=== PATIENT | female | born 1945 | race Caucasian/White ===

== ENCOUNTER 2023-08-09 11:08 | Outpatient (OUT) | payer MEDICARE, SELFPAY ==
[2023-08-09 14:30] LABS: Albumin Level 3.4 g/dL (3.4-5.0); Anion Gap 12.5; Calcium 8.8 mg/dL (8.5-10.1); Carbon Dioxide 27.6 mmol/L (21.0-32.0); Chloride 106 mmol/L (98-107); Estimated GFR (African America 29 (>=60); Estimated GFR (Non-African Ame 24 (>=60); Glucose 137 mg/dL (74-106); Phosphorus 4.3 mg/dL (2.6-4.7); Potassium 5.1 mmol/L (3.5-5.1); Sodium 141 mmol/L (136-145)
== END 2023-08-09 11:09 | disposition home or self-care (01) ==
LOC: LAB 11:08
PROVIDERS: PCP Internal Medicine
DX: I12.9 Hypertensive chronic kidney disease with stage 1 through stage 4 chronic kidney disease, or unspecified chronic kidney disease (principal); N18.4 Chronic kidney disease, stage 4 (severe)
CPT/HCPCS: 36415; 80069

== ENCOUNTER 2023-09-19 11:20 | Outpatient (OUT) | payer MEDICARE, SELFPAY ==
--- NOTE | 2023-09-19 11:26 | MM_ITS ---
Patient: ANAY NIEVES Exam Date: 09/19/2023 : 1945 Gender:F Ordering : DR MADDISON MENDEZ Admission #: [id number] Family : NON-STAFF PHYSICIAN Order #: [id number] CLICK HERE TO VIEW EXAM RADIOLOGY REPORT PROCEDURE: MM TOMOSYNTHESIS SCREENING BI COMPARISON: MG MAMM SCREEN 3D PEDRO CAD, 09/10/2021. MG MAMM SCREEN PEDRO W CAD, 08/31/2020. MG MAMM PEDRO SCRN W CAD DIG, 10/23/2013. MG MAMM SCREEN 3D PEDRO CAD, 09/13/2022. INDICATIONS: Screening Calculator Name NCI Breast Cancer Risk Assessment Tool 5 Year Breast Cancer Risk 3.00% Lifetime Breast Cancer Risk 4.60% Personal Breast Cancer No Personal Ovarian Cancer No Treatments HYSTERECTECTOMY AND PEDRO OOPHERECTOMY, RADIATION TREATMENTS Family Cancers None LOCATION: [facility] BREAST COMPOSITION: Scattered areas fibroglandular density. FINDINGS: DIAGNOSTIC CATEGORY 2--BENIGN FINDING: RIGHT BREAST: No significant suspicious finding. Stable biopsy marker clips and benign calcifications. No significant change has occurred. LEFT BREAST: No significant suspicious finding. Stable benign-appearing calcifications. No significant change has occurred. RECOMMENDATIONS: ROUTINE MAMMOGRAM AND CLINICAL EVALUATION IN 12 MONTHS. PLEASE NOTE: A NORMAL MAMMOGRAM DOES NOT EXCLUDE THE POSSIBILITY OF BREAST CANCER. A CLINICALLY SUSPICIOUS PALPABLE LUMP SHOULD BE BIOPSIED. Dictated by: Austin Benton M.D. on 09/20/2023 at 13:45 Approved by: Austin Benton M.D. on 09/20/2023 at 13:47
== END 2023-09-19 11:21 | disposition home or self-care (01) ==
LOC: MAMMO 11:21
PROVIDERS: Visit Provider Obstetrics & Gynecology
DX: Z12.31 Encounter for screening mammogram for malignant neoplasm of breast (principal)
CPT/HCPCS: 77063; 77067

== ENCOUNTER 2023-10-10 13:19 | Outpatient (OUT) | payer MEDICARE, SELFPAY ==
[2023-10-10 13:52] LABS: Creatinine Urine Random 84.04 mg/dL (20.00-300.00); Microalbum Creatinine Ratio Ur 80.9 mg/g (0.0-29.9); Microalbumin Urine Random 6.8 mg/dL (<=30.0)
[2023-10-10 14:02] LABS: Albumin Level 3.6 g/dL (3.4-5.0); Anion Gap 15.8; BUN Creatinine Ratio 46.1; Calcium 9.1 mg/dL (8.5-10.1); Carbon Dioxide 27.3 mmol/L (21.0-32.0); Chloride 103 mmol/L (98-107); Estimated GFR (African America 21 (>=60); Estimated GFR (Non-African Ame 17 (>=60); Glucose 124 mg/dL (74-106); Phosphorus 4.4 mg/dL (2.6-4.7); Potassium 4.1 mmol/L (3.5-5.1); Sodium 142 mmol/L (136-145)
[2023-10-10 14:17] LABS: Basophils Absolute Auto 0.1 10^3/uL (0.0-0.1); Eosinophils Absolute Auto 0.3 10^3/uL (0.0-0.7); Eosinophils Percent Auto 3.3 % (0.9-7.0); Hematocrit 37.2 % (36.0-48.0); Hemoglobin 12.3 g/dL (12.0-16.0); Immature Granulocytes Abs Auto 0.02 10^3/uL (0.00-0.03); Immature Granulocytes Pct Auto 0.2 % (0.0-0.5); Lymphocytes Absolute Auto 2.5 10^3/uL (1.2-3.8); Lymphocytes Percent Auto 23.7 % (20.5-60.0); Mean Corpuscular HGB Conc 33.1 g/dL (29.9-35.2); Mean Corpuscular Volume 93.7 fL (81.0-99.0); Mean Platelet Volume 10.4 fL (9.5-13.5); Monocytes Absolute Auto 0.9 10^3/uL (0.3-0.8); Monocytes Percent Auto 8.7 % (1.7-12.0); Neutrophils Absolute Auto 6.5 10^3/uL (1.4-6.5); Neutrophils Percent Auto 63.1 % (43.0-75.0); Platelet Count 254 10^3/uL (150-450); Red Blood Count 3.97 10^6/uL (4.20-5.40); Red Cell Distribution Width 13.3 % (11.0-15.0); White Blood Count 10.4 10^3/uL (4.0-11.0)
[2023-10-11 15:09] LABS: PTH, Intact 17 pg/mL (15-65)
== END 2023-10-10 13:20 | disposition home or self-care (01) ==
LOC: LAB 13:20
DX: I12.9 Hypertensive chronic kidney disease with stage 1 through stage 4 chronic kidney disease, or unspecified chronic kidney disease (principal); N18.4 Chronic kidney disease, stage 4 (severe); R80.9 Proteinuria, unspecified; E87.5 Hyperkalemia; E11.22 Type 2 diabetes mellitus with diabetic chronic kidney disease
CPT/HCPCS: 36415; 80069; 82043; 82306; 82570; 83970; 85025

== ENCOUNTER 2023-11-06 14:45 | Outpatient (OUT) | payer MEDICARE, SELFPAY ==
[2023-11-06 15:52] LABS: Albumin Level 3.5 g/dL (3.4-5.0); Anion Gap 11.9; BUN Creatinine Ratio 48.3; Calcium 9.1 mg/dL (8.5-10.1); Carbon Dioxide 29.8 mmol/L (21.0-32.0); Chloride 104 mmol/L (98-107); Estimated GFR (African America 23 (>=60); Estimated GFR (Non-African Ame 19 (>=60); Glucose 237 mg/dL (74-106); Phosphorus 4.7 mg/dL (2.6-4.7); Potassium 4.7 mmol/L (3.5-5.1); Sodium 141 mmol/L (136-145)
== END 2023-11-06 14:46 | disposition home or self-care (01) ==
LOC: LAB 14:49
DX: I12.9 Hypertensive chronic kidney disease with stage 1 through stage 4 chronic kidney disease, or unspecified chronic kidney disease (principal); N18.4 Chronic kidney disease, stage 4 (severe)
CPT/HCPCS: 36415; 80069

== ENCOUNTER 2023-11-15 13:45 | Outpatient (OUT) | payer MEDICARE, SELFPAY ==
[2023-11-15 14:13] LABS: Albumin Level 3.2 g/dL (3.4-5.0); Anion Gap 13.5; BUN Creatinine Ratio 55.6; Calcium 9.3 mg/dL (8.5-10.1); Carbon Dioxide 27.1 mmol/L (21.0-32.0); Chloride 102 mmol/L (98-107); Estimated GFR (African America 26 (>=60); Estimated GFR (Non-African Ame 21 (>=60); Glucose 242 mg/dL (74-106); Phosphorus 3.5 mg/dL (2.6-4.7); Potassium 4.6 mmol/L (3.5-5.1); Sodium 138 mmol/L (136-145)
== END 2023-11-15 13:46 | disposition home or self-care (01) ==
LOC: LAB 13:45
DX: I12.9 Hypertensive chronic kidney disease with stage 1 through stage 4 chronic kidney disease, or unspecified chronic kidney disease (principal); N18.4 Chronic kidney disease, stage 4 (severe)
CPT/HCPCS: 36415; 80069

== ENCOUNTER 2023-11-21 12:47 | Outpatient (OUT) | payer MEDICARE, SELFPAY ==
[2023-11-21 13:36] LABS: Albumin Level 3.1 g/dL (3.4-5.0); BUN Creatinine Ratio 45.9; Calcium 9.4 mg/dL (8.5-10.1); Carbon Dioxide 25.5 mmol/L (21.0-32.0); Chloride 104 mmol/L (98-107); Estimated GFR (African America 26 (>=60); Estimated GFR (Non-African Ame 22 (>=60); Glucose 404 mg/dL (74-106); Phosphorus 3.9 mg/dL (2.6-4.7); Sodium 135 mmol/L (136-145)
[2023-11-21 14:10] LABS: Potassium 6.5 mmol/L (3.5-5.1)
== END 2023-11-21 12:48 | disposition home or self-care (01) ==
LOC: LAB 12:47
DX: I12.9 Hypertensive chronic kidney disease with stage 1 through stage 4 chronic kidney disease, or unspecified chronic kidney disease (principal); N18.4 Chronic kidney disease, stage 4 (severe)
CPT/HCPCS: 36415; 80069

== ENCOUNTER 2023-11-21 16:15 | Observation (INO) | payer MEDICARE, SELFPAY ==
[2023-11-21] VITALS (12 sets, daily range): BP systolic 139–205; BP diastolic 68–108; PULSE 65–88; RESP 18–26; TEMP 36.3–36.6; O2SAT 95–99; BMI 33.7; BMI 34.2
--- NOTE | 2023-11-21 16:41 | PC.NURSE ---
Patient reports getting lab work done today and was told by her horticultural farm manager office to come to ER due to elevated potassium level. Patient denies any discomfort.
--- NOTE | 2023-11-21 16:42 | ECG_ITS ---
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
--- NOTE | 2023-11-21 16:45 | ED.GENADUL1 ---
HPI - General Adult General Chief complaint: Recheck/Abnormal Lab/Rx Stated complaint: SENT OVER BY DR Time Seen by Provider: 11/21/23 16:20 Source: patient Mode of arrival: walk-in Limitations: no limitations History of Present Illness HPI narrative: Patient sees a drug abuse worker in [place] for stage 4 kidney disease. She has been getting blood testing regularly for the last several weeks because her kidney function has been slowly worsening. She had blood drawn today at [facility] and the patient's BUN and K were markedly elevated so the OUTER DIAMETER GRINDER from the Internal Controls Consultant's office told the patient to go to the nearest ED. The patient has no complaints - no pain , nausea, vomiting. She denied any fluid loss recently or decreased PO intake. She had been taking diuretics previously and stopped them - at the direction of the drug abuse worker - about a week ago. She does not get dialysis. Related Data Home Medications Medication Instructions Recorded Confirmed aspirin 81 mg tablet,delayed 81 mg PO DAILY 11/21/23 11/21/23 release biotin 10,000 mcg capsule 10,000 mcg PO DAILY 11/21/23 11/21/23 carvedilol 25 mg tablet 25 mg PO BID 11/21/23 11/21/23 finerenone 10 mg tablet (Kerendia) 10 mg PO DAILY 11/21/23 11/21/23 insulin glargine 100 unit/mL (3 33 unit subcut DAILY 11/21/23 11/21/23 mL) subcutaneous pen (Lantus Solostar U-100 Insulin) magnesium oxide 500 mg capsule 500 mg PO DAILY 11/21/23 11/21/23 montelukast 10 mg tablet 10 mg PO DAILY 11/21/23 11/21/23 rosuvastatin 10 mg tablet 10 mg PO DAILY 11/21/23 11/21/23 sacubitril 97 mg-valsartan 103 mg 1 tab PO BID 11/21/23 11/21/23 tablet (Entresto) sodium zirconium cyclosilicate 10 10 g PO DAILY 11/21/23 11/21/23 gram oral powder packet (Lokelma) torsemide 20 mg tablet mg 11/21/23 Allergies Allergy/AdvReac Type Severity Reaction Status Date / Time Penicillins Allergy Severe Verified 11/21/23 16:31 PFSH [facility] Social History Smoking status: Never smoker Exam Narrative Exam Narrative: Nurses notes and vital signs reviewed and patient is not hypoxic. afebrile General: Well-appearing and in no apparent distress. Skin: Warm, dry, no pallor noted. No rash. Eye: Pupils are equal, round and EOMI. No scleral icterus. Ears, Nose, Mouth, and Throat: TM are clear, no posterior oropharynx erythema or nasal mucosal hypertrophy, uvula is mid-line Oral mucosa is moist Cardiovascular: Regular Rate and Rhythm without murmur, gallop or rub. Respiratory: No accessory muscle use or respiratory distress. Lungs are clear to auscultation, no wheezing, rales or rhonchi Musculoskeletal: normal ROM, no calf or popliteal tenderness, no lower extremity edema/swelling GI: Abdomen is soft, non-distended. Normal bowel sounds. No tenderness to palpation. No rebound, guarding, or rigidity noted. Neurological: A&O x4. No cranial nerve dysfunction observed. No truncal ataxia. Moves all extremities. Sensation intact. Psychiatric: Cooperative and interactive. Normal mood and affect. Constitutional Vital Signs, click to edit/add: Last Vital Signs Temp 97.8 F 11/21/23 16:25 Pulse 74 11/21/23 17:30 Resp 20 11/21/23 17:30 BP 140/72 11/21/23 17:30 Pulse Ox 98 11/21/23 17:30 O2 Del Method Room Air 11/21/23 16:25 Course Vital Signs Vital signs: Vital Signs Temperature 97.8 F 11/21/23 16:25 Pulse Rate 80 11/21/23 16:25 Respiratory Rate 20 11/21/23 16:25 Blood Pressure 164/108 H 11/21/23 16:25 Pulse Oximetry 97 11/21/23 16:25 Oxygen Delivery Method Room Air 11/21/23 16:25 Temperature 97.8 F 11/21/23 16:25 Pulse Rate 74 11/21/23 17:30 Respiratory Rate 20 11/21/23 17:30 Blood Pressure 140/72 11/21/23 17:30 Pulse Oximetry 98 11/21/23 17:30 Oxygen Delivery Method Room Air 11/21/23 16:25 Medical Decision Making MDM Narrative Medical decision making narrative: Patient was placed on monitoring and evaluation advisor and EKG obtained. Blood drawn and sent for evaluation, including repeat of the patient's BMP. She was ordered to receive a liter of NS IVF. ON redraw, the K elevated at 5.6. Her BUn is elevated at 100 and Cr elevated at 2.23. On review of the patient's medical records, the patient had elevated BUN to 124 in September and on November 15. Creatinine and has been about the same. Call placed to the sustainability consultant telehospitalist. Dr Latrice Kemp and I discussed the case and the patient will be admitted to [facility] for treatment of hyperkalemia. Patient ordered to receive calcium, bicarb, dextrose, insulin in the ED. EKG without any worrisome changes. Patient informed of need for admission and is agreeable to over night OBS stay. Lab Data Lab results reviewed: Yes I reviewed the patient's lab results Labs: Lab Results 11/21/23 Range/Units 17:05 WBC 9.8 (4.0-11.0) 10^3/uL RBC 3.98 L (4.20-5.40) 10^6/uL Hgb 11.8 L (12.0-16.0) g/dL Hct 36.3 (36.0-48.0) % MCV 91.2 (81.0-99.0) fL MCH 29.6 (26.7-34.0) pg MCHC 32.5 (29.9-35.2) g/dL RDW 13.4 (11.0-15.0) % Plt Count 233 (150-450) 10^3/uL MPV 10.4 (9.5-13.5) fL Neut % (Auto) 66.3 (43.0-75.0) % Lymph % (Auto) 21.7 (20.5-60.0) % Knox % (Auto) 8.3 (1.7-12.0) % Eos % (Auto) 2.7 (0.9-7.0) % Baso % (Auto) 0.8 (0.2-2.0) % Neut # (Auto) 6.5 (1.4-6.5) 10^3/uL Lymph # (Auto) 2.1 (1.2-3.8) 10^3/uL [place] # (Auto) 0.8 (0.3-0.8) 10^3/uL Eos # (Auto) 0.3 (0.0-0.7) 10^3/uL Baso # (Auto) 0.1 (0.0-0.1) 10^3/uL Abs Immat Gran (auto) 0.02 (0.00-0.03) 10^3/uL Imm/Tot Granulo (auto) 0.2 (0.0-0.5) % Sodium 138 (136-145) mmol/L Potassium 5.6 H (3.5-5.1) mmol/L Chloride 105 (98-107) mmol/L Carbon Dioxide 22.8 (21.0-32.0) mmol/L Anion Gap 15.8 BUN 100.0 H* (7.0-18.0) mg/dL Creatinine 2.23 H (0.55-1.02) mg/dL Est GFR ( Amer) 26 L (>=60) Est GFR (Non-Af Amer) 21 L (>=60) BUN/Creatinine Ratio 44.8 Glucose 243 H (74-106) mg/dL Calcium 9.7 (8.5-10.1) mg/dL Magnesium 2.3 (1.8-2.4) mg/dL Total Bilirubin 0.4 (0.2-1.0) mg/dL AST 18 (15-37) U/L ALT 24 (14-59) U/L Alkaline Phosphatase 105 (46-116) U/L Total Protein 7.3 (6.4-8.2) g/dL Albumin 3.2 L (3.4-5.0) g/dL Globulin 4.1 g/dL Albumin/Globulin Ratio 0.8 ECG Data Attestation: I personally reviewed and interpreted this ECG as follows: Interpretation: EKG interpretation: Emergency Department physician interpretation. Normal sinus rhythm at 75bpm. RBBB. EKG today is unchanged from one obtained 03/25/23.. Discharge Plan Discharge Chief Complaint: Recheck/Abnormal Lab/Rx Clinical Impression: End stage kidney disease, Acute hyperkalemia Patient Disposition: Admitted as Observation Time of Disposition Decision: 18:19 Prescriptions / Home Meds: No Action carvedilol 25 mg tablet 25 mg PO BID montelukast 10 mg tablet 10 mg PO DAILY rosuvastatin 10 mg tablet 10 mg PO DAILY Lokelma 10 gram powder in packet 10 g PO DAILY torsemide 20 mg tablet magnesium oxide 500 mg capsule 500 mg PO DAILY Kerendia 10 mg tablet 10 mg PO DAILY Entresto 97-103 mg tablet 1 tab PO BID aspirin 81 mg tablet,delayed release (DR/EC) 81 mg PO DAILY biotin 10,000 mcg capsule 10,000 mcg PO DAILY insulin glargine [Lantus Solostar U-100 Insulin] 100 unit/mL (3 mL) insulin pen 33 unit subcut DAILY Additional Instructions: dr zepeda, [facility] telemetry Referrals: Physician,Non-Staff, MD [Primary Care Provider] - 1 week
[2023-11-21] MEDS: 0.9 % SODIUM CHLORIDE 1,000 ML 999 ML IV (17:12)
[2023-11-21 17:25] LABS: Basophils Absolute Auto 0.1 10^3/uL (0.0-0.1); Basophils Percent Auto 0.8 % (0.2-2.0); Eosinophils Absolute Auto 0.3 10^3/uL (0.0-0.7); Eosinophils Percent Auto 2.7 % (0.9-7.0); Hematocrit 36.3 % (36.0-48.0); Hemoglobin 11.8 g/dL (12.0-16.0); Immature Granulocytes Abs Auto 0.02 10^3/uL (0.00-0.03); Immature Granulocytes Pct Auto 0.2 % (0.0-0.5); Lymphocytes Absolute Auto 2.1 10^3/uL (1.2-3.8); Lymphocytes Percent Auto 21.7 % (20.5-60.0); Mean Corpuscular HGB Conc 32.5 g/dL (29.9-35.2); Mean Corpuscular Hemoglobin 29.6 pg (26.7-34.0); Mean Corpuscular Volume 91.2 fL (81.0-99.0); Mean Platelet Volume 10.4 fL (9.5-13.5); Monocytes Absolute Auto 0.8 10^3/uL (0.3-0.8); Monocytes Percent Auto 8.3 % (1.7-12.0); Neutrophils Absolute Auto 6.5 10^3/uL (1.4-6.5); Neutrophils Percent Auto 66.3 % (43.0-75.0); Platelet Count 233 10^3/uL (150-450); Red Blood Count 3.98 10^6/uL (4.20-5.40); Red Cell Distribution Width 13.4 % (11.0-15.0); White Blood Count 9.8 10^3/uL (4.0-11.0)
[2023-11-21 17:35] LABS: Alanine Aminotransferase 24 U/L (14-59); Albumin Globulin Ratio 0.8; Albumin Level 3.2 g/dL (3.4-5.0); Alkaline Phosphatase 105 U/L (46-116); Anion Gap 15.8; Aspartate Amino Transferase 18 U/L (15-37); BUN Creatinine Ratio 44.8; Bilirubin Total 0.4 mg/dL (0.2-1.0); Calcium 9.7 mg/dL (8.5-10.1); Carbon Dioxide 22.8 mmol/L (21.0-32.0); Chloride 105 mmol/L (98-107); Estimated GFR (African America 26 (>=60); Estimated GFR (Non-African Ame 21 (>=60); Globulin 4.1 g/dL; Glucose 243 mg/dL (74-106); Magnesium 2.3 mg/dL (1.8-2.4); Potassium 5.6 mmol/L (3.5-5.1); Sodium 138 mmol/L (136-145); Total Protein 7.3 g/dL (6.4-8.2)
[2023-11-21] MEDS: DEXTROSE 50 %-WATER 25 GM/50 ML SYRINGE IV (18:15)
[2023-11-21] MEDS: SODIUM BICARBONATE 50 MEQ/50 ML 8.4% - SYRINGE IV (18:17)
[2023-11-21] MEDS: CALCIUM GLUCONATE 1,000 MG/10 ML VIAL 1000 MG IVP (18:19)
[2023-11-21] MEDS: INSULIN REGULAR 300 UNITS/3 ML 10 UNIT IV (18:20)
--- NOTE | 2023-11-21 21:42 | P.PN_ITS ---
Progress Note: Subjective Subjective Interval history: The patient is an 78-year-old female who with a history of hypertension and chronic kidney disease stage IV, who sees a concrete technician in [facility]. She has been consistently having elevated creatinine. On November 15, creatinine was elevated and diuretics were discontinued. She went to get outpatient lab work done today and was noted to have a potassium of 6.5 and that is what sent her to the emergency room. When they repeated the level, it was 5.6 in the ED. She was given calcium, bicarbonate, dextrose and Kayexalate. She is being admitted for further monitoring and hydration. Exam Narrative Exam Narrative: General : Alert and oriented x3 HEENT : Extraocular movements intact, pupils equal round and reactive to light and accommodation Neck: Supple, no JVD Chest: Clear to auscultation bilaterally, no wheezes Heart: Regular rate and rhythm, S1 and S2 heard Abdomen: Soft nontender nondistended. Extremities: No clubbing cyanosis or edema Neurologically: Moving all 4 extremities Skin: No rashes Constitutional Vital Signs, click to edit/add: Last Vital Signs Temp 97.3 F L 11/21/23 20:39 Pulse 65 11/21/23 20:39 Resp 20 11/21/23 20:39 BP 205/83 H 11/21/23 20:39 Pulse Ox 95 11/21/23 20:39 O2 Del Method Room Air 11/21/23 20:39 Progress Note: Objective Labs Labs: Short CBC 11/21/23 Range/Units 17:05 WBC 9.8 (4.0-11.0) 10^3/uL Hgb 11.8 L (12.0-16.0) g/dL Hct 36.3 (36.0-48.0) % Plt Count 233 (150-450) 10^3/uL BMP 11/21/23 17:05 Sodium 138 Potassium 5.6 H Chloride 105 Carbon Dioxide 22.8 BUN 100.0 H* Creatinine 2.23 H Glucose 243 H Calcium 9.7 Liver Function 11/21/23 Range/Units 17:05 Total Bilirubin 0.4 (0.2-1.0) mg/dL AST 18 (15-37) U/L ALT 24 (14-59) U/L Alkaline Phosphatase 105 (46-116) U/L Albumin 3.2 L (3.4-5.0) g/dL Progress Note: A&P Assessment and Plan (1) Acute hyperkalemia: (2) End stage kidney disease: Plan The patient is an 78-year-old female with above medical problems, presenting with hyperkalemia. Hyperkalemia -Provide supportive care -IV fluids -Hold Entresto and torsemide -Follow-up a.m. labs CKD stage IV -Appears to be stable, outpatient follow-up with concrete technician Accelerated hypertension -Hydralazine IV as needed Diabetes -Continue scheduled insulin and add sliding scale coverage DVT Prophylaxis - SCDs Medication review -Medication reconciliation form completed Goals of care -Full code Communications -Discussed with the emergency room physician -Discussed with the bedside nurse -Patient updated of plan of care, all questions answered to their satisfaction Disposition -Home when medically stable Telemedicine clause -As the provider of this telehealth evaluation, requested by the patient's e valuating physician, I attest that I introduced myself to the patient, provided my credentials and determined that telemedicine via a real-time, two-way interactive audio and video platform is an appropriate and effective means of providing this service. -I reviewed the patient's chart and had a discussion with the member of the patient's treatment team. -The patient and I mutually agreed with continuation of this evaluation via telemedicine. The patient consented for the telemedicine evaluation. -This virtual encounter was taken place from [place], [place]. The encounter was approximately 35 minutes. The nurse was present during the entire time of the encounter and was able to remove the stethoscope and appropriate directions. The patient was evaluated at [facility] Telemedicine Attestation Telemedicine Attestation I conducted this encounter from [] via secure live, [id number] video confer ence with the patient, located at [facility] with []. Prior to the interview, the risks and benefits of telemedicine were discussed with the patient and verbal consent was obtained.
[2023-11-21] MEDS: SODIUM CHLORIDE 0.45 % 1,000 ML 75 ML IV (22:25)
[2023-11-21] MEDS: HYDRALAZINE HCL 20 MG/ML VIAL 10 MG IVP (22:26)
[2023-11-21] MEDS: INSULIN ASPART 300 UNIT/3 ML PEN SUBQ (22:40)
[2023-11-22] VITALS (8 sets, daily range): BP systolic 165; BP diastolic 71; PULSE 75–105; RESP 20; TEMP 36.7; O2SAT 85–93
[2023-11-22 05:30] LABS: Basophils Absolute Auto 0.1 10^3/uL (0.0-0.1); Basophils Percent Auto 0.8 % (0.2-2.0); Eosinophils Absolute Auto 0.3 10^3/uL (0.0-0.7); Hematocrit 33.2 % (36.0-48.0); Hemoglobin 10.7 g/dL (12.0-16.0); Immature Granulocytes Abs Auto 0.02 10^3/uL (0.00-0.03); Immature Granulocytes Pct Auto 0.2 % (0.0-0.5); Lymphocytes Absolute Auto 2.3 10^3/uL (1.2-3.8); Lymphocytes Percent Auto 25.9 % (20.5-60.0); Mean Corpuscular HGB Conc 32.2 g/dL (29.9-35.2); Mean Corpuscular Hemoglobin 29.6 pg (26.7-34.0); Mean Platelet Volume 10.5 fL (9.5-13.5); Monocytes Absolute Auto 1.2 10^3/uL (0.3-0.8); Monocytes Percent Auto 12.9 % (1.7-12.0); Neutrophils Absolute Auto 5.1 10^3/uL (1.4-6.5); Neutrophils Percent Auto 57.2 % (43.0-75.0); Platelet Count 191 10^3/uL (150-450); Red Blood Count 3.61 10^6/uL (4.20-5.40); Red Cell Distribution Width 13.3 % (11.0-15.0); White Blood Count 8.9 10^3/uL (4.0-11.0)
[2023-11-22 05:38] LABS: BUN Creatinine Ratio 46.9; Calcium 9.2 mg/dL (8.5-10.1); Carbon Dioxide 23.6 mmol/L (21.0-32.0); Chloride 104 mmol/L (98-107); Estimated GFR (African America 30 (>=60); Estimated GFR (Non-African Ame 25 (>=60); Glucose 308 mg/dL (74-106); Potassium 5.6 mmol/L (3.5-5.1); Sodium 134 mmol/L (136-145)
[2023-11-22] MEDS: INSULIN ASPART 300 UNIT/3 ML PEN SUBQ ×2 (08:30→12:30)
[2023-11-22] MEDS: INSULIN DETEMIR 300 UNIT/3 ML INSULN.PEN 34 UNIT SUBQ (08:31)
[2023-11-22] MEDS: CARVEDILOL 25 MG TABLET PO (08:32)
[2023-11-22] MEDS: ASPIRIN 81 MG TABLET.DR PO (08:32)
[2023-11-22] MEDS: MAGNESIUM OXIDE 400 MG TABLET PO (08:32)
[2023-11-22] MEDS: SODIUM ZIRCONIUM CYCLOSILICATE 10 GM POWD.PACK PO (08:32)
[2023-11-22] MEDS: ATORVASTATIN CALCIUM 40 MG TABLET PO (08:32)
[2023-11-22] MEDS: MONTELUKAST SODIUM 10 MG TABLET PO (08:32)
--- NOTE | 2023-11-22 09:35 | P.HP_ITS ---
<Statement entered by Shaikh Marlee MD - 11/22/23 14:25> This documentation has been reviewed and approved. Seen and examined. Discussed with Irina. Patient sent for abnormal potassium by [facility] office. Admitted overnight for mild deydration, monitoring for hypkalemia Exam NAD, sitting on a recliner CTA b/l, normal RR Normal HR, no murmurs Assessment/plan Hyperkalemia CKD 4-5 HTN Improved. Hold entresto until seen by Cardiology. On [facility] for hyperkalemia. F/u with PCP, nephrology as outpatient. Stable for discharge H&P: HPI History of Present Illness Chief complaint: SENT OVER BY DR MENDEZ Narrative: 11/22/23 0825 This is an 78-year-old female patient with a past medical history as outlined below including CKD stage IV following with a tactical deception plans officer in [facility] hypertension, and DM2; who presented to the ED yesterday evening at the instruction of her nephrology office. Nephrology has been following the patient's labs closely for the last several weeks due to worsening renal function. They have been reducing her torsemide dosing and just discontinued her torsemide altogether on the . Follow up labs were obtained on the and she was contacted by her tactical deception plans officer to present to the ED d/t hyperkalemia (6.5). Work up in the ED revealed mild hyperkalemia of 5.6, stable renal function at her baseline CKD4, and was otherwise unremarkable. She was treated with Calcium gluconate, insulin w/ dextrose and sodium bicarb. The pt denies any symptoms with her hyperkalemia. D/t the drop in K+ labs prior to any treatment it is possible the initial sample was hemolyzed. She was admitted to observation to the hospitalist service last night. At the time of my exam the patient is sitting up in a bedside chair. She is awake and alert and in her usual state of health. She denies any adverse symptoms at all. She confirms that her tactical deception plans officer has been reducing her torsemide dosing over the last year and recently discontinued it altogether within the last 5 or so days. Her potassium level remains mildly elevated and is unchanged since labs were obtained in the ED. Her renal function is stable at her baseline CKD4. An EKG obtained in the ED was reviewed and there are no acute concerning changes. She has been taking her Lokelma as prescribed. As the pt is stable and her potassium level, although slightly elevated is not clinically concerning, we will discharge the pt home today. She has been instructed to take her Lokelma twice daily x 48 hrs, then resume home daily dosing. She should follow up with her PCP in 3-5 days and obtain a repeat BMP within 1 week or as soon as her tactical deception plans officer would like follow up labs. We have held her Entresto for now pending re-evaluation by her PCP if this is still indicated w/ her worsening renal function. Review of Systems ROS Status of ROS 10 or more systems reviewed and unremark able except as noted in history and below [facility] Medical History (Updated 11/22/23 @ 11:16 by Irina Wynne NP) Hyperlipidemia ?E78.5 - Hyperlipidemia, unspecified (ICD-10) CKD (chronic kidney disease) stage 4, GFR 15-29 ml/min ?N18.4 - Chronic kidney disease, stage 4 (severe) (ICD-10) End stage kidney disease ?N18.6 - End stage renal disease (ICD-10) Hypertension ?I10 - Essential (primary) hypertension (ICD-10) Hernia of abdominal wall ?K43.9 - Ventral hernia without obstruction or gangrene (ICD-10) Diabetes ?E11.9 - Type 2 diabetes mellitus without complications (ICD-10) Surgical History (Updated 11/21/23 @ 20:55 by Liv Nevarez RN) History of appendectomy ?Z90.49 - Acquired absence of other specified parts of digestive tract (ICD- 10) History of hysterectomy ?Z90.710 - Acquired absence of both cervix and uterus (ICD-10) Family History (Updated 11/21/23 @ 20:57 by Liv Nevarez RN) Mother Family history of CHF (congestive heart failure) Family history of hypertension Family history of myocardial infarction Father Family history of CHF (congestive heart failure) Family history of diabetes mellitus Family history of myocardial infarction Social History (Updated 11/21/23 @ 20:59 by Liv Nevaerz RN) Within the past year, how often did you have a drink containing alcohol: never Within the past year, how often did you have six or more drinks on one occasion: never Score interpretation: A score less than 3 is consistent with normal alcohol consumption. 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 Known occupational exposures/hazards: No Highest level of school completed/degree received: high school graduate Are you now , , , , never or living with a partner: In a typical week, how many times do you talk on the telephone with family, friends, or neighbors: once per week How often do you get together with friends or relatives: once per week How often do you attend mosque or congregation services: 4 or more times per year Do you belong to any clubs or organizations such as mosque groups unions, [employer] or athletic groups, or school groups: no Total score: 2 Score interpretation: A score of greater than or equal to 2 indicates the lowest level of social isolation. Little interest or pleasure in doing things: not at all Feeling down, depressed, or hopeless: not at all Feel stressed/tense/nervous/anxious/difficulty sleeping: not at all Gender Identity: female Meds Home Medications and Allergies Home Medications Medication Instructions Recorded Confirmed Type aspirin 81 mg tablet,delayed 81 mg PO DAILY 11/21/23 11/21/23 History release biotin 10,000 mcg capsule 10,000 mcg PO DAILY 11/21/23 11/21/23 History carvedilol 25 mg tablet 25 mg PO BID 11/21/23 11/21/23 History finerenone 10 mg tablet (Kerendia) 10 mg PO DAILY 11/21/23 11/21/23 History insulin glargine 100 unit/mL (3 34 unit subcut DAILY 11/21/23 11/21/23 History mL) subcutaneous pen (Lantus Solostar U-100 Insulin) insulin lispro-aabc 100 unit/mL 15 unit subcut TID 11/21/23 11/21/23 History subcutaneous pen (Lyumjev KwikPen U-100 Insulin) magnesium oxide 500 mg capsule 500 mg PO DAILY 11/21/23 11/21/23 History montelukast 10 mg tablet 10 mg PO DAILY 11/21/23 11/21/23 History rosuvastatin 10 mg tablet 10 mg PO DAILY 11/21/23 11/21/23 History sacubitril 97 mg-valsartan 103 mg 1 tab PO BID 11/21/23 11/21/23 History tablet (Entresto) sodium zirconium cyclosilicate 10 10 g PO DAILY 11/21/23 11/21/23 History gram oral powder packet (Lokelma) torsemide 20 mg tablet 20 mg PO DAILY 11/21/23 11/21/23 History Allergies Allergy/AdvReac Type Severity Reaction Status Date / Time Penicillins Allergy Severe Verified 11/21/23 16:31 Exam Constitutional Vital Signs, click to edit/add: Last Vital Signs Temp 98.0 F 11/22/23 05:59 Pulse 79 11/22/23 08:00 Resp 20 11/22/23 05:59 BP 165/71 H 11/22/23 05:59 Pulse Ox 93 L 11/22/23 05:59 O2 Del Method Room Air 11/22/23 05:59 Common normals: no apparent distress, oriented x3, alert and well nourished General appearance: cooperative Orientation/consciousness: Yes awake HENMT Common normals: normocephalic, head/scalp atraumatic, hearing grossly normal bilaterally, external nose normal and moist oral mucous membranes Eye Common normals: PERRL, EOMs intact bilaterally, conjunctivae normal and no scleral icterus Alignment: alignment normal Eyelid: eyelids normal Neck & C-Spine Common normals: full ROM, supple and no JVD Chest Common normals: inspection of chest normal Chest: symmetrical chest wall rise Respiratory Common normals: normal respiratory effort, no retractions, no use of accessory muscles and clear to auscultation bilaterally Effort & inspection: able to speak in complete sentences Cardio Common normals: no JVD, regular rate, regular rhythm, S1 normal heart sound, S2 normal heart sound, no gallops, no clicks, no murmurs, no rub and peripheral pulses 2+ throughout GI Common normals: Normal to inspection, nondistended, normoactive bowel sounds present, soft to palpation, non-tender, no hepatosplenomegaly, no masses and no bruits Bladder/kidney exam: bladder normal to palpation Back & Pelvis Common normals: thoracic and lumbar spine normal to inspection Extremity Common normals: normal capillary refill General: normal exam except as noted and edema (Tr-1+ Bilat insteps/ankles); no clubbing and no cyanosis Neuro [place] Coma Scale: GCS not evaluated Common normals: CN's II-XII intact bilaterally, moves all extremities, no focal motor deficits and no sensory deficits noted Speech: speech normal Motor exam: strength 5/5 throughout Psych Common normals: mental status grossly normal, thought process normal, affect normal and activity/motor behavior normal Results Labs Labs: Short CBC 11/21/23 11/22/23 Range/Units 17:05 04:45 WBC 9.8 8.9 (4.0-11.0) 10^3/uL Hgb 11.8 L 10.7 L (12.0-16.0) g/dL Hct 36.3 33.2 L (36.0-48.0) % Plt Count 233 191 (150-450) 10^3/uL BMP 11/21/23 11/22/23 17:05 04:45 Sodium 138 134 L Potassium 5.6 H 5.6 H Chloride 105 104 Carbon Dioxide 22.8 23.6 BUN 100.0 H* 91.0 H* Creatinine 2.23 H 1.94 H Glucose 243 H 308 H Calcium 9.7 9.2 Liver Function 11/21/23 Range/Units 17:05 Total Bilirubin 0.4 (0.2-1.0) mg/dL AST 18 (15-37) U/L ALT 24 (14-59) U/L Alkaline Phosphatase 105 (46-116) U/L Albumin 3.2 L (3.4-5.0) g/dL Pulse Oximetry Attestation: I have reviewed the pertinent pulse oximetry results. Assessment and Plan Assessment and Plan (1) Acute hyperkalemia: Assessment and Plan: ACUTE * Adm observation * K+ 6.5 on outpatient labs, but down to 5.6 on arrival to the ED prior to treatment * Calcium gluconate, insulin/dextrose, bicarb given in ED * Gentle IVFs given overnight * Likely d/t recent discontinuation of home Torsemide and/or hemolyzed outpatient sample * No EKG changes or other symptoms reported * K+ stable at 5.6 today, remains mildly elevated * D/C home * Take Lokelma BID x 2 days, then resume usual once daily dosing * Hold Entresto on d/c pending re-evaluation by PCP/Nephrology * Recommend repeat BMP within 1 week (2) CKD (chronic kidney disease) stage 4, GFR 15-29 ml/min: Assessment and Plan: CHRONIC * Baseline renal function over the last 3 months: * BUN - 82-124 * Cr - 2.0-2.7 * GFR - 17-24 * Renal function remains stable, slightly improved from baseline after gentle IVFs * Continue home Kerendia * Defer to nephrology for outpatient follow up (3) Hypertension: Assessment and Plan: CHRONIC * Continue home Coreg * Hold home Entresto for now d/t worsening renal fx and no known CHF history (4) Diabetes: Assessment and Plan: CHRONIC * Continue home Glargine and Lyumjev kwikPen for basal and carb coverage * Med dose SSI glucose correction * Continue home Kerendia (5) Hyperlipidemia: Assessment and Plan: CHRONIC * Continue home statin
--- NOTE | 2023-11-22 10:24 | CM.NOTE ---
Rounds made with taylor Dillon for discharge to home today. Discussed with pt about stopping Entresto until f/u with family doctor.
[2023-11-22 12:34] LABS: Potassium 5.6 mmol/L (3.5-5.1)
== END 2023-11-22 14:03 | disposition home or self-care (01) ==
LOC: ER 18:20 → MS 20:27
PROVIDERS: Internal Medicine; Nurse Practitioner; Admitting Provider Internal Medicine; Emergency Provider Emergency Medicine; Visit Provider Internal Medicine
DX: E87.5 Hyperkalemia (principal); I12.0 Hypertensive chronic kidney disease with stage 5 chronic kidney disease or end stage renal disease; N18.5 Chronic kidney disease, stage 5; E11.22 Type 2 diabetes mellitus with diabetic chronic kidney disease; E86.0 Dehydration; E78.5 Hyperlipidemia, unspecified; Z79.899 Other long term (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; Z79.82 Long term (current) use of aspirin; Z79.4 Long term (current) use of insulin; Z90.49 Acquired absence of other specified parts of digestive tract; Z90.710 Acquired absence of both cervix and uterus
CPT/HCPCS: 36415; 80048; 80053; 80069; 83735; 84132; 85025; 93005; 96361; 96374; 96375; 99285; G0378; Q3014

== ENCOUNTER 2023-12-01 13:35 | Outpatient (OUT) | payer MEDICARE, SELFPAY ==
--- OUTSIDE RECORDS SUMMARY | 2023-12-01 13:40 | XMS_ITS | CCD ---
Author Name Unknown Address [address] [place] [address] [facility] Team Providers Care Solid Waste Facility Supervisor Name Role Phone Crys GERIATRIC SOCIAL WORKER.Tiera CAM Unavailable [phone] TIERA SPANGLER Referring Unavailable CRYS, TIERA Sultana Referring Unavailable VALONE, DR PARSONS Primary Care Unavailable NOLAN, JOHAN Attending Unavailable NOLAN, JOHAN Consulting Unavailable JOHAN FRANCISCO Admitting Unavailable JUAN GARRETT Consulting Unavailable AKBAR ., DR SHAHRZAD Laurent Admitting Unavailable VALONE, DR PARSONS Primary Care Unavailable AKBAR ., DR SHAHRZAD Laurent Attending Unavailable AKBAR ., DR SHAHRZAD Laurent Consulting Unavailable PAY ., DR PATEL Consulting Unavailable AHDOOT, JUNA Consulting Unavailable EL, ELLEN Consulting Unavailable VALONE, DR PARSONS Consulting Unavailable VALONE, DR PARSONS Admitting Unavailable VALONE, DR PARSONS Primary Care Unavailable VALONE, DR PARSONS Attending Unavailable VALONE, DR PARSONS Primary Care Unavailable ZIEBER, DR MAHOGANY Crabtree Consulting Unavailable VANESSA, DR WASHBURN Admitting Unavailable VANESSA, DR WASHBURN Attending Unavailable VANESSA, DR WASHBURN Consulting Unavailable VALONE, DR PARSONS Primary Care Unavailable MISC, DR BERMUDEZ Admitting Unavailable MISC, DR BERMUDEZ Attending Unavailable MISC, DR BERMUDEZ Consulting Unavailable VALONE, DR PARSONS Consulting Unavailable VALONE, DR PARSONS Primary Care Unavailable VALONE, DR PARSONS Admitting Unavailable VALONE, DR PARSONS Attending Unavailable PAY ., DR PATEL Consulting Unavailable VALONE, DR PARSONS Primary Care Unavailable JOHAN FRANCISCO Admitting Unavailable JOHAN FRANCISCO Attending Unavailable Crys GERIATRIC SOCIAL WORKER.Tiera CAM Unavailable [phone] Crys GERIATRIC SOCIAL WORKER.Tiera CAM Unavailable [phone] CRYS, TIERA Sultana Attending Unavailable CRYS, TIERA Sultana Referring Unavailable CRYS, TIERA Sultana Attending Unavailable BOSTON ABDI Attending Unavailable MADDISON MENDEZ Attending Unavailable FLORENCE SKINNER Attending Unavailable ISSA NORTON Referring Unavailable Allergies Allergy Classification Reported Allergen(s) Allergy Type Date of Onset Reaction(s) Facility (14 sources) Acetaminophen / Codeine; Translations: [ACETAMINOPHEN-CO DEINE] Drug Allergy 0 Other: See Comments [facility] (14 sources) benzonatate; Translations: [BENZONATATE] Drug Allergy 0 Vomiting [facility] (14 sources) Cephalexin; Translations: [CEPHALEXIN] Drug Allergy 0 Rash [facility] (14 sources) Ciprofloxacin; Translations: [CIPROFLOXACIN] Drug Allergy 9 Other: See Comments [facility] (14 sources) Clindamycin; Translations: [CLINDAMYCIN] Drug Allergy 9 Other: See Comments [facility] (5 sources) Penicillins; Translations: [PENICILLINS] Drug Allergy 4 Other: See Comments [facility] (9 sources) Penicillins Drug Allergy 4 Other: See Comments [facility] (1 source) benzonatate Drug Allergy 0 [facility] (1 source) Cephalexin Drug Allergy 0 [facility] (1 source) Ciprofloxacin Drug Allergy [facility] (1 source) Clindamycin Drug Allergy [facility] (1 source) Penicillins Drug allergy (disorder) 4 [facility] (1 source) Tylenol-Codeine #3 Drug allergy (disorder) 0 [facility] Medications Completed/Discontinued Medications Medication Drug Class(es) Dates Sig (Normalized) Sig (Original) amLODIPine 5 mg oral tablet (1 source) Dihydropyridine Calcium Channel Rachael Start: 08-10-2021 End: 05-03-2022 amLODIPine (NORVASC) 5 mg tablet Pt akes three times a week 1 tablet 0 08/10/2021 05/03/2022 Discontinued Comment on above: Pt akes three times a week aspirin 81 mg chewable tablet (12 sources) Platelet Aggregation Inhibitor, Nonsteroidal Anti-inflammatory Drug take 1 tablet by mouth once daily aspirin 81 mg chewable tablet Take 81 mg by mouth once daily. 0 Active Comment on above: Take 81 mg by mouth once daily. biotin 10 mg oral capsule (12 sources) Biotin 10,000 mc g cap Take by mouth once daily. 0 Active Comment on above: Take by mouth once d aily. CALCIUM-VITAMIN D3 ORAL (12 sources) CALCIUM-VITAMIN D3 ORAL Take by mouth. 0 Active Comment on above: Take by mouth. carvedilol 25 mg oral tablet (12 sources) alpha-Adrenergic Rachael, beta-Adrenergic Rachael take 1 tablet by mouth twice daily at mealtime carvedilol (COREG) 25 mg tablet Take 25 mg by mouth twice daily with meals. 0 Active Comment on above: Take 25 mg by mouth twice daily with meals. cholecalciferol 0.05 mg oral capsule (12 sources) Vitamin D Start: 11-13-2019 take 1 capsule by mouth once daily Cholecalciferol, Vitamin D3, 50 mcg (2,000 unit) cap Take 1 capsule by mouth once daily. 0 11/13/2019 Active Comment on above: Take 1 capsule by [facility] once daily. insulin glargine,hum.rec.anl og (LANTUS SOLOSTAR U-100 INSULIN SUBCUTANEOUS) (12 sources) inject 34 [IU] by subcutaneous injection once daily insulin glargine,hum.rec.a nlog (LANTUS SOLOSTAR U-100 INSULIN SUBCUTANEOUS) Inject subcutaneously. 34 units daily 0 Active Comment on above: Inject subcutaneousl y. 34 units daily sensor 3 ml insulin lispro-aabc 100 unt/ml pen injector (9 sources) Insulin Analog insulin lispro-aabc (LYUMJEV KWIKPEN) 100 unit/mL insulin pen Inject subcutaneously three times daily before meals. 0 Active End: 05-03-2022 insulin lispro (HUMALOG KWIK PEN INSULIN) 100 unit/mL inpn Inject subcutaneously three times daily before meals. 0 05/03/2022 Discontinued Comment on above: Inject subcutaneousl y three times daily before meals. KERENDIA 10 mg tablet (12 sources) Start: 01-24-20 take 1 tablet by mouth once daily KERENDIA 10 mg tablet Take 10 mg by mouth once daily. 0 01/24/2022 Active Comment on above: Take 10 mg by mouth once daily. magnesium oxide 500 mg oral tablet (9 sources) take 1 tablet by mouth once daily Magnesium Oxide 500 mg tab Take 500 mg by mouth once daily. 0 Active Comment on above: Take 500 mg by mouth once daily. montelukast 10 mg oral tablet (12 sources) Leukotriene Receptor Antagonist Start: 01-30-20 22 take 1 tablet by mouth once daily montelukast (SINGULAIR) 10 mg tablet Take 10 mg by mouth once daily. 0 01/29/2022 Active Comment on above: Take 10 mg by mouth once daily. multivit,thx,calcium, iron,mins (MULTIVITAMIN AND MINERAL ORAL) (12 sources) multivit,thx,earl cium ,iron,mins (MULTIVITAMIN AND MINERAL ORAL) Take by mouth once daily. 0 Active Comment on above: Take by mouth once d aily. rosuvastatin calcium 10 mg oral tablet (4 sources) HMG-CoA Reductase Inhibitor End: 01-10-20 23 take 1 tablet by mouth once daily rosuvastatin (CRESTOR) 10 mg tablet Take 10 mg by mouth once daily. 0 01/10/2023 Discontinued Comment on above: Take 10 mg by mouth once daily. sacubitril 97 mg / valsartan 103 mg oral tablet (13 sources) Angiotensin 2 Receptor Rachael Start: 05-03-20 22 take 1 tablet by mouth twice daily sacubitril-valsartan (ENTRESTO) 97-103 mg tablet Take 1 tablet by mouth twice daily. 0 05/03/2022 Active End: 05-03-2022 take 1 tablet by mouth twice daily sacubitril-valsartan (ENTRESTO) 49-51 mg tablet Take 1 tablet by mouth twice daily. 0 05/03/2022 Discontinued Comment on above: Take [address] [facility] twice daily. sodium polystyrene sulfonate 68584 mg powder for oral suspension (4 sources) Start: 2 End: 3 take 15 g by mouth three times weekly sodium polystyrene sulfonate (KAYEXALATE) powder Take 15 g by mouth three times a week. on Monday, Monday and Monday 453 g 2 05/04/2022 01/10/2023 Discontinued Comment on above: Take 15 g by mouth t hree times a week. Monday, Monday and Monday Take 15 g by mouth t hree times a week. on Monday, Monday and Monday sodium zirconium cyclosilicate 40065 mg powder for oral suspension (10 sources) Start: 3 End: 3 take 1 dose by mouth once daily sodium zirconium cyclosilicate (LOKELMA) 10 gram oral packet Take 1 Packet by mouth once daily. Mix powder in 45 mL of water, stir and drink immediately. 30 Packet 11 01/10/2023 Active Comment on above: Take 1 Packet by chloe th once daily. Mix powder in 45 mL of water, stir and drink immediately. torsemide 20 mg oral tablet (10 sources) Loop Diuretic Start: 3 take 1 tablet by mouth every other day torsemide (DEMADEX) 20 mg tablet Take 1 tablet by mouth every other day. 0 11/08/2023 Active Start: 10-11-2023 End: 11-08-2023 take 1 tablet by mouth once daily torsemide (DEMADEX) 20 mg tablet Take 1 tablet by mouth once daily. 90 tablet 3 10/11/2023 11/08/2023 Discontinued Start: 09-29-2022 take 2 tablets by mo uth once daily in the morning torsemide (DEMADEX) 20 mg tablet TAKE TWO TABLETS BY MOUTH ONCE DAILY IN THE MORNING 0 09/29/2022 Active Start: 04-20-2021 End: 05-03-2022 take 1 tablet by mouth once daily torsemide (DEMADEX) 20 mg tablet Take 1 tablet by mouth once daily. 90 tablet 3 04/20/2021 05/03/2022 Discontinued Comment on above: Take 1 tablet by chloe th once daily. TAKE TWO TABLETS BY MOUTH ONCE DAILY IN THE MORNING Take 1 tablet by chloe th every other day. vitamin e 450 mg oral capsule (12 sources) take 1 capsule by mouth once daily Vitamin E, dl, acetate, 1,000 unit capsule Take 1,000 Units by mouth once daily. 0 Active Comment on above: Take 1,000 Units by mouth once daily. Problems Active Problems Problem Classification Problem Date Documented Da te Episodic/Chronic Chronic kidney disease (5 sources) Chronic kidney disease, stage 4 (severe); Translations: [Chronic kidney disease, unspecified] Onset: 11-12-2019 Chronic Congestive heart failure; nonhypertensive (14 sources) Chronic combined systolic and diastolic heart failure; Translations: [Chronic combined systolic (congestive) and diastolic (congestive) heart failure] Onset: 11-12-2019 Chronic Diabetes mellitus with complications (19 sources) Type 2 diabetes mellitus; Translations: [Type 2 diabetes mellitus with diabetic chronic kidney disease] Onset: 11-12-2019 Chronic Diabetes mellitus without complication (1 source) Type 2 diabetes mellitus without complications; Translations: [TYPE 2 DM WITHOUT COMPLICATIONS] Onset: 03-28-2023 Chronic Disorders of lipid metabolism (14 sources) Hyperlipidemia; Translations: [Other hyperlipidemia] Onset: 11-12-2019 11-12-2019 Chronic Essential hypertension (13 sources) Essential hypertension; Translations: [Essential (primary) hypertension] Onset: 11-12-2019 11-12-2019 Chronic Fluid and electrolyte disorders (6 sources) Hyperkalemia; Translations: [Hyperkalemia] Onset: 09-18-2022 Episodic Genitourinary symptoms and ill-defined conditions (4 sources) Proteinuria; Translations: [Proteinuria, unspecified] Onset: 01-10-2023 Episodic Hypertension with complications and secondary hypertension (20 sources) Chronic kidney disease stage 4; Translations: [Hypertensive chronic kidney disease with stage 1 through stage 4 chronic kidney disease, or unspecified chronic kidney disease] Onset: 11-12-2019 Chronic Inflammation; infection of eye (except that caused by tuberculosis or sexually transmitteddisease) (2 sources) Unspecified conjunctivitis; Translations: [Unspecified acute conjunctivitis, bilateral] Onset: 03-28-2023 Episodic Nausea and vomiting (1 source) Vomiting, unspecified; Translations: [VOMITING UNSPECIFIED] Onset: 03-28-2023 Episodic Nutritional deficiencies (3 sources) Vitamin D deficiency; Translations: [Vitamin D deficiency, unspecified] Onset: 01-10-2023 Chronic Other aftercare (1 source) [employer] (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 of aspirin; Translations: [CHUTE BOSS CURRENT USE OF ASPIRIN] Onset: 03-28-2023 Episodic Other aftercare (1 source) assisted (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 of insulin; Translations: [MCFP CURRENT USE OF INSULIN] Onset: 03-28-2023 Episodic Other aftercare (5 sources) Other alf (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; Translations: [OTH CHUTE BOSS CURRENT DRUG THERAPY] Onset: 09-14-2022 Episodic Other upper respiratory infections (2 sources) Acute upper respiratory infection, unspecified; Translations: [Acute sinusitis, unspecified] Onset: 03-28-2023 Episodic Residual codes; unclassified (1 source) Acquired absence of both cervix and uterus; Translations: [ACQUIRED ABSENCE BOTH CERVIX AND UTERUS] Onset: 03-28-2023 Episodic Unclassified (2 sources) COUGH, UNSPECIFIED; Translations: [COUGH, UNSPECIFIED] Onset: 03-28-2023 Unclassified (1 source) CONTACT W/AND (SUSP) EXPOS COVID-19; Translations: [CONTACT W/AND (SUSP) EXPOS COVID-19] Onset: 03-28-2023 Past or Other Problems Problem Classification Problem Date Documented Da te Episodic/Chronic Other lower respiratory disease (1 source) Shortness of breath; Translations: [SHORTNESS OF BREATH] Onset: 11-29-2022 Episodic Other lower respiratory disease (1 source) Dyspnea, unspecified; Translations: [DYSPNEA UNSPECIFIED] Onset: 09-18-2022 Episodic Other screening for suspected conditions (not mental disorders or infectious disease) (5 sources) Other specified abnormal findings of blood chemistry; Translations: [Encounter for screening mammogram for malignant neoplasm of breast] Onset: 09-13-2022 Episodic Residual codes; unclassified (3 sources) Transient alteration of awareness; Translations: [TRANSIENT ALTERATION OF AWARENESS] Onset: 11-04-2022 Episodic Syncope (1 source) Syncope and collapse; Translations: [SYNCOPE AND COLLAPSE] Onset: 11-29-2022 Episodic Unclassified (1 source) COUGH, UNSPECIFIED; Translations: [COUGH, UNSPECIFIED] Onset: 03-25-2023 Results Test Name Value Interpretation Reference Range Facility [facility] 11-21-2023 [facility] Telephone (MIDMAV) VARSHA NIEVES ([id number]) 1945 F Date Time Provider Department 11/21/23 TIERA SPANGLER [facility] During your visit today, we recorded the following information about you: Irina Allen RN 11/21/2023 2:15 PM Signed Patient?s identity has been confirmed by name and birthdate: Yes Call received from Varghese Gillespie at [facility] at 2:08 PM to report a critical value for Potassium and BUN with a result of 6.5 and 100 respectively. These are labs drawn today 11/21/2023. Provider Mague Spangler CNP was notified of the result at 2:14 PM via high priority routing directly toher and [facility] nurse pool.. also calling [facility] nurse's station to point out high priority message for critical lab results Irina Allen, HELENA, RN He said he is FAXING results over to FAX # [phone] Tiera Spangler APRN.DORINA 11/21/2023 2:33 PM Signed Called pt re: below Recommend ER eval for continued rise in BUN and hyperkalemia No answer LMTCB and that she needs to go to local ER for eval Called x 2 Await call back Tiera Spangler APRN.Tiera Pugh APRN.DORINA 11/21/2023 2:53 PM Signed Attempted to reach pt again No answer LMTCB Tiera Spangler APRN.Irina Figueroa, LLOYD 11/21/2023 4:05 PM Signed Pt called back She got the message about going to her Local ED She is having her drive her to the [place] [facility] Pt was asking if Provider Crys was going to call report / or tell them she was coming? I do not know if that is the plan; but I told pt not to wait and to have her take her there now but I would route this message to the SERVICE AND REPAIR SUPERVISOR/team Marylu Headley DO 11/28/2023 12:08 PM Signed Called patient for follow up She went to the ED and states her repeat K was improved, suspecting hemolyzed sample, reports getting repeat labs this week, on Monday. She will have them send us the results. She states she is feeling well. Will ask office to get labs forwarded from her ED visit. Marylu Headley DO November 28, 2023, 12:07 PM Allergies As of Date: 11/21/2023 Noted Allergy Reaction ACETAMINOPHEN-CODEINE 11/27/1999 14 - Other: See Comments BENZONATATE 11/27/1999 11 - Vomiting CEPHALEXIN 11/27/1999 2 - Rash CIPROFLOXACIN 11/12/2019 14 - Other: See Comments CLINDAMYCIN 11/12/2019 14 - Other: See Comments PENICILLINS 11/07/2014 14 - Other: See Comments Date Reviewed: 11/01/2023 Reviewed by: Irina Allen RN - Fully Assessed Reason for Visit: critcal lab results [Other] Prescriptions as of 11/28/2023 - torsemide (DEMADEX) 20 mg tablet Take 1 tablet by mouth every other day. - insulin lispro-aabc (LYUMJEV KWIKPEN) 100 unit/mL insulin pen Inject subcutaneously three times daily before meals. - Magnesium Oxide 500 mg tab Take 500 mg by mouth once daily. - sodium zirconium cyclosilicate (LOKELMA) 10 gram oral packet Take 1 Packet by mouth once daily. Mix powder in 45 mL of water, stir and drink immediately. - KERENDIA 10 mg tablet Take 10 mg by mouth once daily. - montelukast (SINGULAIR) 10 mg tablet Take 10 mg by mouth once daily. - sacubitril-valsartan (ENTRESTO) 97-103 mg tablet Take 1 tablet by mouth twice daily. - Cholecalciferol, Vitamin D3, 50 mcg (2,000 unit) cap Take 1 capsule by mouth once daily. - multivit,thx,calcium, iron,mins (MULTIVITAMIN AND MINERAL ORAL) Take by mouth once daily. - CALCIUM-VITAMIN D3 ORAL Take by mouth. - aspirin 81 mg chewable tablet Take 81 mg by mouth once daily. - Vitamin E, dl, acetate, 1,000 unit capsule Take 1,000 Units by mouth once daily. - insulin glargine,hum.rec.anlo g (LANTUS SOLOSTAR U-100 INSULIN SUBCUTANEOUS) Inject subcutaneously. 34 units daily - carvedilol (COREG) 25 mg tablet Take 25 mg by mouth twice daily with meals. - Biotin 10,000 mcg cap Take by mouth once daily. Problem List As Of Date 11/21/2023 Noted Resolved CKD (chronic kidney disease) stage 4, GFR 15-29*11/12/2019 Essential hypertension [I10] 11/12/2019 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 chronic k*11/12/2019 Other hyperlipidemia [E78.49] 11/12/2019 Chronic combined systolic and diastolic congest*11/12/2019 Encounter Status:[facility] (MIDMAV) VARSHA NIEVES ([id number]) 1945 F Date Time Provider Department 11/15/23 TIERA SPANGLER [facility] During your visit today, we recorded the following information about you: Brigitte Quinones OCCA 11/15/2023 11:53 AM Signed Contacted patient to advise her of the message below from Tiera Spangler GERIATRIC SOCIAL WORKER [facility]. She agreed with plan as stated below and will mostly likely get it done today. Please remind patient she is due for nonfasting labs at [facility]. I sent order last week. EFE Mckeon Allergies As of Date: 11/15/2023 Noted Allergy Reaction ACETAMINOPHEN-CODEINE 11/27/1999 14 - Other: See Comments BENZONATATE 11/27/1999 11 - Vomiting CEPHALEXIN 11/27/1999 2 - Rash CIPROFLOXACIN 11/12/2019 14 - Other: See Comments CLINDAMYCIN 11/12/2019 14 - Other: See Comments PENICILLINS 11/07/2014 14 - Other: See Comments Date Reviewed: 11/01/2023 Reviewed by: Irina Allen, LLOYD - Fully Assessed Reason for Visit: Patient Update [1234] Prescriptions as of 11/15/2023 - torsemide (DEMADEX) 20 mg tablet Take 1 tablet by mouth every other day. - insulin lispro-aabc (LYUMJEV KWIKPEN) 100 unit/mL insulin pen Inject subcutaneously three times daily before meals. - Magnesium Oxide 500 mg tab Take 500 mg by mouth once daily. - sodium zirconium cyclosilicate (LOKELMA) 10 gram oral packet Take 1 Packet by mouth once daily. Mix powder in 45 mL of water, stir and drink immediately. - KERENDIA 10 mg tablet Take 10 mg by mouth once daily. - montelukast (SINGULAIR) 10 mg tablet Take 10 mg by mouth once daily. - sacubitril-valsartan (ENTRESTO) 97-103 mg tablet Take 1 tablet by mouth twice daily. - Cholecalciferol, Vitamin D3, 50 mcg (2,000 unit) cap Take 1 capsule by mouth once daily. - multivit,thx,calcium, iron,mins (MULTIVITAMIN AND MINERAL ORAL) Take by mouth once daily. - CALCIUM-VITAMIN D3 ORAL Take by mouth. - aspirin 81 mg chewable tablet Take 81 mg by mouth once daily. - Vitamin E, dl, acetate, 1,000 unit capsule Take 1,000 Units by mouth once daily. - insulin glargine,hum.rec.anlo g (LANTUS SOLOSTAR U-100 INSULIN SUBCUTANEOUS) Inject subcutaneously. 34 units daily - carvedilol (COREG) 25 mg tablet Take 25 mg by mouth twice daily with meals. - Biotin 10,000 mcg cap Take by mouth once daily. Problem List As Of Date 11/15/2023 Noted Resolved CKD (chronic kidney disease) stage 4, GFR 15-29*11/12/2019 Essential hypertension [I10] 11/12/2019 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 chronic k*11/12/2019 Other hyperlipidemia [E78.49] 11/12/2019 Chronic combined systolic and diastolic congest*11/12/2019 Encounter Status:Closed by BRIGITTE QUINONES [facility] ([id number]) 1945 F Date Time Provider Department 11/15/23 TIERA SPANGLER During your visit today, we recorded the following information about you: Liban Renee RN 11/15/2023 3:01 PM Signed The [facility] is calling. The pt's BUN from the pt's lab draw was 124. They are faxing the entire panel results to [facility] fax number [phone] for your review. Tiera Spangler APRN.DORINA 11/15/2023 3:58 PM Signed Called pt Her BUN has been high for a few weeks She was previously on steroids Torsemide is 20mg every other day She feels good No symptoms of anything No swelling, SOB. No decreased appetite, no n/v. She did dose torsemide today Stop torsemide Call me for any ankle swelling or SOB She will also communicate this to PCP WIll do follow up labs 11/21 BP 118/57 Tiera Spangler APRN.SERVICE AND REPAIR SUPERVISOR Allergies As of Date: 11/15/2023 Noted Allergy Reaction ACETAMINOPHEN-CODEINE 11/27/1999 14 - Other: See Comments BENZONATATE 11/27/1999 11 - Vomiting CEPHALEXIN 11/27/1999 2 - Rash CIPROFLOXACIN 11/12/2019 14 - Other: See Comments CLINDAMYCIN 11/12/2019 14 - Other: See Comments PENICILLINS 11/07/2014 14 - Other: See Comments Date Reviewed: 11/01/2023 Reviewed by: Irina Allen, LLOYD - Fully Assessed Reason for Visit: BUN results from today. [Other] Prescriptions as of 11/17/2023 - torsemide (DEMADEX) 20 mg tablet Take 1 tablet by mouth every other day. - insulin lispro-aabc (LYUMJEV KWIKPEN) 100 unit/mL insulin pen Inject subcutaneously three times daily before meals. - Magnesium Oxide 500 mg tab Take 500 mg by mouth once daily. - sodium zirconium cyclosilicate (LOKELMA) 10 gram oral packet Take 1 Packet by mouth once daily. Mix powder in 45 mL of water, stir and drink immediately. - KERENDIA 10 mg tablet Take 10 mg by mouth once daily. - montelukast (SINGULAIR) 10 mg tablet Take 10 mg by mouth once daily. - sacubitril-valsartan (ENTRESTO) 97-103 mg tablet Take 1 tablet by mouth twice daily. - Cholecalciferol, Vitamin D3, 50 mcg (2,000 unit) cap Take 1 capsule by mouth once daily. - multivit,thx,calcium, iron,mins (MULTIVITAMIN AND MINERAL ORAL) Take by mouth once daily. - CALCIUM-VITAMIN D3 ORAL Take by mouth. - aspirin 81 mg chewable tablet Take 81 mg by mouth once daily. - Vitamin E, dl, acetate, 1,000 unit capsule Take 1,000 Units by mouth once daily. - insulin glargine,hum.rec.anlo g (LANTUS SOLOSTAR U-100 INSULIN SUBCUTANEOUS) Inject subcutaneously. 34 units daily - carvedilol (COREG) 25 mg tablet Take 25 mg by mouth twice daily with meals. - Biotin 10,000 mcg cap Take by mouth once daily. Problem List As Of Date 11/15/2023 Noted Resolved CKD (chronic kidney disease) stage 4, GFR 15-29*11/12/2019 Essential hypertension [I10] 11/12/2019 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 chronic k*11/12/2019 Other hyperlipidemia [E78.49] 11/12/2019 Chronic combined systolic and diastolic congest*11/12/2019 Encounter Status:Closed by LIBAN RENEE RN on 11/17/23 [facility] 11-09-2023 [facility] Telephone (MIDKYV) VARSHA NIEVES ([id number]) 1945 F Date Time Provider Department 11/09/23 TIERA SPANGLER [facility] During your visit today, we recorded the following information about you: Viola Saldivar 11/09/2023 9:12 AM Signed [facility] is requesting a signed order showing diagnosis for the Renal Function Panel lab that you ordered for her. The paper that the patient brought in to them doesn't have any diagnosis codes. Please fax over to: [phone] Patient is currently at the hospital to have this done . Patient has been identified by name and birthdate. Duration of symptoms: N/A Person calling: self Call patient at: on cell [phone] (home) Was an appointment scheduled: No Closing statement: Results or non-symptom based questions: Thank you for calling [facility], your call will be returned within the next business day. Tiera Ashton APRN.CNP 11/09/2023 11:42 AM Signed Order faxed Tiera Spangler APRN.SERVICE AND REPAIR SUPERVISOR Allergies As of Date: 11/09/2023 Noted Allergy Reaction ACETAMINOPHEN-CODEINE 11/27/1999 14 - Other: See Comments BENZONATATE 11/27/1999 11 - Vomiting CEPHALEXIN 11/27/1999 2 - Rash CIPROFLOXACIN 11/12/2019 14 - Other: See Comments CLINDAMYCIN 11/12/2019 14 - Other: See Comments PENICILLINS 11/07/2014 14 - Other: See Comments Date Reviewed: 11/01/2023 Reviewed by: Irina Allen RN - Fully Assessed Reason for Visit: Orders [681] Prescriptions as of 11/09/2023 - torsemide (DEMADEX) 20 mg tablet Take 1 tablet by mouth every other day. - insulin lispro-aabc (LYUMJEV KWIKPEN) 100 unit/mL insulin pen Inject subcutaneously three times daily before meals. - Magnesium Oxide 500 mg tab Take 500 mg by mouth once daily. - sodium zirconium cyclosilicate (LOKELMA) 10 gram oral packet Take 1 Packet by mouth once daily. Mix powder in 45 mL of water, stir and drink immediately. - KERENDIA 10 mg tablet Take 10 mg by mouth once daily. - montelukast (SINGULAIR) 10 mg tablet Take 10 mg by mouth once daily. - sacubitril-valsartan (ENTRESTO) 97-103 mg tablet Take 1 tablet by mouth twice daily. - Cholecalciferol, Vitamin D3, 50 mcg (2,000 unit) cap Take 1 capsule by mouth once daily. - multivit,thx,calcium, iron,mins (MULTIVITAMIN AND MINERAL ORAL) Take by mouth once daily. - CALCIUM-VITAMIN D3 ORAL Take by mouth. - aspirin 81 mg chewable tablet Take 81 mg by mouth once daily. - Vitamin E, dl, acetate, 1,000 unit capsule Take 1,000 Units by mouth once daily. - insulin glargine,hum.rec.anlo g (LANTUS SOLOSTAR U-100 INSULIN SUBCUTANEOUS) Inject subcutaneously. 34 units daily - carvedilol (COREG) 25 mg tablet Take 25 mg by mouth twice daily with meals. - Biotin 10,000 mcg cap Take by mouth once daily. Problem List As Of Date 11/09/2023 Noted Resolved CKD (chronic kidney disease) stage 4, GFR 15-29*11/12/2019 Essential hypertension [I10] 11/12/2019 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 chronic k*11/12/2019 Other hyperlipidemia [E78.49] 11/12/2019 Chronic combined systolic and diastolic congest*11/12/2019 Encounter Status:Closed by TIERA SPANGLER on 11/09/23 Normal [facility] OCTAV[place] Telephone ([facility]) VARSHA NIEVES ([id number]) 1945 F Date Time Provider Department 11/09/23 TIERA SPANGLER [facility] During your visit today, we recorded the following information about you: Brigitte Quinones OCCA 11/09/2023 1:33 PM Signed Faxed lab order for renal function panel to [facility] at [phone] per Tiera Spangler [employer] WORK[employer] [facility]. Please fax order for renal panel to [phone] EFE Mckeon Allergies As of Date: 11/09/2023 Noted Allergy Reaction ACETAMINOPHEN-CODEINE 11/27/1999 14 - Other: See Comments BENZONATATE 11/27/1999 11 - Vomiting CEPHALEXIN 11/27/1999 2 - Rash CIPROFLOXACIN 11/12/2019 14 - Other: See Comments CLINDAMYCIN 11/12/2019 14 - Other: See Comments PENICILLINS 11/07/2014 14 - Other: See Comments Date Reviewed: 11/01/2023 Reviewed by: Irina Allen RN - Fully Assessed Prescriptions as of 11/09/2023 - torsemide (DEMADEX) 20 mg tablet Take 1 tablet by mouth every other day. - insulin lispro-aabc (LYUMJEV KWIKPEN) 100 unit/mL insulin pen Inject subcutaneously three times daily before meals. - Magnesium Oxide 500 mg tab Take 500 mg by mouth once daily. - sodium zirconium cyclosilicate (LOKELMA) 10 gram oral packet Take 1 Packet by mouth once daily. Mix powder in 45 mL of water, stir and drink immediately. - KERENDIA 10 mg tablet Take 10 mg by mouth once daily. - montelukast (SINGULAIR) 10 mg tablet Take 10 mg by mouth once daily. - sacubitril-valsartan (ENTRESTO) 97-103 mg tablet Take 1 tablet by mouth twice daily. - Cholecalciferol, Vitamin D3, 50 mcg (2,000 unit) cap Take 1 capsule by mouth once daily. - multivit,thx,calcium, iron,mins (MULTIVITAMIN AND MINERAL ORAL) Take by mouth once daily. - CALCIUM-VITAMIN D3 ORAL Take by mouth. - aspirin 81 mg chewable tablet Take 81 mg by mouth once daily. - Vitamin E, dl, acetate, 1,000 unit capsule Take 1,000 Units by mouth once daily. - insulin glargine,hum.rec.anlo g (LANTUS SOLOSTAR U-100 INSULIN SUBCUTANEOUS) Inject subcutaneously. 34 units daily - carvedilol (COREG) 25 mg tablet Take 25 mg by mouth twice daily with meals. - Biotin 10,000 mcg cap Take by mouth once daily. Problem List As Of Date 11/09/2023 Noted Resolved CKD (chronic kidney disease) stage 4, GFR 15-29*11/12/2019 Essential hypertension [I10] 11/12/2019 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 chronic k*11/12/2019 Other hyperlipidemia [E78.49] 11/12/2019 Chronic combined systolic and diastolic congest*11/12/2019 Encounter Status:Closed by BRIGITTE QUINONES on 11/09/23 [facility] Thalia 11-06-2023 [place] Telephone ([facility]) VARSHA NIEVES ([id number]) 1945 F Date Time Provider Department 11/06/23 TIERA SPANGLER During your visit today, we recorded the following information about you: Candace Veliz 11/06/2023 4:25 PM Signed Took a call from Erika who works at [facility]. Erika was calling with some critical lab values for Tiera Spangler. Took the following message over phone: Critical BUN of 117. Patient in question was verified using full name and date of . Candace Veliz November 06, 2023 4:24 PM Tiera Spangler APRN.CNP 11/07/2023 3:30 PM Signed Called pt to review labs I have not received full results yet but critical results states BUN 117 No answer LMTCARABELLA Rubio Jennifer L, APRN.CNP 11/08/2023 11:33 AM Signed Called pt to review labs No answer LMTCB re: below ARABELLA Larson Tina, LLOYD 11/08/2023 12:05 PM Signed The pt called back and the below message was provided. What does she need to do now? You may call her back at the number listed. If it rolls to voice mail you may leave a detailed message with advice/instructions. Thank you. Tiera Spangler APRN.CNP 11/08/2023 1:47 PM Signed Returned call to pt Pt continues to be ill. Has been sick with resp illness x 1 month She is now on prednisone She is hydrating well because she is coughing so much Home BPS 127/57 132/50 No swelling. Weight is fluctuating 190-195 lbs Cardiology is her PCP I decreased her torsemide to 20mg every day. Decrease torsemide to 20mg every other day Labs again in 1 week, nonfasting ARABELLA Larson Jennifer L, APRN.CNP 11/08/2023 2:43 PM Signed Received outside labs 11/06/23 Na 141 K 4.7 Cl 104 CO2 29.8 Wilde 11 Gluc 237 BUN 117 Scr 2.42 Ca 9.1 PO4 4.7 Alb 3.5 Will repeat next week as noted after decrease in torsemide to 20mg every other day ARABELLA Larson Jennifer L, APRN.CNP 11/08/2023 2:43 PM Signed Addended by: TIERA SPANGLER on: 11/08/2023 02:43 PM Modules accepted: Orders Allergies As of Date: 11/06/2023 Noted Allergy Reaction ACETAMINOPHEN-CODEINE 11/27/1999 14 - Other: See Comments BENZONATATE 11/27/1999 11 - Vomiting CEPHALEXIN 11/27/1999 2 - Rash CIPROFLOXACIN 11/12/2019 14 - Other: See Comments CLINDAMYCIN 11/12/2019 14 - Other: See Comments PENICILLINS 11/07/2014 14 - Other: See Comments Date Reviewed: 11/01/2023 Reviewed by: Irina Allen RN - Fully Assessed Reason for Visit: Results [95] Order(s):torsemide (DEMADEX) 20 mg tabletTake 1 tablet by mouth every other day.Disp: Rfl: Prescriptions as of 11/08/2023 - torsemide (DEMADEX) 20 mg tablet Take 1 tablet by mouth every other day. - insulin lispro-aabc (MARISOL SHAHID) 100 unit/mL insulin pen Inject subcutaneously three times daily before meals. - Magnesium Oxide 500 mg tab Take 500 mg by mouth once daily. - sodium zirconium cyclosilicate (LOKELMA) 10 gram oral packet Take 1 Packet by mouth once daily. Mix powder in 45 mL of water, stir and drink immediately. - KERENDIA 10 mg tablet Take 10 mg by mouth once daily. - montelukast (SINGULAIR) 10 mg tablet Take 10 mg by mouth once daily. - sacubitril-valsartan (ENTRESTO) 97-103 mg tablet Take 1 tablet by mouth twice daily. - Cholecalciferol, Vitamin D3, 50 mcg (2,000 unit) cap Take 1 capsule by mouth once daily. - multivit,thx,calcium, iron,mins (MULTIVITAMIN AND MINERAL ORAL) Take by mouth once daily. - CALCIUM-VITAMIN D3 ORAL Take by mouth. - aspirin 81 mg chewable tablet Take 81 mg by mouth once daily. - Vitamin E, dl, acetate, 1,000 unit capsule Take 1,000 Units by mouth once daily. - insulin glargine,hum.rec.anlo g (LANTUS SOLOSTAR U-100 INSULIN SUBCUTANEOUS) Inject subcutaneously. 34 units daily - carvedilol (COREG) 25 mg tablet Take 25 mg by mouth twice daily with meals. - Biotin 10,000 mcg cap Take by mouth once daily. Problem List As Of Date 11/06/2023 Noted Resolved CKD (chronic kidney disease) stage 4, GFR 15-29*11/12/2019 Essential hypertension [I10] 11/12/2019 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 chronic k*11/12/2019 Other hyperlipidemia [E78.49] 11/12/2019 Chronic combined systolic and diastolic congest*11/12/2019 Prescriptions ordered this encounter Disp Refills Start End TORSEMIDE 20 MG TABLET 11/08/2023 Class: Med Update Route: ORAL Sig: Take 1 tablet by mouth every other day. Medications Discontinued During This Encounter Prescriptions - torsemide (DEMADEX) 20 mg tablet (Discontinued) Take 1 tablet by mouth once daily. Encounter Status:[facility] [place] [facility] VARSHA NIEVES ([id number]) 1945 F Date Time Provider Department 10/24/23 TIERA SPANGLER MIDKYV During your visit today, we recorded the following information about you: Tiera Spangler APRN.CNP 10/24/2023 11:48 AM Signed Called pt to see if she completed repeat labs She did not She states she didn't receive order She has been ill for 1 week I asked she repeat labs next week once she is feeling better Will have order faxed again to [facility] and mailed to patient Tiera Spangler APRN.DORINA Akshat Schaeffer 10/24/2023 12:17 PM Signed The requested document has been faxed to [phone]. Received a fax confirmation of OK on 10-24-23. The order has also been placed in the outgoing mail as well. Akshat Schaeffer Please mail order to patient and fax to [facility] as well. [phone] Renal panel Irina Allen RN 11/01/2023 2:43 PM Signed Pt calling She had delayed her labs for your office last week because she was not feeling well She still is not feeling well and has a lot of coughing.. so hard at times my bladder lets go. and the (white) mucous she has is so thick she gags and vomits because of it Pt said she saw her PCP last week, but she said he did not prescribe her any medication and she's been taking OTC cough medicine on her own (I encouraged pt to return to her PCP to be reassessed for continued / worsening symptoms... she is planning to call him tomorrow she said) Today, pt is asking NEPH Should she continue to delay her labs, or just go ahead and get them done? Can you prescribe something that might help with the urine leakage she's having with the excessive coughing? Please get back to her on [phone] Pt has an answering machine Akshat Schaeffer 11/01/2023 3:15 PM Signed I called and spoke with Varsha. I informed her of the below message from Tiera Spangler. Varsha agreed with plan as stated below. Aksaht Schaeffer Please have her delay her labs until Monday I cannot give her anything for the urination as it is from the coughing Not an anatomical issue Allergies As of Date: 10/24/2023 Noted Allergy Reaction ACETAMINOPHEN-CODEINE 11/27/1999 14 - Other: See Comments BENZONATATE 11/27/1999 11 - Vomiting CEPHALEXIN 11/27/1999 2 - Rash CIPROFLOXACIN 11/12/2019 14 - Other: See Comments CLINDAMYCIN 11/12/2019 14 - Other: See Comments PENICILLINS 11/07/2014 14 - Other: See Comments Date Reviewed: 06/13/2023 Reviewed by: Leeanne Torres MA - Fully Assessed Reason for Visit: Orders [681] Prescriptions as of 11/01/2023 - torsemide (DEMADEX) 20 mg tablet Take 1 tablet by mouth once daily. - insulin lispro-aabc (LYUMJEV KWIKPEN) 100 unit/mL insulin pen Inject subcutaneously three times daily before meals. - Magnesium Oxide 500 mg tab Take 500 mg by mouth once daily. - sodium zirconium cyclosilicate (LOKELMA) 10 gram oral packet Take 1 Packet by mouth once daily. Mix powder in 45 mL of water, stir and drink immediately. - KERENDIA 10 mg tablet Take 10 mg by mouth once daily. - montelukast (SINGULAIR) 10 mg tablet Take 10 mg by mouth once daily. - sacubitril-valsartan (ENTRESTO) 97-103 mg tablet Take 1 tablet by mouth twice daily. - Cholecalciferol, Vitamin D3, 50 mcg (2,000 unit) cap Take 1 capsule by mouth once daily. - multivit,thx,calcium, iron,mins (MULTIVITAMIN AND MINERAL ORAL) Take by mouth once daily. - CALCIUM-VITAMIN D3 ORAL Take by mouth. - aspirin 81 mg chewable tablet Take 81 mg by mouth once daily. - Vitamin E, dl, acetate, 1,000 unit capsule Take 1,000 Units by mouth once daily. - insulin glargine,hum.rec.anlo g (LANTUS SOLOSTAR U-100 INSULIN SUBCUTANEOUS) Inject subcutaneously. 34 units daily - carvedilol (COREG) 25 mg tablet Take 25 mg by mouth twice daily with meals. - Biotin 10,000 mcg cap Take by mouth once daily. Problem List As Of Date 10/24/2023 Noted Resolved CKD (chronic kidney disease) stage 4, GFR 15-29*11/12/2019 Essential hypertension [I10] 11/12/2019 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 chronic k*11/12/2019 Other hyperlipidemia [E78.49] 11/12/2019 Chronic combined systolic and diastolic congest*11/12/2019 Encounter Status:Closed by TIERA SPANGLER on 10/24/23 [facility] [place] 10-23-2023 [place] Telephone ([facility]) VARSHA NIEVES ([id number]) 1945 F Date Time Provider Department 10/23/23 TIERA SPANGLER During your visit today, we recorded the following information about you: Akshat Schaeffer 10/23/2023 10:01 AM Signed ----- Message from Tiera Spangler APRN.SERVICE AND REPAIR SUPERVISOR sent at 10/23/2023 8:57 AM EST ----- Please call [facility] and have repeat BUN and creatinine faxed over Tiera Spangler APRN.Akshat Woodruff 10/24/2023 10:15 AM Addendum I called the Medical Records department at [facility]. My call went to voicemail. I did not leave a message. I will try to call back @ [phone], Medical Records press 2, then 1. Akshat Moreno 10/24/2023 10:16 AM Signed I called but did not speak with nor leave a voicemail as it is the same as below. Akshat Moreno 10/24/2023 11:28 AM Signed I called and spoke with the staff at [facility] lab. I informed the staff of the below request and gave the fax number of [phone]. The lab staff told me that they have the lab results from 10/10 and they will fax them over shortly. Akshat Schaeffer Allergies As of Date: 10/23/2023 Noted Allergy Reaction ACETAMINOPHEN-CODEINE 11/27/1999 14 - Other: See Comments BENZONATATE 11/27/1999 11 - Vomiting CEPHALEXIN 11/27/1999 2 - Rash CIPROFLOXACIN 11/12/2019 14 - Other: See Comments CLINDAMYCIN 11/12/2019 14 - Other: See Comments PENICILLINS 11/07/2014 14 - Other: See Comments Date Reviewed: 06/13/2023 Reviewed by: Leeanne Torres MA - Fully Assessed Reason for Visit: Results [95] Prescriptions as of 10/24/2023 - torsemide (DEMADEX) 20 mg tablet Take 1 tablet by mouth once daily. - insulin lispro-aabc (LYUMJEV KWIKPEN) 100 unit/mL insulin pen Inject subcutaneously three times daily before meals. - Magnesium Oxide 500 mg tab Take 500 mg by mouth once daily. - sodium zirconium cyclosilicate (LOKELMA) 10 gram oral packet Take 1 Packet by mouth once daily. Mix powder in 45 mL of water, stir and drink immediately. - KERENDIA 10 mg tablet Take 10 mg by mouth once daily. - montelukast (SINGULAIR) 10 mg tablet Take 10 mg by mouth once daily. - sacubitril-valsartan (ENTRESTO) 97-103 mg tablet Take 1 tablet by mouth twice daily. - Cholecalciferol, Vitamin D3, 50 mcg (2,000 unit) cap Take 1 capsule by mouth once daily. - multivit,thx,calcium, iron,mins (MULTIVITAMIN AND MINERAL ORAL) Take by mouth once daily. - CALCIUM-VITAMIN D3 ORAL Take by mouth. - aspirin 81 mg chewable tablet Take 81 mg by mouth once daily. - Vitamin E, dl, acetate, 1,000 unit capsule Take 1,000 Units by mouth once daily. - insulin glargine,hum.rec.anlo g (LANTUS SOLOSTAR U-100 INSULIN SUBCUTANEOUS) Inject subcutaneously. 34 units daily - carvedilol (COREG) 25 mg tablet Take 25 mg by mouth twice daily with meals. - Biotin 10,000 mcg cap Take by mouth once daily. Problem List As Of Date 10/23/2023 Noted Resolved CKD (chronic kidney disease) stage 4, GFR 15-29*11/12/2019 Essential hypertension [I10] 11/12/2019 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 chronic k*11/12/2019 Other hyperlipidemia [E78.49] 11/12/2019 Chronic combined systolic and diastolic congest*11/12/2019 Encounter Status:Closed by AKSHAT SCHAEFFER on 10/23/23 [facility] [place] 10-10-2023 [place] Telephone ([facility]) VARSHA NIEVES ([id number]) 1945 F Date Time Provider Department 10/10/23 TIERA SPANGLER During your visit today, we recorded the following information about you: Liban Zuñiga RN 10/10/2023 2:48 PM Signed Patient?s identity has been confirmed by name and birthdate: Yes Call received from Lela at [facility] to report a critical value for BUN with a result of 124. Tiera Spangler APRN CNP was notified of the result at 2:46PM. LLOYD Roldan Jennifer L, APRN.CNP 10/10/2023 3:08 PM Signed Called pt to review labs Results not fully available to me from outside lab Would like to review BUN 124 Any med changes? How is BP? No answer, LMTCB Tiera Spangler APRN.Lacie Coreas RN 10/11/2023 8:24 AM Signed Return call from patient She reports the following: B/p taken yesterday was quite low 93/42. She states that this is not a very typical reading for her. She denies any issues with dizziness, fainting, visual changes, blacking out. She had not taken a b/p reading yet today She denies any changes in medications. States her AM medications usually are - Entresto, Singulair, Torsemide, Vitamin E, Vitamin D, multiple vitamin and biotin. She believes that the Entresto might be impacting her b/p? Patient will be leaving to go to [place] at 9 AM today. Her brother is in the hospital. She will return home after 3pm. If calling back before 9, please call: [phone] (home); if after 9AM, please use patient's spouse's cell # [phone] (she doesn't have a cell) Tiera Spangler APRN.CNP 10/11/2023 9:49 AM Signed Called pt re: below She feels well 93/44 this morning 93/48 yesterday Next cardiology follow up is Nov 072022 Decrease torsemide to 20mg daily Repeat labs in 1 week-fax order to [phone] Call for any swelling, increased weight or SOB ARABELLA Larson Jennifer L, APRN.CNP 10/11/2023 9:50 AM Signed Addended by: TIERA SPANGLER on: 10/11/2023 09:50 AM Modules accepted: Akshat Weiss 10/31/2023 11:13 AM Signed I called and spoke with Varsha's Nestor. I informed him that I was calling at the request of Tiera Spangler in order to find out if Varsha had her labs done at [facility] as of yet. Nestor told me that Varsha has been sick with a cough/cold of some sort that started a few days before and is currently still sick. Nestor states that once Varsha is feeling better, she will get the labs done as ordered. Akshat Schaeffer Allergies As of Date: 10/10/2023 Noted Allergy Reaction ACETAMINOPHEN-CODEINE 11/27/1999 14 - Other: See Comments BENZONATATE 11/27/1999 11 - Vomiting CEPHALEXIN 11/27/1999 2 - Rash CIPROFLOXACIN 11/12/2019 14 - Other: See Comments CLINDAMYCIN 11/12/2019 14 - Other: See Comments PENICILLINS 11/07/2014 14 - Other: See Comments Date Reviewed: 06/13/2023 Reviewed by: Leeanne Torres MA - Fully Assessed Reason for Visit: Critical Results [8175] Order(s):torsemide (DEMADEX) 20 mg tabletTake 1 tablet by mouth once daily.Disp: 90 tabletRfl: 3 Prescriptions as of 10/31/2023 - torsemide (DEMADEX) 20 mg tablet Take 1 tablet by mouth once daily. - insulin lispro-aabc (MARISOL SHAHID) 100 unit/mL insulin pen Inject subcutaneously three times daily before meals. - Magnesium Oxide 500 mg tab Take 500 mg by mouth once daily. - sodium zirconium cyclosilicate (LOKELMA) 10 gram oral packet Take 1 Packet by mouth once daily. Mix powder in 45 mL of water, stir and drink immediately. - KERENDIA 10 mg tablet Take 10 mg by mouth once daily. - montelukast (SINGULAIR) 10 mg tablet Take 10 mg by mouth once daily. - sacubitril-valsartan (ENTRESTO) 97-103 mg tablet Take 1 tablet by mouth twice daily. - Cholecalciferol, Vitamin D3, 50 mcg (2,000 unit) cap Take 1 capsule by mouth once daily. - multivit,thx,calcium, iron,mins (MULTIVITAMIN AND MINERAL ORAL) Take by mouth once daily. - CALCIUM-VITAMIN D3 ORAL Take by mouth. - aspirin 81 mg chewable tablet Take 81 mg by mouth once daily. - Vitamin E, dl, acetate, 1,000 unit capsule Take 1,000 Units by mouth once daily. - insulin glargine,hum.rec.anlo g (LANTUS SOLOSTAR U-100 INSULIN SUBCUTANEOUS) Inject subcutaneously. 34 units daily - carvedilol (COREG) 25 mg tablet Take 25 mg by mouth twice daily with meals. - Biotin 10,000 mcg cap Take by mouth once daily. Problem List As Of Date 10/10/2023 Noted Resolved CKD (chronic kidney disease) stage 4, GFR 15-29*11/12/2019 Essential hypertension [I10] 11/12/2019 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 chronic k*11/12/2019 Other hyperlipidemia [E78.49] 11/12/2019 Chronic combined systolic and diastolic congest*11/12/2019 Prescriptions ordered this encounter Disp Refills Start End TORSEMIDE 20 MG TABLET 90 t* 3 10/11/2023 (more content not included)... Normal [facility] [facility] ([id number]) 1945 F Date Time Provider Department 10/09/23 TIERA SPANGLER INTLaura During your visit today, we recorded the following information about you: Elva Beckford 10/09/2023 3:48 PM Signed Varsha Nieves is calling Tiera Spangler APRN.SERVICE AND REPAIR SUPERVISOR today needs labs ordered and faxed over to [facility]. F: [phone] No chief complaint on file. Patient has been identified by name and birthdate. Duration of symptoms: N/A Person calling: self Call patient at: at home [phone] (home) [phone] (cell) Was an appointment scheduled: No Closing statement: Results or non-symptom based questions: Thank you for calling [facility], your call will be returned within the next business day. Akshat Kaufman 10/09/2023 4:10 PM Signed The requested document has been faxed to [phone] . Received a fax confirmation of OK on 10/09/23. Akshat Schaeffer Allergies As of Date: 10/09/2023 Noted Allergy Reaction ACETAMINOPHEN-CODEINE 11/27/1999 14 - Other: See Comments BENZONATATE 11/27/1999 11 - Vomiting CEPHALEXIN 11/27/1999 2 - Rash CIPROFLOXACIN 11/12/2019 14 - Other: See Comments CLINDAMYCIN 11/12/2019 14 - Other: See Comments PENICILLINS 11/07/2014 14 - Other: See Comments Date Reviewed: 06/13/2023 Reviewed by: Leeanne Torres MA - Fully Assessed Reason for Visit: Lab Orders [8104] Prescriptions as of 10/09/2023 - insulin lispro-aabc (LYUMJEV KWIKPEN) 100 unit/mL insulin pen Inject subcutaneously three times daily before meals. - torsemide (DEMADEX) 20 mg tablet TAKE TWO TABLETS BY MOUTH ONCE DAILY IN THE MORNING - Magnesium Oxide 500 mg tab Take 500 mg by mouth once daily. - sodium zirconium cyclosilicate (LOKELMA) 10 gram oral packet Take 1 Packet by mouth once daily. Mix powder in 45 mL of water, stir and drink immediately. - KERENDIA 10 mg tablet Take 10 mg by mouth once daily. - montelukast (SINGULAIR) 10 mg tablet Take 10 mg by mouth once daily. - sacubitril-valsartan (ENTRESTO) 97-103 mg tablet Take 1 tablet by mouth twice daily. - Cholecalciferol, Vitamin D3, 50 mcg (2,000 unit) cap Take 1 capsule by mouth once daily. - multivit,thx,calcium, iron,mins (MULTIVITAMIN AND MINERAL ORAL) Take by mouth once daily. - CALCIUM-VITAMIN D3 ORAL Take by mouth. - aspirin 81 mg chewable tablet Take 81 mg by mouth once daily. - Vitamin E, dl, acetate, 1,000 unit capsule Take 1,000 Units by mouth once daily. - insulin glargine,hum.rec.anlo g (LANTUS SOLOSTAR U-100 INSULIN SUBCUTANEOUS) Inject subcutaneously. 34 units daily - carvedilol (COREG) 25 mg tablet Take 25 mg by mouth twice daily with meals. - Biotin 10,000 mcg cap Take by mouth once daily. Problem List As Of Date 10/09/2023 Noted Resolved CKD (chronic kidney disease) stage 4, GFR 15-29*11/12/2019 Essential hypertension [I10] 11/12/2019 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 chronic k*11/12/2019 Other hyperlipidemia [E78.49] 11/12/2019 Chronic combined systolic and diastolic congest*11/12/2019 Encounter Status:Closed by AKSHAT SCHAEFFER on 10/09/23 [facility] Thalia 07-20-2023 DORINAN Telephone (INTMLN) VARSHA NIEVES ([id number]) 1945 F Date Time Provider Department 07/20/23 TIERA SPANGLER During your visit today, we recorded the following information about you: Namita Beckfordssa 07/20/2023 10:39 AM Signed Varsha Nieves is calling Tiera Spangler APRN.SERVICE AND REPAIR SUPERVISOR today stating that her PCP wants to increase her kerendia from 10mg to 20 mg. Needs an ok from Tiera. Please give a call back. No chief complaint on file. Patient has been identified by name and birthdate. Duration of symptoms: N/A Person calling: self Call patient at: at home [phone] (home) [phone] (cell) Was an appointment scheduled: No Closing statement: Results or non-symptom based questions: Thank you for calling [facility], your call will be returned within the next business day. Tiera Chase APRN.DORINA 07/20/2023 11:22 AM Signed That is fine Please send req for RFP in 1-2 weeks after starting increase Tiera Spangler APRN.Leeanne Herndon MA 07/21/2023 8:23 AM Signed Called and spoke with Varsha. Informed her of the below message from Tiera. She agreed with the plan as stated below. Lab req has been placed in the outgoing mail as of 07/21/23. CRISTELA Agustin Carissa, MA 08/09/2023 3:41 PM Addendum Received lab results from [facility]. Scanned and sent via secure email. Copies have been made and placed for scanning into pt's chart. Leeanne Torres MA Allergies As of Date: 07/20/2023 Noted Allergy Reaction ACETAMINOPHEN-CODEINE 11/27/1999 14 - Other: See Comments BENZONATATE 11/27/1999 11 - Vomiting CEPHALEXIN 11/27/1999 2 - Rash CIPROFLOXACIN 11/12/2019 14 - Other: See Comments CLINDAMYCIN 11/12/2019 14 - Other: See Comments PENICILLINS 11/07/2014 14 - Other: See Comments Date Reviewed: 06/13/2023 Reviewed by: Leeanne Torres MA - Fully Assessed Reason for Visit: Medication Question [5578] Prescriptions as of 08/09/2023 - insulin lispro-aabc (LYUMJEV KWIKPEN) 100 unit/mL insulin pen Inject subcutaneously three times daily before meals. - torsemide (DEMADEX) 20 mg tablet TAKE TWO TABLETS BY MOUTH ONCE DAILY IN THE MORNING - Magnesium Oxide 500 mg tab Take 500 mg by mouth once daily. - sodium zirconium cyclosilicate (LOKELMA) 10 gram oral packet Take 1 Packet by mouth once daily. Mix powder in 45 mL of water, stir and drink immediately. - KERENDIA 10 mg tablet Take 10 mg by mouth once daily. - montelukast (SINGULAIR) 10 mg tablet Take 10 mg by mouth once daily. - sacubitril-valsartan (ENTRESTO) 97-103 mg tablet Take 1 tablet by mouth twice daily. - Cholecalciferol, Vitamin D3, 50 mcg (2,000 unit) cap Take 1 capsule by mouth once daily. - multivit,thx,calcium, iron,mins (MULTIVITAMIN AND MINERAL ORAL) Take by mouth once daily. - CALCIUM-VITAMIN D3 ORAL Take by mouth. - aspirin 81 mg chewable tablet Take 81 mg by mouth once daily. - Vitamin E, dl, acetate, 1,000 unit capsule Take 1,000 Units by mouth once daily. - insulin glargine,hum.rec.anlo g (LANTUS SOLOSTAR U-100 INSULIN SUBCUTANEOUS) Inject subcutaneously. 34 units daily - carvedilol (COREG) 25 mg tablet Take 25 mg by mouth twice daily with meals. - Biotin 10,000 mcg cap Take by mouth once daily. Problem List As Of Date 07/20/2023 Noted Resolved CKD (chronic kidney disease) stage 4, GFR 15-29*11/12/2019 Essential hypertension [I10] 11/12/2019 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 chronic k*11/12/2019 Other hyperlipidemia [E78.49] 11/12/2019 Chronic combined systolic and diastolic congest*11/12/2019 Encounter Status:Closed by TIERA SPANGLER on 07/20/23 [facility] CNOVon 06-13-2023 CNOV Office Visit (MIDMAV ) VARSHA NIEVES ([id number]) 1945 F Date Time Provider Department 06/13/23 3:00 PM TIERA SPANGLER MIDKYV During your visit today, we recorded the following information about you: Pulse Blood pressure Weight Height 80/minute 130/83 88.5 kg 1.626 m Tiera Spangler, MELVA.SERVICE AND REPAIR SUPERVISOR 06/13/2023 3:15 PM Signed Pt is a 77 yo female here for follow up of CKD stage 4 in the setting of proteinuria (non-nephrotic range), DM and HTN. Last OV 12/2022. She remains on lokelma for high K. Last cardiology appt last week. She takes torsemide 20mg every day and was instructed to take 40mg every day for increasing weights or edema. She took 40mg yesterday and had increased urination and she doesn't want that daily. Swelling much better in the morning. And it was much better today. Wears compression hose at times. Baseline Scr 2 She reports last lab 03/2023-K was just a bit above 5 per pt Home Bps 105/59 119/56 138/64 103/56 114/47 147/66 130/49 124/57 PAST MEDICAL HISTORY Diagnosis Date Diabetes mellitus (HCC) 1977 HTN (hypertension) Uterine cancer (HCC) 1971 hysterectomy General: Negative for weight loss, night sweats, fever, and fatigue Head/Neck: Negative for metallic or bitter taste Cardiac: Negative for syncope, palpitations, lightheadedness, dizziness, and chest pain or pressure Vascular: Positive for edema; Pulmonary: Negative for dyspnea, and cough GastroIntestinal: Positive for diarrhea; Negative for nausea, loss of appetite, emesis, constipation, and abdominal pain Genito-Urinary: Negative for pink or red urine, pain with urination, groin pain, flank pain, and decreased urine Hematology: Negative for easy bruising Other: Negative for daytime somnolence Creatinine Date Value Ref Range Status 01/10/2023 2.00 (H) 0.58 - 0.96 mg/dL Final 05/03/2022 1.99 (H) 0.58 - 0.96 mg/dL Final 12/21/2021 2.02 (H) 0.58 - 0.96 mg/dL Final Potassium Date Value Ref Range Status 01/10/2023 4.9 3.7 - 5.1 mmol/L Final 05/03/2022 5.7 (H) 3.7 - 5.1 mmol/L Final 12/21/2021 5.4 (H) 3.7 - 5.1 mmol/L Final Exam BP 130/83 Pulse 80 Ht 162.6 cm (5' 4 ) Wt 88.5 kg (195 lb) BMI 33.47 kg/m? General: NAD, alert Skin: Color, texture and turgor normal. No rashes or lesions Oropharynx: Lips, mucosa and throat normal Neck: No carotid bruits, adenopathy. Supple. No JVD Lungs: CTA bilaterally Heart: RRR without murmur or rub Abdomen: Soft, nontender. BS X 4, No organomegaly. No bruit Extremities: No edema, no asterixis BP - standardized method Pulse 1 BP #1: 131/82 Pulse #1: 80 beats/min 2 BP #2 : 126/84 Pulse #2 : 82 beats/min 3 BP #3 : 132/84 Pulse #3 : 80 beats/min Average Average BP: 130/83 Average Pulse: 80 beats/min Orthostatic vitals Supine Sitting Standing Standing BP : 141/78 Standing pulse : 73 BP cuff location BP cuff location: Left upper arm BP cuff size BP cuff size: large adult Comments for BP values First BP (right) First BP (left) Impression/plan CKD stage 4-proteinuric, in the setting of HTN and DM-Scr baseline ~ 1.8-2.2-has been stable. Will have labs from 03/2023 faxed over (she doesn't want to do labs here). She is not using NSAIDs. HTN-well controlled on current regimen. Volume stable. Reviewed to take 40mg torsemide prn weight gain and edema otherwise take 20mg every day. Hyperkalemia-now on lokelma per cardiology-per pt last K stable as noted above. Have labs from 03/2023 faxed over. Vitamin D deficiency-on supplement 4000U D 3-follow labs DM-uncontrolled on last lab. She follows in [place], [place]. Continue endo follow up Plan Have labs faxed over from [facility] F/U 4 months Tiera Spangler APRN.SERVICE AND REPAIR SUPERVISOR Allergies As of Date: 06/13/2023 Noted Allergy Reaction ACETAMINOPHEN-CODEINE 11/27/1999 14 - Other: See Comments BENZONATATE 11/27/1999 11 - Vomiting CEPHALEXIN 11/27/1999 2 - Rash CIPROFLOXACIN 11/12/2019 14 - Other: See Comments CLINDAMYCIN 11/12/2019 14 - Other: See Comments PENICILLINS 11/07/2014 14 - Other: See Comments Date Reviewed: 06/13/2023 Reviewed by: Leeanne Torres MA - Fully Assessed Reason for Visit: Follow Up [171] Cmt: Ckd Primary Visit Diagnosis:Benign hypertension with chronic kidney disease, stage IV ([facility]) [I12.9, N18.4] Other Visit Diagnoses:CKD (chronic kidney disease) stage 4, GFR 15-29 ml/min ([facility]) [N18.4] Proteinuria, unspecified type [R80.9] Hyperkalemia [E87.5] 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, unspecified whether ad terminal makeup operator insulin use ([facility]) [E11.22, N18.4] Order(s):CBC [SQCBC] Order #: [id number] FUTURE RENAL FUNCTION PANEL [SQRFP] Order #: [id number] FUTURE ALBUMIN/CREAT RATIO RND UR [SQUACR] Order #: [id number] FUTURE PTH INTACT BLD [SQPTHI] Order #: [id number] FUTURE VITAMIN D 25 HYDROXY [SQVITD] Order #: [id number] FUTURE (more content not included)... Normal [facility] BNPon 04-26-2023 Natriuretic peptide B (Bld) [Mass/Vol] 775.0 pg/mL Normal <=1,800.0 [facility] Comment on above: Performed By: #### C BC #### [facility] [address] [place] [address] Dr. Elaina Garnett BUNon 04-26-2023 Urea nitrogen [Mass/Vol] 68.0 mg/dL Critically high 7.0-18.0 [facility] Comment on above: Performed By: #### R SPLUS #### [facility] [address] [address] [address] Elaina Garnett CBC AUTO DIFFon 04-26-2023 BASO # 0.1 103/ul Normal 0.0-0.1 [facility] Comment on above: Performed By: #### C BC #### [facility] [address] [place] [address] Dr. Elaina Garnett Basophils/100 WBC (Bld) 1.0 % Normal 0.2-2.0 [facility] Comment on above: Performed By: #### C BC #### [facility] [address] [place] [address] Dr. Elaina Garnett EO # 0.3 103/ul Normal 0.0-0.7 [facility] Comment on above: Performed By: #### C BC #### [facility] [address] [place] [address] Dr. Elaina Garnett Eosinophils/100 WBC (Bld) 2.8 % Normal 0.9-7.0 [facility] Comment on above: Performed By: #### C BC #### [facility] [address] [place] [address] Dr. Elaina Garnett Erythrocyte distribution width (RBC) [Ratio] 13.9 % Normal 11.0-15.0 [facility] Comment on above: Performed By: #### C BC #### [facility] [address] [place] [address] Dr. Elaina Garnett Hematocrit (Bld) [Volume fraction] 36.8 % Normal 36.0-48.0 [facility] Comment on above: Performed By: #### C BC #### [facility] [address] [place] [address] Dr. Elaina Garnett Hemoglobin (Bld) [Mass/Vol] 12.1 g/dL Normal 12.0-16.0 [facility] Comment on above: Performed By: #### C BC #### [facility] [address] [place] [address] Dr. Elaina Garnett IG # 0.03 10e3/ul Normal 0.00-0.03 [facility] Comment on above: Performed By: #### C BC #### [facility] [address] [place] [address] Dr. Elaina Garnett IG % 0.3 % Normal 0.0-0.5 [facility] Comment on above: Performed By: #### C BC #### [facility] [address] [place] [address] Dr. Elaina Garnett LYMPH # 2.5 103/ul Normal 1.2-3.8 [facility] Comment on above: Performed By: #### C BC #### [facility] [address] [address] [address] Elaina Garnett Lymphocytes/100 WBC (Bld) 27.7 % Normal 20.5-60.0 [facility] Comment on above: Performed By: #### C BC #### [facility] [address] [address] [address] Elaina Garnett MANUAL DIFF REQ NO Normal [facility] Comment on above: Performed By: #### C BC #### [facility] [address] [place] [address] Dr. Elaina Garnett MCH (RBC) [Entitic mass] 29.7 pg Normal 26.7-34.0 [facility] Comment on above: Performed By: #### C BC #### [facility] [address] [place] [address] Dr. Elaina Garnett MCHC (RBC) [Mass/Vol] 32.9 g/dL Normal 29.9-35.2 [facility] Comment on above: Performed By: #### C BC #### [facility] [address] [place] [address] Dr. Elaina Garnett MCV (RBC) [Entitic vol] 90.4 fL Normal 81.0-99.0 [facility] Comment on above: Performed By: #### C BC #### [facility] [address] [place] [address] Dr. Elaina Garnett MONO # 1.0 103/ul Critically high 0.3-0.8 [facility] Comment on above: Performed By: #### C BC #### [facility] [address] [place] [address] Dr. Elaina Garnett Monocytes/100 WBC (Bld) 10.7 % Normal 1.7-12.0 [facility] Comment on above: Performed By: #### C BC #### [facility] [address] [place] [address] Dr. Elaina Garnett NEUT # 5.1 103/ul Normal 1.4-6.5 [facility] Comment on above: Performed By: #### C BC #### [facility] [address] [address] [address] Elaina Garnett Neutrophils/100 WBC (Bld) 57.5 % Normal 43.0-75.0 [facility] Comment on above: Performed By: #### C BC #### [facility] [address] [address] [address] Elaina Garnett Platelet mean volume (Bld) [Entitic vol] 9.4 fL Critically low 9.5-13.5 [facility] Comment on above: Performed By: #### C BC #### [facility] [address] [address] [address] Elaina Garnett PLT 258 103/ul Normal 150-450 [facility] Comment on above: Performed By: #### C BC #### [facility] [address] [place] [address] Dr. Elaina Garnett RBC 4.07 106/ul Critically low 4.20-5.40 [facility] Comment on above: Performed By: #### C BC #### [facility] [address] [address] [address] Elaina Garnett WBC 8.9 103/ul Normal 4.0-11.0 [facility] Comment on above: Performed By: #### C BC #### [facility] [address] [place] [address] Dr. Elaina Garnett CREATININEon 04-26-2023 Creatinine [Mass/Vol] 1.69 mg/dL Critically high 0.55-1.02 [facility] Comment on above: Performed By: #### C BC #### [facility] [address] [place] [address] Dr. Elaina Garnett EGFR-AF PARAGUAYAN 35 mL/min/1.73m2 Critically low >=60 [facility] Comment on above: Performed By: #### C BC #### [facility] [address] [place] [address] Dr. Elaina Garnett EGFR-NON AF PARAGUAYAN 29 mL/min/1.73m2 Critically low >=60 [facility] Comment on above: Performed By: #### C BC #### [facility] [address] [address] [address] Elaina Garnett ELECTROLYTESon 04-26-2023 Anion gap [Moles/Vol] 13.2 mmol/L Normal [facility] Comment on above: Performed By: #### R SPLUS #### [facility] [address] [place] [address] Dr. Elaina Garnett Chloride [Moles/Vol] 106 mmol/L Normal 98-107 [facility] Comment on above: Performed By: #### R SPLUS #### [facility] [address] [place] [address] Dr. Elaina Garnett CO2 [Moles/Vol] 26.3 mmol/L Normal 21.0-32.0 [facility] Comment on above: Performed By: #### R SPLUS #### [facility] [address] [place] [address] Dr. Elaina Garnett Potassium [Moles/Vol] 5.5 mmol/L Critically high 3.5-5.1 [facility] Comment on above: Performed By: #### R SPLUS #### [facility] [address] [address] [address] Elaina Garnett Sodium [Moles/Vol] 140 mmol/L Normal 136-145 [facility] Comment on above: Performed By: #### R SPLUS #### [facility] [address] [place] [address] Dr. Elaina Garnett LIVER PROFILEon 04-26-2023 Albumin [Mass/Vol] 3.4 g/dL Normal 3.4-5.0 [facility] Comment on above: Performed By: #### R SPLUS #### [facility] [address] [place] [address] Dr. Elaina Garnett Albumin/Globulin [Mass ratio] 0.9 {ratio} Normal [facility] Comment on above: Performed By: #### R SPLUS #### [facility] [address] [place] [address] Dr. Elaina Garnett ALP [Catalytic activity/Vol] 91 U/L Normal 46-116 [facility] Comment on above: Performed By: #### R SPLUS #### [facility] [address] [address] [address] Elaina Garnett ALT [Catalytic activity/Vol] 18 U/L Normal 14-59 [facility] Comment on above: Performed By: #### R SPLUS #### [facility] [address] [place] [address] Dr. Elaina Garnett AST [Catalytic activity/Vol] 16 U/L Normal 15-37 [facility] Comment on above: Performed By: #### R SPLUS #### [facility] [address] [place] [address] Dr. Elaina Garnett BILI, CONJUGATED 0.1 mg/dL Normal 0.0-0.2 [facility] Comment on above: Performed By: #### R SPLUS #### [facility] [address] [place] [address] Dr. Elaina Garnett Bilirubin [Mass/Vol] 0.6 mg/dL Normal 0.2-1.0 [facility] Comment on above: Performed By: #### R SPLUS #### [facility] [address] [place] [address] Dr. Elaina Garnett Globulin (S) [Mass/Vol] 4.0 g/dL Normal [facility] Comment on above: Performed By: #### R SPLUS #### [facility] [address] [place] [address] Dr. Elaina Garnett Protein [Mass/Vol] 7.4 g/dL Normal 6.4-8.2 [facility] Comment on above: Performed By: #### R SPLUS #### [facility] [address] [place] [address] Dr. Elaina Garnett ER URINE PROFILEon 3 Bilirubin Ql (U) Negative Normal NEGATIVE [facility] Comment on above: Performed By: #### R SPLUS #### [facility] [address] [place] [address] Dr. Elaina Garnett Clarity (U) CLEAR Normal CLEAR [facility] Comment on above: Performed By: #### R SPLUS #### [facility] [address] [place] [address] Dr. Elaina Garnett Color (U) LT. YELLOW Normal YELLOW [facility] Comment on above: Performed By: #### R SPLUS #### [facility] [address] [place] [address] Dr. Elaina MEEHAN A micrscopic examination will be performed if indicated. Normal [facility] Comment on above: Performed By: #### R SPLUS #### [facility] [address] [place] [address] Dr. Elaina Garnett Glucose Ql (U) Negative Normal NEGATIVE [facility] Comment on above: Performed By: #### R SPLUS #### [facility] [address] [place] [address] Dr. Elaina Garnett Hemoglobin Ql (U) Negative Normal NEGATIVE [facility] Comment on above: Performed By: #### R SPLUS #### [facility] [address] [place] [address] Dr. Elaina Garnett Ketones Ql (U) TRACE Abnormal NEGATIVE [facility] Comment on above: Performed By: #### R SPLUS #### [facility] [address] [place] [address] Dr. Elaina Garnett LEUKOCYTES Negative Normal NEGATIVE [facility] Comment on above: Performed By: #### R SPLUS #### [facility] [address] [place] [address] Dr. Elaina Garnett Nitrite Ql (U) Negative Normal NEGATIVE [facility] Comment on above: Performed By: #### R SPLUS #### [facility] [address] [place] [address] Dr. Elaina Garnett pH (U) 5.0 [pH] Normal 5-9 [facility] Comment on above: Performed By: #### R SPLUS #### [facility] [address] [place] [address] Dr. Elaina Garnett Protein (U) [Mass/Vol] 100 mg/dL Abnormal NEGATIVE/ TRACE [facility] Comment on above: Performed By: #### R SPLUS #### [facility] [address] [place] [address] Dr. Elaina Garnett SPEC GRAVITY 1.020 Normal 1.005-<=1.025 [facility] Comment on above: Performed By: #### R SPLUS #### [facility] [address] [place] [address] Dr. Elaina Garnett UR MICRO IND NOT INDICATED Normal [facility] Comment on above: Performed By: #### R SPLUS #### [facility] [address] [place] [address] Dr. Elaina Garnett Urobilinogen Qn (U) 0.2 {Danny'U}/dL Normal 0.2 - 1. 0 [facility] Comment on above: Performed By: #### R SPLUS #### [facility] [address] [place] [address] Dr. Elaina Garnett RESPIRATORY PANEL PLUSon Adenovirus Not detected Normal NOT DETECTED [facility] Comment on above: Performed By: #### R SPLUS #### [facility] [address] [place] [address] Dr. Elaina Camargo. Parapertusis Not detected Normal NOT DETECTED [facility] Comment on above: Performed By: #### R SPLUS #### [facility] [address] [place] [address] Dr. Elaina Watson Pertussis Not detected Normal NOT DETECTED [facility] Comment on above: Performed By: #### R SPLUS #### [facility] [address] [place] [address] Dr. Elaina Garnett Chlamydia Pneumoniae Not detected Normal NOT DETECTED [facility] Comment on above: Performed By: #### R SPLUS #### [facility] [address] [place] [address] Dr. Elaina Garnett Coronavirus 229E Not detected Normal NOT DETECTED [facility] Comment on above: Performed By: #### R SPLUS #### [facility] [address] [place] [address] Dr. Elaina Garnett Coronavirus HKU1 Not detected Normal NOT DETECTED [facility] Comment on above: Performed By: #### R SPLUS #### [facility] [address] [place] [address] Dr. Elaina Garnett Coronavirus NL63 Not detected Normal NOT DETECTED [facility] Comment on above: Performed By: #### R SPLUS #### [facility] [address] [place] [address] Dr. Elaina Garnett Coronavirus OC43 Not detected Normal NOT DETECTED [facility] [facility] Comment on above: Performed By: #### R SPLUS #### [facility] [address] [place] [address] Dr. Elaina Garnett Influenza A H1 Not detected Normal NOT DETECTED [facility] Comment on above: Performed By: #### R SPLUS #### [facility] [address] [place] [address] Dr. Elaina Garnett Influenza A H1 2009 Not detected Normal NOT DETECTED [facility] Comment on above: Performed By: #### R SPLUS #### [facility] [address] [place] [address] Dr. Elaina Garnett Influenza A H3 Not detected Normal NOT DETECTED [facility] Comment on above: Performed By: #### R SPLUS #### [facility] [address] [place] [address] Dr. Elaina Garnett Influenza B Not detected Normal NOT DETECTED [facility] Comment on above: Performed By: #### R SPLUS #### [facility] [address] [place] [address] Dr. Elaina Garnett Metapneumovirus Not detected Normal NOT DETECTED [facility] Comment on above: Performed By: #### R SPLUS #### [facility] [address] [place] [address] Dr. Elaina Garnett Mycoplas. Pneumoniae Not detected Normal NOT DETECTED [facility] Comment on above: Performed By: #### R SPLUS #### [facility] [address] [place] [address] Dr. Elaina Garnett Parainfluenza 1 Not detected Normal NOT DETECTED [facility] Comment on above: Performed By: #### R SPLUS #### [facility] [address] [place] [address] Dr. Elaina Garnett Parainfluenza 2 Not detected Normal NOT DETECTED [facility] Comment on above: Performed By: #### R SPLUS #### [facility] [address] [place] [address] Dr. Elaina Garnett Parainfluenza 3 Not detected Normal NOT DETECTED [facility] Comment on above: Performed By: #### R SPLUS #### [facility] [address] [place] [address] Dr. Elaina Garnett Parainfluenza 4 Not detected Normal NOT DETECTED [facility] Comment on above: Performed By: #### R SPLUS #### [facility] [address] [place] [address] Dr. Elaina Garnett Rhino/Enterovirus Not detected Normal NOT DETECTED [facility] Comment on above: Performed By: #### R SPLUS #### [facility] [address] [place] [address] Dr. Elaina Garnett RP2 Header 1 RESPIRATORY PANEL: VIRUSES Normal [facility] Comment on above: Performed By: #### R SPLUS #### [facility] [address] [place] [address] Dr. Elaina Garnett RP2 Header 2 RESPIRATORY PANEL: BACTERIA Normal [facility] Comment on above: Performed By: #### R SPLUS #### [facility] [address] [place] [address] Dr. Elaina Garnett RSV Not detected Normal NOT DETECTED [facility] Comment on above: Performed By: #### R SPLUS #### [facility] [address] [place] [address] Dr. Elaina Garnett SARS-CoV-2 (COVID-19) RNA BARB+probe Ql (Unsp spec) Not detected Normal NOT DETECTED [facility] Comment on above: Performed By: #### R SPLUS #### [facility] [address] [place] [address] Dr. Elaina Garnett XR CHEST 1 Von 03-26-2023 XR CHEST 1 V EXAMINATION: XR CHES T 1 V, , 03/25/2023 10:27 PM EDT INDICATION: COUGH HISTORY: Ordering Provider Reason for Exam: Technologist Note: Additional: COMPARISON: Chest x-ray dated 11/04/2022. TECHNIQUE: Chest x-ray: One view. FINDINGS: No pneumothorax, pleural effusion or focal airspace consolidation. Heart is normal in size. Bony thorax is unremarkable. IMPRESSION: No acute cardiopulmonary process. Electronically authenticated by: JUAN GARRETT Date: 2023-03-25 23:48 Normal [facility] CARDIAC MIKE ADMITon 023 CK [Catalytic activity/Vol] 219 U/L Critically high 26-192 [facility] Comment on above: Performed By: #### C BC #### [facility] [address] [place] [address] Dr. Elaina Garnett CK.MB [Mass/Vol] 1.21 ng/mL Normal <=3.60 [facility] Comment on above: Performed By: #### C BC #### [facility] [address] [place] [address] Dr. Elaina Garnett HSTROP 17.4 pg/mL Normal 4.0-51.3 [facility] Comment on above: Result Comment: CUT- OFF POINTS HAVE BEEN ESTABLISHED BASED ON THE FOURTH UNIVERSAL DEFINITIONS OF MYOCARDIAL INFARCTION. THE UPPER REFERENCE LIMIT (URL) OF TROPONIN, DEFINED THE 99TH PERCENTILE OF cTnI DISTRIBUTION IN A REFERENCE POPULATION, HAS BEEN CONFIRMED THE DECISION THRESHOLD FOR [place] DIAGNOSIS. Performed By: #### C BC #### [facility] [address] [place] [address] Dr. Elaina Garnett TAO 332 ng/mL Critically high 9-82 [facility] Comment on above: Performed By: #### C BC #### [facility] [address] [address] [address] Elaina Garnett CBC AUTO DIFFon 03-25-2023 BASO # 0.1 103/ul Normal 0.0-0.1 [facility] Comment on above: Performed By: #### C BC #### [facility] [address] [address] [address] Elaina Garnett Basophils/100 WBC (Bld) 0.6 % Normal 0.2-2.0 [facility] Comment on above: Performed By: #### C BC #### [facility] [address] [place] [address] Dr. Elaina Garnett EO # 0.2 103/ul Normal 0.0-0.7 [facility] Comment on above: Performed By: #### C BC #### [facility] [address] [place] [address] Dr. Elaina Garnett Eosinophils/100 WBC (Bld) 2.0 % Normal 0.9-7.0 [facility] Comment on above: Performed By: #### C BC #### [facility] [address] [place] [address] Dr. Elaina Garnett Erythrocyte distribution width (RBC) [Ratio] 12.9 % Normal 11.0-15.0 [facility] Comment on above: Performed By: #### C BC #### [facility] [address] [place] [address] Dr. Elaina Garnett Hematocrit (Bld) [Volume fraction] 33.6 % Critically low 36.0-48.0 [facility] Comment on above: Performed By: #### C BC #### [facility] [address] [place] [address] Dr. Elaina Garnett Hemoglobin (Bld) [Mass/Vol] 11.3 g/dL Critically low 12.0-16.0 [facility] Comment on above: Performed By: #### C BC #### [facility] [address] [place] [address] Dr. Elaina Garnett IG # 0.04 10e3/ul Critically high 0.00-0.03 [facility] Comment on above: Performed By: #### C BC #### [facility] [address] [place] [address] Dr. Elaina Garnett IG % 0.4 % Normal 0.0-0.5 [facility] Comment on above: Performed By: #### C BC #### [facility] [address] [place] [address] Dr. Elaina Garnett LYMPH # 1.8 103/ul Normal 1.2-3.8 [facility] Comment on above: Performed By: #### C BC #### [facility] [address] [place] [address] Dr. Elaina Garnett Lymphocytes/100 WBC (Bld) 19.5 % Critically low 20.5-60.0 [facility] Comment on above: Performed By: #### C BC #### [facility] [address] [place] [address] Dr. Elaina Garnett MANUAL DIFF REQ NO Normal [facility] Comment on above: Performed By: #### C BC #### [facility] [address] [place] [address] Dr. Elaina Garnett MCH (RBC) [Entitic mass] 30.8 pg Normal 26.7-34.0 [facility] Comment on above: Performed By: #### C BC #### [facility] [address] [place] [address] Dr. Elaina Garnett MCHC (RBC) [Mass/Vol] 33.6 g/dL Normal 29.9-35.2 [facility] Comment on above: Performed By: #### C BC #### [facility] [address] [place] [address] Dr. Elaina Garnett MCV (RBC) [Entitic vol] 91.6 fL Normal 81.0-99.0 [facility] Comment on above: Performed By: #### C BC #### [facility] [address] [place] [address] Dr. Elaina Garnett MONO # 1.9 103/ul Critically high 0.3-0.8 [facility] Comment on above: Performed By: #### C BC #### [facility] [address] [place] [address] Dr. Elaina Garnett Monocytes/100 WBC (Bld) 19.7 % Critically high 1.7-12.0 [facility] Comment on above: Performed By: #### C BC #### [facility] [address] [place] [address] Dr. Elaina Garnett NEUT # 5.4 103/ul Normal 1.4-6.5 [facility] Comment on above: Performed By: #### C BC #### [facility] [address] [place] [address] Dr. Elaina Garnett Neutrophils/100 WBC (Bld) 57.8 % Normal 43.0-75.0 [facility] Comment on above: Performed By: #### C BC #### [facility] [address] [place] [address] Dr. Elaina Garnett Platelet mean volume (Bld) [Entitic vol] 9.7 fL Normal 9.5-13.5 [facility] Comment on above: Performed By: #### C BC #### [facility] [address] [address] [address] Elaina Garnett PLT 272 103/ul Normal 150-450 [facility] Comment on above: Performed By: #### C BC #### [facility] [address] [place] [address] Dr. Elaina Garnett RBC 3.67 106/ul Critically low 4.20-5.40 [facility] Comment on above: Performed By: #### C BC #### [facility] [address] [place] [address] Dr. Elaina Garnett WBC 9.4 103/ul Normal 4.0-11.0 [facility] Comment on above: Performed By: #### C BC #### [facility] [address] [place] [address] Dr. lEaina Garnett LACTATE/LACTIC ACIDon 2022 Lactate [Moles/Vol] 0.7 mmol/L Normal 0.4-2.0 [facility] Comment on above: Performed By: #### C BC #### [facility] [address] [place] [address] Dr. Elaina Garnett PROF CHEM 8 (BAS METB)on Anion gap [Moles/Vol] 13.5 mmol/L Normal [facility] Comment on above: Performed By: #### C BC #### [facility] [address] [place] [address] Dr. Elaina Garnett Calcium [Mass/Vol] 9.0 mg/dL Normal 8.5-10.1 [facility] Comment on above: Performed By: #### C BC #### [facility] [address] [place], [place] [id number] Dr. Elaina Garnett Chloride [Moles/Vol] 109 mmol/L Critically high 98-107 [facility] Comment on above: Performed By: #### C BC #### [facility] [address] [address] [address] Elaina Garnett CO2 [Moles/Vol] 21.9 mmol/L Normal 21.0-32.0 [facility] Comment on above: Performed By: #### C BC #### [facility] [address] [address] [address] Elaina Garnett Creatinine [Mass/Vol] 2.03 mg/dL Critically high 0.55-1.02 [facility] Comment on above: Performed By: #### C BC #### [facility] [address] [place] [address] Dr. Elaina Garnett EGFR-AF PARAGUAYAN 29 mL/min/1.73m2 Critically low >=60 [facility] Comment on above: Performed By: #### C BC #### [facility] [address] [place] [address] Dr. Elaina Garnett EGFR-NON AF PARAGUAYAN 24 mL/min/1.73m2 Critically low >=60 [facility] Comment on above: Performed By: #### C BC #### [facility] [address] [place] [address] Dr. Elaina Garnett Glucose [Mass/Vol] 72 mg/dL Critically low 74-106 [facility] Comment on above: Performed By: #### C BC #### [facility] [address] [address] [address] lEaina Garnett Potassium [Moles/Vol] 4.4 mmol/L Normal 3.5-5.1 [facility] Comment on above: Performed By: #### C BC #### [facility] [address] [address] [address] Elaina Garnett Sodium [Moles/Vol] 140 mmol/L Normal 136-145 [facility] Comment on above: Performed By: #### C BC #### [facility] [address] [address] [address] Elaina Garnett Urea nitrogen [Mass/Vol] 70.0 mg/dL Critically high 7.0-18.0 [facility] Comment on above: Performed By: #### C BC #### [facility] [address] [place] [address] Dr. Elaina Garnett Urea nitrogen/Creatinine [Mass ratio] 34.5 mg/mg Normal [facility] Comment on above: Performed By: #### C BC #### [facility] [address] [place] [address] Dr. Elaina Garnett 25(OH)D3 [facility] 2022 25-hydroxyvitamin D3 [Mass/Vol] 52.1 ng/mL Normal 31.0-80.0 [facility] Comment on above: Order Comment: Speci men Type: BLOOD SPECIMEN Ordering Facility: [facility] Address: [address] [place] [address] Result Comment: Clas sification of 25 [place] Vitamin D status: Deficiency/Insufficiency: < or = 30 ng/ml. Sufficiency/Optimal Levels: 31-80 ng/mL Toxicity: > 100 ng/mL. Test performed by chemiluminescent immunoassay. Performed By: #### 1 989-3 #### [facility] CLIA [id number] [address] [place] CBC panel Auto (Bld)on 01-10 Erythrocyte distribution width (RBC) [Ratio] 13.3 % Normal 11.5-15.0 [facility] Comment on above: Order Comment: Speci men Type: BLOOD SPECIMEN Ordering Facility: [facility] Address: [address] [address] Performed By: #### 5 8410-2 #### [facility] CLIA [id number] [address] [place] Hematocrit (Bld) [Volume fraction] 39.4 % Normal 36.0-46.0 [facility] Comment on above: Order Comment: Speci men Type: BLOOD SPECIMEN Ordering Facility: [facility] Address: [address] [address] Performed By: #### 5 8410-2 #### [facility] [place] [id number] [address] [place] Hemoglobin (Bld) [Mass/Vol] 12.5 g/dL Normal 11.5-15.5 [facility] Comment on above: Order Comment: Speci men Type: BLOOD SPECIMEN Ordering Facility: [facility] Address: [address] [address] Performed By: #### 5 8410-2 #### [facility] [place] [id number] [address] [place] MCH (RBC) [Entitic mass] 29.1 pg Normal 26.0-34.0 [facility] Comment on above: Order Comment: Speci men Type: BLOOD SPECIMEN Ordering Facility: [facility] Address: [address] [place] [address] Performed By: #### 5 8410-2 #### [facility] [place] [id number] [place] [address] [place] MCHC (RBC) [Mass/Vol] 31.7 g/dL Normal 30.5-36.0 [facility] Comment on above: Order Comment: Speci men Type: BLOOD SPECIMEN Ordering Facility: [facility] Address: [address] [place] [address] Performed By: #### 5 8410-2 #### [facility] [place] [id number] [place] [address] [place] MCV (RBC) [Entitic vol] 91.6 fL Normal 80.0-100.0 [facility] Comment on above: Order Comment: Speci men Type: BLOOD SPECIMEN Ordering Facility: [facility] Address: [address] [place] [address] Performed By: #### 5 8410-2 #### [facility] [place] [id number] [place] [address] [place] Nucleated RBC (Bld) [#/Vol] 10*3/uL Normal <0.01 [facility] Comment on above: Order Comment: Speci men Type: BLOOD SPECIMEN Ordering Facility: [facility] Address: [address] [address] Performed By: #### 5 8410-2 #### [facility] CLIA [id number] [address] [place] [address] [place] Platelet mean volume (Bld) [Entitic vol] 10.4 fL Normal 9.0-12.7 [facility] Comment on above: Order Comment: Speci men Type: BLOOD SPECIMEN Ordering Facility: [facility] Address: [address] [address] Performed By: #### 5 8410-2 #### [facility] CLIA [id number] [address] [place] [address] [place] Platelets (Bld) [#/Vol] 256 10*3/uL Normal 150-400 [facility] Comment on above: Order Comment: Speci men Type: BLOOD SPECIMEN Ordering Facility: [facility] Address: [address] [address] Performed By: #### 5 8410-2 #### [facility] CLIA [id number] [address] [place] [address] [place] RBC (Bld) [#/Vol] 4.30 10*6/uL Normal 3.90-5.20 [facility] Comment on above: Order Comment: Speci men Type: BLOOD SPECIMEN Ordering Facility: [facility] Address: [address] Performed By: #### 5 8410-2 #### [facility] CLIA [id number] [address] [place] [address] [place] WBC (Bld) [#/Vol] 7.54 10*3/uL Normal 3.70-11.00 [facility] Comment on above: Order Comment: Speci men Type: BLOOD SPECIMEN Ordering Facility: [facility] Address: [address] [address] Performed By: #### 5 8410-2 #### [facility] CLIA [id number] [place] [address] [place] [facility] Erythrocyte distribution width (RBC) [Ratio] 13.3 % 11.5 - 15.0 % [facility] Hematocrit (Bld) [Volume fraction] 39.4 % 36.0 - 46.0 % [facility] Hemoglobin (Bld) [Mass/Vol] 12.5 g/dL 11.5 - 15.5 g/dL [facility] MCH (RBC) [Entitic mass] 29.1 pg 26.0 - 34.0 pg [facility] MCHC (RBC) [Mass/Vol] 31.7 g/dL 30.5 - 36.0 g/dL [facility] MCV (RBC) [Entitic vol] 91.6 fL 80.0 - 100.0 fL [facility] Nucleated RBC (Bld) [#/Vol] <0.01 k/uL [facility] Platelet mean volume (Bld) [Entitic vol] 10.4 fL 9.0 - 12.7 fL [facility] Platelets (Bld) [#/Vol] 256 10*3/uL 150 - 400 k/uL [facility] RBC (Bld) [#/Vol] 4.30 10*6/uL 3.90 - 5.2 0 m/uL [facility] WBC (Bld) [#/Vol] 7.54 10*3/uL 3.70 - 11. 00 k/uL [facility] CNOVon 01-10-2023 CNOV Office Visit (MIDMAV ) VARSHA NIEVES ([id number]) 1945 F Date Time Provider Department 01/10/23 11:00 AM TIERA SPANGLER During your visit today, we recorded the following information about you: Pulse Blood pressure Weight Height 76/minute 130/81 86.6 kg 1.626 m Tiera Spangler APRN.SERVICE AND REPAIR SUPERVISOR 01/10/2023 11:31 AM Signed Pt is a 77 yo female here for follow up of CKD stage 4 in the setting of proteinuria (non-nephrotic range), DM and HTN. Last OV 04/2022. Kayexalate powder restarted after that visit. Cardiology has changed it to [id number]-[id number]-efd will run out. She has no new complaints Home BPs 150/74 125/68 111/41 94/48 159/60 117/54 136/55 134/50 136/63 122/61 PAST MEDICAL HISTORY Diagnosis Date Diabetes mellitus (HCC) 1977 HTN (hypertension) Uterine cancer (HCC) 1971 hysterectomy General: Negative for weight loss, night sweats, fever, and fatigue Head/Neck: Negative for metallic or bitter taste Cardiac: Negative for syncope, palpitations, lightheadedness, dizziness, and chest pain or pressure Vascular: Negative for edema Pulmonary: Negative for dyspnea, and cough GastroIntestinal: Negative for nausea, loss of appetite, emesis, diarrhea, constipation, and abdominal pain Genito-Urinary: Negative for pink or red urine, pain with urination, groin pain, flank pain, and decreased urine Hematology: Negative for easy bruising Other: Negative for daytime somnolence Creatinine Date Value Ref Range Status 05/03/2022 1.99 (H) 0.58 - 0.96 mg/dL Final 12/21/2021 2.02 (H) 0.58 - 0.96 mg/dL Final 12/06/2021 2.25 (H) 0.58 - 0.96 mg/dL Final Potassium Date Value Ref Range Status 05/03/2022 5.7 (H) 3.7 - 5.1 mmol/L Final 12/21/2021 5.4 (H) 3.7 - 5.1 mmol/L Final 12/06/2021 5.7 (H) 3.7 - 5.1 mmol/L Final Exam General: NAD, alert Skin: Color, texture and turgor normal. No rashes or lesions Oropharynx: Lips, mucosa and throat normal Neck: No carotid bruits, adenopathy. Supple. No JVD Lungs: CTA bilaterally Heart: RRR, + murmur Abdomen: Soft, nontender. BS X 4, No organomegaly. No bruit Extremities: No edema, no asterixis BP - standardized method Pulse 1 2 3 Average Average BP: 130/81 Average Pulse: 76 beats/min Orthostatic vitals Supine Sitting Standing Standing BP : 123/80 Standing pulse : 74 BP cuff location BP cuff location: Left upper arm BP cuff size BP cuff size: large adult Comments for BP values Comments for BP values: only one BP, machine pt movement error. pt seen not moving First BP (right) First BP (left) Impression/plan CKD stage 4-proteinuric, in the setting of HTN and DM-Scr baseline ~ 1.8-2.2-has been stable. Update-she is not using NSAIDs. Stable. HTN-well controlled at home as well as here-she sees cardiology [id number] and her BPs are controlled there. Hyperkalemia-now on lokelma per cardiology-has samples but will run out. Rx for 30 day free given with coupon. Will send to specialty pharmacy as well. Call cardiology to see if they can continue to sample it. Hx of diarrhea on veltassa. I had previously avoided lokelma given CHF hx but she is tolerating it. Vitamin D deficiency-on supplement 4000U D 3-update labs DM-uncontrolled on last lab. She follows in [place], [place]. Last A1C 8.5-continue endo follow up Heme-Hgb WNL Plan Labs Continue lokelma 10gm daily 30 day free coupon given to augment samples She will let me know if cardiology cannot sample-may need to go to specialty pharmacy F/U 4 months Tiera Spangler APRN.DORINA Spangler APRN.CNP 01/10/2023 11:34 AM Signed Addended by: TIERA SPANGLER on: 01/10/2023 11:34 AM Modules accepted: Orders Referring Provider: TIERA SPANGLER [[id number]] Allergies As of Date: 01/10/2023 Noted Allergy Reaction ACETAMINOPHEN-CODEINE 11/27/1999 14 - Other: See Comments BENZONATATE 11/27/1999 11 - Vomiting CEPHALEXIN 11/27/1999 2 - Rash CIPROFLOXACIN 11/12/2019 14 - Other: See Comments CLINDAMYCIN 11/12/2019 14 - Other: See Comments PENICILLINS 11/07/2014 14 - Other: See Comments Date Reviewed: 01/10/2023 Reviewed by: Leeanne Torres MA - Fully Assessed Reason for Visit: Follow Up [171] Cmt: Ckd Primary Visit Diagnosis:Benign hypertension with chronic kidney disease, stage IV ([facility]) [I12.9, N18.4] Other Visit Diagnoses:CKD (chronic kidney disease) stage 4, GFR 15-29 ml/min ([facility]) [N18.4] Proteinuria, unspecified type [R80.9] Hyperkalemia [E87.5] 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, unspecified whether ad terminal makeup operator insulin use ([facility]) [E11.22, N18.4] Vitamin D deficiency [E55.9] Order(s):CBC [SQCBC] Order #: [id number] FUTURE RENAL FUNCTION PANEL [SQRFP] Order #: [id number] FUTURE PTH INTACT BLD [SQPTHI] Order #: [id number] FUTURE VITAMIN D 25 HYDROXY [SQVITD] Order #: [id number] FUTURE CREATININE RANDOM UR [SQ (more content not included)... Normal [facility] Creatinine Unsp time (U) [Ma ss/Vol]on 01-10-2023 Creatinine (U) [Mass/Vol] 24.9 mg/dL Normal 20.0-300.0 [facility] Comment on above: Order Comment: Speci men Type: URINE SPECIMEN Ordering Facility: [facility] Address: [address] [place] [address] Performed By: #### 3 5674-1 #### [facility] CLIA [id number] [address] [place] [address] [place] PTH INTACT BLDon 01-10-2023 Parathyrin.intact [Mass/Vol] 65 pg/mL 15 - 65 pg/mL [facility] [facility] PTH-Intact SerPl-mCncon 12-28 Parathyrin.intact [Mass/Vol] 65 pg/mL Normal 15-65 [facility] Comment on above: Order Comment: Nestori men Type: BLOOD SPECIMEN Ordering Facility: [facility] Address: [address] [place], [place] [id number] Performed By: #### 2 731-8 #### [facility] CLIA [id number] [address] [place] [address] [place] Prot Ur-mCncon 01-10-2023 Protein (U) [Mass/Vol] 8 mg/dL Normal 0-20 [facility] Comment on above: Order Comment: Speci men Type: URINE SPECIMEN Ordering Facility: [facility] Address: [address] [address] Performed By: #### 2 888-6 #### [facility] CLIA [id number] [address] [place] Renal function 2000 panelon 01-10-2023 Albumin [Mass/Vol] 4.3 g/dL Normal 3.9-4.9 [facility] Comment on above: Order Comment: Speci men Type: BLOOD SPECIMEN Ordering Facility: [facility] Address: [address] [place] [address] Performed By: #### 2 4362-6 #### [facility] CLIA [id number] [address] [place] [address] [place] Anion gap [Moles/Vol] 12 mmol/L Normal 9-18 [facility] Comment on above: Order Comment: Speci men Type: BLOOD SPECIMEN Ordering Facility: [facility] Address: [address] [place] [address] Performed By: #### 2 4362-6 #### [facility] CLIA [id number] [address] [place] [address] [place] Calcium [Mass/Vol] 9.9 mg/dL Normal 8.5-10.2 [facility] Comment on above: Order Comment: Speci men Type: BLOOD SPECIMEN Ordering Facility: [facility] Address: [address] [address] Performed By: #### 2 4362-6 #### [facility] [place] [id number] [address] [place] [address] [place] Chloride [Moles/Vol] 102 mmol/L Normal 97-105 [facility] Comment on above: Order Comment: Speci men Type: BLOOD SPECIMEN Ordering Facility: [facility] Address: [address] Performed By: #### 2 4362-6 #### [facility] IA [id number] [address] [place] [address] [place] CO2 [Moles/Vol] 24 mmol/L Normal 22-30 [facility] Comment on above: Order Comment: Speci men Type: BLOOD SPECIMEN Ordering Facility: [facility] Address: [address] [address] Performed By: #### 2 4362-6 #### [facility] [place] [id number] [address] [place] [address] [place] Creatinine [Mass/Vol] 2.00 mg/dL High 0.58-0.96 [facility] Comment on above: Order Comment: Speci men Type: BLOOD SPECIMEN Ordering Facility: [facility] Address: [address] [place] [address] Performed By: #### 2 4362-6 #### [facility] [place] [id number] [address] [place] ESTIMATED GLOMERULAR FILTRATION RATE 25 mL/min/1.73m??? Low >=60 [facility] Comment on above: Order Comment: Nestori men Type: BLOOD SPECIMEN Ordering Facility: [facility] Address: [address] [place] [address] Result Comment: Malini mated Glomerular Filtration Rate (eGFR) is calculated using the 2020 CKD-EPI creatinine equation. This equation utilizes serum creatinine, sex, and age as parameters. The creatinine assay has traceable calibration to isotope dilution-mass spectrometry. Refer to KDIGO guidelines for clinical interpretation. In patients with unstable renal function, e.g. those with acute kidney injury, the eGFR may not accurately reflect actual GFR. Performed By: #### 2 4362-6 #### [facility] [place] [id number] [address] [place] [address] [place] Glucose [Mass/Vol] 309 mg/dL High 74-99 [facility] Comment on above: Order Comment: Speci men Type: BLOOD SPECIMEN Ordering Facility: [facility] Address: [address] [address] Result Comment: The [place] Diabetes Association (ADA) provides guidance for cutoff values for fasting glucose and random glucose. The ADA defines fasting as no caloric intake for at least 8 hours. Fasting plasma glucose results between 100 to 125 mg/dL indicate increased risk for diabetes (prediabetes). Fasting plasma glucose results greater than or equal to 126 mg/dL meet the criteria for diagnosis of diabetes. In the absence of unequivocal hyperglycemia, results should be confirmed by repeat testing. In a patient with classic symptoms of hyperglycemia or hyperglycemic crisis, random plasma glucose results greater than or equal to 200 mg/dL meet the criteria for diagnosis of diabetes. Reference: Standards of Medical Care in Diabetes 2016, [place] Diabetes Association. Diabetes Care. 2016.39(Suppl 1). Performed By: #### 2 4362-6 #### [facility] CLIA [id number] [address] [place] [address] [place] Phosphate [Mass/Vol] 4.2 mg/dL Normal 2.7-4.8 [facility] Comment on above: Order Comment: Speci men Type: BLOOD SPECIMEN Ordering Facility: [facility] Address: [address] [address] Performed By: #### 2 4362-6 #### [facility] CLIA [id number] [address] [place] [address] [place] Potassium [Moles/Vol] 4.9 mmol/L Normal 3.7-5.1 [facility] Comment on above: Order Comment: Speci men Type: BLOOD SPECIMEN Ordering Facility: [facility] Address: [address] [address] Performed By: #### 2 4362-6 #### [facility] CLIA [id number] [address] [place] [address] [place] Sodium [Moles/Vol] 138 mmol/L Normal 136-144 [facility] Comment on above: Order Comment: Speci men Type: BLOOD SPECIMEN Ordering Facility: [facility] Address: [address] [address] Performed By: #### 2 4362-6 #### [facility] CLIA [id number] [address] [place] [address] [place] Urea nitrogen [Mass/Vol] 81 mg/dL High 7-21 [facility] Comment on above: Order Comment: Speci men Type: BLOOD SPECIMEN Ordering Facility: [facility] Address: [address] [place], [place] [phone] Performed By: #### 2 4362-6 #### [facility] CLIA [id number] [address] [place] [address] [place] Albumin [Mass/Vol] 4.3 g/dL 3.9 - 4.9 g/dL [facility] Anion gap [Moles/Vol] 12 mmol/L 9 - 18 mmol/L [facility] Calcium [Mass/Vol] 9.9 mg/dL 8.5 - 10. 2 mg/dL [facility] Chloride [Moles/Vol] 102 mmol/L 97 - 10 5 mmol/L [facility] CO2 [Moles/Vol] 24 mmol/L 22 - 30 mmol/L [facility] Creatinine [Mass/Vol] 2.00 mg/dL High 0.58 - 0.96 mg/dL [facility] Estimated Glomerular Filtration Rate 25 mL/min/1.73m Low >=60 mL/min/1.73m [facility] Glucose [Mass/Vol] 309 mg/dL High 74 - 99 mg/dL [facility] Phosphate [Mass/Vol] 4.2 mg/dL 2.7 - 4 .8 mg/dL [facility] Potassium [Moles/Vol] 4.9 mmol/L 3.7 - 5.1 mmol/L [facility] Sodium [Moles/Vol] 138 mmol/L 136 - 144 mmol/L [facility] Urea nitrogen [Mass/Vol] 81 mg/dL High 7 - 21 mg/dL [facility] CARDIAC MIKE 3-6on 2 CK [Catalytic activity/Vol] 107 U/L Normal 26-192 [facility] Comment on above: Performed By: #### C MREP #### [facility] [address] [address] [address] Elaina Garnett CK.MB [Mass/Vol] 2.62 ng/mL Normal <=3.60 [facility] Comment on above: Performed By: #### C MREP #### [facility] [address] [place] [address] Dr. Elaina Garnett HSTROP 9.0 pg/mL Normal 4.0-51.3 [facility] Comment on above: Result Comment: CUT- OFF POINTS HAVE BEEN ESTABLISHED BASED ON THE FOURTH UNIVERSAL DEFINITIONS OF MYOCARDIAL INFARCTION. THE UPPER REFERENCE LIMIT (URL) OF TROPONIN, DEFINED THE 99TH PERCENTILE OF cTnI DISTRIBUTION IN A REFERENCE POPULATION, HAS BEEN CONFIRMED THE DECISION THRESHOLD FOR [place] DIAGNOSIS. Performed By: #### C MREP #### [facility] [address] [place] [address] Dr. Elaina Garnett CBC AUTO DIFFon 11-05-2022 BASO # 0.1 103/ul Normal 0.0-0.1 [facility] Comment on above: Performed By: #### C BC #### [facility] [address] [place] [address] Dr. Elaina Garnett Basophils/100 WBC (Bld) 0.6 % Normal 0.2-2.0 [facility] Comment on above: Performed By: #### C BC #### [facility] [address] [place] [address] Dr. Elaina Garnett EO # 0.2 103/ul Normal 0.0-0.7 [facility] Comment on above: Performed By: #### C BC #### [facility] [address] [place] [address] Dr. Elaina Garnett Eosinophils/100 WBC (Bld) 2.1 % Normal 0.9-7.0 [facility] Comment on above: Performed By: #### C BC #### [facility] [address] [place] [address] Dr. Elaina Garnett Erythrocyte distribution width (RBC) [Ratio] 13.2 % Normal 11.0-15.0 [facility] Comment on above: Performed By: #### C BC #### [facility] [address] [place] [address] Dr. Elaina Garnett Hematocrit (Bld) [Volume fraction] 37.1 % Normal 36.0-48.0 [facility] Comment on above: Performed By: #### C BC #### [facility] [address] [place] [address] Dr. Elaina Garnett Hemoglobin (Bld) [Mass/Vol] 12.4 g/dL Normal 12.0-16.0 [facility] Comment on above: Performed By: #### C BC #### [facility] [address] [place] [address] Dr. Elaina Garnett IG # 0.02 10e3/ul Normal 0.00-0.03 [facility] Comment on above: Performed By: #### C BC #### [facility] [address] [place] [address] Dr. Elaina Garnett IG % 0.2 % Normal 0.0-0.5 [facility] Comment on above: Performed By: #### C BC #### [facility] [address] [place] [address] Dr. Elaina Garnett LYMPH # 2.0 103/ul Normal 1.2-3.8 [facility] Comment on above: Performed By: #### C BC #### [facility] [address] [place] [address] Dr. Elaina Garnett Lymphocytes/100 WBC (Bld) 23.4 % Normal 20.5-60.0 [facility] Comment on above: Performed By: #### C BC #### [facility] [address] [place] [address] Dr. Elaina Garnett MANUAL DIFF REQ NO Normal [facility] Comment on above: Performed By: #### C BC #### [facility] [address] [place] [address] Dr. Elaina Garnett MCH (RBC) [Entitic mass] 29.8 pg Normal 26.7-34.0 [facility] Comment on above: Performed By: #### C BC #### [facility] [address] [place] [address] Dr. Elaina Garnett MCHC (RBC) [Mass/Vol] 33.4 g/dL Normal 29.9-35.2 [facility] Comment on above: Performed By: #### C BC #### [facility] [address] [address] [address] Elaina Garnett MCV (RBC) [Entitic vol] 89.2 fL Normal 81.0-99.0 [facility] Comment on above: Performed By: #### C BC #### [facility] [address] [address] [address] Elaina Garnett MONO # 1.1 103/ul Critically high 0.3-0.8 [facility] Comment on above: Performed By: #### C BC #### [facility] [address] [address] [address] Elaina Garnett Monocytes/100 WBC (Bld) 12.1 % Critically high 1.7-12.0 [facility] Comment on above: Performed By: #### C BC #### [facility] [address] [address] [address] Elaina Garnett NEUT # 5.4 103/ul Normal 1.4-6.5 [facility] Comment on above: Performed By: #### C BC #### [facility] [address] [address] [address] Elaina Garnett Neutrophils/100 WBC (Bld) 61.6 % Normal 43.0-75.0 [facility] Comment on above: Performed By: #### C BC #### [facility] [address] [address] [address] Elaina Garnett Platelet mean volume (Bld) [Entitic vol] 10.2 fL Normal 9.5-13.5 [facility] Comment on above: Performed By: #### C BC #### [facility] [address] [address] [address] Elaina Garnett PLT 202 103/ul Normal 150-450 [facility] Comment on above: Performed By: #### C BC #### [facility] [address] [address] [address] Elaina Garnett RBC 4.16 106/ul Critically low 4.20-5.40 [facility] Comment on above: Performed By: #### C BC #### [facility] [address] [place] [address] Dr. Elaina Garnett WBC 8.7 103/ul Normal 4.0-11.0 [facility] Comment on above: Performed By: #### C BC #### [facility] [address] [address] [address] Elaina Garnett POINT OF CARE GLUCOSEon 10-27 Glucose [Mass/Vol] 183 mg/dL Critically high 74-[address] [facility] Comment on above: Performed By: #### C MP #### [facility] [address] [place] [address] Dr. Elaina Garnett PROF 14(COMP METB)on 022 Albumin [Mass/Vol] 3.0 g/dL Critically low 3.4-5.0 [facility] Comment on above: Performed By: #### C MP #### [facility] [address] [place] [address] Dr. Elaina Garnett Albumin/Globulin [Mass ratio] 0.8 {ratio} Normal [facility] Comment on above: Performed By: #### C MP #### [facility] [address] [place] [address] Dr. Elaina Garnett ALP [Catalytic activity/Vol] 81 U/L Normal 46-116 [facility] Comment on above: Performed By: #### C MP #### [facility] [address] [place] [address] Dr. Elaina Garnett ALT [Catalytic activity/Vol] 13 U/L Critically low 14-59 [facility] Comment on above: Performed By: #### C MP #### [facility] [address] [place] [address] Dr. Elaina Garnett Anion gap [Moles/Vol] 13.0 mmol/L Normal [facility] Comment on above: Performed By: #### C MP #### [facility] [address] [place] [address] Dr. Elaina Garnett AST [Catalytic activity/Vol] 17 U/L Normal 15-37 [facility] Comment on above: Performed By: #### C MP #### [facility] [address] [address] [address] Elaina Garnett Bilirubin [Mass/Vol] 0.5 mg/dL Normal 0.2-1.0 [facility] Comment on above: Performed By: #### C MP #### [facility] [address] [address] [address] Elaina Garnett Calcium [Mass/Vol] 8.3 mg/dL Critically low 8.5-10.1 [facility] Comment on above: Performed By: #### C MP #### [facility] [address] [address] [address] Elaina Garnett Chloride [Moles/Vol] 106 mmol/L Normal 98-107 [facility] Comment on above: Performed By: #### C MP #### [facility] [address] [address] [address] Elaina Garnett CO2 [Moles/Vol] 24.4 mmol/L Normal 21.0-32.0 [facility] Comment on above: Performed By: #### C MP #### [facility] [address] [address] [address] Elaina Garnett Creatinine [Mass/Vol] 2.13 mg/dL Critically high 0.55-1.02 [facility] Comment on above: Performed By: #### C MP #### [facility] [address] [address] [address] Elaina Garnett EGFR-AF PARAGUAYAN 27 mL/min/1.73m2 Critically low >=60 [facility] Comment on above: Performed By: #### C MP #### [facility] [address] [address] [address] Elaina Garnett EGFR-NON AF PARAGUAYAN 22 mL/min/1.73m2 Critically low >=60 [facility] Comment on above: Performed By: #### C MP #### [facility] [address] [address] [address] Elaina Garnett Globulin (S) [Mass/Vol] 3.6 g/dL Normal [facility] Comment on above: Performed By: #### C MP #### [facility] [address] [address] [address] Elaina Garnett Glucose [Mass/Vol] 209 mg/dL Critically high 74-106 [facility] Comment on above: Performed By: #### C MP #### [facility] [address] [address] [address] Elaina Garnett Potassium [Moles/Vol] 4.4 mmol/L Normal 3.5-5.1 [facility] Comment on above: Performed By: #### C MP #### [facility] [address] [address] [address] Elaina Garnett Protein [Mass/Vol] 6.6 g/dL Normal 6.4-8.2 [facility] Comment on above: Performed By: #### C MP #### [facility] [address] [address] [address] Elaina Garnett Sodium [Moles/Vol] 139 mmol/L Normal 136-145 [facility] Comment on above: Performed By: #### C MP #### [facility] [address] [address] [address] Elaina Garnett Urea nitrogen [Mass/Vol] 101.0 mg/dL Critically high 7.0-18.0 [facility] Comment on above: Performed By: #### C MP #### [facility] [address] [address] [address] Elaina Garnett Urea nitrogen/Creatinine [Mass ratio] 47.4 mg/mg Normal [facility] Comment on above: Performed By: #### C MP #### [facility] [address] [address] [address] 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 Elaina Garnett Clarity (U) CLEAR Normal CLEAR [facility] Comment on above: Performed By: #### R SPLUS #### [facility] [address] [address] [address] Elaina Garnett Color (U) LT. YELLOW Normal YELLOW [facility] Comment on above: Performed By: #### R SPLUS #### [facility] [address] [place] [address] Dr. Elaina Garnett Glucose Ql (U) Negative Normal NEGATIVE [facility] Comment on above: Performed By: #### R SPLUS #### [facility] [address] [place] [address] Dr. Elaina Garnett Hemoglobin Ql (U) Negative Normal NEGATIVE [facility] Comment on above: Performed By: #### R SPLUS #### [facility] [address] [place] [address] Dr. Elaina Garnett Ketones Ql (U) Negative Normal NEGATIVE [facility] Comment on above: Performed By: #### R SPLUS #### [facility] [address] [place] [address] Dr. Elaina Garnett LEUKOCYTES Negative Normal NEGATIVE [facility] Comment on above: Performed By: #### R SPLUS #### [facility] [address] [place] [address] Dr. Elaina Garnett Nitrite Ql (U) Negative Normal NEGATIVE [facility] Comment on above: Performed By: #### R SPLUS #### [facility] [address] [place] [address] Dr. Elaina Garnett pH (U) 5.5 [pH] Normal 5-9 [facility] Comment on above: Performed By: #### R SPLUS #### [facility] [address] [place] [address] Dr. Elaina Garnett SPEC GRAVITY 1.010 Normal 1.005-<=1.025 [facility] Comment on above: Performed By: #### R SPLUS #### [facility] [address] [place] [address] Dr. Elaina Garnett UA PROTEIN Negative Normal NEGATIVE/ TRACE [facility] Comment on above: Performed By: #### R SPLUS #### [facility] [address] [place] [address] Dr. Elaina Garnett UR MICRO IND NOT INDICATED Normal [facility] Comment on above: Performed By: #### R SPLUS #### [facility] [address] [address] [address] Elaina Garnett Urobilinogen Qn (U) 0.2 {Danny'U}/dL Normal 0.2 - 1. 0 [facility] Comment on above: Performed By: #### R SPLUS #### [facility] [address] [address] [address] Elaina Garnett BLOOD GASES BTYon 11-04-[address] [facility] Comment on above: Result Comment: TEST NOT PERFORMED- RESULTED IN ERROR Previously reported as: POSITIVE On 11/04/2022 17:32 By LM4 Performed By: #### C BC #### [facility] [address] [place] [address] Dr. Elaina Garnett BIPAP PRESSURE [facility] Comment on above: Performed By: #### C BC #### [facility] [address] [address] [address] Elaina Garnett CPAP [facility] Comment on above: Performed By: #### C BC #### [facility] [address] [place] [address] Dr. Elaina Garnett FIO2 [facility] Comment on above: Performed By: #### C BC #### [facility] [address] [place] [address] Dr. [address] [facility] Comment on above: Performed By: #### C BC #### [facility] [address] [place] [address] Dr. Elaina Garnett MINUTE VOLUME Normal [facility] Comment on above: Performed By: #### C BC #### [facility] [address] [place] [address] Dr. [address] [facility] Comment on above: Performed By: #### C BC #### [facility] [address] [place] [address] Dr. [address] PIP [facility] Comment on above: Performed By: #### C BC #### [facility] [address] [place] [address] Dr. Elaina Garnett [facility] Comment on above: Performed By: #### C BC #### [facility] [address] [place] [address] Dr. Elaina Garnett [facility] Comment on above: Performed By: #### C BC #### [facility] [address] [place] [address] Dr. Elaina Garnett [facility] Comment on above: Performed By: #### C BC #### [facility] [address] [place] [address] Dr. Elaina Garnett [facility] Comment on above: Performed By: #### C BC #### [facility] [address] [place] [address] Dr. Elaina Garnett BNPon 11-04-2022 Natriuretic peptide B (Bld) [Mass/Vol] 356.0 pg/mL Normal <=1,800.0 [facility] Comment on above: Performed By: #### C BC #### [facility] [address] [place] [address] Dr. Elaina Garnett BUNon 11-04-2022 Urea nitrogen [Mass/Vol] 112.0 mg/dL Critically high 7.0-18.0 [facility] Comment on above: Performed By: #### B UN #### [facility] [address] [place] [address] Dr. Elaina Garnett CARDIAC MIKE 3-6on 2 CK [Catalytic activity/Vol] 100 U/L Normal 26-192 [facility] Comment on above: Performed By: #### C MREP #### [facility] [address] [place] [address] Dr. Elaina Garnett CK.MB [Mass/Vol] 2.57 ng/mL Normal <=3.60 [facility] Comment on above: Performed By: #### C MREP #### [facility] [address] [place] [address] Dr. Elaina Garnett HSTROP 7.3 pg/mL Normal 4.0-51.3 [facility] Comment on above: Result Comment: CUT- OFF POINTS HAVE BEEN ESTABLISHED BASED ON THE FOURTH UNIVERSAL DEFINITIONS OF MYOCARDIAL INFARCTION. THE UPPER REFERENCE LIMIT (URL) OF TROPONIN, DEFINED THE 99TH PERCENTILE OF cTnI DISTRIBUTION IN A REFERENCE POPULATION, HAS BEEN CONFIRMED THE DECISION THRESHOLD FOR IA DIAGNOSIS. Performed By: #### C MREP #### [facility] [address] [place] [address] Dr. Elaina Garnett CARDIAC MIKE ADMITon 022 CK [Catalytic activity/Vol] 97 U/L Normal 26-192 [facility] Comment on above: Performed By: #### C BC #### [facility] [address] [place] [address] Dr. Elaina Garnett CK.MB [Mass/Vol] 2.35 ng/mL Normal <=3.60 [facility] Comment on above: Performed By: #### C BC #### [facility] [address] [place] [address] Dr. Elaina Garnett HSTROP 7.8 pg/mL Normal 4.0-51.3 [facility] Comment on above: Result Comment: CUT- OFF POINTS HAVE BEEN ESTABLISHED BASED ON THE FOURTH UNIVERSAL DEFINITIONS OF MYOCARDIAL INFARCTION. THE UPPER REFERENCE LIMIT (URL) OF TROPONIN, DEFINED THE 99TH PERCENTILE OF cTnI DISTRIBUTION IN A REFERENCE POPULATION, HAS BEEN CONFIRMED THE DECISION THRESHOLD FOR IA DIAGNOSIS. Performed By: #### C BC #### [facility] [address] [place] [address] Dr. Elaina Garnett TAO 155 ng/mL Critically high 9-82 [facility] Comment on above: Performed By: #### C BC #### [facility] [address] [place] [address] Dr. Elaina Garnett CBC AUTO DIFFon 11-04-2022 BASO # 0.1 103/ul Normal 0.0-0.1 [facility] Comment on above: Performed By: #### R SPLUS #### [facility] [address] [place] [address] Dr. Elaina Garnett Basophils/100 WBC (Bld) 1.0 % Normal 0.2-2.0 [facility] Comment on above: Performed By: #### R SPLUS #### [facility] [address] [place] [address] Dr. Elaina Garnett EO # 0.3 103/ul Normal 0.0-0.7 [facility] Comment on above: Performed By: #### R SPLUS #### [facility] [address] [place] [address] Dr. Elaina Garnett Eosinophils/100 WBC (Bld) 3.2 % Normal 0.9-7.0 [facility] Comment on above: Performed By: #### R SPLUS #### [facility] [address] [place] [address] Dr. Elaina Garnett Erythrocyte distribution width (RBC) [Ratio] 13.2 % Normal 11.0-15.0 [facility] Comment on above: Performed By: #### R SPLUS #### [facility] [address] [place] [address] Dr. Elaina Garnett Hematocrit (Bld) [Volume fraction] 42.5 % Normal 36.0-48.0 [facility] Comment on above: Performed By: #### R SPLUS #### [facility] [address] [place] [address] Dr. Elaina Garnett Hemoglobin (Bld) [Mass/Vol] 14.3 g/dL Normal 12.0-16.0 [facility] Comment on above: Performed By: #### R SPLUS #### [facility] [address] [place] [address] Dr. Elaina Garnett IG # 0.03 10e3/ul Normal 0.00-0.03 [facility] Comment on above: Performed By: #### R SPLUS #### [facility] [address] [place] [address] Dr. Elaina Garnett IG % 0.3 % Normal 0.0-0.5 [facility] Comment on above: Performed By: #### R SPLUS #### [facility] [address] [place] [address] Dr. Elaina Garnett LYMPH # 3.2 103/ul Normal 1.2-3.8 [facility] Comment on above: Performed By: #### R SPLUS #### [facility] [address] [address] [address] Elaina Garnett Lymphocytes/100 WBC (Bld) 32.2 % Normal 20.5-60.0 [facility] Comment on above: Performed By: #### R SPLUS #### [facility] [address] [address] [address] Elaina Garnett MANUAL DIFF REQ NO Normal [facility] Comment on above: Performed By: #### R SPLUS #### [facility] [address] [address] [address] Elaina Garnett MCH (RBC) [Entitic mass] 29.5 pg Normal 26.7-34.0 [facility] Comment on above: Performed By: #### R SPLUS #### [facility] [address] [place] [address] Dr. Elaina Garnett MCHC (RBC) [Mass/Vol] 33.6 g/dL Normal 29.9-35.2 [facility] Comment on above: Performed By: #### R SPLUS #### [facility] [address] [place] [address] Dr. Elaina Garnett MCV (RBC) [Entitic vol] 87.8 fL Normal 81.0-99.0 [facility] Comment on above: Performed By: #### R SPLUS #### [facility] [address] [place] [address] Dr. Elaina Garnett MONO # 1.5 103/ul Critically high 0.3-0.8 [facility] Comment on above: Performed By: #### R SPLUS #### [facility] [address] [place] [address] Dr. Elaina Garnett Monocytes/100 WBC (Bld) 14.5 % Critically high 1.7-12.0 [facility] Comment on above: Performed By: #### R SPLUS #### [facility] [address] [address] [address] Elaina Garnett NEUT # 4.9 103/ul Normal 1.4-6.5 [facility] Comment on above: Performed By: #### R SPLUS #### [facility] [address] [address] [address] Elaina Garnett Neutrophils/100 WBC (Bld) 48.8 % Normal 43.0-75.0 [facility] Comment on above: Performed By: #### R SPLUS #### [facility] [address] [place] [address] Dr. Elaina Garnett Platelet mean volume (Bld) [Entitic vol] 9.8 fL Normal 9.5-13.5 [facility] Comment on above: Performed By: #### R SPLUS #### [facility] [address] [place] [address] Dr. Elaina Garnett PLT 277 103/ul Normal 150-450 [facility] Comment on above: Performed By: #### R SPLUS #### [facility] [address] [place] [address] Dr. Elaina Garnett RBC 4.84 106/ul Normal 4.20-5.40 [facility] Comment on above: Performed By: #### R SPLUS #### [facility] [address] [place] [address] Dr. Elaina Garnett WBC 10.0 103/ul Normal 4.0-11.0 [facility] Comment on above: Performed By: #### R SPLUS #### [facility] [address] [place] [address] HEAD WO CONon 11-04-2022 CT HEAD WO CON EXAMINATION: CT HEAD WO CON, , 11/04/2022 4:23 PM EST INDICATION: WEAKNESS HISTORY: Ordering Provider Reason for Exam: Technologist Note: Additional: COMPARISON: None. TECHNIQUE: CT scan of the head was performed without IV contrast. CT dose reduction technique was used, including Automated Exposure Control. FINDINGS: Ventricles and sulci are normal in size and configuration. No extra-axial collection. No intracranial hemorrhage. No mass effect or edema. No CT evidence of large territorial infarction. Visualized paranasal sinuses are well aerated. Mastoids are clear. Calvarium is unremarkable. IMPRESSION: No intracranial hemorrhage or mass effect. Electronically authenticated by: JUAN GARRETT Date: 2022-11-04 17:14 Normal [facility] Covid-19 PCR (CVDTB)on SARS-CoV-2 (COVID-19) RNA BARB+probe Ql (Unsp spec) Not detected Normal NOT DETECTED [facility] Comment on above: Result Comment: When diagnostic testing is negative, the possibility of a false negative should be considered in the context of a patient's recent exposures and the presence of clinical signs and symptoms consistent with SARS-CoV-2. This test is not yet approved or cleared by the [place] FDA. When there are no FDA-approved or cleared tests available, and other criteria are met, FDA can make tests available under an emergency access mechanism called an Emergency Use Authorization (EUA). The EUA for this test is supported by the Senior Hr Manager of Health and Human Service's declaration that circumstances exist to justify the emergency use of in vitro diagnostics for the detection and/or diagnosis of the virus that causes COVID-19. This EUA will remain in effect for the duration of the COVID-19 declaration justifying emergency of IVDs, unless it is terminated or revoked by the FDA (after which the test may no longer be used). Performed By: #### R SPLUS #### [facility] [address] [place] [address] Dr. Elaina Garnett INFLUENZA A AND B AGon 11-04 INFLUANEGH SEE BELOW Normal [facility] Comment on above: Result Comment: Nega tive for Flu A protein angiten. Infection due to Flu A cannot be ruled out. Flu A angiten in the sample may be below the detection limit of the test. Performed By: #### C BC #### [facility] [address] [address] [address] Elain[facility] Garn[facility] Normal [facility] Comment on above: Result Comment: Nega tive for Flu B protein antigen. Infection due to Flu B cannot be ruled out. Flu B antigen in the sample may be below the detection limit of the test. Performed By: #### C BC #### [facility] [address] [place] [address] Dr. Elaina Garnett INFLUENZA A AG Negative Normal NEGATIVE SEE COMMENT [facility] Comment on above: Performed By: #### C BC #### [facility] [address] [address] [address] Elaina Garnett INFLUENZA B AG Negative Normal NEGATIVE SEE COMMENT [facility] Comment on above: Performed By: #### C BC #### [facility] [address] [address] [address] Elaina Garnett INTERNAL CONTROLS Within Normal Limits Normal Wi thin Normal Limits [facility] Comment on above: Performed By: #### C BC #### [facility] [address] [address] [address] Elaina Garnett LIPASEon 11-04-2022 Lipase [Catalytic activity/Vol] 163.0 U/L Normal 73.0-393.0 [facility] Comment on above: Performed By: #### C BC #### [facility] [address] [place] [address] Dr. Elaina Garnett POINT OF CARE GLUCOSEon Glucose [Mass/Vol] 246 mg/dL Critically high [address] [place] [address] Comment on above: Performed By: #### P OCGLUC #### [facility] [address] [address] [address] Elaina Garnett Glucose [Mass/Vol] 224 mg/dL Critically high [address] [place] [address] Comment on above: Performed By: #### P OCGLUC #### [facility] [address] [address] [address] Elaina Garnett Glucose [Mass/Vol] 113 mg/dL Critically high [facility] [facility] Comment on above: Performed By: #### C BC #### [facility] [address] [address] [address] Elaina Garnett Glucose [Mass/Vol] 47 mg/dL Critically low -106 [facility] Comment on above: Result Comment: DR Lizeth KAM Performed By: #### P OCGLUC #### [facility] [address] [place] [address] Dr. Elaina Garnett Glucose [Mass/Vol] 127 mg/dL Critically high [address] [place] [address] Comment on above: Performed By: #### C BC #### [facility] [address] [address] [address] Elaina Garnett PROF 14(COMP METB)on 022 Albumin [Mass/Vol] 4.1 g/dL Normal 3.4-5.0 [facility] Comment on above: Performed By: #### C BC #### [facility] [address] [place] [address] Dr. Elaina Garnett Albumin/Globulin [Mass ratio] 0.9 {ratio} Normal [facility] Comment on above: Performed By: #### C BC #### [facility] [address] [place] [address] Dr. Elaina Garnett ALP [Catalytic activity/Vol] 105 U/L Normal 46-116 [facility] Comment on above: Performed By: #### C BC #### [facility] [address] [place] [address] Dr. Elaina Garnett ALT [Catalytic activity/Vol] 19 U/L Normal 14-59 [facility] Comment on above: Performed By: #### C BC #### [facility] [address] [place] [address] Dr. Elaina Garnett Anion gap [Moles/Vol] 14.1 mmol/L Normal [facility] Comment on above: Performed By: #### C BC #### [facility] [address] [place] [address] Dr. Elaina Garnett AST [Catalytic activity/Vol] 20 U/L Normal 15-37 [facility] Comment on above: Performed By: #### C BC #### [facility] [address] [place] [address] Dr. Elaina Garnett Bilirubin [Mass/Vol] 0.6 mg/dL Normal 0.2-1.0 [facility] Comment on above: Performed By: #### C BC #### [facility] [address] [place] [address] Dr. Elaina Garnett Calcium [Mass/Vol] 9.8 mg/dL Normal 8.5-10.1 [facility] Comment on above: Performed By: #### C BC #### [facility] [address] [address] [address] Elaina Garnett Chloride [Moles/Vol] 102 mmol/L Normal 98-107 [facility] Comment on above: Performed By: #### C BC #### [facility] [address] [address] [address] Elaina Garnett CO2 [Moles/Vol] 27.7 mmol/L Normal 21.0-32.0 [facility] Comment on above: Performed By: #### C BC #### [facility] [address] [address] [address] Elaina Garnett Creatinine [Mass/Vol] 2.25 mg/dL Critically high 0.55-1.02 [facility] Comment on above: Performed By: #### C BC #### [facility] [address] [place] [address] Dr. Elaina Garnett EGFR-AF PARAGUAYAN 25 mL/min/1.73m2 Critically low >=60 [facility] Comment on above: Performed By: #### C BC #### [facility] [address] [address] [address] Elaina Garnett EGFR-NON AF PARAGUAYAN 21 mL/min/1.73m2 Critically low >=60 [facility] Comment on above: Performed By: #### C BC #### [facility] [address] [place] [address] Dr. Elaina Garnett Globulin (S) [Mass/Vol] 4.6 g/dL Normal [facility] Comment on above: Performed By: #### C BC #### [facility] [address] [address] [address] Elaina Garnett Glucose [Mass/Vol] 27 mg/dL Critically low 74-106 [facility] Comment on above: Performed By: #### C BC #### [facility] [address] [address] [address] Elaina Garnett Potassium [Moles/Vol] 3.8 mmol/L Normal 3.5-5.1 [facility] Comment on above: Performed By: #### C BC #### [facility] [address] [address] [address] Elaina Garnett Protein [Mass/Vol] 8.7 g/dL Critically high 6.4-8.2 [facility] Comment on above: Performed By: #### C BC #### [facility] [address] [address] [address] Elaina Garnett Sodium [Moles/Vol] 140 mmol/L Normal 136-145 [facility] Comment on above: Performed By: #### C BC #### [facility] [address] [address] [address] Elaina Garnett Urea nitrogen [Mass/Vol] 117.0 mg/dL Critically high 7.0-18.0 [facility] Comment on above: Performed By: #### C BC #### [facility] [address] [place] [address] Dr. Elaina Garnett Urea nitrogen/Creatinine [Mass ratio] 52.0 mg/mg Normal [facility] Comment on above: Performed By: #### C BC #### [facility] [address] [place] [address] Dr. Elaina Garnett PROTIMEon 11-04-2022 INR Coag (PPP) [Relative time] 1.00 {INR} Normal [facility] Comment on above: Performed By: #### C BC #### [facility] [address] [place] [address] Dr. Elaina Garnett INR GUIDELINES SEE BELOW Normal [facility] Comment on above: Result Comment: HOA RED INR: 2.0 - 3.0 CONDITIONS NOT LISTED BELOW 2.5 - 3.5 FOR PROSTHETIC HEART VALVE REPLACEMENT 2.5 - 3.5 RECURRENT THROMBOSIS Performed By: #### C BC #### [facility] [address] [place] [address] Dr. Elaina Garnett PT Coag (PPP) [Time] 10.8 s Normal 9.0-11.6 [facility] Comment on above: Performed By: #### C BC #### [facility] [address] [place] [address] Dr. Elaina Garnett PTTon 11-04-2022 aPTT Coag (Bld) [Time] 28.5 s Normal 22.3-36.2 [facility] Comment on above: Performed By: #### C BC #### [facility] [address] [place] [address] Dr. Elaina Garnett XR CHEST 1 Von 11-04-2022 XR CHEST 1 V EXAM: XR CHEST 1 V HISTORY: SHORTNESS OF BREATH COMPARISON: 08/12/2019 FINDINGS: The lungs and pleural spaces are clear. No focal airspace opacity. No pleural effusion. The central airway is clear. No pneumothorax. The heart and pulmonary vascularity appear unremarkable. Aortic arch calcifications are seen. No acute bony abnormality. IMPRESSION: No acute cardiopulmonary abnormality. Electronically authenticated by: ELLEN EL Date: 2022-11-04 16:54 Normal [facility] BNPon 09-14-2022 Natriuretic peptide B (Bld) [Mass/Vol] 685.0 pg/mL Normal <=1,800.0 [facility] Comment on above: Performed By: #### C MP #### [facility] [address] [place] [address] Dr. Elaina Garnett BUNon 09-14-2022 Urea nitrogen [Mass/Vol] 67.0 mg/dL Critically high 7.0-18.0 [facility] Comment on above: Performed By: #### C MP #### [facility] [address] [place] [address] Dr. Elaina Garnett CBC AUTO DIFFon 09-14-2022 BASO # 0.1 103/ul Normal 0.0-0.1 [facility] Comment on above: Performed By: #### C BC #### [facility] [address] [place] [address] Dr. Elaina Garnett Basophils/100 WBC (Bld) 1.1 % Normal 0.2-2.0 [facility] Comment on above: Performed By: #### C BC #### [facility] [address] [place] [address] Dr. Elaina Garnett EO # 0.3 103/ul Normal 0.0-0.7 [facility] Comment on above: Performed By: #### C BC #### [facility] [address] [place] [address] Dr. Elaina Garnett Eosinophils/100 WBC (Bld) 3.6 % Normal 0.9-7.0 [facility] Comment on above: Performed By: #### C BC #### [facility] [address] [place] [address] Dr. Elaina Garnett Erythrocyte distribution width (RBC) [Ratio] 13.8 % Normal 11.0-15.0 [facility] Comment on above: Performed By: #### C BC #### [facility] [address] [place] [address] Dr. Elaina Garnett Hematocrit (Bld) [Volume fraction] 40.7 % Normal 36.0-48.0 [facility] Comment on above: Performed By: #### C BC #### [facility] [address] [place] [address] Dr. Elaina Garnett Hemoglobin (Bld) [Mass/Vol] 13.4 g/dL Normal 12.0-16.0 [facility] Comment on above: Performed By: #### C BC #### [facility] [address] [place] [address] Dr. Elaina Garnett IG # 0.02 10e3/ul Normal 0.00-0.03 [facility] Comment on above: Performed By: #### C BC #### [facility] [address] [place] [address] Dr. Elaina Garnett IG % 0.2 % Normal 0.0-0.5 [facility] Comment on above: Performed By: #### C BC #### [facility] [address] [place] [address] Dr. Elaina Garnett LYMPH # 2.2 103/ul Normal 1.2-3.8 [facility] Comment on above: Performed By: #### C BC #### [facility] [address] [place] [address] Dr. Elaina Garnett Lymphocytes/100 WBC (Bld) 26.0 % Normal 20.5-60.0 [facility] Comment on above: Performed By: #### C BC #### [facility] [address] [place] [address] Dr. Elaina Garnett MANUAL DIFF REQ NO Normal [facility] Comment on above: Performed By: #### C BC #### [facility] [address] [place] [address] Dr. Elaina Garnett MCH (RBC) [Entitic mass] 30.7 pg Normal 26.7-34.0 [facility] Comment on above: Performed By: #### C BC #### [facility] [address] [place] [address] Dr. Elaina Garnett MCHC (RBC) [Mass/Vol] 32.9 g/dL Normal 29.9-35.2 [facility] Comment on above: Performed By: #### C BC #### [facility] [address] [place] [address] Dr. Elaina Garnett MCV (RBC) [Entitic vol] 93.3 fL Normal 81.0-99.0 [facility] Comment on above: Performed By: #### C BC #### [facility] [address] [place] [address] Dr. Elaina Garnett MONO # 1.0 103/ul Critically high 0.3-0.8 [facility] Comment on above: Performed By: #### C BC #### [facility] [address] [place] [address] Dr. Elaina Garnett Monocytes/100 WBC (Bld) 12.4 % Critically high 1.7-12.0 [facility] Comment on above: Performed By: #### C BC #### [facility] [address] [place] [address] Dr. Elaina Garnett NEUT # 4.7 103/ul Normal 1.4-6.5 [facility] Comment on above: Performed By: #### C BC #### [facility] [address] [place] [address] Dr. Elaina Garnett Neutrophils/100 WBC (Bld) 56.7 % Normal 43.0-75.0 [facility] Comment on above: Performed By: #### C BC #### [facility] [address] [address] [address] Elaina Garnett Platelet mean volume (Bld) [Entitic vol] 9.7 fL Normal 9.5-13.5 [facility] Comment on above: Performed By: #### C BC #### [facility] [address] [place] [address] Dr. Elaina Garnett PLT 230 103/ul Normal 150-450 [facility] Comment on above: Performed By: #### C BC #### [facility] [address] [address] [address] Elaina Garnett RBC 4.36 106/ul Normal 4.20-5.40 [facility] Comment on above: Performed By: #### C BC #### [facility] [address] [place] [address] Dr. Elaina Garnett WBC 8.3 103/ul Normal 4.0-11.0 [facility] Comment on above: Performed By: #### C BC #### [facility] [address] [place] [address] Dr. Elaina Garnett CREATININEon 09-14-2022 Creatinine [Mass/Vol] 1.93 mg/dL Critically high 0.55-1.02 [facility] Comment on above: Performed By: #### C MP #### [facility] [address] [place] [address] Dr. Elaina Garnett EGFR-AF PARAGUAYAN 30 mL/min/1.73m2 Critically low >=60 [facility] Comment on above: Performed By: #### C MP #### [facility] [address] [place] [address] Dr. Elaina Garnett EGFR-NON AF PARAGUAYAN 25 mL/min/1.73m2 Critically low >=60 [facility] Comment on above: Performed By: #### C MP #### [facility] [address] [place] [address] Dr. Elaina Garnett ELECTROLYTESon 09-14-2022 Anion gap [Moles/Vol] 13.1 mmol/L Normal [facility] Comment on above: Performed By: #### C MP #### [facility] [address] [place] [address] Dr. Elaina Garnett Chloride [Moles/Vol] 103 mmol/L Normal 98-107 [facility] [facility] Comment on above: Performed By: #### C MP #### [facility] [address] [address] [address] Elaina Garnett CO2 [Moles/Vol] 25.5 mmol/L Normal 21.0-32.0 [facility] Comment on above: Performed By: #### C MP #### [facility] [address] [address] [address] Elaina Garnett Potassium [Moles/Vol] 4.6 mmol/L Normal 3.5-5.1 [facility] Comment on above: Performed By: #### C MP #### [facility] [address] [address] [address] Elaina Garnett Sodium [Moles/Vol] 137 mmol/L Normal 136-145 [facility] Comment on above: Performed By: #### C MP #### [facility] [address] [address] [address] Elaina Garnett GLYCOHEMOGLOBIN A1Con 2021 ADA RECOMMENDATION SEE BELOW Normal [facility] Comment on above: Result Comment: ADA RECOMMENDED LIMIT 4.0 - 6.0 ADA THERAPEUTIC TARGET < 7.0 ACTION SUGGESTED > 7.0 Performed By: #### R SPLUS #### [facility] [address] [address] [address] Elaina Garnett Glucose [Mass/Vol] 209 mg/dL Normal [facility] Comment on above: Performed By: #### R SPLUS #### [facility] [address] [address] [address] Elaina Garnett HbA1c (Bld) [Mass fraction] 8.9 % Critically high 4.5-6.2 [facility] Comment on above: Performed By: #### R SPLUS #### [facility] [address] [address] [address] Elaina Garnett LIPID PROFILEon 09-14-2022 CHOL-HDL RATIO NORM SEE BELOW Normal [facility] Comment on above: Result Comment: 3.3 - 4.4 LOW RISK 4.4 - 7.1 AVERAGE RISK 7.1 - 11.0 MODERATE RISK >11.0 HIGH RISK Performed By: #### C MP #### [facility] [address] [address] [address] Elaina Garnett Cholesterol [Mass/Vol] 135 mg/dL Normal <=200 [facility] Comment on above: Performed By: #### C MP #### [facility] [address] [address] [address] Elaina Garnett Cholesterol in HDL [Mass/Vol] 39 mg/dL Critically low 40-60 [facility] Comment on above: Performed By: #### C MP #### [facility] [address] [place] [address] Dr. Elaina Garnett Cholesterol in LDL [Mass/Vol] 67.4 mg/dL Normal [facility] Comment on above: Performed By: #### C MP #### [facility] [address] [place] [address] Dr. Elaina Garnett Cholesterol.total/Ch olesterol in HDL [Mass ratio] 3.5 {ratio} Normal [facility] Comment on above: Performed By: #### C MP #### [facility] [address] [place] [address] Dr. Elaina Garnett HDL NORMAL > or = 60 mg/dl - LO W CARDIOVASCULAR RISK <40 mg/dl - HIGH CARDIOVASCULAR RISK Normal [facility] Comment on above: Performed By: #### C MP #### [facility] [address] [place] [address] Dr. Elaina Garnett LDL CALC NORMAL SEE BELOW Normal [facility] Comment on above: Result Comment: <100 mg/dl OPTIMAL 100 - 129 mg/dl NEAR OR ABOVE OPTIMAL 130 - 159 mg/dl BORDERLINE HIGH 160 - 189 mg/dl HIGH >190 mg/dl VERY HIGH Performed By: #### C MP #### [facility] [address] [place] [address] Dr. Elaina Garnett Triglyceride [Mass/Vol] 143 mg/dL Normal <=150 [facility] Comment on above: Performed By: #### C MP #### [facility] [address] [place] [address] Dr. Elaina Garnett VLDL CALC 28.6 mg/dL Normal [facility] Comment on above: Performed By: #### C MP #### [facility] [address] [place] [address] Dr. Elaina Garnett LIVER PROFILEon 09-14-2022 Albumin [Mass/Vol] 3.4 g/dL Normal 3.4-5.0 [facility] Comment on above: Performed By: #### C MP #### [facility] [address] [place] [address] Dr. Elaina Garnett Albumin/Globulin [Mass ratio] 0.8 {ratio} Normal [facility] Comment on above: Performed By: #### C MP #### [facility] [address] [place] [address] Dr. Elaina Garnett ALP [Catalytic activity/Vol] 122 U/L Critically high 46-116 [facility] Comment on above: Performed By: #### C MP #### [facility] [address] [place] [address] Dr. Elaina Garnett ALT [Catalytic activity/Vol] 17 U/L Normal 14-59 [facility] Comment on above: Performed By: #### C MP #### [facility] [address] [place] [address] Dr. Elaina Garnett AST [Catalytic activity/Vol] 15 U/L Normal 15-37 [facility] Comment on above: Performed By: #### C MP #### [facility] [address] [place] [address] Dr. Elaina Garnett BILI, CONJUGATED 0.1 mg/dL Normal 0.0-0.2 [facility] Comment on above: Performed By: #### C MP #### [facility] [address] [place] [address] Dr. Elaina Garnett Bilirubin [Mass/Vol] 0.6 mg/dL Normal 0.2-1.0 [facility] Comment on above: Performed By: #### C MP #### [facility] [address] [place] [address] Dr. Elaina Garnett Globulin (S) [Mass/Vol] 4.1 g/dL Normal [facility] Comment on above: Performed By: #### C MP #### [facility] [address] [address] [address] Elaina Garnett Protein [Mass/Vol] 7.5 g/dL Normal 6.4-8.2 [facility] Comment on above: Performed By: #### C MP #### [facility] [id number] Elaina Garnett TSHon 09-14-2022 TSH 1.535 uIU/mL Normal 0.358-3.740 [facility] Comment on above: Performed By: #### C MP #### [facility] [id number] Elaina Garnett MG MAMM SCREEN 3D PEDRO CADon 09-13-2022 MG MAMM SCREEN 3D PEDRO CAD Patient: VARSHA NIEVES Exam Date: 09/13/2022 : 1945 Gender:F Ordering : DR MADDISON MENDEZ Admission #: [id number] Family : Order #: [id number] CLICK HERE TO VIEW EXAM RADIOLOGY REPORT PROCEDURE: MAMMOGRAM SCREENING 3D BILATERAL CAD COMPARISON: MG MAMM SCREEN 3D PEDRO CAD, 09/10/2021. MG MAMM SCREEN PEDRO W CAD, 08/31/2020. INDICATIONS: Screening mammography Calculator Name NCI Breast Cancer Risk Assessment Tool 5 Year Breast Cancer Risk 3.10% Lifetime Breast Cancer Risk 5.10% Personal Breast Cancer No Personal Ovarian Cancer No Treatments HYSTERECTECTOMY AND PEDRO OOPHERECTOMY, RADIATION TREATMENTS Family Cancers None LOCATION: [facility] BREAST COMPOSITION: Scattered areas fibroglandular density. FINDINGS: DIAGNOSTIC CATEGORY 2--BENIGN FINDING: RIGHT BREAST: No significant suspicious finding. Scattered benign-appearing calcifications are present. Stable biopsy marker clips. No significant change has occurred. LEFT BREAST: No significant suspicious finding. Scattered benign-appearing calcifications are present. No significant change has occurred. RECOMMENDATIONS: ROUTINE MAMMOGRAM AND CLINICAL EVALUATION IN 12 MONTHS. PLEASE NOTE: A NORMAL MAMMOGRAM DOES NOT EXCLUDE THE POSSIBILITY OF BREAST CANCER. A CLINICALLY SUSPICIOUS PALPABLE LUMP SHOULD BE BIOPSIED. Dictated by: Mahogany Benton M.D. on 09/14/2022 at 13:42 Approved by: Mahogany Benton M.D. on 09/14/2022 at 14:11 Normal [facility] RENAL FUNCTION PANELon 05-17 Albumin [Mass/Vol] 3.5 g/dL Normal 3.4-5.0 [facility] Comment on above: Performed By: #### C MP #### [facility] [address] [address] [address] Elaina Garnett Calcium [Mass/Vol] 8.8 mg/dL Normal 8.5-10.1 [facility] Comment on above: Performed By: #### C MP #### [facility] [address] [address] [address] Elaina Garnett Chloride [Moles/Vol] 106 mmol/L Normal 98-107 [facility] Comment on above: Performed By: #### C MP #### [facility] [address] [address] [address] Elaina Garnett CO2 [Moles/Vol] 29.1 mmol/L Normal 21.0-32.0 [facility] Comment on above: Performed By: #### C MP #### [facility] [address] [address] [address] Elaina Garnett Creatinine [Mass/Vol] 2.04 mg/dL Critically high 0.55-1.02 [facility] Comment on above: Performed By: #### C MP #### [facility] [address] [address] [address] Elaina Garnett EGFR-AF PARAGUAYAN 29 mL/min/1.73m2 Critically low >=60 [facility] Comment on above: Performed By: #### C MP #### [facility] [address] [address] [address] Elaina Garnett EGFR-NON AF PARAGUAYAN 24 mL/min/1.73m2 Critically low >=60 [facility] Comment on above: Performed By: #### C MP #### [facility] [address] [address] [address] Elaina Garnett Glucose [Mass/Vol] 46 mg/dL Critically low 74-106 [facility] Comment on above: Performed By: #### C MP #### [facility] [address] [address] [address] Elaina Garnett Phosphate [Mass/Vol] 4.2 mg/dL Normal 2.6-4.7 [facility] Comment on above: Performed By: #### C MP #### [facility] [address] [address] [address] Elaina Garnett Potassium [Moles/Vol] 4.6 mmol/L Normal 3.5-5.1 [facility] Comment on above: Performed By: #### C MP #### [facility] [address] [address] [address] Elaina Garnett Sodium [Moles/Vol] 142 mmol/L Normal 136-145 [facility] Comment on above: Performed By: #### C MP #### [facility] [address] [address] [address] Elaina Garnett Urea nitrogen [Mass/Vol] 65.0 mg/dL Critically high 7.0-18.0 [facility] Comment on above: Performed By: #### C MP #### [facility] [address] [address] [address] Elaina Garnett Basic metabolic 2000 panelon 05-03-2021 Anion gap [Moles/Vol] 11 mmol/L Normal 9-18 [facility] Comment on above: Order Comment: Speci men Type: BLOOD SPECIMEN Ordering Facility: [facility] Address: [address] [place] [address] Performed By: #### 1 989-3 #### [facility] CLIA [id number] [address] [place] [address] [place] Calcium [Mass/Vol] 9.9 mg/dL Normal 8.5-10.2 [facility] Comment on above: Order Comment: Speci men Type: BLOOD SPECIMEN Ordering Facility: [facility] Address: [address] [place], [place] [address] Performed By: #### 1 989-3 #### [facility] CLIA [id number] [address] [place] [address] [place] Chloride [Moles/Vol] 101 mmol/L Normal 97-105 [facility] Comment on above: Order Comment: Speci men Type: BLOOD SPECIMEN Ordering Facility: [facility] Address: [address] [address] Performed By: #### 1 989-3 #### [facility] CLIA [id number] [address] [place] CO2 [Moles/Vol] 24 mmol/L Normal 22-30 [facility] Comment on above: Order Comment: Speci men Type: BLOOD SPECIMEN Ordering Facility: [facility] Address: [address] [place] [address] Performed By: #### 1 989-3 #### [facility] CLIA [id number] [address] [place] Creatinine [Mass/Vol] 1.99 mg/dL High 0.58-0.96 [facility] Comment on above: Order Comment: Speci men Type: BLOOD SPECIMEN Ordering Facility: [facility] Address: [address] [place] [address] Performed By: #### 1 989-3 #### [facility] CLIA [id number] [facility] [address] [place] ESTIMATED GLOMERULAR FILTRATION RATE 25 mL/min/1.73m??? Low >=60 [facility] Comment on above: Order Comment: Speci men Type: BLOOD SPECIMEN Ordering Facility: [facility] Address: [address] [place] [address] Result Comment: Malini mated Glomerular Filtration Rate (eGFR) is calculated using the 2020 CKD-EPI creatinine equation. This equation utilizes serum creatinine, sex, and age as parameters. The creatinine assay has traceable calibration to isotope dilution-mass spectrometry. Refer to KDIGO guidelines for clinical interpretation. In patients with unstable renal function, e.g. those with acute kidney injury, the eGFR may not accurately reflect actual GFR. Performed By: #### 1 989-3 #### [facility] CLIA [id number] [address] [place] [address] [place] Glucose [Mass/Vol] 317 mg/dL High 74-99 [facility] Comment on above: Order Comment: Speci men Type: BLOOD SPECIMEN Ordering Facility: [facility] Address: [address] [address] Result Comment: The [place] Diabetes Association (ADA) provides guidance for cutoff values for fasting glucose and random glucose. The ADA defines fasting as no caloric intake for at least 8 hours. Fasting plasma glucose results between 100 to 125 mg/dL indicate increased risk for diabetes (prediabetes). Fasting plasma glucose results greater than or equal to 126 mg/dL meet the criteria for diagnosis of diabetes. In the absence of unequivocal hyperglycemia, results should be confirmed by repeat testing. In a patient with classic symptoms of hyperglycemia or hyperglycemic crisis, random plasma glucose results greater than or equal to 200 mg/dL meet the criteria for diagnosis of diabetes. Reference: Standards of Medical Care in Diabetes 2016, [place] Diabetes Association. Diabetes Care. 2016.39(Suppl 1). Performed By: #### 1 989-3 #### [facility] CLIA [id number] [address] [place] [address] [place] Potassium [Moles/Vol] 5.7 mmol/L High 3.7-5.1 [facility] Comment on above: Order Comment: Nestori men Type: BLOOD SPECIMEN Ordering Facility: [facility] Address: [address] Performed By: #### 1 989-3 #### [facility] CLIA [id number] [address] [place] [address] [place] Sodium [Moles/Vol] 136 mmol/L Normal 136-144 [facility] Comment on above: Order Comment: Speci men Type: BLOOD SPECIMEN Ordering Facility: [facility] Address: [address] Performed By: #### 1 989-3 #### [facility] CLIA [id number] [address] [place] [address] [place] Urea nitrogen [Mass/Vol] 57 mg/dL High 7-21 [facility] Comment on above: Order Comment: Speci men Type: BLOOD SPECIMEN Ordering Facility: [facility] Address: [address] [address] Performed By: #### 1 989-3 #### [facility] CLIA [id number] [address] [place] [address] [place] CBC panel Auto (Bld)on 05-03 Erythrocyte distribution width (RBC) [Ratio] 14.0 % Normal 11.5-15.0 [facility] Comment on above: Order Comment: Speci men Type: BLOOD SPECIMEN Ordering Facility: [facility] Address: [address] [place] [address] Performed By: #### 5 8410-2 #### [facility] [place] [id number] [address] [place] Hematocrit (Bld) [Volume fraction] 43.3 % Normal 36.0-46.0 [facility] Comment on above: Order Comment: Speci men Type: BLOOD SPECIMEN Ordering Facility: [facility] Address: [address] [address] Performed By: #### 5 8410-2 #### [facility] [place] [id number] [address] [place] [address] [place] Hemoglobin (Bld) [Mass/Vol] 13.6 g/dL Normal 11.5-15.5 [facility] Comment on above: Order Comment: Speci men Type: BLOOD SPECIMEN Ordering Facility: [facility] Address: [address] [place] [address] Performed By: #### 5 8410-2 #### [facility] [place] [id number] [address] [place] [address] [place] MCH (RBC) [Entitic mass] 29.2 pg Normal 26.0-34.0 [facility] Comment on above: Order Comment: Speci men Type: BLOOD SPECIMEN Ordering Facility: [facility] Address: [address] [place], [place] [address] Performed By: #### 5 8410-2 #### [facility] CLIA [id number] [address] [place] [address] [place] MCHC (RBC) [Mass/Vol] 31.4 g/dL Normal 30.5-36.0 [facility] Comment on above: Order Comment: Speci men Type: BLOOD SPECIMEN Ordering Facility: [facility] Address: [address] [place], [place] [address] Performed By: #### 5 8410-2 #### [facility] CLIA [id number] [address] [place] [address] [place] MCV (RBC) [Entitic vol] 93.1 fL Normal 80.0-100.0 [facility] Comment on above: Order Comment: Speci men Type: BLOOD SPECIMEN Ordering Facility: [facility] Address: [address] [place], [place] [address] Performed By: #### 5 8410-2 #### [facility] CLIA [id number] [address] [place] [address] [place] Nucleated RBC (Bld) [#/Vol] 10*3/uL Normal <0.01 [facility] Comment on above: Order Comment: Speci men Type: BLOOD SPECIMEN Ordering Facility: [facility] Address: [address] [place], [place] [address] Performed By: #### 5 8410-2 #### [facility] CLIA [id number] [address] [place] [address] [place] Platelet mean volume (Bld) [Entitic vol] 9.8 fL Normal 9.0-12.7 [facility] Comment on above: Order Comment: Speci men Type: BLOOD SPECIMEN Ordering Facility: [facility] Address: [address] [place], [place] [address] Performed By: #### 5 8410-2 #### [facility] CLIA [id number] [address] [place] [address] [place] Platelets (Bld) [#/Vol] 247 10*3/uL Normal 150-400 [facility] Comment on above: Order Comment: Speci men Type: BLOOD SPECIMEN Ordering Facility: [facility] Address: [address] [place] [address] Performed By: #### 5 8410-2 #### [facility] CLIA [id number] [address] [place] RBC (Bld) [#/Vol] 4.65 10*6/uL Normal 3.90-5.20 [facility] Comment on above: Order Comment: Speci men Type: BLOOD SPECIMEN Ordering Facility: [facility] Address: [address] [place] [address] Performed By: #### 5 8410-2 #### [facility] [place] [id number] [address] OF [facility] WBC (Bld) [#/Vol] 8.50 10*3/uL Normal 3.70-11.00 [facility] Comment on above: Order Comment: Speci men Type: BLOOD SPECIMEN Ordering Facility: [facility] Address: [address] [place] [address] Performed By: #### 5 8410-2 #### [facility] IA [id number] [address] [place] Erythrocyte distribution width (RBC) [Ratio] 14.0 % 11.5 - 15.0 % [facility] Hematocrit (Bld) [Volume fraction] 43.3 % 36.0 - 46.0 % [facility] Hemoglobin (Bld) [Mass/Vol] 13.6 g/dL 11.5 - 15.5 g/dL [facility] MCH (RBC) [Entitic mass] 29.2 pg 26.0 - 34.0 pg [facility] MCHC (RBC) [Mass/Vol] 31.4 g/dL 30.5 - 36.0 g/dL [facility] MCV (RBC) [Entitic vol] 93.1 fL 80.0 - 100.0 fL [facility] Nucleated RBC (Bld) [#/Vol] 10*3/uL <0.01 k/uL [facility] Platelet mean volume (Bld) [Entitic vol] 9.8 fL 9.0 - 12.7 fL [facility] Platelets (Bld) [#/Vol] 247 10*3/uL 150 - 400 k/uL [facility] RBC (Bld) [#/Vol] 4.65 10*6/uL 3.90 - 5.2 0 m/uL [facility] WBC (Bld) [#/Vol] 8.50 10*3/uL 3.70 - 11. 00 k/uL [facility] HEPATIC FUNCTION PNLon 05-03 Albumin [Mass/Vol] 4.2 g/dL Normal 3.9-4.9 [facility] Comment on above: Order Comment: Speci men Type: BLOOD SPECIMEN Ordering Facility: [facility] Address: [address] [place] [address] Performed By: #### 1 989-3 #### [facility] CLIA [id number] [address] [place] [address] [place] ALP [Catalytic activity/Vol] 114 U/L Normal 34-123 [facility] Comment on above: Order Comment: Speci men Type: BLOOD SPECIMEN Ordering Facility: [facility] Address: [address] [place] [address] Performed By: #### 1 989-3 #### [facility] CLIA [id number] [address] [place] ALT [Catalytic activity/Vol] 11 U/L Normal 7-38 [facility] Comment on above: Order Comment: Speci men Type: BLOOD SPECIMEN Ordering Facility: [facility] Address: [address] [place] [address] Performed By: #### 1 989-3 #### [facility] CLIA [id number] [address] [place] [address] [place] AST [Catalytic activity/Vol] 17 U/L Normal 13-35 [facility] Comment on above: Order Comment: Speci men Type: BLOOD SPECIMEN Ordering Facility: [facility] Address: [address] [address] Performed By: #### 1 989-3 #### [facility] CLIA [id number] [address] [place] [address] [place] Bilirubin [Mass/Vol] 0.7 mg/dL Normal 0.2-1.3 [facility] Comment on above: Order Comment: Speci men Type: BLOOD SPECIMEN Ordering Facility: [facility] Address: [address] [place] [address] Performed By: #### 1 989-3 #### [facility] CLIA [id number] [address] [place] [address] [place] Bilirubin.conjugated [Mass/Vol] mg/dL Normal <0.2 [facility] Comment on above: Order Comment: Speci men Type: BLOOD SPECIMEN Ordering Facility: [facility] Address: [address] Performed By: #### 1 989-3 #### [facility] CLIA [id number] [address] [place] [address] [place] Protein [Mass/Vol] 7.7 g/dL Normal 6.3-8.0 [facility] Comment on above: Order Comment: Speci men Type: BLOOD SPECIMEN Ordering Facility: [facility] Address: [address] Performed By: #### 1 989-3 #### [facility] CLIA [id number] [address] [place] [address] [place] Albumin [Mass/Vol] 4.2 g/dL 3.9 - 4.9 g/dL [facility] ALP [Catalytic activity/Vol] 114 U/L 34 - 123 U/L [facility] ALT [Catalytic activity/Vol] 11 U/L 7 - 38 U/L [facility] AST [Catalytic activity/Vol] 17 U/L 13 - 35 U/L [facility] Bilirubin [Mass/Vol] 0.7 mg/dL 0.2 - 1 .3 mg/dL [facility] Bilirubin.conjugated [Mass/Vol] mg/dL <0.2 mg/dL [facility] Protein [Mass/Vol] 7.7 g/dL 6.3 - 8.0 g/dL [facility] LIPID PANEL BASICon 05-03-20 22 Cholesterol [Mass/Vol] 155 mg/dL Normal <200 [facility] Comment on above: Order Comment: Nestori men Type: BLOOD SPECIMEN Ordering Facility: [facility] Address: [address] [address] Result Comment: <200 mg/dL, Desirable 200-239 mg/dL, Borderline high >239 mg/dL, High Performed By: #### 1 989-3 #### [facility] CLIA [id number] [facility] [address] OF [facility] Cholesterol in HDL [Mass/Vol] 39 mg/dL Low >39 [facility] Comment on above: Order Comment: Earline porras Type: BLOOD SPECIMEN Ordering Facility: [facility] Address: [address] [address] Result Comment: 40-5 9 mg/dL, Acceptable >59 mg/dL, High: Negative risk factor for coronary heart disease <40 mg/dL, Low: Positive risk factor for coronary heart disease Performed By: #### 1 989-3 #### [facility] CLIA [id number] [facility] [address] [place] Cholesterol in LDL [Mass/Vol] 62 mg/dL Normal <100 [facility] Comment on above: Order Comment: Earline [facility] Type: BLOOD SPECIMEN Ordering Facility: [facility] Address: [address] [address] Result Comment: <100 mg/dL, Optimal 100-129 mg/dL, Near optimal/above optimal 130-159 mg/dL, Borderline high 160-189 mg/dL, High >189 mg/dL, Very high Secondary prevention optimal LDL Cholesterol levels are recommended to be < 70 mg/dL Performed By: #### 1 989-3 #### [facility] CLIA [id number] [address] [place] Cholesterol in LDL/Cholesterol in HDL [Mass ratio] 1.59 {ratio} Normal <2.54 [facility] Comment on above: Order Comment: Nestori men Type: BLOOD SPECIMEN Ordering Facility: [facility] Address: [address] [address] Result Comment: Refe kayliece: 1. National Cholesterol Education Program ATP III Guideline At-A-Glance Quick Desk Reference: National Heart, Lung, and Blood [place]. National Institutes of Health. 2001: NIH Publication No. 01-3305. 2. An International Atherosclerosis Society position paper: global recommendations for the management of dyslipidemia: executive summary, Atherosclerosis. 2014: 232(2):410-413. Performed By: #### 1 989-3 #### [facility] CLIA [id number] [address] [place] Cholesterol in VLDL [Mass/Vol] 54 mg/dL High <30 [facility] Comment on above: Order Comment: Earline porras Type: BLOOD SPECIMEN Ordering Facility: [facility] Address: [address] [place] [address] Performed By: #### 1 989-3 #### [facility] CLIA [id number] [address] [place] Cholesterol non HDL [Mass/Vol] 116 mg/dL Normal <130 [facility] Comment on above: Order Comment: Speci men Type: BLOOD SPECIMEN Ordering Facility: [facility] Address: [address] [address] Result Comment: <130 mg/dL, Optimal 130-159 mg/dL, Near optimal/above optimal 160-189 mg/dL, Borderline high 190-219 mg/dL, High >219 mg/dL, Very high Secondary prevention optimal non HDL Cholesterol levels are recommended to be <100 mg/dL Performed By: #### 1 989-3 #### [facility] CLIA [id number] [address] OF [facility] Cholesterol.total/Ch olesterol in HDL [Mass ratio] 3.97 {ratio} Normal <5.10 [facility] Comment on above: Order Comment: Speci men Type: BLOOD SPECIMEN Ordering Facility: [facility] Address: [address] [address] Performed By: #### 1 989-3 #### [facility] CLIA [id number] [address] [place] [address] FASTING TIME 0 hrs Normal [facility] Comment on above: Order Comment: Speci men Type: BLOOD SPECIMEN Ordering Facility: [facility] Address: [address] [address] Performed By: #### 1 989-3 #### [facility] CLIA [id number] [address] [place] [address] OF [facility] Triglyceride [Mass/Vol] 272 mg/dL High <150 [facility] Comment on above: Order Comment: Speci men Type: BLOOD SPECIMEN Ordering Facility: [facility] Address: [address] [address] Result Comment: <150 mg/dL, Normal 150-199 mg/dL, Borderline high 200-499 mg/dL, High >499 mg/dL, Very high Performed By: #### 1 989-3 #### [facility] CLIA [id number] [address] [place] [address] [place] Cholesterol [Mass/Vol] 155 mg/dL <200 mg/dL [facility] Cholesterol in HDL [Mass/Vol] 39 mg/dL Low >39 mg/dL [facility] Cholesterol in LDL [Mass/Vol] 62 mg/dL <100 mg/dL [facility] Cholesterol in LDL/Cholesterol in HDL [Mass ratio] 1.59 {ratio} <2.54 [facility] Cholesterol in VLDL [Mass/Vol] 54 mg/dL High <30 mg/dL [facility] Cholesterol non HDL [Mass/Vol] 116 mg/dL <130 mg/dL [facility] Cholesterol.total/Ch olesterol in HDL [Mass ratio] 3.97 {ratio} <5.10 [facility] Fasting Time 0 hrs [facility] Triglyceride [Mass/Vol] 272 mg/dL High <150 mg/dL [facility] MAGNESIUM BLDon 05-03-2022 Magnesium [Mass/Vol] 2.5 mg/dL High 1.7 - 2 .3 mg/dL [facility] Magnesium SerPl-mCncon 05-03 Magnesium [Mass/Vol] 2.5 mg/dL High 1.7-2.3 [facility] Comment on above: Order Comment: Speci men Type: BLOOD SPECIMEN Ordering Facility: [facility] Address: [address] [place] [address] Performed By: #### 1 9123-9, 2777-1, 55768-6 #### [facility] CLIA [id number] [place] [address] [place] NT PRO BNPon 05-03-2022 Natriuretic peptide.B prohormone N-Terminal [Mass/Vol] 340 pg/mL <450 pg/mL [facility] NT-proBNP SerPl-mCncon 05-03 Natriuretic peptide.B prohormone N-Terminal [Mass/Vol] 340 pg/mL Normal <450 [facility] Comment on above: Order Comment: Speci men Type: BLOOD SPECIMEN Ordering Facility: [facility] Address: [address] [place] [address] Performed By: #### 1 9123-9, 2777-1, 71792-6 #### [facility] CLIA [id number] [address] [place] [address] [place] Phosphate SerPl-mCncon 05-03 Phosphate [Mass/Vol] 4.8 mg/dL Normal 2.7-4.8 [facility] Comment on above: Order Comment: Speci men Type: BLOOD SPECIMEN Ordering Facility: [facility] Address: [address] [place] [address] Performed By: #### 1 9123-9, 2777-1, 27112-7 #### [facility] CLIA [id number] [address] [place] [address] [place] TSH BLDon 05-03-2022 TSH Qn 1.590 m[IU]/L 0.270 - 4.200 mIU/L [facility] TSH SerPl-aCncon 05-03-2022 TSH Qn 1.590 m[IU]/L Normal 0.270-4.200 Evie sandoval Comment on above: Order Comment: Speci men Type: BLOOD SPECIMEN Ordering Facility: [facility] Address: [address] [place], [place] [id number] Performed By: #### 1 989-3 #### [facility] CLIA [id number] [address] [facility] [address] [place] Vital Signs Date Time Vital Sign Value Performing Clinician Michelle trotter 06-13-2023 14:45-0400 Body height 162.6 cm Tiera Spangler GERIATRIC SOCIAL WORKER.SERVICE AND REPAIR SUPERVISOR Work Phone: [facility] 06-13-2023 14:45-0400 Body weight 88.45 kg Tiera Spangler GERIATRIC SOCIAL WORKER.SERVICE AND REPAIR SUPERVISOR Work Phone: [facility] 06-13-2023 14:45-0400 Diastolic blood pressure 83 mm[Hg] Tiera Spangler GERIATRIC SOCIAL WORKER.SERVICE AND REPAIR SUPERVISOR Work Phone: [facility] 06-13-2023 14:45-0400 Heart rate 80 /min Tiera Spangler GERIATRIC SOCIAL WORKER.SERVICE AND REPAIR SUPERVISOR Work Phone: [facility] 06-13-2023 14:45-0400 Systolic blood pressure 130 mm[Hg] Tiera Spangler GERIATRIC SOCIAL WORKER.SERVICE AND REPAIR SUPERVISOR Work Phone: [facility] 01-10-2023 11:01-0500 Body height 162.6 cm Tiera Spangler GERIATRIC SOCIAL WORKER.SERVICE AND REPAIR SUPERVISOR Work Phone: [facility] 01-10-2023 11:01-0500 Body weight 86.64 kg Tiera Spangler GERIATRIC SOCIAL WORKER.SERVICE AND REPAIR SUPERVISOR Work Phone: [facility] 01-10-2023 11:01-0500 Diastolic blood pressure 81 mm[Hg] Tiera Spangler GERIATRIC SOCIAL WORKER.SERVICE AND REPAIR SUPERVISOR Work Phone: [facility] 01-10-2023 11:01-0500 Heart rate 76 /min Tieraalison Spangler GERIATRIC SOCIAL WORKER.SERVICE AND REPAIR SUPERVISOR Work Phone: [facility] 01-10-2023 11:01-0500 Systolic blood pressure 130 mm[Hg] Tiera Spangler GERIATRIC SOCIAL WORKER.SERVICE AND REPAIR SUPERVISOR Work Phone: [facility] 05-03-2022 15:05-0400 Body height 162.6 cm Tiera Spangler GERIATRIC SOCIAL WORKER.SERVICE AND REPAIR SUPERVISOR Work Phone: [facility] 05-03-2022 15:05-0400 Body weight 89.63 kg Tiera Crys GERIATRIC SOCIAL WORKER.SERVICE AND REPAIR SUPERVISOR Work Phone: [facility] 05-03-2022 15:05-0400 Diastolic blood pressure 83 mm[Hg] Tiera Spangler GERIATRIC SOCIAL WORKER.SERVICE AND REPAIR SUPERVISOR Work Phone: [facility] 05-03-2022 15:05-0400 Heart rate 75 /min Tiera Spangler GERIATRIC SOCIAL WORKER.SERVICE AND REPAIR SUPERVISOR Work Phone: [facility] 05-03-2022 15:05-0400 Systolic blood pressure 182 mm[Hg] Tiera Crys GERIATRIC SOCIAL WORKER.SERVICE AND REPAIR SUPERVISOR Work Phone: [facility] Encounters Encounter Date Encounter Type Care Provider Facility Start: 11-28-2023 End: 11-28-2023 ambulatory MADDISON MENDEZ Not Available Start: 11-23-2023 End: 11-23-2023 ambulatory BOSTON ABDI Not Available Start: 11-15-2023 Telephone encounter Tiera Spangler APRN.SERVICE AND REPAIR SUPERVISOR Work Phone: [facility] Comment on above: Patient Update Start: 11-08-2023 Orders Only Tiera Sims.SERVICE AND REPAIR SUPERVISOR Work Phone: [facility] Comment on above: Benign hypertension with chronic kidney disease, stage IV (HCC) (Primary Dx) Start: 11-06-2023 Telephone encounter Tiera Spangler APRN.SERVICE AND REPAIR SUPERVISOR Work Phone: [facility] Comment on above: Results Start: 11-06-2023 End: 11-06-2023 ambulatory FLORENCE SKINNER Not Available Start: 10-23-2023 Telephone encounter Tiera Spangler GERIATRIC SOCIAL WORKER.SERVICE AND REPAIR SUPERVISOR Work Phone: [facility] Comment on above: Results Start: 10-10-2023 Telephone encounter Tiera Spangler GERIATRIC SOCIAL WORKER.SERVICE AND REPAIR SUPERVISOR Work Phone: [facility] Comment on above: Critical Results Start: 10-09-2023 Telephone encounter Tiera Spangler GERIATRIC SOCIAL WORKER.SERVICE AND REPAIR SUPERVISOR Work Phone: [facility] [place] Comment on above: Lab Orders Start: 07-20-2023 Telephone encounter Tiera Spangler GERIATRIC SOCIAL WORKER.SERVICE AND REPAIR SUPERVISOR Work Phone: [facility] [place] Comment on above: Medication Question Start: 06-13-2023 End: 06-13-2023 ambulatory TIERA SPANGLER Facility:[facility] Start: 06-13-2023 End: 06-13-2023 Patient encounter procedure Tiera Spangler GERIATRIC SOCIAL WORKER.SERVICE AND REPAIR SUPERVISOR Work Phone: [facility] Comment on above: Benign hypertension with chronic kidney disease, stage IV (HCC) (Primary Dx); CKD (chronic kidney disease) stage 4, GFR 15-29 ml/min (HCC); Proteinuria, unspecified type; Hyperkalemia; 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, unspecified whether alf insulin use (HCC) Start: 04-26-[address] ISSA NORTON [facility] ity:[facility] Start: 03-27-2023 End: 03-27-[address] JORGE RUIZ . Facility: Start: 03-25-2023 End: 03-26-[address] ISSA NORTON Facility: Start: 01-10-2023 End: 01-11-2023 ambulatory TIERA SPANGLER Facility:[facility] Start: 01-10-2023 End: 01-10-2023 Patient encounter procedure Tiera Spangler GERIATRIC SOCIAL WORKER.SERVICE AND REPAIR SUPERVISOR Work Phone: [facility] Comment on above: Benign hypertension with chronic kidney disease, stage IV (HCC) (Primary Dx); CKD (chronic kidney disease) stage 4, GFR 15-29 ml/min (HCC); Proteinuria, unspecified type; Hyperkalemia; 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, unspecified whether alf insulin use (HCC); Vitamin D deficiency Start: 11-04-2022 End: 11-05-[address] SHAHRZAD AKBAR . Facility:[facility] Start: 09-14-2022 End: 09-15-[address] ISSA NORTON Facility:[facility] Start: 09-13-2022 End: 09-14-[address] ISSA NORTON Facility:[facility] Start: 05-17-2022 Telephone encounter Marylu Elsy gregory DO Work Phone: [facility] Comment on above: Results Start: 05-17-2022 End: 05-18-[address] ISSA NORTON Facility:[facility] Start: 05-04-2022 Telephone encounter Tiera Spangler APRN.CNP Work Phone: [facility] Comment on above: Results Start: 05-03-2022 End: 05-04-2022 ambulatory TIERA SPANGLER Facility:[facility] Start: 05-03-2022 End: 05-03-2022 Patient encounter procedure Tiera Spangler APRN.SERVICE AND REPAIR SUPERVISOR Work Phone: [facility] Comment on above: Benign hypertension with chronic kidney disease, stage IV (HCC) (Primary Dx); CKD (chronic kidney disease) stage 4, GFR 15-29 ml/min (HCC); Proteinuria, unspecified type; Hyperkalemia; 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, unspecified whether ad terminal makeup operator insulin use (HCC); Vitamin D deficiency; Chronic combined systolic and diastolic congestive heart failure (HCC) Plan of Treatment Date Care Activity Detail Author Start: 12-05-2031 Urine microalbumin profile DTaP,Tdap,Td Vaccine (3 - Td or Tdap) [facility] Start: 01-10-2024 Complete blood count Hemoglobin/Dhaval tocrit [facility] Start: 01-10-2024 Creatinine measurement Serum Creatin ine [facility] Start: 01-10-2024 HEMOGLOBIN/HEMATOCRIT HEMOGLOBIN/HEM ATOCRIT [facility] Start: 01-10-2024 SERUM CREATININE SERUM CREATININE [facility] Start: 11-16-2023 Hemoglobin A1c measurement HbA1C [facility] Start: 11-16-2023 Hemoglobin A1c/Hemoglobin.total in Blood HbA1C [facility] Start: 11-08-2023 End: 02-07-2024 Renal function 2000 panel - Serum or Plasma RENAL FUNCTION PANEL Lab Routine Benign hypertension with chronic kidney disease, stage IV (HCC) Expected: 11/08/2023, Expires: 02/07/2024 [facility] Work Phone: Comment on above: Expected: 11/08/2023 , Expires: 02/07/2024 Start: 10-14-2023 End: 12-14-2023 25-hydroxyvitamin D3 [Mass/volume] in Serum or Plasma VITAMIN D 25 HYDROXY Lab Routine Benign hypertension with chronic kidney disease, stage IV (HCC) CKD (chronic kidney disease) stage 4, GFR 15-29 ml/min (HCC) Proteinuria, unspecified type Hyperkalemia 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, unspecified whether alf insulin use (HCC) Expected: 10/14/2023, Expires: 12/14/2023 [facility] Work Phone: Comment on above: Expected: 10/14/2023 , Expires: 12/14/2023 Start: 10-14-2023 End: 12-14-2023 ALBUMIN/CREAT RATIO RND UR ALBUMIN/CREAT RATIO RND UR Lab Routine Benign hypertension with chronic kidney disease, stage IV (HCC) CKD (chronic kidney disease) stage 4, GFR 15-29 ml/min (HCC) Proteinuria, unspecified type Hyperkalemia 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, unspecified whether alf insulin use (HCC) Expected: 10/14/2023, Expires: 12/14/2023 [facility] Work Phone: Comment on above: Expected: 10/14/2023 , Expires: 12/14/2023 Start: 10-14-2023 End: 12-14-2023 CBC panel - Blood by Automated count CBC Lab Routine Benign hypertension with chronic kidney disease, stage IV (HCC) CKD (chronic kidney disease) stage 4, GFR 15-29 ml/min (HCC) Proteinuria, unspecified type Hyperkalemia 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, unspecified whether alf insulin use (HCC) Expected: 10/14/2023, Expires: 12/14/2023 [facility] Work Phone: Comment on above: Expected: 10/14/2023 , Expires: 12/14/2023 Start: 10-14-2023 End: 12-14-2023 Parathyrin.intact [Mass/volume] in Serum or Plasma PTH INTACT BLD Lab Routine Benign hypertension with chronic kidney disease, stage IV (HCC) CKD (chronic kidney disease) stage 4, GFR 15-29 ml/min (HCC) Proteinuria, unspecified type Hyperkalemia 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, unspecified whether alf insulin use (HCC) Expected: 10/14/2023, Expires: 12/14/2023 [facility] Work Phone: Comment on above: Expected: 10/14/2023 , Expires: 12/14/2023 Start: 10-14-2023 End: 12-14-2023 Renal function 2000 panel - Serum or Plasma RENAL FUNCTION PANEL Lab Routine Benign hypertension with chronic kidney disease, stage IV (HCC) CKD (chronic kidney disease) stage 4, GFR 15-29 ml/min (HCC) Proteinuria, unspecified type Hyperkalemia 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, unspecified whether ad terminal makeup operator insulin use (HCC) Expected: 10/14/2023, Expires: 12/14/2023 [facility] Work Phone: Comment on above: Expected: 10/14/2023 , Expires: 12/14/2023 Start: 08-11-2023 Hemoglobin A1c/Hemoglobin.total in Blood HBA1C [facility] Start: 07-28-2023 Covid-19 Vaccine () Covid-19 Vaccine () [facility] Start: 07-28-2023 [facility] Start: 05-03-2023 HEMOGLOBIN/HEMATOCRIT HEMOGLOBIN/HEM ATOCRIT [facility] Start: 05-03-2023 Hepatitis B surface antibody level LDL CHOLESTEROL [facility] Start: 05-03-2023 SERUM CREATININE SERUM CREATININE [facility] Start: 01-10-2023 End: 03-12-2023 25-hydroxyvitamin D3 [Mass/volume] in Serum or Plasma [facility] Work Phone: Comment on above: Expected: 01/10/2023 , Expires: 03/12/2023 Start: 01-10-2023 End: 03-12-2023 Creatinine [Mass/volume] in Urine collected for unspecified duration [facility] Work Phone: Comment on above: Expected: 01/10/2023 , Expires: 03/12/2023 Start: 01-10-2023 End: 03-12-2023 Protein [Mass/volume] in Urine [facility] Work Phone: Comment on above: Expected: 01/10/2023 , Expires: 03/12/2023 Start: 01-07-2023 COVID-19 VACCINE (5 - Moderna series) COVID-19 VACCINE (5 - Moderna series) [facility] Start: 12-21-2022 SERUM CREATININE SERUM CREATININE [facility] Start: 11-27-2022 ADVANCE DIRECTIVE DISCUSSION ADVANCE DIRECTIVE DISCUSSION [facility] Start: 11-27-2022 DEPRESSION ASSESSMENT DEPRESSION ASS ESSMENT [facility] Start: 07-28-2022 Influenza vaccination [facility] Start: 05-06-2022 COVID-19 VACCINE (4 - Booster for Moderna series) COVID-19 VACCINE (4 - Booster for Moderna series) [facility] Start: 12-29-2021 Hemoglobin A1c/Hemoglobin.total in Blood HBA1C [facility] Start: 11-27-2021 ADVANCE DIRECTIVE DISCUSSION ADVANCE DIRECTIVE DISCUSSION [facility] Start: 09-18-2021 Hemoglobin A1c/Hemoglobin.total in Blood HBA1C [facility] Start: 11-12-2020 Hepatitis B surface antibody level LDL CHOLESTEROL [facility] Start: 2008 BONE DENSITY BONE DENSITY [facility] Start: 2008 Bone Density Screening Bone Density Screening [facility] Start: 2008 Screening for osteoporosis Bone Density Screening [facility] Start: 2003 Hepatitis B Vaccine (1 of 3 - Risk 3-dose series) Hepatitis B Vaccine (1 of 3 - Risk 3-dose series) [facility] Start: 2003 RSV Vaccine (1 - 1-d ose 60+ series) RSV Vaccine (1 - 1-dose 60+ series) [facility] Start: 1993 SHINGRIX VACCINE (1 of 2) SHINGRIX VACCINE (1 of 2) [facility] Start: 1962 Urine microalbumin profile DTAP,TDAP,TD (1 - Tdap) [facility] Start: 1961 ANNUAL PCP TEAM TIP STITCHER ZEUS DISEASE VISIT ANNUAL PCP TEAM CHRONIC DISEASE VISIT [facility] Start: 1961 BP CONTROLLED (<130/80) BP CONTROLLE D (<130/80) [facility] Start: 1955 Adult depression screening assessment DEPRESSION SCREENING [facility] Start: 1953 3 comp foot exam completed DIABETIC FOOT EXAM [facility] Start: 1953 Diabetic foot examination Diabetic Foot Exam [facility] Start: 1953 Glaucoma screening Dilated Retinal E xam [facility] Start: 1953 Hepatitis C antibody , confirmatory test DILATED RETINAL EXAM [facility] Start: 1949 Pneumococcal Vaccine : 65+ (1 - PCV) Pneumococcal Vaccine: 65+ (1 - PCV) [facility] Start: 1949 Pneumococcal Vaccine : 65+ (1 of 2 - PCV) Pneumococcal Vaccine: 65+ (1 of 2 - PCV) [facility] Start: 1949 PNEUMOCOCCAL: 65+ (1 - PCV) PNEUMOCOCCAL: 65+ (1 - PCV) [facility] Immunizations Immunization Date Immunization Notes Care Provider Fa cility 10-17-2022 influenza virus vacc ine, unspecified formulation Tiera Spangler GERIATRIC SOCIAL WORKER.SERVICE AND REPAIR SUPERVISOR Work Phone: [facility] Payers Date Payer Category Payer Private Health Insurance [facility] AARP SUPPLEMENT [id number] 2018-Present [phone] [address] [place] [address] Indemnity [id number] 2018 Private Health Insurance [facility] AARP SUPPLEMENT [id number] 2018-Present [phone] [address] [place] [address] Indemnity [id number] 2008 Medicare MEDICARE MEDICAR E A AND B [id number] 2008-Present [phone] [place] [address] Medicare [id number] 2008 Medicare MEDICARE MEDICAR E A AND B [id number] 2008-Present [phone] [place] [address] Medicare [id number] 1959 Medicare [id number] 1959 Unknown [id number] 1943 Unknown [id number] 1943 Unknown [id number] 1943 Unknown [id number] 1943 Unknown [id number] 1943 Unknown [id number] 1943 Unknown [id number] 1943 Unknown [id number] 1943 Unknown [id number] 1943 Unknown [id number] 1943 Unknown [id number] Social History Date Type Detail Facility Start: 11-12-2019 End: 01-10-2023 Tobacco smoking status NHIS Never smoked tobacco [facility] Start: 11-12-2019 End: 01-10-2023 Tobacco use and exposure Smokeless tobacco non-user [facility] Start: 05-03-2022 End: 06-13-2023 Alcohol intake Lifetime non-drinker (finding) [facility] Start: 11-12-2019 History SDOH Alcohol Frequency 1 [facility] Start: 1945 Sex Assigned At Not on file [facility] Start: 04-23-2022 End: 05-03-2022 Exposure to SARS-CoV-2 (event) Not sure [facility] Start: 11-12-2019 End: 11-03-2020 History of Social function [facility] Work Phone: Start: 11-12-2019 End: 11-03-2020 Alcohol Use Disorder Identification Test - Consumption [AUDIT-C] [facility] Work Phone: How often to you hav e a drink containing alcohol? Never [facility] Work Phone: Average Number of Drinks Not on file [facility] Clinical Notes 05-03-2022 to 11-15-2023 Telephone Encounter - Brigitte Quinones OCCA - 11/15/2023 11:50 AM ESTTelephone Encounter - Candace Veliz - 11/06/2023 4:21 PM ESTTelephone Encounter - Akshat Schaeffer - 10/23/2023 10:02 AM EST Note Date & Type Note Facility 11-15-2023 Miscellaneous Notes Formattin g of this note might be different from the original. Contacted patient to advise her of the message below from Tiera Spangler APRN, CNP. She agreed with plan as stated below and will mostly likely get it done today. Please remind patient she is due for nonfasting labs at [facility]. I sent order last week. EFE Mckeon documented in this encounter [facility] 11-06-2023 Miscellaneous Notes Formattin g of this note might be different from the original. Took a call from Erika who works at [facility]. Erika was calling with some critical lab values for Tiera Spangler. Took the following message over phone: Critical BUN of 117. Patient in question was verified using full name and date of . Candace Veliz November 06, 2023 4:24 PM documented in this encounter [facility] 10-23-2023 Miscellaneous Notes Formattin g of this note might be different from the original. I called the Medical Records department at [facility]. My call went to [employer]. I did not leave a message. I will try to call back @ [phone], Medical Records press 2, then 2. kAshat Schaeffer ----- Message from Tiera Spangler APRN.CNP sent at 10/23/2023 8:57 AM EST ----- Please call [facility] and have repeat BUN and creatinine faxed over Tiera Spangler APRN.CNP documented in this encounter [facility] 10-10-2023 Miscellaneous Notes Formattin g of this note might be different from the original. Called pt to review labs Results not fully available to me from outside lab Would like to review BUN 124 Any med changes? How is BP? No answer, LMTCB Tiera Spangler APRN.CNP Patient s identity has been confirmed by name and birthdate: Yes Call received from Lela at [facility] to report a critical value for BUN with a result of 124. Tiera Spangler APRN CNP was notified of the result at 2:46PM. Liban Zuñiga, RN documented in this encounter [facility] 10-09-2023 Miscellaneous Notes Formattin g of this note might be different from the original. The requested document has been faxed to [phone] . Received a fax confirmation of OK on 10/09/23. Akshat Schaeffer Varsha Richa is calling Tiera Spangler APRN.SERVICE AND REPAIR SUPERVISOR today needs labs ordered and faxed over to [facility]. F: [phone] No chief complaint on file. Patient has been identified by name and birthdate. Duration of symptoms: N/A Person calling: self Call patient at: at home [phone] (home) [phone] (cell) Was an appointment scheduled: No Closing statement: Results or non-symptom based questions: Thank you for calling [facility], your call will be returned within the next business day. Elva Beckford documented in this encounter [facility] 07-20-2023 Miscellaneous Notes Formattin g of this note might be different from the original. That is fine Please send req for RFP in 1-2 weeks after starting increase Tiera Spangler APRN.CNP Varsha Nieves is calling Tiera Spangler APRN.CNP today stating that her PCP wants to increase her kerendia from 10mg to 20 mg. Needs an ok from Tiera. Please give a call back. No chief complaint on file. Patient has been identified by name and birthdate. Duration of symptoms: N/A Person calling: self Call patient at: at home [phone] (home) [phone] (cell) Was an appointment scheduled: No Closing statement: Results or non-symptom based questions: Thank you for calling [facility], your call will be returned within the next business day. Elva Beckford documented in this encounter [facility] 06-13-2023 Note HNO ID: [id number] Author: Tiera Spangler APRN.SERVICE AND REPAIR SUPERVISOR Service: ? Author Type: Nurse Practitioner Type: Progress Notes Filed: 06/13/2023 3:15 PM Note Text: Pt is a 77 yo female here for follow up of CKD stage 4 in the setting of proteinuria (non-nephrotic range), DM and HTN. Last OV 12/2022. She remains on lokelma for high K. Last cardiology appt last week. She takes torsemide 20mg every day and was instructed to take 40mg every day for increasing weights or edema. She took 40mg yesterday and had increased urination and she doesn't want that daily. Swelling much better in the morning. And it was much better today. Wears compression hose at times. Baseline Scr 2 She reports last lab 03/2023-K was just a bit above 5 per pt Home Bps 105/59 119/56 138/64 103/56 114/47 147/66 130/49 124/57 PAST MEDICAL HISTORY Diagnosis Date Diabetes mellitus (HCC) 1977 HTN (hypertension) Uterine cancer (HCC) 1971 hysterectomy General: Negative for weight loss, night sweats, fever, and fatigue Head/Neck: Negative for metallic or bitter taste Cardiac: Negative for syncope, palpitations, lightheadedness, dizziness, and chest pain or pressure Vascular: Positive for edema; Pulmonary: Negative for dyspnea, and cough GastroIntestinal: Positive for diarrhea; Negative for nausea, loss of appetite, emesis, constipation, and abdominal pain Genito-Urinary: Negative for pink or red urine, pain with urination, groin pain, flank pain, and decreased urine Hematology: Negative for easy bruising Other: Negative for daytime somnolence Creatinine Date Value Ref Range Status 01/10/2023 2.00 (H) 0.58 - 0.96 mg/dL Final 05/03/2022 1.99 (H) 0.58 - 0.96 mg/dL Final 12/21/2021 2.02 (H) 0.58 - 0.96 mg/dL Final Potassium Date Value Ref Range Status 01/10/2023 4.9 3.7 - 5.1 mmol/L Final 05/03/2022 5.7 (H) 3.7 - 5.1 mmol/L Final 12/21/2021 5.4 (H) 3.7 - 5.1 mmol/L Final Exam BP 130/83 Pulse 80 Ht 162.6 cm (5' 4 ) Wt 88.5 kg (195 lb) BMI 33.47 kg/m? General: NAD, alert Skin: Color, texture and turgor normal. No rashes or lesions Oropharynx: Lips, mucosa and throat normal Neck: No carotid bruits, adenopathy. Supple. No JVD Lungs: CTA bilaterally Heart: RRR without murmur or rub Abdomen: Soft, nontender. BS X 4, No organomegaly. No bruit Extremities: No edema, no asterixis BP - standardized method Pulse 1 BP #1: 131/82 Pulse #1: 80 beats/min 2 BP #2 : 126/84 Pulse #2 : 82 beats/min 3 BP #3 : 132/84 Pulse #3 : 80 beats/min Average Average BP: 130/83 Average Pulse: 80 beats/min Orthostatic vitals Supine Sitting Standing Standing BP : 141/78 Standing pulse : 73 BP cuff location BP cuff location: Left upper arm BP cuff size BP cuff size: large adult Comments for BP values First BP (right) First BP (left) Impression/plan CKD stage 4-proteinuric, in the setting of HTN and DM-Scr baseline ~ 1.8-2.2-has been stable. Will have labs from 03/2023 faxed over (she doesn't want to do labs here). She is not using NSAIDs. HTN-well controlled on current regimen. Volume stable. Reviewed to take 40mg torsemide prn weight gain and edema otherwise take 20mg every day. Hyperkalemia-now on lokelma per cardiology-per pt last K stable as noted above. Have labs from 03/2023 faxed over. Vitamin D deficiency-on supplement 4000U D 3-follow labs DM-uncontrolled on last lab. She follows in [place], [place]. Continue endo follow up Plan Have labs faxed over from [facility] F/U 4 months Tiera Spangler APRN.SERVICE AND REPAIR SUPERVISOR [facility] [place] 06-13-2023 History of Presen t illness Narrative Pt is a 77 yo female here for follow up of CKD stage 4 in the setting of proteinuria (non-nephrotic range), DM and HTN. Last OV 12/2022. She remains on lokelma for high K. Last cardiology appt last week. She takes torsemide 20mg every day and was instructed to take 40mg every day for increasing weights or edema. She took 40mg yesterday and had increased urination and she doesn't want that daily. Swelling much better in the morning. And it was much better today. Wears compression hose at times. Baseline Scr 2 She reports last lab 03/2023-K was just a bit above 5 per pt Home Bps 105/59 119/56 138/64 103/56 114/47 147/66 130/49 124/57 PAST MEDICAL HISTORY Diagnosis Date Diabetes mellitus (HCC) 1977 HTN (hypertension) Uterine cancer (HCC) 1971 hysterectomy General: Negative for weight loss, night sweats, fever, and fatigue Head/Neck: Negative for metallic or bitter taste Cardiac: Negative for syncope, palpitations, lightheadedness, dizziness, and chest pain or pressure Vascular: Positive for edema; Pulmonary: Negative for dyspnea, and cough GastroIntestinal: Positive for diarrhea; Negative for nausea, loss of appetite, emesis, constipation, and abdominal pain Genito-Urinary: Negative for pink or red urine, pain with urination, groin pain, flank pain, and decreased urine Hematology: Negative for easy bruising Other: Negative for daytime somnolence Creatinine Date Value Ref Range Status 01/10/2023 2.00 (H) 0.58 - 0.96 mg/dL Final 05/03/2022 1.99 (H) 0.58 - 0.96 mg/dL Final 12/21/2021 2.02 (H) 0.58 - 0.96 mg/dL Final Potassium Date Value Ref Range Status 01/10/2023 4.9 3.7 - 5.1 mmol/L Final 05/03/2022 5.7 (H) 3.7 - 5.1 mmol/L Final 12/21/2021 5.4 (H) 3.7 - 5.1 mmol/L Final Exam BP 130/83 Pulse 80 Ht 162.6 cm (5' 4 ) Wt 88.5 kg (195 lb) BMI 33.47 kg/m General: NAD, alert Skin: Color, texture and turgor normal. No rashes or lesions Oropharynx: Lips, mucosa and throat normal Neck: No carotid bruits, adenopathy. Supple. No JVD Lungs: CTA bilaterally Heart: RRR without murmur or rub Abdomen: Soft, nontender. BS X 4, No organomegaly. No bruit Extremities: No edema, no asterixis BP - standardized method Pulse 1 BP #1: 131/82 Pulse #1: 80 beats/min 2 BP #2 : 126/84 Pulse #2 : 82 beats/min 3 BP #3 : 132/84 Pulse #3 : 80 beats/min Average Average BP: 130/83 Average Pulse: 80 beats/min Orthostatic vitals Supine Sitting Standing Standing BP : 141/78 Standing pulse : 73 BP cuff location BP cuff location: Left upper arm BP cuff size BP cuff size: large adult Comments for BP values First BP (right) First BP (left) Impression/plan CKD stage 4-proteinuric, in the setting of HTN and DM-Scr baseline ~ 1.8-2.2-has been stable. Will have labs from 03/2023 faxed over (she doesn't want to do labs here). She is not using NSAIDs. HTN-well controlled on current regimen. Volume stable. Reviewed to take 40mg torsemide prn weight gain and edema otherwise take 20mg every day. Hyperkalemia-now on lokelma per cardiology-per pt last K stable as noted above. Have labs from 03/2023 faxed over. Vitamin D deficiency-on supplement 4000U D 3-follow labs DM-uncontrolled on last lab. She follows in [place], [place]. Continue endo follow up Plan Have labs faxed over from [facility] F/U 4 months Tiera Spangler APRN.SERVICE AND REPAIR SUPERVISOR documented in this encounter [facility] 01-10-2023 Note HNO ID: [id number] Author: Tiera Spangler APRN.SERVICE AND REPAIR SUPERVISOR Service: ? Author Type: Nurse Practitioner Type: Progress Notes Filed: 01/10/2023 11:31 AM Note Text: Pt is a 77 yo female here for follow up of CKD stage 4 in the setting of proteinuria (non-nephrotic range), DM and HTN. Last OV 04/2022. Kayexalate powder restarted after that visit. Cardiology has changed it to [id number] will run out. She has no new complaints Home BPs 150/74 125/68 111/41 94/48 159/60 117/54 136/55 134/50 136/63 122/61 PAST MEDICAL HISTORY Diagnosis Date Diabetes mellitus (HCC) 1977 HTN (hypertension) Uterine cancer (HCC) 1971 hysterectomy General: Negative for weight loss, night sweats, fever, and fatigue Head/Neck: Negative for metallic or bitter taste Cardiac: Negative for syncope, palpitations, lightheadedness, dizziness, and chest pain or pressure Vascular: Negative for edema Pulmonary: Negative for dyspnea, and cough GastroIntestinal: Negative for nausea, loss of appetite, emesis, diarrhea, constipation, and abdominal pain Genito-Urinary: Negative for pink or red urine, pain with urination, groin pain, flank pain, and decreased urine Hematology: Negative for easy bruising Other: Negative for daytime somnolence Creatinine Date Value Ref Range Status 05/03/2022 1.99 (H) 0.58 - 0.96 mg/dL Final 12/21/2021 2.02 (H) 0.58 - 0.96 mg/dL Final 12/06/2021 2.25 (H) 0.58 - 0.96 mg/dL Final Potassium Date Value Ref Range Status 05/03/2022 5.7 (H) 3.7 - 5.1 mmol/L Final 12/21/2021 5.4 (H) 3.7 - 5.1 mmol/L Final 12/06/2021 5.7 (H) 3.7 - 5.1 mmol/L Final Exam General: NAD, alert Skin: Color, texture and turgor normal. No rashes or lesions Oropharynx: Lips, mucosa and throat normal Neck: No carotid bruits, adenopathy. Supple. No JVD Lungs: CTA bilaterally Heart: RRR, + murmur Abdomen: Soft, nontender. BS X 4, No organomegaly. No bruit Extremities: No edema, no asterixis BP - standardized method Pulse 1 2 3 Average Average BP: 130/81 Average Pulse: 76 beats/min Orthostatic vitals Supine Sitting Standing Standing BP : 123/80 Standing pulse : 74 BP cuff location BP cuff location: Left upper arm BP cuff size BP cuff size: large adult Comments for BP values Comments for BP values: only one BP, machine pt movement error. pt seen not moving First BP (right) First BP (left) Impression/plan CKD stage 4-proteinuric, in the setting of HTN and DM-Scr baseline ~ 1.8-2.2-has been stable. Update-she is not using NSAIDs. Stable. HTN-well controlled at home as well as here-she sees cardiology [id number] and her BPs are controlled there. Hyperkalemia-now on lokelma per cardiology-has samples but will run out. Rx for 30 day free given with coupon. Will send to specialty pharmacy as well. Call cardiology to see if they can continue to sample it. Hx of diarrhea on veltassa. I had previously avoided lokelma given CHF hx but she is tolerating it. Vitamin D deficiency-on supplement 4000U D 3-update labs DM-uncontrolled on last lab. She follows in [place], [place]. Last A1C 8.5-continue endo follow up Heme-Hgb WNL Plan Labs Continue lokelma 10gm daily 30 day free coupon given to augment samples She will let me know if cardiology cannot sample-may need to go to specialty pharmacy F/U 4 months Tiera Spangler APRN.DORINA [facility] [place] 01-10-2023 Miscellaneous Notes Addended by: TIERA SPANGLER on: 01/10/2023 11:34 AM Modules accepted: Orders documented in this encounter [facility] 01-10-2023 History of Presen t illness Narrative Pt is a 77 yo female here for follow up of CKD stage 4 in the setting of proteinuria (non-nephrotic range), DM and HTN. Last OV 04/2022. Kayexalate powder restarted after that visit. Cardiology has changed it to [id number] will run out. She has no new complaints Home BPs 150/74 125/68 111/41 94/48 159/60 117/54 136/55 134/50 136/63 122/61 PAST MEDICAL HISTORY Diagnosis Date Diabetes mellitus (HCC) 1977 HTN (hypertension) Uterine cancer (HCC) 1971 hysterectomy General: Negative for weight loss, night sweats, fever, and fatigue Head/Neck: Negative for metallic or bitter taste Cardiac: Negative for syncope, palpitations, lightheadedness, dizziness, and chest pain or pressure Vascular: Negative for edema Pulmonary: Negative for dyspnea, and cough GastroIntestinal: Negative for nausea, loss of appetite, emesis, diarrhea, constipation, and abdominal pain Genito-Urinary: Negative for pink or red urine, pain with urination, groin pain, flank pain, and decreased urine Hematology: Negative for easy bruising Other: Negative for daytime somnolence Creatinine Date Value Ref Range Status 05/03/2022 1.99 (H) 0.58 - 0.96 mg/dL Final 12/21/2021 2.02 (H) 0.58 - 0.96 mg/dL Final 12/06/2021 2.25 (H) 0.58 - 0.96 mg/dL Final Potassium Date Value Ref Range Status 05/03/2022 5.7 (H) 3.7 - 5.1 mmol/L Final 12/21/2021 5.4 (H) 3.7 - 5.1 mmol/L Final 12/06/2021 5.7 (H) 3.7 - 5.1 mmol/L Final Exam General: NAD, alert Skin: Color, texture and turgor normal. No rashes or lesions Oropharynx: Lips, mucosa and throat normal Neck: No carotid bruits, adenopathy. Supple. No JVD Lungs: CTA bilaterally Heart: RRR, + murmur Abdomen: Soft, nontender. BS X 4, No organomegaly. No bruit Extremities: No edema, no asterixis BP - standardized method Pulse 1 2 3 Average Average BP: 130/81 Average Pulse: 76 beats/min Orthostatic vitals Supine Sitting Standing Standing BP : 123/80 Standing pulse : 74 BP cuff location BP cuff location: Left upper arm BP cuff size BP cuff size: large adult Comments for BP values Comments for BP values: only one BP, machine pt movement error. pt seen not moving First BP (right) First BP (left) Impression/plan CKD stage 4-proteinuric, in the setting of HTN and DM-Scr baseline ~ 1.8-2.2-has been stable. Update-she is not using NSAIDs. Stable. HTN-well controlled at home as well as here-she sees cardiology [id number] and her BPs are controlled there. Hyperkalemia-now on lokelma per cardiology-has samples but will run out. Rx for 30 day free given with coupon. Will send to specialty pharmacy as well. Call cardiology to see if they can continue to sample it. Hx of diarrhea on veltassa. I had previously avoided lokelma given CHF hx but she is tolerating it. Vitamin D deficiency-on supplement 4000U D 3-update labs DM-uncontrolled on last lab. She follows in [place], [place]. Last A1C 8.5-continue endo follow up Heme-Hgb WNL Plan Labs Continue lokelma 10gm daily 30 day free coupon given to augment samples She will let me know if cardiology cannot sample-may need to go to specialty pharmacy F/U 4 months Tiear Spangler APRN.DORINA documented in this encounter [facility] 05-17-2022 Miscellaneous Notes Received a page from lab at [place] regarding critical lab results. Critical Glucose of 46. Sodium 142 K 4.6 Chloride 106 CO2 29.1 BUN 65.0 Creatinine 2.04mg/dL (creatinine was 1.99mg/dL on 05/03/2022 in epic) Calcium 8.8 Albumin 3.5 Phos 4.2 Asked the lab to fax us the results. Called patient, she had she was having low blood sugars this AM. She has a Freestyle Cynthia, she just checked her blood sugar was 90. She is aware of hypoglycemia, felt symptoms this AM, after her lab work she had something to eat. She will continue to monitor her blood sugars. Marylu Headley DO May 17, 2022, 1:16 PM documented in this encounter [facility] 05-04-2022 Miscellaneous Notes The requested document has been faxed to [phone]. Received a fax confirmation of [place] on 05-04-22. Request for Renal Panel placed in outgoing mail as of 05-04-22. Akshat Schaeffer Called pt to review labs Scr is stable Hgb is stable Lipids stable-TG elevated (nonfasting)-will fax labs to Dr Norton per her request K 5.7-start kayexalate powder 15gm on Monday, Mon and Monday Labs in 1-2 weeks-will mail req She is agreeable Tiera Spangler APRN.SERVICE AND REPAIR SUPERVISOR documented in this encounter [facility] 05-03-2022 History of Presen t illness Narrative Pt is a 76 yo female here for follow up of CKD stage 4 in the setting of proteinuria (non-nephrotic range), DM and HTN. Last OV 11/2021. She is on kayexalate powder for hyperkalemia---PT IS NOT TAKING THIS Cardiology has increased entresto and added Kerendia. Home Bps 137/78 141/64 113/57 130/52 126/69 136/60 123/55 144/57 138/85 Pt feels well. No complaints. PAST MEDICAL HISTORY Diagnosis Date Diabetes mellitus (HCC) 1977 HTN (hypertension) Uterine cancer (HCC) 1971 hysterectomy General: Negative for weight loss, night sweats, fever, and fatigue Head/Neck: Negative for metallic or bitter taste Cardiac: Negative for syncope, palpitations, lightheadedness, dizziness, and chest pain or pressure Vascular: Negative for edema Pulmonary: Negative for dyspnea, and cough GastroIntestinal: Negative for nausea, loss of appetite, emesis, diarrhea, constipation, and abdominal pain Genito-Urinary: Negative for pink or red urine, pain with urination, groin pain, flank pain, and decreased urine Hematology: Negative for easy bruising Other: Negative for daytime somnolence Creatinine Date Value Ref Range Status 12/21/2021 2.02 (H) 0.58 - 0.96 mg/dL Final 12/06/2021 2.25 (H) 0.58 - 0.96 mg/dL Final 08/16/2021 1.91 (H) 0.58 - 0.96 mg/dL Final Potassium Date Value Ref Range Status 12/21/2021 5.4 (H) 3.7 - 5.1 mmol/L Final 12/06/2021 5.7 (H) 3.7 - 5.1 mmol/L Final 08/16/2021 4.3 3.7 - 5.1 mmol/L Final 01/05/22 Na 139 K 5.0 Chloride 102 Bicarbonate 27.1 BUN 88 Cr 2.47 Glucose 242 Ca 9.8 Phos 5.2 Albumin 3.8 01/19/2022 Na 142 K 4.9 BUN 68 Scr 2.1 02/23/2022 Scr 2.15 K 4.9 Exam General: NAD, alert Skin: Color, texture and turgor normal. No rashes or lesions Oropharynx: Lips, mucosa and throat normal Neck: No carotid bruits, adenopathy. Supple. No JVD Lungs: CTA bilaterally Heart: RRR, + murmur Abdomen: Soft, nontender. BS X 4 Extremities: No edema Impression/plan CKD stage 4-proteinuric, in the setting of HTN and DM-Scr baseline ~ 1.8-2.2-2.1 12/2021. Appears stable. Has had entresto increased and Kerendia started-update labs. HTN-well controlled at home-she sees cardiology [id number] and her BPs are controlled there. Raarywpjgpjr-ubqhznxdltra-ed longer on treatment. Didn't tolerate veltassa and avoiding lokelma given CHF-update labs Vitamin D deficiency-on supplement 4000U D 3-update labs DM-uncontrolled on last lab. She follows in [place], [place]. Last A1C 8.9-continue endo follow up Plan Labs Cardiology has sent lab request for add ons Will have faxed to Dr Norton [phone] F/U 4 months Tiera Spangler APRN.CNP documented in this encounter [facility] Evaluation note Diagnosis Benign hypertension with chronic kidney disease, stage IV (HCC)- Primary Benign hypertensive kidney disease with chronic kidney disease stage I through stage IV, or unspecified CKD (chronic kidney disease) stage 4, GFR 15-29 ml/min (HCC) Chronic kidney disease, Stage IV (severe) Proteinuria, unspecified type Hyperkalemia Hyperpotassemia 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, unspecified whether alf insulin use (HCC) Vitamin D deficiency Unspecified vitamin D deficiency Chronic combined systolic and diastolic congestive heart failure (HCC) Chronic combined systolic and diastolic heart failure [facility] Diagnosis Benign hypertension with chronic kidney disease, stage IV (HCC)- Primary Benign hypertensive kidney disease with chronic kidney disease stage I through stage IV, or unspecified CKD (chronic kidney disease) stage 4, GFR 15-29 ml/min (HCC) Chronic kidney disease, Stage IV (severe) Proteinuria, unspecified type Hyperkalemia Hyperpotassemia 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, unspecified whether alf insulin use (HCC) Vitamin D deficiency Unspecified vitamin D deficiency [facility] Diagnosis Benign hypertension with chronic kidney disease, stage IV (HCC)- Primary Benign hypertensive kidney disease with chronic kidney disease stage I through stage IV, or unspecified CKD (chronic kidney disease) stage 4, GFR 15-29 ml/min (HCC) Chronic kidney disease, Stage IV (severe) Proteinuria, unspecified type Hyperkalemia Hyperpotassemia 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, unspecified whether alf insulin use (HCC) [facility] Diagnosis Benign hypertension with chronic kidney disease, stage IV (HCC)- Primary Benign hypertensive kidney disease with chronic kidney disease stage I through stage IV, or unspecified documented in this encounter [facility] Summary Purpose Family History No Family History Records FoundNo Family History Records FoundNo Family History Records FoundNo Family History Records Found Advance Directives No Advanced Directives Records FoundNo Advanced Directives Records FoundNo Advanced Directives Records FoundNo Advanced Directives Records Found Additional Source Comments Source Comments (unrecognize d section and content) In the event this informatio n is protected by the Federal Confidentiality of Alcohol and Drug Abuse Patient Records regulations: The Federal rules restrict any use of the information to criminally investigate or prosecute any alcohol or drug abuse patient.[facility] the event this information is protected by the Federal Confidentiality of Alcohol and Drug Abuse Patient Records regulations: The Federal rules restrict any use of the information to criminally investigate or prosecute any alcohol or drug abuse patient.[facility] the event this information is protected by the Federal Confidentiality of Alcohol and Drug Abuse Patient Records regulations: The Federal rules restrict any use of the information to criminally investigate or prosecute any alcohol or drug abuse patient.[facility] the event this information is protected by the Federal Confidentiality of Alcohol and Drug Abuse Patient Records regulations: The Federal rules restrict any use of the information to criminally investigate or prosecute any alcohol or drug abuse patient.[facility] the event this information is protected by the Federal Confidentiality of Alcohol and Drug Abuse Patient Records regulations: The Federal rules restrict any use of the information to criminally investigate or prosecute any alcohol or drug abuse patient.[facility] the event this information is protected by the Federal Confidentiality of Alcohol and Drug Abuse Patient Records regulations: The Federal rules restrict any use of the information to criminally investigate or prosecute any alcohol or drug abuse patient.[facility] the event this information is protected by the Federal Confidentiality of Alcohol and Drug Abuse Patient Records regulations: The Federal rules restrict any use of the information to criminally investigate or prosecute any alcohol or drug abuse patient.[facility] the event this information is protected by the Federal Confidentiality of Alcohol and Drug Abuse Patient Records regulations: The Federal rules restrict any use of the information to criminally investigate or prosecute any alcohol or drug abuse patient.[facility] the event this information is protected by the Federal Confidentiality of Alcohol and Drug Abuse Patient Records regulations: The Federal rules restrict any use of the information to criminally investigate or prosecute any alcohol or drug abuse patient.[facility] the event this information is protected by the Federal Confidentiality of Alcohol and Drug Abuse Patient Records regulations: The Federal rules restrict any use of the information to criminally investigate or prosecute any alcohol or drug abuse patient.[facility] the event this information is protected by the Federal Confidentiality of Alcohol and Drug Abuse Patient Records regulations: The Federal rules restrict any use of the information to criminally investigate or prosecute any alcohol or drug abuse patient.[facility] the event this information is protected by the Federal Confidentiality of Alcohol and Drug Abuse Patient Records regulations: The Federal rules restrict any use of the information to criminally investigate or prosecute any alcohol or drug abuse patient.[facility] Reason for Visit (unrecogniz ed section and content) Reason Comments Follow Up Benign hypertension with chronic kidney disease, stage IV - 4 month f/u Reason Comments Results Reason Comments Follow Up Ckd Reason Comments Medication Question Reason Comments Lab Orders Reason Comments Critical Results Reason Comments Patient Update Care Teams (unrecognized sec tion and content) [facility] [employer] [facility] Supervisor Relationship Specialty Start Date End Date Tiera Spangler APRN.SERVICE AND REPAIR SUPERVISOR [address] [place] [address] Primary Staff Physician Nephrology 12/23/21 [employer] [facility] Supervisor Relationship Specialty Start Date End Date Tiera Spangler APRN.SERVICE AND REPAIR SUPERVISOR [address] [place] [address] Primary Staff Physician Nephrology 12/23/21 [facility] Facility Supervisor Relationship Specialty Start Date End Date Tiera Spangler APRN.SERVICE AND REPAIR SUPERVISOR [address] [place] [address] Primary Staff Physician Nephrology 12/23/21 [facility] Facility Supervisor Relationship Specialty Start Date End Date Tiera Spangler APRN.SERVICE AND REPAIR SUPERVISOR [address] [place] [address] Primary Staff Physician Nephrology 12/23/21 [facility] Facility Supervisor Relationship Specialty Start Date End Date Tiera Spangler APRN.SERVICE AND REPAIR SUPERVISOR [address] [place] [address] Primary Staff Physician Nephrology 12/23/21 [facility] Facility Supervisor Relationship Specialty Start Date End Date Tiera Spangler APRN.SERVICE AND REPAIR SUPERVISOR [address] [place] [address] Primary Staff Physician Nephrology 12/23/21 [facility] Facility Supervisor Relationship Specialty Start Date End Date CrysTiera hutchins APRN.SERVICE AND REPAIR SUPERVISOR [address] [facility] [place], [place] [id number] Primary Staff Physician Nephrology 12/23/21 [facility] Facility Supervisor Relationship Specialty Start Date End Date Tiera Spangler APRN.SERVICE AND REPAIR SUPERVISOR [address] [place], [place] [id number] Primary Staff Physician Nephrology 12/23/21 INFORMATION SOURCE (unrecogn ized section and content) DATE CREATED AUTHOR 01/11/2023 [facility] DATE CREATED AUTHOR AUTHOR'S ORGANIZ ATION 05/05/2023 [facility] DATE CREATED AUTHOR AUTHOR'S ORGANIZ ATION 11/29/2023 [facility] DATE CREATED AUTHOR AUTHOR'S ORGANIZ ATION 11/29/2023 [facility] EPIC FOR RECORDS PERTAINING TO PATIENTS WHO ARE OR HAVE BEEN ENROLLED IN A CHEMICAL DEPENDENCY/SUBSTANCEABUSE PROGRAM, SOME INFORMATION MAY BE OMITTED. This clinical summary was aggregated from multiple sources. Caution should be exercised in using it in the provision of clinical care. This summary normalizes information from multiple sources, and as a consequence, information in this document may materially change the coding, format and clinical context of patient data. In addition, data may be omitted in some cases. CLINICAL DECISIONS SHOULD BE BASED ON THE PRIMARY CLINICAL RECORDS. [email or web address] provides no warranty or guarantee of the accuracy or completeness of information in this document.
[2023-12-01 14:00] LABS: Estimated Average Glucose 220 mg/dL; Glycohemoglobin A1C 9.3 % (4.5-6.2)
[2023-12-01 14:13] LABS: Anion Gap 10.1; Carbon Dioxide 27.4 mmol/L (21.0-32.0); Chloride 102 mmol/L (98-107); Creatine Kinase 108 U/L (26-192); Estimated GFR (African America 29 (>=60); Estimated GFR (Non-African Ame 24 (>=60); Potassium 3.5 mmol/L (3.5-5.1); Sodium 136 mmol/L (136-145)
== END 2023-12-01 13:36 | disposition home or self-care (01) ==
LOC: LAB 13:37
PROVIDERS: Visit Provider Internal Medicine
DX: E87.5 Hyperkalemia (principal)
CPT/HCPCS: 36415; 80051; 82550; 82565; 83036; 83880; 84520

== ENCOUNTER 2024-02-05 15:05 | Outpatient (OUT) | payer MEDICARE, SELFPAY ==
--- OUTSIDE RECORDS SUMMARY | 2024-02-05 15:22 | XMS_ITS | CCD ---
Author Name Unknown Address [address] [place] [address] Organization [facility] Care Team Providers Care Lamp Assembler Name Role Phone Crys SEPTIC TANK SETTER.Tiera CAM Unavailable [phone] CRYS, TIERA Sultana Referring Unavailable CRYS, TIERA Sultana Referring Unavailable VALONE, DR PARSONS Primary Care Unavailable NOLAN, JOHAN Attending Unavailable NOLAN, JOHAN Consulting Unavailable JOHAN FRANCISCO Admitting Unavailable JUAN GARRETT Consulting Unavailable AKBAR ., DR SHAHRZAD Laurent Admitting Unavailable VALONE, DR PARSONS Primary Care Unavailable AKBAR ., DR SHAHRZAD Laurent Attending Unavailable AKBAR ., DR SHAHRZAD Laurent Consulting Unavailable PAY ., DR PATEL Consulting Unavailable AHDOOT, JUAN Consulting Unavailable EL, ELLEN Consulting Unavailable VALONE, [...] DR PARSONS Primary Care Unavailable NOLAN, JOHAN Admitting Unavailable JOHAN FRANCISCO Attending Unavailable Crys SEPTIC TANK SETTER.DORINA, Tiera L Unavailable [phone] Crys SEPTIC TANK SETTER.TACKING MACHINE OPERATOR, Tiera L Unavailable [phone] CRYS, TIERA Sultana Attending Unavailable CRYS, TIERA Sultana Attending Unavailable CRYS, TIERA Sultana Referring Unavailable CRYS, TIERA Sultana Attending Unavailable BOSTON ABDI Attending Unavailable MADDISON MENDEZ Attending Unavailable FLORENCE SKINNER Attending Unavailable ISSA NORTON Referring Unavailable BOSTON ABDI Attending Unavailable BOSTON ABDI Attending Unavailable Allergies Allergy Classification Reported Allergen(s) Allergy Type Date of Onset Reaction(s) Facility (14 sources) Acetaminophen / Codeine; Translations: [ACETAMINOPHEN-CO DEINE] Drug Allergy 0 Other: See Comments [facility] (14 sources) benzonatate; Translations: [BENZONATATE] Drug Allergy 0 Vomiting [facility] (14 sources) Cephalexin; Translations: [CEPHALEXIN] Drug Allergy 0 Rash [facility] (14 sources) Ciprofloxacin; Translations: [CIPROFLOXACIN] Drug Allergy 9 Other: See Comments [facility] (14 sources) Clindamycin; Translations: [CLINDAMYCIN] Drug Allergy 9 Other: See Comments [facility] (5 sources) Penicillins; Translations: [PENICILLINS] Drug Allergy 4 Other: See Comments [facility] (9 sources) Penicillins Drug Allergy 4 Other: See Comments [facility] (1 source) benzonatate Drug Allergy 0 [facility] (1 source) Cephalexin Drug Allergy 0 [facility] (1 source) Ciprofloxacin Drug Allergy [facility] (1 source) Clindamycin Drug Allergy [facility] (1 source) Penicillins Drug allergy (disorder) 4 [facility] (1 source) Tylenol-Codeine #3 Drug allergy (disorder) 0 [facility] Medications Completed/Discontinued Medications Medication Drug Class(es) [...] Comment on above: Take 1 capsule by [facility] once daily. insulin glargine,hum.rec.anl og (LANTUS SOLOSTAR [...] Comment on above: Take 1 tablet by [facility] twice daily. 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; Translations: [ENGRAVER MACHINE CURRENT USE OF INSULIN] Onset: 03-28-2023 Episodic Other aftercare (5 sources) Other half-way (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; Translations: [OTH INTERMEDIATE CURRENT DRUG THERAPY] Onset: 09-14-2022 Episodic Other [...] Test Name Value Interpretation Reference Range Facility [facility] 12-26-2023 CNOV Office Visit (MIDMAV ) AVRSHA NIEVES ([id number]) 1945 F Date Time Provider Department 12/26/23 2:30 PM TIERA SPANGLER [facility] During your visit today, we recorded the following information about you: Pulse Blood pressure Weight Height 75/minute 201/69 86.5 kg 1.575 m Tiera Spangler APRN.TACKING MACHINE OPERATOR 12/26/2023 2:31 PM Signed Pt is an 78 yo female here for follow up CKD stage 4 in the setting of proteinuria, DM as well as HTN She was last seen 05/2023. Most recently had issues with increasing BUN/SCr after long haul resp illness She required admission to local hospital-received IV fluids. Started lokelma 10mg every day. On entresto 97/103 mg BID. Back on torsemide 40mg three times a week. Home BPs 132/60 156/64 143/54 122/51 118/44 PAST MEDICAL HISTORY Diagnosis Date Diabetes mellitus (HCC) 1977 HTN (hypertension) Uterine cancer (HCC) 1971 hysterectomy General no fever no weight loss no fatigue no night sweats Head / Neck no metallic or bitter taste Cardiac no chest pain or pressure no palpitations no dizziness no lightheadedness no syncope Vascular no edema Pulmonary no dyspnea on exertion no cough GI no loss of appetite no nausea no emesis no diarrhea no constipation no abdominal pain no decreased urine no pink or red urine no flank pain no groin pain Heme no easy bruising Other no daytime somnolence Creatinine Date Value Ref Range Status 01/10/2023 2.00 (H) 0.58 - 0.96 mg/dL Final 05/03/2022 1.99 (H) 0.58 - 0.96 mg/dL Final 12/21/2021 2.02 (H) 0.58 - 0.96 mg/dL Final Potassium Date Value Ref Range Status 01/10/2023 4.9 3.7 - 5.1 mmol/L Final 05/03/2022 5.7 (H) 3.7 - 5.1 mmol/L Final 12/21/2021 5.4 (H) 3.7 - 5.1 mmol/L Final Lab work from 12/01 obtained Na 136 K 4.6 Chloride 102 Bicarb 27.4 BUN 64 Creatinine 1.96 Exam General: NAD, alert Neck: No carotid bruits, adenopathy. Supple. No JVD Lungs: CTA bilaterally Heart: RRR without murmur or rub Extremities: No edema BP - standardized method Pulse 1 BP #1: 207/71 Pulse #1: 76 beats/min 2 BP #2 : 201/65 Pulse #2 : 76 beats/min 3 BP #3 : 195/70 Pulse #3 : 74 beats/min Average Average BP: 201/69 Average Pulse: 75 beats/min Orthostatic vitals Supine Sitting Standing BP cuff location BP cuff location: Left lower arm BP cuff size BP cuff size: large adult Comments for BP values First BP (right) First BP (left) Impression/plan CKD stage 4-proteinuric, in the setting of HTN and DM-Scr baseline ~ 1.8-2.2-Stable on repeat labs 12/01-no changes. She is on ARB and Kerendia. Is not using NSAIDs. Follow labs HTN-well controlled on current regimen at home Volume stable. Hyperkalemia-now on lokelma per cardiology-her last K stable as noted above. Vitamin D deficiency-on supplement 4000U D 3-follow labs DM-last A1C 8.9. She follows in [place], [place]. Continue endo follow up Plan No changes Labs prior to next follow up Has follow up in [address] Headley. Will keep appt and see me in 6 months Tiera Spangler, SEPTIC TANK SETTER.TACKING MACHINE OPERATOR Allergies As of Date: 12/26/2023 Noted Allergy Reaction ACETAMINOPHEN-CODEINE 11/27/1999 14 - Other: See Comments BENZONATATE 11/27/1999 11 - Vomiting CEPHALEXIN 11/27/1999 2 - Rash CIPROFLOXACIN 11/12/2019 14 - Other: See Comments CLINDAMYCIN 11/12/2019 14 - Other: See Comments PENICILLINS 11/07/2014 14 - Other: See Comments Date Reviewed: 12/26/2023 Reviewed by: Krishna Cox OCCA - Fully Assessed Reason for Visit: Follow Up [171] Primary Visit Diagnosis:Benign hypertension with chronic kidney disease, stage IV (HCC) [I12.9, N18.4] Other Visit Diagnoses:CKD (chronic kidney disease) stage 4, GFR 15-29 ml/min (HCC) [N18.4] Proteinuria, unspecified type [R80.9] Hyperkalemia [E87.5] 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, unspecified whether half-way insulin use (HCC) [E11.22, N18.4] Vitamin D deficiency [E55.9] Order(s):CBC [SQCBC] Order #: [id number] FUTURE CREATININE RANDOM UR [SQUCRR] Order #: [id number] FUTURE PROTEIN RANDOM UR [SQUTPR] Order #: [id number] FUTURE RENAL FUNCTION PANEL [SQRFP] Order #: [id number] FUTURE VITAMIN D 25 HYDROXY [SQVITD] Order #: [id number] FUTURE Prescriptions as of 12/26/2023 - torsemide (DEMADEX) 20 mg tablet Take [...] 10 mg by mouth once daily. - sacubitril (more content not included)... [facility] VAR[facility] ([id number]) 1945 F Date Time Provider Department 12/06/23 MARYLU HEADLEY [facility] During your visit today, we recorded the following information about you: Marylu Headley DO 12/06/2023 8:30 AM Signed Please call [facility] for results of lab work done on Monday12/01/2023. Thank you Raul Hoffman OCCA 12/06/2023 1:28 PM Signed Called and left a vm with [facility] at [phone] to request lab results from 12/01/[address] Headley's request. EFE Potts Diana, DO 12/06/2023 2:42 PM Signed Lab work from 12/01 obtained Na 136 L 3.5 Chloride 102 Bicarb 27.4 BUN 64 Creatinine 1.96 Marylu Headley, December 06, 2023, 2:41 PM Allergies As of Date: 12/06/2023 Noted Allergy Reaction ACETAMINOPHEN-CODEINE 11/27/1999 14 - Other: See Comments BENZONATATE 11/27/1999 11 - Vomiting CEPHALEXIN 11/27/1999 2 - Rash CIPROFLOXACIN 11/12/2019 14 - Other: See Comments CLINDAMYCIN 11/12/2019 14 - Other: See Comments PENICILLINS 11/07/2014 14 - Other: See Comments Date Reviewed: 11/01/2023 Reviewed by: Irina Allen RN - Fully Assessed Reason for Visit: Results [95] Prescriptions as of 12/06/2023 - torsemide (DEMADEX) 20 mg tablet Take [...] once daily. 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/12/2019 Encounter Status:Closed by MARYLU HEADLEY on 12/06/23 [facility] 11-21-2023 [place] Telephone (MIDMAV) VARSHA NIEVES ([id number]) 1945 F Date Time Provider Department 11/21/23 TIERA SPANGLER [facility] During your visit today, we recorded the following information about you: Irina Allen RN 11/21/2023 2:15 PM Signed Patient?s identity has been confirmed by name and birthdate: Yes Call received from Varghese Gillespie at [facility] at 2:08 PM to report a [...] high priority message for critical lab results HELENA Resendiz, RN He said he is FAXING results over to FAX # [phone] Tiera Spangler APRN.DORINA 11/21/2023 2:33 PM Signed [...] is having her drive her to the [place] [facility] Pt was asking if Provider Crys was going to call report / or tell them she was coming? I do not know if that is the plan; but I told pt not to wait and to have her take her there now but I would route this message to the TACKING MACHINE OPERATOR/team Marylu Headley DO 11/28/2023 12:08 PM Signed [...] LLOYD - Fully Assessed Reason for Visit: critcal [...] Encounter Status:Closed by TIERA SPANGLER on 11/21/23 [facility] 11-15-2023 [facility] Telephone (MIDMAV) VARSHA NIEVES ([id number]) 1945 F Date Time Provider Department 11/15/23 TIERA SPANGLER MID[facility]V During your visit today, we recorded the following information about you: Brigitte Quinones OCCA 11/15/2023 11:53 AM Signed Contacted patient to advise her of the message below from Tiera Spangler APRN, CNP. She agreed with plan as stated below and will mostly likely get it done today. Please remind patient she is due for nonfasting labs at [facility]. I sent order last week. EFE Mckeon [...] RN - Fully Assessed Reason for Visit: Patient [...] Status:Closed by BRIGITTE QUINONES on 11/15/23 [facility] [place] Telephone (MIDMAV) VARSHA NIEVES ([id number]) 1945 F Date Time Provider Department 11/15/23 TIERA SPANGLER [facility] During your visit today, we recorded the following information about you: Liban Renee RN 11/15/2023 3:01 PM Signed The [facility] is calling. The pt's BUN from the pt's lab draw was 124. They are faxing the entire panel results to [facility] fax number [phone] for your review. Tiera Spangler APRN.DORINA 11/15/2023 [...] up labs 11/21 BP 118/57 Tiera Spangler APRN.TACKING MACHINE OPERATOR Allergies As of Date: 11/15/2023 Noted Allergy Reaction ACETAMINOPHEN-CODEINE 11/27/1999 14 - Other: See Comments BENZONATATE 11/27/1999 11 - Vomiting CEPHALEXIN 11/27/1999 2 - Rash CIPROFLOXACIN 11/12/2019 14 - Other: See Comments CLINDAMYCIN 11/12/2019 14 - Other: See Comments PENICILLINS 11/07/2014 14 - Other: See Comments Date Reviewed: 11/01/2023 Reviewed by: Irina Allen RN - Fully Assessed Reason for Visit: BUN [...] Status:Closed by LIBAN RENEE [facility] VARSHA NIEVES ([id number]) 1945 F Date Time Provider Department 11/09/23 TIERA SPANGLER [facility] During your visit today, we recorded the following information about you: Brigitte Quinones OCCA 11/09/2023 1:33 PM Signed Faxed lab order for renal function panel to [facility] at [phone] per Tiera Spangler SEPTIC TANK SETTER [facility]. Please fax order for renal panel to [phone] EFE Mckeon Allergies As of Date: 11/09/2023 Noted Allergy Reaction ACETAMINOPHEN-CODEINE 11/27/1999 14 - Other: See Comments BENZONATATE 11/27/1999 11 - Vomiting CEPHALEXIN 11/27/1999 2 - Rash CIPROFLOXACIN 11/12/2019 14 - Other: See Comments CLINDAMYCIN 11/12/2019 14 - Other: See Comments PENICILLINS 11/07/2014 14 - Other: See Comments Date Reviewed: 11/01/2023 Reviewed by: Irina Allen, LLOYD - Fully Assessed Prescriptions as of 11/09/2023 [...] Encounter Status:Closed by BRIGITTE QUINONES on 11/09/23 [facility] ([id number]) 1945 F Date Time Provider Department 11/09/23 [facility] During your visit today, we recorded the following information about you: Viola Saldivar 11/09/2023 9:12 AM Signed [facility] is requesting a signed order showing diagnosis for the Renal Function Panel lab that you ordered for her. The paper that the patient brought in to them doesn't have any diagnosis codes. Please fax over to: [phone] Patient is currently at the hospital to have this done . Patient has been identified by name and birthdate. Duration of symptoms: N/A Person calling: self Call patient at: on cell [phone] (home) Was an appointment scheduled: No Closing statement: Results or non-symptom based questions: Thank you for calling [facility], your call will be returned within the next business day. Tiera Ashton APRN.CNP 11/09/2023 11:42 AM Signed Order faxed Tiera Spangler APRN.CNP Allergies As of Date: 11/09/2023 Noted Allergy [...] Encounter Status:Closed by TIERA SPANGLER on 11/09/23 [facility]06[facility] VARSHA NIEVES ([id number]) 1945 F Date Time Provider Department 11/06/23 TIERA SPANGLER [facility] During your visit today, we recorded the following information about you: Candace Veliz 11/06/2023 4:25 PM Signed Took a call from Erika who works at [facility]. Erika was calling with some critical lab values for Tiera Sapngler. Took the following message over phone: Critical BUN of 117. Patient in question was verified using full name and date of . Candace Veliz November 06, 2023 4:24 PM Tiera Spangler, SEPTIC TANK SETTER.TACKING MACHINE OPERATOR 11/07/2023 3:30 PM Signed Called pt to review labs I have not received full results yet but critical results states BUN 117 No answer LMTCB ARABELLA Larson Jennifer L, APRN.CNP 11/08/2023 11:33 AM Signed Called pt to review labs No answer LMTCB re: below ARABELLA Larson Tina, RN 11/08/2023 12:05 PM Signed The pt called [...] Encounter Status:Closed by CANDACE VELIZ on [facility]06[facility] [place] ([facility]) VARSHA NIEVES ([id number]) 1945 F Date Time Provider Department 10/24/23 TIERA SPANGLER [facility] During your visit today, we recorded the following information about you: Tiera Spangler APRN.DORINA 10/24/2023 11:48 AM Signed Called pt to see if she completed repeat labs She did not She states she didn't receive order She has been ill for 1 week I asked she repeat labs next week once she is feeling better Will have order faxed again to [facility] and mailed to patient Tiera Spangler APRN.Akshat Woodruff 10/24/2023 12:17 PM Signed The requested document has been faxed to [phone]. Received a fax confirmation of [place] on 10-24-23. The order has also been placed in the outgoing mail as well. Akshat Schaeffer Please mail order to patient and fax to [place] as well. [phone] Renal panel Irina Allen, LLOYD 11/01/2023 2:43 PM Signed Pt calling She [...] coughing? Please get back to her on [phone] Pt has an answering machine Akshat Schaeffer 11/01/2023 3:15 PM Signed I called and spoke with Varsha. I informed her of the below message from Tiera Spangler. Varsha agreed with plan as stated below. Akshat Schaeffer Please have her delay her labs [...] mouth once daily. - insulin lispro-aabc (LYUMJEV CINDYPEN) 100 unit/mL insulin pen Inject subcutaneously three [...] Encounter Status:Closed by TIERA SPANGLER on 10/24/23 [facility] 10-23-2023 [place] Telephone (MIDMAV) VARSHA NIEVES ([id number]) 1945 F Date Time Provider Department 10/23/23 TIERA SPANGLERUTAngela During your visit today, we recorded the following information about you: Akshat Schaeffer 10/23/2023 10:01 AM Signed ----- Message from Tiera Spangler APRN.TACKING MACHINE OPERATOR sent at 10/23/2023 8:57 AM EST ----- Please call [facility] and have repeat BUN and creatinine faxed over Tiera Spangler APRN.Akshat Woodruff 10/24/2023 10:15 AM Addendum I called the Medical Records department at [facility]. My call went to voicemail. I did not leave a message. I will try to call back @ [phone], Medical Records press 2, then 1. Akshat Moreno 10/24/2023 10:16 AM Signed I called but did not speak with nor leave a voicemail as it is the same as below. Akshat Moreno 10/24/2023 11:28 AM Signed I called and spoke with the staff at [facility] lab. I informed the staff of the below request and gave the fax number of [phone]. The lab staff told me that they [...] Encounter Status:Closed by AKSHAT SCHAEFFER on 10/23/23 [facility] 10-10-2023 [place] Telephone (MIDMAV) VARSHA NIEVES ([id number]) 1945 F Date Time Provider Department 10/10/23 TIERA SPANGLER [facility] During your visit today, we recorded the following information about you: Liban Zuñiga RN 10/10/2023 2:48 PM Signed Patient?s identity has been confirmed by name and birthdate: Yes Call received from Lela at [facility] to report a critical value for BUN with a result of 124. Tiera Spangler APRN TACKING MACHINE OPERATOR was notified of the result at 2:46PM. LLOYD Roldan Jennifer L, APRN.TACKING MACHINE OPERATOR 10/10/2023 3:08 PM Signed Called pt to [...] Patient will be leaving to go to [place] at 9 AM today. Her brother is in the hospital. She will return home after 3pm. If calling back before 9, please call: [phone] (home); if after 9AM, please use patient's spouse's cell # [phone] (she doesn't have a cell) Tiera Spangler APRN.CNP 10/11/2023 9:49 AM Signed Called pt re: below She feels well 93/44 this morning 93/48 yesterday Next cardiology follow up is Nov 072022 Decrease torsemide to 20mg daily Repeat labs in 1 week-fax order to [phone] Call for any swelling, increased weight or SOB Tiera Spangler APRN.Tiera Pugh APRN.CNP 10/11/2023 9:50 AM Signed Addended by: TIERA SPANGLER on: 10/11/2023 09:50 AM Modules accepted: Akshat Weiss 10/31/2023 11:13 AM Signed I called and spoke with Varsha's Nestor. I informed him that I was calling at the request of Tiera Spangler in order to find out if Varsha had her labs done at [facility] as of yet. Nestor told me that [...] Fully Assessed Reason for Visit: Critical Results [1705] Order(s):torsemide (DEMADEX) 20 mg tabletTake 1 tablet [...] 3 10/11/2023 (more content not included)... [facility] CNPNon 10-09-2023 CNPN Telephone (INTMLN) VARSHA NIEVES ([id number]) 1945 F Date Time Provider Department 10/09/23 TIERA SPANGLER During your visit today, we recorded the following information about you: Elva Beckford 10/09/2023 3:48 PM Signed Varsha Nieves is calling Tiera Spangler APRN.TACKING MACHINE OPERATOR today needs labs ordered and faxed over to [facility]. F: [phone] No chief complaint on file. Patient has been identified by name and birthdate. Duration of symptoms: N/A Person calling: self Call patient at: at home [phone] (home) [phone] (cell) Was an appointment scheduled: No Closing statement: Results or non-symptom based questions: Thank you for calling [facility], your call will be returned within the next business day. Akshat Kaufman 10/09/2023 4:10 PM Signed The requested document has been faxed to [phone] . Received a fax confirmation of [place] [...] Fully Assessed Reason for Visit: Lab Orders [1688] Prescriptions as of 10/09/2023 - insulin lispro-aabc [...] Encounter Status:Closed by AKSHAT SCHAEFFER on 10/09/23 [facility] (INT[facility]) VARSHA NIEVES ([id number]) 1945 F Date Time Provider Department 07/20/23 TIERA SPANGLER INTSHAHEED During your visit today, we recorded the following information about you: Elva Beckford 07/20/2023 10:39 AM Signed Varsha Nieves is calling Tiera Spangler APRN.DORINA today stating that her PCP wants to increase her kerendia from 10mg to 20 mg. Needs an ok from Tiera. Please give a call back. No chief complaint on file. Patient has been identified by name and birthdate. Duration of symptoms: N/A Person calling: self Call patient at: at home [phone] (home) [phone] (cell) Was an appointment scheduled: No Closing statement: Results or non-symptom based questions: Thank you for calling [facility], your call will be returned within the [...] 3:41 PM Addendum Received lab results from [facility]. Scanned and sent via secure email. Copies [...] Fully Assessed Reason for Visit: Medication Question [1478] Prescriptions as of 08/09/2023 - insulin lispro-aabc [...] Encounter Status:Closed by TIERA SPANGLER on 07/20/23 [facility] 06-13-2023 CNOV Office Visit (MIDMAV ) VARSHA NIEVES ([id number]) 1945 F Date Time Provider Department 06/13/23 3:00 PM TIERA SPANGLER [facility] During your visit today, we recorded the following information about you: Pulse Blood pressure Weight Height 80/minute 130/83 88.5 kg 1.626 m Tiera Spangler, SEPTIC TANK SETTER.TACKING MACHINE OPERATOR 06/13/2023 3:15 PM Signed Pt is a 77 yo female here for follow up of CKD stage 4 in the setting of proteinuria (non-nephrotic range), DM and HTN. Last OV 12/2022. She remains on [facility] for high K. Last cardiology appt last [...] DM-uncontrolled on last lab. She follows in [place], [place]. Continue endo follow up Plan Have labs faxed over from [facility] F/U 4 months Tiera Spangler APRN.TACKING MACHINE OPERATOR Allergies As of Date: 06/13/2023 Noted Allergy [...] stage 4 chronic kidney disease, unspecified whether end worker insulin use ([place] [place] [facility] [E11.22, N18.4] Order(s):CBC [SQCBC] Order #: [id number] FUTURE RENAL FUNCTION PANEL [SQRFP] Order #: [id number] FUTURE ALBUMIN/CREAT RATIO RND UR [SQUACR] Order #: [id number] FUTURE PTH INTACT BLD [SQPTHI] Order #: [id number] FUTURE VITAMIN D 25 HYDROXY [SQVITD] Order #: [id number] FUTURE (more content not included)... Normal [facility] BNPon 04-26-2023 Natriuretic peptide B (Bld) [Mass/Vol] 775.0 pg/mL Normal <=1,800.0 [facility] Comment on above: Performed By: #### C BC #### [facility] [address] [place] [address] Dr. Elaina Garnett BUNon 04-26-2023 Urea nitrogen [Mass/Vol] 68.0 mg/dL Critically high 7.0-18.0 [facility] Comment on above: Performed By: #### R SPLUS #### [facility] [address] [address] Dr. Elaina Garnett CBC AUTO DIFFon 04-26-2023 BASO # 0.1 103/ul Normal 0.0-0.1 [facility] Comment on above: Performed By: #### C BC #### [facility] [address] [address] Dr. Elaina Garnett Basophils/100 WBC (Bld) 1.0 % Normal 0.2-2.0 [facility] Comment on above: Performed By: #### C BC #### [facility] [address] [address] Dr. Elaina Garnett EO # 0.3 103/ul Normal 0.0-0.7 [facility] Comment on above: Performed By: #### C BC #### [facility] [address] [address] Dr. Elaina Garnett Eosinophils/100 WBC (Bld) 2.8 % Normal 0.9-7.0 [facility] Comment on above: Performed By: #### C BC #### [facility] [address] [address] Dr. Elaina Garnett Erythrocyte distribution width (RBC) [Ratio] 13.9 % Normal 11.0-15.0 [facility] Comment on above: Performed By: #### C BC #### [facility] [address] [address] Dr. Elaina Garnett Hematocrit (Bld) [Volume fraction] 36.8 % Normal 36.0-48.0 [facility] Comment on above: Performed By: #### C BC #### [facility] [address] [place] [address] Dr. Elaina Garnett Hemoglobin (Bld) [Mass/Vol] 12.1 g/dL Normal 12.0-16.0 [facility] Comment on above: Performed By: #### C BC #### [facility] [address] [address] Dr. Elaina Garnett IG # 0.03 10e3/ul Normal 0.00-0.03 [facility] Comment on above: Performed By: #### C BC #### [facility] [address] [address] Dr. Elaina Garnett IG % 0.3 % Normal 0.0-0.5 [facility] Comment on above: Performed By: #### C BC #### [facility] [address] [place] [address] Dr. Elaina Garnett LYMPH # 2.5 103/ul Normal 1.2-3.8 [facility] Comment on above: Performed By: #### C BC #### [facility] [address] [address] Dr. Elaina Garnett Lymphocytes/100 WBC (Bld) 27.7 % Normal 20.5-60.0 [facility] Comment on above: Performed By: #### C BC #### [facility] [address] [address] Dr. Elaina Garnett MANUAL DIFF REQ NO Normal [facility] Comment on above: Performed By: #### C BC #### [facility] [address] [address] Dr. Elaina Garnett MCH (RBC) [Entitic mass] 29.7 pg Normal 26.7-34.0 [facility] Comment on above: Performed By: #### C BC #### [facility] [address] [address] Dr. Elaina Granett MCHC (RBC) [Mass/Vol] 32.9 g/dL Normal 29.9-35.2 [facility] Comment on above: Performed By: #### C BC #### [facility] [address] [address] [address] Elaina Garnett MCV (RBC) [Entitic vol] 90.4 fL Normal 81.0-99.0 [facility] Comment on above: Performed By: #### C BC #### [facility] [address] [address] [address] Elaina Garnett MONO # 1.0 103/ul Critically high 0.3-0.8 [facility] Comment on above: Performed By: #### C BC #### [facility] [address] [place] [address] Dr. Elaina Garnett Monocytes/100 WBC (Bld) 10.7 % Normal 1.7-12.0 [facility] Comment on above: Performed By: #### C BC #### [facility] [address] [address] Dr. Elaina Garnett NEUT # 5.1 103/ul Normal 1.4-6.5 [facility] Comment on above: Performed By: #### C BC #### [facility] [address] [address] Dr. Elaina Garnett Neutrophils/100 WBC (Bld) 57.5 % Normal 43.0-75.0 [facility] Comment on above: Performed By: #### C BC #### [facility] [address] [address] Dr. Elaina Garnett Platelet mean volume (Bld) [Entitic vol] 9.4 fL Critically low 9.5-13.5 [facility] Comment on above: Performed By: #### C BC #### [facility] [address] [address] Dr. Elaina Garnett PLT 258 103/ul Normal 150-450 [facility] Comment on above: Performed By: #### C BC #### [facility] [address] [place] [address] Dr. Elaina Garnett RBC 4.07 106/ul Critically low 4.20-5.40 [facility] Comment on above: Performed By: #### C BC #### [facility] [address] [place] [address] Dr. Elaina Garnett WBC 8.9 103/ul Normal 4.0-11.0 [facility] Comment on above: Performed By: #### C BC #### [facility] [address] [place] [address] Dr. Elaina Garnett CREATININEon 04-26-2023 Creatinine [Mass/Vol] 1.69 mg/dL Critically high 0.55-1.02 [facility] Comment on above: Performed By: #### C BC #### [facility] [address] [address] Dr. Elaina Garnett EGFR-AF [facility] 35 mL/min/1.73m2 Critically low >=60 [facility] Comment on above: Performed By: #### C BC #### [facility] [address] [address] Dr. Elaina Garnett EGFR-NON AF [facility] 29 mL/min/1.73m2 Critically low >=60 [facility] Comment on above: Performed By: #### C BC #### [facility] [address] [place] [address] Dr. Elaina Garnett ELECTROLYTESon 04-26-2023 Anion gap [Moles/Vol] 13.2 mmol/L Normal [facility] Comment on above: Performed By: #### R SPLUS #### [facility] [address] [place] [address] Dr. Elaina Garnett Chloride [Moles/Vol] 106 mmol/L Normal 98-107 [facility] Comment on above: Performed By: #### R SPLUS #### [facility] [address] [address] Dr. Elaina Garnett CO2 [Moles/Vol] 26.3 mmol/L Normal 21.0-32.0 [facility] Comment on above: Performed By: #### R SPLUS #### [facility] [address] [address] Dr. Elaina Garnett Potassium [Moles/Vol] 5.5 mmol/L Critically high 3.5-5.1 [facility] Comment on above: Performed By: #### R SPLUS #### [facility] [address] [place] [address] Dr. Elaina Garnett Sodium [Moles/Vol] 140 mmol/L Normal 136-145 [facility] Comment on above: Performed By: #### R SPLUS #### [facility] [address] [place] [address] Dr. Elaina Garnett LIVER PROFILEon 04-26-2023 Albumin [Mass/Vol] 3.4 g/dL Normal 3.4-5.0 [facility] Comment on above: Performed By: #### R SPLUS #### [facility] [address] [place] [address] Dr. Elaina Garnett Albumin/Globulin [Mass ratio] 0.9 {ratio} Normal [facility] Comment on above: Performed By: #### R SPLUS #### [facility] [address] [place] [address] Dr. Elaina Garnett ALP [Catalytic activity/Vol] 91 U/L Normal 46-116 [facility] Comment on above: Performed By: #### R SPLUS #### [facility] [address] [address] Dr. Elaina Garnett ALT [Catalytic activity/Vol] 18 U/L Normal 14-59 [facility] Comment on above: Performed By: #### R SPLUS #### [facility] [address] [address] Dr. Elaina Garnett AST [Catalytic activity/Vol] 16 U/L Normal 15-37 [facility] Comment on above: Performed By: #### R SPLUS #### [facility] [address] [place] [address] Dr. Elaina Garnett BILI, CONJUGATED 0.1 mg/dL Normal 0.0-0.2 [facility] Comment on above: Performed By: #### R SPLUS #### [facility] [address] [place] [address] Dr. Elaina Garnett Bilirubin [Mass/Vol] 0.6 mg/dL Normal 0.2-1.0 [facility] Comment on above: Performed By: #### R SPLUS #### [facility] [address] [place] [address] Dr. Elaina Garnett Globulin (S) [Mass/Vol] 4.0 g/dL Normal [facility] Comment on above: Performed By: #### R SPLUS #### [facility] [address] [address] Dr. Elaina Garnett Protein [Mass/Vol] 7.4 g/dL Normal 6.4-8.2 [facility] Comment on above: Performed By: #### R SPLUS #### [facility] [address] [place] [address] Dr. Elaina Garnett ER URINE PROFILEon 3 Bilirubin Ql (U) Negative Normal NEGATIVE [facility] Comment on above: Performed By: #### R SPLUS #### [facility] [address] [address] Dr. Elaina Garnett Clarity (U) CLEAR Normal CLEAR [facility] Comment on above: Performed By: #### R SPLUS #### [facility] [address] [place] [address] Dr. Elaina Garnett Color (U) LT. YELLOW Normal YELLOW [facility] Comment on above: Performed By: #### R SPLUS #### [facility] [address] [place] [address] Dr. Elaina MEEHAN A micrscopic examination will be performed if indicated. Normal [facility] Comment on above: Performed By: #### R SPLUS #### [facility] [address] [address] Dr. Elaina Garnett Glucose Ql (U) Negative Normal NEGATIVE [facility] Comment on above: Performed By: #### R SPLUS #### [facility] [address] [address] Dr. Elaina Garnett Hemoglobin Ql (U) Negative Normal NEGATIVE [facility] Comment on above: Performed By: #### R SPLUS #### [facility] [address] [address] Dr. Elaina Garnett Ketones Ql (U) TRACE Abnormal NEGATIVE [facility] Comment on above: Performed By: #### R SPLUS #### [facility] [address] [place] [address] Dr. Elaina Garnett LEUKOCYTES Negative Normal NEGATIVE [facility] Comment on above: Performed By: #### R SPLUS #### [facility] [address] [address] Dr. Elaina Garnett Nitrite Ql (U) Negative Normal NEGATIVE [facility] Comment on above: Performed By: #### R SPLUS #### [facility] [address] [address] Dr. Elaina Garnett pH (U) 5.0 [pH] Normal 5-9 [facility] Comment on above: Performed By: #### R SPLUS #### [facility] [address] [address] Dr. Elaina Garnett Protein (U) [Mass/Vol] 100 mg/dL Abnormal NEGATIVE/ TRACE [facility] Comment on above: Performed By: #### R SPLUS #### [facility] [address] [address] Dr. Elaina Garnett SPEC GRAVITY 1.020 Normal 1.005-<=1.025 [facility] Comment on above: Performed By: #### R SPLUS #### [facility] [address] [address] Dr. Elaina Garnett UR MICRO IND NOT INDICATED Normal [facility] Comment on above: Performed By: #### R SPLUS #### [facility] [address] [address] Dr. Elaina Garnett Urobilinogen Qn (U) 0.2 {Danny'U}/dL Normal 0.2 - 1. 0 [facility] Comment on above: Performed By: #### R SPLUS #### [facility] [address] [address] Dr. Elaina Garnett RESPIRATORY PANEL PLUSon Adenovirus Not detected Normal NOT DETECTED [facility] Comment on above: Performed By: #### R SPLUS #### [facility] [address] [place] [address] Dr. Elaina Camargo. Parapertusis Not detected Normal NOT DETECTED [facility] Comment on above: Performed By: #### R SPLUS #### [facility] [address] [place] [address] Dr. Elaina Watson Pertussis Not detected Normal NOT DETECTED [facility] Comment on above: Performed By: #### R SPLUS #### [facility] [address] [place] [address] Dr. Elaina Garnett Chlamydia Pneumoniae Not detected Normal NOT DETECTED [facility] Comment on above: Performed By: #### R SPLUS #### [facility] [address] [place] [address] Dr. Elaina Garnett Coronavirus 229E Not detected Normal NOT DETECTED [facility] Comment on above: Performed By: #### R SPLUS #### [facility] [address] [place] [address] Dr. Elaina Garnett Coronavirus HKU1 Not detected Normal NOT DETECTED [facility] Comment on above: Performed By: #### R SPLUS #### [facility] [address] [place] [address] Dr. Elaina Garnett Coronavirus NL63 Not detected Normal NOT DETECTED [facility] Comment on above: Performed By: #### R SPLUS #### [facility] [address] [address] Dr. Elaina Garnett Coronavirus OC43 Not detected Normal NOT DETECTED [facility] Comment on above: Performed By: #### R SPLUS #### [facility] [address] [address] Dr. Elaina Garnett Influenza A H1 Not detected Normal NOT DETECTED [facility] Comment on above: Performed By: #### R SPLUS #### [facility] [address] [address] Dr. Elaina Garnett Influenza A H1 2009 Not detected Normal NOT DETECTED [facility] Comment on above: Performed By: #### R SPLUS #### [facility] [address] [address] [address] Elaina Garnett Influenza A H3 Not detected Normal NOT DETECTED [facility] Comment on above: Performed By: #### R SPLUS #### [facility] [address] [address] [address] Elaina Garnett Influenza B Not detected Normal NOT DETECTED [facility] Comment on above: Performed By: #### R SPLUS #### [facility] [address] [address] Dr. Elaina Garnett Metapneumovirus Not detected Normal NOT DETECTED [facility] Comment on above: Performed By: #### R SPLUS #### [facility] [address] [address] Dr. Elaina Garnett Mycoplas. Pneumoniae Not detected Normal NOT DETECTED [facility] Comment on above: Performed By: #### R SPLUS #### [facility] [address] [address] Dr. Elaina Garnett Parainfluenza 1 Not detected Normal NOT DETECTED [facility] Comment on above: Performed By: #### R SPLUS #### [facility] [address] [address] Dr. Elaina Garnett Parainfluenza 2 Not detected Normal NOT DETECTED [facility] Comment on above: Performed By: #### R SPLUS #### [facility] [address] [place] [address] Dr. Elaina Garnett Parainfluenza 3 Not detected Normal NOT DETECTED [facility] Comment on above: Performed By: #### R SPLUS #### [facility] [address] [address] Dr. Elaina Garnett Parainfluenza 4 Not detected Normal NOT DETECTED [facility] Comment on above: Performed By: #### R SPLUS #### [facility] [address] [address] Dr. Elaina Garnett Rhino/Enterovirus Not detected Normal NOT DETECTED [facility] Comment on above: Performed By: #### R SPLUS #### [facility] [address] [address] Dr. Elaina Garnett RP2 Header 1 RESPIRATORY PANEL: VIRUSES Normal [facility] Comment on above: Performed By: #### R SPLUS #### [facility] [address] [address] Dr. Elaina Garnett RP2 Header 2 RESPIRATORY PANEL: BACTERIA Normal [facility] Comment on above: Performed By: #### R SPLUS #### [facility] [address] [address] Dr. Elaina Garnett RSV Not detected Normal NOT DETECTED [facility] Comment on above: Performed By: #### R SPLUS #### [facility] [address] [address] Dr. Elaina Garnett SARS-CoV-2 (COVID-19) RNA BARB+probe Ql (Unsp spec) Not detected Normal NOT DETECTED [facility] Comment on above: Performed By: #### R SPLUS #### [facility] [address] [address] Dr. Elaina Garnett XR CHEST 1 Von [...] JUAN GARRETT Date: 2023-03-25 23:48 Normal [facility] CARDIAC MIKE ADMITon 023 CK [Catalytic activity/Vol] 219 U/L Critically high 26-192 [facility] Comment on above: Performed By: #### C BC #### [facility] [address] [address] Dr. Elaina Garnett CK.MB [Mass/Vol] 1.21 ng/mL Normal <=3.60 [facility] Comment on above: Performed By: #### C BC #### [facility] [address] [address] Dr. Elaina Garnett HSTROP 17.4 pg/mL Normal 4.0-51.3 [facility] Comment on above: Result Comment: CUT- OFF POINTS HAVE BEEN ESTABLISHED BASED ON THE FOURTH UNIVERSAL DEFINITIONS OF MYOCARDIAL INFARCTION. THE UPPER REFERENCE LIMIT (URL) OF TROPONIN, DEFINED THE 99TH PERCENTILE OF cTnI DISTRIBUTION IN A REFERENCE POPULATION, HAS BEEN CONFIRMED THE DECISION THRESHOLD FOR CT DIAGNOSIS. Performed By: #### C BC #### [facility] [address] [address] Dr. Elaina Garnett TAO 332 ng/mL Critically high 9-82 [facility] Comment on above: Performed By: #### C BC #### [facility] [address] [address] Dr. Elaina Garnett CBC AUTO DIFFon 03-25-2023 BASO # 0.1 103/ul Normal 0.0-0.1 [facility] Comment on above: Performed By: #### C BC #### [facility] [address] [address] Dr. Elaina Garnett Basophils/100 WBC (Bld) 0.6 % Normal 0.2-2.0 [facility] Comment on above: Performed By: #### C BC #### [facility] [address] [address] Dr. Elaina Garnett EO # 0.2 103/ul Normal 0.0-0.7 [facility] Comment on above: Performed By: #### C BC #### [facility] [address] [address] Dr. Elaina Garnett Eosinophils/100 WBC (Bld) 2.0 % Normal 0.9-7.0 [facility] Comment on above: Performed By: #### C BC #### [facility] [address] [address] Dr. Elaina Garnett Erythrocyte distribution width (RBC) [Ratio] 12.9 % Normal 11.0-15.0 [facility] Comment on above: Performed By: #### C BC #### [facility] [address] [address] Dr. Elaina Garnett Hematocrit (Bld) [Volume fraction] 33.6 % Critically low 36.0-48.0 [facility] Comment on above: Performed By: #### C BC #### [facility] [address] [address] Dr. Elaina Garnett Hemoglobin (Bld) [Mass/Vol] 11.3 g/dL Critically low 12.0-16.0 [facility] Comment on above: Performed By: #### C BC #### [facility] [address] [address] Dr. Elaina Garnett IG # 0.04 10e3/ul Critically high 0.00-0.03 [facility] Comment on above: Performed By: #### C BC #### [facility] [address] [address] Dr. Elaina Garnett IG % 0.4 % Normal 0.0-0.5 [facility] Comment on above: Performed By: #### C BC #### [facility] [address] [address] Dr. Elaina Garnett LYMPH # 1.8 103/ul Normal 1.2-3.8 [facility] Comment on above: Performed By: #### C BC #### [facility] [address] [address] Dr. Elaina Garnett Lymphocytes/100 WBC (Bld) 19.5 % Critically low 20.5-60.0 [facility] Comment on above: Performed By: #### C BC #### [facility] [address] [address] Dr. Elaina Garnett MANUAL DIFF REQ NO Normal [facility] Comment on above: Performed By: #### C BC #### [facility] [address] [address] Dr. Elaina Garnett MCH (RBC) [Entitic mass] 30.8 pg Normal 26.7-34.0 [facility] Comment on above: Performed By: #### C BC #### [facility] [address] [address] Dr. Elaina Garnett MCHC (RBC) [Mass/Vol] 33.6 g/dL Normal 29.9-35.2 [facility] Comment on above: Performed By: #### C BC #### [facility] [address] [address] Dr. Elaina Garnett MCV (RBC) [Entitic vol] 91.6 fL Normal 81.0-99.0 [facility] Comment on above: Performed By: #### C BC #### [facility] [address] [address] Dr. Elaina Garnett MONO # 1.9 103/ul Critically high 0.3-0.8 [facility] Comment on above: Performed By: #### C BC #### [facility] [address] [address] Dr. Elaina Garnett Monocytes/100 WBC (Bld) 19.7 % Critically high 1.7-12.0 [facility] Comment on above: Performed By: #### C BC #### [facility] [address] [address] Dr. Elaina Garnett NEUT # 5.4 103/ul Normal 1.4-6.5 [facility] [facility] Comment on above: Performed By: #### C BC #### [facility] [address] [address] Dr. Elaina Garnett Neutrophils/100 WBC (Bld) 57.8 % Normal 43.0-75.0 [facility] Comment on above: Performed By: #### C BC #### [facility] [address] [address] Dr. Elaina Garnett Platelet mean volume (Bld) [Entitic vol] 9.7 fL Normal 9.5-13.5 [facility] Comment on above: Performed By: #### C BC #### [facility] [address] [address] Dr. Elaina Garnett PLT 272 103/ul Normal 150-450 [facility] Comment on above: Performed By: #### C BC #### [facility] [address] [address] Dr. Elaina Garnett RBC 3.67 106/ul Critically low 4.20-5.40 [facility] Comment on above: Performed By: #### C BC #### [facility] [address] [address] [address] Elaina Garnett WBC 9.4 103/ul Normal 4.0-11.0 [facility] Comment on above: Performed By: #### C BC #### [facility] [address] [address] Dr. Elaina Garnett LACTATE/LACTIC ACIDon 2022 Lactate [Moles/Vol] 0.7 mmol/L Normal 0.4-2.0 [facility] Comment on above: Performed By: #### C BC #### [facility] [address] [address] Dr. Elaina Garnett PROF CHEM 8 (BAS METB)on Anion gap [Moles/Vol] 13.5 mmol/L Normal [facility] Comment on above: Performed By: #### C BC #### [facility] [address] [address] Dr. Elaina Garnett Calcium [Mass/Vol] 9.0 mg/dL Normal 8.5-10.1 [facility] Comment on above: Performed By: #### C BC #### [facility] [address] [place] [address] Dr. Elaina Garnett Chloride [Moles/Vol] 109 mmol/L Critically high 98-107 [facility] Comment on above: Performed By: #### C BC #### [facility] [address] [place] [address] Dr. Elaina Garnett CO2 [Moles/Vol] 21.9 mmol/L Normal 21.0-32.0 [facility] Comment on above: Performed By: #### C BC #### [facility] [address] [address] Dr. Elaina Garnett Creatinine [Mass/Vol] 2.03 mg/dL Critically high 0.55-1.02 [facility] Comment on above: Performed By: #### C BC #### [facility] [address] [address] Dr. Elaina Garnett EGFR-AF [facility] 29 mL/min/1.73m2 Critically low >=60 [facility] Comment on above: Performed By: #### C BC #### [facility] [address] [address] [address] Elaina Garnett EGFR-NON AF [facility] 24 mL/min/1.73m2 Critically low >=60 [facility] Comment on above: Performed By: #### C BC #### [facility] [address] [address] [address] Elaina Garnett Glucose [Mass/Vol] 72 mg/dL Critically low 74-106 [facility] Comment on above: Performed By: #### C BC #### [facility] [address] [address] [address] Elaina Garnett Potassium [Moles/Vol] 4.4 mmol/L Normal 3.5-5.1 [facility] Comment on above: Performed By: #### C BC #### [facility] [address] [address] [address] Elaina Garnett Sodium [Moles/Vol] 140 mmol/L Normal 136-145 [facility] Comment on above: Performed By: #### C BC #### [facility] [address] [address] [address] Elaina Garnett Urea nitrogen [Mass/Vol] 70.0 mg/dL Critically high 7.0-18.0 [facility] Comment on above: Performed By: #### C BC #### [facility] [address] [address] [address] Elaina Garnett Urea nitrogen/Creatinine [Mass ratio] 34.5 mg/mg Normal [facility] Comment on above: Performed By: #### C BC #### [facility] [id number] Elaina Garnett 25([facility]3 [facility] 25-hydroxyvitamin D3 [Mass/Vol] 52.1 ng/mL Normal 31.0-80.0 [facility] Comment on above: Order Comment: Speci men Type: BLOOD SPECIMEN Ordering Facility: [facility] Address: [address] [address] Result Comment: Clas sification of 25 [place] Vitamin D status: Deficiency/Insufficiency: < or = 30 ng/ml. Sufficiency/Optimal Levels: 31-80 ng/mL Toxicity: > 100 ng/mL. Test performed by chemiluminescent immunoassay. Performed By: #### 1 989-3 #### [facility] CLIA [id number] [address] [facility] DESK [id number] OF [place] CBC panel Auto (Bld)on 01-10 Erythrocyte distribution width (RBC) [Ratio] 13.3 % Normal 11.5-15.0 [facility] Comment on above: Order Comment: Speci men Type: BLOOD SPECIMEN Ordering Facility: [facility] Address: [address] [address] Performed By: #### 5 8410-2 #### [facility] CLIA [id number] [place] Hematocrit (Bld) [Volume fraction] 39.4 % Normal 36.0-46.0 [facility] Comment on above: Order Comment: Speci men Type: BLOOD SPECIMEN Ordering Facility: [facility] Address: [address] [address] Performed By: #### 5 8410-2 #### [facility] CLIA [id number] [place] Hemoglobin (Bld) [Mass/Vol] 12.5 g/dL Normal 11.5-15.5 [facility] Comment on above: Order Comment: Speci men Type: BLOOD SPECIMEN Ordering Facility: [facility] Address: [address] [address] Performed By: #### 5 8410-2 #### [facility] CLIA [id number] [address] [place] MCH (RBC) [Entitic mass] 29.1 pg Normal 26.0-34.0 [facility] Comment on above: Order Comment: Speci men Type: BLOOD SPECIMEN Ordering Facility: [facility] Address: [address] [address] Performed By: #### 5 8410-2 #### [facility] [place] [id number] [address] [place] MCHC (RBC) [Mass/Vol] 31.7 g/dL Normal 30.5-36.0 [facility] Comment on above: Order Comment: Speci men Type: BLOOD SPECIMEN Ordering Facility: [facility] Address: [address] [address] Performed By: #### 5 8410-2 #### [facility] [place] [id number] [address] [place] [address] [place] MCV (RBC) [Entitic vol] 91.6 fL Normal 80.0-100.0 [facility] Comment on above: Order Comment: Speci men Type: BLOOD SPECIMEN Ordering Facility: [facility] Address: [address] [address] Performed By: #### 5 8410-2 #### [facility] [place] [id number] [place] [address] [place] Nucleated RBC (Bld) [#/Vol] 10*3/uL Normal <0.01 [facility] Comment on above: Order Comment: Speci men Type: BLOOD SPECIMEN Ordering Facility: [facility] Address: [address] [address] Performed By: #### 5 8410-2 #### [facility] [place] [id number] [address] [place] [address] [place] Platelet mean volume (Bld) [Entitic vol] 10.4 fL Normal 9.0-12.7 [facility] Comment on above: Order Comment: Speci men Type: BLOOD SPECIMEN Ordering Facility: [facility] Address: [address] [address] Performed By: #### 5 8410-2 #### [facility] [place] [id number] [address] [place] [address] [place] Platelets (Bld) [#/Vol] 256 10*3/uL Normal 150-400 [facility] Comment on above: Order Comment: Speci men Type: BLOOD SPECIMEN Ordering Facility: [facility] Address: [address] [address] Performed By: #### 5 8410-2 #### [facility] CLIA [id number] [address] [place], [place] [id number] [place] [address] OF [facility] RBC (Bld) [#/Vol] 4.30 10*6/uL Normal 3.90-5.20 [facility] Comment on above: Order Comment: Speci men Type: BLOOD SPECIMEN Ordering Facility: [facility] Address: [address] [address] Performed By: #### 5 8410-2 #### [facility] CLIA [id number] [address] OF [facility] WBC (Bld) [#/Vol] 7.54 10*3/uL Normal 3.70-11.00 [facility] Comment on above: Order Comment: Speci men Type: BLOOD SPECIMEN Ordering Facility: [facility] Address: [address] [address] Performed By: #### 5 8410-2 #### [facility] CLIA [id number] [address] STATES OF [facility] Erythrocyte distribution width (RBC) [Ratio] 13.3 % 11.5 - 15.0 % [facility] Hematocrit (Bld) [Volume fraction] 39.4 % 36.0 - 46.0 % [facility] Hemoglobin (Bld) [Mass/Vol] 12.5 g/dL 11.5 - 15.5 g/dL [facility] MCH (RBC) [Entitic mass] 29.1 pg 26.0 - 34.0 pg [facility] MCHC (RBC) [Mass/Vol] 31.7 g/dL 30.5 - 36.0 g/dL [facility] MCV (RBC) [Entitic vol] 91.6 fL 80.0 - 100.0 fL [facility] Nucleated RBC (Bld) [#/Vol] <0.01 k/uL [facility] Platelet mean volume (Bld) [Entitic vol] 10.4 fL 9.0 - 12.7 fL [facility] Platelets (Bld) [#/Vol] 256 10*3/uL 150 - 400 k/uL [facility] RBC (Bld) [#/Vol] 4.30 10*6/uL 3.90 - 5.2 0 m/uL [facility] WBC (Bld) [#/Vol] 7.54 10*3/uL 3.70 - 11. 00 k/uL [facility] CNOVon 01-10-2023 CNOV Office Visit (MIDMAV ) VARSHA NIEVES ([id number]) 1945 F Date Time Provider Department 01/10/23 11:00 AM TIERA SPANGLER During your visit today, we recorded the following information about you: Pulse Blood pressure Weight Height 76/minute 130/81 86.6 kg 1.626 m Tiera Spangler APRN.TACKING MACHINE OPERATOR 01/10/2023 11:31 AM Signed Pt is a 77 yo female here for follow up of CKD stage 4 in the setting of proteinuria (non-nephrotic range), DM and HTN. Last OV 04/2022. Kayexalate powder restarted after that visit. Cardiology has changed it to fyhruwu-hyuaypn-peu will run out. She has no new [...] home as well as here-she sees cardiology [id number] and her BPs are controlled there. Hyperkalemia-now [...] DM-uncontrolled on last lab. She follows in [place], [place]. Last A1C 8.5-continue endo follow up Heme-Hgb WNL Plan Labs Continue lokelma 10gm daily 30 day free coupon given to augment samples She will let me know if cardiology cannot sample-may need to go to specialty pharmacy F/U 4 months Tiera Spangler APRN.TACKING MACHINE OPERATOR Tiera Spangler APRN.CNP 01/10/2023 11:34 AM Signed Addended [...] stage 4 chronic kidney disease, unspecified whether end worker insulin use ([facility]) [E11.22, N18.4] Vitamin D deficiency [E55.9] Order(s):CBC [SQCBC] Order #: [id number] FUTURE RENAL FUNCTION PANEL [SQRFP] Order #: [id number] FUTURE PTH INTACT BLD [SQPTHI] Order #: [id number] FUTURE VITAMIN D 25 HYDROXY [SQVITD] Order #: [id number] FUTURE CREATININE RANDOM UR [SQ (more content not included)... Normal [facility] Creatinine Unsp time (U) [Ma ss/Vol]on 01-10-2023 Creatinine (U) [Mass/Vol] 24.9 mg/dL Normal 20.0-300.0 [facility] Comment on above: Order Comment: Speci men Type: URINE SPECIMEN Ordering Facility: [facility] Address: [address] [address] Performed By: #### 3 5674-1 #### [facility] CLIA [id number] [address] [place] [address] [place] PTH INTACT BLDon 01-10-2023 Parathyrin.intact [Mass/Vol] 65 pg/mL 15 - 65 pg/mL [facility] PTH-Intact SerPl-mCncon 12-28 Parathyrin.intact [Mass/Vol] 65 pg/mL Normal 15-65 [facility] Comment on above: Order Comment: Speci men Type: BLOOD SPECIMEN Ordering Facility: [facility] Address: [address] [place] [address] Performed By: #### 2 731-8 #### [facility] CLIA [id number] [address] [place] [address] [place] Prot Ur-mCncon 01-10-2023 Protein (U) [Mass/Vol] 8 mg/dL Normal 0-20 [facility] Comment on above: Order Comment: Speci men Type: URINE SPECIMEN Ordering Facility: [facility] Address: [address] [place] [address] Performed By: #### 2 888-6 #### [facility] CLIA [id number] [address] [place] [address] [place] Renal function 2000 panelon 01-10-2023 Albumin [Mass/Vol] 4.3 g/dL Normal 3.9-4.9 [facility] Comment on above: Order Comment: Speci men Type: BLOOD SPECIMEN Ordering Facility: [facility] Address: [address] [place], [place] [address] Performed By: #### 2 4362-6 #### [facility] CLIA [id number] [address] [place] [address] [place] Anion gap [Moles/Vol] 12 mmol/L Normal 9-18 [facility] Comment on above: Order Comment: Speci men Type: BLOOD SPECIMEN Ordering Facility: [facility] Address: [address] Performed By: #### 2 4362-6 #### [facility] CLIA [id number] [address] [place] [address] [place] Calcium [Mass/Vol] 9.9 mg/dL Normal 8.5-10.2 [facility] Comment on above: Order Comment: Speci men Type: BLOOD SPECIMEN Ordering Facility: [facility] Address: [address] Performed By: #### 2 4362-6 #### [facility] [place] [id number] [place] [address] [place] Chloride [Moles/Vol] 102 mmol/L Normal 97-105 [facility] Comment on above: Order Comment: Speci men Type: BLOOD SPECIMEN Ordering Facility: [facility] Address: [address] Performed By: #### 2 4362-6 #### [facility] [place] [id number] [address] [place] [address] [place] CO2 [Moles/Vol] 24 mmol/L Normal 22-30 [facility] Comment on above: Order Comment: Speci men Type: BLOOD SPECIMEN Ordering Facility: [facility] Address: [address] Performed By: #### 2 4362-6 #### [facility] [place] [id number] [address] [place] [address] [place] Creatinine [Mass/Vol] 2.00 mg/dL High 0.58-0.96 [facility] Comment on above: Order Comment: Speci men Type: BLOOD SPECIMEN Ordering Facility: [facility] Address: [address] [address] Performed By: #### 2 4362-6 #### [facility] CLIA [id number] [address] [place] [address] [place] ESTIMATED GLOMERULAR FILTRATION RATE 25 mL/min/1.73m??? Low >=60 [facility] Comment on above: Order Comment: Earline porras Type: BLOOD SPECIMEN Ordering Facility: [facility] Address: [address] [place] [address] Result Comment: Malini mated Glomerular Filtration Rate [...] GFR. Performed By: #### 2 4362-6 #### [facility] CLIA [id number] [address] [place] [address] [place] Glucose [Mass/Vol] 309 mg/dL High 74-99 [facility] Comment on above: Order Comment: Earline porras Type: BLOOD SPECIMEN Ordering Facility: [facility] Address: [address] [place] [address] Result Comment: The [place] [employer] (ADA) provides guidance for cutoff [...] Standards of Medical Care in Diabetes 2016, [place] [employer]. Diabetes Care. 2016.39(Suppl 1). Performed By: #### 2 4362-6 #### [facility] CLIA [id number] [address] [place] [address] [place] Phosphate [Mass/Vol] 4.2 mg/dL Normal 2.7-4.8 [facility] Comment on above: Order Comment: Speci men Type: BLOOD SPECIMEN Ordering Facility: [facility] Address: [address] [address] Performed By: #### 2 4362-6 #### [facility] CLIA [id number] [address] [place] [address] [place] Potassium [Moles/Vol] 4.9 mmol/L Normal 3.7-5.1 [facility] Comment on above: Order Comment: Speci men Type: BLOOD SPECIMEN Ordering Facility: [facility] Address: [address] [address] Performed By: #### 2 4362-6 #### [facility] CLIA [id number] [place] [address] [place] Sodium [Moles/Vol] 138 mmol/L Normal 136-144 [facility] Comment on above: Order Comment: Speci men Type: BLOOD SPECIMEN Ordering Facility: [facility] Address: [address] [address] Performed By: #### 2 4362-6 #### [facility] CLIA [id number] [address] [place] [address] [place] Urea nitrogen [Mass/Vol] 81 mg/dL High 7-21 [facility] Comment on above: Order Comment: Speci men Type: BLOOD SPECIMEN Ordering Facility: [facility] Address: [address] [address] Performed By: #### 2 4362-6 #### [facility] CLIA [id number] [address] [place] [address] [place] Albumin [Mass/Vol] 4.3 g/dL 3.9 - 4.9 g/dL [facility] Anion gap [Moles/Vol] 12 mmol/L 9 - 18 mmol/L [facility] Calcium [Mass/Vol] 9.9 mg/dL 8.5 - 10. 2 mg/dL [facility] Chloride [Moles/Vol] 102 mmol/L 97 - 10 5 mmol/L [facility] CO2 [Moles/Vol] 24 mmol/L 22 - 30 mmol/L [facility] Creatinine [Mass/Vol] 2.00 mg/dL High 0.58 - 0.96 mg/dL [facility] Estimated Glomerular Filtration Rate 25 mL/min/1.73m Low >=60 mL/min/1.73m [facility] Glucose [Mass/Vol] 309 mg/dL High 74 - 99 mg/dL [facility] Phosphate [Mass/Vol] 4.2 mg/dL 2.7 - 4 .8 mg/dL [facility] Potassium [Moles/Vol] 4.9 mmol/L 3.7 - 5.1 mmol/L [facility] Sodium [Moles/Vol] 138 mmol/L 136 - 144 mmol/L [facility] Urea nitrogen [Mass/Vol] 81 mg/dL High 7 - 21 mg/dL [facility] CARDIAC MIKE 3-6on 2 CK [Catalytic activity/Vol] 107 U/L Normal 26-192 [facility] Comment on above: Performed By: #### C MREP #### [facility] [address] [address] [address] Elaina Garnett CK.MB [Mass/Vol] 2.62 ng/mL Normal <=3.60 [facility] Comment on above: Performed By: #### C MREP #### [facility] [address] [address] [address] Elaina Garnett HSTROP 9.0 pg/mL Normal 4.0-51.3 [facility] Comment on above: Result Comment: CUT- OFF POINTS HAVE BEEN ESTABLISHED BASED ON THE FOURTH UNIVERSAL DEFINITIONS OF MYOCARDIAL INFARCTION. THE UPPER REFERENCE LIMIT (URL) OF TROPONIN, DEFINED THE 99TH PERCENTILE OF cTnI DISTRIBUTION IN A REFERENCE POPULATION, HAS BEEN CONFIRMED THE DECISION THRESHOLD FOR CT DIAGNOSIS. Performed By: #### C MREP #### [facility] [address] [address] [address] Elaina Garnett CBC AUTO DIFFon 11-05-2022 BASO # 0.1 103/ul Normal 0.0-0.1 [facility] Comment on above: Performed By: #### C BC #### [facility] [address] [address] [address] Elaina Garnett Basophils/100 WBC (Bld) 0.6 % Normal 0.2-2.0 [facility] Comment on above: Performed By: #### C BC #### [facility] [address] [address] [address] Elaina Garnett EO # 0.2 103/ul Normal 0.0-0.7 [facility] Comment on above: Performed By: #### C BC #### [facility] [address] [address] [address] Elaina Garnett Eosinophils/100 WBC (Bld) 2.1 % Normal 0.9-7.0 [facility] Comment on above: Performed By: #### C BC #### [facility] [address] [address] Dr. Elaina Garnett Erythrocyte distribution width (RBC) [Ratio] 13.2 % Normal 11.0-15.0 [facility] Comment on above: Performed By: #### C BC #### [facility] [address] [address] Dr. Elaina Garnett Hematocrit (Bld) [Volume fraction] 37.1 % Normal 36.0-48.0 [facility] Comment on above: Performed By: #### C BC #### [facility] [address] [address] Dr. Elaina Garnett Hemoglobin (Bld) [Mass/Vol] 12.4 g/dL Normal 12.0-16.0 [facility] Comment on above: Performed By: #### C BC #### [facility] [address] [place] [address] Dr. Elaina Garnett IG # 0.02 10e3/ul Normal 0.00-0.03 [facility] Comment on above: Performed By: #### C BC #### [facility] [address] [place] [address] Dr. Elaina Garnett IG % 0.2 % Normal 0.0-0.5 [facility] Comment on above: Performed By: #### C BC #### [facility] [address] [address] [address] Elaina Garnett LYMPH # 2.0 103/ul Normal 1.2-3.8 [facility] Comment on above: Performed By: #### C BC #### [facility] [address] [place] [address] Dr. Elaina Garnett Lymphocytes/100 WBC (Bld) 23.4 % Normal 20.5-60.0 [facility] Comment on above: Performed By: #### C BC #### [facility] [address] [place] [address] Dr. Elaina Garnett MANUAL DIFF REQ NO Normal [facility] Comment on above: Performed By: #### C BC #### [facility] [address] [address] Dr. Elaina Garnett MCH (RBC) [Entitic mass] 29.8 pg Normal 26.7-34.0 [facility] Comment on above: Performed By: #### C BC #### [facility] [address] [place] [address] Dr. Elaina Garnett MCHC (RBC) [Mass/Vol] 33.4 g/dL Normal 29.9-35.2 [facility] Comment on above: Performed By: #### C BC #### [facility] [address] [place] [address] Dr. Elaina Garnett MCV (RBC) [Entitic vol] 89.2 fL Normal 81.0-99.0 [facility] Comment on above: Performed By: #### C BC #### [facility] [address] [address] Dr. Elaina Garnett MONO # 1.1 103/ul Critically high 0.3-0.8 [facility] Comment on above: Performed By: #### C BC #### [facility] [address] [address] Dr. Elaina Garnett Monocytes/100 WBC (Bld) 12.1 % Critically high 1.7-12.0 [facility] Comment on above: Performed By: #### C BC #### [facility] [address] [address] [address] Elaina Garnett NEUT # 5.4 103/ul Normal 1.4-6.5 [facility] Comment on above: Performed By: #### C BC #### [facility] [address] [address] [address] Elaina Garnett Neutrophils/100 WBC (Bld) 61.6 % Normal 43.0-75.0 [facility] Comment on above: Performed By: #### C BC #### [facility] [address] [place] [address] Dr. Elaina Garnett Platelet mean volume (Bld) [Entitic vol] 10.2 fL Normal 9.5-13.5 [facility] [facility] Comment on above: Performed By: #### C BC #### [facility] [address] [place] [address] Dr. Elaina Garnett PLT 202 103/ul Normal 150-450 [facility] Comment on above: Performed By: #### C BC #### [facility] [address] [address] Dr. Elaina Garnett RBC 4.16 106/ul Critically low 4.20-5.40 [facility] Comment on above: Performed By: #### C BC #### [facility] [address] [address] Dr. Elaina Garnett WBC 8.7 103/ul Normal 4.0-11.0 [facility] Comment on above: Performed By: #### C BC #### [facility] [address] [address] Dr. Elaina Garnett POINT OF CARE GLUCOSEon 10-27 Glucose [Mass/Vol] 183 mg/dL Critically high 74-106 [facility] Comment on above: Performed By: #### C MP #### [facility] [address] [address] Dr. Elaina Garnett PROF 14(COMP METB)on Albumin [Mass/Vol] 3.0 g/dL Critically low 3.4-5.0 [facility] Comment on above: Performed By: #### C MP #### [facility] [address] [address] [address] Elaina Garnett Albumin/Globulin [Mass ratio] 0.8 {ratio} Normal [facility] Comment on above: Performed By: #### C MP #### [facility] [address] [address] Dr. Elaina Garnett ALP [Catalytic activity/Vol] 81 U/L Normal 46-116 [facility] Comment on above: Performed By: #### C MP #### [facility] [address] [address] [address] Elaina Garnett ALT [Catalytic activity/Vol] 13 U/L Critically low 14-59 [facility] Comment on above: Performed By: #### C MP #### [facility] [address] [address] Dr. Elaina Garnett Anion gap [Moles/Vol] 13.0 mmol/L Normal [facility] Comment on above: Performed By: #### C MP #### [facility] [address] [address] Dr. Elaina Garnett AST [Catalytic activity/Vol] 17 U/L Normal 15-37 [facility] Comment on above: Performed By: #### C MP #### [facility] [address] [address] Dr. Elaina Garnett Bilirubin [Mass/Vol] 0.5 mg/dL Normal 0.2-1.0 [facility] Comment on above: Performed By: #### C MP #### [facility] [address] [address] Dr. Elaina Ganrett Calcium [Mass/Vol] 8.3 mg/dL Critically low 8.5-10.1 [facility] Comment on above: Performed By: #### C MP #### [facility] [address] [place] [address] Dr. Elaina Garnett Chloride [Moles/Vol] 106 mmol/L Normal 98-107 [facility] Comment on above: Performed By: #### C MP #### [facility] [address] [address] [address] Elaina Garnett CO2 [Moles/Vol] 24.4 mmol/L Normal 21.0-32.0 [facility] Comment on above: Performed By: #### C MP #### [facility] [address] [address] [address] Elaina Garnett Creatinine [Mass/Vol] 2.13 mg/dL Critically high 0.55-1.02 [facility] Comment on above: Performed By: #### C MP #### [facility] [address] [address] [address] Elaina Garnett EGFR-AF [facility] 27 mL/min/1.73m2 Critically low >=60 [facility] Comment on above: Performed By: #### C MP #### [facility] [address] [address] [address] Elaina Garnett EGFR-NON AF [facility] 22 mL/min/1.73m2 Critically low >=60 [facility] Comment on above: Performed By: #### C MP #### [facility] [address] [address] [address] Elaina Garnett Globulin (S) [Mass/Vol] 3.6 g/dL Normal [facility] Comment on above: Performed By: #### C MP #### [facility] [address] [address] [address] Elaina Garnett Glucose [Mass/Vol] 209 mg/dL Critically high 74-106 [facility] Comment on above: Performed By: #### C MP #### [facility] [address] [address] [address] Elaina Garnett Potassium [Moles/Vol] 4.4 mmol/L Normal 3.5-5.1 [facility] Comment on above: Performed By: #### C MP #### [facility] [address] [address] [address] Elaina Garnett Protein [Mass/Vol] 6.6 g/dL Normal 6.4-8.2 [facility] Comment on above: Performed By: #### C MP #### [facility] [address] [address] [address] Elaina Garnett Sodium [Moles/Vol] 139 mmol/L Normal 136-145 [facility] Comment on above: Performed By: #### C MP #### [facility] [address] [place] [address] Dr. Elaina Garnett Urea nitrogen [Mass/Vol] 101.0 mg/dL Critically high 7.0-18.0 [facility] Comment on above: Performed By: #### C MP #### [facility] [address] [address] Dr. Elaina Garnett Urea nitrogen/Creatinine [Mass ratio] 47.4 mg/mg Normal [facility] Comment on above: Performed By: #### C MP #### [facility] [address] [address] Dr. 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 Elaina Garnett Clarity (U) CLEAR Normal CLEAR [facility] Comment on above: Performed By: #### R SPLUS #### [facility] [address] [address] Dr. Elaina Garnett Color (U) LT. YELLOW Normal YELLOW [facility] Comment on above: Performed By: #### R SPLUS #### [facility] [address] [address] Dr. Elaina Garnett Glucose Ql (U) Negative Normal NEGATIVE [facility] Comment on above: Performed By: #### R SPLUS #### [facility] [address] [address] Dr. Elaina Garnett Hemoglobin Ql (U) Negative Normal NEGATIVE [facility] Comment on above: Performed By: #### R SPLUS #### [facility] [address] [place] [address] Dr. Elaina Garnett Ketones Ql (U) Negative Normal NEGATIVE [facility] Comment on above: Performed By: #### R SPLUS #### [facility] [address] [place] [address] Dr. Elaina Garnett LEUKOCYTES Negative Normal NEGATIVE [facility] Comment on above: Performed By: #### R SPLUS #### [facility] [address] [address] Dr. Elaina Garnett Nitrite Ql (U) Negative Normal NEGATIVE [facility] Comment on above: Performed By: #### R SPLUS #### [facility] [address] [place] [address] Dr. Elaina Garnett pH (U) 5.5 [pH] Normal 5-9 [facility] Comment on above: Performed By: #### R SPLUS #### [facility] [address] [address] Dr. Elaina Garnett SPEC GRAVITY 1.010 Normal 1.005-<=1.025 [facility] Comment on above: Performed By: #### R SPLUS #### [facility] [address] [address] Dr. Elaina Garnett UA PROTEIN Negative Normal NEGATIVE/ TRACE [facility] Comment on above: Performed By: #### R SPLUS #### [facility] [address] [address] Dr. Elaina Garnett UR MICRO IND NOT INDICATED Normal [facility] Comment on above: Performed By: #### R SPLUS #### [facility] [address] [address] Dr. Elaina Garnett Urobilinogen Qn (U) 0.2 {Danny'U}/dL Normal 0.2 - 1. 0 [facility] Comment on above: Performed By: #### R SPLUS #### [facility] [address] [address] Dr. Elaina Garnett BLOOD GASES BTYon 11-04-2022 ALLENS TEST Positive Normal [facility] Comment on above: Result Comment: TEST NOT PERFORMED- RESULTED IN ERROR Previously reported as: POSITIVE On 11/04/2022 17:32 By [email or web address] Performed By: #### C BC #### [facility] [address] [place] [address] Dr. Elaina Garnett BIPAP PRESSURE [facility] Comment on above: Performed By: #### C BC #### [facility] [address] [address] [address] Elaina Garnett CPAP [facility] Comment on above: Performed By: #### C BC #### [facility] [address] [address] [address] Elaina Garnett FIO2 [facility] Comment on above: Performed By: #### C BC #### [facility] [address] [address] [address] Elaina Garnett LPM [facility] Comment on above: Performed By: #### C BC #### [facility] [address] [address] [address] Elaina Garnett MINUTE VOLUME [facility] Comment on above: Performed By: #### C BC #### [facility] [address] [address] [address] Elaina Garnett PEEP [facility] Comment on above: Performed By: #### C BC #### [facility] [address] [address] [address] Elaina Garnett PIP [facility] Comment on above: Performed By: #### C BC #### [facility] [address] [address] [address] Elaina Garnett PS [facility] Comment on above: Performed By: #### C BC #### [facility] [address] [address] [address] Elaina Garnett RATE [facility] Comment on above: Performed By: #### C BC #### [facility] [address] [address] [address] Elaina Garnett VENT MODE [facility] Comment on above: Performed By: #### C BC #### [facility] [address] [address] [address] Elaina Garnett [place] [facility] Comment on above: Performed By: #### C BC #### [facility] [address] [address] [address] Elaina Garnett BNPon 11-04-2022 Natriuretic peptide B (Bld) [Mass/Vol] 356.0 pg/mL Normal <=1,800.0 [facility] Comment on above: Performed By: #### C BC #### [facility] [address] [address] [address] Elaina Garnett BUNon 11-04-2022 Urea nitrogen [Mass/Vol] 112.0 mg/dL Critically high 7.0-18.0 [facility] Comment on above: Performed By: #### B UN #### [facility] [address] [address] [address] Elaina Garnett CARDIAC MIKE 3-6on 2 CK [Catalytic activity/Vol] 100 U/L Normal 26-192 [facility] Comment on above: Performed By: #### C MREP #### [facility] [address] [address] Dr. Elaina Garnett CK.MB [Mass/Vol] 2.57 ng/mL Normal <=3.60 [facility] Comment on above: Performed By: #### C MREP #### [facility] [address] [place] [address] Dr. Elaina Garnett HSTROP 7.3 pg/mL Normal 4.0-51.3 [facility] Comment on above: Result Comment: CUT- OFF POINTS HAVE BEEN ESTABLISHED BASED ON THE FOURTH UNIVERSAL DEFINITIONS OF MYOCARDIAL INFARCTION. THE UPPER REFERENCE LIMIT (URL) OF TROPONIN, DEFINED THE 99TH PERCENTILE OF cTnI DISTRIBUTION IN A REFERENCE POPULATION, HAS BEEN CONFIRMED THE DECISION THRESHOLD FOR CT DIAGNOSIS. Performed By: #### C MREP #### [facility] [address] [address] Dr. Elaina Garnett CARDIAC MIKE ADMITon 022 CK [Catalytic activity/Vol] 97 U/L Normal 26-192 [facility] Comment on above: Performed By: #### C BC #### [facility] [address] [address] Dr. Elaina Garnett CK.MB [Mass/Vol] 2.35 ng/mL Normal <=3.60 [facility] Comment on above: Performed By: #### C BC #### [facility] [address] [address] [address] Elaina Garnett HSTROP 7.8 pg/mL Normal 4.0-51.3 [facility] Comment on above: Result Comment: CUT- OFF POINTS HAVE BEEN ESTABLISHED BASED ON THE FOURTH UNIVERSAL DEFINITIONS OF MYOCARDIAL INFARCTION. THE UPPER REFERENCE LIMIT (URL) OF TROPONIN, DEFINED THE 99TH PERCENTILE OF cTnI DISTRIBUTION IN A REFERENCE POPULATION, HAS BEEN CONFIRMED THE DECISION THRESHOLD FOR CT DIAGNOSIS. Performed By: #### C BC #### [facility] [address] [address] Dr. Elaina Garnett TAO 155 ng/mL Critically high 9-82 [facility] Comment on above: Performed By: #### C BC #### [facility] [address] [address] Dr. Elaina Garnett CBC AUTO DIFFon 11-04-2022 BASO # 0.1 103/ul Normal 0.0-0.1 [facility] Comment on above: Performed By: #### R SPLUS #### [facility] [address] [address] [address] Elaina Garnett Basophils/100 WBC (Bld) 1.0 % Normal 0.2-2.0 [facility] Comment on above: Performed By: #### R SPLUS #### [facility] [address] [address] Dr. Elaina Garnett EO # 0.3 103/ul Normal 0.0-0.7 [facility] Comment on above: Performed By: #### R SPLUS #### [facility] [address] [address] Dr. Elaina Garnett Eosinophils/100 WBC (Bld) 3.2 % Normal 0.9-7.0 [facility] Comment on above: Performed By: #### R SPLUS #### [facility] [address] [address] Dr. Elaina Garnett Erythrocyte distribution width (RBC) [Ratio] 13.2 % Normal 11.0-15.0 [facility] Comment on above: Performed By: #### R SPLUS #### [facility] [address] [address] [address] Elaina Garnett Hematocrit (Bld) [Volume fraction] 42.5 % Normal 36.0-48.0 [facility] Comment on above: Performed By: #### R SPLUS #### [facility] [address] [address] Dr. Elaina Garnett Hemoglobin (Bld) [Mass/Vol] 14.3 g/dL Normal 12.0-16.0 [facility] Comment on above: Performed By: #### R SPLUS #### [facility] [address] [address] Dr. Elaina Garnett IG # 0.03 10e3/ul Normal 0.00-0.03 [facility] Comment on above: Performed By: #### R SPLUS #### [facility] [address] [address] Dr. Elaina Garnett IG % 0.3 % Normal 0.0-0.5 [facility] Comment on above: Performed By: #### R SPLUS #### [facility] [address] [address] [address] Elaina Garnett LYMPH # 3.2 103/ul Normal 1.2-3.8 [facility] Comment on above: Performed By: #### R SPLUS #### [facility] [address] [address] Dr. Elaina Garnett Lymphocytes/100 WBC (Bld) 32.2 % Normal 20.5-60.0 [facility] Comment on above: Performed By: #### R SPLUS #### [facility] [address] [address] Dr. Elaina Garnett MANUAL DIFF REQ NO Normal [facility] Comment on above: Performed By: #### R SPLUS #### [facility] [address] [address] Dr. Elaina Garnett MCH (RBC) [Entitic mass] 29.5 pg Normal 26.7-34.0 [facility] Comment on above: Performed By: #### R SPLUS #### [facility] [address] [address] [address] Elaina Garnett MCHC (RBC) [Mass/Vol] 33.6 g/dL Normal 29.9-35.2 [facility] Comment on above: Performed By: #### R SPLUS #### [facility] [address] [address] [address] Elaina Garnett MCV (RBC) [Entitic vol] 87.8 fL Normal 81.0-99.0 [facility] Comment on above: Performed By: #### R SPLUS #### [facility] [address] [address] [address] Elaina Garnett MONO # 1.5 103/ul Critically high 0.3-0.8 [facility] Comment on above: Performed By: #### R SPLUS #### [facility] [address] [address] Dr. Elaina Garnett Monocytes/100 WBC (Bld) 14.5 % Critically high 1.7-12.0 [facility] Comment on above: Performed By: #### R SPLUS #### [facility] [address] [address] [address] Elaina Garnett NEUT # 4.9 103/ul Normal 1.4-6.5 [facility] Comment on above: Performed By: #### R SPLUS #### [facility] [address] [address] Dr. Elaina Garnett Neutrophils/100 WBC (Bld) 48.8 % Normal 43.0-75.0 [facility] Comment on above: Performed By: #### R SPLUS #### [facility] [address] [address] [address] Elaina Garnett Platelet mean volume (Bld) [Entitic vol] 9.8 fL Normal 9.5-13.5 [facility] Comment on above: Performed By: #### R SPLUS #### [facility] [address] [address] [address] Elaina Garnett PLT 277 103/ul Normal 150-450 [facility] Comment on above: Performed By: #### R SPLUS #### [facility] [address] [place], [place] [address] Dr. Elaina Garnett RBC 4.84 106/ul Normal 4.20-5.40 [facility] Comment on above: Performed By: #### R SPLUS #### [facility] [address] [place], [place] [address] Dr. Elaina Garnett WBC 10.0 103/ul Normal 4.0-11.0 [facility] Comment on above: Performed By: #### R SPLUS #### [facility] [address] [place], [place] [address] HEAD WO CONon [...] JUAN GARRETT Date: 2022-11-04 17:14 Normal [facility]on SARS-CoV-2 (COVID-19) RNA BARB+probe Ql (Unsp spec) Not detected Normal NOT DETECTED [facility] Comment on above: Result Comment: When diagnostic [...] for this test is supported by the Emergency Department Manager of Health and Human Service's declaration [...] used). Performed By: #### R SPLUS #### [facility] [address] [address] Dr. Elaina Garnett INFLUENZA A AND B AGon 11-04 INFLUANEGH SEE BELOW Normal [facility] Comment on above: Result Comment: Nega tive for Flu A protein angiten. Infection due to Flu A cannot be ruled out. Flu A angiten in the sample may be below the detection limit of the test. Performed By: #### C BC #### [facility] [address] [address] Dr. Elaina Garnett INFLUBNEGH SEE BELOW Normal [facility] Comment on above: Result Comment: Nega tive for Flu B protein antigen. Infection due to Flu B cannot be ruled out. Flu B antigen in the sample may be below the detection limit of the test. Performed By: #### C BC #### [facility] [address] [address] Dr. Elaina Garnett INFLUENZA A AG Negative Normal NEGATIVE SEE COMMENT [facility] Comment on above: Performed By: #### C BC #### [facility] [address] [address] Dr. Elaina Garnett INFLUENZA B AG Negative Normal NEGATIVE SEE COMMENT [facility] Comment on above: Performed By: #### C BC #### [facility] [address] [address] Dr. Elaina Garnett INTERNAL CONTROLS Within Normal Limits Normal Wi thin Normal Limits [facility] Comment on above: Performed By: #### C BC #### [facility] [address] [address] Dr. Elaina Garnett LIPASEon 11-04-2022 Lipase [Catalytic activity/Vol] 163.0 U/L Normal 73.0-393.0 [facility] Comment on above: Performed By: #### C BC #### [facility] [address] [address] [address] Elaina Garnett POINT OF CARE GLUCOSEon Glucose [Mass/Vol] 246 mg/dL Critically high -106 [facility] Comment on above: Performed By: #### P OCGLUC #### [facility] [address] [address] [address] Elaina Garnett Glucose [Mass/Vol] 224 mg/dL Critically high -106 [facility] Comment on above: Performed By: #### P OCGLUC #### [facility] [address] [address] [address] Elaina Garnett Glucose [Mass/Vol] 113 mg/dL Critically high -106 [facility] Comment on above: Performed By: #### C BC #### [facility] [address] [address] [address] Elaina Garnett Glucose [Mass/Vol] 47 mg/dL Critically low -106 [facility] Comment on above: Result Comment: DR Lizeth KAM Performed By: #### P OCGLUC #### [facility] [address] [address] [address] Elaina Garnett Glucose [Mass/Vol] 127 mg/dL Critically high [address] [place] [address] Comment on above: Performed By: #### C BC #### [facility] [address] [address] [address] Elaina Garnett PROF 14(COMP METB)on 022 Albumin [Mass/Vol] 4.1 g/dL Normal 3.4-5.0 [facility] Comment on above: Performed By: #### C BC #### [facility] [address] [address] [address] Elaina Garnett Albumin/Globulin [Mass ratio] 0.9 {ratio} Normal [facility] Comment on above: Performed By: #### C BC #### [facility] [address] [address] [address] Elaina Garnett ALP [Catalytic activity/Vol] 105 U/L Normal 46-116 [facility] Comment on above: Performed By: #### C BC #### [facility] [address] [address] [address] Elaina Garnett ALT [Catalytic activity/Vol] 19 U/L Normal 14-59 [facility] Comment on above: Performed By: #### C BC #### [facility] [address] [address] [address] Elaina Garnett Anion gap [Moles/Vol] 14.1 mmol/L Normal [facility] Comment on above: Performed By: #### C BC #### [facility] [address] [address] [address] Elaina Garnett AST [Catalytic activity/Vol] 20 U/L Normal 15-37 [facility] Comment on above: Performed By: #### C BC #### [facility] [address] [address] Dr. Elaina Garnett Bilirubin [Mass/Vol] 0.6 mg/dL Normal 0.2-1.0 [facility] Comment on above: Performed By: #### C BC #### [facility] [address] [address] Dr. Elaina Garnett Calcium [Mass/Vol] 9.8 mg/dL Normal 8.5-10.1 [facility] Comment on above: Performed By: #### C BC #### [facility] [address] [address] Dr. Elaina Garnett Chloride [Moles/Vol] 102 mmol/L Normal 98-107 [facility] Comment on above: Performed By: #### C BC #### [facility] [address] [address] Dr. Elaina Garnett CO2 [Moles/Vol] 27.7 mmol/L Normal 21.0-32.0 [facility] Comment on above: Performed By: #### C BC #### [facility] [address] [address] Dr. Elaina Garnett Creatinine [Mass/Vol] 2.25 mg/dL Critically high 0.55-1.02 [facility] Comment on above: Performed By: #### C BC #### [facility] [address] [address] [address] Elaina Garnett EGFR-AF [facility] 25 mL/min/1.73m2 Critically low >=60 [facility] Comment on above: Performed By: #### C BC #### [facility] [address] [address] [address] Elaina Garnett EGFR-NON AF [facility] 21 mL/min/1.73m2 Critically low >=60 [facility] Comment on above: Performed By: #### C BC #### [facility] [address] [address] [address] Elaina Garnett Globulin (S) [Mass/Vol] 4.6 g/dL Normal [facility] Comment on above: Performed By: #### C BC #### [facility] [address] [address] [address] Elaina Garnett Glucose [Mass/Vol] 27 mg/dL Critically low 74-106 [facility] Comment on above: Performed By: #### C BC #### [facility] [address] [address] [address] Elaina Garnett Potassium [Moles/Vol] 3.8 mmol/L Normal 3.5-5.1 [facility] Comment on above: Performed By: #### C BC #### [facility] [address] [address] [address] Elaina Garnett Protein [Mass/Vol] 8.7 g/dL Critically high 6.4-8.2 [facility] Comment on above: Performed By: #### C BC #### [facility] [address] [address] [address] Elaina Garnett Sodium [Moles/Vol] 140 mmol/L Normal 136-145 [facility] Comment on above: Performed By: #### C BC #### [facility] [address] [address] [address] Elaina Garnett Urea nitrogen [Mass/Vol] 117.0 mg/dL Critically high 7.0-18.0 [facility] Comment on above: Performed By: #### C BC #### [facility] [address] [place] [address] Dr. Elaina Garnett Urea nitrogen/Creatinine [Mass ratio] 52.0 mg/mg Normal [facility] Comment on above: Performed By: #### C BC #### [facility] [address] [place] [address] Dr. Elaina Garnett PROTIMEon 11-04-2022 INR Coag (PPP) [Relative time] 1.00 {INR} Normal [facility] Comment on above: Performed By: #### C BC #### [facility] [address] [place] [address] Dr. Elaina Garnett INR GUIDELINES SEE BELOW Normal [facility] Comment on above: Result Comment: HOA RED INR: 2.0 - 3.0 CONDITIONS NOT LISTED BELOW 2.5 - 3.5 FOR PROSTHETIC HEART VALVE REPLACEMENT 2.5 - 3.5 RECURRENT THROMBOSIS Performed By: #### C BC #### [facility] [address] [place] [address] Dr. Elaina Garnett PT Coag (PPP) [Time] 10.8 s Normal 9.0-11.6 [facility] Comment on above: Performed By: #### C BC #### [facility] [address] [place] [address] Dr. Elaina Garnett PTTon 11-04-2022 aPTT Coag (Bld) [Time] 28.5 s Normal 22.3-36.2 [facility] Comment on above: Performed By: #### C BC #### [facility] [address] [place] [address] Dr. Elaina Garnett XR CHEST 1 Von [...] ELLEN EL Date: 2022-11-04 16:54 Normal [facility] BNPon 09-14-2022 Natriuretic peptide B (Bld) [Mass/Vol] 685.0 pg/mL Normal <=1,800.0 [facility] Comment on above: Performed By: #### C MP #### [facility] [address] [place] [address] Dr. Elaian Garnett BUNon 09-14-2022 Urea nitrogen [Mass/Vol] 67.0 mg/dL Critically high 7.0-18.0 [facility] Comment on above: Performed By: #### C MP #### [facility] [address] [place] [address] Dr. Elaina Garnett CBC AUTO DIFFon 09-14-2022 BASO # 0.1 103/ul Normal 0.0-0.1 [facility] Comment on above: Performed By: #### C BC #### [facility] [address] [place] [address] Dr. Elaina Garnett Basophils/100 WBC (Bld) 1.1 % Normal 0.2-2.0 [facility] Comment on above: Performed By: #### C BC #### [facility] [address] [place] [address] Dr. Elaina Garnett EO # 0.3 103/ul Normal 0.0-0.7 [facility] Comment on above: Performed By: #### C BC #### [facility] [address] [address] Dr. Elaina Garnett Eosinophils/100 WBC (Bld) 3.6 % Normal 0.9-7.0 [facility] Comment on above: Performed By: #### C BC #### [facility] [address] [place] [address] Dr. Elaina Garnett Erythrocyte distribution width (RBC) [Ratio] 13.8 % Normal 11.0-15.0 [facility] Comment on above: Performed By: #### C BC #### [facility] [address] [address] Dr. Elaina Garnett Hematocrit (Bld) [Volume fraction] 40.7 % Normal 36.0-48.0 [facility] Comment on above: Performed By: #### C BC #### [facility] [address] [address] Dr. Elaina Garnett Hemoglobin (Bld) [Mass/Vol] 13.4 g/dL Normal 12.0-16.0 [facility] Comment on above: Performed By: #### C BC #### [facility] [address] [address] Dr. Elaina Garnett IG # 0.02 10e3/ul Normal 0.00-0.03 [facility] Comment on above: Performed By: #### C BC #### [facility] [address] [place] [address] Dr. Elaina Garnett IG % 0.2 % Normal 0.0-0.5 [facility] Comment on above: Performed By: #### C BC #### [facility] [address] [place] [address] Dr. Elaina Garnett LYMPH # 2.2 103/ul Normal 1.2-3.8 [facility] Comment on above: Performed By: #### C BC #### [facility] [address] [place] [address] Dr. Elaina Garnett Lymphocytes/100 WBC (Bld) 26.0 % Normal 20.5-60.0 [facility] Comment on above: Performed By: #### C BC #### [facility] [address] [address] Dr. Elaina Garnett MANUAL DIFF REQ NO Normal [facility] Comment on above: Performed By: #### C BC #### [facility] [address] [place] [address] Dr. Elaina Garnett MCH (RBC) [Entitic mass] 30.7 pg Normal 26.7-34.0 [facility] Comment on above: Performed By: #### C BC #### [facility] [address] [place] [address] Dr. Elaina Garnett MCHC (RBC) [Mass/Vol] 32.9 g/dL Normal 29.9-35.2 [facility] Comment on above: Performed By: #### C BC #### [facility] [address] [place] [address] Dr. Elaina Garnett MCV (RBC) [Entitic vol] 93.3 fL Normal 81.0-99.0 [facility] Comment on above: Performed By: #### C BC #### [facility] [address] [place] [address] Dr. Elaina Garnett MONO # 1.0 103/ul Critically high 0.3-0.8 [facility] Comment on above: Performed By: #### C BC #### [facility] [address] [address] Dr. Elaina Garnett Monocytes/100 WBC (Bld) 12.4 % Critically high 1.7-12.0 [facility] Comment on above: Performed By: #### C BC #### [facility] [address] [address] Dr. Elaina Garnett NEUT # 4.7 103/ul Normal 1.4-6.5 [facility] Comment on above: Performed By: #### C BC #### [facility] [address] [address] Dr. Elaina Garnett Neutrophils/100 WBC (Bld) 56.7 % Normal 43.0-75.0 [facility] Comment on above: Performed By: #### C BC #### [facility] [address] [address] Dr. Elaina Granett Platelet mean volume (Bld) [Entitic vol] 9.7 fL Normal 9.5-13.5 [facility] Comment on above: Performed By: #### C BC #### [facility] [address] [place] [address] Dr. Elaina Garnett PLT 230 103/ul Normal 150-450 [facility] Comment on above: Performed By: #### C BC #### [facility] [address] [place] [address] Dr. Elaina Garnett RBC 4.36 106/ul Normal 4.20-5.40 [facility] Comment on above: Performed By: #### C BC #### [facility] [address] [place] [address] Dr. Elaina Garnett WBC 8.3 103/ul Normal 4.0-11.0 [facility] Comment on above: Performed By: #### C BC #### [facility] [address] [place] [address] Dr. Elaina Garnett CREATININEon 09-14-2022 Creatinine [Mass/Vol] 1.93 mg/dL Critically high 0.55-1.02 [facility] Comment on above: Performed By: #### C MP #### [facility] [address] [address] Dr. Elaina Garnett EGFR-AF [facility] 30 mL/min/1.73m2 Critically low >=60 [facility] Comment on above: Performed By: #### C MP #### [facility] [address] [address] Dr. Elaina Garnett EGFR-NON AF [facility] 25 mL/min/1.73m2 Critically low >=60 [facility] Comment on above: Performed By: #### C MP #### [facility] [address] [place] [address] Dr. Elaina Garnett ELECTROLYTESon 09-14-2022 Anion gap [Moles/Vol] 13.1 mmol/L Normal [facility] Comment on above: Performed By: #### C MP #### [facility] [address] [place] [address] Dr. Elaina Garnett Chloride [Moles/Vol] 103 mmol/L Normal 98-107 [facility] Comment on above: Performed By: #### C MP #### [facility] [address] [place] [address] Dr. Elaina Garnett CO2 [Moles/Vol] 25.5 mmol/L Normal 21.0-32.0 [facility] Comment on above: Performed By: #### C MP #### [facility] [address] [address] Dr. Elaina Garnett Potassium [Moles/Vol] 4.6 mmol/L Normal 3.5-5.1 [facility] Comment on above: Performed By: #### C MP #### [facility] [address] [address] Dr. Elaina Garnett Sodium [Moles/Vol] 137 mmol/L Normal 136-145 [facility] Comment on above: Performed By: #### C MP #### [facility] [address] [address] [address] Elaina Garnett GLYCOHEMOGLOBIN A1Con 2021 ADA RECOMMENDATION SEE BELOW Normal [facility] Comment on above: Result Comment: ADA RECOMMENDED LIMIT 4.0 - 6.0 ADA THERAPEUTIC TARGET < 7.0 ACTION SUGGESTED > 7.0 Performed By: #### R SPLUS #### [facility] [address] [address] [address] Elaina Garnett Glucose [Mass/Vol] 209 mg/dL Normal [facility] Comment on above: Performed By: #### R SPLUS #### [facility] [address] [address] [address] Elaina Garnett HbA1c (Bld) [Mass fraction] 8.9 % Critically high 4.5-6.2 [facility] Comment on above: Performed By: #### R SPLUS #### [facility] [address] [address] [address] Elaina Garnett LIPID PROFILEon 09-14-2022 CHOL-HDL RATIO NORM SEE BELOW Normal [facility] Comment on above: Result Comment: 3.3 - 4.4 LOW RISK 4.4 - 7.1 AVERAGE RISK 7.1 - 11.0 MODERATE RISK >11.0 HIGH RISK Performed By: #### C MP #### [facility] [address] [address] [address] Elaina Garnett Cholesterol [Mass/Vol] 135 mg/dL Normal <=200 [facility] Comment on above: Performed By: #### C MP #### [facility] [address] [address] [address] Elaina Garnett Cholesterol in HDL [Mass/Vol] 39 mg/dL Critically low 40-60 [facility] Comment on above: Performed By: #### C MP #### [facility] [address] [address] [address] Elaina Garnett Cholesterol in LDL [Mass/Vol] 67.4 mg/dL Normal [facility] Comment on above: Performed By: #### C MP #### [facility] [address] [address] [address] Elaina Garnett Cholesterol.total/Ch olesterol in HDL [Mass ratio] 3.5 {ratio} Normal [facility] Comment on above: Performed By: #### C MP #### [facility] [address] [address] [address] Elaina Garnett HDL NORMAL > or = 60 mg/dl - LO W CARDIOVASCULAR RISK <40 mg/dl - HIGH CARDIOVASCULAR RISK Normal [facility] Comment on above: Performed By: #### C MP #### [facility] [address] [address] [address] Elaina Garnett LDL CALC NORMAL SEE BELOW Normal [facility] Comment on above: Result Comment: <100 mg/dl OPTIMAL 100 - 129 mg/dl NEAR OR ABOVE OPTIMAL 130 - 159 mg/dl BORDERLINE HIGH 160 - 189 mg/dl HIGH >190 mg/dl VERY HIGH Performed By: #### C MP #### [facility] [address] [address] [address] Elaina Garnett Triglyceride [Mass/Vol] 143 mg/dL Normal <=150 [facility] Comment on above: Performed By: #### C MP #### [facility] [address] [place] [address] Dr. Elaina Garnett VLDL CALC 28.6 mg/dL Normal [facility] Comment on above: Performed By: #### C MP #### [facility] [address] [address] [address] Elaina Garnett LIVER PROFILEon 09-14-2022 Albumin [Mass/Vol] 3.4 g/dL Normal 3.4-5.0 [facility] Comment on above: Performed By: #### C MP #### [facility] [address] [address] [address] Elaina Garnett Albumin/Globulin [Mass ratio] 0.8 {ratio} Normal [facility] Comment on above: Performed By: #### C MP #### [facility] [address] [place] [address] Dr. Elaina Garnett ALP [Catalytic activity/Vol] 122 U/L Critically high 46-116 [facility] Comment on above: Performed By: #### C MP #### [facility] [address] [place] [address] Dr. Elaina Garnett ALT [Catalytic activity/Vol] 17 U/L Normal 14-59 [facility] Comment on above: Performed By: #### C MP #### [facility] [address] [address] [address] Elaina Garnett AST [Catalytic activity/Vol] 15 U/L Normal 15-37 [facility] Comment on above: Performed By: #### C MP #### [facility] [address] [place] [address] Dr. Elaina VASQUEZI, CONJUGATED 0.1 mg/dL Normal 0.0-0.2 [facility] Comment on above: Performed By: #### C MP #### [facility] [address] [place] [address] Dr. Elaina Garnett Bilirubin [Mass/Vol] 0.6 mg/dL Normal 0.2-1.0 [facility] Comment on above: Performed By: #### C MP #### [facility] [address] [place] [address] Dr. Elaina Garnett Globulin (S) [Mass/Vol] 4.1 g/dL Normal [facility] Comment on above: Performed By: #### C MP #### [facility] [address] [address] Dr. Elaina Garnett Protein [Mass/Vol] 7.5 g/dL Normal 6.4-8.2 [facility] Comment on above: Performed By: #### C MP #### [facility] [address] [address] [address] Elaina Garnett TSHon 09-14-2022 TSH 1.535 uIU/mL Normal 0.358-3.740 [facility] Comment on above: Performed By: #### C MP #### [facility] [address] [address] Dr. Elaina Garnett MG MAMM SCREEN 3D PEDRO CADon 09-13-2022 MG MAMM SCREEN 3D PEDRO CAD Patient: VARSHA NIEVES Exam Date: 09/13/2022 : 1945 Gender:F Ordering : DR MADDISON MENDEZ Admission #: [id number] Family : Order #: [id number] CLICK HERE TO VIEW EXAM RADIOLOGY REPORT [...] RADIATION TREATMENTS Family Cancers None LOCATION: [facility] BREAST COMPOSITION: Scattered areas fibroglandular density. FINDINGS: [...] M.D. on 09/14/2022 at 14:11 Normal [facility] RENAL FUNCTION PANELon 05-17 Albumin [Mass/Vol] 3.5 g/dL Normal 3.4-5.0 [facility] Comment on above: Performed By: #### C MP #### [facility] [address] [address] [address] Elaina Garnett Calcium [Mass/Vol] 8.8 mg/dL Normal 8.5-10.1 [facility] Comment on above: Performed By: #### C MP #### [facility] [address] [address] [address] Elaina Garnett Chloride [Moles/Vol] 106 mmol/L Normal 98-107 [facility] Comment on above: Performed By: #### C MP #### [facility] [address] [address] [address] Elaina Garnett CO2 [Moles/Vol] 29.1 mmol/L Normal 21.0-32.0 [facility] Comment on above: Performed By: #### C MP #### [facility] [address] [address] [address] Elaina Garnett Creatinine [Mass/Vol] 2.04 mg/dL Critically high 0.55-1.02 [facility] Comment on above: Performed By: #### C MP #### [facility] [address] [address] [address] Elaina Garnett EGFR-AF [facility] 29 mL/min/1.73m2 Critically low >=60 [facility] Comment on above: Performed By: #### C MP #### [facility] [address] [address] [address] Elaina Garnett EGFR-NON AF [facility] 24 mL/min/1.73m2 Critically low >=60 [facility] Comment on above: Performed By: #### C MP #### [facility] [address] [address] [address] Elaina Garnett Glucose [Mass/Vol] 46 mg/dL Critically low 74-106 [facility] Comment on above: Performed By: #### C MP #### [facility] [address] [address] [address] Elaina Garnett Phosphate [Mass/Vol] 4.2 mg/dL Normal 2.6-4.7 [facility] Comment on above: Performed By: #### C MP #### [facility] [address] [address] [address] Elaina Garnett Potassium [Moles/Vol] 4.6 mmol/L Normal 3.5-5.1 [facility] Comment on above: Performed By: #### C MP #### [facility] [address] [address] [address] Elaina Garnett Sodium [Moles/Vol] 142 mmol/L Normal 136-145 [facility] Comment on above: Performed By: #### C MP #### [facility] [address] [address] [address] Elaina Garnett Urea nitrogen [Mass/Vol] 65.0 mg/dL Critically high 7.0-18.0 [facility] Comment on above: Performed By: #### C MP #### [facility] [address] [address] [address] Elaina Garnett Basic metabolic 2000 panelon 05-03-2022 Anion gap [Moles/Vol] 11 mmol/L Normal 9-18 [facility] Comment on above: Order Comment: Speci men Type: BLOOD SPECIMEN Ordering Facility: [facility] Address: [address] Performed By: #### 1 989-3 #### [facility] CLIA [id number] [address] [place] [address] [place] Calcium [Mass/Vol] 9.9 mg/dL Normal 8.5-10.2 [facility] Comment on above: Order Comment: Speci men Type: BLOOD SPECIMEN Ordering Facility: [facility] Address: [address] Performed By: #### 1 989-3 #### [facility] CLIA [id number] [address] [place] [address] [place] Chloride [Moles/Vol] 101 mmol/L Normal 97-105 [facility] Comment on above: Order Comment: Speci men Type: BLOOD SPECIMEN Ordering Facility: [facility] Address: [address] [place] [address] Performed By: #### 1 989-3 #### [facility] CLIA [id number] [address] [place] [address] [place] CO2 [Moles/Vol] 24 mmol/L Normal 22-30 [facility] Comment on above: Order Comment: Speci men Type: BLOOD SPECIMEN Ordering Facility: [facility] Address: [address] [place] [address] Performed By: #### 1 989-3 #### [facility] CLIA [id number] [address] [place] [address] [place] Creatinine [Mass/Vol] 1.99 mg/dL High 0.58-0.96 [facility] Comment on above: Order Comment: Earline porras Type: BLOOD SPECIMEN Ordering Facility: [facility] Address: [address] [address] Performed By: #### 1 989-3 #### [facility] CLIA [id number] [address] [place] [address] [place] ESTIMATED GLOMERULAR FILTRATION RATE 25 mL/min/1.73m??? Low >=60 [facility] Comment on above: Order Comment: Earline porras Type: BLOOD SPECIMEN Ordering Facility: [facility] Address: [address] [place] [address] Result Comment: Malini mated Glomerular Filtration Rate [...] GFR. Performed By: #### 1 989-3 #### [facility] CLIA [id number] [address] [place] [address] [place] Glucose [Mass/Vol] 317 mg/dL High 74-99 [facility] Comment on above: Order Comment: Earline porras Type: BLOOD SPECIMEN Ordering Facility: [facility] Address: [address] [address] Result Comment: The [place] [employer] (ADA) provides guidance for cutoff [...] Standards of Medical Care in Diabetes 2016, [place] [employer]. Diabetes Care. 2016.39(Suppl 1). Performed By: #### 1 989-3 #### [facility] CLIA [id number] [address] [place] [address] [place] Potassium [Moles/Vol] 5.7 mmol/L High 3.7-5.1 [facility] Comment on above: Order Comment: Speci men Type: BLOOD SPECIMEN Ordering Facility: [facility] Address: [address] [address] Performed By: #### 1 989-3 #### [facility] CLIA [id number] [address] [place] [address] [place] Sodium [Moles/Vol] 136 mmol/L Normal 136-144 [facility] Comment on above: Order Comment: Speci men Type: BLOOD SPECIMEN Ordering Facility: [facility] Address: [address] [address] Performed By: #### 1 989-3 #### [facility] CLIA [id number] [address] [place] [address] [place] Urea nitrogen [Mass/Vol] 57 mg/dL High 7-21 [facility] Comment on above: Order Comment: Speci men Type: BLOOD SPECIMEN Ordering Facility: [facility] Address: [address] Performed By: #### 1 989-3 #### [facility] CLIA [id number] [address] [place] [address] [place] CBC panel Auto (Bld)on 05-03 Erythrocyte distribution width (RBC) [Ratio] 14.0 % Normal 11.5-15.0 [facility] Comment on above: Order Comment: Speci men Type: BLOOD SPECIMEN Ordering Facility: [facility] Address: [address] [place] [address] Performed By: #### 5 8410-2 #### [facility] [place] [id number] [address] [place] Hematocrit (Bld) [Volume fraction] 43.3 % Normal 36.0-46.0 [facility] Comment on above: Order Comment: Speci men Type: BLOOD SPECIMEN Ordering Facility: [facility] Address: [address] [place] [address] Performed By: #### 5 8410-2 #### [facility] [place] [id number] [place] [address] [place] Hemoglobin (Bld) [Mass/Vol] 13.6 g/dL Normal 11.5-15.5 [facility] Comment on above: Order Comment: Speci men Type: BLOOD SPECIMEN Ordering Facility: [facility] [facility] Address: [address] [place] [address] Performed By: #### 5 8410-2 #### [facility] [place] [id number] [address] [place] [address] [place] MCH (RBC) [Entitic mass] 29.2 pg Normal 26.0-34.0 [facility] Comment on above: Order Comment: Speci men Type: BLOOD SPECIMEN Ordering Facility: [facility] Address: [address] [place] [address] Performed By: #### 5 8410-2 #### [facility] IA [id number] [address] [place] [address] [place] MCHC (RBC) [Mass/Vol] 31.4 g/dL Normal 30.5-36.0 [facility] Comment on above: Order Comment: Speci men Type: BLOOD SPECIMEN Ordering Facility: [facility] Address: [address] [place] [address] Performed By: #### 5 8410-2 #### [facility] [place] [id number] [address] [place] [address] [place] MCV (RBC) [Entitic vol] 93.1 fL Normal 80.0-100.0 [facility] Comment on above: Order Comment: Speci men Type: BLOOD SPECIMEN Ordering Facility: [facility] Address: [address] [place] [address] Performed By: #### 5 8410-2 #### [facility] CLIA [id number] [address] [place] [address] [place] Nucleated RBC (Bld) [#/Vol] 10*3/uL Normal <0.01 [facility] Comment on above: Order Comment: Speci men Type: BLOOD SPECIMEN Ordering Facility: [facility] Address: [address] Performed By: #### 5 8410-2 #### [facility] IA [id number] [address] [place] [address] [place] Platelet mean volume (Bld) [Entitic vol] 9.8 fL Normal 9.0-12.7 [facility] Comment on above: Order Comment: Speci men Type: BLOOD SPECIMEN Ordering Facility: [facility] Address: [address] [place] [address] Performed By: #### 5 8410-2 #### [facility] IA [id number] [address] [place] [address] [place] Platelets (Bld) [#/Vol] 247 10*3/uL Normal 150-400 [facility] Comment on above: Order Comment: Speci men Type: BLOOD SPECIMEN Ordering Facility: [facility] Address: [address] [place] [address] Performed By: #### 5 8410-2 #### [facility] CLIA [id number] [address] [place] [address] [place] RBC (Bld) [#/Vol] 4.65 10*6/uL Normal 3.90-5.20 [facility] Comment on above: Order Comment: Speci men Type: BLOOD SPECIMEN Ordering Facility: [facility] Address: [address] [place], [place] [address] Performed By: #### 5 8410-2 #### [facility] CLIA [id number] [address] [facility] [address] [place] [place] [id number] [place] [address] OF [facility] WBC (Bld) [#/Vol] 8.50 10*3/uL Normal 3.70-11.00 [facility] Comment on above: Order Comment: Speci men Type: BLOOD SPECIMEN Ordering Facility: [facility] Address: [address] [place] [address] [place] [address] Performed By: #### 5 8410-2 #### [facility] CLIA [id number] [address] [facility] [address] [place] [place] [id number] [place] [address] STATES OF [facility] Erythrocyte distribution width (RBC) [Ratio] 14.0 % 11.5 - 15.0 % [facility] Hematocrit (Bld) [Volume fraction] 43.3 % 36.0 - 46.0 % [facility] Hemoglobin (Bld) [Mass/Vol] 13.6 g/dL 11.5 - 15.5 g/dL [facility] MCH (RBC) [Entitic mass] 29.2 pg 26.0 - 34.0 pg [facility] MCHC (RBC) [Mass/Vol] 31.4 g/dL 30.5 - 36.0 g/dL [facility] MCV (RBC) [Entitic vol] 93.1 fL 80.0 - 100.0 fL [facility] Nucleated RBC (Bld) [#/Vol] 10*3/uL <0.01 k/uL [facility] Platelet mean volume (Bld) [Entitic vol] 9.8 fL 9.0 - 12.7 fL [facility] Platelets (Bld) [#/Vol] 247 10*3/uL 150 - 400 k/uL [facility] RBC (Bld) [#/Vol] 4.65 10*6/uL 3.90 - 5.2 0 m/uL [facility] WBC (Bld) [#/Vol] 8.50 10*3/uL 3.70 - 11. 00 k/uL [facility] HEPATIC FUNCTION PNLon 05-03 Albumin [Mass/Vol] 4.2 g/dL Normal 3.9-4.9 [facility] Comment on above: Order Comment: Speci men Type: BLOOD SPECIMEN Ordering Facility: [facility] Address: [address] Performed By: #### 1 989-3 #### [facility] CLIA [id number] [address] [place] ALP [Catalytic activity/Vol] 114 U/L Normal 34-123 [facility] Comment on above: Order Comment: Speci men Type: BLOOD SPECIMEN Ordering Facility: [facility] Address: [address] Performed By: #### 1 989-3 #### [facility] CLIA [id number] [address] [place] [address] [place] ALT [Catalytic activity/Vol] 11 U/L Normal 7-38 [facility] Comment on above: Order Comment: Speci men Type: BLOOD SPECIMEN Ordering Facility: [facility] Address: [address] Performed By: #### 1 989-3 #### [facility] CLIA [id number] [address] OF [place] AST [Catalytic activity/Vol] 17 U/L Normal 13-35 [facility] Comment on above: Order Comment: Speci men Type: BLOOD SPECIMEN Ordering Facility: [facility] Address: [address] Performed By: #### 1 989-3 #### [facility] CLIA [id number] [address] STATES [place] Bilirubin [Mass/Vol] 0.7 mg/dL Normal 0.2-1.3 [facility] Comment on above: Order Comment: Speci men Type: BLOOD SPECIMEN Ordering Facility: [facility] Address: [address] Performed By: #### 1 989-3 #### [facility] CLIA [id number] [address] [place] Bilirubin.conjugated [Mass/Vol] mg/dL Normal <0.2 [facility] Comment on above: Order Comment: Speci men Type: BLOOD SPECIMEN Ordering Facility: [facility] Address: [address] [place] [address] Performed By: #### 1 989-3 #### [facility] CLIA [id number] [address] STATES [place] Protein [Mass/Vol] 7.7 g/dL Normal 6.3-8.0 [facility] Comment on above: Order Comment: Nestori men Type: BLOOD SPECIMEN Ordering Facility: [facility] Address: [address] [place] [address] Performed By: #### 1 989-3 #### [facility] CLIA [id number] [address] OF [facility] Albumin [Mass/Vol] 4.2 g/dL 3.9 - 4.9 g/dL [facility] ALP [Catalytic activity/Vol] 114 U/L 34 - 123 U/L [facility] ALT [Catalytic activity/Vol] 11 U/L 7 - 38 U/L [facility] AST [Catalytic activity/Vol] 17 U/L 13 - 35 U/L [facility] Bilirubin [Mass/Vol] 0.7 mg/dL 0.2 - 1 .3 mg/dL [facility] Bilirubin.conjugated [Mass/Vol] mg/dL <0.2 mg/dL [facility] Protein [Mass/Vol] 7.7 g/dL 6.3 - 8.0 g/dL [facility] LIPID PANEL BASICon 05-03-20 22 Cholesterol [Mass/Vol] 155 mg/dL Normal <200 [facility] Comment on above: Order Comment: Nestori men Type: BLOOD SPECIMEN Ordering Facility: [facility] Address: [address] Result Comment: <200 mg/dL, Desirable 200-239 mg/dL, Borderline high >239 mg/dL, High Performed By: #### 1 989-3 #### [facility] CLIA [id number] [address] OF [place] Cholesterol in HDL [Mass/Vol] 39 mg/dL Low >39 [facility] Comment on above: Order Comment: Earline porras Type: BLOOD SPECIMEN Ordering Facility: [facility] Address: [address] [place] [address] Result Comment: 40-5 9 mg/dL, Acceptable >59 mg/dL, High: Negative risk factor for coronary heart disease <40 mg/dL, Low: Positive risk factor for coronary heart disease Performed By: #### 1 989-3 #### [facility] CLIA [id number] [address] OF [place] Cholesterol in LDL [Mass/Vol] 62 mg/dL Normal <100 [facility] Comment on above: Order Comment: Earline porras Type: BLOOD SPECIMEN Ordering Facility: [facility] Address: [address] [place] [address] Result Comment: <100 mg/dL, Optimal 100-129 mg/dL, Near optimal/above optimal 130-159 mg/dL, Borderline high 160-189 mg/dL, High >189 mg/dL, Very high Secondary prevention optimal LDL Cholesterol levels are recommended to be < 70 mg/dL Performed By: #### 1 989-3 #### [facility] CLIA [id number] [address] [place] [address] OF [facility] Cholesterol in LDL/Cholesterol in HDL [Mass ratio] 1.59 {ratio} Normal <2.54 [facility] Comment on above: Order Comment: Earline porras Type: BLOOD SPECIMEN Ordering Facility: [facility] Address: [address] [place] [address] Result Comment: Refsavi nash: 1. National Cholesterol Education Program ATP III Guideline At-A-Glance Quick Desk Reference: National Heart, Lung, and Blood [place]. National Institutes of Health. 2001: NIH Publication No. 01-3305. 2. An International Atherosclerosis Society position paper: global recommendations for the management of dyslipidemia: executive summary, Atherosclerosis. 2014: 232(2):410-413. Performed By: #### 1 989-3 #### [facility] CLIA [id number] [address] OF [place] Cholesterol in VLDL [Mass/Vol] 54 mg/dL High <30 [facility] Comment on above: Order Comment: Speci men Type: BLOOD SPECIMEN Ordering Facility: [facility] Address: [address] [place] [address] Performed By: #### 1 989-3 #### [facility] CLIA [id number] [address] [place] [address] [facility] [place] Cholesterol non HDL [Mass/Vol] 116 mg/dL Normal <130 [facility] Comment on above: Order Comment: Speci men Type: BLOOD SPECIMEN Ordering Facility: [facility] Address: [address] [place] [address] Result Comment: <130 mg/dL, Optimal 130-159 mg/dL, Near optimal/above optimal 160-189 mg/dL, Borderline high 190-219 mg/dL, High >219 mg/dL, Very high Secondary prevention optimal non HDL Cholesterol levels are recommended to be <100 mg/dL Performed By: #### 1 989-3 #### [facility] CLIA [id number] [address] [place] Cholesterol.total/Ch olesterol in HDL [Mass ratio] 3.97 {ratio} Normal <5.10 [facility] Comment on above: Order Comment: Speci men Type: BLOOD SPECIMEN Ordering Facility: [facility] Address: [address] [place] [address] Performed By: #### 1 989-3 #### [facility] CLIA [id number] [address] [place] FASTING TIME 0 hrs Normal [facility] Comment on above: Order Comment: Speci men Type: BLOOD SPECIMEN Ordering Facility: [facility] Address: [address] Performed By: #### 1 989-3 #### [facility] CLIA [id number] [address] OF [facility] Triglyceride [Mass/Vol] 272 mg/dL High <150 [facility] Comment on above: Order Comment: Speci men Type: BLOOD SPECIMEN Ordering Facility: [facility] Address: [address] [place] [id number] Result Comment: <150 mg/dL, Normal 150-199 mg/dL, Borderline high 200-499 mg/dL, High >499 mg/dL, Very high Performed By: #### 1 989-3 #### [facility] CLIA [id number] [address] [place] Cholesterol [Mass/Vol] 155 mg/dL <200 mg/dL [facility] Cholesterol in HDL [Mass/Vol] 39 mg/dL Low >39 mg/dL [facility] Cholesterol in LDL [Mass/Vol] 62 mg/dL <100 mg/dL [facility] Cholesterol in LDL/Cholesterol in HDL [Mass ratio] 1.59 {ratio} <2.54 [facility] Cholesterol in VLDL [Mass/Vol] 54 mg/dL High <30 mg/dL [facility] Cholesterol non HDL [Mass/Vol] 116 mg/dL <130 mg/dL [facility] Cholesterol.total/Ch olesterol in HDL [Mass ratio] 3.97 {ratio} <5.10 [facility] Fasting Time 0 hrs [facility] Triglyceride [Mass/Vol] 272 mg/dL High <150 mg/dL [facility] MAGNESIUM BLDon 05-03-2022 Magnesium [Mass/Vol] 2.5 mg/dL High 1.7 - 2 .3 mg/dL [facility] Magnesium SerPl-mCncon 05-03 Magnesium [Mass/Vol] 2.5 mg/dL High 1.7-2.3 [facility] Comment on above: Order Comment: Speci men Type: BLOOD SPECIMEN Ordering Facility: [facility] Address: [address] [place] [id number] Performed By: #### 1 9123-9, 2777-1, 85503-4 #### [facility] CLIA [id number] [address] [place] [address] [place] NT PRO BNPon 05-03-2022 Natriuretic peptide.B prohormone N-Terminal [Mass/Vol] 340 pg/mL <450 pg/mL [facility] NT-proBNP SerPl-mCncon 05-03 Natriuretic peptide.B prohormone N-Terminal [Mass/Vol] 340 pg/mL Normal <450 [facility] Comment on above: Order Comment: Speci men Type: BLOOD SPECIMEN Ordering Facility: [facility] Address: [address] [place] [address] Performed By: #### 1 9123-9, 2777-1, 67552-6 #### [facility] CLIA [id number] [address] [place] [address] STATES OF [facility] Phosphate SerPl-mCncon 05-03 Phosphate [Mass/Vol] 4.8 mg/dL Normal 2.7-4.8 [facility] Comment on above: Order Comment: Speci [facility] Type: BLOOD SPECIMEN Ordering Facility: [facility] Address: [address] Performed By: #### 1 9123-9, 2777-1, 49252-3 #### [facility] CLIA [id number] [address] [place] [address] [place] TSH BLDon 05-03-2022 TSH Qn 1.590 m[IU]/L 0.270 - 4.200 mIU/L [facility] TSH SerPl-aCncon 05-03-2022 TSH Qn 1.590 m[IU]/L Normal 0.270-4.200 [facility] Comment on above: Order Comment: Speci men Type: BLOOD SPECIMEN Ordering Facility: [facility] Address: [address] Performed By: #### 1 989-3 #### [facility] CLIA [id number] [address] [facility] [address]K [id number] [place] Vital Signs Date Time Vital Sign Value Performing Clinician Michelle trotter 06-13-2023 14:45-0400 Body height 162.6 cm Tiera Crys SEPTIC TANK SETTER.TACKING MACHINE OPERATOR Work Phone: [facility] 06-13-2023 14:45-0400 Body weight 88.45 kg Tiera Crys SEPTIC TANK SETTER.TACKING MACHINE OPERATOR Work Phone: [facility] 06-13-2023 14:45-0400 Diastolic blood pressure 83 mm[Hg] Tiera Crys SEPTIC TANK SETTER.TACKING MACHINE OPERATOR Work Phone: [facility] 06-13-2023 14:45-0400 Heart rate 80 /min Tiera Crys SEPTIC TANK SETTER.TACKING MACHINE OPERATOR Work Phone: [facility] 06-13-2023 14:45-0400 Systolic blood pressure 130 mm[Hg] Tiera Crys SEPTIC TANK SETTER.TACKING MACHINE OPERATOR Work Phone: [facility] 01-10-2023 11:01-0500 Body height 162.6 cm Tiera Crys SEPTIC TANK SETTER.TACKING MACHINE OPERATOR Work Phone: [facility] 01-10-2023 11:01-0500 Body weight 86.64 kg Tiera Crys SEPTIC TANK SETTER.TACKING MACHINE OPERATOR Work Phone: [facility] 01-10-2023 11:01-0500 Diastolic blood pressure 81 mm[Hg] Tiera Crys SEPTIC TANK SETTER.TACKING MACHINE OPERATOR Work Phone: [facility] 01-10-2023 11:01-0500 Heart rate 76 /min Tiera Crys SEPTIC TANK SETTER.TACKING MACHINE OPERATOR Work Phone: [facility] 01-10-2023 11:01-0500 Systolic blood pressure 130 mm[Hg] Tiera Crys SEPTIC TANK SETTER.TACKING MACHINE OPERATOR Work Phone: [facility] 05-03-2022 15:05-0400 Body height 162.6 cm Tiera Crys SEPTIC TANK SETTER.TACKING MACHINE OPERATOR Work Phone: [facility] 05-03-2022 15:05-0400 Body weight 89.63 kg Tiera Crys SEPTIC TANK SETTER.TACKING MACHINE OPERATOR Work Phone: [facility] 05-03-2022 15:05-0400 Diastolic blood pressure 83 mm[Hg] Tiera Spangler SEPTIC TANK SETTER.TACKING MACHINE OPERATOR Work Phone: [facility] 05-03-2022 15:05-0400 Heart rate 75 /min Tiera Spangler SEPTIC TANK SETTER.TACKING MACHINE OPERATOR Work Phone: [facility] 05-03-2022 15:05-0400 Systolic blood pressure 182 mm[Hg] Tiera Spangler SEPTIC TANK SETTER.TACKING MACHINE OPERATOR Work Phone: [facility] Encounters Encounter Date Encounter Type Care Provider Facility Start: 02-01-2024 End: 02-01-2024 ambulatory BOSTON ABDI Not Available Start: 12-26-2023 End: 12-26-2023 ambulatory TIERA SPANGLER Facility:[facility] Start: 12-18-2023 End: 12-19-2023 ambulatory BOSTON ABDI Not Available Start: 11-28-2023 End: 11-28-2023 ambulatory MADDISON MENDEZ Not Available Start: 11-23-2023 End: 11-23-2023 ambulatory BOSTON ABDI Not Available Start: 11-15-2023 Telephone encounter Tiera Spangler APRN.TACKING MACHINE OPERATOR Work Phone: [facility] Comment on above: Patient Update Start: 11-08-2023 Orders Only Tiera Mendez and SEPTIC TANK SETTER.TACKING MACHINE OPERATOR Work Phone: [facility] Comment on above: Benign hypertension with chronic kidney disease, stage IV (HCC) (Primary Dx) Start: 11-06-2023 Telephone encounter Tiera Spangler SEPTIC TANK SETTER.TACKING MACHINE OPERATOR Work Phone: [facility] Comment on above: Results Start: 11-06-2023 End: 11-06-2023 ambulatory FLORENCE SKINNER Not Available Start: 10-23-2023 Telephone encounter Tiera Spangler APRN.TACKING MACHINE OPERATOR Work Phone: [facility] Comment on above: Results Start: 10-10-2023 Telephone encounter Tiera Spangler SEPTIC TANK SETTER.TACKING MACHINE OPERATOR Work Phone: [facility] Comment on above: Critical Results Start: 10-09-2023 Telephone encounter Tiera L Crys SEPTIC TANK SETTER.TACKING MACHINE OPERATOR Work Phone: [facility] Comment on above: Lab Orders Start: 07-20-2023 Telephone encounter Tiera Sultana Crys NGN.TACKING MACHINE OPERATOR Work Phone: [facility] Comment on above: Medication Question Start: 06-13-2023 End: 06-13-2023 ambulatory TIERA Kayy SPANGLER Facility:[facility] Start: 06-13-2023 End: 06-13-2023 Patient encounter procedure Tiera Edwardsland SEPTIC TANK SETTER.TACKING MACHINE OPERATOR Work Phone: [facility] Comment on above: Benign hypertension with chronic kidney disease, stage IV (HCC) (Primary Dx); CKD (chronic kidney disease) stage 4, GFR 15-29 ml/min (HCC); Proteinuria, unspecified type; Hyperkalemia; 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, unspecified whether end worker insulin use (HCC) Start: 04-26-[address] ISSA NORTON [facility] ity:H1 Start: 03-27-2023 End: 03-27-[address] JORGE RUIZ . Facility:[facility] Start: 03-25-2023 End: 03-26-[address] ISSA NORTON Facility:[facility] Start: 01-10-2023 End: 01-11-2023 ambulatory TIERA SPANGLER Facility:[facility] Start: 01-10-2023 End: 01-10-2023 Patient encounter procedure Tiera Kayy Spangler SEPTIC TANK SETTER.TACKING MACHINE OPERATOR Work Phone: [facility] Comment on above: Benign hypertension with chronic kidney disease, stage IV (HCC) (Primary Dx); CKD (chronic kidney disease) stage 4, GFR 15-29 ml/min (HCC); Proteinuria, unspecified type; Hyperkalemia; 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, unspecified whether end worker insulin use (HCC); Vitamin D deficiency Start: 11-04-2022 End: 11-05-[address] SHAHRZAD AKBAR . Facility:[facility] Start: 09-14-2022 End: 09-15-[address] ISSA NORTON Facility:[facility] Start: 09-13-2022 End: 09-14-[address] ISSA NORTON Facility:[facility] Start: 05-17-2022 Telephone encounter Marylu gregory Work Phone: [facility] Comment on above: Results Start: 05-17-2022 End: 05-18-[address] ISSA NORTON Facility:[facility]1 Start: 05-04-2022 Telephone encounter Tiera Spangler SEPTIC TANK SETTER.TACKING MACHINE OPERATOR Work Phone: [facility] Comment on above: Results Start: 05-03-2022 End: 05-04-2022 ambulatory TIERA SPANGLER Facility:[facility] Start: 05-03-2022 End: 05-03-2022 Patient encounter procedure Tiera Spangler SEPTIC TANK SETTER.TACKING MACHINE OPERATOR Work Phone: [facility] Comment on above: Benign hypertension with chronic kidney disease, stage IV (HCC) (Primary Dx); CKD (chronic kidney disease) stage 4, GFR 15-29 ml/min (HCC); Proteinuria, unspecified type; Hyperkalemia; 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, unspecified whether half-way insulin use (HCC); Vitamin D deficiency; Chronic combined systolic and diastolic congestive heart failure (HCC) Plan of Treatment Date Care Activity Detail Author Start: 12-05-2031 Urine microalbumin profile DTaP,Tdap,Td Vaccine (3 - Td or Tdap) [facility] Start: 01-10-2024 Complete blood count Hemoglobin/Dhaval tocrit [facility] Start: 01-10-2024 Creatinine measurement Serum Creatin ine [facility] Start: 01-10-2024 HEMOGLOBIN/HEMATOCRIT HEMOGLOBIN/HEM ATOCRIT [facility] Start: 01-10-2024 SERUM CREATININE SERUM CREATININE Cl [facility] Start: 11-16-2023 Hemoglobin A1c measurement HbA1C [facility] Start: 11-16-2023 Hemoglobin A1c/Hemoglobin.total in Blood HbA1C [facility] Start: 11-08-2023 End: 02-07-2024 Renal function 2000 panel - Serum or Plasma RENAL FUNCTION PANEL Lab Routine Benign hypertension with chronic kidney disease, stage IV (HCC) Expected: 11/08/2023, Expires: 02/07/2024 [facility] Work Phone: Comment on above: Expected: 11/08/2023 , Expires: 02/07/2024 Start: 10-14-2023 End: 12-14-2023 25-hydroxyvitamin D3 [Mass/volume] in Serum or Plasma VITAMIN D 25 HYDROXY Lab Routine Benign hypertension with chronic kidney disease, stage IV (HCC) CKD (chronic kidney disease) stage 4, GFR 15-29 ml/min (HCC) Proteinuria, unspecified type Hyperkalemia 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, unspecified whether half-way insulin use (HCC) Expected: 10/14/2023, Expires: 12/14/2023 [facility] Work Phone: Comment on above: Expected: 10/14/2023 , Expires: 12/14/2023 Start: 10-14-2023 End: 12-14-2023 ALBUMIN/CREAT RATIO RND UR ALBUMIN/CREAT RATIO RND UR Lab Routine Benign hypertension with chronic kidney disease, stage IV (HCC) CKD (chronic kidney disease) stage 4, GFR 15-29 ml/min (HCC) Proteinuria, unspecified type Hyperkalemia 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, unspecified whether half-way insulin use (HCC) Expected: 10/14/2023, Expires: 12/14/2023 [facility] Work Phone: Comment on above: Expected: 10/14/2023 , Expires: 12/14/2023 Start: 10-14-2023 End: 12-14-2023 CBC panel - Blood by Automated count CBC Lab Routine Benign hypertension with chronic kidney disease, stage IV (HCC) CKD (chronic kidney disease) stage 4, GFR 15-29 ml/min (HCC) Proteinuria, unspecified type Hyperkalemia 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, unspecified whether half-way insulin use (HCC) Expected: 10/14/2023, Expires: 12/14/2023 [facility] Work Phone: Comment on above: Expected: 10/14/2023 , Expires: 12/14/2023 Start: 10-14-2023 End: 12-14-2023 Parathyrin.intact [Mass/volume] in Serum or Plasma PTH INTACT BLD Lab Routine Benign hypertension with chronic kidney disease, stage IV (HCC) CKD (chronic kidney disease) stage 4, GFR 15-29 ml/min (HCC) Proteinuria, unspecified type Hyperkalemia 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, unspecified whether half-way insulin use (HCC) Expected: 10/14/2023, Expires: 12/14/2023 [facility] Work Phone: Comment on above: Expected: 10/14/2023 , Expires: 12/14/2023 Start: 10-14-2023 End: 12-14-2023 Renal function 2000 panel - Serum or Plasma RENAL FUNCTION PANEL Lab Routine Benign hypertension with chronic kidney disease, stage IV (HCC) CKD (chronic kidney disease) stage 4, GFR 15-29 ml/min (HCC) Proteinuria, unspecified type Hyperkalemia 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, unspecified whether half-way insulin use (HCC) Expected: 10/14/2023, Expires: 12/14/2023 [facility] Work Phone: Comment on above: Expected: 10/14/2023 , Expires: 12/14/2023 Start: 08-11-2023 Hemoglobin A1c/Hemoglobin.total in Blood HBA1C [facility] Start: 07-28-2023 Covid-19 Vaccine () Covid-19 Vaccine () [facility] Start: 07-28-2023 [facility] Start: 05-03-2023 HEMOGLOBIN/HEMATOCRIT HEMOGLOBIN/HEM ATOCRIT [facility] Start: 05-03-2023 Hepatitis B surface antibody level LDL CHOLESTEROL [facility] Start: 05-03-2023 SERUM CREATININE SERUM CREATININE [facility] Start: 01-10-2023 End: 03-12-2023 25-hydroxyvitamin D3 [Mass/volume] in Serum or Plasma [facility] Work Phone: Comment on above: Expected: 01/10/2023 , Expires: 03/12/2023 Start: 01-10-2023 End: 03-12-2023 Creatinine [Mass/volume] in Urine collected for unspecified duration [facility] Work Phone: Comment on above: Expected: 01/10/2023 , Expires: 03/12/2023 Start: 01-10-2023 End: 03-12-2023 Protein [Mass/volume] in Urine [facility] Work Phone: Comment on above: Expected: 01/10/2023 , Expires: 03/12/2023 Start: 01-07-2023 COVID-19 VACCINE (5 - Moderna series) COVID-19 VACCINE (5 - Moderna series) [facility] Start: 12-21-2022 SERUM CREATININE SERUM CREATININE [facility] Start: 11-27-2022 ADVANCE DIRECTIVE DISCUSSION ADVANCE DIRECTIVE DISCUSSION [facility] Start: 11-27-2022 DEPRESSION ASSESSMENT DEPRESSION ASS ESSMENT [facility] Start: 07-28-2022 Influenza vaccination [facility] Start: 05-06-2022 COVID-19 VACCINE (4 - Booster for Moderna series) COVID-19 VACCINE (4 - Booster for Moderna series) [facility] Start: 12-29-2021 Hemoglobin A1c/Hemoglobin.total in Blood HBA1C [facility] Start: 11-27-2021 ADVANCE DIRECTIVE DISCUSSION ADVANCE DIRECTIVE DISCUSSION [facility] Start: 09-18-2021 Hemoglobin A1c/Hemoglobin.total in Blood HBA1C [facility] Start: 11-12-2020 Hepatitis B surface antibody level LDL CHOLESTEROL [facility] Start: 2008 BONE DENSITY BONE DENSITY [facility] Start: 2008 Bone Density Screening Bone Density Screening [facility] Start: 2008 Screening for osteoporosis Bone Density Screening [facility] Start: 2003 Hepatitis B Vaccine (1 of 3 - Risk 3-dose series) Hepatitis B Vaccine (1 of 3 - Risk 3-dose series) [facility] Start: 2003 RSV Vaccine (1 - 1-d ose 60+ series) RSV Vaccine (1 - 1-dose 60+ series) [facility] Start: 1993 SHINGRIX VACCINE (1 of 2) SHINGRIX VACCINE (1 of 2) [facility] Start: 1962 Urine microalbumin profile DTAP,TDAP,TD (1 - Tdap) [facility] Start: 1961 ANNUAL PCP TEAM INSPECTOR AIDE ZEUS DISEASE VISIT ANNUAL PCP TEAM CHRONIC DISEASE VISIT [facility] Start: 1961 BP CONTROLLED (<130/80) BP CONTROLLE D (<130/80) [facility] Start: 1955 Adult depression screening assessment DEPRESSION SCREENING [facility] Start: 1953 3 comp foot exam completed DIABETIC FOOT EXAM [facility] Start: 1953 Diabetic foot examination Diabetic Foot Exam [facility] Start: 1953 Glaucoma screening Dilated Retinal E xam [facility] Start: 1953 Hepatitis C antibody , confirmatory test DILATED RETINAL EXAM [facility] Start: 1949 Pneumococcal Vaccine : 65+ (1 - PCV) Pneumococcal Vaccine: 65+ (1 - PCV) [facility] Start: 1949 Pneumococcal Vaccine : 65+ (1 of 2 - PCV) Pneumococcal Vaccine: 65+ (1 of 2 - PCV) [facility] Start: 1949 PNEUMOCOCCAL: 65+ (1 - PCV) PNEUMOCOCCAL: 65+ (1 - PCV) [facility] Immunizations Immunization Date Immunization Notes Care Provider Fa cility 10-17-2022 influenza virus vacc ine, unspecified formulation Tiera Spangler SEPTIC TANK SETTER.TACKING MACHINE OPERATOR Work Phone: [facility] Payers Date Payer Category Payer Private Health Insurance [facility] AARP SUPPLEMENT [id number] 2018-Present [phone] [address] [place] [address] Indemnity [id number] 2018 Private Health Insurance [facility] AARP SUPPLEMENT [id number] 2018-Present [phone] [address] [place] [address] Indemnity [id number] 2008 Medicare MEDICARE MEDICAR E A AND B [id number] 2008-Present [phone] [place] [address] Medicare [id number] 2008 Medicare MEDICARE MEDICAR E A AND B [id number] 2008-Present [phone] [place] [address] Medicare [id number] 1959 Medicare [id number] 1959 Unknown [id number] 1943 Unknown [id number] 1943 Unknown [id number] 1943 Unknown [id number] 1943 Unknown [id number] 1943 Unknown [id number] 1943 Unknown [id number] 1943 Unknown [id number] 1943 Unknown [id number] 1943 Unknown [id number] .1259 1943 Unknown [id number] 1943 Unknown [id number] 1943 Unknown [id number] Social History Date Type Detail Facility Start: 11-12-2019 End: 01-10-2023 Tobacco smoking status NHIS Never smoked tobacco [facility] Start: 11-12-2019 End: 01-10-2023 Tobacco use and exposure Smokeless tobacco non-user [facility] Start: 05-03-2022 End: 06-13-2023 Alcohol intake Lifetime non-drinker (finding) [facility] Start: 11-12-2019 History SDOH Alcohol Frequency 1 [facility] Start: 1945 Sex Assigned At Not on file [facility] Start: 04-23-2022 End: 05-03-2022 Exposure to SARS-CoV-2 (event) Not sure [facility] Start: 11-12-2019 End: 11-03-2020 History of Social function [facility] Work Phone: Start: 11-12-2019 End: 11-03-2020 Alcohol Use Disorder Identification Test - Consumption [AUDIT-C] [facility] Work Phone: How often to you hav e a drink containing alcohol? Never [facility] Work Phone: Average Number of Drinks Not on file [facility] Clinical Notes 05-03-2022 to 12-26-2023 Telephone Encounter - Brigitte Quinones OCCA - 11/15/2023 11:50 AM ESTTelephone Encounter - Candace Veliz - 11/06/2023 4:21 PM ESTTelephone Encounter - Akshat Schaeffer - 10/23/2023 10:02 AM EST Note Date & Type Note Facility 12-26-2023 Note HNO ID: [id number] Author: TIERA SPANGLER APRN.TACKING MACHINE OPERATOR Service: ? Author Type: Nurse Practitioner Type: Progress Notes Filed: 12/26/2023 14:31 Note Text: Pt is an 78 yo female here for follow up CKD stage 4 in the setting of proteinuria, DM as well as HTN She was last seen 05/2023. Most recently had issues with increasing BUN/SCr after long haul resp illness She required admission to local hospital-received IV fluids. Started lokelma 10mg every day. On entresto 97/103 mg BID. Back on torsemide 40mg three times a week. Home BPs 132/60 156/64 143/54 122/51 118/44 PAST MEDICAL HISTORY Diagnosis Date Diabetes mellitus (HCC) 1977 HTN (hypertension) Uterine cancer (HCC) 1971 hysterectomy General no fever no weight loss no fatigue no night sweats Head / Neck no metallic or bitter taste Cardiac no chest pain or pressure no palpitations no dizziness no lightheadedness no syncope Vascular no edema Pulmonary no dyspnea on exertion no cough GI no loss of appetite no nausea no emesis no diarrhea no constipation no abdominal pain no decreased urine no pink or red urine no flank pain no groin pain Heme no easy bruising Other no daytime somnolence Creatinine Date Value Ref Range Status 01/10/2023 2.00 (H) 0.58 - 0.96 mg/dL Final 05/03/2022 1.99 (H) 0.58 - 0.96 mg/dL Final 12/21/2021 2.02 (H) 0.58 - 0.96 mg/dL Final Potassium Date Value Ref Range Status 01/10/2023 4.9 3.7 - 5.1 mmol/L Final 05/03/2022 5.7 (H) 3.7 - 5.1 mmol/L Final 12/21/2021 5.4 (H) 3.7 - 5.1 mmol/L Final Lab work from 12/01 obtained Na 136 K 4.6 Chloride 102 Bicarb 27.4 BUN 64 Creatinine 1.96 Exam General: NAD, alert Neck: No carotid bruits, adenopathy. Supple. No JVD Lungs: CTA bilaterally Heart: RRR without murmur or rub Extremities: No edema BP - standardized method Pulse 1 BP #1: 207/71 Pulse #1: 76 beats/min 2 BP #2 : 201/65 Pulse #2 : 76 beats/min 3 BP #3 : 195/70 Pulse #3 : 74 beats/min Average Average BP: 201/69 Average Pulse: 75 beats/min Orthostatic vitals Supine Sitting Standing BP cuff location BP cuff location: Left lower arm BP cuff size BP cuff size: large adult Comments for BP values First BP (right) First BP (left) Impression/plan CKD stage 4-proteinuric, in the setting of HTN and DM-Scr baseline ~ 1.8-2.2-Stable on repeat labs 12/01-no changes. She is on ARB and Kerendia. Is not using NSAIDs. Follow labs HTN-well controlled on current regimen at home Volume stable. Hyperkalemia-now on lokelma per cardiology-her last K stable as noted above. Vitamin D deficiency-on supplement 4000U D 3-follow labs DM-last A1C 8.9. She follows in [place], [place]. Continue endo follow up Plan No changes Labs prior to next follow up Has follow up in [address] Headley. Will keep appt and see me in 6 months Tiera Spanglre APRN.TACKING MACHINE OPERATOR [facility] 11-15-2023 Miscellaneous Notes Contacted patient to advise her of the message below from Tiera Spangler APRN, CNP. She agreed with plan as stated below and will mostly likely get it done today. Please remind patient she is due for nonfasting labs at [facility]. I sent order last week. EFE Mckeon documented in this encounter [facility] 11-06-2023 Miscellaneous Notes Took a call from Erika who works at [facility]. Erika was calling with some critical lab values for Tiera Spangler. Took the following message over phone: Critical BUN of 117. Patient in question was verified using full name and date of . Candace Veliz November 06, 2023 4:24 PM documented in this encounter [facility] 10-23-2023 Miscellaneous Notes I called the Medical Records department at [facility]. My call went to [employer]. I did not leave a message. I will try to call back @ [phone], Medical Records press 2, then 2. Akshat Schaeffer ----- Message from Tiera Spangler APRN.TACKING MACHINE OPERATOR sent at 10/23/2023 8:57 AM EST ----- Please call [facility] and have repeat BUN and creatinine faxed over Tiera Spangler APRN.TACKING MACHINE OPERATOR documented in this encounter [facility] 10-10-2023 Miscellaneous Notes Called pt to review labs Results not fully available to me from outside lab Would like to review BUN 124 Any med changes? How is BP? No answer, LMTCB Tiera Spangler APRN.TACKING MACHINE OPERATOR Patient s identity has been confirmed by name and birthdate: Yes Call received from Lela at [facility] to report a critical value for BUN with a result of 124. Tiera Spangler APRN CNP was notified of the result at 2:46PM. Liban Zuñiga, RN documented in this encounter [facility] 10-09-2023 Miscellaneous Notes The requested document has been faxed to [phone] . Received a fax confirmation of [place] on 10/09/23. Akshat Schaeffer Varsha Nieves is calling Tiera Spangler APRN.TACKING MACHINE OPERATOR today needs labs ordered and faxed over to [facility]. F: [phone] No chief complaint on file. Patient has been identified by name and birthdate. Duration of symptoms: N/A Person calling: self Call patient at: at home [phone] (home) [phone] (cell) Was an appointment scheduled: No Closing statement: Results or non-symptom based questions: Thank you for calling [facility], your call will be returned within the next business day. Elva Beckford documented in this encounter [facility] 07-20-2023 Miscellaneous Notes That is fine Please send req for [...] calling: self Call patient at: at home [phone] (home) [phone] (cell) Was an appointment scheduled: No Closing statement: Results or non-symptom based questions: Thank you for calling [facility], your call will be returned within the next business day. Elva Beckford documented in this encounter [facility] 06-13-2023 Note HNO ID: [id number] Author: Tiera Spangler APRN.CNP Service: ? Author Type: Nurse Practitioner Type: [...] DM-uncontrolled on last lab. She follows in [place], [place]. Continue endo follow up Plan Have labs faxed over from [facility] F/U 4 months Tiera Spangler APRN.TACKING MACHINE OPERATOR [facility] 06-13-2023 History of Presen t illness Narrative [...] DM-uncontrolled on last lab. She follows in [place], [place]. Continue endo follow up Plan Have labs faxed over from [facility] F/U 4 months Tiera Spangler APRN.TACKING MACHINE OPERATOR documented in this encounter [facility] 01-10-2023 Note HNO ID: [id number] Author: Tiera Spangler APRN.TACKING MACHINE OPERATOR Service: ? Author Type: Nurse Practitioner Type: Progress Notes Filed: 01/10/2023 11:31 AM Note Text: Pt is a 77 yo female here for follow up of CKD stage 4 in the setting of proteinuria (non-nephrotic range), DM and HTN. Last OV 04/2022. Kayexalate powder restarted after that visit. Cardiology has changed it to [id number] will run out. She has no new [...] home as well as here-she sees cardiology [id number] and her BPs are controlled there. Hyperkalemia-now [...] DM-uncontrolled on last lab. She follows in [place], [place]. Last A1C 8.5-continue endo follow up Heme-Hgb WNL Plan Labs Continue lokelma 10gm daily 30 day free coupon given to augment samples She will let me know if cardiology cannot sample-may need to go to specialty pharmacy F/U 4 months Tiera Spangler APRN.CNP [facility] 01-10-2023 Miscellaneous Notes Addended by: TIERA SPANGLER on: 01/10/2023 11:34 AM Modules accepted: Orders documented in this encounter [facility] 01-10-2023 History of Presen t illness Narrative Pt is a 77 yo female here for follow up of CKD stage 4 in the setting of proteinuria (non-nephrotic range), DM and HTN. Last OV 04/2022. Kayexalate powder restarted after that visit. Cardiology has changed it to [id number] will run out. She has no new [...] home as well as here-she sees cardiology [id number] and her BPs are controlled there. Hyperkalemia-now [...] DM-uncontrolled on last lab. She follows in [place], [place]. Last A1C 8.5-continue endo follow up Heme-Hgb WNL Plan Labs Continue lokelma 10gm daily 30 day free coupon given to augment samples She will let me know if cardiology cannot sample-may need to go to specialty pharmacy F/U 4 months Tiera Spangler APRN.TACKING MACHINE OPERATOR documented in this encounter [facility] 05-17-2022 Miscellaneous Notes Received a page from lab at [place] regarding critical lab results. Critical Glucose of [...] 2022, 1:16 PM documented in this encounter [facility] 05-04-2022 Miscellaneous Notes The requested document has been faxed to [phone]. Received a fax confirmation of [place] on [...] mail req She is agreeable Tiera Spangler APRN.DORINA documented in this encounter [facility] 05-03-2022 History of Presen t illness Narrative [...] labs. HTN-well controlled at home-she sees cardiology [id number] and her BPs are controlled there. Qsqjewboyuji-uxlfvogxnhdg-ec longer on treatment. Didn't tolerate veltassa and avoiding lokelma given CHF-update labs Vitamin D deficiency-on supplement 4000U D 3-update labs DM-uncontrolled on last lab. She follows in [place], [place]. Last A1C 8.9-continue endo follow up Plan Labs Cardiology has sent lab request for add ons Will have faxed to Dr Norton [phone] F/U 4 months Tiera Spangler APRN.TACKING MACHINE OPERATOR documented in this encounter [facility] Evaluation note Diagnosis Benign hypertension with chronic kidney disease, stage IV (HCC)- Primary Benign hypertensive kidney disease with chronic kidney disease stage I through stage IV, or unspecified CKD (chronic kidney disease) stage 4, GFR 15-29 ml/min (HCC) Chronic kidney disease, Stage IV (severe) Proteinuria, unspecified type Hyperkalemia Hyperpotassemia 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, unspecified whether end worker insulin use (HCC) Vitamin D deficiency Unspecified vitamin D deficiency Chronic combined systolic and diastolic congestive heart failure (HCC) Chronic combined systolic and diastolic heart failure documented [facility] this [facility] Diagnosis Benign hypertension with chronic kidney disease, stage IV (HCC)- Primary Benign hypertensive kidney disease with chronic kidney disease stage I through stage IV, or unspecified CKD (chronic kidney disease) stage 4, GFR 15-29 ml/min (HCC) Chronic kidney disease, Stage IV (severe) Proteinuria, unspecified type Hyperkalemia Hyperpotassemia 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, unspecified whether half-way insulin use (HCC) Vitamin D deficiency Unspecified vitamin D deficiency [facility] Diagnosis Benign hypertension with chronic kidney disease, stage IV (HCC)- Primary Benign hypertensive kidney disease with chronic kidney disease stage I through stage IV, or unspecified CKD (chronic kidney disease) stage 4, GFR 15-29 ml/min (HCC) Chronic kidney disease, Stage IV (severe) Proteinuria, unspecified type Hyperkalemia Hyperpotassemia 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, unspecified whether end worker insulin use ([facility]) documented in this encounter [facility] Diagnosis Benign hypertension with chronic kidney disease, stage IV (HCC)- Primary Benign hypertensive kidney disease with chronic kidney disease stage I through stage IV, or unspecified documented in this encounter [facility] Summary Purpose Family History No Family History [...] or prosecute any alcohol or drug abuse patient.[facility] the event this information is protected by the Federal Confidentiality of Alcohol and Drug Abuse Patient Records regulations: The Federal rules restrict any use of the information to criminally investigate or prosecute any alcohol or drug abuse patient.[facility] the event this information is protected by the Federal Confidentiality of Alcohol and Drug Abuse Patient Records regulations: The Federal rules restrict any use of the information to criminally investigate or prosecute any alcohol or drug abuse patient.[facility] the event this information is protected by the Federal Confidentiality of Alcohol and Drug Abuse Patient Records regulations: The Federal rules restrict any use of the information to criminally investigate or prosecute any alcohol or drug abuse patient.[facility] the event this information is protected by the Federal Confidentiality of Alcohol and Drug Abuse Patient Records regulations: The Federal rules restrict any use of the information to criminally investigate or prosecute any alcohol or drug abuse patient.[facility] the event this information is protected by the Federal Confidentiality of Alcohol and Drug Abuse Patient Records regulations: The Federal rules restrict any use of the information to criminally investigate or prosecute any alcohol or drug abuse patient.[facility] the event this information is protected by the Federal Confidentiality of Alcohol and Drug Abuse Patient Records regulations: The Federal rules restrict any use of the information to criminally investigate or prosecute any alcohol or drug abuse patient.[facility] [place] the event this information is protected by the Federal Confidentiality of Alcohol and Drug Abuse Patient Records regulations: The Federal rules restrict any use of the information to criminally investigate or prosecute any alcohol or drug abuse patient.[facility] [place] the event this information is protected by the Federal Confidentiality of Alcohol and Drug Abuse Patient Records regulations: The Federal rules restrict any use of the information to criminally investigate or prosecute any alcohol or drug abuse patient.[facility] [place] the event this information is protected by the Federal Confidentiality of Alcohol and Drug Abuse Patient Records regulations: The Federal rules restrict any use of the information to criminally investigate or prosecute any alcohol or drug abuse patient.[facility] [place] the event this information is protected by the Federal Confidentiality of Alcohol and Drug Abuse Patient Records regulations: The Federal rules restrict any use of the information to criminally investigate or prosecute any alcohol or drug abuse patient.[facility] [place] the event this information is protected by the Federal Confidentiality of Alcohol and Drug Abuse Patient Records regulations: The Federal rules restrict any use of the information to criminally investigate or prosecute any alcohol or drug abuse patient.[facility] [place] Reason for Visit (unrecogniz ed section and content) Reason Comments Follow Up Benign hypertension with chronic kidney disease, stage IV - 4 month f/u Reason Comments Results Reason Comments Follow Up Ckd Reason Comments Medication Question Reason Comments Lab Orders Reason Comments Critical Results Reason Comments Patient Update Care Teams (unrecognized sec tion and content) Lamp Assembler Relationship Specialty Start Date End Date Tiera Spangler APRN.TACKING MACHINE OPERATOR [address] [place] [address] Primary Staff Physician Nephrology 12/23/21 Lamp Assembler Relationship Specialty Start Date End Date Tiera Spangler APRN.TACKING MACHINE OPERATOR [address] [place] [address] Primary Staff Physician Nephrology 12/23/21 Lamp Assembler Relationship Specialty Start Date End Date Tiera Spangler APRN.TACKING MACHINE OPERATOR [address] [place], [place] [id number] Primary Staff Physician Nephrology 12/23/21 Lamp Assembler Relationship Specialty Start Date End Date Tiera Spangler SEPTIC TANK SETTER.TACKING MACHINE OPERATOR [address] [place] [address] Primary Staff Physician Nephrology 12/23/21 Lamp Assembler Relationship Specialty Start Date End Date Tiera Spangler SEPTIC TANK SETTER.TACKING MACHINE OPERATOR [address] [place] [address] Primary Staff Physician Nephrology 12/23/21 Lamp Assembler Relationship Specialty Start Date End Date Tiera Spangler SEPTIC TANK SETTER.TACKING MACHINE OPERATOR [address] [place], [place] [id number] Primary Staff Physician Nephrology 12/23/21 Lamp Assembler Relationship Specialty Start Date End Date Tiera Spangler, SEPTIC TANK SETTER.TACKING MACHINE OPERATOR [address] [place], [place] [id number] Primary Staff Physician Nephrology 12/23/21 Lamp Assembler Relationship Specialty Start Date End Date Tiera Spangler, SEPTIC TANK SETTER.TACKING MACHINE OPERATOR [address] [place], [place] [id number] Primary Staff Physician Nephrology 12/23/21 INFORMATION SOURCE (unrecogn ized section and content) DATE CREATED AUTHOR 01/11/2023 [facility] DATE CREATED AUTHOR AUTHOR'S ORGANIZ ATION 05/05/2023 [facility] DATE CREATED AUTHOR AUTHOR'S ORGANIZ ATION 12/27/2023 [facility] DATE CREATED AUTHOR AUTHOR'S ORGANIZ ATION 02/02/2024 [facility] EPIC FOR RECORDS PERTAINING TO PATIENTS WHO [...] BE BASED ON THE PRIMARY CLINICAL RECORDS. [facility] [employer] [facility]. provides no warranty or guarantee of the accuracy or completeness of information in this document.
[2024-02-05 15:33] LABS: Basophils Absolute Auto 0.1 10^3/uL (0.0-0.1); Basophils Percent Auto 1.1 % (0.2-2.0); Eosinophils Absolute Auto 0.3 10^3/uL (0.0-0.7); Eosinophils Percent Auto 3.1 % (0.9-7.0); Hematocrit 38.7 % (36.0-48.0); Hemoglobin 12.4 g/dL (12.0-16.0); Immature Granulocytes Abs Auto 0.02 10^3/uL (0.00-0.03); Immature Granulocytes Pct Auto 0.2 % (0.0-0.5); Lymphocytes Percent Auto 21.2 % (20.5-60.0); Mean Corpuscular Hemoglobin 29.6 pg (26.7-34.0); Mean Corpuscular Volume 92.4 fL (81.0-99.0); Mean Platelet Volume 10.2 fL (9.5-13.5); Monocytes Absolute Auto 0.8 10^3/uL (0.3-0.8); Monocytes Percent Auto 8.7 % (1.7-12.0); Neutrophils Absolute Auto 6.1 10^3/uL (1.4-6.5); Neutrophils Percent Auto 65.7 % (43.0-75.0); Platelet Count 243 10^3/uL (150-450); Red Blood Count 4.19 10^6/uL (4.20-5.40); Red Cell Distribution Width 13.1 % (11.0-15.0); White Blood Count 9.3 10^3/uL (4.0-11.0)
[2024-02-05 15:47] LABS: Albumin Level 3.3 g/dL (3.4-5.0); Anion Gap 14.2; BUN Creatinine Ratio 42.7; Calcium 9.1 mg/dL (8.5-10.1); Carbon Dioxide 27.4 mmol/L (21.0-32.0); Chloride 101 mmol/L (98-107); Estimated GFR (African America 22 (>=60); Estimated GFR (Non-African Ame 18 (>=60); Glucose 319 mg/dL (74-106); Phosphorus 4.6 mg/dL (2.6-4.7); Potassium 4.6 mmol/L (3.5-5.1); Sodium 138 mmol/L (136-145)
[2024-02-05 15:52] LABS: Protein Creatinine Ratio Urine 1.21; Total Protein Urine Random 33.8 mg/dL (<=11.9)
== END 2024-02-05 15:06 | disposition home or self-care (01) ==
LOC: LAB 15:06
DX: R80.9 Proteinuria, unspecified (principal); I12.9 Hypertensive chronic kidney disease with stage 1 through stage 4 chronic kidney disease, or unspecified chronic kidney disease; E87.5 Hyperkalemia; E11.9 Type 2 diabetes mellitus without complications; Z79.4 Long term (current) use of insulin; E55.9 Vitamin D deficiency, unspecified
CPT/HCPCS: 36415; 80069; 82306; 82570; 84156; 85025

== ENCOUNTER 2024-03-08 10:23 | Outpatient (OUT) | payer MEDICARE, SELFPAY ==
--- OUTSIDE RECORDS SUMMARY | 2024-03-08 10:41 | XMS_ITS | CCD ---
Author Organization [facility] [place] Care Team Providers Care Kitchen Helper Name Role Phone Onel GEAR SHAPER SET UP OPERATOR.DORINA Tiera L Unavailable )[phone] CIERRA, DR PARSONS Primary Care Unavailable NOLAN, JOHAN Attending Unavailable NOLAN, JOHAN Consulting Unavailable JOHAN FRANCISCO Admitting Unavailable AHDOOT, JUAN Consulting Unavailable AKBAR ., DR SHAHRZAD Laurent Admitting Unavailable VALONE, DR PARSONS Primary Care Unavailable AKBAR ., DR SHAHRZAD Laurent Attending Unavailable AKBAR ., DR SHAHRZAD Laurent Consulting Unavailable PAY ., DR PATEL Consulting Unavailable AHDOOT, JUAN Consulting Unavailable ELLEN EL Consulting Unavailable VALONE, DR PARSONS Consulting Unavailable [...] Primary Care Unavailable NOLAN, JOHAN Admitting Unavailable NOLAN, JOHAN Attending Unavailable Onel GEAR SHAPER SET UP OPERATOR.DORINATiera L Unavailable [phone] Onel GEAR SHAPER SET UP OPERATOR.DORINA, Tiera L Unavailable )[phone] BOSTON ABDI Attending Unavailable MADDISON MENDEZ Attending Unavailable BOSTON ABDI Attending Unavailable BOSTON ABDI Attending Unavailable FLORENCE SKINNER Attending Unavailable ISSA NORTON Referring Unavailable BOSTON ABDI Attending Unavailable FLORENCE SKINNER Attending Unavailable ISSA NORTON Referring Unavailable TIERA SPANGLER Referring Unavailable TIERA SPANGLER Attending Unavailable TIERA SPANGLER Attending Unavailable MARYLU HEADLEY Attending Unavailable Allergies Allergy Classification Reported Allergen(s) Allergy Type Date of Onset Reaction(s) Facility (18 sources) Acetaminophen / Codeine; Translations: [ACETAMINOPHEN-CO DEINE] Drug Allergy 0 Other: See Comments [facility] (18 sources) benzonatate; Translations: [BENZONATATE] Drug Allergy 0 Vomiting [facility] (18 sources) Cephalexin; Translations: [CEPHALEXIN] Drug Allergy 0 Rash [facility] (18 sources) Ciprofloxacin; Translations: [CIPROFLOXACIN] Drug Allergy 9 Other: See Comments [facility] (18 sources) Clindamycin; Translations: [CLINDAMYCIN] Drug Allergy 9 Other: See Comments [facility] (5 sources) Penicillins; Translations: [PENICILLINS] Drug Allergy 4 Other: See Comments [facility] (13 sources) Penicillins Drug Allergy 4 Other: See Comments [facility] (1 source) benzonatate Drug Allergy 0 [facility] (1 source) Cephalexin Drug Allergy 0 [facility] (1 source) Ciprofloxacin Drug Allergy [facility] (1 source) Clindamycin Drug Allergy [facility] (1 source) Penicillins Drug allergy (disorder) 4 [facility] (1 source) Tylenol-Codeine #3 Drug allergy (disorder) 0 [facility] Medications Completed/Discontinued Medications Medication Drug Class(es) Dates Sig (Normalized) Sig (Original) amLODIPine 5 mg oral tablet (1 source) Dihydropyridine Calcium Channel Rachael Start: 08-10-2021 End: 05-03-2022 amLODIPine (NORVASC) 5 mg tablet Pt akes three times a week 1 tablet 0 08/10/2021 05/03/2022 Discontinued Comment on above: Pt akes three times a week aspirin 81 mg chewable tablet (16 sources) Platelet Aggregation Inhibitor, Nonsteroidal Anti-inflammatory Drug take 1 tablet by mouth once daily aspirin 81 mg chewable tablet Take 81 mg by mouth once daily. 0 Active Comment on above: Take 81 mg by mouth once daily. biotin 10 mg oral capsule (16 sources) Biotin 10,000 mc g cap Take by mouth once daily. 0 Active Comment on above: Take by mouth once d aily. CALCIUM-VITAMIN D3 ORAL (16 sources) CALCIUM-VITAMIN D3 ORAL Take by mouth. 0 Active Comment on above: Take by mouth. carvedilol 25 mg oral tablet (16 sources) alpha-Adrenergic Rachael, beta-Adrenergic Rachael take 1 tablet by mouth twice daily at mealtime carvedilol (COREG) 25 mg tablet Take 25 mg by mouth twice daily with meals. 0 Active Comment on above: Take 25 mg by mouth twice daily with meals. cholecalciferol 0.05 mg oral capsule (16 sources) Vitamin D Start: 11-13-2019 take 1 capsule by mouth once daily Cholecalciferol, Vitamin D3, 50 mcg (2,000 unit) cap Take 1 capsule by mouth once daily. 0 11/13/2019 Active Comment on above: Take 1 capsule by [facility] once daily. insulin glargine,hum.rec.anl og (LANTUS SOLOSTAR U-100 INSULIN SUBCUTANEOUS) (16 sources) inject 34 [IU] by subcutaneous injection once daily insulin glargine,hum.rec.a nlog (LANTUS SOLOSTAR U-100 INSULIN SUBCUTANEOUS) Inject subcutaneously. 34 units daily 0 Active Comment on above: Inject subcutaneousl y. 34 units daily 3 ml insulin lispro-aabc 100 unt/ml pen injector (13 sources) Insulin Analog insulin lispro-aabc (LYUMJEV KWIKPEN) 100 unit/mL insulin pen Inject subcutaneously three times daily before meals. 0 Active insulin lispro-a abc (LYUMJEV KWIKPEN) 100 unit/mL insulin pen Inject subcutaneously three times daily before meals. 0 Active End: 05-03-2022 insulin lispro (HUMALOG KWIK PEN INSULIN) 100 unit/mL inpn Inject subcutaneously three times daily before meals. 0 05/03/2022 Discontinued Comment on above: Inject subcutaneousl y three times daily before meals. KERENDIA 10 mg tablet (16 sources) Start: 01-24-20 take 1 tablet by mouth once daily KERENDIA 10 mg tablet Take 10 mg by mouth once daily. 0 01/24/2022 Active Comment on above: Take 10 mg by mouth once daily. magnesium oxide 500 mg oral tablet (13 sources) take 1 tablet by mouth once daily Magnesium Oxide 500 mg tab Take 500 mg by mouth once daily. 0 Active Comment on above: Take 500 mg by mouth once daily. montelukast 10 mg oral tablet (16 sources) Leukotriene Receptor Antagonist Start: 01-30-20 22 take 1 tablet by mouth once daily montelukast (SINGULAIR) 10 mg tablet Take 10 mg by mouth once daily. 0 01/29/2022 Active Comment on above: Take 10 mg by mouth once daily. multivit,thx,calcium, iron,mins (MULTIVITAMIN AND MINERAL ORAL) (16 sources) multivit,thx,earl cium ,iron,mins (MULTIVITAMIN AND MINERAL [...] mg / valsartan 103 mg oral tablet (17 sources) Angiotensin 2 Receptor Rachael Start: 05-03-20 22 take 1 tablet by mouth twice daily sacubitril-valsartan (ENTRESTO) 97-103 mg tablet Take 1 tablet by mouth twice daily. 0 05/03/2022 Active End: 05-03-2022 take 1 tablet by mouth twice daily sacubitril-valsartan (ENTRESTO) 49-51 mg tablet Take 1 tablet by mouth twice daily. 0 05/03/2022 Discontinued Comment on above: Take 1 tablet by [facility] twice daily. sodium polystyrene sulfonate 14525 mg powder for oral suspension (4 sources) [...] Monday, Monday and Monday sodium zirconium cyclosilicate 23853 mg powder for oral suspension (14 sources) Start: 3 End: 3 take 1 [...] drink immediately. torsemide 20 mg oral tablet (14 sources) Loop Diuretic Start: 3 take 1 [...] day. vitamin e 450 mg oral capsule (16 sources) take 1 capsule by mouth once daily Vitamin E, dl, acetate, 1,000 unit capsule Take 1,000 Units by mouth once daily. 0 Active Comment on above: Take 1,000 Units by mouth once daily. Problems Active Problems Problem Classification Problem Date Documented Da te Episodic/Chronic Chronic kidney disease (9 sources) Chronic kidney disease, unspecified; Translations: [Chronic kidney disease, stage 4 (severe)] Onset: 11-12-2019 Chronic Congestive heart failure; nonhypertensive (17 sources) Chronic combined systolic and diastolic heart failure; Translations: [Chronic combined systolic (congestive) and diastolic (congestive) heart failure] Onset: 11-12-2019 Chronic Diabetes mellitus with complications (20 sources) Type 2 diabetes mellitus; Translations: [Type 2 diabetes mellitus with diabetic chronic kidney disease] Onset: 11-12-2019 Chronic Diabetes mellitus without complication (1 source) Type 2 diabetes mellitus without complications; Translations: [TYPE 2 DM WITHOUT COMPLICATIONS] Onset: 03-28-2023 Chronic Disorders of lipid metabolism (18 sources) Hyperlipidemia; Translations: [Other hyperlipidemia] Onset: 11-12-2019 11-12-2019 Chronic Essential hypertension (17 sources) Essential hypertension; Translations: [Essential (primary) hypertension] Onset: 11-12-2019 11-12-2019 Chronic Fluid and electrolyte disorders (7 sources) Hyperkalemia; Translations: [Hyperkalemia] Onset: 09-18-2022 Episodic Genitourinary symptoms and ill-defined conditions (6 sources) Proteinuria; Translations: [Proteinuria, unspecified] Onset: 02-13-2024 Episodic Hypertension with complications and secondary hypertension [...] deficiency; Translations: [Vitamin D deficiency, unspecified] Onset: 02-13-2024 Chronic Other aftercare (1 source) [facility] (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 of aspirin; Translations: [BED BUG EXTERMINATOR CURRENT USE OF ASPIRIN] Onset: 03-28-2023 Episodic Other aftercare (5 sources) Other 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 manager (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; Translations: [OTH BED BUG EXTERMINATOR CURRENT DRUG THERAPY] Onset: 09-14-2022 Episodic Other screening for suspected conditions (not mental disorders or infectious disease) (6 sources) Other specified abnormal findings of blood chemistry; Translations: [Encounter for screening mammogram for malignant neoplasm of breast] Onset: 09-13-2022 Episodic Other upper respiratory infections (2 sources) [...] Problem Date Documented Da te Episodic/Chronic Other aftercare (3 sources) computer terminal operator (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 of insulin; Translations: [BED BUG EXTERMINATOR CURRENT USE OF INSULIN] Onset: 11-12-2019 Episodic Other lower respiratory disease (1 source) Shortness of breath; Translations: [SHORTNESS OF BREATH] Onset: 11-29-2022 Episodic Other lower respiratory disease (1 source) Dyspnea, unspecified; Translations: [DYSPNEA UNSPECIFIED] Onset: 09-18-2022 Episodic Residual codes; unclassified (3 sources) Transient alteration of awareness; Translations: [TRANSIENT ALTERATION OF AWARENESS] Onset: 11-04-2022 Episodic Syncope (1 source) Syncope and collapse; Translations: [SYNCOPE AND COLLAPSE] Onset: 11-29-2022 Episodic Unclassified (1 source) COUGH, UNSPECIFIED; Translations: [COUGH, UNSPECIFIED] Onset: 03-25-2023 Results Test Name Value Interpretation Reference Range Facility [facility] 02-14-2024 [facility] Telephone (MIDMAV) VARSHA NIEVES ([id number]) 1945 F Date Time Provider Department 02/14/24 MARYLU HEADLEY [facility] During your visit today, we recorded the following information about you: Marylu Headley 02/14/2024 2:19 PM Signed Called patient, kidney function is stable. Her compressed gases tester had wanted her to start sotagliflozin 200mg weekly in place of torsemide 20mg every other day. Reviewed with patient, we will need to monitor her kidney function with this switch. Plan to repeat labs in 2 weeks. Marylu Headley DO February 14, 2024, 2:18 PM Tahir Phoenix MA 02/14/2024 2:28 PM Signed Placed lab order form for renal function panel in the outgoing mail as of 02/14/2024. Tahir Phoenix MA Allergies As of Date: 02/14/2024 Noted Allergy Reaction ACETAMINOPHEN-CODEINE 11/27/1999 14 - Other: See Comments BENZONATATE 11/27/1999 11 - Vomiting CEPHALEXIN 11/27/1999 2 - Rash CIPROFLOXACIN 11/12/2019 14 - Other: See Comments CLINDAMYCIN 11/12/2019 14 - Other: See Comments PENICILLINS 11/07/2014 14 - Other: See Comments Date Reviewed: 02/13/2024 Reviewed by: Tahir Phoenix MA - Fully Assessed Prescriptions as of 02/14/2024 - torsemide (DEMADEX) 20 mg tablet Take [...] once daily. Problem List As Of Date 02/14/2024 Noted Resolved CKD (chronic kidney disease) stage 4, GFR 15-29*11/12/2019 Essential hypertension [I10] 11/12/2019 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 chronic k*11/12/2019 Other hyperlipidemia [E78.49] 11/12/2019 Chronic combined systolic and diastolic congest*11/12/2019 Encounter Status:Closed by MARYLU HEADLEY on 02/14/24 Normal [facility] 25(OH)D3 SerPl-mCncon 2023 25-hydroxyvitamin D3 [Mass/Vol] 55.6 ng/mL Normal 31.0-80.0 [facility] Comment on above: Order Comment: Speci men Type: BLOOD SPECIMEN Ordering Facility: [facility] Address: [address] [place] [address] Result Comment: Clas sification of 25 [place] Vitamin D status: Deficiency/Insufficiency: < or = 30 ng/ml. Sufficiency/Optimal Levels: 31-80 ng/mL Toxicity: > 100 ng/mL. Test performed by chemiluminescent immunoassay. Performed By: #### 1 989-3 #### [facility] CLIA [id number] [address] [place] [address] [place] [address] [place] CBC panel Auto (Bld)on 02-12 Erythrocyte distribution width (RBC) [Ratio] 13.1 % Normal 11.5-15.0 [facility] Comment on above: Order Comment: Speci men Type: BLOOD SPECIMEN Ordering Facility: [facility] Address: [address] [place] [address] Performed By: #### 5 8410-2 #### [facility] CLIA [id number] [place] [address] [place] Hematocrit (Bld) [Volume fraction] 40.6 % Normal 36.0-46.0 [facility] Comment on above: Order Comment: Speci men Type: BLOOD SPECIMEN Ordering Facility: [facility] Address: [address] [place] [address] Performed By: #### 5 8410-2 #### [facility] [place] [id number] [place] [address] [place] Hemoglobin (Bld) [Mass/Vol] 12.9 g/dL Normal 11.5-15.5 [facility] Comment on above: Order Comment: Speci men Type: BLOOD SPECIMEN Ordering Facility: [facility] Address: [address] [place] [address] Performed By: #### 5 8410-2 #### [facility] [place] [id number] [address] [place] [address] [place] MCH (RBC) [Entitic mass] 29.7 pg Normal 26.0-34.0 [facility] Comment on above: Order Comment: Speci men Type: BLOOD SPECIMEN Ordering Facility: [facility] Address: [address] [place] [address] Performed By: #### 5 8410-2 #### [facility] [place] [id number] [place] [address] [place] MCHC (RBC) [Mass/Vol] 31.8 g/dL Normal 30.5-36.0 [facility] Comment on above: Order Comment: Speci men Type: BLOOD SPECIMEN Ordering Facility: [facility] Address: [address] [place] [address] Performed By: #### 5 8410-2 #### [facility] [place] [id number] [address] [place] [address] OF [place] MCV (RBC) [Entitic vol] 93.5 fL Normal 80.0-100.0 [facility] Comment on above: Order Comment: Speci men Type: BLOOD SPECIMEN Ordering Facility: [facility] Address: [address] [place] [address] Performed By: #### 5 8410-2 #### [facility] CLIA [id number] [address] [place] [address] [place] Nucleated RBC (Bld) [#/Vol] 10*3/uL Normal <0.01 [facility] Comment on above: Order Comment: Speci men Type: BLOOD SPECIMEN Ordering Facility: [facility] Address: [address] [place] [address] Performed By: #### 5 8410-2 #### [facility] CLIA [id number] [address] [place] [address] [place] Platelet mean volume (Bld) [Entitic vol] 10.3 fL Normal 9.0-12.7 [facility] Comment on above: Order Comment: Speci men Type: BLOOD SPECIMEN Ordering Facility: [facility] Address: [address] [place] [address] Performed By: #### 5 8410-2 #### [facility] CLIA [id number] [address] [place] [address] [place] Platelets (Bld) [#/Vol] 247 10*3/uL Normal 150-400 [facility] Comment on above: Order Comment: Speci men Type: BLOOD SPECIMEN Ordering Facility: [facility] Address: [address] [place] [address] Performed By: #### 5 8410-2 #### [facility] CLIA [id number] [facility] [place] [address] [place] RBC (Bld) [#/Vol] 4.34 10*6/uL Normal 3.90-5.20 [facility] Comment on above: Order Comment: Speci men Type: BLOOD SPECIMEN Ordering Facility: [facility] Address: [address] [place] [address] Performed By: #### 5 8410-2 #### [facility] CLIA [id number] [id number] [facility] [place] [address] [place] WBC (Bld) [#/Vol] 10.17 10*3/uL Normal 3.70-11.00 [facility] Comment on above: Order Comment: Speci men Type: BLOOD SPECIMEN Ordering Facility: [facility] Address: [address] [place] [address] Performed By: #### 5 8410-2 #### [facility] CLIA [id number] [facility] [place] [address] [facility] CNOVon 02-13-2024 CNOV Office Visit (MIDMAV ) VARSHA NIEVES ([id number]) 1945 F Date Time Provider Department 02/13/24 10:40 AM MARYLU HEADLEY [facility] During your visit today, we recorded the following information about you: Pulse Blood pressure Weight Height 59/minute 158/81 86.5 kg 1.575 m Marylu Headley DO 02/13/2024 12:21 PM Signed HPI: Ms. Nieves is a 78 year old female who presents for a follow-up of proteinuric CKD stage IV with history of DM and HTN. She has history of heart failure monitored by cardiology locally for heart failure is on kerendia and entresto. She reports she will be getting an echo on 03/24. She recently saw her compressed gases tester, he wanted her to take sotagliflozin as opposed to torsemide. Recently treated with azithomycin for cellulitis by podiatry. She is now currently off of antibiotics and using topical neosporin, hs follow up next week. She has a foot ulcer which he is monitoring. She had lab work done which showed worsening of his BUN/Cr levels. (BUN of 108 Creatinine of 2.5mg/dL) We had called her, at the time she stated she felt well. She is on torsemide 20mg every other day. She reports no changes in her weight. She checks her home blood pressures. Yesterday was 145/67. Mostly run in the 130-150s. She is on entresto, coreg 25mg BID, kerendia 10mg daily. She is on potassium binder, lokelma. Tolerates this well. Baseline creatinine seems to be around 1.8-2.2. Appetite is good. Denies any chest pain or SOB. She has had swelling in her legs, states it has been better than they had been. Current Outpatient Medications Medication Sig torsemide (DEMADEX) 20 mg tablet Take 1 tablet by mouth every other day. insulin lispro-aabc (LYUMJEV KWIKPEN) 100 unit/mL insulin pen Inject subcutaneously three times daily before meals. Magnesium Oxide 500 mg tab Take 500 mg by mouth once daily. sodium zirconium cyclosilicate (LOKELMA) 10 gram oral packet Take 1 Packet by mouth once daily. Mix powder in 45 mL of water, stir and drink immediately. KERENDIA 10 mg tablet Take 10 mg by mouth once daily. montelukast (SINGULAIR) 10 mg tablet Take 10 mg by mouth once daily. sacubitril-valsartan (ENTRESTO) 97-103 mg tablet Take 1 tablet by mouth twice daily. Cholecalciferol, Vitamin D3, 50 mcg (2,000 unit) cap Take 1 capsule by mouth once daily. multivit,thx,calcium, iron,mins (MULTIVITAMIN AND MINERAL ORAL) Take by mouth once daily. CALCIUM-VITAMIN D3 ORAL Take by mouth. aspirin 81 mg chewable tablet Take 81 mg by mouth once daily. Vitamin E, dl, acetate, 1,000 unit capsule Take 1,000 Units by mouth once daily. insulin glargine,hum.rec.anlo g (LANTUS SOLOSTAR U-100 INSULIN SUBCUTANEOUS) Inject subcutaneously. 34 units daily carvedilol (COREG) 25 mg tablet Take 25 mg by mouth twice daily with meals. Biotin 10,000 mcg cap Take by mouth once daily. No current facility-administered medications for this visit. Social history: reports that she has never smoked. She has never used smokeless tobacco. She reports that she does not drink alcohol and does not use drugs. ROS: no fever, no weight loss, no chest pain, no SOB, no nausea, no vomiting, no abdominal pain, no diarrhea, no constipation, no appetite changes, no frothy urine, no gross hematuria, no urinary symptoms, no lightheadedness, no dizziness, improved edema PHYSICAL EXAMINATION: BP 158/81 Pulse (!) 59 Ht 157.5 cm (5' 2 ) Wt 86.5 kg (190 lb 11.2 oz) BMI 34.88 kg/m? BP - standardized method Pulse 1 BP #1: 160/76 Pulse #1: 61 beats/min 2 BP #2 : 156/85 Pulse #2 : 59 beats/min 3 BP #3 : 157/82 Pulse #3 : 57 beats/min Average Average BP: 158/81 Average Pulse: 59 beats/min Orthostatic vitals Supine Sitting Standing BP cuff location BP cuff location: Left upper arm BP cuff size BP cuff size: large adult Comments for BP values First BP (right) First BP (left) General appearance: well appearing, in no acute distress, alert HEENT: NC/AT Lungs: normal respiratory effort, clear to auscultation bilaterally Heart: RRR, normal S1 and S2, murmur present Abdomen: soft, NT, ND, normoactive BS Back: no CVA tenderness Extremities: no edema Neuro: no asterixis, alert and oriented x 3 Labs: CBC: Lab Results Component Value Date WBC 7.54 01/10/2023 HB 12.5 01/10/2023 HCT 39.4 01/10/2023 PLT 256 01/10/2023 BMP: Lab Results Component Value Date NA 138 01/10/2023 K 4.9 01/10/2023 CHLOR 102 01/10/2023 GLUC 309 (H) 01/10/2023 CA 9.9 01/10/2023 RENAL FUNCTION Lab Results Component Value Date BUN 81 (H) 01/10/2023 BUN 57 (H) 05/03/2022 BUN 69 (H) 12/21/2021 CREAT 2.00 (H) 01/10/2023 CREAT 1.99 (H) 05/03/2022 CREAT 2.02 (H) 12/21/2021 EGFRAA 29 12/21/2021 EGFRAA 25 12/06/2021 EGFRAA 31 08/16/2021 EGFROTH 25 (L) 01/10/2023 EGFROTH 25 (L) 05/03/2022 EGFROTH 24 12/21/2021 ACID/BASE Lab Results (more content not included)... Normal [facility] Creatinine Unsp time (U) [Ma ss/Vol]on 02-13-2024 Creatinine (U) [Mass/Vol] 52.0 mg/dL Normal 20.0-300.0 [facility] Comment on above: Order Comment: Speci men Type: URINE SPECIMEN Ordering Facility: [facility] Address: [address] [place] [address] Performed By: #### 3 5674-1 #### [facility] CLIA [id number] [address] [place] [address] [place] PROTEIN CREATININE RATIOon 0 02-13-2024 Protein/Creatinine (U) [Mass ratio] 1.19 mg/mg High <0.15 mg/mg [facility] Prot Ur-mCncon 02-13-2024 Protein (U) [Mass/Vol] 62 mg/dL High 0-20 [facility] Comment on above: Order Comment: Speci men Type: URINE SPECIMEN Ordering Facility: [facility] Address: [address] [place] [address] Performed By: #### 2 888-6, 2890-2 #### [facility] CLIA [id number] [address] [place] [address] [place] Prot/Creat Uron 02-13-2024 Protein/Creatinine (U) [Mass ratio] 1.19 mg/mg High <0.15 [facility] Comment on above: Order Comment: Speci men Type: URINE SPECIMEN Ordering Facility: [facility] Address: [address] [place] [address] Result Comment: Adul t Proteinuria Categories: <0.15 mg/mg is considered normal to mildly increased 0.15 - 0.50 mg/mg is considered moderately increased >0.50 mg/mg is considered severely increased KDIGO. (2013). KDIGO 2012 Clinical Practice Guideline for the Evaluation and Management of Chronic Kidney Disease. Official Journal of the International Society of Nephrology, 3(1), 1-150. Performed By: #### 2 888-6, 2890-2 #### [facility] CLIA [id number] [address] [place] [address] [place] Protein/Creatinine (U) [Mass ratio]on 02-13-2024 Creatinine (U) [Mass/Vol] 52.0 mg/dL 20.0 - 300.0 mg/dL [facility] Protein (U) [Mass/Vol] 62 mg/dL High 0 - 20 mg/dL [facility] Creatinine (U) [Mass/Vol] 52.0 mg/dL Normal 20.0-300.0 [facility] Comment on above: Order Comment: Speci men Type: URINE SPECIMEN Ordering Facility: [facility] Address: [address] [place] [address] Performed By: #### 2 888-6, 2890-2 #### [facility] CLIA [id number] [address] [place] [address] [place] Renal function 2000 panelon 02-13-2024 Albumin [Mass/Vol] 4.0 g/dL Normal 3.9-4.9 [facility] Comment on above: Order Comment: Speci men Type: BLOOD SPECIMEN Ordering Facility: [facility] Address: [address] [place] [address] Performed By: #### 2 4362-6 #### [facility] CLIA [id number] [address] [place] [address] [place] Anion gap [Moles/Vol] 12 mmol/L Normal 9-18 [facility] Comment on above: Order Comment: Speci men Type: BLOOD SPECIMEN Ordering Facility: [facility] Address: [address] [place] [address] Performed By: #### 2 4362-6 #### [facility] CLIA [id number] [address] [place] [address] [place] Calcium [Mass/Vol] 9.5 mg/dL Normal 8.5-10.2 [facility] Comment on above: Order Comment: Speci men Type: BLOOD SPECIMEN Ordering Facility: [facility] Address: [address] [place] [address] Performed By: #### 2 4362-6 #### [facility] CLIA [id number] [address] [place] [address] [place] Chloride [Moles/Vol] 103 mmol/L Normal 97-105 [facility] Comment on above: Order Comment: Speci men Type: BLOOD SPECIMEN Ordering Facility: [facility] Address: [address] [place] [address] Performed By: #### 2 4362-6 #### [facility] CLIA [id number] [address] [place] [address] [place] CO2 [Moles/Vol] 28 mmol/L Normal 22-30 [facility] Comment on above: Order Comment: Speci men Type: BLOOD SPECIMEN Ordering Facility: [facility] Address: [address] [place] [address] Performed By: #### 2 4362-6 #### [facility] IA [id number] [address] [place] [address] [place] Creatinine [Mass/Vol] 2.02 mg/dL High 0.58-0.96 [facility] Comment on above: Order Comment: Speci men Type: BLOOD SPECIMEN Ordering Facility: [facility] Address: [address] [place] [address] Performed By: #### 2 4362-6 #### [facility] IA [id number] [address] [place] [address] [facility] Creatinine and Glomerular filtration rate.predicted panel (S/P/Bld) 25 mL/min/1.73m??? Low >=60 [facility] Comment on above: Order Comment: Speci men Type: BLOOD SPECIMEN Ordering Facility: [facility] Address: [address] [place] [address] Result Comment: Malini mated Glomerular Filtration Rate [...] GFR. Performed By: #### 2 4362-6 #### [facility] CLIA [id number] [address] [place] [address] [place] Glucose [Mass/Vol] 92 mg/dL Normal 74-99 [facility] Comment on above: Order Comment: Earline porras Type: BLOOD SPECIMEN Ordering Facility: [facility] Address: [address] [place] [address] Result Comment: The [place] Diabetes Association (ADA) provides guidance for cutoff [...] Standards of Medical Care in Diabetes 2016, [place] [employer]. Diabetes Care. 2016.39(Suppl 1). Performed By: #### 2 4362-6 #### [facility] IA [id number] [address] [place] [address] [place] Phosphate [Mass/Vol] 4.2 mg/dL Normal 2.7-4.8 [facility] Comment on above: Order Comment: Earline porras Type: BLOOD SPECIMEN Ordering Facility: [facility] Address: [address] [place] [address] Performed By: #### 2 4362-6 #### [facility] IA [id number] [place] [address] [place] Potassium [Moles/Vol] 4.3 mmol/L Normal 3.7-5.1 [facility] Comment on above: Order Comment: Earline porras Type: BLOOD SPECIMEN Ordering Facility: [facility] Address: [address] [address] Performed By: #### 2 4362-6 #### [facility] IA [id number] [place] [address] [place] Sodium [Moles/Vol] 143 mmol/L Normal 136-144 [facility] Comment on above: Order Comment: Speci men Type: BLOOD SPECIMEN Ordering Facility: [facility] Address: [address] [id number] Performed By: #### 2 4362-6 #### [facility] IA [id number] [address] [place] [address] [place] Urea nitrogen [Mass/Vol] 96 mg/dL High 7- [facility] Comment on above: Order Comment: Speci men Type: BLOOD SPECIMEN Ordering Facility: [facility] Address: [address] [place] [address] Performed By: #### 2 4362-6 #### [facility] IA [id number] [place] [address] [facility] Urinalysis complete panel (U )on 02-13-2024 Bilirubin Ql (U) Negative Normal Negative [facility]ital Comment on above: Order Comment: Speci men Type: URINE SPECIMEN Ordering Facility: [facility] Address: [address] [place] [address] Performed By: #### 2 4356-8 #### [facility] IA [id number] [address] [place] [address] [facility] Clarity (Unsp spec) Clear Normal Clear [facility] Comment on above: Order Comment: Speci men Type: URINE SPECIMEN Ordering Facility: [facility] Address: [address] [place] [address] Performed By: #### 2 4356-8 #### [facility] IA [id number] [address] [place] [address] [place] Color (U) Light Yellow Normal yellow [facility] Comment on above: Order Comment: Speci men Type: URINE SPECIMEN Ordering Facility: [facility] Address: [address] [id number] Performed By: #### 2 4356-8 #### [facility] IA [id number] [address] [place] [address] [place] Epithelial cells LM.HPF (Urine sed) [#/Area] Few Normal [facility] Comment on above: Order Comment: Speci men Type: URINE SPECIMEN Ordering Facility: [facility] Address: [address] [place] [address] Performed By: #### 2 4356-8 #### [facility] CLIA [id number] [place] [address] [place] Glucose Test strip (U) [Mass/Vol] Negative Normal Trace, Negative [facility] Comment on above: Order Comment: Speci men Type: URINE SPECIMEN Ordering Facility: [facility] Address: [address] [place] [address] Performed By: #### 2 4356-8 #### [facility] IA [id number] [address] [place] [id number] [place] [address] [place] Hemoglobin Ql (U) Negative Normal Negative, Trace [facility] Comment on above: Order Comment: Speci men Type: URINE SPECIMEN Ordering Facility: [facility] Address: [address] [place] [address] Performed By: #### 2 4356-8 #### [facility] IA [id number] [address] [place] [address] [place] Ketones Ql (U) Negative Normal Negative, Trace [facility] Comment on above: Order Comment: Speci men Type: URINE SPECIMEN Ordering Facility: [facility] Address: [address] [place] [address] Performed By: #### 2 4356-8 #### [facility] CLIA [id number] [address] [place] [address] [place] Leukocyte esterase Test strip Ql (U) Negative Normal Negative, 25 Jessi/uL [facility] Comment on above: Order Comment: Speci men Type: URINE SPECIMEN Ordering Facility: [facility] Address: [address] [place] [address] Performed By: #### 2 4356-8 #### [facility] CLIA [id number] [address] [place] [address] [place] Nitrite Ql (U) Negative Normal Negative [facility] Comment on above: Order Comment: Speci men Type: URINE SPECIMEN Ordering Facility: [facility] Address: [address] [place] [address] Performed By: #### 2 4356-8 #### [facility] IA [id number] [address] [place] [address] [place] pH (U) 6.0 [pH] Normal 5.0-8.0 [facility] Comment on above: Order Comment: Speci men Type: URINE SPECIMEN Ordering Facility: [facility] Address: [address] [place] [address] Performed By: #### 2 4356-8 #### [facility] IA [id number] [address] [place] [address] [place] Protein (U) [Mass/Vol] 1+ Abnormal Trace, Negative [facility] Comment on above: Order Comment: Speci men Type: URINE SPECIMEN Ordering Facility: [facility] Address: [address] [place] [address] Performed By: #### 2 4356-8 #### [facility] IA [id number] [address] [place] [address] [place] RBC LM.HPF (Urine sed) [#/Area] 0-3 /HPF Normal 0-3 /HPF [facility] Comment on above: Order Comment: Speci men Type: URINE SPECIMEN Ordering Facility: [facility] Address: [address] [place] [address] Performed By: #### 2 4356-8 #### [facility] IA [id number] [address] [place] [address] [place] Specific gravity (U) [Rel density] 1.014 Normal 1.005-1.030 [facility] Comment on above: Order Comment: Speci men Type: URINE SPECIMEN Ordering Facility: [facility] Address: [address] [place] [address] Performed By: #### 2 4356-8 #### [facility] IA [id number] [place] [address] [place] [address] Urobilinogen Ql (U) Normal Normal Normal [facility] Comment on above: Order Comment: Speci men Type: URINE SPECIMEN Ordering Facility: [facility] Address: [address] [place] [address] Performed By: #### 2 4356-8 #### [facility] CLIA [id number] [address] [id number] [facility] OF TOM WBC LM.HPF (Urine sed) [#/Area] 0-5 /HPF Normal 0-5 /HPF [facility] Comment on above: Order Comment: Speci men Type: URINE SPECIMEN Ordering Facility: [facility] Address: [address] [place] [address] Performed By: #### 2 4356-8 #### [facility] CLIA [id number] [address] [facility] Bilirubin Ql (U) Negative Negative [facility] Clarity (Unsp spec) Clear Clear [facility] Color (U) Light Yellow yellow [facility] Epithelial cells LM.HPF (Urine sed) [#/Area] Few [facility] Glucose Test strip (U) [Mass/Vol] Negative Trace, Negative [facility] Hemoglobin Ql (U) Negative Negative, Trace [facility] Ketones Ql (U) Negative Negative, Trace [facility] Leukocyte esterase Test strip Ql (U) Negative Negative, 25 Jessi/uL [facility] Nitrite Ql (U) Negative Negative [facility] pH (U) 6.0 [pH] 5.0 - 8.0 [facility] Protein (U) [Mass/Vol] 1+ Abnormal Trace, Negative [facility] RBC LM.HPF (Urine sed) [#/Area] 0-3 /HPF 0-3 /HPF [facility] Specific gravity (U) [Rel density] 1.014 1.005 - 1.030 [facility] Urobilinogen Ql (U) Normal Normal [facility] WBC LM.HPF (Urine sed) [#/Area] 0-5 /HPF 0-5 /HPF [facility] Thalia 02-06-2024 CNPN Telephone ([facility]) VARSHA NIEVES ([id number]) 1945 F Date Time Provider Department 02/06/24 MARYLU HEADLEY During your visit today, we recorded the following information about you: Viola Vidal MA 02/06/2024 10:01 AM Signed Received lab results from [facility]. Placed in provider mailbox for review. Viola Vidal MA Allergies As of Date: 02/06/2024 Noted Allergy Reaction ACETAMINOPHEN-CODEINE 11/27/1999 14 - Other: See Comments BENZONATATE 11/27/1999 11 - Vomiting CEPHALEXIN 11/27/1999 2 - Rash CIPROFLOXACIN 11/12/2019 14 - Other: See Comments CLINDAMYCIN 11/12/2019 14 - Other: See Comments PENICILLINS 11/07/2014 14 - Other: See Comments Date Reviewed: 12/26/2023 Reviewed by: Krishna Cox OCCA - Fully Assessed Reason for Visit: Electronic Communication [060] Prescriptions as of 02/06/2024 - torsemide (DEMADEX) 20 mg tablet Take [...] once daily. 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 He will have patient call us back to let us know how she is feeling. Noted lab work done yesterday showed a rise in her BUN to 108 and creatinine to 2.5mg/dL She has an office visit me next week, we will need to recheck levels then, if feeling unwell, recommend ER visit Marylu Headley DO February 06, 2024, 10:31 AM Cecily Baron RN 02/06/2024 12:26 PM Signed Patient calling back Read message below Voiced understanding She feels great Will wait until next week/ will get lab work while at [facility]/[place] Transferred to scheduling to make lab appointment Marylu Headley DO 02/06/2024 12:40 PM Signed Noted. Marylu Headley DO February 06, 2024, 12:40 PM Tiera Diehl 02/07/2024 11:35 AM Signed Patient is calling back and says that her labs were a little off and she wants to know if this could be because she was on an antibiotic for 5 days, being today was her last day of medication azithromycin.. Please call patient to advise before she get additional labs done. Marylu Headley DO 02/07/2024 11:46 AM Signed Called patient, she reports her boiler shop supervisor put her on azithromycin for 5 days due to her blister on her toe. She is seeing him tomorrow in follow up. Has a visit with me next week and we can monitor repeat labs. Marylu Headley DO February 07, 2024, 11:46 AM Allergies As of Date: 02/06/2024 Noted Allergy Reaction ACETAMINOPHEN-CODEINE 11/27/1999 14 - Other: See Comments BENZONATATE 11/27/1999 11 - Vomiting CEPHALEXIN 11/27/1999 2 - Rash CIPROFLOXACIN 11/12/2019 14 - Other: See Comments CLINDAMYCIN 11/12/2019 14 - Other: See Comments PENICILLINS 11/07/2014 14 - Other: See Comments Date Reviewed: 12/26/2023 Reviewed by: Krishna Cox OCCA - Fully Assessed Reason for Visit: Results [95] Prescriptions as of 02/07/2024 - torsemide (DEMADEX) 20 mg tablet Take [...] once daily. Problem List As Of Date 02/06/2024 Noted Resolved CKD (chronic kidney disease) stage 4, GFR 15-29*11/12/2019 Essential hypertension [I10] 11/12/2019 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 chronic k*11/12/2019 Other hyperlipidemia [E78.49] 11/12/2019 Chronic combined systolic and diastolic congest*11/12/2019 Encounter Status:Closed by MARYLU HEADLEY on 02/06/24 [facility] CNOVon 12-26-2023 CNOV Office Visit (MIDTNV ) VARSHA NIEVES ([id number]) 1945 F Date Time Provider Department 12/26/23 2:30 PM TIERA SPANGLER During your visit today, we recorded the following information about you: Pulse Blood pressure Weight Height 75/minute 201/69 86.5 kg 1.575 m Tiera Spangler, GEAR SHAPER SET UP OPERATOR.HEAD NECK SURGEON 12/26/2023 2:31 PM Signed Pt is an [...] labs DM-last A1C 8.9. She follows in [place], [place]. Continue endo follow up Plan No changes Labs prior to next follow up Has follow up in [address] Headley. Will keep appt and see me in 6 months Tiera Spangler APRN.HEAD NECK SURGEON Allergies As of Date: 12/26/2023 Noted Allergy [...] hypertension with chronic kidney disease, stage IV ([facility]) [I12.9, N18.4] Other Visit Diagnoses:CKD (chronic kidney disease) stage 4, GFR 15-29 ml/min ([facility]) [N18.4] Proteinuria, unspecified type [R80.9] Hyperkalemia [E87.5] 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, unspecified whether 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 insulin use ([facility]) [E11.22, N18.4] Vitamin D deficiency [E55.9] Order(s):CBC [SQCBC] Order #: [id number] FUTURE CREATININE RANDOM UR [SQUCRR] Order #: [id number] FUTURE PROTEIN RANDOM UR [SQUTPR] Order #: [id number] FUTURE RENAL FUNCTION PANEL [SQRFP] Order #: [id number] FUTURE VITAMIN D 25 HYDROXY [SQVITD] Order #: [id number] FUTURE Prescriptions as of 12/26/2023 - torsemide (DEMADEX) 20 mg tablet Take 1 tablet by mouth every other day. - insulin lispro-aabc (LYUMJEAngela KWIKPEN) 100 unit/mL insulin pen Inject subcutaneously [...] - sacubitril (more content not included)... Normal [facility] 12-06-2023 [facility] Telephone ([facility]) VARSHA NIEVES ([id number]) 1945 F Date Time Provider Department 12/06/23 MARYLU HEADLEY [facility] During your visit today, we recorded the following information about you: Marylu Headley DO 12/06/2023 8:30 AM Signed Please call [facility] for results of lab work done on Monday12/01/2023. Thank you Raul Hoffman OCCA 12/06/2023 1:28 PM Signed Called and left a vm with [facility] at [phone] to request lab results from 12/01/23 per [...] LLOYD - Fully Assessed Reason for Visit: Results [...] Encounter Status:Closed by [facility]LU [facility] VARSHA NIEVES ([id number]) 1945 F Date Time Provider Department 11/21/23 TIERA SPANGLER [facility] During your visit today, we recorded the following information about you: Irina Allen, LLOYD 11/21/2023 2:15 PM Signed Patient?s identity has been confirmed by name and birthdate: Yes Call received from Varghese Gillespie at [facility] at 2:08 PM to report a [...] is FAXING results over to FAX # [phone] Tiera Spangler APRN.CNP 11/21/2023 2:33 PM Signed Called pt re: below Recommend ER eval for continued rise in BUN and hyperkalemia No answer LMTCB and that she needs to go to local ER for eval Called x 2 Await call back Tiera Spangler APRN.Tiera Pugh APRN.CNP 11/21/2023 2:53 PM Signed Attempted to reach pt again No answer LMTCB Tiera Spangler APRN.Irina Figueroa, LLOYD 11/21/2023 4:05 PM Signed Pt called back She got the message about going to her Local ED She is having her drive her to the [facility] Pt was asking if Provider Onel was going to call report / or tell them she was coming? I do not know if that is the plan; but I told pt not to wait and to have her take her there now but I would route this message to the HEAD NECK SURGEON/team Marylu Headley DO 11/28/2023 12:08 PM Signed [...] Encounter Status:Closed by TIERA SPANGLER [facility]21/23 [facility] ([facility]) VARSHA NIEVES ([id number]) 1945 F Date Time Provider Department 11/15/23 [facility]ERA SPANGLER [facility] During your visit today, we recorded the following information about you: Brigitte Quinones OCCA 11/15/2023 11:53 AM Signed Contacted patient to advise her of the message below from Tiera Spangler GEAR SHAPER SET UP OPERATOR [facility]. She agreed with plan as stated below and will mostly likely get it done today. Please remind patient she is due for nonfasting labs at [facility]. I sent order last week. EFE Mckeon [...] Status:Closed by BRIGITTE QUINONES on 11/15/23 Normal [facility] Telephone (MIDMA[facility]) VARSHA NIEVES ([id number]) 1945 F Date Time Provider Department 11/15/23 TIERA SPANGLER MIDTNV During your visit today, we recorded the following information about you: Liban Renee RN 11/15/2023 3:01 PM Signed [facility] is calling. The pt's BUN from the pt's lab draw was 124. They are faxing the entire panel results to [facility] fax number [phone] for your review. Tiera Spangler APRN.DORINA 11/15/2023 [...] up labs 11/21 BP 118/57 Tiera Spangler APRN.HEAD NECK SURGEON Allergies As of Date: 11/15/2023 Noted Allergy [...] Status:Closed by LIBAN RENEE RN on 11/17/23 Normal [facility] Thalia 11-09-2023 [facility] Telephone (MIDMA[facility]) LIZBETHVARSHA ([id number]) 1945 F Date Time Provider Department 11/09/23 TIERA SPANGLER During your visit today, we recorded the following information about you: Viola Saldivar 11/09/2023 9:12 AM Signed [facility] is requesting a signed order showing diagnosis for the Renal Function Panel lab that you ordered for her. The paper that the patient brought in to them doesn't have any diagnosis codes. Please fax over to: [phone] Patient is currently at the hospital to have this done . Patient has been identified by name and birthdate. Duration of symptoms: N/A Person calling: self Call patient at: on cell [phone] (home) Was an appointment scheduled: No Closing statement: Results or non-symptom based questions: Thank you for calling [facility], your call will be returned within the [...] LLOYD - Fully Assessed Reason for Visit: Orders [...] Encounter Status:Closed by TIERA SPANGLER [facility]/09/23 [facility] VARSHA NIEVES ([id number]) 1945 F Date Time Provider Department 11/09/23 TIERA SPANGLER During your visit today, we recorded the following information about you: Brigitte Quinones OCCA 11/09/2023 1:33 PM Signed Faxed lab order for renal function panel to [facility] at [phone] per Tiera Spangler GEAR SHAPER SET UP OPERATOR HEAD NECK SURGEON. Please fax order for renal panel to [phone] EFE Mckeon Allergies As of Date: 11/09/2023 Noted Allergy Reaction ACETAMINOPHEN-CODEINE 11/27/1999 14 - Other: See Comments BENZONATATE 11/27/1999 11 - Vomiting CEPHALEXIN 11/27/1999 2 - Rash CIPROFLOXACIN 11/12/2019 14 - Other: See Comments CLINDAMYCIN 11/12/2019 14 - Other: See Comments PENICILLINS 11/07/2014 14 - Other: See Comments Date Reviewed: 11/01/2023 Reviewed by: Irina Allen, RN - Fully Assessed Prescriptions as of [...] Encounter Status:Closed by BRIGITTE QUINONES on 11/09/23 [facility] Thalia 11-06-2023 [facility] Telephone ([facility]) VARSHA NIEVES ([id number]) 1945 F Date Time Provider Department 11/06/23 TIERA SPANGLER [facility] During your visit today, we recorded the following information about you: Candace Veliz 11/06/2023 4:25 PM Signed Took a call from Erika who works at [facility]. Erika was calling with some critical lab values for Tiera Spangler. Took the following message over phone: Critical BUN of 117. Patient in question was verified using full name and date of . Cnadace Veliz November 06, 2023 4:24 PM Tiera Spangler APRN.DORINA 11/07/2023 3:30 PM Signed Called pt to review labs I have not received full results yet but critical results states BUN 117 No answer TCB Tiera L Onel, Tiera Winkler APRN.CNP 11/08/2023 11:33 AM Signed Called pt [...] mouth every other day. - insulin lispro-aabc (LYUMJEAngela WHITEPEN) 100 unit/mL insulin pen Inject subcutaneously three [...] by mouth once daily. Encounter Status:Closed by CANDCAE VELIZ on 11/06/23 [facility] Thalia 10-24-2023 [facility] Telephone ([facility]MA[facility]) VARSHA NIEVES ([id number]) 1945 F Date Time Provider Department 10/24/23 TIERA SPANGLER [facility] During your visit today, we recorded the following information about you: Tiera Spangler APRN.DORINA 10/24/2023 11:48 AM Signed Called pt to see if she completed repeat labs She did not She states she didn't receive order She has been ill for 1 week I asked she repeat labs next week once she is feeling better Will have order faxed again to [facility] and mailed to patient Tiera Spangler APRN.Akshat Woodruff 10/24/2023 12:17 PM Signed The requested document has been faxed to [phone]. Received a fax confirmation of OK on 10-24-23. The order has also been placed in the outgoing mail as well. Akshat Schaeffer Please mail order to patient and fax to [place] as well. [phone] Renal panel Irina Allen, LLOYD 11/01/2023 2:43 [...] coughing? Please get back to her on [phone] Pt has an answering machine Akshat Schaeffer [...] See Comments Date Reviewed: 06/13/2023 Reviewed by: Viola Vidal MA - Fully Assessed Reason for Visit: [...] Encounter Status:Closed by TIERA SPANGLER on 10/24/23 [facility] 10-23-2023 OCTAVIO Telephone (MIDTNV) VARSHA NIVEES ([id number]) 1945 F Date Time Provider Department 10/23/23 TIERA SPANGLER During your visit today, we recorded the following information about you: Akshat Schaeffer 10/23/2023 10:01 AM Signed ----- Message from Tiera Spangler APRN.HEAD NECK SURGEON sent at 10/23/2023 8:57 AM EST ----- Please call [facility] and have repeat BUN and creatinine faxed over Tiera Spangler APRN.Akshat Woodruff 10/24/2023 10:15 AM Addendum I called the Medical Records department at [facility]. My call went to [facility]. I did not leave a message. I will try to call back @ [phone], Medical Records press 2, then 1. Akshat Moreno 10/24/2023 10:16 AM Signed I called but did not speak with nor leave a voicemail as it is the same as below. Akshat Moreno 10/24/2023 11:28 AM Signed I called and spoke with the staff at [facility] lab. I informed the staff of the below request and gave the fax number of [phone]. The lab staff told me that they [...] See Comments Date Reviewed: 06/13/2023 Reviewed by: Viola Vidal MA - Fully Assessed Reason for Visit: [...] Encounter Status:Closed by AKSHAT SCHAEFFER on 10/23/23 [facility] 10-10-2023 OCTAVIO Telephone (MIDMAV) VARSHA NIEVES ([id number]) 1945 F Date Time Provider [facility] During your visit today, we recorded the following information about you: Liban Zuñiga RN 10/10/2023 2:48 PM Signed Patient?s identity has been confirmed by name and birthdate: Yes Call received from Lela at [facility] to report a critical value for BUN with a result of 124. Tiera Spangler APRN CNP was notified of the result at 2:46PM. LLOYD Roldan Jennifer L, APRN.HEAD NECK SURGEON 10/10/2023 3:08 PM Signed Called pt to review labs Results not fully available to me from outside lab Would like to review BUN 124 Any med changes? How is BP? [facility] T[facility] Spangler APRN.Lacie Coreas RN 10/11/2023 8:24 [...] Patient will be leaving to go to [place] at 9 AM today. Her brother is in the hospital. She will return home after 3pm. If calling back before 9, please call: [phone] (home); if after 9AM, please use patient's spouse's cell # [phone] (she doesn't have a cell) Tiera Spangler APRN.DORINA 10/11/2023 9:49 AM Signed Called pt re: below She feels well 93/44 this morning 93/48 yesterday Next cardiology follow up is Nov 072022 Decrease torsemide to 20mg daily Repeat labs in 1 week-fax order to [phone] Call for any swelling, increased weight or [...] if Varsha had her labs done at [facility] as of yet. Nestor told me that Varsha has been sick with a cough/cold of some sort that started a few days before and is currently still sick. Nestor states that once Varsha is feeling better, she will get the labs done as ordered. Akshat Maksim Allergies As of Date: 10/10/2023 Noted Allergy Reaction ACETAMINOPHEN-CODEINE 11/27/1999 14 - Other: See Comments BENZONATATE 11/27/1999 11 - Vomiting CEPHALEXIN 11/27/1999 2 - Rash CIPROFLOXACIN 11/12/2019 14 - Other: See Comments CLINDAMYCIN 11/12/2019 14 - Other: See Comments PENICILLINS 11/07/2014 14 - Other: See Comments Date Reviewed: 06/13/2023 Reviewed by: Viola Vidal MA - Fully Assessed Reason for Visit: [...] 3 10/11/2023 (more content not included)... Normal [facility] CNPNon 10-09-2023 CNPN Telephone (INTMLN) VARSHA NIEVES ([id number]) 1945 F Date Time Provider Department 10/09/23 TIERA SPANGLER During your visit today, we recorded the following information about you: Elva Beckford 10/09/2023 3:48 PM Signed Varsha Nieves is calling Tiera Spangler APRN.HEAD NECK SURGEON today needs labs ordered and faxed over to [facility]. F: [phone] No chief complaint on file. Patient has been identified by name and birthdate. Duration of symptoms: N/A Person calling: self Call patient at: at home [phone] (home) [phone] (cell) Was an appointment scheduled: No Closing statement: Results or non-symptom based questions: Thank you for calling [facility], your call will be returned within the next business day. Akshat Kaufman 10/09/2023 4:10 PM Signed The requested document has been faxed to [phone] . Received a fax confirmation of OK on 10/09/23. Akshat Schaeffer Allergies As of Date: 10/09/2023 Noted Allergy Reaction ACETAMINOPHEN-CODEINE 11/27/1999 14 - Other: See Comments BENZONATATE 11/27/1999 11 - Vomiting CEPHALEXIN 11/27/1999 2 - Rash CIPROFLOXACIN 11/12/2019 14 - Other: See Comments CLINDAMYCIN 11/12/2019 14 - Other: See Comments PENICILLINS 11/07/2014 14 - Other: See Comments Date Reviewed: 06/13/2023 Reviewed by: Viola Vidal MA - Fully Assessed Reason for Visit: [...] Encounter Status:Closed by [facility] (INTMLN) VARSHA NIEVES ([id number]) 1945 F Date Time Provider Department 07/20/23 [...] calling: self Call patient at: at home [phone] (home) [phone] (cell) Was an appointment scheduled: No Closing statement: Results or non-symptom based questions: Thank you for calling [facility], your call will be returned within the next business day. Tiera Chase APRN.[facility] 07/20/2023 11:22 AM Signed That is fine Please send req for RFP in 1-2 weeks after starting increase Tiera Spangler APRN.Viola Herndon MA 07/21/2023 8:23 AM Signed Called and spoke with Varsha. Informed her of the below message from Tiera. She agreed with the plan as stated below. Lab req has been placed in the outgoing mail as of 07/21/23. CRISTELA Agustin Carissa, MA 08/09/2023 3:41 PM Addendum Received lab results from [facility]. Scanned and sent via secure email. Copies have been made and placed for scanning into pt's chart. Viola Vidal MA Allergies As of Date: 07/20/2023 Noted Allergy Reaction ACETAMINOPHEN-CODEINE 11/27/1999 14 - Other: See Comments BENZONATATE 11/27/1999 11 - Vomiting CEPHALEXIN 11/27/1999 2 - Rash CIPROFLOXACIN 11/12/2019 14 - Other: See Comments CLINDAMYCIN 11/12/2019 14 - Other: See Comments PENICILLINS 11/07/2014 14 - Other: See Comments Date Reviewed: 06/13/2023 Reviewed by: Viola Vidal MA - Fully Assessed Reason for Visit: Medication Question [1478] Prescriptions as of 08/09/2023 - insulin lispro-aabc (MARISOL SHAHID) 100 unit/mL [...] Encounter Status:Closed by TIERA SPANGLER on 07/20/23 Normal [facility] CNOVon 06-13-2023 CNOV Office Visit (MIDMAV ) VARSHA NIEVES ([id number]) 1945 F Date Time Provider Department 06/13/23 3:00 PM TIERA SPANGLER MIDTNV During your visit today, we recorded the following information about you: Pulse Blood pressure Weight Height 80/minute 130/83 88.5 kg 1.626 m Tiera Spangler, GEAR SHAPER SET UP OPERATOR.HEAD NECK SURGEON 06/13/2023 3:15 PM Signed Pt is a 77 yo female here for follow up of CKD stage 4 in the setting of proteinuria (non-nephrotic range), DM and HTN. Last OV 12/2022. She remains on [facility] for high K. Last cardiology appt [...] DM-uncontrolled on last lab. She follows in [place], [place]. Continue endo follow up Plan Have labs faxed over from [facility] F/U 4 months Tiera Spangler APRN.HEAD NECK SURGEON Allergies As of Date: 06/13/2023 Noted Allergy Reaction ACETAMINOPHEN-CODEINE 11/27/1999 14 - Other: See Comments BENZONATATE 11/27/1999 11 - Vomiting CEPHALEXIN 11/27/1999 2 - Rash CIPROFLOXACIN 11/12/2019 14 - Other: See Comments CLINDAMYCIN 11/12/2019 14 - Other: See Comments PENICILLINS 11/07/2014 14 - Other: See Comments Date Reviewed: 06/13/2023 Reviewed by: Viola Vidal MA - Fully Assessed Reason for Visit: Follow Up [171] Cmt: Ckd Primary Visit Diagnosis:Benign hypertension with chronic kidney disease, stage IV ([facility]) [I12.9, N18.4] Other Visit Diagnoses:CKD (chronic kidney disease) stage 4, GFR 15-29 ml/min ([facility]) [N18.4] Proteinuria, unspecified type [R80.9] Hyperkalemia [E87.5] 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, unspecified whether 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 manager insulin use ([facility]) [E11.22, N18.4] Order(s):CBC [SQCBC] Order #: [id number] FUTURE RENAL FUNCTION PANEL [SQRFP] Order #: [id number] FUTURE ALBUMIN/CREAT RATIO RND UR [SQUACR] Order #: [id number] FUTURE PTH INTACT BLD [SQPTHI] Order #: [id number] FUTURE VITAMIN D 25 HYDROXY [SQVITD] Order #: [id number] FUTURE (more content not included)... Normal [facility] BNPon 04-26-2023 Natriuretic peptide B (Bld) [Mass/Vol] 775.0 pg/mL Normal <=1,800.0 [facility] Comment on above: Performed By: #### C BC #### [facility] [address] [place] [address] Dr. Elaina Garnett BUNon 04-26-2023 Urea nitrogen [Mass/Vol] 68.0 mg/dL Critically high 7.0-18.0 [facility] Comment on above: Performed By: #### R SPLUS #### [facility] [address] [place] [address] Dr. Elaina Garnett CBC AUTO DIFFon 04-26-2023 BASO # 0.1 103/ul Normal 0.0-0.1 [facility] Comment on above: Performed By: #### C BC #### [facility] [address] [place] [address] Dr. Elaina Garnett Basophils/100 WBC (Bld) 1.0 % Normal 0.2-2.0 [facility] Comment on above: Performed By: #### C BC #### [facility] [address] [place] [address] Dr. Elaina Garnett EO # 0.3 103/ul Normal 0.0-0.7 [facility] Comment on above: Performed By: #### C BC #### [facility] [address] [place] [address] Dr. Elaina Garnett Eosinophils/100 WBC (Bld) 2.8 % Normal 0.9-7.0 [facility] Comment on above: Performed By: #### C BC #### [facility] [address] [place] [address] Dr. Elaina Garnett Erythrocyte distribution width (RBC) [Ratio] 13.9 % Normal 11.0-15.0 [facility] Comment on above: Performed By: #### C BC #### [facility] [address] [place] [address] Dr. Elaina Garnett Hematocrit (Bld) [Volume fraction] 36.8 % Normal 36.0-48.0 [facility] Comment on above: Performed By: #### C BC #### [facility] [address] [place] [address] Dr. Elaina Garnett Hemoglobin (Bld) [Mass/Vol] 12.1 g/dL Normal 12.0-16.0 [facility] Comment on above: Performed By: #### C BC #### [facility] [address] [place] [address] Dr. Elaina Garnett IG # 0.03 10e3/ul Normal 0.00-0.03 [facility] Comment on above: Performed By: #### C BC #### [facility] [address] [place] [address] Dr. Elaina Garnett IG % 0.3 % Normal 0.0-0.5 [facility] Comment on above: Performed By: #### C BC #### [facility] [address] [place] [address] Dr. Elaina Garnett LYMPH # 2.5 103/ul Normal 1.2-3.8 [facility] Comment on above: Performed By: #### C BC #### [facility] [address] [place] [address] Dr. Elaina Garnett Lymphocytes/100 WBC (Bld) 27.7 % Normal 20.5-60.0 [facility] Comment on above: Performed By: #### C BC #### [facility] [address] [place] [address] Dr. Elaina Garnett MANUAL DIFF REQ NO Normal [facility] Comment on above: Performed By: #### C BC #### [facility] [address] [place] [address] Dr. Elaina Garnett MCH (RBC) [Entitic mass] 29.7 pg Normal 26.7-34.0 [facility] Comment on above: Performed By: #### C BC #### [facility] [address] [place] [address] Dr. Elaina Garnett MCHC (RBC) [Mass/Vol] 32.9 g/dL Normal 29.9-35.2 [facility] Comment on above: Performed By: #### C BC #### [facility] [address] [address] [address] Elaina Garnett MCV (RBC) [Entitic vol] 90.4 fL Normal 81.0-99.0 [facility] Comment on above: Performed By: #### C BC #### [facility] [address] [address] [address] Elaina Garnett MONO # 1.0 103/ul Critically high 0.3-0.8 [facility] Comment on above: Performed By: #### C BC #### [facility] [address] [address] [address] Elaina Garnett Monocytes/100 WBC (Bld) 10.7 % Normal 1.7-12.0 [facility] Comment on above: Performed By: #### C BC #### [facility] [address] [address] [address] Elaina Garnett NEUT # 5.1 103/ul Normal 1.4-6.5 [facility] Comment on above: Performed By: #### C BC #### [facility] [address] [address] [address] Elaina Garnett Neutrophils/100 WBC (Bld) 57.5 % Normal 43.0-75.0 [facility] Comment on above: Performed By: #### C BC #### [facility] [address] [address] [address] Elaina Garnett Platelet mean volume (Bld) [Entitic vol] 9.4 fL Critically low 9.5-13.5 [facility] Comment on above: Performed By: #### C BC #### [facility] [address] [address] [address] Elaina Garnett PLT 258 103/ul Normal 150-450 [facility] Comment on above: Performed By: #### C BC #### [facility] [address] [address] [address] Elaina Garnett RBC 4.07 106/ul Critically low 4.20-5.40 [facility] Comment on above: Performed By: #### C BC #### [facility] [address] [address] [address] Elaina Garnett WBC 8.9 103/ul Normal 4.0-11.0 [facility] Comment on above: Performed By: #### C BC #### [facility] [address] [address] [address] Elaina Garnett CREATININEon 04-26-2023 Creatinine [Mass/Vol] 1.69 mg/dL Critically high 0.55-1.02 [facility] Comment on above: Performed By: #### C BC #### [facility] [address] [address] [address] Elaina Garnett EGFR-AF [place] 35 mL/min/1.73m2 Critically low >=60 [facility] Comment on above: Performed By: #### C BC #### [facility] [address] [place] [address] Dr. Elaina Garnett EGFR-NON AF [place] 29 mL/min/1.73m2 Critically low >=60 [facility] Comment on above: Performed By: #### C BC #### [facility] [address] [address] [address] Elaina Garnett ELECTROLYTESon 04-26-2023 Anion gap [Moles/Vol] 13.2 mmol/L Normal [facility] Comment on above: Performed By: #### R SPLUS #### [facility] [address] [place] [address] Dr. Elaina Garnett Chloride [Moles/Vol] 106 mmol/L Normal 98-107 [facility] Comment on above: Performed By: #### R SPLUS #### [facility] [address] [address] [address] Elaina Garnett CO2 [Moles/Vol] 26.3 mmol/L Normal 21.0-32.0 [facility] Comment on above: Performed By: #### R SPLUS #### [facility] [address] [place] [address] Dr. Elaina Garnett Potassium [Moles/Vol] 5.5 mmol/L Critically high 3.5-5.1 [facility] Comment on above: Performed By: #### R SPLUS #### [facility] [address] [place] [address] Dr. Elaina Garnett Sodium [Moles/Vol] 140 mmol/L Normal 136-145 [facility] Comment on above: Performed By: #### R SPLUS #### [facility] [address] [address] [address] Elaina Garnett LIVER PROFILEon 04-26-2023 Albumin [Mass/Vol] 3.4 g/dL Normal 3.4-5.0 [facility] Comment on above: Performed By: #### R SPLUS #### [facility] [address] [place] [address] Dr. Elaina Garnett Albumin/Globulin [Mass ratio] 0.9 {ratio} Normal [facility] Comment on above: Performed By: #### R SPLUS #### [facility] [address] [place] [address] Dr. Elaina Garnett ALP [Catalytic activity/Vol] 91 U/L Normal 46-116 [facility] Comment on above: Performed By: #### R SPLUS #### [facility] [address] [place] [address] Dr. Elaina Garnett ALT [Catalytic activity/Vol] 18 U/L Normal 14-59 [facility] Comment on above: Performed By: #### R SPLUS #### [facility] [address] [place] [address] Dr. Elaina Garnett AST [Catalytic activity/Vol] 16 U/L Normal 15-37 [facility] Comment on above: Performed By: #### R SPLUS #### [facility] [address] [place] [address] Dr. Elaina Garnett BILI, CONJUGATED 0.1 mg/dL Normal 0.0-0.2 [facility] Comment on above: Performed By: #### R SPLUS #### [facility] [address] [place] [address] Dr. Elaina Garnett Bilirubin [Mass/Vol] 0.6 mg/dL Normal 0.2-1.0 [facility] Comment on above: Performed By: #### R SPLUS #### [facility] [address] [place] [address] Dr. Elaina Garnett Globulin (S) [Mass/Vol] 4.0 g/dL Normal [facility] Comment on above: Performed By: #### R SPLUS #### [facility] [address] [place] [address] Dr. Elaina Garnett Protein [Mass/Vol] 7.4 g/dL Normal 6.4-8.2 [facility] Comment on above: Performed By: #### R SPLUS #### [facility] [address] [place] [address] Dr. Elaina Garnett ER URINE PROFILEon 3 Bilirubin Ql (U) Negative Normal NEGATIVE [facility] Comment on above: Performed By: #### R SPLUS #### [facility] [address] [place] [address] Dr. Elaina Garnett Clarity (U) CLEAR Normal CLEAR [facility] Comment on above: Performed By: #### R SPLUS #### [facility] [address] [place] [address] Dr. Elaina Garnett Color (U) LT. YELLOW Normal YELLOW [facility] Comment on above: Performed By: #### R SPLUS #### [facility] [address] [place] [address] Dr. Elaina DAVISRen A micrscopic examination will be performed if indicated. Normal [facility] Comment on above: Performed By: #### R SPLUS #### [facility] [address] [place] [address] Dr. Elaina Garnett Glucose Ql (U) Negative Normal NEGATIVE [facility] Comment on above: Performed By: #### R SPLUS #### [facility] [address] [place] [address] Dr. Elaina Garnett Hemoglobin Ql (U) Negative Normal NEGATIVE [facility] Comment on above: Performed By: #### R SPLUS #### [facility] [address] [place] [address] Dr. Elaina Garnett Ketones Ql (U) TRACE Abnormal NEGATIVE [facility] Comment on above: Performed By: #### R SPLUS #### [facility] [address] [place] [address] Dr. Elaina Garnett LEUKOCYTES Negative Normal NEGATIVE [facility] Comment on above: Performed By: #### R SPLUS #### [facility] [address] [place] [address] Dr. Elaina Garnett Nitrite Ql (U) Negative Normal NEGATIVE [facility] Comment on above: Performed By: #### R SPLUS #### [facility] [address] [place] [address] Dr. Elaina Garnett pH (U) 5.0 [pH] Normal 5-9 [facility] Comment on above: Performed By: #### R SPLUS #### [facility] [address] [place] [address] Dr. Elaina Garnett Protein (U) [Mass/Vol] 100 mg/dL Abnormal NEGATIVE/ TRACE [facility] Comment on above: Performed By: #### R SPLUS #### [facility] [address] [place] [address] Dr. Elaina Garnett SPEC GRAVITY 1.020 Normal 1.005-<=1.025 [facility] Comment on above: Performed By: #### R SPLUS #### [facility] [address] [place] [address] Dr. Elaina Garnett UR MICRO IND NOT INDICATED Normal [facility] Comment on above: Performed By: #### R SPLUS #### [facility] [address] [place] [address] Dr. Elaina Garnett Urobilinogen Qn (U) 0.2 {Danny'U}/dL Normal 0.2 - 1. 0 [facility] Comment on above: Performed By: #### R SPLUS #### [facility] [address] [place] [address] Dr. Elaina Garnett RESPIRATORY PANEL PLUSon Adenovirus Not detected Normal NOT DETECTED [facility] Comment on above: Performed By: #### R SPLUS #### [facility] [address] [place] [address] Dr. Elaina Watson Parapertusis Not detected Normal NOT DETECTED [facility] Comment on above: Performed By: #### R SPLUS #### [facility] [address] [place] [address] Dr. Elaina Watson Pertussis Not detected Normal NOT DETECTED [facility] Comment on above: Performed By: #### R SPLUS #### [facility] [address] [place] [address] Dr. Elaina Garnett Chlamydia Pneumoniae Not detected Normal NOT DETECTED [facility] Comment on above: Performed By: #### R SPLUS #### [facility] [address] [place] [address] Dr. Elaina Garnett Coronavirus 229E Not detected Normal NOT DETECTED [facility] Comment on above: Performed By: #### R SPLUS #### [facility] [address] [place] [address] Dr. Elaina Garnett Coronavirus HKU1 Not detected Normal NOT DETECTED [facility] Comment on above: Performed By: #### R SPLUS #### [facility] [address] [place] [address] Dr. Elaina Garnett Coronavirus NL63 Not detected Normal NOT DETECTED [facility] Comment on above: Performed By: #### R SPLUS #### [facility] [address] [place] [address] Dr. Elaina Garnett Coronavirus OC43 Not detected Normal NOT DETECTED [facility] Comment on above: Performed By: #### R SPLUS #### [facility] [address] [place] [address] Dr. Elaina Garnett Influenza A H1 Not detected Normal NOT DETECTED [facility] Comment on above: Performed By: #### R SPLUS #### [facility] [address] [place] [address] Dr. Elaina Garnett Influenza A H1 2009 Not detected Normal NOT DETECTED [facility] Comment on above: Performed By: #### R SPLUS #### [facility] [address] [place] [address] Dr. Elaina Garnett Influenza A H3 Not detected Normal NOT DETECTED [facility] Comment on above: Performed By: #### R SPLUS #### [facility] [address] [address] [address] Elaina Garnett Influenza B Not detected Normal NOT DETECTED [facility] Comment on above: Performed By: #### R SPLUS #### [facility] [address] [place] [address] Dr. Elaina Garnett Metapneumovirus Not detected Normal NOT DETECTED [facility] Comment on above: Performed By: #### R SPLUS #### [facility] [address] [place] [address] Dr. Elaina Garnett Mycoplas. Pneumoniae Not detected Normal NOT DETECTED [facility] Comment on above: Performed By: #### R SPLUS #### [facility] [address] [place] [address] Dr. Elaina Garnett Parainfluenza 1 Not detected Normal NOT DETECTED [facility] Comment on above: Performed By: #### R SPLUS #### [facility] [address] [place] [address] Dr. Elaina Garnett Parainfluenza 2 Not detected Normal NOT DETECTED [facility] Comment on above: Performed By: #### R SPLUS #### [facility] [address] [place] [address] Dr. Elaina Garnett Parainfluenza 3 Not detected Normal NOT DETECTED [facility] Comment on above: Performed By: #### R SPLUS #### [facility] [address] [place] [address] Dr. Elaina Garnett Parainfluenza 4 Not detected Normal NOT DETECTED [facility] Comment on above: Performed By: #### R SPLUS #### [facility] [address] [place] [address] Dr. Elaina Garnett Rhino/Enterovirus Not detected Normal NOT DETECTED [facility] Comment on above: Performed By: #### R SPLUS #### [facility] [facility] [address] [place] [address] Dr. Elaina Garnett RP2 Header 1 RESPIRATORY PANEL: VIRUSES Normal [facility] Comment on above: Performed By: #### R SPLUS #### [facility] [address] [address] [address] Elaina Garnett RP2 Header 2 RESPIRATORY PANEL: BACTERIA Normal [facility] Comment on above: Performed By: #### R SPLUS #### [facility] [address] [address] [address] Elaina Garnett RSV Not detected Normal NOT DETECTED [facility] Comment on above: Performed By: #### R SPLUS #### [facility] [address] [place] [address] Dr. Elaina Garnett SARS-CoV-2 (COVID-19) RNA BARB+probe Ql (Unsp spec) Not detected Normal NOT DETECTED [facility] Comment on above: Performed By: #### R SPLUS #### [facility] [address] [place] [address] Dr. Elaina Garnett XR CHEST 1 Von [...] JUAN GARRETT Date: 2023-03-25 23:48 Normal [facility] CARDIAC MIKE ADMITon 023 CK [Catalytic activity/Vol] 219 U/L Critically high 26-192 [facility] Comment on above: Performed By: #### C BC #### [facility] [address] [place] [address] Dr. Elaina Garnett CK.MB [Mass/Vol] 1.21 ng/mL Normal <=3.60 [facility] Comment on above: Performed By: #### C BC #### [facility] [address] [place] [address] Dr. Elaina Garnett HSTROP 17.4 pg/mL Normal 4.0-51.3 [facility] Comment on above: Result Comment: CUT- OFF POINTS HAVE BEEN ESTABLISHED BASED ON THE FOURTH UNIVERSAL DEFINITIONS OF MYOCARDIAL INFARCTION. THE UPPER REFERENCE LIMIT (URL) OF TROPONIN, DEFINED THE 99TH PERCENTILE OF cTnI DISTRIBUTION IN A REFERENCE POPULATION, HAS BEEN CONFIRMED THE DECISION THRESHOLD FOR [place] DIAGNOSIS. Performed By: #### C BC #### [facility] [address] [place] [address] Dr. Elaina Garnett TAO 332 ng/mL Critically high 9-82 [facility] Comment on above: Performed By: #### C BC #### [facility] [address] [place] [address] Dr. Elaina Garnett CBC AUTO DIFFon 03-25-2023 BASO # 0.1 103/ul Normal 0.0-0.1 [facility] Comment on above: Performed By: #### C BC #### [facility] [address] [place] [address] Dr. Elaina Garnett Basophils/100 WBC (Bld) 0.6 % Normal 0.2-2.0 [facility] Comment on above: Performed By: #### C BC #### [facility] [address] [place] [address] Dr. Elaina Garnett EO # 0.2 103/ul Normal 0.0-0.7 [facility] Comment on above: Performed By: #### C BC #### [facility] [address] [place] [address] Dr. Elaina Garnett Eosinophils/100 WBC (Bld) 2.0 % Normal 0.9-7.0 [facility] Comment on above: Performed By: #### C BC #### [facility] [address] [place] [address] Dr. Elaina Garnett Erythrocyte distribution width (RBC) [Ratio] 12.9 % Normal 11.0-15.0 [facility] Comment on above: Performed By: #### C BC #### [facility] [address] [place] [address] Dr. Elaina Garnett Hematocrit (Bld) [Volume fraction] 33.6 % Critically low 36.0-48.0 [facility] Comment on above: Performed By: #### C BC #### [facility] [address] [address] [address] Elaina Garnett Hemoglobin (Bld) [Mass/Vol] 11.3 g/dL Critically low 12.0-16.0 [facility] Comment on above: Performed By: #### C BC #### [facility] [address] [address] [address] Elaina Garnett IG # 0.04 10e3/ul Critically high 0.00-0.03 [facility] Comment on above: Performed By: #### C BC #### [facility] [address] [place] [address] Dr. Elaina Garnett IG % 0.4 % Normal 0.0-0.5 [facility] Comment on above: Performed By: #### C BC #### [facility] [address] [place] [address] Dr. Elaina Garnett LYMPH # 1.8 103/ul Normal 1.2-3.8 [facility] Comment on above: Performed By: #### C BC #### [facility] [address] [place] [address] Dr. Elaina Garnett Lymphocytes/100 WBC (Bld) 19.5 % Critically low 20.5-60.0 [facility] Comment on above: Performed By: #### C BC #### [facility] [address] [place] [address] Dr. Elaina Garnett MANUAL DIFF REQ NO Normal [facility] Comment on above: Performed By: #### C BC #### [facility] [address] [place] [address] Dr. Elaina Garnett MCH (RBC) [Entitic mass] 30.8 pg Normal 26.7-34.0 [facility] Comment on above: Performed By: #### C BC #### [facility] [address] [place] [address] Dr. Elaina Garnett MCHC (RBC) [Mass/Vol] 33.6 g/dL Normal 29.9-35.2 [facility] Comment on above: Performed By: #### C BC #### [facility] [address] [address] [address] Elaina Garnett MCV (RBC) [Entitic vol] 91.6 fL Normal 81.0-99.0 [facility] Comment on above: Performed By: #### C BC #### [facility] [address] [address] [address] Elaina Garnett MONO # 1.9 103/ul Critically high 0.3-0.8 [facility] Comment on above: Performed By: #### C BC #### [facility] [address] [address] [address] Elaina Garnett Monocytes/100 WBC (Bld) 19.7 % Critically high 1.7-12.0 [facility] Comment on above: Performed By: #### C BC #### [facility] [address] [place] [address] Dr. Elaina Garnett NEUT # 5.4 103/ul Normal 1.4-6.5 [facility] Comment on above: Performed By: #### C BC #### [facility] [address] [address] [address] Elaina Garnett Neutrophils/100 WBC (Bld) 57.8 % Normal 43.0-75.0 [facility] Comment on above: Performed By: #### C BC #### [facility] [address] [place] [address] Dr. Elaina Garnett Platelet mean volume (Bld) [Entitic vol] 9.7 fL Normal 9.5-13.5 [facility] Comment on above: Performed By: #### C BC #### [facility] [address] [place] [address] Dr. Elaina Garnett PLT 272 103/ul Normal 150-450 [facility] Comment on above: Performed By: #### C BC #### [facility] [address] [place] [address] Dr. Elaina Garnett RBC 3.67 106/ul Critically low 4.20-5.40 [facility] Comment on above: Performed By: #### C BC #### [facility] [address] [address] [address] Elaina Garnett WBC 9.4 103/ul Normal 4.0-11.0 [facility] Comment on above: Performed By: #### C BC #### [facility] [address] [address] [address] Elaina Garnett LACTATE/LACTIC ACIDon 2022 Lactate [Moles/Vol] 0.7 mmol/L Normal 0.4-2.0 [facility] Comment on above: Performed By: #### C BC #### [facility] [address] [place] [address] Dr. Elaina Garnett PROF CHEM 8 (BAS METB)on Anion gap [Moles/Vol] 13.5 mmol/L Normal [facility] Comment on above: Performed By: #### C BC #### [facility] [address] [place] [address] Dr. Elaina Garnett Calcium [Mass/Vol] 9.0 mg/dL Normal 8.5-10.1 [facility] Comment on above: Performed By: #### C BC #### [facility] [address] [place] [address] Dr. Elaina Garnett Chloride [Moles/Vol] 109 mmol/L Critically high 98-107 [facility] Comment on above: Performed By: #### C BC #### [facility] [address] [place] [address] Dr. Elaina Garnett CO2 [Moles/Vol] 21.9 mmol/L Normal 21.0-32.0 [facility] Comment on above: Performed By: #### C BC #### [facility] [address] [place] [address] Dr. Elaina Garnett Creatinine [Mass/Vol] 2.03 mg/dL Critically high 0.55-1.02 [facility] Comment on above: Performed By: #### C BC #### [facility] [address] [place] [address] Dr. Elaina Garnett EGFR-AF [place] 29 mL/min/1.73m2 Critically low >=60 [facility] Comment on above: Performed By: #### C BC #### [facility] [address] [address] [address] Elaina Garnett EGFR-NON AF [place] 24 mL/min/1.73m2 Critically low >=60 [facility] Comment on above: Performed By: #### C BC #### [facility] [address] [address] [address] Elaina Garnett Glucose [Mass/Vol] 72 mg/dL Critically low 74-106 [facility] Comment on above: Performed By: #### C BC #### [facility] [address] [address] [address] Elaina Garnett Potassium [Moles/Vol] 4.4 mmol/L Normal 3.5-5.1 [facility] Comment on above: Performed By: #### C BC #### [facility] [address] [address] [address] Elaina Garnett Sodium [Moles/Vol] 140 mmol/L Normal 136-145 [facility] Comment on above: Performed By: #### C BC #### [facility] [address] [address] [address] Elaina Garnett Urea nitrogen [Mass/Vol] 70.0 mg/dL Critically high 7.0-18.0 [facility] Comment on above: Performed By: #### C BC #### [facility] [address] [address] [address] Elaina Garnett Urea nitrogen/Creatinine [Mass ratio] 34.5 mg/mg Normal [facility] Comment on above: Performed By: #### C BC #### [facility] [address] [address] [address] Elaina Garnett CBC panel Auto (Bld)on 01-10 Erythrocyte distribution width (RBC) [Ratio] 13.3 % 11.5 - 15.0 % [facility] Hematocrit (Bld) [Volume fraction] 39.4 % 36.0 - 46.0 % [facility] Hemoglobin (Bld) [Mass/Vol] 12.5 g/dL 11.5 - 15.5 g/dL [facility] MCH (RBC) [Entitic mass] 29.1 pg 26.0 - 34.0 pg [facility] MCHC (RBC) [Mass/Vol] 31.7 g/dL 30.5 - 36.0 g/dL [facility] MCV (RBC) [Entitic vol] 91.6 fL 80.0 - 100.0 fL [facility] Nucleated RBC (Bld) [#/Vol] <0.01 k/uL [facility] Platelet mean volume (Bld) [Entitic vol] 10.4 fL 9.0 - 12.7 fL [facility] Platelets (Bld) [#/Vol] 256 10*3/uL 150 - 400 k/uL [facility] RBC (Bld) [#/Vol] 4.30 10*6/uL 3.90 - 5.2 0 m/uL [facility] WBC (Bld) [#/Vol] 7.54 10*3/uL 3.70 - 11. 00 k/uL [facility] PTH INTACT BLDon 01-10-2023 Parathyrin.intact [Mass/Vol] 65 pg/mL 15 - 65 pg/mL [facility] Renal function 2000 panelon 01-10-2023 Albumin [Mass/Vol] 4.3 g/dL 3.9 - 4.9 g/dL [facility] Anion gap [Moles/Vol] 12 mmol/L 9 - 18 mmol/L [facility] Calcium [Mass/Vol] 9.9 mg/dL 8.5 - 10. 2 mg/dL [facility] Chloride [Moles/Vol] 102 mmol/L 97 - 10 5 mmol/L [facility] CO2 [Moles/Vol] 24 mmol/L 22 - 30 mmol/L [facility] Creatinine [Mass/Vol] 2.00 mg/dL High 0.58 - 0.96 mg/dL [facility] Estimated Glomerular Filtration Rate 25 mL/min/1.73m Low >=60 mL/min/1.73m [facility] Glucose [Mass/Vol] 309 mg/dL High 74 - 99 mg/dL [facility] Phosphate [Mass/Vol] 4.2 mg/dL 2.7 - 4 .8 mg/dL [facility] Potassium [Moles/Vol] 4.9 mmol/L 3.7 - 5.1 mmol/L [facility] Sodium [Moles/Vol] 138 mmol/L 136 - 144 mmol/L [facility] Urea nitrogen [Mass/Vol] 81 mg/dL High 7 - 21 mg/dL [facility] CARDIAC MIKE 3-6on 2 CK [Catalytic activity/Vol] 107 U/L Normal 26-192 [facility] Comment on above: Performed By: #### C MREP #### [facility] [address] [address] [address] Elaina Garnett CK.MB [Mass/Vol] 2.62 ng/mL Normal <=3.60 [facility] Comment on above: Performed By: #### C MREP #### [facility] [address] [address] [address] Elaina Garnett HSTROP 9.0 pg/mL Normal 4.0-51.3 [facility] Comment on above: Result Comment: CUT- OFF POINTS HAVE BEEN ESTABLISHED BASED ON THE FOURTH UNIVERSAL DEFINITIONS OF MYOCARDIAL INFARCTION. THE UPPER REFERENCE LIMIT (URL) OF TROPONIN, DEFINED THE 99TH PERCENTILE OF cTnI DISTRIBUTION IN A REFERENCE POPULATION, HAS BEEN CONFIRMED THE DECISION THRESHOLD FOR [place] DIAGNOSIS. Performed By: #### C MREP #### [facility] [address] [address] [address] Elaina Garnett CBC AUTO DIFFon 11-05-2022 BASO # 0.1 103/ul Normal 0.0-0.1 [facility] Comment on above: Performed By: #### C BC #### [facility] [address] [place] [address] Dr. Elaina Garnett Basophils/100 WBC (Bld) 0.6 % Normal 0.2-2.0 [facility] Comment on above: Performed By: #### C BC #### [facility] [address] [address] [address] Elaina Garnett EO # 0.2 103/ul Normal 0.0-0.7 [facility] Comment on above: Performed By: #### C BC #### [facility] [address] [address] [address] Elaina Garnett Eosinophils/100 WBC (Bld) 2.1 % Normal 0.9-7.0 [facility] Comment on above: Performed By: #### C BC #### [facility] [address] [address] [address] Elaina Garnett Erythrocyte distribution width (RBC) [Ratio] 13.2 % Normal 11.0-15.0 [facility] Comment on above: Performed By: #### C BC #### [facility] [address] [place] [address] Dr. Elaina Garnett Hematocrit (Bld) [Volume fraction] 37.1 % Normal 36.0-48.0 [facility] Comment on above: Performed By: #### C BC #### [facility] [address] [place] [address] Dr. Elaina Garnett Hemoglobin (Bld) [Mass/Vol] 12.4 g/dL Normal 12.0-16.0 [facility] Comment on above: Performed By: #### C BC #### [facility] [address] [place] [address] Dr. Elaina Garnett IG # 0.02 10e3/ul Normal 0.00-0.03 [facility] Comment on above: Performed By: #### C BC #### [facility] [address] [place] [address] Dr. Elaina Garnett IG % 0.2 % Normal 0.0-0.5 [facility] Comment on above: Performed By: #### C BC #### [facility] [address] [place] [address] Dr. Elaina Garnett LYMPH # 2.0 103/ul Normal 1.2-3.8 [facility] Comment on above: Performed By: #### C BC #### [facility] [address] [place] [address] Dr. Elaina Garnett Lymphocytes/100 WBC (Bld) 23.4 % Normal 20.5-60.0 [facility] Comment on above: Performed By: #### C BC #### [facility] [address] [place] [address] Dr. Elaina Garnett MANUAL DIFF REQ NO Normal [facility] Comment on above: Performed By: #### C BC #### [facility] [address] [address] [address] Elaina Garnett MCH (RBC) [Entitic mass] 29.8 pg Normal 26.7-34.0 [facility] Comment on above: Performed By: #### C BC #### [facility] [address] [place] [address] Dr. Elaina Garnett MCHC (RBC) [Mass/Vol] 33.4 g/dL Normal 29.9-35.2 [facility] Comment on above: Performed By: #### C BC #### [facility] [address] [place] [address] Dr. Elaina Garnett MCV (RBC) [Entitic vol] 89.2 fL Normal 81.0-99.0 [facility] Comment on above: Performed By: #### C BC #### [facility] [address] [place] [address] Dr. Elaina Garnett MONO # 1.1 103/ul Critically high 0.3-0.8 [facility] Comment on above: Performed By: #### C BC #### [facility] [address] [place] [address] Dr. Elaina Garnett Monocytes/100 WBC (Bld) 12.1 % Critically high 1.7-12.0 [facility] Comment on above: Performed By: #### C BC #### [facility] [address] [place] [address] Dr. Elaina Garnett NEUT # 5.4 103/ul Normal 1.4-6.5 [facility] Comment on above: Performed By: #### C BC #### [facility] [address] [place] [address] Dr. Elaina Garnett Neutrophils/100 WBC (Bld) 61.6 % Normal 43.0-75.0 [facility] Comment on above: Performed By: #### C BC #### [facility] [address] [place] [address] Dr. Elaina Garnett Platelet mean volume (Bld) [Entitic vol] 10.2 fL Normal 9.5-13.5 [facility] Comment on above: Performed By: #### C BC #### [facility] [address] [address] [address] Elaina Garnett PLT 202 103/ul Normal 150-450 [facility] Comment on above: Performed By: #### C BC #### [facility] [address] [id number] [address] Elaina Garnett RBC 4.16 106/ul Critically low 4.20-5.40 [facility] Comment on above: Performed By: #### C BC #### [facility] [address] [place] [address] Dr. Elaina Garnett WBC 8.7 103/ul Normal 4.0-11.0 [facility] Comment on above: Performed By: #### C BC #### [facility] [address] [place] [address] Dr. Elaina Garnett POINT OF CARE GLUCOSEon 10-27 Glucose [Mass/Vol] 183 mg/dL Critically high 74-106 [facility] Comment on above: Performed By: #### C MP #### [facility] [address] [place] [address] Dr. Elaina Garnett PROF 14(COMP METB)on 022 Albumin [Mass/Vol] 3.0 g/dL Critically low 3.4-5.0 [facility] Comment on above: Performed By: #### C MP #### [facility] [address] [place] [address] Dr. Elaina Garnett Albumin/Globulin [Mass ratio] 0.8 {ratio} Normal [facility] Comment on above: Performed By: #### C MP #### [facility] [address] [place] [address] Dr. Elaina Garnett ALP [Catalytic activity/Vol] 81 U/L Normal 46-116 [facility] Comment on above: Performed By: #### C MP #### [facility] [address] [place] [address] Dr. Elaina Garnett ALT [Catalytic activity/Vol] 13 U/L Critically low 14-59 [facility] Comment on above: Performed By: #### C MP #### [facility] [address] [address] [address] Elaina Garnett Anion gap [Moles/Vol] 13.0 mmol/L Normal [facility] Comment on above: Performed By: #### C MP #### [facility] [address] [address] [address] Elaina Garnett AST [Catalytic activity/Vol] 17 U/L Normal 15-37 [facility] Comment on above: Performed By: #### C MP #### [facility] [address] [address] [address] Elaina Garnett Bilirubin [Mass/Vol] 0.5 mg/dL Normal 0.2-1.0 [facility] Comment on above: Performed By: #### C MP #### [facility] [address] [place] [address] Dr. Elaina Garnett Calcium [Mass/Vol] 8.3 mg/dL Critically low 8.5-10.1 [facility] Comment on above: Performed By: #### C MP #### [facility] [address] [address] [address] Elaina Garnett Chloride [Moles/Vol] 106 mmol/L Normal 98-107 [facility] Comment on above: Performed By: #### C MP #### [facility] [address] [place] [address] Dr. Elaina Garnett CO2 [Moles/Vol] 24.4 mmol/L Normal 21.0-32.0 [facility] Comment on above: Performed By: #### C MP #### [facility] [address] [address] [address] Elaina Garnett Creatinine [Mass/Vol] 2.13 mg/dL Critically high 0.55-1.02 [facility] Comment on above: Performed By: #### C MP #### [facility] [address] [place] [address] Dr. Elaina Garnett EGFR-AF [place] 27 mL/min/1.73m2 Critically low >=60 [facility] Comment on above: Performed By: #### C MP #### [facility] [address] [address] [address] Elaina Garnett EGFR-NON AF [place] 22 mL/min/1.73m2 Critically low >=60 [facility] Comment on above: Performed By: #### C MP #### [facility] [address] [address] [address] Elaina Garnett Globulin (S) [Mass/Vol] 3.6 g/dL Normal [facility] Comment on above: Performed By: #### C MP #### [facility] [address] [address] [address] Elaina Garnett Glucose [Mass/Vol] 209 mg/dL Critically high 74-106 [facility] Comment on above: Performed By: #### C MP #### [facility] [address] [place] [address] Dr. Elaina Garnett Potassium [Moles/Vol] 4.4 mmol/L Normal 3.5-5.1 [facility] Comment on above: Performed By: #### C MP #### [facility] [address] [place] [address] Dr. Elaina Garnett Protein [Mass/Vol] 6.6 g/dL Normal 6.4-8.2 [facility] Comment on above: Performed By: #### C MP #### [facility] [address] [place] [address] Dr. Elaina Garnett Sodium [Moles/Vol] 139 mmol/L Normal 136-145 [facility] Comment on above: Performed By: #### C MP #### [facility] [address] [address] [address] Elaina Garnett Urea nitrogen [Mass/Vol] 101.0 mg/dL Critically high 7.0-18.0 [facility] Comment on above: Performed By: #### C MP #### [facility] [address] [address] [address] Elaina Garnett Urea nitrogen/Creatinine [Mass ratio] 47.4 mg/mg Normal [facility] Comment on above: Performed By: #### C MP #### [facility] [address] [address] [address] Elaina Garnett UA (CLEAN/CATCH) BMET/MICRO I F IND.on 11-05-2022 Bilirubin Ql (U) Negative Normal NEGATIVE [facility] Comment on above: Performed By: #### R SPLUS #### [facility] [address] [place] [address] Dr. Elaina Garnett Clarity (U) CLEAR Normal CLEAR [facility] Comment on above: Performed By: #### R SPLUS #### [facility] [address] [place] [address] Dr. Elaina Garnett Color (U) LT. YELLOW Normal YELLOW [facility] Comment on above: Performed By: #### R SPLUS #### [facility] [address] [place] [address] Dr. Elaina Garnett Glucose Ql (U) Negative Normal NEGATIVE [facility] Comment on above: Performed By: #### R SPLUS #### [facility] [address] [place] [address] Dr. Elaina Garnett Hemoglobin Ql (U) Negative Normal NEGATIVE [facility] Comment on above: Performed By: #### R SPLUS #### [facility] [address] [place] [address] Dr. Elaina Garnett Ketones Ql (U) Negative Normal NEGATIVE [facility] Comment on above: Performed By: #### R SPLUS #### [facility] [address] [place] [address] Dr. Elaina Garnett LEUKOCYTES Negative Normal NEGATIVE [facility] Comment on above: Performed By: #### R SPLUS #### [facility] [address] [place] [address] Dr. Elaina Garnett Nitrite Ql (U) Negative Normal NEGATIVE [facility] Comment on above: Performed By: #### R SPLUS #### [facility] [address] [place] [address] Dr. Elaina Garnett pH (U) 5.5 [pH] Normal 5-9 [facility] Comment on above: Performed By: #### R SPLUS #### [facility] [address] [place] [address] Dr. Elaina Garnett SPEC GRAVITY 1.010 Normal 1.005-<=1.025 [facility] Comment on above: Performed By: #### R SPLUS #### [facility] [address] [place] [address] Dr. Elaina Garnett UA PROTEIN Negative Normal NEGATIVE/ TRACE [facility] Comment on above: Performed By: #### R SPLUS #### [facility] [address] [place] [address] Dr. Elaina Garnett UR MICRO IND NOT INDICATED Normal [facility] Comment on above: Performed By: #### R SPLUS #### [facility] [address] [place] [address] Dr. Elaina Garnett Urobilinogen Qn (U) 0.2 {Danny'U}/dL Normal 0.2 - 1. 0 [facility] Comment on above: Performed By: #### R SPLUS #### [facility] [address] [place] [address] Dr. Elaina Garnett BLOOD GASES BTYon 11-04-2022 ALLENS TEST Positive [facility] Comment on above: Result Comment: TEST NOT PERFORMED- RESULTED IN ERROR Previously reported as: POSITIVE On 11/04/2022 17:32 By LM4 Performed By: #### C BC #### [facility] [address] [place] [address] Dr. Elaina Garnett BIPAP PRESSURE Normal [facility] Comment on above: Performed By: #### C BC #### [facility] [address] [place] [address] Dr. Elaina Garnett CPAP [facility] Comment on above: Performed By: #### C BC #### [facility] [address] [place] [address] Dr. Elaina Garnett FIO2 [facility] Comment on above: Performed By: #### C BC #### [facility] [address] [place] [address] Dr. Elaina Garnett LPM [facility] Comment on above: Performed By: #### C BC #### [facility] [address] [place] [address] Dr. Elaina Garnett MINUTE VOLUME Normal [facility] Comment on above: Performed By: #### C BC #### [facility] [address] [place] [address] Dr. Elaina Garnett [facility] Comment on above: Performed By: #### C BC #### [facility] [address] [place] [address] Dr. Elaina Garnett PIP [facility] Comment on above: Performed By: #### C BC #### [facility] [address] [place] [address] Dr. Elaina Garnett PS [facility] Comment on above: Performed By: #### C BC #### [facility] [address] [place] [address] Dr. Elaina Garnett RATE [facility] Comment on above: Performed By: #### C BC #### [facility] [address] [place] [address] Dr. Elaina Garnett VENT MODE [facility] Comment on above: Performed By: #### C BC #### [facility] [address] [place] [address] Dr. Elaina Garnett [facility] Comment on above: Performed By: #### C BC #### [facility] [address] [place] [address] Dr. Elaina Garnett BNPon 11-04-2022 Natriuretic peptide B (Bld) [Mass/Vol] 356.0 pg/mL Normal <=1,800.0 [facility] Comment on above: Performed By: #### C BC #### [facility] [address] [place] [address] Dr. Elaina Garnett BUNon 11-04-2022 Urea nitrogen [Mass/Vol] 112.0 mg/dL Critically high 7.0-18.0 [facility] Comment on above: Performed By: #### B UN #### [facility] [address] [place] [address] Dr. Elaina Garnett CARDIAC MIKE 3-6on 2 CK [Catalytic activity/Vol] 100 U/L Normal 26-192 [facility] Comment on above: Performed By: #### C MREP #### [facility] [address] [address] [address] Elaina Garnett CK.MB [Mass/Vol] 2.57 ng/mL Normal <=3.60 [facility] Comment on above: Performed By: #### C MREP #### [facility] [address] [address] [address] Elaina Garnett HSTROP 7.3 pg/mL Normal 4.0-51.3 [facility] Comment on above: Result Comment: CUT- OFF POINTS HAVE BEEN ESTABLISHED BASED ON THE FOURTH UNIVERSAL DEFINITIONS OF MYOCARDIAL INFARCTION. THE UPPER REFERENCE LIMIT (URL) OF TROPONIN, DEFINED THE 99TH PERCENTILE OF cTnI DISTRIBUTION IN A REFERENCE POPULATION, HAS BEEN CONFIRMED THE DECISION THRESHOLD FOR OK DIAGNOSIS. Performed By: #### C MREP #### [facility] [address] [address] [address] Elaina Garnett CARDIAC MIKE ADMITon 022 CK [Catalytic activity/Vol] 97 U/L Normal 26-192 [facility] Comment on above: Performed By: #### C BC #### [facility] [address] [address] [address] Elaina Garnett CK.MB [Mass/Vol] 2.35 ng/mL Normal <=3.60 [facility] Comment on above: Performed By: #### C BC #### [facility] [address] [address] [address] Elaina Garnett HSTROP 7.8 pg/mL Normal 4.0-51.3 [facility] Comment on above: Result Comment: CUT- OFF POINTS HAVE BEEN ESTABLISHED BASED ON THE FOURTH UNIVERSAL DEFINITIONS OF MYOCARDIAL INFARCTION. THE UPPER REFERENCE LIMIT (URL) OF TROPONIN, DEFINED THE 99TH PERCENTILE OF cTnI DISTRIBUTION IN A REFERENCE POPULATION, HAS BEEN CONFIRMED THE DECISION THRESHOLD FOR OK DIAGNOSIS. Performed By: #### C BC #### [facility] [address] [address] [address] Elaina Garnett TAO 155 ng/mL Critically high 9-82 [facility] Comment on above: Performed By: #### C BC #### [facility] [address] [address] [address] Elaina Garnett CBC AUTO DIFFon 11-04-2022 BASO # 0.1 103/ul Normal 0.0-0.1 [facility] Comment on above: Performed By: #### R SPLUS #### [facility] [address] [place] [address] Dr. Elaina Garnett Basophils/100 WBC (Bld) 1.0 % Normal 0.2-2.0 [facility] Comment on above: Performed By: #### R SPLUS #### [facility] [address] [place] [address] Dr. Elaina Garnett EO # 0.3 103/ul Normal 0.0-0.7 [facility] Comment on above: Performed By: #### R SPLUS #### [facility] [address] [place] [address] Dr. Elaina Garnett Eosinophils/100 WBC (Bld) 3.2 % Normal 0.9-7.0 [facility] Comment on above: Performed By: #### R SPLUS #### [facility] [address] [place] [address] Dr. Elaina Garnett Erythrocyte distribution width (RBC) [Ratio] 13.2 % Normal 11.0-15.0 [facility] Comment on above: Performed By: #### R SPLUS #### [facility] [address] [place] [address] Dr. Elaina Garnett Hematocrit (Bld) [Volume fraction] 42.5 % Normal 36.0-48.0 [facility] Comment on above: Performed By: #### R SPLUS #### [facility] [address] [place] [address] Dr. Elaina Garnett Hemoglobin (Bld) [Mass/Vol] 14.3 g/dL Normal 12.0-16.0 [facility] Comment on above: Performed By: #### R SPLUS #### [facility] [address] [place] [address] Dr. Elaina Garnett IG # 0.03 10e3/ul Normal 0.00-0.03 [facility] Comment on above: Performed By: #### R SPLUS #### [facility] [address] [place] [address] Dr. Elaina Garnett IG % 0.3 % Normal 0.0-0.5 [facility] Comment on above: Performed By: #### R SPLUS #### [facility] [address] [place] [address] Dr. Elaina Garnett LYMPH # 3.2 103/ul Normal 1.2-3.8 [facility] Comment on above: Performed By: #### R SPLUS #### [facility] [address] [place] [address] Dr. Elaina Garnett Lymphocytes/100 WBC (Bld) 32.2 % Normal 20.5-60.0 [facility] Comment on above: Performed By: #### R SPLUS #### [facility] [address] [place] [address] Dr. Elaina Garnett MANUAL DIFF REQ NO Normal [facility] Comment on above: Performed By: #### R SPLUS #### [facility] [address] [place] [address] Dr. Elaina Garnett MCH (RBC) [Entitic mass] 29.5 pg Normal 26.7-34.0 [facility] Comment on above: Performed By: #### R SPLUS #### [facility] [address] [place] [address] Dr. Elaina Garnett MCHC (RBC) [Mass/Vol] 33.6 g/dL Normal 29.9-35.2 [facility] Comment on above: Performed By: #### R SPLUS #### [facility] [address] [place] [address] Dr. Elaina Garnett MCV (RBC) [Entitic vol] 87.8 fL Normal 81.0-99.0 [facility] Comment on above: Performed By: #### R SPLUS #### [facility] [address] [place] [address] Dr. Elaina Garnett MONO # 1.5 103/ul Critically high 0.3-0.8 [facility] Comment on above: Performed By: #### R SPLUS #### [facility] [address] [address] [address] Elaina Garnett Monocytes/100 WBC (Bld) 14.5 % Critically high 1.7-12.0 [facility] Comment on above: Performed By: #### R SPLUS #### [facility] [address] [address] [address] Elaina Garnett NEUT # 4.9 103/ul Normal 1.4-6.5 [facility] Comment on above: Performed By: #### R SPLUS #### [facility] [address] [address] [address] Elaina Garnett Neutrophils/100 WBC (Bld) 48.8 % Normal 43.0-75.0 [facility] Comment on above: Performed By: #### R SPLUS #### [facility] [address] [place] [address] Dr. Elaina Garnett Platelet mean volume (Bld) [Entitic vol] 9.8 fL Normal 9.5-13.5 [facility] Comment on above: Performed By: #### R SPLUS #### [facility] [address] [address] [address] Elaina Garnett PLT 277 103/ul Normal 150-450 [facility] Comment on above: Performed By: #### R SPLUS #### [facility] [address] [place] [address] Dr. Elaina Garnett RBC 4.84 106/ul Normal 4.20-5.40 [facility] Comment on above: Performed By: #### R SPLUS #### [facility] [address] [place] [address] Dr. Elaina Garnett WBC 10.0 103/ul Normal 4.0-11.0 [facility] Comment on above: Performed By: #### R SPLUS #### [facility] [address] [place] [address] HEAD WO CONon [...] JUAN GARRETT Date: 2022-11-04 17:14 Normal [facility]on SARS-CoV-2 (COVID-19) RNA BARB+probe Ql (Unsp spec) Not detected Normal NOT DETECTED [facility] Comment on above: Result Comment: When [...] for this test is supported by the Reconciliation Clerk of Health and Human Service's declaration that [...] used). Performed By: #### R SPLUS #### [facility] [address] [place] [address] [id number] [address] Elaina Garnett INFLUENZA A AND B AGon 11-04 INFLUANEGH SEE BELOW Normal [facility] Comment on above: Result Comment: Nega tive for Flu A protein angiten. Infection due to Flu A cannot be ruled out. Flu A angiten in the sample may be below the detection limit of the test. Performed By: #### C BC #### [facility] [address] [place] [address] Dr. [facility] SEE BELOW Normal [facility] Comment on above: Result Comment: Nega tive for Flu B protein antigen. Infection due to Flu B cannot be ruled out. Flu B antigen in the sample may be below the detection limit of the test. Performed By: #### C BC #### [facility] [address] [place] [address] Dr. Elaina Garnett INFLUENZA A AG Negative Normal NEGATIVE SEE COMMENT [facility] Comment on above: Performed By: #### C BC #### [facility] [address] [place] [address] Dr. Elaina Garnett INFLUENZA B AG Negative Normal NEGATIVE SEE COMMENT [facility] Comment on above: Performed By: #### C BC #### [facility] [address] [place] [address] Dr. Elaina Garnett INTERNAL CONTROLS Within Normal Limits Normal Wi thin Normal Limits [facility] Comment on above: Performed By: #### C BC #### [facility] [address] [place] [address] Dr. Elaina Garnett LIPASEon 11-04-2022 Lipase [Catalytic activity/Vol] 163.0 U/L Normal 73.0-393.0 [facility] Comment on above: Performed By: #### C BC #### [facility] [address] [place] [address] Dr. Elaina Garnett POINT OF CARE GLUCOSEon Glucose [Mass/Vol] 246 mg/dL Critically high -106 [facility] Comment on above: Performed By: #### P OCGLUC #### [facility] [address] [place] [address] Dr. Elaina Garnett Glucose [Mass/Vol] 224 mg/dL Critically high -106 [facility] Comment on above: Performed By: #### P OCGLUC #### [facility] [address] [place] [address] Dr. Elaina Garnett Glucose [Mass/Vol] 113 mg/dL Critically high -106 [facility] Comment on above: Performed By: #### C BC #### [facility] [address] [address] [address] Elaina Garnett Glucose [Mass/Vol] 47 mg/dL Critically low 74-106 [facility] Comment on above: Result Comment: DR Lizeth KAM Performed By: #### P OCGLUC #### [facility] [address] [address] [address] Elaina Garnett Glucose [Mass/Vol] 127 mg/dL Critically high 74-106 [facility] Comment on above: Performed By: #### C BC #### [facility] [address] [place] [address] Dr. Elaina Garnett PROF 14(COMP METB)on 022 Albumin [Mass/Vol] 4.1 g/dL Normal 3.4-5.0 [facility] Comment on above: Performed By: #### C BC #### [facility] [address] [place] [address] Dr. Elaina Garnett Albumin/Globulin [Mass ratio] 0.9 {ratio} Normal [facility] Comment on above: Performed By: #### C BC #### [facility] [address] [place] [address] Dr. Elaina Garnett ALP [Catalytic activity/Vol] 105 U/L Normal 46-116 [facility] Comment on above: Performed By: #### C BC #### [facility] [address] [place] [address] Dr. Elaina Garnett ALT [Catalytic activity/Vol] 19 U/L Normal 14-59 [facility] Comment on above: Performed By: #### C BC #### [facility] [address] [place] [address] Dr. Elaina Garnett Anion gap [Moles/Vol] 14.1 mmol/L Normal [facility] Comment on above: Performed By: #### C BC #### [facility] [address] [place] [address] Dr. Elaina Garnett AST [Catalytic activity/Vol] 20 U/L Normal 15-37 [facility] Comment on above: Performed By: #### C BC #### [facility] [address] [address] [address] Elaina Garnett Bilirubin [Mass/Vol] 0.6 mg/dL Normal 0.2-1.0 [facility] Comment on above: Performed By: #### C BC #### [facility] [address] [address] [address] Elaina Garnett Calcium [Mass/Vol] 9.8 mg/dL Normal 8.5-10.1 [facility] Comment on above: Performed By: #### C BC #### [facility] [address] [address] [address] Elaian Garnett Chloride [Moles/Vol] 102 mmol/L Normal 98-107 [facility] Comment on above: Performed By: #### C BC #### [facility] [address] [address] [address] Elaina Garnett CO2 [Moles/Vol] 27.7 mmol/L Normal 21.0-32.0 [facility] Comment on above: Performed By: #### C BC #### [facility] [address] [address] [address] Elaina Garnett Creatinine [Mass/Vol] 2.25 mg/dL Critically high 0.55-1.02 [facility] Comment on above: Performed By: #### C BC #### [facility] [address] [address] [address] Elaina Garnett EGFR-AF [place] 25 mL/min/1.73m2 Critically low >=60 [facility] Comment on above: Performed By: #### C BC #### [facility] [address] [address] [address] Elaina Garnett EGFR-NON AF [place] 21 mL/min/1.73m2 Critically low >=60 [facility] Comment on above: Performed By: #### C BC #### [facility] [address] [id number] [address] Elaina Garnett Globulin (S) [Mass/Vol] 4.6 g/dL Normal [facility] Comment on above: Performed By: #### C BC #### [facility] [address] [address] [address] Elaina Garnett Glucose [Mass/Vol] 27 mg/dL Critically low 74-106 [facility] Comment on above: Performed By: #### C BC #### [facility] [address] [address] [address] Elaina Garnett Potassium [Moles/Vol] 3.8 mmol/L Normal 3.5-5.1 [facility] Comment on above: Performed By: #### C BC #### [facility] [address] [address] [address] Elaina Garnett Protein [Mass/Vol] 8.7 g/dL Critically high 6.4-8.2 [facility] Comment on above: Performed By: #### C BC #### [facility] [address] [address] [address] Elaina Garnett Sodium [Moles/Vol] 140 mmol/L Normal 136-145 [facility] Comment on above: Performed By: #### C BC #### [facility] [address] [address] [address] Elaina Garnett Urea nitrogen [Mass/Vol] 117.0 mg/dL Critically high 7.0-18.0 [facility] Comment on above: Performed By: #### C BC #### [facility] [address] [address] [address] Elaina Garnett Urea nitrogen/Creatinine [Mass ratio] 52.0 mg/mg Normal [facility] Comment on above: Performed By: #### C BC #### [facility] [address] [address] [address] Elaina Garnett PROTIMEon 11-04-2022 INR Coag (PPP) [Relative time] 1.00 {INR} Normal [facility] Comment on above: Performed By: #### C BC #### [facility] [address] [address] [address] Elaina Garnett INR GUIDELINES SEE BELOW Normal [facility] Comment on above: Result Comment: HOA RED INR: 2.0 - 3.0 CONDITIONS NOT LISTED BELOW 2.5 - 3.5 FOR PROSTHETIC HEART VALVE REPLACEMENT 2.5 - 3.5 RECURRENT THROMBOSIS Performed By: #### C BC #### [facility] [address] [place] [address] Dr. Elaina Garnett PT Coag (PPP) [Time] 10.8 s Normal 9.0-11.6 [facility] Comment on above: Performed By: #### C BC #### [facility] [address] [place] [address] Dr. Elaina Garnett PTTon 11-04-2022 aPTT Coag (Bld) [Time] 28.5 s Normal 22.3-36.2 [facility] Comment on above: Performed By: #### C BC #### [facility] [address] [place] [address] Dr. Elaina Garnett XR CHEST 1 Von [...] ELLEN EL Date: 2022-11-04 16:54 Normal [facility] BNPon 09-14-2022 Natriuretic peptide B (Bld) [Mass/Vol] 685.0 pg/mL Normal <=1,800.0 [facility] Comment on above: Performed By: #### C MP #### [facility] [address] [place] [address] Dr. Elaina Garnett BUNon 09-14-2022 Urea nitrogen [Mass/Vol] 67.0 mg/dL Critically high 7.0-18.0 [facility] Comment on above: Performed By: #### C MP #### [facility] [address] [place] [address] Dr. Elaina Garnett CBC AUTO DIFFon 09-14-2022 BASO # 0.1 103/ul Normal 0.0-0.1 [facility] Comment on above: Performed By: #### C BC #### [facility] [address] [place] [address] Dr. Elaina Garnett Basophils/100 WBC (Bld) 1.1 % Normal 0.2-2.0 [facility] Comment on above: Performed By: #### C BC #### [facility] [address] [place] [address] Dr. Elaina Garnett EO # 0.3 103/ul Normal 0.0-0.7 [facility] Comment on above: Performed By: #### C BC #### [facility] [address] [place] [address] Dr. Elaina Garnett Eosinophils/100 WBC (Bld) 3.6 % Normal 0.9-7.0 [facility] Comment on above: Performed By: #### C BC #### [facility] [address] [place] [address] Dr. Elaina Garnett Erythrocyte distribution width (RBC) [Ratio] 13.8 % Normal 11.0-15.0 [facility] Comment on above: Performed By: #### C BC #### [facility] [address] [place] [address] Dr. Elaina Garnett Hematocrit (Bld) [Volume fraction] 40.7 % Normal 36.0-48.0 [facility] Comment on above: Performed By: #### C BC #### [facility] [address] [place] [address] Dr. Elaina Garnett Hemoglobin (Bld) [Mass/Vol] 13.4 g/dL Normal 12.0-16.0 [facility] Comment on above: Performed By: #### C BC #### [facility] [address] [place] [address] Dr. Elaina Garnett IG # 0.02 10e3/ul Normal 0.00-0.03 [facility] Comment on above: Performed By: #### C BC #### [facility] [address] [place] [address] Dr. Elaina Garnett IG % 0.2 % Normal 0.0-0.5 [facility] Comment on above: Performed By: #### C BC #### [facility] [address] [place] [address] Dr. Elaina Garnett LYMPH # 2.2 103/ul Normal 1.2-3.8 [facility] Comment on above: Performed By: #### C BC #### [facility] [address] [place] [address] Dr. Elaina Garnett Lymphocytes/100 WBC (Bld) 26.0 % Normal 20.5-60.0 [facility] Comment on above: Performed By: #### C BC #### [facility] [address] [place] [address] Dr. Elaina Garnett MANUAL DIFF REQ NO Normal [facility] Comment on above: Performed By: #### C BC #### [facility] [address] [place] [address] Dr. Elaina Garnett MCH (RBC) [Entitic mass] 30.7 pg Normal 26.7-34.0 [facility] Comment on above: Performed By: #### C BC #### [facility] [address] [place] [address] Dr. Elaina Garnett MCHC (RBC) [Mass/Vol] 32.9 g/dL Normal 29.9-35.2 [facility] Comment on above: Performed By: #### C BC #### [facility] [address] [place] [address] Dr. Elaina Garnett MCV (RBC) [Entitic vol] 93.3 fL Normal 81.0-99.0 [facility] Comment on above: Performed By: #### C BC #### [facility] [address] [place] [address] Dr. Elaina Garnett MONO # 1.0 103/ul Critically high 0.3-0.8 [facility] Comment on above: Performed By: #### C BC #### [facility] [address] [place] [address] Dr. Elaina Garnett Monocytes/100 WBC (Bld) 12.4 % Critically high 1.7-12.0 [facility] Comment on above: Performed By: #### C BC #### [facility] [address] [place] [address] Dr. Elaina Garnett NEUT # 4.7 103/ul Normal 1.4-6.5 [facility] Comment on above: Performed By: #### C BC #### [facility] [address] [place] [address] Dr. Elaina Garnett Neutrophils/100 WBC (Bld) 56.7 % Normal 43.0-75.0 [facility] Comment on above: Performed By: #### C BC #### [facility] [address] [place] [address] Dr. Elaina Garnett Platelet mean volume (Bld) [Entitic vol] 9.7 fL Normal 9.5-13.5 [facility] Comment on above: Performed By: #### C BC #### [facility] [address] [place] [address] Dr. Elaina Garnett PLT 230 103/ul Normal 150-450 [facility] Comment on above: Performed By: #### C BC #### [facility] [address] [place] [address] Dr. Elaina Garnett RBC 4.36 106/ul Normal 4.20-5.40 [facility] Comment on above: Performed By: #### C BC #### [facility] [address] [place] [address] Dr. Elaina Garnett WBC 8.3 103/ul Normal 4.0-11.0 [facility] Comment on above: Performed By: #### C BC #### [facility] [address] [place] [address] Dr. Elaina Garnett CREATININEon 09-14-2022 Creatinine [Mass/Vol] 1.93 mg/dL Critically high 0.55-1.02 [facility] Comment on above: Performed By: #### C MP #### [facility] [address] [place] [address] Dr. Elaina Garnett EGFR-AF [place] 30 mL/min/1.73m2 Critically low >=60 [facility] Comment on above: Performed By: #### C MP #### [facility] [address] [place] [address] Dr. Elaina Garnett EGFR-NON AF [place] 25 mL/min/1.73m2 Critically low >=60 [facility] Comment on above: Performed By: #### C MP #### [facility] [address] [address] [address] Elaina Garnett ELECTROLYTESon 09-14-2022 Anion gap [Moles/Vol] 13.1 mmol/L Normal [facility] Comment on above: Performed By: #### C MP #### [facility] [address] [address] [address] Elaina Garnett Chloride [Moles/Vol] 103 mmol/L Normal 98-107 [facility] Comment on above: Performed By: #### C MP #### [facility] [address] [address] [address] Elaina Garnett CO2 [Moles/Vol] 25.5 mmol/L Normal 21.0-32.0 [facility] Comment on above: Performed By: #### C MP #### [facility] [address] [address] [address] Elaina Garnett Potassium [Moles/Vol] 4.6 mmol/L Normal 3.5-5.1 [facility] Comment on above: Performed By: #### C MP #### [facility] [address] [address] [address] Elaina Garnett Sodium [Moles/Vol] 137 mmol/L Normal 136-145 [facility] Comment on above: Performed By: #### C MP #### [facility] [address] [address] [address] Elaina Garnett GLYCOHEMOGLOBIN A1Con 2021 ADA RECOMMENDATION SEE BELOW Normal [facility] Comment on above: Result Comment: ADA RECOMMENDED LIMIT 4.0 - 6.0 ADA THERAPEUTIC TARGET < 7.0 ACTION SUGGESTED > 7.0 Performed By: #### R SPLUS #### [facility] [address] [place] [address] Dr. Elaina Garnett Glucose [Mass/Vol] 209 mg/dL Normal [facility] Comment on above: Performed By: #### R SPLUS #### [facility] [address] [address] [address] Elaina Garnett HbA1c (Bld) [Mass fraction] 8.9 % Critically high 4.5-6.2 [facility] Comment on above: Performed By: #### R SPLUS #### [facility] [address] [address] [address] Elaina Garnett LIPID PROFILEon 09-14-2022 CHOL-HDL RATIO NORM SEE BELOW Normal [facility] Comment on above: Result Comment: 3.3 - 4.4 LOW RISK 4.4 - 7.1 AVERAGE RISK 7.1 - 11.0 MODERATE RISK >11.0 HIGH RISK Performed By: #### C MP #### [facility] [address] [address] [address] Elaina Garnett Cholesterol [Mass/Vol] 135 mg/dL Normal <=200 [facility] Comment on above: Performed By: #### C MP #### [facility] [address] [address] [address] Elaina Garnett Cholesterol in HDL [Mass/Vol] 39 mg/dL Critically low 40-60 [facility] Comment on above: Performed By: #### C MP #### [facility] [address] [address] [address] Elaina Garnett Cholesterol in LDL [Mass/Vol] 67.4 mg/dL Normal [facility] Comment on above: Performed By: #### C MP #### [facility] [address] [address] [address] Elaina Garnett Cholesterol.total/Ch olesterol in HDL [Mass ratio] 3.5 {ratio} Normal [facility] Comment on above: Performed By: #### C MP #### [facility] [address] [address] [address] Elaina Garnett HDL NORMAL > or = 60 mg/dl - LO W CARDIOVASCULAR RISK <40 mg/dl - HIGH CARDIOVASCULAR RISK Normal [facility] Comment on above: Performed By: #### C MP #### [facility] [address] [address] [address] Elaina Garnett LDL CALC NORMAL SEE BELOW Normal [facility] Comment on above: Result Comment: <100 mg/dl OPTIMAL 100 - 129 mg/dl NEAR OR ABOVE OPTIMAL 130 - 159 mg/dl BORDERLINE HIGH 160 - 189 mg/dl HIGH >190 mg/dl VERY HIGH Performed By: #### C MP #### [facility] [address] [place] [address] Dr. Elaina Garnett Triglyceride [Mass/Vol] 143 mg/dL Normal <=150 [facility] Comment on above: Performed By: #### C MP #### [facility] [address] [place] [address] Dr. Elaina Garnett VLDL CALC 28.6 mg/dL Normal [facility] Comment on above: Performed By: #### C MP #### [facility] [address] [place] [address] Dr. Elaina Garnett LIVER PROFILEon 09-14-2022 Albumin [Mass/Vol] 3.4 g/dL Normal 3.4-5.0 [facility] Comment on above: Performed By: #### C MP #### [facility] [address] [place] [address] Dr. Elaina Garnett Albumin/Globulin [Mass ratio] 0.8 {ratio} Normal [facility] Comment on above: Performed By: #### C MP #### [facility] [address] [place] [address] Dr. Elaina Garnett ALP [Catalytic activity/Vol] 122 U/L Critically high 46-116 [facility] Comment on above: Performed By: #### C MP #### [facility] [address] [place] [address] Dr. Elaina Garnett ALT [Catalytic activity/Vol] 17 U/L Normal 14-59 [facility] Comment on above: Performed By: #### C MP #### [facility] [address] [place] [address] Dr. Elaina Garnett AST [Catalytic activity/Vol] 15 U/L Normal 15-37 [facility] Comment on above: Performed By: #### C MP #### [facility] [address] [place] [address] Dr. Elaina Garnett BILI, CONJUGATED 0.1 mg/dL Normal 0.0-0.2 [facility] Comment on above: Performed By: #### C MP #### [facility] [address] [address] [address] Elaina Garnett Bilirubin [Mass/Vol] 0.6 mg/dL Normal 0.2-1.0 [facility] Comment on above: Performed By: #### C MP #### [facility] [address] [address] [address] Elaina Garnett Globulin (S) [Mass/Vol] 4.1 g/dL Normal [facility] Comment on above: Performed By: #### C MP #### [facility] [address] [address] [address] Elaina Garnett Protein [Mass/Vol] 7.5 g/dL Normal 6.4-8.2 [facility] Comment on above: Performed By: #### C MP #### [facility] [address] [address] [address] Elaina Garnett TSHon 09-14-2022 TSH 1.535 uIU/mL Normal 0.358-3.740 [facility] Comment on above: Performed By: #### C MP #### [facility] [address] [address] [address] Elaina Garnett MG MAMM SCREEN 3D PEDRO CADon 09-13-2022 MG MAMM SCREEN 3D PEDRO CAD Patient: VARSHA NIEVES Exam Date: 09/13/2022 : 1945 Gender:F Ordering : DR MADDISON MENDEZ Admission #: [id number] Family : Order #: [id number] CLICK HERE TO VIEW EXAM RADIOLOGY REPORT [...] RADIATION TREATMENTS Family Cancers None LOCATION: [facility] BREAST COMPOSITION: Scattered areas fibroglandular density. [...] M.D. on 09/14/2022 at 14:11 Normal [facility] RENAL FUNCTION PANELon 05-17 Albumin [Mass/Vol] 3.5 g/dL Normal 3.4-5.0 [facility] Comment on above: Performed By: #### C MP #### [facility] [address] [address] [address] Elaina Garnett Calcium [Mass/Vol] 8.8 mg/dL Normal 8.5-10.1 [facility] Comment on above: Performed By: #### C MP #### [facility] [address] [address] [address] Elaina Garnett Chloride [Moles/Vol] 106 mmol/L Normal 98-107 [facility] Comment on above: Performed By: #### C MP #### [facility] [address] [address] [address] Elaina Garnett CO2 [Moles/Vol] 29.1 mmol/L Normal 21.0-32.0 [facility] Comment on above: Performed By: #### C MP #### [facility] [address] [address] [address] Elaina Garnett Creatinine [Mass/Vol] 2.04 mg/dL Critically high 0.55-1.02 [facility] Comment on above: Performed By: #### C MP #### [facility] [address] [address] [address] Elaina Garnett EGFR-AF [place] 29 mL/min/1.73m2 Critically low >=60 [facility] Comment on above: Performed By: #### C MP #### [facility] [address] [address] [address] Elaina Garnett EGFR-NON AF [place] 24 mL/min/1.73m2 Critically low >=60 [facility] Comment on above: Performed By: #### C MP #### [facility] [address] [address] [address] Elaina Garnett Glucose [Mass/Vol] 46 mg/dL Critically low 74-106 [facility] Comment on above: Performed By: #### C MP #### [facility] [address] [address] [address] Elaina Garnett Phosphate [Mass/Vol] 4.2 mg/dL Normal 2.6-4.7 [facility] Comment on above: Performed By: #### C MP #### [facility] [address] [address] [address] Elaina Garnett Potassium [Moles/Vol] 4.6 mmol/L Normal 3.5-5.1 [facility] Comment on above: Performed By: #### C MP #### [facility] [address] [address] [address] Elaina Garnett Sodium [Moles/Vol] 142 mmol/L Normal 136-145 [facility] Comment on above: Performed By: #### C MP #### [facility] [address] [address] [address] Elaina Garnett Urea nitrogen [Mass/Vol] 65.0 mg/dL Critically high 7.0-18.0 [facility] Comment on above: Performed By: #### C MP #### [facility] [address] [address] [address] Elaina Garnett CBC panel Auto (Bld)on 05-03 Erythrocyte distribution width (RBC) [Ratio] 14.0 % 11.5 - 15.0 % [facility] Hematocrit (Bld) [Volume fraction] 43.3 % 36.0 - 46.0 % [facility] Hemoglobin (Bld) [Mass/Vol] 13.6 g/dL 11.5 - 15.5 g/dL [facility] MCH (RBC) [Entitic mass] 29.2 pg 26.0 - 34.0 pg [facility] MCHC (RBC) [Mass/Vol] 31.4 g/dL 30.5 - 36.0 g/dL [facility] MCV (RBC) [Entitic vol] 93.1 fL 80.0 - 100.0 fL [facility] Nucleated RBC (Bld) [#/Vol] 10*3/uL <0.01 k/uL [facility] Platelet mean volume (Bld) [Entitic vol] 9.8 fL 9.0 - 12.7 fL [facility] Platelets (Bld) [#/Vol] 247 10*3/uL 150 - 400 k/uL [facility] RBC (Bld) [#/Vol] 4.65 10*6/uL 3.90 - 5.2 0 m/uL [facility] WBC (Bld) [#/Vol] 8.50 10*3/uL 3.70 - 11. 00 k/uL [facility] HEPATIC FUNCTION PNLon 05-03 Albumin [Mass/Vol] 4.2 g/dL 3.9 - 4.9 g/dL [facility] ALP [Catalytic activity/Vol] 114 U/L 34 - 123 U/L [facility] ALT [Catalytic activity/Vol] 11 U/L 7 - 38 U/L [facility] AST [Catalytic activity/Vol] 17 U/L 13 - 35 U/L [facility] Bilirubin [Mass/Vol] 0.7 mg/dL 0.2 - 1 .3 mg/dL [facility] Bilirubin.conjugated [Mass/Vol] mg/dL <0.2 mg/dL [facility] Protein [Mass/Vol] 7.7 g/dL 6.3 - 8.0 g/dL [facility] LIPID PANEL BASICon 05-03-20 Cholesterol [Mass/Vol] 155 mg/dL <200 mg/dL [facility] Cholesterol in HDL [Mass/Vol] 39 mg/dL Low >39 mg/dL [facility] Cholesterol in LDL [Mass/Vol] 62 mg/dL <100 mg/dL [facility] Cholesterol in LDL/Cholesterol in HDL [Mass ratio] 1.59 {ratio} <2.54 [facility] Cholesterol in VLDL [Mass/Vol] 54 mg/dL High <30 mg/dL [facility] Cholesterol non HDL [Mass/Vol] 116 mg/dL <130 mg/dL [facility] Cholesterol.total/Ch olesterol in HDL [Mass ratio] 3.97 {ratio} <5.10 [facility] Fasting Time 0 hrs [facility] Triglyceride [Mass/Vol] 272 mg/dL High <150 mg/dL [facility] MAGNESIUM Don 05-03-2022 Magnesium [Mass/Vol] 2.5 mg/dL High 1.7 - 2 .3 mg/dL [facility] NT PRO BNPon 05-03-2022 Natriuretic peptide.B prohormone N-Terminal [Mass/Vol] 340 pg/mL <450 pg/mL [facility] TSH Don 05-03-2022 TSH Qn 1.590 m[IU]/L 0.270 - 4.200 mIU/L [facility] Vital Signs Date Time Vital Sign Value Performing Clinician Faci lity 02-13-2024 10:42-0400 Body height 157.5 cm Marylu Deitzer DO Work Phone: [facility] 02-13-2024 10:42-0400 Body weight 86.5 kg Marylu Deitzer DO Work Phone: [facility] 02-13-2024 10:42-0400 Diastolic blood pressure 81 mm[Hg] Marylu Deitzer DO Work Phone: [facility] 02-13-2024 10:42-0400 Heart rate 59 /min Marylu Deitzer DO Work Phone: [facility] 02-13-2024 10:42-0400 Systolic blood pressure 158 mm[Hg] Marylu Deitzer DO Work Phone: [facility] 06-13-2023 14:45-0400 Body height 162.6 cm Tiera Spangler GEAR SHAPER SET UP OPERATOR.HEAD NECK SURGEON Work Phone: [facility] 06-13-2023 14:45-0400 Body weight 88.45 kg Tiera Spangler APRN.HEAD NECK SURGEON Work Phone: [facility] 06-13-2023 14:45-0400 Diastolic blood pressure 83 mm[Hg] Tiera Onel GEAR SHAPER SET UP OPERATOR.HEAD NECK SURGEON Work Phone: [facility] 06-13-2023 14:45-0400 Heart rate 80 /min Tiera Onel GEAR SHAPER SET UP OPERATOR.HEAD NECK SURGEON Work Phone: [facility] 06-13-2023 14:45-0400 Systolic blood pressure 130 mm[Hg] Tiera Onel GEAR SHAPER SET UP OPERATOR.HEAD NECK SURGEON Work Phone: [facility] 01-10-2023 11:01-0500 Body height 162.6 cm Tiera Onel GEAR SHAPER SET UP OPERATOR.HEAD NECK SURGEON Work Phone: [facility] 01-10-2023 11:01-0500 Body weight 86.64 kg Tiera Onel GEAR SHAPER SET UP OPERATOR.HEAD NECK SURGEON Work Phone: [facility] 01-10-2023 11:01-0500 Diastolic blood pressure 81 mm[Hg] Tiera Onel GEAR SHAPER SET UP OPERATOR.HEAD NECK SURGEON Work Phone: [facility] 01-10-2023 11:01-0500 Heart rate 76 /min Tiera Onel GEAR SHAPER SET UP OPERATOR.HEAD NECK SURGEON Work Phone: [facility] 01-10-2023 11:01-0500 Systolic blood pressure 130 mm[Hg] Tiera Onel GEAR SHAPER SET UP OPERATOR.HEAD NECK SURGEON Work Phone: [facility] 05-03-2022 15:05-0400 Body height 162.6 cm Tiera Onel GEAR SHAPER SET UP OPERATOR.HEAD NECK SURGEON Work Phone: [facility] 05-03-2022 15:05-0400 Body weight 89.63 kg Tiera Onel GEAR SHAPER SET UP OPERATOR.HEAD NECK SURGEON Work Phone: [facility] 05-03-2022 15:05-0400 Diastolic blood pressure 83 mm[Hg] Tiera Onel GEAR SHAPER SET UP OPERATOR.HEAD NECK SURGEON Work Phone: [facility] 05-03-2022 15:05-0400 Heart rate 75 /min Tiera Onel GEAR SHAPER SET UP OPERATOR.HEAD NECK SURGEON Work Phone: [facility] 05-03-2022 15:05-0400 Systolic blood pressure 182 mm[Hg] Tiera Onel GEAR SHAPER SET UP OPERATOR.HEAD NECK SURGEON Work Phone: [facility] Encounters Encounter Date Encounter Type Care Provider Facility Start: 02-14-2024 Telephone encounter Marylu gregory DO Work Phone: [facility] Start: 02-13-2024 End: 02-14-2024 ambulatory TIERA SPANGLER Facility:[facility] Start: 02-13-2024 End: 02-13-2024 Patient encounter procedure Marylu Headley DO Work Phone: [facility] Comment on above: CKD (chronic kidney disease) stage 4, GFR 15-29 ml/min (HCC) (Primary Dx); Proteinuria, unspecified type; 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, with long-term current use of insulin (HCC); Benign hypertension with chronic kidney disease, stage IV ([facility]); Azotemia; Hyperkalemia Start: 02-08-2024 End: 02-08-2024 ambulatory BOSTON ABDI Not Available Start: 02-06-2024 Telephone encounter Marylu gregory DO Work Phone: [facility] Comment on above: Electronic Communica tion Results Start: 02-05-2024 End: 02-05-2024 ambulatory FLORENCE SKINNER Not Available Start: 02-01-2024 End: 02-01-2024 ambulatory BOSTON ABDI Not Available Start: 12-26-2023 End: 12-26-2023 ambulatory TIERA SPANGLER Facility:[facility] Start: 12-18-2023 End: 12-19-2023 ambulatory BOSTON ABDI Not Available Start: 11-28-2023 End: 11-28-2023 ambulatory MADDISON MENDEZ Not Available Start: 11-23-2023 End: 11-23-2023 ambulatory BOSTON ABDI Not Available Start: 11-15-2023 Telephone encounter Tiera Spangler GEAR SHAPER SET UP OPERATOR.HEAD NECK SURGEON Work Phone: [facility] Comment on above: Patient Update Start: 11-08-2023 Orders Only Tiera Mendez and GEAR SHAPER SET UP OPERATOR.HEAD NECK SURGEON Work Phone: [facility] Comment on above: Benign hypertension with chronic kidney disease, stage IV (HCC) (Primary Dx) Start: 11-06-2023 Telephone encounter Tiera Spangler GEAR SHAPER SET UP OPERATOR.HEAD NECK SURGEON Work Phone: [facility] Comment on above: Results Start: 11-06-2023 End: 11-06-2023 ambulatory FLROENCE SKINNER Not Available Start: 10-23-2023 Telephone encounter Tiera Spangler GEAR SHAPER SET UP OPERATOR.HEAD NECK SURGEON Work Phone: [facility] Comment on above: Results Start: 10-10-2023 Telephone encounter Tiera Spangler GEAR SHAPER SET UP OPERATOR.HEAD NECK SURGEON Work Phone: [facility] Comment on above: Critical Results Start: 10-09-2023 Telephone encounter Tiera Spangler GEAR SHAPER SET UP OPERATOR.HEAD NECK SURGEON Work Phone: [facility] [place] Comment on above: Lab Orders Start: 07-20-2023 Telephone encounter Tiera Spangler GEAR SHAPER SET UP OPERATOR.HEAD NECK SURGEON Work Phone: [facility] [place] Comment on above: Medication Question Start: 06-13-2023 End: 06-13-2023 ambulatory TIERA SPANGELR Facility:[facility] Start: 06-13-2023 End: 06-13-2023 Patient encounter procedure Tiera Spangler GEAR SHAPER SET UP OPERATOR.HEAD NECK SURGEON Work Phone: [facility] Comment on above: Benign hypertension with chronic kidney disease, stage IV (HCC) (Primary Dx); CKD (chronic kidney disease) stage 4, GFR 15-29 ml/min ([facility]); Proteinuria, unspecified type; Hyperkalemia; 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, unspecified whether 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 manager insulin use (HCC) Start: 04-26-[address] ISSA NORTON Facil ity:[facility] Start: 03-27-2023 End: 03-27-[address] JORGE RUIZ . Facility:[facility] Start: 03-25-2023 End: 03-26-[address] ISSA NORTON Facility:[facility] Start: 01-10-2023 End: 01-10-2023 Patient encounter procedure Tiera Spangler GEAR SHAPER SET UP OPERATOR.HEAD NECK SURGEON Work Phone: [facility] Comment on above: Benign hypertension with chronic kidney disease, stage IV (HCC) (Primary Dx); CKD (chronic kidney disease) stage 4, GFR 15-29 ml/min (HCC); Proteinuria, unspecified type; Hyperkalemia; 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, unspecified whether 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 manager insulin use (HCC); Vitamin D deficiency Start: [...] Comment on above: Results Start: 05-03-2022 End: 05-03-2022 Patient encounter procedure Tiera Spangler APRN.CNP Work Phone: [facility] Comment on above: Benign hypertension with chronic kidney disease, stage IV (HCC) (Primary Dx); CKD (chronic kidney disease) stage 4, GFR 15-29 ml/min (HCC); Proteinuria, unspecified type; Hyperkalemia; 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, unspecified whether 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 manager insulin use (HCC); Vitamin D deficiency; Chronic combined systolic and diastolic congestive heart failure (HCC) Plan of Treatment Date Care Activity Detail Author Start: 12-05-2031 Urine microalbumin profile DTaP,Tdap,Td Vaccine (3 - Td or Tdap) [facility] Start: 02-12-2025 Complete blood count Hemoglobin/[facility] Start: 02-12-2025 Creatinine measurement Serum Creatin ine [facility] Start: 05-07-2024 Hemoglobin A1c measurement HbA1C [facility] Start: 01-10-2024 Complete blood count Hemoglobin/[facility] Start: 01-10-2024 Creatinine measurement Serum Creatin ine [facility] Start: 01-10-2024 HEMOGLOBIN/HEMATOCRIT HEMOGLOBIN/HEM ATOCRIT [facility] Start: 01-10-2024 SERUM CREATININE SERUM CREATININE [facility] Start: 11-27-2023 Advance Directive Discussion Advance Directive Discussion [facility] Start: 11-27-2023 Depression Assessment Depression Ass essment [facility] Start: 11-16-2023 Hemoglobin A1c measurement HbA1C [facility] Start: 11-16-2023 Hemoglobin A1c/Hemoglobin.total in Blood HbA1C [facility] Start: 11-08-2023 End: 02-07-2024 Renal function 2000 panel - Serum or Plasma RENAL FUNCTION PANEL Lab Routine Benign hypertension with chronic kidney disease, stage IV (HCC) Expected: 11/08/2023, Expires: 02/07/2024 [facility] Work Phone: Comment on above: Expected: 11/08/2023 , Expires: 02/07/2024 Start: 10-14-2023 End: 12-14-2023 25-hydroxyvitamin D3 [Mass/volume] in Serum or Plasma VITAMIN D 25 HYDROXY Lab Routine Benign hypertension with chronic kidney disease, stage IV (HCC) CKD (chronic kidney disease) stage 4, GFR 15-29 ml/min (HCC) Proteinuria, unspecified type Hyperkalemia 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, unspecified whether 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 insulin use (HCC) Expected: 10/14/2023, Expires: 12/14/2023 [facility] Work Phone: Comment on above: Expected: 10/14/2023 , Expires: 12/14/2023 Start: 10-14-2023 End: 12-14-2023 ALBUMIN/CREAT RATIO RND UR ALBUMIN/CREAT RATIO RND UR Lab Routine Benign hypertension with chronic kidney disease, stage IV (HCC) CKD (chronic kidney disease) stage 4, GFR 15-29 ml/min (HCC) Proteinuria, unspecified type Hyperkalemia 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, unspecified whether 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 insulin use (HCC) Expected: 10/14/2023, Expires: 12/14/2023 [facility] Work Phone: Comment on above: Expected: 10/14/2023 , Expires: 12/14/2023 Start: 10-14-2023 End: 12-14-2023 CBC panel - Blood by Automated count CBC Lab Routine Benign hypertension with chronic kidney disease, stage IV (HCC) CKD (chronic kidney disease) stage 4, GFR 15-29 ml/min (HCC) Proteinuria, unspecified type Hyperkalemia 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, unspecified whether 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 insulin use (HCC) Expected: 10/14/2023, Expires: 12/14/2023 [facility] Work Phone: Comment on above: Expected: 10/14/2023 , Expires: 12/14/2023 Start: 10-14-2023 End: 12-14-2023 Parathyrin.intact [Mass/volume] in Serum or Plasma PTH INTACT BLD Lab Routine Benign hypertension with chronic kidney disease, stage IV (HCC) CKD (chronic kidney disease) stage 4, GFR 15-29 ml/min (HCC) Proteinuria, unspecified type Hyperkalemia 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, unspecified whether 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 manager insulin use (HCC) Expected: 10/14/2023, Expires: 12/14/2023 [facility] Work Phone: Comment on above: Expected: 10/14/2023 , Expires: 12/14/2023 Start: 10-14-2023 End: 12-14-2023 Renal function 2000 panel - Serum or Plasma RENAL FUNCTION PANEL Lab Routine Benign hypertension with chronic kidney disease, stage IV (HCC) CKD (chronic kidney disease) stage 4, GFR 15-29 ml/min (HCC) Proteinuria, unspecified type Hyperkalemia 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, unspecified whether 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 insulin use (HCC) Expected: 10/14/2023, Expires: 12/14/2023 [facility] Work Phone: Comment on above: Expected: 10/14/2023 , Expires: 12/14/2023 Start: 08-11-2023 Hemoglobin A1c/Hemoglobin.total in Blood HBA1C [facility] Start: 07-28-2023 Covid-19 Vaccine () Covid-19 Vaccine (2022-24 season) [facility] Start: 07-28-2023 Influenza vaccination [facility] Start: 05-03-2023 HEMOGLOBIN/HEMATOCRIT HEMOGLOBIN/HEM ATOCRIT [facility] Start: 05-03-2023 Hepatitis B surface antibody level LDL CHOLESTEROL [facility] Start: 05-03-2023 SERUM CREATININE SERUM CREATININE [facility] Start: 01-10-2023 End: 03-12-2023 25-hydroxyvitamin D3 [Mass/volume] in Serum or Plasma [facility] Work Phone: Comment on above: Expected: 01/10/2023 , Expires: 03/12/2023 Start: 01-10-2023 End: 03-12-2023 Creatinine [Mass/volume] in Urine collected for unspecified duration [facility] Work Phone: Comment on above: Expected: 01/10/2023 , Expires: 03/12/2023 Start: 01-10-2023 End: 03-12-2023 Protein [Mass/volume] in Urine [facility] Work Phone: Comment on above: Expected: 01/10/2023 , Expires: 03/12/2023 Start: 01-07-2023 COVID-19 VACCINE (5 - Moderna series) COVID-19 VACCINE (5 - Moderna series) [facility] Start: 12-21-2022 SERUM CREATININE SERUM CREATININE [facility] Start: 11-27-2022 ADVANCE DIRECTIVE DISCUSSION ADVANCE DIRECTIVE DISCUSSION [facility] Start: 11-27-2022 DEPRESSION ASSESSMENT DEPRESSION ASS ESSMENT [facility] Start: 07-28-2022 Influenza vaccination [facility] Start: 05-06-2022 COVID-19 VACCINE (4 - Booster for Moderna series) COVID-19 VACCINE (4 - Booster for Moderna series) [facility] Start: 12-29-2021 Hemoglobin A1c/Hemoglobin.total in Blood HBA1C [facility] Start: 11-27-2021 ADVANCE DIRECTIVE DISCUSSION ADVANCE DIRECTIVE DISCUSSION [facility] Start: 09-18-2021 Hemoglobin A1c/Hemoglobin.total in Blood HBA1C [facility] Start: 11-12-2020 Hepatitis B surface antibody level LDL CHOLESTEROL [facility] Start: 2008 BONE DENSITY BONE DENSITY [facility] Start: 2008 Bone Density Screening Bone Density Screening [facility] Start: 2008 Screening for osteoporosis Bone Density Screening [facility] Start: 2003 Hepatitis B Vaccine (1 of 3 - Risk 3-dose series) Hepatitis B Vaccine (1 of 3 - Risk 3-dose series) [facility] Start: 2003 RSV Vaccine (1 - 1-d ose 60+ series) RSV Vaccine (1 - 1-dose 60+ series) [facility] Start: 1993 SHINGRIX VACCINE (1 of 2) SHINGRIX VACCINE (1 of 2) [facility] Start: 1962 Urine microalbumin profile DTAP,TDAP,TD (1 - Tdap) [facility] Start: 1961 ANNUAL PCP TEAM SOLE INKER ZEUS DISEASE VISIT ANNUAL PCP TEAM CHRONIC DISEASE VISIT [facility] Start: 1961 BP CONTROLLED (<130/80) BP CONTROLLE D (<130/80) [facility] Start: 1955 Adult depression screening assessment DEPRESSION SCREENING [facility] Start: 1953 3 comp foot exam completed DIABETIC FOOT EXAM [facility] Start: 1953 Diabetic foot examination Diabetic Foot Exam [facility] Start: 1953 Glaucoma screening Dilated Retinal E xam [facility] Start: 1953 Hepatitis C antibody , confirmatory test DILATED RETINAL EXAM [facility] Start: 1949 Pneumococcal Vaccine : 65+ (1 - PCV) Pneumococcal Vaccine: 65+ (1 - PCV) [facility] Start: 1949 Pneumococcal Vaccine : 65+ (1 of 2 - PCV) Pneumococcal Vaccine: 65+ (1 of 2 - PCV) [facility] Start: 1949 PNEUMOCOCCAL: 65+ (1 - PCV) PNEUMOCOCCAL: 65+ (1 - PCV) [facility] Immunizations Immunization Date Immunization Notes Care Provider Harley varela 10-17-2022 influenza virus vacc ine, unspecified formulation Tiera Spangler APRN.HEAD NECK SURGEON Work Phone: [facility] Payers Date Payer Category Payer Private Health Insurance [facility] AARP SUPPLEMENT [id number] 2018-Present [phone] [address] [place] [address] Indemnity [id number] 2018 Private Health Insurance [facility] AARP SUPPLEMENT [id number] 2018-Present [phone] [address] [place] [address] Indemnity [id number] 2008 Medicare MEDICARE MEDICAR E A AND B [id number] 2008-Present [phone] [place] [address] Medicare [id number] 2008 Medicare MEDICARE MEDICAR E A AND B [id number] 2008-Present [phone] [address] [address] [place] [address] Medicare [id number] 1959 Medicare [id number] 1959 Unknown [id number] 1943 Unknown [id number] .593 1943 Unknown [id number] .593 1943 Unknown [id number] [id number] .593 1943 Unknown [id number] [id number] .593 1943 Unknown [id number] .593 1943 Unknown [id number] 2.16.840.1.371051.3.579.2 .593 1943 Unknown [id number] 2.16.840.1.191003.3.579.2 .593 1943 Unknown [id number] [id number] .1259 1943 Unknown [id number] [id number] .1259 1943 Unknown [id number] [id number] .1259 1943 Unknown [id number] [id number] .1259 1943 Unknown [id number] [id number] .1259 1943 Unknown [id number] [id number] .1259 1943 Unknown [id number] .1259 Social History Date Type Detail Facility Start: 11-12-2019 End: 01-10-2023 Tobacco smoking status NHIS Never smoked tobacco [facility] Start: 11-12-2019 End: 01-10-2023 Tobacco use and exposure Smokeless tobacco non-user [facility] Start: 05-03-2022 End: 02-13-2024 Alcohol intake Lifetime non-drinker (finding) [facility] Start: 11-12-2019 History SDOH Alcohol Frequency 1 [facility] Start: 1945 Sex Assigned At Not on file [facility] Start: 04-23-2022 End: 05-03-2022 Exposure to SARS-CoV-2 (event) Not sure [facility] Start: 11-12-2019 End: 11-03-2020 [facility] Work Phone: Start: 11-12-2019 End: 11-03-2020 Alcohol Use Disorder Identification Test - Consumption [AUDIT-C] [facility] Work Phone: How often to you hav e a drink containing alcohol? Never [facility] Work Phone: Average Number of Drinks Not on file [facility] Clinical Notes 05-03-2022 to 02-14-2024 Telephone Encounter - Tahir Phoenix MA - 02/14/2024 2:27 PM EDTTelephone Encounter - Marylu Headley DO - 02/14/2024 2:16 PM EDTMarylu Headley DO - 02/13/2024 10:40 AM EDT Note Date & Type Note Facility 02-14-2024 Miscellaneous Notes Placed lab order form for renal function panel in the outgoing mail as of 02/14/2024. Tahir Phoenix MA Called patient, kidney function is stable. Her compressed gases tester had wanted her to start sotagliflozin 200mg weekly in place of torsemide 20mg every other day. Reviewed with patient, we will need to monitor her kidney function with this switch. Plan to repeat labs in 2 weeks. Marylu Headley DO February 14, 2024, 2:18 PM documented in this encounter [facility] 02-13-2024 Note HNO ID: [id number] Author: MARYLU HEADLEY DO Service: ? Author Type: Physician Type: Progress Notes Filed: 02/13/2024 12:21 Note Text: HPI: Ms. Nieves is a 78 year old female who presents for a follow-up of proteinuric CKD stage IV with history of DM and HTN. She has history of heart failure monitored by cardiology locally for heart failure is on kerendia and entresto. She reports she will be getting an echo on 03/24. She recently saw her compressed gases tester, he wanted her to take sotagliflozin as opposed to torsemide. Recently treated with azithomycin for cellulitis by podiatry. She is now currently off of antibiotics and using topical neosporin, hs follow up next week. She has a foot ulcer which he is monitoring. She had lab work done which showed worsening of his BUN/Cr levels. (BUN of 108 Creatinine of 2.5mg/dL) We had called her, at the time she stated she felt well. She is on torsemide 20mg every other day. She reports no changes in her weight. She checks her home blood pressures. Yesterday was 145/67. Mostly run in the 130-150s. She is on entresto, coreg 25mg BID, kerendia 10mg daily. She is on potassium binder, lokelma. Tolerates this well. Baseline creatinine seems to be around 1.8-2.2. Appetite is good. Denies any chest pain or SOB. She has had swelling in her legs, states it has been better than they had been. Current Outpatient Medications Medication Sig torsemide (DEMADEX) 20 mg tablet Take 1 tablet by mouth every other day. insulin lispro-aabc (LYUMJEAngela KWIKPEN) 100 unit/mL insulin pen Inject subcutaneously three times daily before meals. Magnesium Oxide 500 mg tab Take 500 mg by mouth once daily. sodium zirconium cyclosilicate (LOKELMA) 10 gram oral packet Take 1 Packet by mouth once daily. Mix powder in 45 mL of water, stir and drink immediately. KERENDIA 10 mg tablet Take 10 mg by mouth once daily. montelukast (SINGULAIR) 10 mg tablet Take 10 mg by mouth once daily. sacubitril-valsartan (ENTRESTO) 97-103 mg tablet Take 1 tablet by mouth twice daily. Cholecalciferol, Vitamin D3, 50 mcg (2,000 unit) cap Take 1 capsule by mouth once daily. multivit,thx,calcium,iron,mins (MULTIVITAMIN AND MINERAL ORAL) Take by mouth once daily. CALCIUM-VITAMIN D3 ORAL Take by mouth. aspirin 81 mg chewable tablet Take 81 mg by mouth once daily. Vitamin E, dl, acetate, 1,000 unit capsule Take 1,000 Units by mouth once daily. insulin glargine,hum.rec.anlog (LANTUS SOLOSTAR U-100 INSULIN SUBCUTANEOUS) Inject subcutaneously. 34 units daily carvedilol (COREG) 25 mg tablet Take 25 mg by mouth twice daily with meals. Biotin 10,000 mcg cap Take by mouth once daily. No current facility-administered medications for this visit. Social history: reports that she has never smoked. She has never used smokeless tobacco. She reports that she does not drink alcohol and does not use drugs. ROS: no fever, no weight loss, no chest pain, no SOB, no nausea, no vomiting, no abdominal pain, no diarrhea, no constipation, no appetite changes, no frothy urine, no gross hematuria, no urinary symptoms, no lightheadedness, no dizziness, improved edema PHYSICAL EXAMINATION: BP 158/81 Pulse (!) 59 Ht 157.5 cm (5' 2 ) Wt 86.5 kg (190 lb 11.2 oz) BMI 34.88 kg/m? BP - standardized method Pulse 1 BP #1: 160/76 Pulse #1: 61 beats/min 2 BP #2 : 156/85 Pulse #2 : 59 beats/min 3 BP #3 : 157/82 Pulse #3 : 57 beats/min Average Average BP: 158/81 Average Pulse: 59 beats/min Orthostatic vitals Supine Sitting Standing BP cuff location BP cuff location: Left upper arm BP cuff size BP cuff size: large adult Comments for BP values First BP (right) First BP (left) General appearance: well appearing, in no acute distress, alert HEENT: NC/AT Lungs: normal respiratory effort, clear to auscultation bilaterally Heart: RRR, normal S1 and S2, murmur present Abdomen: soft, NT, ND, normoactive BS Back: no CVA tenderness Extremities: no edema Neuro: no asterixis, alert and oriented x 3 Labs: CBC: Lab Results Component Value Date WBC 7.54 01/10/2023 HB 12.5 01/10/2023 HCT 39.4 01/10/2023 PLT 256 01/10/2023 BMP: Lab Results Component Value Date NA 138 01/10/2023 K 4.9 01/10/2023 CHLOR 102 01/10/2023 GLUC 309 (H) 01/10/2023 CA 9.9 01/10/2023 RENAL FUNCTION Lab Results Component Value Date BUN 81 (H) 01/10/2023 BUN 57 (H) 05/03/2022 BUN 69 (H) 12/21/2021 CREAT 2.00 (H) 01/10/2023 CREAT 1.99 (H) 05/03/2022 CREAT 2.02 (H) 12/21/2021 EGFRAA 29 12/21/2021 EGFRAA 25 12/06/2021 EGFRAA 31 08/16/2021 EGFROTH 25 (L) 01/10/2023 EGFROTH 25 (L) 05/03/2022 EGFROTH 24 12/21/2021 ACID/BASE Lab Results Component Value Date CO2 24 01/10/2023 ALB 4.3 01/10/2023 ANION 12 01/10/2023 BONE/MINERAL METABOLISM Lab Results Component Value Date CA 9.9 01/10/2023 P 4.2 01/10/2023 VITD25 52.1 01/10/2023 PTH 65 01/10/2023 DIABETES Lab Results Madelia (more content not included)... [facility] 02-13-2024 History of Presen t illness Narrative HPI: Ms. Nieves is a 78 year old female who presents for a follow-up of proteinuric CKD stage IV with history of DM and HTN. She has history of heart failure monitored by cardiology locally for heart failure is on kerendia and entresto. She reports she will be getting an echo on 03/24. She recently saw her compressed gases tester, he wanted her to take sotagliflozin as opposed to torsemide. Recently treated with azithomycin for cellulitis by podiatry. She is now currently off of antibiotics and using topical neosporin, hs follow up next week. She has a foot ulcer which he is monitoring. She had lab work done which showed worsening of his BUN/Cr levels. (BUN of 108 Creatinine of 2.5mg/dL) We had called her, at the time she stated she felt well. She is on torsemide 20mg every other day. She reports no changes in her weight. She checks her home blood pressures. Yesterday was 145/67. Mostly run in the 130-150s. She is on entresto, coreg 25mg BID, kerendia 10mg daily. She is on potassium binder, lokelma. Tolerates this well. Baseline creatinine seems to be around 1.8-2.2. Appetite is good. Denies any chest pain or SOB. She has had swelling in her legs, states it has been better than they had been. Current Outpatient Medications Medication Sig torsemide (DEMADEX) 20 mg tablet Take 1 tablet by mouth every other day. insulin lispro-aabc (LYUMJEV KWIKPEN) 100 unit/mL insulin pen Inject subcutaneously three times daily before meals. Magnesium Oxide 500 mg tab Take 500 mg by mouth once daily. sodium zirconium cyclosilicate (LOKELMA) 10 gram oral packet Take 1 Packet by mouth once daily. Mix powder in 45 mL of water, stir and drink immediately. KERENDIA 10 mg tablet Take 10 mg by mouth once daily. montelukast (SINGULAIR) 10 mg tablet Take 10 mg by mouth once daily. sacubitril-valsartan (ENTRESTO) 97-103 mg tablet Take 1 tablet by mouth twice daily. Cholecalciferol, Vitamin D3, 50 mcg (2,000 unit) cap Take 1 capsule by mouth once daily. multivit,thx,calcium,iron,mins (MULTIVITAMIN AND MINERAL ORAL) Take by mouth once daily. CALCIUM-VITAMIN D3 ORAL Take by mouth. aspirin 81 mg chewable tablet Take 81 mg by mouth once daily. Vitamin E, dl, acetate, 1,000 unit capsule Take 1,000 Units by mouth once daily. insulin glargine,hum.rec.anlog (LANTUS SOLOSTAR U-100 INSULIN SUBCUTANEOUS) Inject subcutaneously. 34 units daily carvedilol (COREG) 25 mg tablet Take 25 mg by mouth twice daily with meals. Biotin 10,000 mcg cap Take by mouth once daily. No current facility-administered medications for this visit. Social history: reports that she has never smoked. She has never used smokeless tobacco. She reports that she does not drink alcohol and does not use drugs. ROS: no fever, no weight loss, no chest pain, no SOB, no nausea, no vomiting, no abdominal pain, no diarrhea, no constipation, no appetite changes, no frothy urine, no gross hematuria, no urinary symptoms, no lightheadedness, no dizziness, improved edema PHYSICAL EXAMINATION: BP 158/81 Pulse (!) 59 Ht 157.5 cm (5' 2 ) Wt 86.5 kg (190 lb 11.2 oz) BMI 34.88 kg/m BP - standardized method Pulse 1 BP #1: 160/76 Pulse #1: 61 beats/min 2 BP #2 : 156/85 Pulse #2 : 59 beats/min 3 BP #3 : 157/82 Pulse #3 : 57 beats/min Average Average BP: 158/81 Average Pulse: 59 beats/min Orthostatic vitals Supine Sitting Standing BP cuff location BP cuff location: Left upper arm BP cuff size BP cuff size: large adult Comments for BP values First BP (right) First BP (left) General appearance: well appearing, in no acute distress, alert HEENT: NC/AT Lungs: normal respiratory effort, clear to auscultation bilaterally Heart: RRR, normal S1 and S2, murmur present Abdomen: soft, NT, ND, normoactive BS Back: no CVA tenderness Extremities: no edema Neuro: no asterixis, alert and oriented x 3 Labs: CBC: Lab Results Component Value Date WBC 7.54 01/10/2023 HB 12.5 01/10/2023 HCT 39.4 01/10/2023 PLT 256 01/10/2023 BMP: Lab Results Component Value Date NA 138 01/10/2023 K 4.9 01/10/2023 CHLOR 102 01/10/2023 GLUC 309 (H) 01/10/2023 CA 9.9 01/10/2023 RENAL FUNCTION Lab Results Component Value Date BUN 81 (H) 01/10/2023 BUN 57 (H) 05/03/2022 BUN 69 (H) 12/21/2021 CREAT 2.00 (H) 01/10/2023 CREAT 1.99 (H) 05/03/2022 CREAT 2.02 (H) 12/21/2021 EGFRAA 29 12/21/2021 EGFRAA 25 12/06/2021 EGFRAA 31 08/16/2021 EGFROTH 25 (L) 01/10/2023 EGFROTH 25 (L) 05/03/2022 EGFROTH 24 12/21/2021 ACID/BASE Lab Results Component Value Date CO2 24 01/10/2023 ALB 4.3 01/10/2023 ANION 12 01/10/2023 BONE/MINERAL METABOLISM Lab Results Component Value Date CA 9.9 01/10/2023 P 4.2 01/10/2023 VITD25 52.1 01/10/2023 PTH 65 01/10/2023 DIABETES Lab Results Component Value Date HBA1C 9.5 (H) 10/01/2020 LIPIDS: Lab Results Component Value Date CHOL 155 05/03/2022 HDL 39 (L) 05/03/2022 LDL 62 05/03/2022 TG 272 (H) 05/03/2022 LDLHDL 1.59 05/03/2022 URINE: Urine POC Lab Results Component Value Date UGLUCPOC 100 11/12/2019 UBILIPOC Negative 11/12/2019 UKETONPOC Negative 11/12/2019 USGPOC 1.010 11/12/2019 UHBPOC Negative 11/12/2019 UPHPOC 5.5 11/12/2019 UPROPOC 100 (A) 11/12/2019 UUROPOC 0.2 11/12/2019 UNITPOC Negative 11/12/2019 UWBCPOC Negative 11/12/2019 UCOLPOC Yellow 11/12/2019 UCLARPOC Clear 11/12/2019 Latest Ref Rng 10/01/2020 04/20/2021 08/10/2021 01/10/2023 Creatinine, Ur Random (UCRR) 20.0 - 300.0 mg/dL 32.1 33.0 20.9 24.9 Creatinine, Ur Random (UCRR) 32.6 33.2 Albumin, Urine Random mg/L 90.8 137.9 Albumin/Creat Ratio <30 mg/g 279 (H) 415 (H) Protein, Urine Random 0 - 20 mg/dL 15 26 (H) 24 (H) 8 Labs scanned: 02/05/2024 Na 138, K 4.6, Chloride 101, CO2 27.4, BUN 108, Creatinine 2.53mg/dL, calcium 9.1, Phos 4.6. Albumin 3.3, glucose 319 Vitamin D 47.7 WBC 9.3, Hgb 12.4, HCT 38.74, Platelet 243 Protein/cr ratio 1.21 ASSESSMENT/PLAN: Ms. Nieves is a 78 year old female who presents for a follow-up of proteinuric CKD stage IV with history of DM and HTN. She has history of heart failure monitored by cardiology locally for heart failure is on kerendia and entresto 1) CKD stage IV, fluctuating levels with history of heart failure, proteinuric with history of DM and HTN, will need to update lab work - reviewed labs and discussed PAN HELPER with patient, she reports she would be interested in PAN HELPER if needed, will get CKD education 2.) azotemia - no uremic signs or symptoms - Discussed avoiding nephrotoxins such as NSAIDs and IV iodinated contrast dye. 3) Hypertension: on the higher side, home bps look better - monitor for her, she is on multiple cardiac medications and reports her compressed gases tester would like to get her off of torsemide to once weekly sotagliflozin - reviewed with patient, will update lab work and assess prior to change - did review that we would need repeat labs to monitor kidney function after starting SLGT2 inhibitor 4) Lipidemia: LDL is < 100 5) Ca/Phos: okay 6) PTH: okay 7) Heme: not anemic - checked locally as above 8)proteinuric CKD - she is on dmitri inhibition (with entresto) kerendia, possible switch from tosremide to sotagliflozin as per her compressed gases tester - monitor UA and UPCR 9) hyperkalemia - history of hyperkalemia - is on lokelma as K binder I spent a total of 40 minutes on the date of the service which included preparing to see the patient, kmgg-ie-pytw patient care, completing clinical documentation, obtaining and/or reviewing separately obtained history, performing a medically appropriate examination, counseling and educating the patient/family/caregiver, and ordering medications, tests, or procedures. Follow up in 3 months, sooner prn. Marylu Headley DO documented in this encounter [facility] 02-06-2024 Miscellaneous Notes Noted. Marylu Headley DO February 06, 2024, 12:40 PM Patient calling back Read message below Voiced understanding She feels great Will wait until next week/ will get lab work while at [facility]/Evie Transferred to scheduling to make lab appointment Called, unable to reach patient, I called 's cell - he is not with patient, she is at home, but their home number is not working as the cable is out. He will have patient call us back to let us know how she is feeling. Noted lab work done yesterday showed a rise in her BUN to 108 and creatinine to 2.5mg/dL She has an office visit me next week, we will need to recheck levels then, if feeling unwell, recommend ER visit Marylu Headley DO February 06, 2024, 10:31 AM documented in this encounter [facility] 02-06-2024 Miscellaneous Notes Received lab results from [facility]. Placed in provider mailbox for review. Viola Vidal MA documented in this encounter [facility] 12-26-2023 Note HNO ID: [id number] Author: TIERA SPANGLER APRN.HEAD NECK SURGEON Service: ? Author Type: Nurse Practitioner Type: [...] labs DM-last A1C 8.9. She follows in [place], [place]. Continue endo follow up Plan No changes Labs prior to next follow up Has follow up in [address] Headley. Will keep appt and see me in 6 months Tiera Spangler APRN.[facility] 11-15-2023 Miscellaneous Notes Contacted patient to advise her of the message below from Tiera Spangler APRN, CNP. She agreed with plan as stated below and will mostly likely get it done today. Please remind patient she is due for nonfasting labs at [facility]. I sent order last week. EFE Mckeon documented in this encounter [facility] 11-06-2023 Miscellaneous Notes Took a call from Erika who works at [facility]. Erika was calling with some critical lab values for Tiera Spangler. Took the following message over phone: Critical BUN of 117. Patient in question was verified using full name and date of . Candace Veliz November 06, 2023 4:24 PM documented in this encounter [facility] 10-23-2023 Miscellaneous Notes I called the Medical Records department at [facility]. My call went to [employer]. I did not leave a message. I will try to call back @ [phone], Medical Records press 2, then 2. Akshat Schaeffer ----- Message from Tiera Spangler APRN.CNP sent at 10/23/2023 8:57 AM EST ----- Please call [facility] and have repeat BUN and creatinine faxed over Tiera Spangler APRN.CNP documented in this encounter [facility] 10-10-2023 Miscellaneous Notes Called pt to review labs Results not fully available to me from outside lab Would like to review BUN 124 Any med changes? How is BP? No answer, LMTCB Tiera Spangler APRN.CNP Patient s identity has been confirmed by name and birthdate: Yes Call received from Lela at [facility] to report a critical value for BUN with a result of 124. Tiera Spangler APRN CNP was notified of the result at 2:46PM. Liban Zuñiga, RN documented in this encounter [facility] 10-09-2023 Miscellaneous Notes The requested document has been faxed to [phone] . Received a fax confirmation of OK on 10/09/23. Akshat Schaeffer Varsha Nieves is calling Tiera Spangler APRN.HEAD NECK SURGEON today needs labs ordered and faxed over to [facility]. F: [phone] No chief complaint on file. Patient has been identified by name and birthdate. Duration of symptoms: N/A Person calling: self Call patient at: at home [phone] (home) [phone] (cell) Was an appointment scheduled: No Closing statement: Results or non-symptom based questions: Thank you for calling [facility], your call will be returned within the next business day. Elva Beckford documented in this encounter [facility] 07-20-2023 Miscellaneous Notes That is fine Please [...] calling: self Call patient at: at home [phone] (home) [phone] (cell) Was an appointment scheduled: No Closing statement: Results or non-symptom based questions: Thank you for calling [facility], your call will be returned within the next business day. Elva Beckford documented in this encounter [facility] 06-13-2023 Note HNO ID: [id number] Author: Tiera Spangler APRN.HEAD NECK SURGEON Service: ? Author Type: Nurse Practitioner Type: [...] DM-uncontrolled on last lab. She follows in [place], [place]. Continue endo follow up Plan Have labs faxed over from [facility] F/U 4 months Tiera Spangler APRN.[facility] 06-13-2023 History of Presen t illness Narrative [...] DM-uncontrolled on last lab. She follows in [place], [place]. Continue endo follow up Plan Have labs faxed over from [facility] F/U 4 months Tiera Spangler APRN.HEAD NECK SURGEON documented in this encounter [facility] 01-10-2023 Miscellaneous Notes Addended by: TIERA SPANGLER on: 01/10/2023 11:34 AM Modules accepted: Orders documented in this encounter [facility] 01-10-2023 History of Presen t illness Narrative Pt is a 77 yo female here for follow up of CKD stage 4 in the setting of proteinuria (non-nephrotic range), DM and HTN. Last OV 04/2022. Kayexalate powder restarted after that visit. Cardiology has changed it to uzbhavy-lymqihi-lli will run out. She has no new [...] home as well as here-she sees cardiology [id number] and her BPs are controlled there. Hyperkalemia-now [...] DM-uncontrolled on last lab. She follows in [place], [place]. Last A1C 8.5-continue endo follow up Heme-Hgb WNL Plan Labs Continue lokelma 10gm daily 30 day free coupon given to augment samples She will let me know if cardiology cannot sample-may need to go to specialty pharmacy F/U 4 months Tiera Spangler APRN.HEAD NECK SURGEON documented in this encounter [facility] 05-17-2022 Miscellaneous Notes Received a page from lab at [place] regarding critical lab results. Critical Glucose of [...] 2022, 1:16 PM documented in this encounter [facility] 05-04-2022 Miscellaneous Notes The requested document has been faxed to [phone]. Received a fax confirmation of [place] on [...] Tiera Spangler APRN.DORINA documented in this encounter [facility] 05-03-2022 History of Presen t illness Narrative [...] Appears stable. Has had entresto increased and Nathan started-update labs. HTN-well controlled at home-she sees cardiology [id number] and her BPs are controlled there. Ombcgswlqdpd-ihylsvfvydwb-ml longer on treatment. Didn't tolerate veltassa and avoiding lokelma given CHF-update labs Vitamin D deficiency-on supplement 4000U D 3-update labs DM-uncontrolled on last lab. She follows in [place], [place]. Last A1C 8.9-continue endo follow up Plan Labs Cardiology has sent lab request for add ons Will have faxed to Dr Norton [phone] F/U 4 months Tiera Spangler APRN.HEAD NECK SURGEON documented in this encounter [facility] Evaluation note Diagnosis Benign hypertension with chronic kidney disease, stage IV (HCC)- Primary Benign hypertensive kidney disease with chronic kidney disease stage I through stage IV, or unspecified CKD (chronic kidney disease) stage 4, GFR 15-29 ml/min (HCC) Chronic kidney disease, Stage IV (severe) Proteinuria, unspecified type Hyperkalemia Hyperpotassemia 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, unspecified whether 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 insulin use (HCC) Vitamin D deficiency Unspecified vitamin D deficiency Chronic combined systolic and diastolic congestive heart failure (HCC) Chronic combined systolic and diastolic heart failure [facility] Benign hypertension with chronic kidney disease, stage IV (HCC)- Primary Benign hypertensive kidney disease with chronic kidney disease stage I through stage IV, or unspecified CKD (chronic kidney disease) stage 4, GFR 15-29 ml/min (HCC) Chronic kidney disease, Stage IV (severe) Proteinuria, unspecified type Hyperkalemia Hyperpotassemia 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, unspecified whether 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 manager insulin use (HCC) Vitamin D deficiency Unspecified vitamin D deficiency [facility] Benign hypertension with chronic kidney disease, stage IV (HCC)- Primary Benign hypertensive kidney disease with chronic kidney disease stage I through stage IV, or unspecified CKD (chronic kidney disease) stage 4, GFR 15-29 ml/min (HCC) Chronic kidney disease, Stage IV (severe) Proteinuria, unspecified type Hyperkalemia Hyperpotassemia 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, unspecified whether 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 manager insulin use ([facility]) [facility] Diagnosis Benign hypertension with chronic kidney disease, stage IV (HCC)- Primary Benign hypertensive kidney disease with chronic kidney disease stage I through stage IV, or unspecified [facility] [place] [facility] Diagnosis CKD (chronic kidney disease) stage 4, GFR 15-29 ml/min ([facility])- Primary Chronic kidney disease, Stage IV (severe) Proteinuria, unspecified type 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, with long-term current use of insulin (HCC) Benign hypertension with chronic kidney disease, stage IV (HCC) Benign hypertensive kidney disease with chronic kidney disease stage I through stage IV, or unspecified Azotemia Other abnormal blood chemistry Hyperkalemia Hyperpotassemia documented in this encounter [facility] Summary Purpose Family History No Family History [...] or prosecute any alcohol or drug abuse patient.[facility] the event this information is protected by the Federal Confidentiality of Alcohol and Drug Abuse Patient Records regulations: The Federal rules restrict any use of the information to criminally investigate or prosecute any alcohol or drug abuse patient.[facility] the event this information is protected by the Federal Confidentiality of Alcohol and Drug Abuse Patient Records regulations: The Federal rules restrict any use of the information to criminally investigate or prosecute any alcohol or drug abuse patient.[facility] the event this information is protected by the Federal Confidentiality of Alcohol and Drug Abuse Patient Records regulations: The Federal rules restrict any use of the information to criminally investigate or prosecute any alcohol or drug abuse patient.[facility] Center[facility] the event this information is protected by the Federal Confidentiality of Alcohol and Drug Abuse Patient Records regulations: The Federal rules restrict any use of the information to criminally investigate or prosecute any alcohol or drug abuse patient.[facility] CenterIn the event this information is protected by the Federal Confidentiality of Alcohol and Drug Abuse Patient Records regulations: The Federal rules restrict any use of the information to criminally investigate or prosecute any alcohol or drug abuse patient.[facility] Center[facility] the event this information is protected by the Federal Confidentiality of Alcohol and Drug Abuse Patient Records regulations: The Federal rules restrict any use of the information to criminally investigate or prosecute any alcohol or drug abuse patient.[facility] CenterIn the event this information is protected by the Federal Confidentiality of Alcohol and Drug Abuse Patient Records regulations: The Federal rules restrict any use of the information to criminally investigate or prosecute any alcohol or drug abuse patient.[facility] CenterIn the event this information is protected by the Federal Confidentiality of Alcohol and Drug Abuse Patient Records regulations: The Federal rules restrict any use of the information to criminally investigate or prosecute any alcohol or drug abuse patient.[facility] CenterIn the event this information is protected by the Federal Confidentiality of Alcohol and Drug Abuse Patient Records regulations: The Federal rules restrict any use of the information to criminally investigate or prosecute any alcohol or drug abuse patient.[facility] CenterIn the event this information is protected by the Federal Confidentiality of Alcohol and Drug Abuse Patient Records regulations: The Federal rules restrict any use of the information to criminally investigate or prosecute any alcohol or drug abuse patient.[facility] CenterIn the event this information is protected by the Federal Confidentiality of Alcohol and Drug Abuse Patient Records regulations: The Federal rules restrict any use of the information to criminally investigate or prosecute any alcohol or drug abuse patient.[facility] CenterIn the event this information is protected by the Federal Confidentiality of Alcohol and Drug Abuse Patient Records regulations: The Federal rules restrict any use of the information to criminally investigate or prosecute any alcohol or drug abuse patient.[facility] CenterIn the event this information is protected by the Federal Confidentiality of Alcohol and Drug Abuse Patient Records regulations: The Federal rules restrict any use of the information to criminally investigate or prosecute any alcohol or drug abuse patient.[facility] CenterIn the event this information is protected by the Federal Confidentiality of Alcohol and Drug Abuse Patient Records regulations: The Federal rules restrict any use of the information to criminally investigate or prosecute any alcohol or drug abuse patient.[facility] CenterIn the event this information is protected by the Federal Confidentiality of Alcohol and Drug Abuse Patient Records regulations: The Federal rules restrict any use of the information to criminally investigate or prosecute any alcohol or drug abuse patient.[facility] Reason for Visit (unrecogniz ed section and content) Reason Comments Follow Up Benign hypertension with chronic kidney disease, stage IV - 4 month f/u Reason Comments Results Reason Comments Follow Up Ckd Reason Comments Medication Question Reason Comments Lab Orders Reason Comments Critical Results Reason Comments Patient Update Reason Comments Electronic Communication Reason Comments Follow Up Care Teams (unrecognized sec tion and content) Kitchen Helper Relationship Specialty Start Date End Date Tiera Spangler APRN.HEAD NECK SURGEON [address] [place] [address] Primary Staff Physician Nephrology 12/23/21 Kitchen Helper Relationship Specialty Start Date End Date Tiera Spangler APRN.HEAD NECK SURGEON [address] [place] [address] Primary Staff Physician Nephrology 12/23/21 Kitchen Helper Relationship Specialty Start Date End Date Tiera Spangler, GEAR SHAPER SET UP OPERATOR.HEAD NECK SURGEON [address] [place] [address] Primary Staff Physician Nephrology 12/23/21 Kitchen Helper Relationship Specialty Start Date End Date Tiera pSangler, GEAR SHAPER SET UP OPERATOR.HEAD NECK SURGEON [address] [place] [address] Primary Staff Physician Nephrology 12/23/21 Kitchen Helper Relationship Specialty Start Date End Date Tiera Spangler, GEAR SHAPER SET UP OPERATOR.HEAD NECK SURGEON [address] [place] [address] Primary Staff Physician Nephrology 12/23/21 Kitchen Helper Relationship Specialty Start Date End Date Tiera Spangler, GEAR SHAPER SET UP OPERATOR.HEAD NECK SURGEON [address] [place] [address] Primary Staff Physician Nephrology 12/23/21 Kitchen Helper Relationship Specialty Start Date End Date Tiera Spangler GEAR SHAPER SET UP OPERATOR.HEAD NECK SURGEON [address] [place] [address] Primary Staff Physician Nephrology 12/23/21 Kitchen Helper Relationship Specialty Start Date End Date Tiera Spangler GEAR SHAPER SET UP OPERATOR.HEAD NECK SURGEON [address] [place] [address] Primary Staff Physician Nephrology 12/23/21 Kitchen Helper Relationship Specialty Start Date End Date Tiera Spangler, GEAR SHAPER SET UP OPERATOR.HEAD NECK SURGEON [address] [place] [address] Primary Staff Physician Nephrology 12/23/21 Kitchen Helper Relationship Specialty Start Date End Date Tiera Spangler APRN.DORINA [address] [place], [place] [id number] Primary Staff Physician Nephrology 12/23/21 INFORMATION SOURCE (unrecogn ized section and content) DATE CREATED AUTHOR [facility]/05/2023 [facility] DATE CREATED AUTHOR AUTHOR'S ORGANIZ ATION 02/10/2024 [facility] DATE CREATED AUTHOR AUTHOR'S ORGANIZ ATION 02/14/2024 [facility] DATE CREATED AUTHOR AUTHOR'S ORGANIZ ATION 02/15/2024 [facility] FOR RECORDS PERTAINING TO PATIENTS WHO ARE [...] BE BASED ON THE PRIMARY CLINICAL RECORDS. [facility] [employer] provides no warranty or guarantee of the accuracy or completeness of information in this document.
[2024-03-08 12:59] LABS: Albumin Level 3.4 g/dL (3.4-5.0); Anion Gap 13.7; BUN Creatinine Ratio 45.5; Calcium 9.8 mg/dL (8.5-10.1); Carbon Dioxide 26.8 mmol/L (21.0-32.0); Chloride 107 mmol/L (98-107); Estimated GFR (African America 29 (>=60); Estimated GFR (Non-African Ame 24 (>=60); Glucose 96 mg/dL (74-106); Phosphorus 4.8 mg/dL (2.6-4.7); Potassium 4.5 mmol/L (3.5-5.1); Sodium 143 mmol/L (136-145)
== END 2024-03-08 10:24 | disposition home or self-care (01) ==
LOC: LAB 10:24
PROVIDERS: PCP Internal Medicine
DX: N18.4 Chronic kidney disease, stage 4 (severe) (principal)
CPT/HCPCS: 36415; 80069

== ENCOUNTER 2024-05-02 14:10 | Outpatient (OUT) | payer MEDICARE, SELFPAY ==
[2024-05-02 15:22] LABS: Alanine Aminotransferase 17 U/L (14-59); Albumin Globulin Ratio 0.8; Albumin Level 3.4 g/dL (3.4-5.0); Alkaline Phosphatase 109 U/L (46-116); Anion Gap 16.3; Aspartate Amino Transferase 15 U/L (15-37); Bilirubin Direct 0.1 mg/dL (0.0-0.2); Bilirubin Total 0.6 mg/dL (0.2-1.0); Carbon Dioxide 24.3 mmol/L (21.0-32.0); Chloride 101 mmol/L (98-107); Estimated GFR (African America 22 (>=60); Estimated GFR (Non-African Ame 18 (>=60); Globulin 4.5 g/dL; Potassium 5.6 mmol/L (3.5-5.1); Sodium 136 mmol/L (136-145); Total Protein 7.9 g/dL (6.4-8.2)
== END 2024-05-02 14:11 | disposition home or self-care (01) ==
LOC: LAB 14:10
PROVIDERS: PCP Internal Medicine; Visit Provider Internal Medicine
DX: E87.5 Hyperkalemia (principal); Z79.899 Other long term (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
CPT/HCPCS: 36415; 80051; 80076; 82565; 84520

== ENCOUNTER 2024-06-10 12:32 | Outpatient (OUT) | payer MEDICARE, SELFPAY ==
--- NOTE | 2024-06-10 12:54 | MR_ITS ---
The [address] [address] Patient Name: ANAY NIEVES MRN: [facility]:[id number] date: 1945 Sex: F Assigned Patient Location: LAB Current Patient Location: Accession/Order Number: [id number] Exam Date: 06/10/2024 13:03 Report Date: 06/12/2024 14:10 At the request of: BOSTON ABDI Procedure: MR foot RT wo con IMAGES REVIEWED: MR foot RT wo con COMPARISON: None available. CLINICAL INDICATION: Osteomyelitis Of Right Foot, Type 2 Diabetes With Neuropath Technique: Multiplanar, multisequence MRI of the right foot without contrast. FINDINGS: Evaluation limited by the fact that this protocol does not include STIR imaging. Only sagittal PD fat sat images were provided with fat saturation artifact limiting evaluation of the toes. For example on sagittal PD fat sat image 7 there appears to be a fiduciary marker placed by the technologist adjacent to the plantar first toe, however the first phalanges are obscured by artifact. Apparent plantar first toe soft tissue ulcer judging by the fiduciary marker, this was not specified in the clinical history. On sagittal T1 imaging, there is no T1 signal loss involving the first phalanges to definitely suggest osteomyelitis, except possibly involving the distal most tuft of the first distal phalanx on sagittal T1 image 9 and coronal T1 image 23. No bone marrow edema in the first proximal phalanx on the sagittal PD fat sat images. First distal phalanx cannot be evaluated for bone marrow edema due to the reasons stated above. Mild dorsal forefoot and mild ankle subcutaneous edema. No discrete abscess seen. 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 MR/MR foot RT wo con IMPRESSION: Evaluation limited by the fact that this protocol does not include STIR imaging. Only sagittal PD fat sat images were provided with fat saturation artifact limiting evaluation of the toes. For example on sagittal PD fat sat image 7 there appears to be a fiduciary marker placed by the technologist adjacent to the plantar first toe, however the first phalanges are obscured by artifact. Apparent plantar first toe soft tissue ulcer. On sagittal T1 imaging, there is no T1 signal loss involving the first phalanges to definitely suggest osteomyelitis, except possibly involving the distal most tuft of the first distal phalanx on sagittal T1 image 9 and coronal T1 image 23. No bone marrow edema in the first proximal phalanx on the sagittal PD fat sat images. First distal phalanx cannot be evaluated for bone marrow edema due to the reasons stated above. Electronically authenticated by: CAROL REAL Date: 06/12/2024 14:10
[2024-06-10 13:09] LABS: Anion Gap 16.2; BUN Creatinine Ratio 42.9; Calcium 8.8 mg/dL (8.5-10.1); Carbon Dioxide 24.7 mmol/L (21.0-32.0); Chloride 103 mmol/L (98-107); Estimated GFR (African America 22 (>=60); Estimated GFR (Non-African Ame 18 (>=60); Glucose 323 mg/dL (74-106); Potassium 5.9 mmol/L (3.5-5.1); Sodium 138 mmol/L (136-145)
== END 2024-06-10 12:33 | disposition home or self-care (01) ==
LOC: LAB 12:33
PROVIDERS: PCP Internal Medicine
DX: E11.40 Type 2 diabetes mellitus with diabetic neuropathy, unspecified (principal); Z79.4 Long term (current) use of insulin; M86.171 Other acute osteomyelitis, right ankle and foot
CPT/HCPCS: 36415; 73718; 80048

== ENCOUNTER 2024-09-20 13:22 | Outpatient (OUT) | payer MEDICARE, SELFPAY ==
--- NOTE | 2024-09-20 13:25 | MM_ITS ---
Patient Name: ANAY NIEVES MR#: [id number] : 1945 Exam Date: 09/20/2024 Ordering Doctor: DR MADDISON MENDEZ RADIOLOGY REPORT PROCEDURE: MM TOMOSYNTHESIS SCREENING BI COMPARISON: MM TOMOSYNTHESIS SCREENING BI, 09/19/2023. MG MAMM SCREEN 3D PEDRO CAD, 09/13/2022. MG MAMM SCREEN 3D PEDRO CAD, 09/10/2021. MG MAMM PEDRO SCRN W CAD DIG, 10/23/2013. INDICATIONS: Screening Calculator Name NCI Breast Cancer Risk Assessment Tool 5 Year Breast Cancer Risk 3.00% Lifetime Breast Cancer Risk 4.20% Personal Breast Cancer No Personal Ovarian Cancer No Treatments HYSTERECTECTOMY AND PEDRO OOPHERECTOMY, RADIATION TREATMENTS Family Cancers None LOCATION: The [facility] BREAST COMPOSITION: There are scattered areas of fibroglandular density. FINDINGS: DIAGNOSTIC CATEGORY 2--BENIGN FINDING: RIGHT BREAST: No significant suspicious finding. Scattered benign-appearing calcifications are present. No significant change has occurred. LEFT BREAST: No significant suspicious finding. Scattered benign-appearing calcifications are present. No significant change has occurred. RECOMMENDATIONS: ROUTINE MAMMOGRAM AND CLINICAL EVALUATION IN 12 MONTHS. PLEASE NOTE: A NORMAL MAMMOGRAM DOES NOT EXCLUDE THE POSSIBILITY OF BREAST CANCER. A CLINICALLY SUSPICIOUS PALPABLE LUMP SHOULD BE BIOPSIED. Dictated by: Austin Benton M.D. on 09/22/2024 at 19:57 Approved by: Austin Benton M.D. on 09/22/2024 at 19:58
--- OUTSIDE RECORDS SUMMARY | 2024-09-20 13:27 | XMS_ITS | CCD ---
Author Organization [facility] [place] [facility] Care Team Providers Care Health Services Director Name Role Phone Crys WATCH INSPECTOR FINAL MOVEMENT.DORINA Tiera L Unavailable [phone] CIERRA, DR PARSONS Primary Care Unavailable JOHAN FRANCISCO Attending Unavailable NOLAN, JOHAN Consulting Unavailable JOHAN FRANCISCO Admitting Unavailable JUAN GARRETT Consulting Unavailable AKBAR ., DR SHAHRZAD Laurent Admitting Unavailable VALONE, DR PARSONS Primary Care Unavailable AKBAR ., DR SHAHRZAD Laurent Attending Unavailable AKBAR ., DR SHAHRZAD Laurent Consulting Unavailable PAY ., DR PATEL Consulting Unavailable AHDOOTJUAN Consulting Unavailable ELLEN AVALOS Consulting Unavailable VALONE, DR PARSONS Consulting Unavailable [...] Primary Care Unavailable JOHAN FRANCISCO Admitting Unavailable NOLAN, JOHAN Attending Unavailable Crys WATCH INSPECTOR FINAL MOVEMENT.DORINATiera Kayy Unavailable [phone] Crys WATCH INSPECTOR FINAL MOVEMENT.DORINA Tiera Kayy Unavailable [phone] JEFF Abdi Attending Provider [phone] JR Ken Norton Primary Care Provider Ken Norton Primary Care Unavailable Edgard Abdi Attending Unavailable Brown, Edgard A Admitting Unavailable KEN NORTON JR Primary Care Physician CRYS, TIERA L Referring Unavailable CRYS, TIERA L Referring Unavailable Dolce, Lasha R Attending Unavailable Dolce, Lasha R Attending Unavailable Dolce, Lasha R Attending Unavailable Brown, Edgard A Referring Unavailable Dolce, Lasha R Attending Unavailable CRYS, TIERA L Attending Unavailable CRYS, TIERA L Attending Unavailable MARYLU HEADLEY Attending Unavailable Ken Norton MD Primary Care Provider [phone] Petznick DO, Fartun Katja Unavailable REILLY ABDIOLAS A Attending Unavailable SHAWN STOUT Attending Unavailable BROWN, EDGARD A Attending Unavailable BROWN, EDGARD A Attending Unavailable PETZNICK, FARTUN M Attending Unavailable HOLLANDONEKEN Referring Unavailable BROWN, EDGARD A Attending Unavailable BROWN, EDGARD A Attending Unavailable BROWN, EDGARD A Attending Unavailable BROWN, EDGARD A Attending Unavailable BROWN, EDGARD A Attending Unavailable BROWN, EDGARD A Attending Unavailable BROWN, EDGARD A Attending Unavailable BROWN, EDGARD A Attending Unavailable BROWN, EDGARD A Attending Unavailable PETZNICK, FARTUN M Attending Unavailable VALKEN HENSLEY Referring Unavailable BROWN, EDGARD A Attending Unavailable BROWN, EDGARD A Attending Unavailable PETZNICK, FARTUN M Attending Unavailable BROWN, EDGARD A Attending Unavailable BROWN, EDGARD A Attending Unavailable BROWN, EDGARD A Attending Unavailable BROWN, EDGARD A Attending Unavailable PETZNICK, FARTUN M Attending Unavailable BROWN, EDGARD A Attending Unavailable BROWN, EDGARD A Attending Unavailable Allergies Allergy Classification Reported Allergen(s) Allergy Type Date of Onset Reaction(s) Facility (20 sources) Acetaminophen / Codeine; Translations: [ACETAMINOPHEN-CO DEINE] Drug Allergy 0 Other: See Comments [facility] (20 sources) benzonatate; Translations: [benzonatate] Drug Allergy 0 Vomiting [facility] (20 sources) Cephalexin; Translations: [cephalexin] Drug Allergy 0 Rash [facility] (20 sources) Ciprofloxacin; Translations: [CIPROFLOXACIN] Drug Allergy 9 Other: See Comments [facility] (20 sources) Clindamycin; Translations: [CLINDAMYCIN] Drug Allergy 9 Other: See Comments, Rash [facility] (11 sources) Penicillins; Translations: [penicillins] Drug Allergy 4 Other: See Comments [facility] (19 sources) Penicillins Drug Allergy 4 Other: See Comments [facility] (1 source) benzonatate Drug Allergy 0 [facility] (1 source) Cephalexin Drug Allergy 0 [facility] (1 source) Ciprofloxacin Drug Allergy [facility] (1 source) Clindamycin Drug Allergy [facility] (1 source) Penicillins Drug allergy (disorder) 4 [facility] (1 source) Tylenol-Codeine #3 Drug allergy (disorder) 0 [facility] (12 sources) Acetaminophen; Translations: [acetaminophen] Drug Allergy 3 [facility] (12 sources) Codeine; Translations: [codeine] Drug Allergy 3 [facility] (1 source) benzonatate Drug Allergy 4 [facility] [place] Rep[facility] (1 source) Cephalexin Drug Allergy 4 [facility] [place] Repository (1 source) Ciprofloxacin Drug Allergy 4 [facility] [place] Repository (1 source) Clindamycin Drug Allergy 4 [facility] [place] Repository (1 source) Penicillins Drug allergy (disorder) 4 [facility] [place] Repository (1 source) Cephalexin; Translations: [cephalexin monohydrate] Drug Allergy [facility] Rep[facility] (1 source) Cephalexin; Translations: [Keflex] Drug Allergy [facility] (5 sources) benzonatate Drug Allergy 3 [facility] (5 sources) Penicillins Drug Allergy 3 [facility] Medications Current Medications Medication Drug Class(es) Dates Sig (Normalized) Sig (Original) amLODIPine / olmesartan (4 sources) Dihydropyridine Calcium Channel Rachael, Angiotensin 2 Receptor Rachael Start: 01-20-2014 take 1 tablet by mouth once daily Jaden 1 TABLET, Oral, Daily, Refill(s) 0, High blood pressure Start Date: 01/20/14 Status: Ordered aspirin 81 mg oral tablet (20 sources) Platelet Aggregation Inhibitor, Nonsteroidal Anti-inflammatory Drug Start: 01-17-2014 take 1 tablet by mouth once daily aspirin 81 mg oral tablet 81 mg = 1 tab(s), Oral, Daily, Refills(s) 0 Start Date: 01/17/14 Status: Ordered aspirin 81 MG ch ewable tablet Chew 81 mg in the morning. Active Comment on above: Take 81 mg by mouth once daily. Bilberry extract (4 sources) Start: 01-17-2014 take 1 tablet by mouth once daily bilberry 1 TABLET, Oral, Daily, Refill(s) 0 Start Date: 01/17/14 Status: Ordered BILBERRY, VACCINIUM MYRTILLUS, PO (5 sources) BILBERRY, VACCIN IUM MYRTILLUS, PO Bilberry Active biotin 1 mg oral capsule (20 sources) Start: 05-03-2024 take 1 mg by mouth once daily Biotin Active 1 MG PO Daily May 03, 2024 12:00am Biotin 10,000 mc g cap Take by mouth once daily. Active Comment on above: Take by mouth once d aily. calcium carbonate 1250 mg / cholecalciferol 125 unt oral tablet (1 source) Vitamin D Start: 05-03-2024 take 1 tablet by mouth once daily Calcium Carbonate-Vitamin D3 Active 1 TAB PO Daily May 03, 2024 12:00am CALCIUM-VITAMIN D3 ORAL (20 sources) CALCIUM-VITAMIN D3 ORAL Take by mouth. Active CALCIUM-VITAMIN D3 ORAL Take by mouth. 0 Active Comment on above: Take by mouth. carvedilol 25 mg oral tablet (20 sources) alpha-Adrenergic Rachael, beta-Adrenergic Rachael Start: 01-17-20 14 take 1 tablet by mouth in the morning carvedilol (Coreg) 25 MG tablet Take 25 mg by mouth in the morning and 25 mg before bedtime. 04/07/2023 Active Comment on above: Take 25 mg by mouth twice daily with meals. cholecalciferol 0.05 mg oral capsule (20 sources) Vitamin D Start: 11-13-20 19 take 1 capsule by mouth once daily Cholecalciferol, Vitamin D3, 50 mcg (2,000 unit) cap Take 1 capsule by mouth once daily. 0 11/13/2019 Active Comment on above: Take 1 capsule by mo [facility] once daily. Continuous Glucose Wire Frame Dipper (FreeStyle Gualberto 3 Raymond) device (5 sources) Start: 05-20-20 Continuous Glucose Wire Frame Dipper (FreeStyle Gualberto 3 Raymond) device Indications: Type 2 diabetes mellitus with peripheral neuropathy (CMS/HCC) 1 Device See administration instructions 1 each 05/20/2024 Active Continuous Glucose Sensor (FreeStyle Gualberto 3 Sensor) misc (5 sources) Start: 05-20-20 Continuous Glucose Sensor (FreeStyle Gualberto 3 Sensor) [facility] [place] Indications: Type 2 diabetes mellitus with peripheral neuropathy (CMS/HCC) Inject 1 Device under the skin every 14 (fourteen) days 6 each 3 05/20/2024 Active 60 actuat exenatide 0.01 mg/actuat pen injector (4 sources) GLP-1 Receptor Agonist Start: 01-17-20 Byetta 10 mcg/0.04 mL Injection 5 microgram, SubCutaneous, BID, Refills(s) 0, High blood sugar Start Date: 01/17/14 Status: Ordered famotidine 20 mg oral tablet (1 source) Histamine-2 Receptor Antagonist Start: 05-03-20 take 1 tablet by mouth once daily at bedtime Famotidine (Pepcid) 20 mg tablet Active 20 MG PO Daily at bedtime May 03, 2024 12:00am Finerenone (1 source) Start: 05-03-20 take 1 tablet by mouth once daily Finerenone (Kerendia) 10 mg tablet Active 10 MG PO Daily May 03, 2024 12:00am finerenone (Kerendia) 10 MG tablet (5 sources) take 2 tablets by mouth once daily finerenone (Kerendia) 10 MG tablet Take 20 mg by mouth 1 (one) time each day at the same time. Active 3 ml insulin glargine 100 unt/ml pen injector (6 sources) Insulin Analog Start: 08-19-20 insulin glargine (Lantus SoloStar) 100 UNIT/ML pen Indications: 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, with long-term current use of insulin (CMS/HCC) Inject 15 Units under the skin in the morning. 15 mL 3 08/19/2024 Active Start: 05-03-2024 Insulin Glargi ne (Lantus Solostar U-100 Insulin) 100 unit/mL (3 mL) insulin pen Active 20 UNIT SUBCUT Every morning May 03, 2024 12:00am insulin glargine,hum.rec.anl og (LANTUS SOLOSTAR U-100 INSULIN SUBCUTANEOUS) (20 sources) inject 34 [IU] by subcutaneous injection once daily insulin glargine,hum.rec.anlog (LANTUS SOLOSTAR U-100 INSULIN SUBCUTANEOUS) Inject subcutaneously. 34 units daily Active inject 34 [IU] by leal bcutaneous injection once daily insulin glargine,hum.rec.anlog (LANTUS SOLOSTAR U-100 INSULIN SUBCUTANEOUS) Inject subcutaneously. 34 units daily 0 Active Comment on above: Inject subcutaneousl y. 34 units daily insulin isophane / insulin, regular, human (4 sources) Insulin Start: 01-17-2014 Humulin 70/30 32 unit(s), SubCutaneous, BIDAC, Refill(s) 0, High blood sugar Start Date: 01/17/14 Status: Ordered 3 ml insulin lispro-aabc 100 unt/ml pen injector (20 sources) Insulin Analog Start: 08-19-2024 insulin lispro-aabc (Lyumjev KwikPen) 100 UNIT/ML pen Indications: 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, with long-term current use of insulin ([facility]) 8 units shake, 10 units lunch, 16 units dinner plus correction 1:75 > 150 mg/dl (max daily 50 units) 45 mL 3 08/19/2024 Active insulin lispro-a abc (LYUMJEV KWIKPEN) 100 unit/mL insulin pen Inject subcutaneously three times daily before meals. Active insulin lispro-a abc (LYUMJEV KWIKPEN) 100 unit/mL insulin pen Inject subcutaneously three times daily before meals. 0 Active End: 05-03-2022 insulin lispro (HUMALOG KWIK PEN INSULIN) 100 unit/mL inpn Inject subcutaneously three times daily before meals. 0 05/03/2022 Discontinued Comment on above: Inject subcutaneousl y three times daily before meals. Insulin Lispro-Aabc (1 source) Start: 05-03-2024 Insulin Lispro-Aabc Active 1 sliding scale dose SUBCUT As Directed May 03, 2024 12:00am KERENDIA 10 mg tablet (20 sources) Start: 01-24-2022 take 1 tablet by mouth once daily KERENDIA 10 mg tablet Take 10 mg by mouth once daily. 01/24/2022 Active Start: 01-24-2022 take 1 tablet by chloe th once daily KERENDIA 10 mg tablet Take 10 mg by mouth once daily. 0 01/24/2022 Active Comment on above: Take 10 mg by mouth once daily. magnesium oxide 500 mg oral tablet (20 sources) Start: 4 take 500 mg by mouth once daily Magnesium Oxide Active 500 MG PO Daily May 03, 2024 12:00am Comment on above: Take 500 mg by mouth once daily. metFORMIN hydrochloride 1000 mg oral tablet (4 sources) Biguanide Start: 4 take 1 tablet by mouth once daily metformin 1000 mg Tab 1,000 mg = 1 tab(s), Oral, Daily, Refills(s) 0 Start Date: 01/17/14 Status: Ordered montelukast 10 mg oral tablet (20 sources) Leukotriene Receptor Antagonist Start: 2 take 1 tablet by mouth once daily montelukast (SINGULAIR) 10 mg tablet Take 10 mg by mouth once daily. 01/29/2022 Active Comment on above: Take 10 mg by mouth once daily. Multiple Vitamins Tab (4 sources) Start: 4 take 1 tablet by mouth once daily Multiple Vitamins Tab 1 tab(s), Oral, Daily, Refill(s) 0 Start Date: 01/17/14 Status: Ordered Multivit With Min-Folic Acid (1 source) Start: 4 take 1 tablet by mouth once daily Multivit With Min-Folic Acid Active 1 TAB PO Daily May 03, 2024 12:00am multivit,thx,calcium,i ankit,mins (MULTIVITAMIN AND MINERAL ORAL) (20 sources) multivit,thx,earl ciu m,iron,mins (MULTIVITAMIN AND MINERAL ORAL) Take by mouth once daily. Active multivit,thx,earl cium,iron,mins (MULTIVITAMIN AND MINERAL ORAL) Take by mouth once daily. 0 Active Comment on above: Take by mouth once d aily. rosuvastatin calcium 10 mg oral tablet (13 sources) HMG-CoA Reductase Inhibitor Start: 01-17-2014 End: 01-10-2023 take 1 tablet by mouth once daily Crestor 10 mg Tab 10 mg = 1 tab(s), Oral, Daily, Refills(s) 0 Start Date: 01/17/14 Status: Ordered Comment on above: Take 10 mg by mouth once daily. sacubitril 97 mg / valsartan 103 mg oral tablet (20 sources) Angiotensin 2 Receptor Rachael Start: 05-03-2022 take 1 tablet by mouth twice daily sacubitril-valsa rtan (ENTRESTO) 97-103 mg tablet Take 1 tablet by mouth twice daily. 05/03/2022 Active take 1 tablet by chloe th every twelve hours sacubitril-valsartan (Entresto) 97-103 MG tablet Take 1 tablet by mouth every 12 (twelve) hours. Active End: 05-03-2022 take 1 tablet by mouth twice daily sacubitril-valsartan (ENTRESTO) 49-51 mg tablet Take 1 tablet by mouth twice daily. 0 05/03/2022 Discontinued Comment on above: Take 1 tablet by chloe th twice daily. sodium zirconium cyclosilicate 5000 mg powder for oral suspension (20 sources) Start: 07-24-2024 sodium zirconium cyclosilicate (LOKELMA) 5 gram oral packet Take 3 Packets by mouth once daily. 270 Packet 3 07/24/2024 Active Start: 01-10-2023 End: 07-24-2024 take 1 dose by mouth once daily sodium zirconium cyclosilicate (LOKELMA) 10 gram oral packet Take 1 Packet by mouth once daily. Mix powder in 45 mL of water, stir and drink immediately. 30 Packet 11 06/18/2024 07/24/2024 Discontinued Comment on above: Take 1 Packet by chloe th once daily. Mix powder in 45 mL of water, stir and drink immediately. torsemide 20 mg oral tablet (20 sources) Loop Diuretic Start: 11-08-2023 take 1 tablet by mouth every other day torsemide (DEMADEX) 20 mg tablet Take 1 tablet by mouth every other day. 11/08/2023 Active Start: 10-11-2023 End: 11-08-2023 take [...] by chloe th every other day. vitamin B12 (4 sources) Vitamin B12 Start: 01-17-2014 take 1 tablet by mouth twice daily Vitamin B-12 1 TABLET, Oral, BID, Refills(s) 0, Prophylaxis Start Date: 01/17/14 Status: Ordered vitamin e 450 mg oral capsule (20 sources) Start: 05-03-2024 take 670 mg by mouth once daily Vitamin E Active 670 MG PO Daily May 03, 2024 12:00am Start: 01-17-2014 vitamin E 400 International_Unit, Oral, Daily, Refills(s) 0, Prophylaxis Start Date: 01/17/14 Status: Ordered take 1 capsule by mo ut in the morning alpha tocopherol (Vitamin E) 1000 units capsule Take 1,000 Units by mouth in the morning. Active take 1 capsule by mo uth once daily Vitamin E, dl, acetate, 1,000 unit capsule Take 1,000 Units by mouth once daily. Active Comment on above: Take 1,000 Units by mouth once daily. Completed/Discontinued Medications Medication Drug Class(es) Dates Sig (Normalized) Sig (Original) amLODIPine 5 mg oral tablet (1 source) Dihydropyridine Calcium Channel Rachael Start: 08-10-2021 End: 05-03-2022 amLODIPine (NORVASC) 5 mg tablet Pt akes three times a week -W-F 1 tablet 0 08/10/2021 05/03/2022 Discontinued Comment on above: Pt akes three times a week -- sodium polystyrene sulfonate 82157 mg powder for oral suspension (4 sources) Start: 12-22-2021 End: 01-10-2023 take 15 g by mouth three times [...] a week. on Monday, Monday and Monday Problems Active Problems Problem Classification Problem Date Documented Da te Episodic/Chronic Acquired foot deformities (8 sources) Acquired deformity of toe of right foot; Translations: [Acquired deformities of toe(s), unspecified, right foot] Onset: 04-02-2020 05-11-2023 Episodic Chronic kidney disease (9 sources) Chronic kidney disease, unspecified; Translations: [Chronic kidney disease, stage 4 (severe)] Onset: 11-12-2019 Chronic Chronic ulcer of skin (4 sources) Non-pressure chronic ulcer of other part of right foot with fat layer exposed; Translations: [Ulcer of other part of foot] 09-05-2024 Chronic Congestive heart failure; nonhypertensive (20 sources) Chronic combined systolic and diastolic heart failure; Translations: [Chronic combined systolic (congestive) and diastolic (congestive) heart failure] Onset: 11-12-2019 Chronic Diabetes mellitus with complications (20 sources) Type 2 diabetes mellitus; Translations: [Type 2 diabetes mellitus with diabetic chronic kidney disease] Onset: 12-19-2018 Resolved: 02-05-2024 Chronic Diabetes mellitus without complication (1 source) Type 2 diabetes mellitus without complications; Translations: [TYPE 2 DM WITHOUT COMPLICATIONS] Onset: 03-28-2023 Chronic Disorders of lipid metabolism (20 sources) Hyperlipidemia; Translations: [Other hyperlipidemia] Onset: 11-12-2019 11-12-2019 Chronic Essential hypertension (20 sources) Essential hypertension; Translations: [Essential (primary) hypertension] Onset: 11-12-2019 11-12-2019 Chronic Hypertension with complications and secondary hypertension (20 sources) Chronic kidney disease stage 4; Translations: [Hypertensive chronic kidney disease with stage 1 through stage 4 chronic kidney disease, or unspecified chronic kidney disease] Onset: 05-06-2019 Chronic Inflammation; infection of eye (except that caused by tuberculosis or sexually transmitteddisease) (2 sources) Unspecified conjunctivitis; Translations: [Unspecified acute conjunctivitis, bilateral] Onset: 03-28-2023 Episodic Menopausal disorders (5 sources) Atrophic vaginitis; Translations: [Postmenopausal atrophic vaginitis] Onset: 09-19-2016 05-11-2023 Chronic Nausea and vomiting (1 source) Vomiting, unspecified; Translations: [VOMITING UNSPECIFIED] Onset: 03-28-2023 Episodic Nutritional deficiencies (4 sources) Vitamin D deficiency; Translations: [Vitamin D deficiency, unspecified] Onset: 02-13-2024 Chronic Osteoporosis (5 sources) Osteoporosis; Translations: [Age-related osteoporosis without current pathological fracture] Onset: 04-02-2020 05-11-2023 Chronic Other aftercare (1 source) 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; Translations: [AUTO PARTS PROFESSIONAL CURRENT USE OF ASPIRIN] Onset: 03-28-2023 Episodic Other aftercare (5 sources) 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 (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; Translations: [OTH AUTO PARTS PROFESSIONAL CURRENT DRUG THERAPY] Onset: 09-14-2022 Episodic Other nutritional; endocrine; and metabolic disorders (5 sources) Severe obesity; Translations: [Class 2 severe obesity due to excess calories with serious comorbidity and body mass index (BMI) of 38.0 to 38.9 in adult] Onset: 04-02-2020 08-19-2024 Chronic Other upper respiratory infections (2 sources) Acute [...] Other Problems Problem Classification Problem Date Documented Date Episodic/Chronic Cancer of ovary (5 sources) History of malignant neoplasm of ovary; Translations: [Personal history of malignant neoplasm of ovary] Onset: 04-02-2020 05-11-2023 Episodic Fluid and electrolyte disorders (9 sources) Hyperkalemia; Translations: [Hyperkalemia] Onset: 09-18-2022 Episodic Genitourinary symptoms and ill-defined conditions (7 sources) Proteinuria; Translations: [Proteinuria, unspecified] Onset: 02-13-2024 Episodic Mycoses (6 sources) Onychomycosis due to dermatophyte ; Translations: [Tinea unguium] Onset: 04-02-2020 05-11-2023 Episodic Other aftercare (3 sources) 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; Translations: [SENIOR LIVING CURRENT USE OF INSULIN] Onset: 11-12-2019 Episodic Other aftercare (5 sources) Long-term current use of insulin; Translations: [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] Onset: 12-18-2018 Resolved: 11-06-2023 11-06-2023 Episodic Other connective tissue disease (5 sources) Pain in limb; Translations: [Pain in unspecified limb] Onset: 04-02-2020 05-11-2023 Episodic Other diseases of veins and lymphatics (5 sources) Peripheral venous insufficiency; Translations: [Venous insufficiency (chronic) (peripheral)] Onset: 05-21-2020 05-11-2023 Episodic Other injuries and conditions due to external causes (5 sources) At risk for falls ; Translations: [History of falling] Onset: 04-02-2020 05-11-2023 Episodic Other lower respiratory disease (1 source) Shortness of breath; Translations: [SHORTNESS OF BREATH] Onset: 11-29-2022 Episodic Other lower respiratory disease (1 source) Dyspnea, unspecified; Translations: [DYSPNEA UNSPECIFIED] Onset: 09-18-2022 Episodic Other screening for suspected conditions (not mental disorders or infectious disease) (11 sources) Other specified abnormal findings of blood chemistry; Translations: [Encounter for screening mammogram for malignant neoplasm of breast] Onset: 12-26-2017 Episodic Residual codes; unclassified (3 sources) Transient alteration of awareness; Translations: [TRANSIENT ALTERATION OF AWARENESS] Onset: 11-04-2022 Episodic Syncope (1 source) Syncope and collapse; Translations: [SYNCOPE AND COLLAPSE] Onset: 11-29-2022 Episodic Unclassified (1 source) COUGH, UNSPECIFIED; Translations: [COUGH, UNSPECIFIED] Onset: 03-25-2023 Results Test Name Value Interpretation Reference Range Facility Renal function 2000 panelon 08-15-2024 Albumin [Mass/Vol] 4.1 g/dL Normal 3.9-4.9 [facility] Comment on above: Order Comment: Speci men Type: BLOOD SPECIMENOrdering Facility: [facility] Address: [address] [place] [address] Performed By: #### 2 4362-6 ####[facility] LABCLIA [id number] [place] [address] Anion gap [Moles/Vol] 13 mmol/L Normal 8-15 [facility] Comment on above: Order Comment: Speci men Type: BLOOD SPECIMENOrdering Facility: [facility] Address: [address] [place] [address] Performed By: #### 2 4362-6 ####[facility] LABCLIA [id number] [place] [address] Calcium [Mass/Vol] 9.6 mg/dL Normal 8.5-10.2 [facility] Comment on above: Order Comment: Speci men Type: BLOOD SPECIMENOrdering Facility: [facility] Address: [address] [place] [address] Performed By: #### 2 4362-6 ####[facility] LABCLIA [id number] [place] [address] Chloride [Moles/Vol] 103 mmol/L Normal 98-107 [facility] Comment on above: Order Comment: Speci men Type: BLOOD SPECIMENOrdering Facility: [facility] Address: [address] [place] [address] Performed By: #### 2 4362-6 ####[facility] LABCLIA [id number] [place] [address] CO2 [Moles/Vol] 23 mmol/L Normal 22-30 [facility] Comment on above: Order Comment: Speci men Type: BLOOD SPECIMENOrdering Facility: [facility] Address: [address] [place] [address] Performed By: #### 2 4362-6 ####[facility] LABCLIA [id number] [place] [address] Creatinine [Mass/Vol] 2.12 mg/dL High 0.58-0.96 [facility] Comment on above: Order Comment: Earline porras Type: BLOOD SPECIMENOrdering Facility: [facility] Address: [address] [place], [place] [id number] Performed By: #### 2 4362-6 ####[facility] LABCLIA [id number] [place] [address] Creatinine and Glomerular filtration rate.predicted panel (S/P/Bld) 23 mL/min/1.73m??? Low >=60 [facility] Comment on above: Order Comment: Earline porras Type: BLOOD SPECIMENOrdering Facility: [facility] Address: [address] [place] [address] Result Comment: Malini mated Glomerular Filtration Rate [...] actual GFR. Performed By: #### 2 4362-6 ####[facility] LABCLIA [id number] [place] [address] Glucose [Mass/Vol] 260 mg/dL High 74-99 [facility] Comment on above: Order Comment: Earline porras Type: BLOOD SPECIMENOrdering Facility: [facility] Address: [address] [place], [place] [address] Result Comment: The [place] Diabetes Association (ADA) provides guidance for cutoff [...] Standards of Medical Care in Diabetes 2016, [place] [employer]. Diabetes Care. 2016.39(Suppl 1). Performed By: #### 2 4362-6 ####[facility] LABCLIA [id number] [place] [address] Phosphate [Mass/Vol] 4.3 mg/dL Normal 2.7-4.8 [facility] Comment on above: Order Comment: Speci men Type: BLOOD SPECIMENOrdering Facility: [facility] Address: [address] [place] [address] Performed By: #### 2 4362-6 ####[facility] LABCLIA [id number] [place] [address] Potassium [Moles/Vol] 5.0 mmol/L Normal 3.7-5.1 [facility] Comment on above: Order Comment: Speci men Type: BLOOD SPECIMENOrdering Facility: [facility] Address: [address] [place] [address] Performed By: #### 2 4362-6 ####[facility] LABCLIA [id number] [place] [address] Sodium [Moles/Vol] 139 mmol/L Normal 136-144 [facility] Comment on above: Order Comment: Speci men Type: BLOOD SPECIMENOrdering Facility: [facility] Address: [address] [place] [address] Performed By: #### 2 4362-6 ####[facility] LABCLIA [id number] [place] [address] Urea nitrogen [Mass/Vol] 76 mg/dL High 7-21 [facility] Comment on above: Order Comment: Speci men Type: BLOOD SPECIMENOrdering Facility: [facility] Address: [address] [place] [address] Performed By: #### 2 4362-6 ####[facility] LABCLIA [id number] [place] [address] Thalia 08-02-2024 CNPN Telephone (MIDWVV) VARSHA CHAUDHRY ([id number]) 1945 F Date Time Provider Department 08/02/24 TIERA SPANGLER During your visit today, we recorded the following information about you: Katt Avalos OCCA 08/02/2024 11:03 AM Signed Called and spoke to Pt in regards to below message. Pt understood and will repeat labs. EFE Schulte Please call patient Her potassium is better on the increased lokelma of 15gm daily Scr is a bit above baseline at 2.3 Please have her repeat the labs nonfasting in 1-2 weeks in [place], orders are in Tiera Spangler APRN.[facility] Allergies As of Date: 08/02/2024 Noted Allergy Reaction ACETAMINOPHEN-CODEIN E 11/27/1999 14 - Other: See Comments BENZONATATE 11/27/1999 11 - Vomiting CEPHALEXIN 11/27/1999 2 - Rash CIPROFLOXACIN 11/12/2019 14 - Other: See Comments CLINDAMYCIN 11/12/2019 14 - Other: See Comments PENICILLINS 11/07/2014 14 - Other: See Comments Date Reviewed: 07/23/2024 Reviewed by: Katt Avalos OCCA - Fully Assessed Reason for Visit: Results [95] Prescriptions as of 08/02/2024 - sodium zirconium cyclosilicate (LOKELMA) 5 gram oral packet Take 3 Packets by mouth once daily. - torsemide (DEMADEX) 20 mg tablet Take 1 tablet by mouth every other day. - insulin lispro-aabc (LYUMJEV KWIKPEN) 100 unit/mL insulin pen Inject subcutaneously three times daily before meals. - Magnesium Oxide 500 mg tab Take 500 mg by mouth once daily. - KERENDIA 10 mg tablet Take 10 mg by mouth once daily. - montelukast (SINGULAIR) 10 mg tablet Take 10 mg by mouth once daily. - sacubitril-valsartan (ENTRESTO) 97-103 mg tablet Take 1 tablet by mouth twice daily. - Cholecalciferol, Vitamin D3, 50 mcg (2,000 unit) cap Take 1 capsule by mouth once daily. - multivit,thx,calcium ,iron,mins (MULTIVITAMIN AND MINERAL ORAL) Take by mouth once daily. - CALCIUM-VITAMIN D3 ORAL Take by mouth. - aspirin 81 mg chewable tablet Take 81 mg by mouth once daily. - Vitamin E, dl, acetate, 1,000 unit capsule Take 1,000 Units by mouth once daily. - insulin glargine,hum.rec.anl og (LANTUS SOLOSTAR U-100 INSULIN SUBCUTANEOUS) Inject subcutaneously. 34 units daily - carvedilol (COREG) 25 mg tablet Take 25 mg by mouth twice daily with meals. - Biotin 10,000 mcg cap Take by mouth once daily. Problem List As Of Date 08/02/2024 Noted Resolved CKD (chronic kidney disease) stage 4, GFR 15-29*11/12/2019 Essential hypertension [I10] 11/12/2019 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 chronic k*11/12/2019 Other hyperlipidemia [E78.49] 11/12/2019 Chronic combined systolic and diastolic congest*11/12/2019 Encounter Status:Closed by KATT AVALOS on 08/02/24 [facility] DORINAN Telephone (MIDWVV) VARSHA CHAUDHRY ([id number]) 1945 F Date Time Provider Department 08/02/24 TIERA SPANGLER MIDWVV During your visit today, we recorded the following information about you: Tiera Spangler APRN.[facility] 08/02/2024 10:39 AM Signed Please call patient Her potassium is better on the increased lokelma of 15gm daily Scr is a bit above baseline at 2.3 Please have her repeat the labs nonfasting in 1-2 weeks in [place], orders are in Tiera Spangler APRN.SINTER PRESS OPERATOR Allergies As of Date: 08/02/2024 Noted Allergy Reaction ACETAMINOPHEN-CODEIN E 11/27/1999 14 - Other: See Comments BENZONATATE 11/27/1999 11 - Vomiting CEPHALEXIN 11/27/1999 2 - Rash CIPROFLOXACIN 11/12/2019 14 - Other: See Comments CLINDAMYCIN 11/12/2019 14 - Other: See Comments PENICILLINS 11/07/2014 14 - Other: See Comments Date Reviewed: 07/23/2024 Reviewed by: Katt Avalos OCCA - Fully Assessed Primary Visit Diagnosis:CKD (chronic kidney disease) stage 4, GFR 15-29 ml/min (HCC) [N18.4] Order(s):RENAL FUNCTION PANEL [SQRFP] Order #: [id number] FUTURE Prescriptions as of 08/02/2024 - sodium zirconium cyclosilicate (LOKELMA) 5 gram oral packet Take 3 Packets by mouth once daily. - torsemide (DEMADEX) 20 mg tablet Take 1 tablet by mouth every other day. - insulin lispro-aabc (LYUMJEV KWIKPEN) 100 unit/mL insulin pen Inject subcutaneously three times daily before meals. - Magnesium Oxide 500 mg tab Take 500 mg by mouth once daily. - KERENDIA 10 mg tablet Take 10 mg by mouth once daily. - montelukast (SINGULAIR) 10 mg tablet Take 10 mg by mouth once daily. - sacubitril-valsartan (ENTRESTO) 97-103 mg tablet Take 1 tablet by mouth twice daily. - Cholecalciferol, Vitamin D3, 50 mcg (2,000 unit) cap Take 1 capsule by mouth once daily. - multivit,thx,calcium ,iron,mins (MULTIVITAMIN AND MINERAL ORAL) Take by mouth once daily. - CALCIUM-VITAMIN D3 ORAL Take by mouth. - aspirin 81 mg chewable tablet Take 81 mg by mouth once daily. - Vitamin E, dl, acetate, 1,000 unit capsule Take 1,000 Units by mouth once daily. - insulin glargine,hum.rec.anl og (LANTUS SOLOSTAR U-100 INSULIN SUBCUTANEOUS) Inject subcutaneously. 34 units daily - carvedilol (COREG) 25 mg tablet Take 25 mg by mouth twice daily with meals. - Biotin 10,000 mcg cap Take by mouth once daily. Problem List As Of Date 08/02/2024 Noted Resolved CKD (chronic kidney disease) stage 4, GFR 15-29*11/12/2019 Essential hypertension [I10] 11/12/2019 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 chronic k*11/12/2019 Other hyperlipidemia [E78.49] 11/12/2019 Chronic combined systolic and diastolic congest*11/12/2019 Encounter Status:Closed by TIERA SPANGLER on 08/02/24 Normal [facility] Renal function 2000 panelon 08-01-2024 Albumin [Mass/Vol] 4.3 g/dL Normal 3.9-4.9 [facility] Comment on above: Order Comment: Speci men Type: BLOOD SPECIMENOrdering Facility: [facility] Address: [address] [place] [address] Performed By: #### 2 4362-6 ####[facility] LABCLIA [id number] [place] [address] Anion gap [Moles/Vol] 16 mmol/L High 8-15 [facility] Comment on above: Order Comment: Speci men Type: BLOOD SPECIMENOrdering Facility: [facility] Address: [address] [place] [address] Performed By: #### 2 4362-6 ####[facility] LABCLIA [id number] [place] [address] Calcium [Mass/Vol] 9.7 mg/dL Normal 8.5-10.2 [facility] Comment on above: Order Comment: Speci men Type: BLOOD SPECIMENOrdering Facility: [facility] Address: [address] [place] [address] Performed By: #### 2 4362-6 ####[facility] LABCLIA [id number] [place] [address] Chloride [Moles/Vol] 99 mmol/L Normal 98-107 [facility] Comment on above: Order Comment: Speci men Type: BLOOD SPECIMENOrdering Facility: [facility] Address: [address] [place], [place] [address] Performed By: #### 2 4362-6 ####[facility] LABCLIA [id number] [place] [address] CO2 [Moles/Vol] 27 mmol/L Normal 22-30 [facility] Comment on above: Order Comment: Speci men Type: BLOOD SPECIMENOrdering Facility: [facility] Address: [address] [place] [address] Performed By: #### 2 4362-6 ####[facility] LABCLIA [id number] [place] [address] Creatinine [Mass/Vol] 2.30 mg/dL High 0.58-0.96 [facility] Comment on above: Order Comment: Speci men Type: BLOOD SPECIMENOrdering Facility: [facility] Address: [address] [place] [address] Performed By: #### 2 4362-6 ####[facility] LABCLIA [id number] [place] [address] Creatinine and Glomerular filtration rate.predicted panel (S/P/Bld) 21 mL/min/1.73m??? Low >=60 [facility] Comment on above: Order Comment: Speci men Type: BLOOD SPECIMENOrdering Facility: [facility] Address: [address] [place] [address] Result Comment: Malini mated Glomerular Filtration Rate [...] actual GFR. Performed By: #### 2 4362-6 ####[facility] LABCLIA [id number] [place] [address] Glucose [Mass/Vol] 242 mg/dL High 74-99 [facility] Comment on above: Order Comment: Speci men Type: BLOOD SPECIMENOrdering Facility: [facility] Address: [address] [place] [address] Result Comment: The [place] Diabetes Association (ADA) provides guidance for cutoff [...] Standards of Medical Care in Diabetes 2016, [place] [employer]. Diabetes Care. 2016.39(Suppl 1). Performed By: #### 2 4362-6 ####[facility] LABCLIA [id number] [place] [address] Phosphate [Mass/Vol] 4.9 mg/dL High 2.7-4.8 [facility] Comment on above: Order Comment: Speci men Type: BLOOD SPECIMENOrdering Facility: [facility] Address: [address] [place] [address] Performed By: #### 2 4362-6 ####[facility] LABCLIA [id number] [place] [address] Potassium [Moles/Vol] 4.8 mmol/L Normal 3.7-5.1 [facility] Comment on above: Order Comment: Speci men Type: BLOOD SPECIMENOrdering Facility: [facility] Address: [address] [place], [place] [address] Performed By: #### 2 4362-6 ####[facility] LABCLIA [id number] [place] [address] Sodium [Moles/Vol] 142 mmol/L Normal 136-144 [facility] Comment on above: Order Comment: Speci men Type: BLOOD SPECIMENOrdering Facility: [facility] Address: [address] [place] [address] Performed By: #### 2 4362-6 ####[facility] LABCLIA [id number] [place] [address] Urea nitrogen [Mass/Vol] 111 mg/dL High 7-21 [facility] Comment on above: Order Comment: Speci men Type: BLOOD SPECIMENOrdering Facility: [facility] Address: [address] [place] [address] Performed By: #### 2 4362-6 ####[facility] LABCLIA [id number] [place] [address] Thalia 07-24-2024 OCTAVIO Telephone (MIDWVV) VARSHA CHAUDHRY ([id number]) 1945 F Date Time Provider Department 07/24/24 [facility] SPANGLER [facility] During your visit today, we recorded the following information about you: Tiera Spangler APRN.CNP 07/24/2024 11:04 AM Signed Please call pt re: labs Kidney function is stable Potassium is a little high at 5.4 Continue [facility]. I am going to increase it to 15gm daily I will order a new shipment to be sent Labs in [place] 1 week after she starts increase, nonfasting Tiera Spangler APRN.SINTER PRESS OPERATOR Katt Avalos OCCA 07/24/2024 1:52 PM Signed Called and spoke to Pt in regards to below message. Pt understood and will do as suggested. Please call pt re: labs Kidney function is stable Potassium is a little high at 5.4 Continue [facility]. I am going to increase it to 15gm daily I will order a new shipment to be sent Labs in [place] 1 week after she starts increase, nonfasting Tiera Spangler APRN.SINTER PRESS OPERATOR EFE Schulte Allergies As of Date: 07/24/2024 Noted Allergy Reaction ACETAMINOPHEN-CODEIN E 11/27/1999 14 - Other: See Comments BENZONATATE 11/27/1999 11 - Vomiting CEPHALEXIN 11/27/1999 2 - Rash CIPROFLOXACIN 11/12/2019 14 - Other: See Comments CLINDAMYCIN 11/12/2019 14 - Other: See Comments PENICILLINS 11/07/2014 14 - Other: See Comments Date Reviewed: 07/23/2024 Reviewed by: Katt Avalos OCCA - Fully Assessed Reason for Visit: Results [95] Primary Visit Diagnosis:Hyperkalem ia [E87.5] Order(s):sodium zirconium cyclosilicate (LOKELMA) 5 gram oral packetTake 3 Packets by mouth once daily.Disp: 270 PacketRfl: 3 RENAL FUNCTION PANEL [SQRFP] Order #: [id number] FUTURE Prescriptions as of 07/24/2024 - sodium zirconium cyclosilicate (LOKELMA) 5 gram oral packet Take 3 Packets by mouth once daily. - torsemide (DEMADEX) 20 mg tablet Take 1 tablet by mouth every other day. - insulin lispro-aabc (LYUMJEV KWIKPEN) 100 unit/mL insulin pen Inject subcutaneously three times daily before meals. - Magnesium Oxide 500 mg tab Take 500 mg by mouth once daily. - KERENDIA 10 mg tablet Take 10 mg by mouth once daily. - montelukast (SINGULAIR) 10 mg tablet Take 10 mg by mouth once daily. - sacubitril-valsartan (ENTRESTO) 97-103 mg tablet Take 1 tablet by mouth twice daily. - Cholecalciferol, Vitamin D3, 50 mcg (2,000 unit) cap Take 1 capsule by mouth once daily. - multivit,thx,calcium ,iron,mins (MULTIVITAMIN AND MINERAL ORAL) Take by mouth once daily. - CALCIUM-VITAMIN D3 ORAL Take by mouth. - aspirin 81 mg chewable tablet Take 81 mg by mouth once daily. - Vitamin E, dl, acetate, 1,000 unit capsule Take 1,000 Units by mouth once daily. - insulin glargine,hum.rec.anl og (LANTUS SOLOSTAR U-100 INSULIN SUBCUTANEOUS) Inject subcutaneously. 34 units daily - carvedilol (COREG) 25 mg tablet Take 25 mg by mouth twice daily with meals. - Biotin 10,000 mcg cap Take by mouth once daily. Problem List As Of Date 07/24/2024 Noted Resolved CKD (chronic kidney disease) stage 4, GFR 15-29*11/12/2019 Essential hypertension [I10] 11/12/2019 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 chronic k*11/12/2019 Other hyperlipidemia [E78.49] 11/12/2019 Chronic combined systolic and diastolic congest*11/12/2019 Prescriptions ordered this encounter Disp Refills Start End SODIUM ZIRCONIUM CYCLOSILICATE 5 GRA* 270 * 3 07/24/2024 Route: ORAL Sig: Take 3 Packets by mouth once daily. Medications Discontinued During This Encounter Prescriptions - sodium zirconium cyclosilicate (LOKELMA) 10 gram oral packet (Discontinued) Take 1 Packet by mouth once daily. Mix powder in 45 mL of water, stir and drink immediately. Encounter Status:Closed by TIERA SPANGLER on 07/24/24 Normal [facility] 25(OH)D3 SerPl-[facility] 2023 25-hydroxyvitamin D3 [Mass/Vol] 43.6 ng/mL Normal 31.0-80.0 [facility] Comment on above: Order Comment: Speci men Type: BLOOD SPECIMEN [facility] Address: [address] [place] [address] Result Comment: Clas sification of 25 [place] Vitamin D status: Deficiency/Insufficiency: < or = 30 ng/ml. Sufficiency/Optimal Levels: 31-80 ng/mL Toxicity: > 100 ng/mL. Test performed by chemiluminescent immunoassay. Performed By: #### 1 989-3 #### [facility] CLIA [id number] [address] [place] [address] [place] [address] [place] ALBUMIN/CREATININE RATIO, UR INEon 07-23-2024 Albumin DL <= 20 mg/L (U) [Mass/Vol] 184.1 mg/L [facility] Albumin/Creatinine (U) [Mass ratio] 1427 mg/g High NINF - 30 mg/g [facility] Comment on above: Adult Male and Femal e Nephrotic Criteria: <30 mg/g is considered normal to mildly increased 30-300 mg/g is considered moderately increased >300 mg/g is considered severely increased KDIGO. (2013). KDIGO 2012 Clinical Practice Guideline for the Evaluation and Management of Chronic Kidney Disease. Official Journal of the International Society of Nephrology, 3(1), 1-150. Albumin DL <= 20 mg/L (U) [Mass/Vol] 184.1 mg/L Normal [facility] Comment on above: Order Comment: Speci men Type: URINE SPECIMEN [facility] Address: [address] [place] [address] Performed By: #### 3 5674-1, UACR, 2887-6 #### [facility] CLIA [id number] [address] [place] [address] [place] Albumin/Creatinine (U) [Mass ratio] 1427 mg/g High <30 [facility] Comment on above: Order Comment: Speci men Type: URINE SPECIMEN [facility] Address: [address] [place] [address] Result Comment: Adul t Male and Female Nephrotic Criteria: <30 mg/g is considered normal to mildly increased 30-300 mg/g is considered moderately increased >300 mg/g is considered severely increased KDIGO. (2013). KDIGO 2012 Clinical Practice Guideline for the Evaluation and Management of Chronic Kidney Disease. Official Journal of the International Society of Nephrology, 3(1), 1-150. Performed By: #### 3 5674-1, UACR, 2887-6 #### [facility] CLIA [id number] [address] [place] [address] [place] CBC panel Auto (Bld)on 07-23 Erythrocyte distribution width (RBC) [Ratio] 13.9 % 11.5 - 15.0 % [facility] Hematocrit (Bld) [Volume fraction] 37.8 % 36.0 - 46.0 % [facility] Hemoglobin (Bld) [Mass/Vol] 12.3 g/dL 11.5 - 15.5 g/dL [facility] Interpretation and review of laboratory results Normal [facility] MCH (RBC) [Entitic mass] 30.3 pg 26.0 - 34.0 pg [facility] MCHC (RBC) [Mass/Vol] 32.5 g/dL 30.5 - 36.0 g/dL [facility] MCV (RBC) [Entitic vol] 93.1 fL 80.0 - 100.0 fL [facility] Nucleated RBC (Bld) [#/Vol] NINF [facility] Platelet mean volume (Bld) [Entitic vol] 9.6 fL 9.0 - 12.7 fL [facility] Platelets (Bld) [#/Vol] 226 10*3/uL [facility] RBC (Bld) [#/Vol] 4.06 10*6/uL 3.90 - 5.2 0 m/uL [facility] WBC (Bld) [#/Vol] 10.51 10*3/uL [facility] Erythrocyte distribution width (RBC) [Ratio] 13.9 % Normal 11.5-15.0 [facility] Comment on above: Order Comment: Speci men Type: BLOOD SPECIMEN [facility] Address: [address] [place] [address] Performed By: #### 5 5454-3 #### [facility] CLIA [id number] [address] [place] [address] [place] Hematocrit (Bld) [Volume fraction] 37.8 % Normal 36.0-46.0 [facility] Comment on above: Order Comment: Nestori men Type: BLOOD SPECIMEN [facility] Address: [address] [place] [address] Performed By: #### 5 5454-3 #### [facility] CLIA [id number] [address] [place] [address] [place] Hemoglobin (Bld) [Mass/Vol] 12.3 g/dL Normal 11.5-15.5 [facility] Comment on above: Order Comment: Nestori men Type: BLOOD SPECIMEN [facility] Address: [address] [place] [address] Performed By: #### 5 5454-3 #### [facility] CLIA [id number] [address] [place] [address] [place] MCH (RBC) [Entitic mass] 30.3 pg Normal 26.0-34.0 [facility] Comment on above: Order Comment: Speci men Type: BLOOD SPECIMEN [facility] Address: [address] [place] [address] Performed By: #### 5 5454-3 #### [facility] CLIA [id number] [address] [place] [address] [place] MCHC (RBC) [Mass/Vol] 32.5 g/dL Normal 30.5-36.0 [facility] Comment on above: Order Comment: Speci men Type: BLOOD SPECIMEN [facility] Address: [address] [place] [address] Performed By: #### 5 5454-3 #### [facility] CLIA [id number] [address] [place] [address] [place] MCV (RBC) [Entitic vol] 93.1 fL Normal 80.0-100.0 [facility] Comment on above: Order Comment: Speci men Type: BLOOD SPECIMEN [facility] Address: [address] [place] [address] Performed By: #### 5 5454-3 #### [facility] CLIA [id number] [address] [place] [address] [place] Nucleated RBC (Bld) [#/Vol] 10*3/uL Normal <0.01 [facility] Comment on above: Order Comment: Speci men Type: BLOOD SPECIMEN [facility] Address: [address] [place] [address] Performed By: #### 5 5454-3 #### [facility] CLIA [id number] [address] [place] [address] [place] Platelet mean volume (Bld) [Entitic vol] 9.6 fL Normal 9.0-12.7 [facility] Comment on above: Order Comment: Speci men Type: BLOOD SPECIMEN [facility] Address: [address] [place] [address] Performed By: #### 5 5454-3 #### [facility] CLIA [id number] [address] [place] [address] [facility] OF [place] Platelets (Bld) [#/Vol] 226 10*3/uL Normal 150-400 [facility] Comment on above: Order Comment: Speci men Type: BLOOD SPECIMEN [facility] Address: [address] [place] [address] Performed By: #### 5 5454-3 #### [facility] CLIA [id number] [address] [place] [address] [place] RBC (Bld) [#/Vol] 4.06 10*6/uL Normal 3.90-5.20 [facility] Comment on above: Order Comment: Speci men Type: BLOOD SPECIMEN [facility] Address: [address] [place] [address] Performed By: #### 5 5454-3 #### [facility] CLIA [id number] [address] [place] [address] [place] WBC (Bld) [#/Vol] 10.51 10*3/uL Normal 3.70-11.00 [facility] Comment on above: Order Comment: Speci men Type: BLOOD SPECIMEN [facility] Address: [address] [place] [address] Performed By: #### 5 5454-3 #### [facility] CLIA [id number] [address] [place] [address] OF TOM CNOVon 07-23-2024 [facility]OV [facility] LIZBETHVARSHA Boyd ([id number]) 1945 F Date Time Provider Department 07/23/24 11:30 AM TIERA SPANGLER [facility] During your visit today, we recorded the following information about you: Pulse Blood pressure Weight Height 75/minute 161/82 88.9 kg 1.575 m Tiera Spangler, WATCH INSPECTOR FINAL MOVEMENT.SINTER PRESS OPERATOR 07/23/2024 11:09 AM Signed Pt is an 79 yo female here for follow up CKD stage 4 in the setting of proteinuria, DM as well as HTN She was last seen 01/2024. Follows locally with PCP/cardiology for CHF-on bhanu and iris. Seen yesterday Baseline Scr 1.8-2.2. No complaints Home BPs 138/75 135/61 126/45 139/60 130/46 138/78 127/62 PAST MEDICAL HISTORY 1977: Diabetes mellitus (HCC) No date: HTN (hypertension) 1972: Uterine cancer (HCC) Comment: hysterectomy Creatinine Date Value Ref Range Status 02/13/2024 2.02 (H) 0.58 - 0.96 mg/dL Final 01/10/2023 2.00 (H) 0.58 - 0.96 mg/dL Final 05/03/2022 1.99 (H) 0.58 - 0.96 mg/dL Final Potassium Date Value Ref Range Status 02/13/2024 4.3 3.7 - 5.1 mmol/L Final 01/10/2023 4.9 3.7 - 5.1 mmol/L Final 05/03/2022 5.7 (H) 3.7 - 5.1 mmol/L Final Exam General: NAD, alert Lungs: CTA bilaterally Heart: RRR, + murmur Extremities: No edema BP - standardized method Pulse 1 BP #1: 162/84 Pulse #1: 76 beats/min 2 BP #2 : 165/84 Pulse #2 : 76 beats/min 3 BP #3 : 155/79 Pulse #3 : 75 beats/min Average Average BP: 161/82 Average Pulse: 75 beats/min Orthostatic vitals Supine Sitting Standing Standing BP : 145/70 Standing pulse : 71 BP cuff location BP cuff location: Left upper arm BP cuff size BP cuff size: large adult Comments for BP values First BP (right) First BP (left) Impression/plan CKD stage 4-proteinuric, in the setting of HTN and DM-Scr baseline ~ 1.8-2.2-has been stable. Update labs. She is on ARB and Kerendia. Is not using NSAIDs. HTN-well controlled on current regimen at home Volume stable. Hyperkalemia-now on lokelma per cardiology-update labs Vitamin D deficiency-on supplement 4000U D 3-follow labs DM-she follows in [place], [place]. Update A1C. Continue endo follow up Plan Update labs Follow up 4-6 months Tiera Spangler APRN.SINTER PRESS OPERATOR Allergies As of Date: 07/23/2024 Noted Allergy Reaction ACETAMINOPHEN-CODEIN E 11/27/1999 14 - Other: See Comments BENZONATATE 11/27/1999 11 - Vomiting CEPHALEXIN 11/27/1999 2 - Rash CIPROFLOXACIN 11/12/2019 14 - Other: See Comments CLINDAMYCIN 11/12/2019 14 - Other: See Comments PENICILLINS 11/07/2014 14 - Other: See Comments Date Reviewed: 07/23/2024 Reviewed by: Katt Avalos OCCA - Fully Assessed Reason for Visit: Follow Up [171] Cmt: CKD Primary Visit Diagnosis:CKD (chronic kidney disease) stage 4, GFR 15-29 ml/min ([facility]) [N18.4] Other Visit Diagnoses:Proteinuri a, unspecified type [R80.9] 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, with long-term current use of insulin ([facility]) [E11.22, N18.4, Z79.4] Benign hypertension with chronic kidney disease, stage IV ([facility]) [I12.9, N18.4] Hyperkalemia [E87.5] Vitamin D deficiency [E55.9] Order(s):COMPLETE BLOOD COUNT [SQCBC] Order #: [id number] FUTURE FERRITIN [SQFERR] Order #: [id number] FUTURE IRON AND TIBC [SQIRON] Order #: [id number] FUTURE ALBUMIN/CREATININE RATIO, URINE [SQUACR] Order #: [id number] FUTURE RENAL FUNCTION PANEL [SQRFP] Order #: [id number] FUTURE PTH INTACT [SQPTHI] Order #: [id number] FUTURE VITAMIN D 25 HYDROXY [SQVITD] Order #: [id number] FUTURE CREATININE RANDOM URINE [SQUCRR] Order #: [id number] FUTURE PROTEIN RANDOM URINE [SQUTPR] Order #: [id number] FUTURE HEMOGLOBIN A1C [YXMQG9T] Order #: [id number] FUTURE RENAL FUNCTION PANEL [SQRFP] Order #: [id number] FUTURE Prescriptions as of 07/23/2024 - sodium zirconium cyclosilicate (LOKELMA) 10 gram oral packet Take 1 Packet by mouth once daily. Mix powder in 45 mL of water, stir and drink immediately. - torsemide (DEMADEX) 20 mg tablet Take 1 tablet by mouth every other day. - insulin lispro-aabc (LYUMJEV KWIKPEN) 100 unit/mL insulin pen Inject subcutaneously three times daily before meals. - Magnesium Oxide 500 mg tab Take 500 mg by mouth once daily. - KERENDIA 10 mg tablet Take 10 mg by mouth once daily. - montelukast (SINGULAIR) 10 mg tablet Take 10 mg by mouth once daily. - sacubitril-valsartan (ENTRESTO) 97-103 mg tablet Take 1 tablet by mouth twice daily. - Cholecalciferol, Vitamin D3, 50 mcg (2,000 unit) cap Take 1 capsule by mouth once daily. - multivit,thx,calcium ,iron,mins (MULTIVITAMIN AND MINERAL ORAL) Take by mouth once daily. - CALCIUM-VITAMIN D3 ORAL Take by mouth. - aspirin 81 mg chewable tablet Take 81 mg by mouth once daily. - Vitamin E, dl, acetate, 1,000 unit capsule Take 1,000 Units by mouth once daily. - insulin glargine,hum.rec.anl og (LANTUS SOLOSTAR U-100 INSULIN (more content not included)... Normal [facility] Creat ?Tm Ur-mCncon 07-23-20 24 Creatinine (U) [Mass/Vol] 12.9 mg/dL Low 20.0-300.0 [facility] Comment on above: Order Comment: Speci men Type: URINE SPECIMEN Ordering Facility: [facility] Address: [address] [place] [address] [place] [address] Performed By: #### 3 5674-1, UACR, 2888-6 #### [facility] CLIA [id number] [address] [facility] [address] [address] [place] FERRITINon 07-23-2024 Ferritin [Mass/Vol] 153.8 ng/mL 14.7 - 2 05.1 ng/mL [facility] Ferritin SerPl-mCncon 2023 Ferritin [Mass/Vol] 153.8 ng/mL Normal 14.7-205.1 [facility] Comment on above: Order Comment: Earline porras Type: BLOOD SPECIMEN Ordering Facility: [facility] Address: [address] [place], [place] [address] Performed By: #### 5 0190-8, 67742-4, 2276-4 #### [facility] CLIA [id number] [address] [place] [address] [place] Ferritin [Mass/Vol]on 2023 Interpretation and review of laboratory results Normal [facility] HbA1c (Bld)on 07-23-2024 Average glucose Estimated from glycated hemoglobin (Bld) [Mass/Vol] 194 mg/dL [facility] Comment on above: eAG: (Estimated aver age glucose) is a calculated value from HgbA1c and is c s s representative of the average blood glucose level in the last 2-3 month period. HbA1c (Bld) [Mass fraction] 8.4 % High 4.3 - 5.6 % [facility] Comment on above: [place] Diabetes As sociation guidelines indicate that patients with HgbA1c in the range 5.7-6.4% are at increased risk for development of diabetes, and intervention by lifestyle modification may be beneficial. HgbA1c greater or equal to 6.5% is considered diagnostic of diabetes. Interpretation and review of laboratory results Abnormal [facility] Average glucose Estimated from glycated hemoglobin (Bld) [Mass/Vol] 194 mg/dL Normal [facility] Comment on above: Order Comment: Earline porras Type: BLOOD SPECIMEN Ordering Facility: [facility] Address: [address] [place] [address] Result Comment: eAG: (Estimated average glucose) is a calculated value from HgbA1c and is c s s representative of the average blood glucose level in the last 2-3 month period. Performed By: #### 5 5454-3 #### [facility] CLIA [id number] [address] [place] [address] [place] HbA1c (Bld) [Mass fraction] 8.4 % High 4.3-5.6 [facility] Comment on above: Order Comment: Earline men Type: BLOOD SPECIMEN Ordering Facility: [facility] Address: [address] [place] [address] Result Comment: [place] Diabetes Association guidelines indicate that patients with HgbA1c in the range 5.7-6.4% are at increased risk for development of diabetes, and intervention by lifestyle modification may be beneficial. HgbA1c greater or equal to 6.5% is considered diagnostic of diabetes. Performed By: #### 5 5454-3 #### [facility] CLIA [id number] [address] [place] [address] [place] [facility] 07-[facility]-2024 Interpretation and review of laboratory results Normal [facility] Iron [Mass/Vol] 75 ug/dL 41 - 186 ug/dL [facility] Iron binding capacity [Mass/Vol] 303 ug/dL 232 - 386 ug/dL [facility] Iron/TIBC [Molar ratio] 24.8 % 15.0 - 57.0 % [facility] Iron [Mass/Vol] 75 ug/dL Normal 41-186 [facility] Comment on above: Order Comment: Earline porras Type: BLOOD SPECIMEN Ordering Facility: [facility] Address: [address] [place] [address] Performed By: #### 5 0190-8, 29121-3, 2275-4 #### [facility] CLIA [id number] [address] [place] [address] [place] Iron binding capacity [Mass/Vol] 303 ug/dL Normal 232-386 [facility] Comment on above: Order Comment: Earline porras Type: BLOOD SPECIMEN Ordering Facility: [facility] Address: [address] [place] [address] Performed By: #### 5 0190-8, 86940-8, 2275-4 #### [facility] CLIA [id number] [address] [place] [address] [place] Iron/TIBC [Molar ratio] 24.8 % Normal 15.0-57.0 [facility] Comment on above: Order Comment: Speci men Type: BLOOD SPECIMEN Ordering Facility: [facility] Address: [address] [place] [address] Performed By: #### 5 0190-8, 32455-8, 227-4 #### [facility] CLIA [id number] [address] [place] [address] [place] Laboratory - Chemistry and C hemistry - challengeon 07-23-2024 Creatinine (U) [Mass/Vol] 12.9 mg/dL Low 20.0 - 300.0 mg/dL [facility] No Panel Informationon 07-23 Interpretation and review of laboratory results Abnormal [facility] PROTEIN RANDOM URINEon 07-23 Protein (U) [Mass/Vol] 31 mg/dL High 0 - 20 mg/dL [facility] PTH-Intact SerPl-ncon 06-28 Parathyrin.intact [Mass/Vol] 62 pg/mL Normal 15-65 [facility] Comment on above: Order Comment: Speci men Type: BLOOD SPECIMEN Ordering Facility: [facility] Address: [address] [place] [address] Performed By: #### 2 731-8 #### [facility] CLIA [id number] [address] [place] [address] [place] Prot Ur-mCncon 07-23-2024 Protein (U) [Mass/Vol] 31 mg/dL High 0-20 [facility] Comment on above: Order Comment: Speci men Type: URINE SPECIMEN Ordering Facility: [facility] Address: [address] [place] [address] Performed By: #### 3 5674-1, UACR, 2888-6 #### [facility] CLIA [id number] [address] [place] [address] [place] Renal function 2000 panelon 07-23-2024 Albumin [Mass/Vol] 4.1 g/dL 3.9 - 4.9 g/dL [facility] Anion gap [Moles/Vol] 14 mmol/L 8 - 15 mmol/L [facility] Calcium [Mass/Vol] 10.0 mg/dL 8.5 - 10. 2 mg/dL [facility] Chloride [Moles/Vol] 103 mmol/L 98 - 10 7 mmol/L [facility] CO2 [Moles/Vol] 25 mmol/L 22 - 30 mmol/L [facility] Creatinine [Mass/Vol] 1.88 mg/dL High 0.58 - 0.96 mg/dL [facility] GFR/1.73 sq M.predicted among non-blacks MDRD (S/P/Bld) [Vol rate/Area] 27 mL/min/{1.73_m2} Low - PINF [facility] Comment on above: Estimated Glomerular Filtration Rate (eGFR) is calculated using the 2020 CKD-EPI creatinine equation. This equation utilizes serum creatinine, sex, and age as parameters. The creatinine assay has traceable calibration to isotope dilution-mass spectrometry. Refer to KDIGO guidelines for clinical interpretation. In patients with unstable renal function, e.g. those with acute kidney injury, the eGFR may not accurately reflect actual GFR. Glucose [Mass/Vol] 184 mg/dL High 74 - 99 mg/dL [facility] Comment on above: The [place] Diabete s Association (ADA) provides guidance for cutoff values [...] Standards of Medical Care in Diabetes 2016, [place] Diabetes Association. Diabetes Care. 2016.39(Suppl 1). Interpretation and review of laboratory results Abnormal [facility] Phosphate [Mass/Vol] 4.2 mg/dL 2.7 - 4 .8 mg/dL [facility] Potassium [Moles/Vol] 5.4 mmol/L High 3.7 - 5.1 mmol/L [facility] Sodium [Moles/Vol] 142 mmol/L 136 - 144 mmol/L [facility] Urea nitrogen [Mass/Vol] 82 mg/dL High 7 - 21 mg/dL [facility] Albumin [Mass/Vol] 4.1 g/dL Normal 3.9-4.9 [facility] Comment on above: Order Comment: Speci men Type: BLOOD SPECIMEN Ordering Facility: [facility] Address: [address] [place] [address] Performed By: #### 5 0190-8, 61548-7, 6-4 #### [facility] CLIA [id number] [address] [place] [address] [place] Anion gap [Moles/Vol] 14 mmol/L Normal 8-15 [facility] Comment on above: Order Comment: Speci men Type: BLOOD SPECIMEN Ordering Facility: [facility] Address: [address] [place] [address] Performed By: #### 5 0190-8, 29254-4, 2275-4 #### [facility] CLIA [id number] [address] [place] [address] [place] Calcium [Mass/Vol] 10.0 mg/dL Normal 8.5-10.2 [facility] Comment on above: Order Comment: Speci men Type: BLOOD SPECIMEN Ordering Facility: [facility] Address: [address] [place] [address] Performed By: #### 5 0190-8, 75315-0, 2275-4 #### [facility] CLIA [id number] [address] [place] [address] [place] Chloride [Moles/Vol] 103 mmol/L Normal 98-107 [facility] Comment on above: Order Comment: Speci men Type: BLOOD SPECIMEN Ordering Facility: [facility] Address: [address] [place] [address] Performed By: #### 5 0190-8, 61803-0, 2275-4 #### [facility] CLIA [id number] [address] [place] [address] [place] CO2 [Moles/Vol] 25 mmol/L Normal 22-30 [facility] Comment on above: Order Comment: Speci men Type: BLOOD SPECIMEN Ordering Facility: [facility] Address: [address] [place] [address] Performed By: #### 5 0190-8, 86961-5, 2275-4 #### [facility] CLIA [id number] [address] [place] [address] [place] Creatinine [Mass/Vol] 1.88 mg/dL High 0.58-0.96 [facility] Comment on above: Order Comment: Speci men Type: BLOOD SPECIMEN Ordering Facility: [facility] Address: [address] [place] [address] Performed By: #### 5 0190-8, 80003-1, 2275-4 #### [facility] CLIA [id number] [address] [place] [address] [place] Creatinine and Glomerular filtration rate.predicted panel (S/P/Bld) 27 mL/min/1.73m??? Low >=60 [facility] Comment on above: Order Comment: Speci men Type: BLOOD SPECIMEN Ordering Facility: [facility] Address: [address] [place] [address] Result Comment: Malini mated Glomerular Filtration Rate [...] accurately reflect actual GFR. Performed By: #### 5 0190-8, 55729-1, 2275-4 #### [facility] CLIA [id number] [address] [place] [address] [place] Glucose [Mass/Vol] 184 mg/dL High 74-99 [facility] Comment on above: Order Comment: Speci men Type: BLOOD SPECIMEN Ordering Facility: [facility] Address: [address] [place], [place] [address] Result Comment: The [place] Diabetes Association (ADA) provides guidance for cutoff [...] Standards of Medical Care in Diabetes 2016, [place] Diabetes Association. Diabetes Care. 2016.39(Suppl 1). Performed By: #### 5 0190-8, 53198-5, 2275- #### [facility] CLIA [id number] [address] [place] [address] [place] Phosphate [Mass/Vol] 4.2 mg/dL Normal 2.7-4.8 [facility] Comment on above: Order Comment: Speci men Type: BLOOD SPECIMEN Ordering Facility: [facility] Address: [address] [place], [place] [address] Performed By: #### 5 0190-8, 87896-2, 2276-02 #### [facility] CLIA [id number] [address] [place] [address] [place] Potassium [Moles/Vol] 5.4 mmol/L High 3.7-5.1 [facility] Comment on above: Order Comment: Speci men Type: BLOOD SPECIMEN Ordering Facility: [facility] Address: [address] [place], [place] [address] Performed By: #### 5 0190-8, 45927-5, 2275- #### [facility] CLIA [id number] [address] [place] [address] [place] Sodium [Moles/Vol] 142 mmol/L Normal 136-144 [facility] Comment on above: Order Comment: Speci men Type: BLOOD SPECIMEN Ordering Facility: [facility] Address: [address] [place] [address] Performed By: #### 5 0190-8, 39651-7, 2276-4 #### [facility] CLIA [id number] [address] [place] [address] [place] Urea nitrogen [Mass/Vol] 82 mg/dL High 7-21 [facility] Comment on above: Order Comment: Speci men Type: BLOOD SPECIMEN Ordering Facility: [facility] Address: [address] [place] [address] Performed By: #### 5 0190-8, 55380-3, 2276-4 #### [facility] CLIA [id number] [address] [place] [address] [facility] CNPNon 06-18-2024 CNPN Telephone (MIDMAV) VARSHA CHAUDHRY ([id number]) 1945 F Date Time Provider Department 06/18/24 TIERA SPANGLER During your visit today, we recorded the following information about you: Lela Abdi 06/18/2024 3:20 PM Signed Varsha is calling Tiera Spangler RD today with concern regarding Medication Assistance (LOKELMA). Pt states provider told her she would help try to get her a lower cost on LOKELMA. Please advise. Patient has been identified by name and birthdate. Duration of symptoms: N/A Person calling: self Call patient at: at home [phone] (home) [phone] (cell) Was an appointment scheduled: No Closing statement: Results or non-symptom based questions: Thank you for calling [facility], your call will be returned within the next business day. Tiera Bruno, MELVA.SINTER PRESS OPERATOR 06/18/2024 3:53 PM Signed Returned call to pt She is on lokelma 10gm daily She has been getting samples from PCP and she has no more samples-she called insurance and it is 700-800 dollars She prefers to stay on lokelma I will have CRISTELA fill out assistance application for pt I will also have CRISTELA mail voucher and free trial coupon to patient Tiera Kayy Spangler APRN.Viola Herndon MA 06/18/2024 4:45 PM Signed Spoke with pt, offered to hand patient requested forms at scheduled appt on 06/25/24 with Tiera Crys. Pt declined and stated she would be in [facility] on 06/20/24. AZANDME nicole, Lokelma cards, and Lokelma prescription have been placed in an envelope in prescription box behind AVW2-2 behind check-out. Patient is to fill out page one of application and leave for Tiera. Please place completed application in Tiera's mailbox once completed by patient. *Patient plans to seed cone picker packet 06/20/24 in the AM* CRISTELA Agustin Carissa, MA 07/02/2024 10:27 AM Signed Patient nicole received. Placed with provider form in mailbox. CRISTELA Agustin Carissa, MA 07/08/2024 4:20 PM Addendum AZANDME nicole faxed. Confirmation status of Ok received. Marked with MRN and placed for scanning. Viola Vidal MA Allergies As of Date: 06/18/2024 Noted Allergy Reaction ACETAMINOPHEN-CODEIN E 11/27/1999 14 - Other: See Comments BENZONATATE 11/27/1999 11 - Vomiting CEPHALEXIN 11/27/1999 2 - Rash CIPROFLOXACIN 11/12/2019 14 - Other: See Comments CLINDAMYCIN 11/12/2019 14 - Other: See Comments PENICILLINS 11/07/2014 14 - Other: See Comments Date Reviewed: 02/13/2024 Reviewed by: Tahir Phoenix MA - Fully Assessed Reason for Visit: Medication Assistance [0202] Cmt: LOKELMA Order(s):sodium zirconium cyclosilicate (LOKELMA) 10 gram oral packetTake 1 Packet by mouth once daily. Mix powder in 45 mL of water, stir and drink immediately.Disp: 30 PacketRfl: 11 Prescriptions as of 07/08/2024 - sodium zirconium cyclosilicate (LOKELMA) 10 gram oral packet Take 1 Packet by mouth once daily. Mix powder in 45 mL of water, stir and drink immediately. - torsemide (DEMADEX) 20 mg tablet Take 1 tablet by mouth every other day. - insulin lispro-aabc (LYUMJEV KWIKPEN) 100 unit/mL insulin pen Inject subcutaneously three times daily before meals. - Magnesium Oxide 500 mg tab Take 500 mg by mouth once daily. - KERENDIA 10 mg tablet Take 10 mg by mouth once daily. - montelukast (SINGULAIR) 10 mg tablet Take 10 mg by mouth once daily. - sacubitril-valsartan (ENTRESTO) 97-103 mg tablet Take 1 tablet by mouth twice daily. - Cholecalciferol, Vitamin D3, 50 mcg (2,000 unit) cap Take 1 capsule by mouth once daily. - multivit,thx,calcium ,iron,mins (MULTIVITAMIN AND MINERAL ORAL) Take by mouth once daily. - CALCIUM-VITAMIN D3 ORAL Take by mouth. - aspirin 81 mg chewable tablet Take 81 mg by mouth once daily. - Vitamin E, dl, acetate, 1,000 unit capsule Take 1,000 Units by mouth once daily. - insulin glargine,hum.rec.anl og (LANTUS SOLOSTAR U-100 INSULIN SUBCUTANEOUS) Inject subcutaneously. 34 units daily - carvedilol (COREG) 25 mg tablet Take 25 mg by mouth twice daily with meals. - Biotin 10,000 mcg cap Take by mouth once daily. 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 Mix powder in 45 mL of water, stir and drink immediately. Medications Discontinued During This Encounter Prescriptions - sodium zirconium cyclosilicate (LOKELMA) 10 gram oral packet (Discontinued) Take 1 Packet by mouth once (more content not included)... Normal [facility] Capillary blood glucose arlyn urement by glucometer (mass/volume)Ordered By: Edgard Abdi on 05-03-2024 Glucose [Mass/Vol] 183 mg/dL Normal [facility] Comment on above: Random Glucose Refer ence Range is dependent on time and content of last meal. Glucose of more than 200 mg/dL in a nonstressed, ambulatory subject supports the diagnosis of Diabetes Mellitus. Result Comment: [place] Glucose Reference Range is dependent on time and content of last meal. Glucose of more than 200 mg/dL in a nonstressed, ambulatory subject supports the diagnosis of Diabetes Mellitus. Performed By: #### G LULS #### Point of Care testing , Glucose Poct Glucometerson 0 05-03-2024 Commemt1 Glu2: Cleaned Meter Normal [facility] Comment on above: Result Comment: PERF ORMED BY: [facility] [address] [place] [address] PATHOLOGIST CONVENTIONAL MACHINIST LV BEGUM M.D. Performed By: #### G LULS #### Point of Care testing , No Panel InformationOrdered By: Edgard Abdi on 05-03-2024 Bedside Glucose Comment Glu2: cleaned meter [facility] CNPTrudi 03-08-2024 [facility] (MIDWVV) VARSHA CHAUDHRY ([id number]) 1945 F Date Time Provider Department 03/08/24 MARYLU HEADLEY During your visit today, we recorded the following information about you: Liban Zuñiga RN 03/08/2024 2:39 PM Signed Patient?s identity has been confirmed by name and birthdate: Yes Call received from Erika from [facility] outpatient lab at 225 PM to report a critical value for BUN with a result of 90.0. Dr Headley was notified of the result at 0238PM. LLOYD Roldan Diana, DO 03/08/2024 2:46 PM Signed Please call the lab and get a fax of the rest of the lab work Of note her labs from 02/05/2024 Labs scanned: 02/05/2024 Na 138, K 4.6, Chloride 101, CO2 27.4, BUN 108, Creatinine 2.53mg/dL, calcium 9.1, Phos 4.6. Albumin 3.3, glucose 319 Vitamin D 47.7 Marylu Headley DO March 08, 2024, 2:45 PM Marylu Headley DO 03/08/2024 3:28 PM Signed Received labs Na 143, K 4.5, Chloride 107, Bicarb 26.8, BUN 90, Creatinine 1.98mg/dL, Ca 9.8, Phos 4.8, Albumin 3.4 Labs scanned: 02/05/2024 Na 138, K 4.6, Chloride 101, CO2 27.4, BUN 108, Creatinine 2.53mg/dL, calcium 9.1, Phos 4.6. Albumin 3.3, glucose 319 Vitamin D 47.7 Called patient, she feels well, creatinine and BUN are better than prior. She reports no changes and states her appetite is good, no nausea or vomiting or bitter metallic taste in mouth. She states she did not tolerate sotaglifalozin and is back on her torsemide. Scheduled to see Tiera Spangler in 06/25/2024, update labs prior to visit. Marylu Headley DO March 08, 2024, 3:24 PM Allergies As of Date: 03/08/2024 Noted Allergy Reaction ACETAMINOPHEN-CODEIN E 11/27/1999 14 - Other: See Comments BENZONATATE 11/27/1999 11 - Vomiting CEPHALEXIN 11/27/1999 2 - Rash CIPROFLOXACIN 11/12/2019 14 - Other: See Comments CLINDAMYCIN 11/12/2019 14 - Other: See Comments PENICILLINS 11/07/2014 14 - Other: See Comments Date Reviewed: 02/13/2024 Reviewed by: Tahir Phoenix MA - Fully Assessed Reason for Visit: Critical Results [1705] Prescriptions as of 03/08/2024 - torsemide (DEMADEX) 20 mg tablet Take 1 tablet by mouth every other day. - insulin lispro-aabc (LYUMJEAngela MERCERIKPEN) 100 unit/mL insulin pen Inject subcutaneously three [...] 1 capsule by mouth once daily. - multivit,thx,calcium ,iron,mins (MULTIVITAMIN AND MINERAL ORAL) Take by mouth once daily. - CALCIUM-VITAMIN D3 ORAL Take by mouth. - aspirin 81 mg chewable tablet Take 81 mg by mouth once daily. - Vitamin E, dl, acetate, 1,000 unit capsule Take 1,000 Units by mouth once daily. - insulin glargine,hum.rec.anl og (LANTUS SOLOSTAR U-100 INSULIN SUBCUTANEOUS) Inject subcutaneously. 34 units daily - carvedilol (COREG) 25 mg tablet Take 25 mg by mouth twice daily with meals. - Biotin 10,000 mcg cap Take by mouth once daily. 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 Her stick roller had wanted her to start sotagliflozin 200mg [...] As of Date: 02/14/2024 Noted Allergy Reaction ACETAMINOPHEN-CODEIN E 11/27/1999 14 - Other: See Comments BENZONATATE [...] 1 capsule by mouth once daily. - multivit,thx,calcium ,iron,mins (MULTIVITAMIN AND MINERAL ORAL) Take by mouth once daily. - CALCIUM-VITAMIN D3 ORAL Take by mouth. - aspirin 81 mg chewable tablet Take 81 mg by mouth once daily. - Vitamin E, dl, acetate, 1,000 unit capsule Take 1,000 Units by mouth once daily. - insulin glargine,hum.rec.anl og (LANTUS SOLOSTAR U-100 INSULIN SUBCUTANEOUS) Inject subcutaneously. [...] Status:Closed by MARYLU HEADLEY on 02/14/24 Normal [facility] 25(OH)D3 [facility]-elise 2023 25-hydroxyvitamin D3 [Mass/Vol] 55.6 ng/mL Normal 31.0-80.0 [facility] Comment on above: Order Comment: Speci men Type: BLOOD SPECIMEN Ordering Facility: [facility] Address: [address] [place] [address] Result Comment: Clas sification of 25 [place] Vitamin D status: Deficiency/Insufficiency: < or = 30 ng/ml. Sufficiency/Optimal Levels: 31-80 ng/mL Toxicity: > 100 ng/mL. Test performed by chemiluminescent immunoassay. Performed By: #### 5 5454-3 #### [facility] CLIA [id number] [address] [place] [address] [place] [address] [place] CBC panel Auto (Bld)on 02-12 Erythrocyte distribution width (RBC) [Ratio] 13.1 % Normal 11.5-15.0 [facility] Comment on above: Order Comment: Speci men Type: BLOOD SPECIMEN Ordering Facility: [facility] Address: [address] [place] [address] Performed By: #### 5 5454-3 #### [facility] CLIA [id number] [address] [place] [address] [place] Hematocrit (Bld) [Volume fraction] 40.6 % Normal 36.0-46.0 [facility] Comment on above: Order Comment: Speci men Type: BLOOD SPECIMEN Ordering Facility: [facility] Address: [address] [place] [address] Performed By: #### 5 5454-3 #### [facility] CLIA [id number] [address] [place] [address] [place] Hemoglobin (Bld) [Mass/Vol] 12.9 g/dL Normal 11.5-15.5 [facility] Comment on above: Order Comment: Speci men Type: BLOOD SPECIMEN Ordering Facility: [facility] Address: [address] [place] [address] Performed By: #### 5 5454-3 #### [facility] CLIA [id number] [address] [place] [address] [place] MCH (RBC) [Entitic mass] 29.7 pg Normal 26.0-34.0 [facility] Comment on above: Order Comment: Speci men Type: BLOOD SPECIMEN Ordering Facility: [facility] Address: [address] [place] [address] Performed By: #### 5 5454-3 #### [facility] CLIA [id number] [address] [place] [address] [place] MCHC (RBC) [Mass/Vol] 31.8 g/dL Normal 30.5-36.0 [facility] Comment on above: Order Comment: Speci men Type: BLOOD SPECIMEN Ordering Facility: [facility] Address: [address] [place] [address] Performed By: #### 5 5454-3 #### [facility] CLIA [id number] [address] [place] [address] [place] MCV (RBC) [Entitic vol] 93.5 fL Normal 80.0-100.0 [facility] Comment on above: Order Comment: Speci men Type: BLOOD SPECIMEN Ordering Facility: [facility] Address: [address] [place] [address] Performed By: #### 5 5454-3 #### [facility] CLIA [id number] [address] [place] [address] [place] Nucleated RBC (Bld) [#/Vol] 10*3/uL Normal <0.01 [facility] Comment on above: Order Comment: Speci men Type: BLOOD SPECIMEN Ordering Facility: [facility] Address: [address] [place] [address] Performed By: #### 5 5454-3 #### [facility] CLIA [id number] [address] [place] [address] [place] Platelet mean volume (Bld) [Entitic vol] 10.3 fL Normal 9.0-12.7 [facility] Comment on above: Order Comment: Speci men Type: BLOOD SPECIMEN Ordering Facility: [facility] Address: [address] [place] [address] Performed By: #### 5 5454-3 #### [facility] CLIA [id number] [address] [place] [address] [place] Platelets (Bld) [#/Vol] 247 10*3/uL Normal 150-400 [facility] Comment on above: Order Comment: Speci men Type: BLOOD SPECIMEN Ordering Facility: [facility] Address: [address] [place] [address] Performed By: #### 5 5454-3 #### [facility] CLIA [id number] [address] [place] [address] [place] RBC (Bld) [#/Vol] 4.34 10*6/uL Normal 3.90-5.20 [facility] Comment on above: Order Comment: Earline porras Type: BLOOD SPECIMEN Ordering Facility: [facility] Address: [address] [place] [address] Performed By: #### 5 5454-3 #### [facility] CLIA [id number] [address] [place] [address] [place] WBC (Bld) [#/Vol] 10.17 10*3/uL Normal 3.70-11.00 [facility] Comment on above: Order Comment: Earline porras Type: BLOOD SPECIMEN Ordering Facility: [facility] Address: [address] [place] [address] Performed By: #### 5 5454-3 #### [facility] CLIA [id number] [address] [place] [address] OF TOM CNOVon 02-13-2024 CNOV Office Visit ([facility]) VARSHA CHAUDHRY ([id number]) 1945 F Date Time Provider Department 02/13/24 10:40 AM MARYLU HEADLEY [facility] During your visit today, we recorded the following information about you: Pulse Blood pressure Weight Height 59/minute 158/81 86.5 kg 1.575 m Marylu Headley DO 02/13/2024 12:21 PM Signed HPI: Ms. Chaudhry is a 78 year old female who presents for a follow-up of proteinuric CKD stage IV with history of DM and HTN. She has history of heart failure monitored by cardiology locally for heart failure is on kerendia and entresto. She reports she will be getting an echo on 03/24. She recently saw her stick roller, he wanted her to take sotagliflozin as [...] Take 1 capsule by mouth once daily. multivit,thx,calcium ,iron,mins (MULTIVITAMIN AND MINERAL ORAL) Take by mouth once daily. CALCIUM-VITAMIN D3 ORAL Take by mouth. aspirin 81 mg chewable tablet Take 81 mg by mouth once daily. Vitamin E, dl, acetate, 1,000 unit capsule Take 1,000 Units by mouth once daily. insulin glargine,hum.rec.anl og (LANTUS SOLOSTAR U-100 INSULIN SUBCUTANEOUS) Inject subcutaneously. 34 units daily carvedilol (COREG) 25 mg tablet Take 25 mg by mouth twice daily with meals. Biotin 10,000 mcg cap Take by mouth once daily. No current facility-administere d medications for this visit. Social history: reports [...] Lab Results (more content not included)... Normal [facility] Creatinine Unsp time (U) [Ma ss/Vol]on 02-13-2024 Creatinine (U) [Mass/Vol] 52.0 mg/dL Normal 20.0-300.0 [facility] Comment on above: Order Comment: Speci men Type: BLOOD SPECIMEN Ordering Facility: [facility] Address: [address] [place] [address] Performed By: #### 5 5454-3 #### [facility] CLIA [id number] [address] [place] [address] [place] PROTEIN CREATININE RATIOon 0 02-13-2024 Protein/Creatinine (U) [Mass ratio] 1.19 mg/mg High <0.15 mg/mg [facility] Prot Ur-mCncon 02-13-2024 Protein (U) [Mass/Vol] 62 mg/dL High 0-20 [facility] Comment on above: Order Comment: Speci men Type: BLOOD SPECIMEN Ordering Facility: [facility] Address: [address] [place] [address] Performed By: #### 5 5454-3 #### [facility] CLIA [id number] [address] [place] [address] [place] Prot/Creat Uron 02-13-2024 Protein/Creatinine (U) [Mass ratio] 1.19 mg/mg High <0.15 [facility] Comment on above: Order Comment: Speci men Type: BLOOD SPECIMEN Ordering Facility: [facility] Address: [address] [place] [address] Result Comment: Adul t Proteinuria Categories: <0.15 mg/mg is considered normal to mildly increased 0.15 - 0.50 mg/mg is considered moderately increased >0.50 mg/mg is considered severely increased KDIGO. (2013). KDIGO 2012 Clinical Practice Guideline for the Evaluation and Management of Chronic Kidney Disease. Official Journal of the International Society of Nephrology, 3(1), 1-150. Performed By: #### 5 5454-3 #### [facility] CLIA [id number] [address] [place] [address] [place] Protein/Creatinine (U) [Mass ratio]on 02-13-2024 Creatinine (U) [Mass/Vol] 52.0 mg/dL 20.0 - 300.0 mg/dL [facility] Protein (U) [Mass/Vol] 62 mg/dL High 0 - 20 mg/dL [facility] Creatinine (U) [Mass/Vol] 52.0 mg/dL Normal 20.0-300.0 [facility] Comment on above: Order Comment: Speci men Type: BLOOD SPECIMEN Ordering Facility: [facility] Address: [address] [place] [address] Performed By: #### 5 5454-3 #### [facility] CLIA [id number] [address] [place] [address] [place] Renal function 2000 panelon 02-13-2024 Albumin [Mass/Vol] 4.0 g/dL Normal 3.9-4.9 [facility] Comment on above: Order Comment: Speci men Type: BLOOD SPECIMEN Ordering Facility: [facility] Address: [address] [place] [address] Performed By: #### 5 5454-3 #### [facility] CLIA [id number] [address] [place] [address] [place] Anion gap [Moles/Vol] 12 mmol/L Normal 9-18 [facility] Comment on above: Order Comment: Speci men Type: BLOOD SPECIMEN Ordering Facility: [facility] Address: [address] [place] [address] Performed By: #### 5 5454-3 #### [facility] CLIA [id number] [address] [place] [address] [place] Calcium [Mass/Vol] 9.5 mg/dL Normal 8.5-10.2 [facility] Comment on above: Order Comment: Speci men Type: BLOOD SPECIMEN Ordering Facility: [facility] Address: [address] [place] [address] Performed By: #### 5 5454-3 #### [facility] CLIA [id number] [address] [place] [address] [place] Chloride [Moles/Vol] 103 mmol/L Normal 97-105 [facility] Comment on above: Order Comment: Speci men Type: BLOOD SPECIMEN Ordering Facility: [facility] Address: [address] [place] [address] Performed By: #### 5 5454-3 #### [facility] CLIA [id number] [address] [place] [address] [place] CO2 [Moles/Vol] 28 mmol/L Normal 22-30 [facility] Comment on above: Order Comment: Speci men Type: BLOOD SPECIMEN Ordering Facility: [facility] Address: [address] [place] [address] Performed By: #### 5 5454-3 #### [facility] CLIA [id number] [address] [place] [address] [place] Creatinine [Mass/Vol] 2.02 mg/dL High 0.58-0.96 [facility] Comment on above: Order Comment: Speci men Type: BLOOD SPECIMEN Ordering Facility: [facility] Address: [address] [place] [address] Performed By: #### 5 5454-3 #### [facility] CLIA [id number] [address] [place] [address] [place] Creatinine and Glomerular filtration rate.predicted panel (S/P/Bld) 25 mL/min/1.73m??? Low >=60 [facility] Comment on above: Order Comment: Earline porras Type: BLOOD SPECIMEN Ordering Facility: [facility] Address: [address] [place] [address] Result Comment: Malini mated Glomerular Filtration Rate [...] accurately reflect actual GFR. Performed By: #### 5 5454-3 #### [facility] CLIA [id number] [address] [place] [address] [place] Glucose [Mass/Vol] 92 mg/dL Normal 74-99 [facility] Comment on above: Order Comment: Earline porras Type: BLOOD SPECIMEN Ordering Facility: [facility] Address: [address] [place] [address] Result Comment: The [place] Diabetes Association (ADA) provides guidance for cutoff [...] Standards of Medical Care in Diabetes 2016, [place] [employer]. Diabetes Care. 2016.39(Suppl 1). Performed By: #### 5 5454-3 #### [facility] CLIA [id number] [address] [place] [address] [place] Phosphate [Mass/Vol] 4.2 mg/dL Normal 2.7-4.8 [facility] Comment on above: Order Comment: Earline porras Type: BLOOD SPECIMEN Ordering Facility: [facility] Address: [address] [place] [address] Performed By: #### 5 5454-3 #### [facility] CLIA [id number] [address] [place] [address] [place] Potassium [Moles/Vol] 4.3 mmol/L Normal 3.7-5.1 [facility] Comment on above: Order Comment: Speci men Type: BLOOD SPECIMEN Ordering Facility: [facility] Address: [address] [place] [address] Performed By: #### 5 5454-3 #### [facility] CLIA [id number] [address] [place] [address] [place] Sodium [Moles/Vol] 143 mmol/L Normal 136-144 [facility] Comment on above: Order Comment: Speci men Type: BLOOD SPECIMEN Ordering Facility: [facility] Address: [address] [place] [address] Performed By: #### 5 5454-3 #### [facility] CLIA [id number] [address] [place] [address] [place] Urea nitrogen [Mass/Vol] 96 mg/dL High 7-21 [facility] Comment on above: Order Comment: Speci men Type: BLOOD SPECIMEN Ordering Facility: [facility] Address: [address] [place] [address] Performed By: #### 5 5454-3 #### [facility] CLIA [id number] [address] [place] [address] [place] Urinalysis complete panel (U )on 02-13-2024 Bilirubin Ql (U) Negative Negative [facility] Clarity (Unsp spec) Clear Clear [facility] Color (U) Light Yellow yellow [facility] Epithelial cells LM.HPF (Urine sed) [#/Area] Few [facility] Glucose Test strip (U) [Mass/Vol] Negative Trace, Negative [facility] Hemoglobin Ql (U) Negative Negative, Trace [facility] Ketones Ql (U) Negative Negative, Trace [facility] Leukocyte esterase Test strip Ql (U) Negative Negative, 25 Jessi/uL [facility] Nitrite Ql (U) Negative Negative [facility] pH (U) 6.0 [pH] 5.0 - 8.0 [facility] Protein (U) [Mass/Vol] 1+ Abnormal Trace , Negative [facility] RBC LM.HPF (Urine sed) [#/Area] 0-3 /HPF 0-3 /HPF [facility] Specific gravity (U) [Rel density] 1.014 1.005 - 1.030 [facility] Urobilinogen Ql (U) Normal Normal [facility] WBC LM.HPF (Urine sed) [#/Area] 0-5 /HPF 0-5 /HPF [facility] Bilirubin Ql (U) Negative Normal Negative [facility] Comment on above: Order Comment: Speci men Type: URINE SPECIMEN Ordering Facility: [facility] Address: [address] [place] [address] Performed By: #### 2 4356-8 #### [facility] IA [id number] [address] [place] [address] [place] Clarity (Unsp spec) Clear Normal Clear [facility] Comment on above: Order Comment: Speci men Type: URINE SPECIMEN Ordering Facility: [facility] Address: [address] [place] [address] Performed By: #### 2 4356-8 #### [facility] IA [id number] [address] [place] [address] [place] Color (U) Light Yellow Normal yellow [facility] Comment on above: Order Comment: Speci men Type: URINE SPECIMEN Ordering Facility: [facility] Address: [address] [place] [address] Performed By: #### 2 4356-8 #### [facility] IA [id number] [address] [place] [address] [place] Epithelial cells LM.HPF (Urine sed) [#/Area] Few Normal [facility] Comment on above: Order Comment: Speci men Type: URINE SPECIMEN Ordering Facility: [facility] Address: [address] [place] [address] Performed By: #### 2 4356-8 #### [facility] IA [id number] [address] [place] [address] [place] Glucose Test strip (U) [Mass/Vol] Negative Normal Trace, Negative [facility] Comment on above: Order Comment: Speci men Type: URINE SPECIMEN Ordering Facility: [facility] Address: [address] [place] [address] Performed By: #### 2 4356-8 #### [facility] IA [id number] [place] [address] [place] Hemoglobin Ql (U) Negative Normal Negative, Trace [facility] Comment on above: Order Comment: Speci men Type: URINE SPECIMEN Ordering Facility: [facility] Address: [address] [place] [address] Performed By: #### 2 4356-8 #### [facility] IA [id number] [address] [place] [address] [place] Ketones Ql (U) Negative Normal Negative, Trace [facility] Comment on above: Order Comment: Speci men Type: URINE SPECIMEN Ordering Facility: [facility] Address: [address] [place] [address] Performed By: #### 2 4356-8 #### [facility] IA [id number] [place] [address] [place] Leukocyte esterase Test strip Ql (U) Negative Normal Negative, 25 Jessi/uL [facility] Comment on above: Order Comment: Speci men Type: URINE SPECIMEN Ordering Facility: [facility] Address: [address] [place] [address] Performed By: #### 2 4356-8 #### [facility] IA [id number] [address] [place] [address] [place] Nitrite Ql (U) Negative Normal Negative [facility] Comment on above: Order Comment: Speci men Type: URINE SPECIMEN Ordering Facility: [facility] Address: [address] [place] [address] Performed By: #### 2 4356-8 #### [facility] IA [id number] [address] [place] [address] [place] pH (U) 6.0 [pH] Normal 5.0-8.0 [facility] Comment on above: Order Comment: Speci men Type: URINE SPECIMEN Ordering Facility: [facility] Address: [address] [place] [address] Performed By: #### 2 4356-8 #### [facility] IA [id number] [place] [address] [place] Protein (U) [Mass/Vol] 1+ Abnormal Trace , Negative [facility] Comment on above: Order Comment: Speci men Type: URINE SPECIMEN Ordering Facility: [facility] Address: [address] [place] [address] Performed By: #### 2 4356-8 #### [facility] IA [id number] [address] [place] [address] [place] RBC LM.HPF (Urine sed) [#/Area] 0-3 /HPF Normal 0-3 /HPF [facility] Comment on above: Order Comment: Speci men Type: URINE SPECIMEN Ordering Facility: [facility] Address: [address] [place] [address] Performed By: #### 2 4356-8 #### [facility] IA [id number] [address] [place] [address] [place] Specific gravity (U) [Rel density] 1.014 Normal 1.005-1.030 [facility] Comment on above: Order Comment: Speci men Type: URINE SPECIMEN Ordering Facility: [facility] Address: [address] [place] [address] Performed By: #### 2 4356-8 #### [facility] IA [id number] [address] [place] [address] [place] Urobilinogen Ql (U) Normal Normal Normal [facility] Comment on above: Order Comment: Speci men Type: URINE SPECIMEN Ordering Facility: [facility] Address: [address] [place] [address] Performed By: #### 2 4356-8 #### [facility] CLIA [id number] [address] [place] [address] [place] WBC LM.HPF (Urine sed) [#/Area] 0-5 /HPF Normal 0-5 /HPF [facility] Comment on above: Order Comment: Speci men Type: URINE SPECIMEN Ordering Facility: [facility] Address: [address] [place] [id number] Performed By: #### 2 4356-8 #### [facility] CLIA [id number] [address] [place] [address] [place] CNPNon 02-06-2024 CNPN Telephone ([facility]) VARSHA CHAUDHRY ([id number]) 1945 F Date Time Provider Department 02/06/24 MARYLU HEADLEY During your visit today, we recorded the following information about you: Viola Vidal MA 02/06/2024 10:01 AM Signed Received lab results from [facility]. Placed in provider mailbox for review. Viola Vidal MA Allergies As of Date: 02/06/2024 Noted Allergy Reaction ACETAMINOPHEN-CODEIN E 11/27/1999 14 - Other: See Comments BENZONATATE 11/27/1999 11 - Vomiting CEPHALEXIN 11/27/1999 2 - Rash CIPROFLOXACIN 11/12/2019 14 - Other: See Comments CLINDAMYCIN 11/12/2019 14 - Other: See Comments PENICILLINS 11/07/2014 14 - Other: See Comments Date Reviewed: 12/26/2023 Reviewed by: Krishna Cox [facility] - Fully Assessed Reason for Visit: Electronic Communication [890] Prescriptions as of 02/06/2024 - torsemide (DEMADEX) [...] 1 capsule by mouth once daily. - multivit,thx,calcium ,iron,mins (MULTIVITAMIN AND MINERAL ORAL) Take by mouth once daily. - CALCIUM-VITAMIN D3 ORAL Take by mouth. - aspirin 81 mg chewable tablet Take 81 mg by mouth once daily. - Vitamin E, dl, acetate, 1,000 unit capsule Take 1,000 Units by mouth once daily. - insulin glargine,hum.rec.anl og (LANTUS SOLOSTAR U-100 INSULIN SUBCUTANEOUS) Inject subcutaneously. [...] Encounter Status:Closed by VIOLA VIDAL on 02/06/24 [facility] Telephone ([facility]) VARSHA CHAUDHRY ([id number]) 1945 F Date Time Provider Department 02/06/24 [...] DO February 06, 2024, 10:31 AM Cecily Baron, RN 02/06/2024 12:26 PM Signed Patient calling back Read message below Voiced understanding She feels great Will wait until next week/ will get lab work while at [facility] Transferred to scheduling to make lab appointment [...] AM Signed Called patient, she reports her completions engineer put her on azithromycin for 5 days due to her blister on her toe. She is seeing him tomorrow in follow up. Has a visit with me next week and we can monitor repeat labs. Marylu Headley DO February 07, 2024, 11:46 AM Allergies As of Date: 02/06/2024 Noted Allergy Reaction ACETAMINOPHEN-CODEIN E 11/27/1999 14 - Other: See Comments BENZONATATE [...] 1 capsule by mouth once daily. - multivit,thx,calcium ,iron,mins (MULTIVITAMIN AND MINERAL ORAL) Take by mouth once daily. - CALCIUM-VITAMIN D3 ORAL Take by mouth. - aspirin 81 mg chewable tablet Take 81 mg by mouth once daily. - Vitamin E, dl, acetate, 1,000 unit capsule Take 1,000 Units by mouth once daily. - insulin glargine,hum.rec.anl og (LANTUS SOLOSTAR U-100 INSULIN SUBCUTANEOUS) Inject subcutaneously. [...] systolic and diastolic congest*11/12/2019 Encounter Status:Closed by DEITZER, MARYLU on 02/06/24 [facility] CNOVon 12-26-2023 CNOV Office Visit (MIDWVV) YAMIL CHAUDHRYSA ([id number]) 1945 F Date Time Provider Department 12/26/23 2:30 PM [facility] During your visit today, we recorded the following information about you: Pulse Blood pressure Weight Height 75/minute 201/69 86.5 kg 1.575 m Tiera Spangler, WATCH INSPECTOR FINAL MOVEMENT.SINTER PRESS OPERATOR 12/26/2023 2:31 PM Signed Pt is [...] labs DM-last A1C 8.9. She follows in [place], [place]. Continue endo follow up Plan No changes Labs prior to next follow up Has follow up in [address] Headley. Will keep appt and see me in 6 months Tiera Spangler APRN.SINTER PRESS OPERATOR Allergies As of Date: 12/26/2023 Noted Allergy Reaction ACETAMINOPHEN-CODEIN E 11/27/1999 14 - Other: See Comments BENZONATATE [...] stage 4 chronic kidney disease, unspecified whether mcfp insulin use (HCC) [E11.22, N18.4] Vitamin D deficiency [E55.9] Order(s):CBC [SQCBC] Order #: [id number] FUTURE CREATININE RANDOM UR [SQUCRR] Order #: [id number] FUTURE PROTEIN RANDOM UR [SQUTPR] Order #: [id number] FUTURE RENAL FUNCTION PANEL [SQRFP] Order #: [id number] FUTURE VITAMIN D 25 HYDROXY [SQVITD] Order #: [id number] FUTURE Prescriptions as of 12/26/2023 - torsemide (DEMADEX) 20 mg tablet Take 1 tablet by mouth every other day. - insulin lispro-aabc (LUCYUMTORIN SHAHID) 100 unit/mL insulin pen Inject subcutaneously [...] - sacubitril (more content not included)... [facility] [place] 12-06-2023 [place] Telephone ([facility]) VARSHA CHAUDHRY ([id number]) 1945 F Date Time Provider Department 12/06/23 MARYLU HEADLEY During your visit today, we recorded the following information about you: Marylu Headley DO 12/06/2023 8:30 AM Signed Please call [facility] for results of lab work done on Monday12/01/2023. Thank you Raul Hoffman OCCA 12/06/2023 1:28 PM Signed Called and left a vm with [facility] at [phone] to request lab results from 12/01/[address] Headley's request. EFE Potts Diana, DO 12/06/2023 2:42 PM Signed Lab work from 12/01 obtained Na 136 L 3.5 Chloride 102 Bicarb 27.4 BUN 64 Creatinine 1.96 Marylu Headley DO December 06, 2023, 2:41 PM Allergies As of Date: 12/06/2023 Noted Allergy Reaction ACETAMINOPHEN-CODEIN E 11/27/1999 14 - Other: See Comments BENZONATATE [...] 1 capsule by mouth once daily. - multivit,thx,calcium ,iron,mins (MULTIVITAMIN AND MINERAL ORAL) Take by mouth once daily. - CALCIUM-VITAMIN D3 ORAL Take by mouth. - aspirin 81 mg chewable tablet Take 81 mg by mouth once daily. - Vitamin E, dl, acetate, 1,000 unit capsule Take 1,000 Units by mouth once daily. - insulin glargine,hum.rec.anl og (LANTUS SOLOSTAR U-100 INSULIN SUBCUTANEOUS) Inject subcutaneously. [...] Encounter Status:Closed by MARYLU HEADLEY on 12/06/23 [facility] [place] 11-21-2023 [facility] Telephone (MIDWVV) VARSHA CHAUDHRY ([id number]) 1945 F Date Time Provider Department 11/21/23 [facility] During your visit today, we recorded the following information about you: Irina Allen, LLOYD 11/21/2023 2:15 PM Signed Patient?s identity has been confirmed by name and birthdate: Yes Call received from Varghese Gillespie at [facility] at 2:08 PM to report [...] is FAXING results over to FAX # [phone] Tiera Spangler APRN.DORINA 11/21/2023 2:33 PM Signed [...] is having her drive her to the [facility] Pt was asking if Provider Crys was going to call report / or tell them she was coming? I do not know if that is the plan; but I told pt not to wait and to have her take her there now but I would route this message to the SINTER PRESS OPERATOR/team Marylu Headley DO 11/28/2023 12:08 PM [...] As of Date: 11/21/2023 Noted Allergy Reaction ACETAMINOPHEN-CODEIN E 11/27/1999 14 - Other: See Comments BENZONATATE [...] 1 capsule by mouth once daily. - multivit,thx,calcium ,iron,mins (MULTIVITAMIN AND MINERAL ORAL) Take by mouth once daily. - CALCIUM-VITAMIN D3 ORAL Take by mouth. - aspirin 81 mg chewable tablet Take 81 mg by mouth once daily. - Vitamin E, dl, acetate, 1,000 unit capsule Take 1,000 Units by mouth once daily. - insulin glargine,hum.rec.anl og (LANTUS SOLOSTAR U-100 INSULIN SUBCUTANEOUS) Inject subcutaneously. [...] Encounter Status:Closed by TIERA SPANGLER on 11/21/23 [facility] [place] 11-15-2023 [place] Telephone (MIDMAV) LIZBETHVARSHA ([id number]) 1945 F Date Time Provider Department 11/15/23 TIERA SPANGLER [facility] During your visit today, we recorded the following information about you: Brigitte Phelps OCCA 11/15/2023 11:53 AM Signed Contacted patient to advise her of the message below from Tiera Spangler APRN SINTER PRESS OPERATOR. She agreed with plan as stated below and will mostly likely get it done today. Please remind patient she is due for nonfasting labs at [facility]. I sent order last week. EFE Mckeon Allergies As of Date: 11/15/2023 Noted Allergy Reaction ACETAMINOPHEN-CODEIN E 11/27/1999 14 - Other: See Comments BENZONATATE [...] 1 capsule by mouth once daily. - multivit,thx,calcium ,iron,mins (MULTIVITAMIN AND MINERAL ORAL) Take by mouth once daily. - CALCIUM-VITAMIN D3 ORAL Take by mouth. - aspirin 81 mg chewable tablet Take 81 mg by mouth once daily. - Vitamin E, dl, acetate, 1,000 unit capsule Take 1,000 Units by mouth once daily. - insulin glargine,hum.rec.anl og (LANTUS SOLOSTAR U-100 INSULIN SUBCUTANEOUS) Inject subcutaneously. [...] and diastolic congest*11/12/2019 Encounter Status:Closed by BRIGITTE [facility]HELPS [facility]SHA CHAUDHR[facility] ([id number]) 1945 F Date Time Provider Department 11/15/23 [facility] During your visit today, we recorded the following information about you: Liban Naqvi, RN 11/15/2023 3:01 PM Signed [facility] is calling. The pt's BUN from the pt's lab draw was 124. They are faxing the entire panel results to [facility] fax number [phone] for your review. Tiera Spangler APRN.DORINA 11/15/2023 [...] up labs 11/21 BP 118/57 Tiera Spangler APRN.SINTER PRESS OPERATOR Allergies As of Date: 11/15/2023 Noted Allergy Reaction ACETAMINOPHEN-CODEIN E 11/27/1999 14 - Other: See Comments BENZONATATE [...] 1 capsule by mouth once daily. - multivit,thx,calcium ,iron,mins (MULTIVITAMIN AND MINERAL ORAL) Take by mouth once daily. - CALCIUM-VITAMIN D3 ORAL Take by mouth. - aspirin 81 mg chewable tablet Take 81 mg by mouth once daily. - Vitamin E, dl, acetate, 1,000 unit capsule Take 1,000 Units by mouth once daily. - insulin glargine,hum.rec.anl og (LANTUS SOLOSTAR U-100 INSULIN SUBCUTANEOUS) Inject subcutaneously. [...] and diastolic congest*11/12/2019 Encounter Status:Closed by LIBAN NAQVI RN on 11/17/23 [facility] [place] 11-09[facility]2023 [facility] VARSHA CHAUDHRY ([id number]) 1945 F Date Time Provider Department 11/09/23 TIERA SPANGLER [facility] During your visit today, we recorded the following information about you: Viola Saldivar 11/09/2023 9:12 AM Signed [facility] is requesting a signed order showing diagnosis for the Renal Function Panel lab that you ordered for her. The paper that the patient brought in to them doesn't have any diagnosis codes. Please fax over to: [phone] Patient is currently at the hospital to have this done . Patient has been identified by name and birthdate. Duration of symptoms: N/A Person calling: self Call patient at: on cell [phone] (home) Was an appointment scheduled: No Closing statement: Results or non-symptom based questions: Thank you for calling [facility], your call will be returned within the next business day. Tiera Ashton APRN.CNP 11/09/2023 11:42 AM Signed Order faxed Tiera Spangler APRN.SINTER PRESS OPERATOR Allergies As of Date: 11/09/2023 Noted Allergy Reaction ACETAMINOPHEN-CODEIN E 11/27/1999 14 - Other: See Comments BENZONATATE [...] 1 capsule by mouth once daily. - multivit,thx,calcium ,iron,mins (MULTIVITAMIN AND MINERAL ORAL) Take by mouth once daily. - CALCIUM-VITAMIN D3 ORAL Take by mouth. - aspirin 81 mg chewable tablet Take 81 mg by mouth once daily. - Vitamin E, dl, acetate, 1,000 unit capsule Take 1,000 Units by mouth once daily. - insulin glargine,hum.rec.anl og (LANTUS SOLOSTAR U-100 INSULIN SUBCUTANEOUS) Inject subcutaneously. [...] Status:Closed by TIERA SPANGLER on 11/09/23 [facility]HR[facility] ([id number]) 1945 F Date Time Provider Department 11/09/23 TIERA SPANGLER [facility] During your visit today, we recorded the following information about you: Brigitte Phelps OCCA 11/09/2023 1:33 PM Signed Faxed lab order for renal function panel to [facility] at [phone] per Tiera Spangler WATCH INSPECTOR FINAL MOVEMENT [facility]. Please fax order for renal panel to [phone] EFE Mckeon Allergies As of Date: 11/09/2023 Noted Allergy Reaction ACETAMINOPHEN-CODEIN E 11/27/1999 14 - Other: See Comments BENZONATATE [...] mouth every other day. - insulin lispro-aabc (LYSOFIA SHAHID) 100 unit/mL insulin pen Inject subcutaneously [...] 1 capsule by mouth once daily. - multivit,thx,calcium ,iron,mins (MULTIVITAMIN AND MINERAL ORAL) Take by mouth once daily. - CALCIUM-VITAMIN D3 ORAL Take by mouth. - aspirin 81 mg chewable tablet Take 81 mg by mouth once daily. - Vitamin E, dl, acetate, 1,000 unit capsule Take 1,000 Units by mouth once daily. - insulin glargine,hum.rec.anl og (LANTUS SOLOSTAR U-100 INSULIN SUBCUTANEOUS) Inject subcutaneously. [...] and diastolic congest*11/12/2019 Encounter Status:Closed by BRIGITTE PHELPS on 11/09/23 [facility] [place] 11-06-2023 [place] Telephone ([facility]) VARSHA CHAUDHRY ([id number]) 1945 F Date Time Provider Department 11/06/23 TIERA SPANGLER During your visit today, we recorded the following information about you: Candace Veliz 11/06/2023 4:25 PM Signed Took a call from Erika who works at [facility]. Erika was calling with [...] As of Date: 11/06/2023 Noted Allergy Reaction ACETAMINOPHEN-CODEIN E 11/27/1999 14 - Other: See Comments BENZONATATE [...] every other day. - insulin lispro-aabc (LYUMJEAngela SHAHID) 100 unit/mL insulin pen Inject subcutaneously [...] 1 capsule by mouth once daily. - multivit,thx,calcium ,iron,mins (MULTIVITAMIN AND MINERAL ORAL) Take by mouth once daily. - CALCIUM-VITAMIN D3 ORAL Take by mouth. - aspirin 81 mg chewable tablet Take 81 mg by mouth once daily. - Vitamin E, dl, acetate, 1,000 unit capsule Take 1,000 Units by mouth once daily. - insulin glargine,hum.rec.anl og (LANTUS SOLOSTAR U-100 INSULIN SUBCUTANEOUS) Inject subcutaneously. [...] Encounter Status:Closed by CANDACE VELIZ on 11/06/23 [facility] [place] 10-24-2023 [place] Telephone ([facility]) VARSHA CHAUDHRY ([id number]) 1945 F Date Time Provider Department 10/24/23 [facility] During your visit today, we recorded the following information about you: Tiera Spangler APRN.DORINA 10/24/2023 11:48 AM Signed Called pt to see if she completed repeat labs She did not She states she didn't receive order She has been ill for 1 week I asked she repeat labs next week once she is feeling better Will have order faxed again to [facility] and mailed to patient Tiera Spangler APRN.Akshat Woodruff 10/24/2023 12:17 PM Signed The requested document has been faxed to [phone]. Received a fax confirmation of OK on 10-24-23. The order has also been placed in the outgoing mail as well. Akshat Schaeffer Please mail order to patient and fax to Audra as well. [phone] Renal panel Irina Allen RN 11/01/2023 2:43 [...] coughing? Please get back to her on [phone] Pt has an answering machine Akshat Schaeffer [...] As of Date: 10/24/2023 Noted Allergy Reaction ACETAMINOPHEN-CODEIN E 11/27/1999 14 - Other: See Comments BENZONATATE [...] 1 capsule by mouth once daily. - multivit,thx,calcium ,iron,mins (MULTIVITAMIN AND MINERAL ORAL) Take by mouth once daily. - CALCIUM-VITAMIN D3 ORAL Take by mouth. - aspirin 81 mg chewable tablet Take 81 mg by mouth once daily. - Vitamin E, dl, acetate, 1,000 unit capsule Take 1,000 Units by mouth once daily. - insulin glargine,hum.rec.anl og (LANTUS SOLOSTAR U-100 INSULIN SUBCUTANEOUS) Inject subcutaneously. [...] Encounter Status:Closed by TIERA SPANGLER on 10/24/23 [facility] [place] 10-23-2023 [place] Telephone ([facility]) VARSHA CHAUDHRY ([id number]) 1945 F Date Time Provider Department 10/23/23 TIERA SPANGLER During your visit today, we recorded the following information about you: William Schaefferan 10/23/2023 10:01 AM Signed ----- Message from Tiera Spangler APRN.SINTER PRESS OPERATOR sent at 10/23/2023 8:57 AM EST ----- Please call [facility] and have repeat BUN and creatinine faxed over Tiera Spangler APRN.Akshat Woodruff 10/24/2023 10:15 AM Addendum I called the Medical Records department at [facility]. My call went to voicemail. I did not leave a message. I will try to call back @ [phone], Medical Records press 2, then 1. Akshat Moreno 10/24/2023 10:16 AM Signed I called but did not speak with nor leave a voicemail as it is the same as below. Akshat Moreno 10/24/2023 11:28 AM Signed I called and spoke with the staff at [facility] lab. I informed the staff of the below request and gave the fax number of [phone]. The lab staff told me that they have the lab results from 10/10 and they will fax them over shortly. Akshatmalika Schaeffer Allergies As of Date: 10/23/2023 Noted Allergy Reaction ACETAMINOPHEN-CODEIN E 11/27/1999 14 - Other: See Comments BENZONATATE [...] by mouth once daily. - insulin lispro-aabc (LYSOFIA SHAHID) 100 unit/mL insulin pen Inject subcutaneously [...] 1 capsule by mouth once daily. - multivit,thx,calcium ,iron,mins (MULTIVITAMIN AND MINERAL ORAL) Take by mouth once daily. - CALCIUM-VITAMIN D3 ORAL Take by mouth. - aspirin 81 mg chewable tablet Take 81 mg by mouth once daily. - Vitamin E, dl, acetate, 1,000 unit capsule Take 1,000 Units by mouth once daily. - insulin glargine,hum.rec.anl og (LANTUS SOLOSTAR U-100 INSULIN SUBCUTANEOUS) Inject subcutaneously. [...] Encounter Status:Closed by AKSHAT SCHAEFFER on 10/23/23 [facility] [place] 10-10-2023 [place] Telephone ([facility]) VARSHA CHAUDHRY ([id number]) 1945 F Date Time Provider Department 10/10/23 TIERA SPANGLER During your visit today, we recorded the following information about you: Liban Zuñiga, LLOYD 10/10/2023 2:48 PM Signed Patient?s identity has been confirmed by name and birthdate: Yes Call received from Lela at [facility] to report a critical value for [...] Patient will be leaving to go to [place] at 9 AM today. Her brother is in the hospital. She will return home after 3pm. If calling back before 9, please call: [phone] (home); if after 9AM, please use patient's spouse's cell # [phone] (she doesn't have a cell) Tiera Spangler APRN.CNP 10/11/2023 9:49 AM Signed Called pt re: below She feels well 93/44 this morning 93/48 yesterday Next cardiology follow up is Nov 072022 Decrease torsemide to 20mg daily Repeat labs in 1 week-fax order to [phone] Call for any swelling, increased weight or [...] if Varsha had her labs done at [facility] as of yet. Nestor told me that Varsha has been sick with a cough/cold of some sort that started a few days before and is currently still sick. Nestor states that once Varsha is feeling better, she will get the labs done as ordered. Akshat Schaeffer Allergies As of Date: 10/10/2023 Noted Allergy Reaction ACETAMINOPHEN-CODEIN E 11/27/1999 14 - Other: See Comments BENZONATATE [...] by mouth once daily. - insulin lispro-aabc (LYUMTORIN SHAHID) 100 unit/mL insulin pen Inject subcutaneously [...] 1 capsule by mouth once daily. - multivit,thx,calcium ,iron,mins (MULTIVITAMIN AND MINERAL ORAL) Take by mouth once daily. - CALCIUM-VITAMIN D3 ORAL Take by mouth. - aspirin 81 mg chewable tablet Take 81 mg by mouth once daily. - Vitamin E, dl, acetate, 1,000 unit capsule Take 1,000 Units by mouth once daily. - insulin glargine,hum.rec.anl og (LANTUS SOLOSTAR U-100 INSULIN SUBCUTANEOUS) Inject subcutaneously. [...] 3 10/11/2023 (more content not included)... [facility] [place] VARSHA CHAUDHRY ([id number]) 1945 F Date Time Provider Department 10/09/23 TIERA SPANGLER During your visit today, we recorded the following information about you: Elva Beckford 10/09/2023 3:48 PM Signed Varsha Chaudhry is calling Tiera Spangler APRN.SINTER PRESS OPERATOR today needs labs ordered and faxed over to [facility]. F: [phone] No chief complaint on file. Patient has been identified by name and birthdate. Duration of symptoms: N/A Person calling: self Call patient at: at home [phone] (home) [phone] (cell) Was an appointment scheduled: No Closing statement: Results or non-symptom based questions: Thank you for calling [facility], your call will be returned within the next business day. Akshat Kaufman 10/09/2023 4:10 PM Signed The requested document has been faxed to [phone] . Received a fax confirmation of OK on 10/09/23. Akshat Schaeffer Allergies As of Date: 10/09/2023 Noted Allergy Reaction ACETAMINOPHEN-CODEIN E 11/27/1999 14 - Other: See Comments BENZONATATE 11/27/1999 11 - Vomiting CEPHALEXIN 11/27/1999 2 - Rash CIPROFLOXACIN 11/12/2019 14 - Other: See Comments CLINDAMYCIN 11/12/2019 14 - Other: See Comments PENICILLINS 11/07/2014 14 - Other: See Comments Date Reviewed: 06/13/2023 Reviewed by: Viola Vidal MA - Fully Assessed Reason for Visit: Lab Orders [2458] Prescriptions as of 10/09/2023 - insulin lispro-aabc (LYUMJEAngela KWIKPEN) 100 unit/mL [...] 1 capsule by mouth once daily. - multivit,thx,calcium ,iron,mins (MULTIVITAMIN AND MINERAL ORAL) Take by mouth once daily. - CALCIUM-VITAMIN D3 ORAL Take by mouth. - aspirin 81 mg chewable tablet Take 81 mg by mouth once daily. - Vitamin E, dl, acetate, 1,000 unit capsule Take 1,000 Units by mouth once daily. - insulin glargine,hum.rec.anl og (LANTUS SOLOSTAR U-100 INSULIN SUBCUTANEOUS) Inject subcutaneously. [...] Status:Closed by AKSHAT SCHAEFFER on 10/09/23 [facility] BNPon 04-26-2023 Natriuretic peptide B (Bld) [Mass/Vol] 775.0 pg/mL Normal <=1,800.0 [facility] Comment on above: Performed By: #### C BC #### [facility] [address] [place] [address] Dr. Elaina Garnett BUNon 04-26-2023 Urea nitrogen [Mass/Vol] 68.0 mg/dL Critically high 7.0-18.0 [facility] Comment on above: Performed By: #### R SPLUS #### [facility] [address] [address] [address] Elaina Garnett CBC AUTO DIFFon 04-26-2023 BASO # 0.1 103/ul Normal 0.0-0.1 [facility] Comment on above: Performed By: #### C BC #### [facility] [address] [place] [address] Dr. Elaina Garnett Basophils/100 WBC (Bld) 1.0 % Normal 0.2-2.0 [facility] Comment on above: Performed By: #### C BC #### [facility] [address] [place] [address] Dr. Elaina Garnett EO # 0.3 103/ul Normal 0.0-0.7 [facility] Comment on above: Performed By: #### C BC #### [facility] [address] [place] [address] Dr. Elaina Garnett Eosinophils/100 WBC (Bld) 2.8 % Normal 0.9-7.0 [facility] Comment on above: Performed By: #### C BC #### [facility] [address] [place] [address] Dr. Elaina Garnett Erythrocyte distribution width (RBC) [Ratio] 13.9 % Normal 11.0-15.0 [facility] Comment on above: Performed By: #### C BC #### [facility] [address] [place] [address] Dr. Elaina Garnett Hematocrit (Bld) [Volume fraction] 36.8 % Normal 36.0-48.0 [facility] Comment on above: Performed By: #### C BC #### [facility] [address] [place] [address] Dr. Elaina Garnett Hemoglobin (Bld) [Mass/Vol] 12.1 g/dL Normal 12.0-16.0 [facility] Comment on above: Performed By: #### C BC #### [facility] [address] [place] [address] Dr. Elaina Garnett IG # 0.03 10e3/ul Normal 0.00-0.03 [facility] Comment on above: Performed By: #### C BC #### [facility] [address] [place] [address] Dr. Elaina Garnett IG % 0.3 % Normal 0.0-0.5 [facility] Comment on above: Performed By: #### C BC #### [facility] [address] [place] [address] Dr. Elaina Garnett LYMPH # 2.5 103/ul Normal 1.2-3.8 [facility] Comment on above: Performed By: #### C BC #### [facility] [address] [place] [address] Dr. Elaina Garnett Lymphocytes/100 WBC (Bld) 27.7 % Normal 20.5-60.0 [facility] Comment on above: Performed By: #### C BC #### [facility] [address] [place] [address] Dr. Elaina Garnett MANUAL DIFF REQ NO Normal [facility] Comment on above: Performed By: #### C BC #### [facility] [address] [place] [address] Dr. Elaina Garnett MCH (RBC) [Entitic mass] 29.7 pg Normal 26.7-34.0 [facility] Comment on above: Performed By: #### C BC #### [facility] [address] [place] [address] Dr. Elaina Garnett MCHC (RBC) [Mass/Vol] 32.9 g/dL Normal 29.9-35.2 [facility] Comment on above: Performed By: #### C BC #### [facility] [address] [place] [address] Dr. Elania Garnett MCV (RBC) [Entitic vol] 90.4 fL Normal 81.0-99.0 [facility] Comment on above: Performed By: #### C BC #### [facility] [address] [place] [address] Dr. Elaina Garnett MONO # 1.0 103/ul Critically high 0.3-0.8 [facility] Comment on above: Performed By: #### C BC #### [facility] [address] [place] [address] Dr. Elaina Garnett Monocytes/100 WBC (Bld) 10.7 % Normal 1.7-12.0 [facility] Comment on above: Performed By: #### C BC #### [facility] [address] [place] [address] Dr. Elaina Garnett NEUT # 5.1 103/ul Normal 1.4-6.5 [facility] [facility] Comment on above: Performed By: #### C BC #### [facility] [address] [place] [address] Dr. Elaina Garnett Neutrophils/100 WBC (Bld) 57.5 % Normal 43.0-75.0 [facility] Comment on above: Performed By: #### C BC #### [facility] [address] [place] [address] Dr. Elaina Garnett Platelet mean volume (Bld) [Entitic vol] 9.4 fL Critically low 9.5-13.5 [facility] Comment on above: Performed By: #### C BC #### [facility] [address] [place] [address] Dr. Elaina Garnett PLT 258 103/ul Normal 150-450 [facility] Comment on above: Performed By: #### C BC #### [facility] [address] [place] [address] Dr. Elaina Garnett RBC 4.07 106/ul Critically low 4.20-5.40 [facility] Comment on above: Performed By: #### C BC #### [facility] [address] [place] [address] Dr. Elaina Garnett WBC 8.9 103/ul Normal 4.0-11.0 [facility] Comment on above: Performed By: #### C BC #### [facility] [address] [place] [address] Dr. Elaina Garnett CREATININEon 04-26-2023 Creatinine [Mass/Vol] 1.69 mg/dL Critically high 0.55-1.02 [facility] Comment on above: Performed By: #### C BC #### [facility] [address] [place] [address] Dr. Elaina Garnett EGFR-AF WALLISIAN 35 mL/min/1.73m2 Critically low >=60 [facility] Comment on above: Performed By: #### C BC #### [facility] [address] [place] [address] Dr. Elaina Garnett EGFR-NON AF WALLISIAN 29 mL/min/1.73m2 Critically low >=60 [facility] Comment on above: Performed By: #### C BC #### [facility] [address] [place] [address] Dr. Elaina Garnett ELECTROLYTESon 04-26-2023 Anion gap [Moles/Vol] 13.2 mmol/L Normal [facility] Comment on above: Performed By: #### R SPLUS #### [facility] [address] [address] [address] Elaina Garnett Chloride [Moles/Vol] 106 mmol/L Normal 98-107 [facility] Comment on above: Performed By: #### R SPLUS #### [facility] [address] [address] [address] Elaina Garnett CO2 [Moles/Vol] 26.3 mmol/L Normal 21.0-32.0 [facility] Comment on above: Performed By: #### R SPLUS #### [facility] [address] [place] [address] Dr. Elaina Garnett Potassium [Moles/Vol] 5.5 mmol/L Critically high 3.5-5.1 [facility] Comment on above: Performed By: #### R SPLUS #### [facility] [address] [place] [address] Dr. Elaina Garnett Sodium [Moles/Vol] 140 mmol/L Normal 136-145 [facility] Comment on above: Performed By: #### R SPLUS #### [facility] [address] [place] [address] Dr. Elaina Garnett LIVER PROFILEon 04-26-2023 Albumin [Mass/Vol] 3.4 g/dL Normal 3.4-5.0 [facility] Comment on above: Performed By: #### R SPLUS #### [facility] [address] [place] [address] Dr. Elaina Garnett Albumin/Globulin [Mass ratio] 0.9 {ratio} Normal [facility] Comment on above: Performed By: #### R SPLUS #### [facility] [address] [place] [address] Dr. Elaina Garnett ALP [Catalytic activity/Vol] 91 U/L Normal 46-116 [facility] Comment on above: Performed By: #### R SPLUS #### [facility] [address] [address] [address] Elaina Garnett ALT [Catalytic activity/Vol] 18 U/L Normal 14-59 [facility] Comment on above: Performed By: #### R SPLUS #### [facility] [address] [place] [address] Dr. Elaina Garnett AST [Catalytic activity/Vol] 16 U/L Normal 15-37 [facility] Comment on above: Performed By: #### R SPLUS #### [facility] [address] [place] [address] Dr. Elaina Garnett BILI, CONJUGATED 0.1 mg/dL Normal 0.0-0.2 [facility] Comment on above: Performed By: #### R SPLUS #### [facility] [address] [place] [address] Dr. Elaina Garnett Bilirubin [Mass/Vol] 0.6 mg/dL Normal 0.2-1.0 [facility] Comment on above: Performed By: #### R SPLUS #### [facility] [address] [place] [address] Dr. Elaina Garnett Globulin (S) [Mass/Vol] 4.0 g/dL Normal [facility] Comment on above: Performed By: #### R SPLUS #### [facility] [address] [place] [address] Dr. Elaina Garnett Protein [Mass/Vol] 7.4 g/dL Normal 6.4-8.2 [facility] Comment on above: Performed By: #### R SPLUS #### [facility] [address] [place] [address] Dr. Elaina Garnett ER URINE PROFILEon 3 Bilirubin Ql (U) Negative Normal NEGATIVE [facility] Comment on above: Performed By: #### R SPLUS #### [facility] [address] [place] [address] Dr. Elaina Garnett Clarity (U) CLEAR Normal CLEAR [facility] Comment on above: Performed By: #### R SPLUS #### [facility] [address] [place] [address] Dr. Elaina Garnett Color (U) LT. YELLOW Normal YELLOW [facility] Comment on above: Performed By: #### R SPLUS #### [facility] [address] [place] [address] Dr. Elaina MEEHAN A micrscopic examination will be performed if indicated. Normal [facility] Comment on above: Performed By: #### R SPLUS #### [facility] [address] [place] [address] Dr. Elaina Garnett Glucose Ql (U) Negative Normal NEGATIVE [facility] Comment on above: Performed By: #### R SPLUS #### [facility] [address] [place] [address] Dr. Elaina Garnett Hemoglobin Ql (U) Negative Normal NEGATIVE [facility] Comment on above: Performed By: #### R SPLUS #### [facility] [address] [place] [address] Dr. Elaina Garnett Ketones Ql (U) TRACE Abnormal NEGATIVE [facility] Comment on above: Performed By: #### R SPLUS #### [facility] [address] [place] [address] Dr. Elaina Garnett LEUKOCYTES Negative Normal NEGATIVE [facility] Comment on above: Performed By: #### R SPLUS #### [facility] [address] [place] [address] Dr. Elaina Garnett Nitrite Ql (U) Negative Normal NEGATIVE [facility] Comment on above: Performed By: #### R SPLUS #### [facility] [address] [place] [address] Dr. Elaina Garnett pH (U) 5.0 [pH] Normal 5-9 [facility] Comment on above: Performed By: #### R SPLUS #### [facility] [address] [place] [address] Dr. Elaina Garnett Protein (U) [Mass/Vol] 100 mg/dL Abnormal NEGAT DULCE/ TRACE [facility] Comment on above: Performed By: #### R SPLUS #### [facility] [address] [place] [address] Dr. Elaina Garnett SPEC GRAVITY 1.020 Normal 1.005-<=1.025 [facility] Comment on above: Performed By: #### R SPLUS #### [facility] [address] [place] [address] Dr. Elaina Garnett UR MICRO IND NOT INDICATED Normal [facility] Comment on above: Performed By: #### R SPLUS #### [facility] [address] [place] [address] Dr. Elaina Garnett Urobilinogen Qn (U) 0.2 {Danny'U}/dL Normal 0.2 - 1. 0 [facility] Comment on above: Performed By: #### R SPLUS #### [facility] [address] [place] [address] Dr. Elaina Garnett RESPIRATORY PANEL PLUSon Adenovirus Not detected Normal NOT DETECTED [facility] Comment on above: Performed By: #### R SPLUS #### [facility] [address] [place] [address] Dr. Elaina Camargo. Parapertusis Not detected Normal NOT DETECTED [facility] Comment on above: Performed By: #### R SPLUS #### [facility] [address] [place] [address] Dr. Elaina Watson Pertussis Not detected Normal NOT DETECTED [facility] Comment on above: Performed By: #### R SPLUS #### [facility] [address] [place] [address] Dr. Elaina Garnett Chlamydia Pneumoniae Not detected Normal NOT DETECTED [facility] Comment on above: Performed By: #### R SPLUS #### [facility] [address] [place] [address] Dr. Elaina Garnett Coronavirus 229E Not detected Normal NOT DETECTED [facility] Comment on above: Performed By: #### R SPLUS #### [facility] [address] [place] [address] Dr. Elaina Garnett Coronavirus HKU1 Not detected Normal NOT DETECTED [facility] Comment on above: Performed By: #### R SPLUS #### [facility] [address] [place] [address] Dr. Elaina Garnett Coronavirus NL63 Not detected Normal NOT DETECTED [facility] Comment on above: Performed By: #### R SPLUS #### [facility] [address] [place] [address] Dr. Elaina Garnett Coronavirus OC43 Not detected Normal NOT DETECTED [facility] Comment on above: Performed By: #### R SPLUS #### [facility] [address] [address] [address] Elaina Garnett Influenza A H1 Not detected Normal NOT DETECTED [facility] Comment on above: Performed By: #### R SPLUS #### [facility] [address] [place] [address] Dr. Elaina Garnett Influenza A H1 2009 Not detected Normal NOT DETECTED [facility] Comment on above: Performed By: #### R SPLUS #### [facility] [address] [place] [address] Dr. Elaina Garnett Influenza A H3 Not detected Normal NOT DETECTED [facility] Comment on above: Performed By: #### R SPLUS #### [facility] [address] [place] [address] Dr. Elaina Garnett Influenza B Not detected Normal NOT DETECTED [facility] Comment on above: Performed By: #### R SPLUS #### [facility] [address] [place] [address] Dr. Elaina Garnett Metapneumovirus Not detected Normal NOT DETECTED [facility] Comment on above: Performed By: #### R SPLUS #### [facility] [address] [place] [address] Dr. Elaina Garnett Mycoplas. Pneumoniae Not detected Normal NOT DETECTED [facility] Comment on above: Performed By: #### R SPLUS #### [facility] [address] [address] [address] Elaina Garnett Parainfluenza 1 Not detected Normal NOT DETECTED [facility] Comment on above: Performed By: #### R SPLUS #### [facility] [address] [place] [address] Dr. Elaina Garnett Parainfluenza 2 Not detected Normal NOT DETECTED [facility] Comment on above: Performed By: #### R SPLUS #### [facility] [address] [place] [address] Dr. Elaina Garnett Parainfluenza 3 Not detected Normal NOT DETECTED [facility] Comment on above: Performed By: #### R SPLUS #### [facility] [address] [place] [address] Dr. Elaina Garnett Parainfluenza 4 Not detected Normal NOT DETECTED [facility] Comment on above: Performed By: #### R SPLUS #### [facility] [address] [place] [address] Dr. Elaina Garnett Rhino/Enterovirus Not detected Normal NOT DETECTED [facility] Comment on above: Performed By: #### R SPLUS #### [facility] [address] [place] [address] Dr. Elaina Garnett RP2 Header 1 RESPIRATORY PANEL: VIRUSES Normal [facility] Comment on above: Performed By: #### R SPLUS #### [facility] [address] [place] [address] Dr. Elaina Garnett RP2 Header 2 RESPIRATORY PANEL: BACTERIA Normal [facility] Comment on above: Performed By: #### R SPLUS #### [facility] [address] [place] [address] Dr. Elaina Garnett RSV Not detected Normal NOT DETECTED [facility] Comment on above: Performed By: #### R SPLUS #### [facility] [address] [place] [address] Dr. Elaina Garnett SARS-CoV-2 (COVID-19) RNA BARB+probe Ql (Unsp spec) Not detected Normal NOT DETECTED [facility] Comment on above: Performed By: #### R SPLUS #### [facility] [address] [place] [address] Dr. Elaina Garnett XR CHEST 1 Von 03-26-2023 XR CHEST 1 V EXAMINATION: XR CHEST 1 V, , 03/25/2023 10:27 PM EDT INDICATION: COUGH HISTORY: Ordering Provider Reason for Exam: Technologist Note: Additional: COMPARISON: Chest x-ray dated 11/04/2022. TECHNIQUE: Chest x-ray: One view. FINDINGS: No pneumothorax, pleural effusion or focal airspace consolidation. Heart is normal in size. Bony thorax is unremarkable. IMPRESSION: No acute cardiopulmonary process. Electronically authenticated by: JUAN GIVENSNATALI Date: 2023-03-25 23:48 Normal [facility] CARDIAC MIKE ADMITon 023 CK [Catalytic activity/Vol] 219 U/L Critically high 26-192 [facility] Comment on above: Performed By: #### C BC #### [facility] [address] [place] [address] Dr. Elaian Garnett CK.MB [Mass/Vol] 1.21 ng/mL Normal <=3.60 [facility] Comment on above: Performed By: #### C BC #### [facility] [address] [place] [address] Dr. Elaina Garnett HSTROP 17.4 pg/mL Normal 4.0-51.3 [facility] Comment on above: Result Comment: CUT- OFF POINTS HAVE BEEN ESTABLISHED BASED ON THE FOURTH UNIVERSAL DEFINITIONS OF MYOCARDIAL INFARCTION. THE UPPER REFERENCE LIMIT (URL) OF TROPONIN, DEFINED THE 99TH PERCENTILE OF cTnI DISTRIBUTION IN A REFERENCE POPULATION, HAS BEEN CONFIRMED THE DECISION THRESHOLD FOR DE DIAGNOSIS. Performed By: #### C BC #### [facility] [address] [place] [address] Dr. Elaina Garnett TAO 332 ng/mL Critically high 9-82 [facility] Comment on above: Performed By: #### C BC #### [facility] [address] [place] [address] Dr. Elaina Garnett CBC AUTO DIFFon 03-25-2023 BASO # 0.1 103/ul Normal 0.0-0.1 [facility] Comment on above: Performed By: #### C BC #### [facility] [address] [place] [address] Dr. Elaina Garnett Basophils/100 WBC (Bld) 0.6 % Normal 0.2-2.0 [facility] Comment on above: Performed By: #### C BC #### [facility] [address] [place] [address] Dr. Elaina Garnett EO # 0.2 103/ul Normal 0.0-0.7 [facility] Comment on above: Performed By: #### C BC #### [facility] [address] [place] [address] Dr. Elaina Garnett Eosinophils/100 WBC (Bld) 2.0 % Normal 0.9-7.0 [facility] Comment on above: Performed By: #### C BC #### [facility] [address] [place] [address] Dr. Elaina Garnett Erythrocyte distribution width (RBC) [Ratio] 12.9 % Normal 11.0-15.0 [facility] Comment on above: Performed By: #### C BC #### [facility] [address] [place] [address] Dr. Elaina Garnett Hematocrit (Bld) [Volume fraction] 33.6 % Critically low 36.0-48.0 [facility] Comment on above: Performed By: #### C BC #### [facility] [address] [place] [address] Dr. Elaina Garnett Hemoglobin (Bld) [Mass/Vol] 11.3 g/dL Critically low 12.0-16.0 [facility] Comment on above: Performed By: #### C BC #### [facility] [address] [place] [address] Dr. Elaina Garnett IG # 0.04 10e3/ul Critically high 0.00-0.03 [facility] Comment on above: Performed By: #### C BC #### [facility] [address] [place] [address] Dr. Elaina Garnett IG % 0.4 % Normal 0.0-0.5 [facility] Comment on above: Performed By: #### C BC #### [facility] [address] [place] [address] Dr. Elaina Garnett LYMPH # 1.8 103/ul Normal 1.2-3.8 [facility] Comment on above: Performed By: #### C BC #### [facility] [address] [place] [address] Dr. Elaina Garnett Lymphocytes/100 WBC (Bld) 19.5 % Critically low 20.5-60.0 [facility] Comment on above: Performed By: #### C BC #### [facility] [address] [place] [address] Dr. Elaina Garnett MANUAL DIFF REQ NO Normal [facility] Comment on above: Performed By: #### C BC #### [facility] [address] [place] [address] Dr. Elaina Garnett MCH (RBC) [Entitic mass] 30.8 pg Normal 26.7-34.0 [facility] Comment on above: Performed By: #### C BC #### [facility] [address] [place] [address] Dr. Elaina Garnett MCHC (RBC) [Mass/Vol] 33.6 g/dL Normal 29.9-35.2 [facility] Comment on above: Performed By: #### C BC #### [facility] [address] [place] [address] Dr. Elaina Garnett MCV (RBC) [Entitic vol] 91.6 fL Normal 81.0-99.0 [facility] Comment on above: Performed By: #### C BC #### [facility] [address] [place] [address] Dr. Elaina Garnett MONO # 1.9 103/ul Critically high 0.3-0.8 [facility] Comment on above: Performed By: #### C BC #### [facility] [address] [place] [address] Dr. Elaina Garnett Monocytes/100 WBC (Bld) 19.7 % Critically high 1.7-12. 0 [facility] Comment on above: Performed By: #### C BC #### [facility] [address] [place] [address] Dr. Elaina Garnett NEUT # 5.4 103/ul Normal 1.4-6.5 [facility] Comment on above: Performed By: #### C BC #### [facility] [address] [place] [address] Dr. Elaina Garnett Neutrophils/100 WBC (Bld) 57.8 % Normal 43.0-75.0 [facility] Comment on above: Performed By: #### C BC #### [facility] [address] [place] [address] Dr. Elaina Garnett Platelet mean volume (Bld) [Entitic vol] 9.7 fL Normal 9.5-13.5 [facility] Comment on above: Performed By: #### C BC #### [facility] [address] [address] [address] Elaina Garnett PLT 272 103/ul Normal 150-450 [facility] Comment on above: Performed By: #### C BC #### [facility] [address] [place] [address] Dr. Elaina Garnett RBC 3.67 106/ul Critically low 4.20-5.40 [facility] Comment on above: Performed By: #### C BC #### [facility] [address] [place] [address] Dr. Elaina Garnett WBC 9.4 103/ul Normal 4.0-11.0 [facility] Comment on above: Performed By: #### C BC #### [facility] [address] [place] [address] Dr. Elaina Garnett LACTATE/LACTIC ACIDon 2022 Lactate [Moles/Vol] 0.7 mmol/L Normal 0.4-2.0 [facility] Comment on above: Performed By: #### C BC #### [facility] [address] [place] [address] Dr. Elaina Garnett PROF CHEM 8 (BAS METB)on Anion gap [Moles/Vol] 13.5 mmol/L Normal [facility] Comment on above: Performed By: #### C BC #### [facility] [address] [place] [address] Dr. Elaina Garnett Calcium [Mass/Vol] 9.0 mg/dL Normal 8.5-10.1 [facility] Comment on above: Performed By: #### C BC #### [facility] [address] [place] [address] Dr. Elaina Garnett Chloride [Moles/Vol] 109 mmol/L Critically high 98-107 [facility] Comment on above: Performed By: #### C BC #### [facility] [address] [address] [address] Elaina Garnett CO2 [Moles/Vol] 21.9 mmol/L Normal 21.0-32.0 [facility] Comment on above: Performed By: #### C BC #### [facility] [address] [address] [address] Elaina Garnett Creatinine [Mass/Vol] 2.03 mg/dL Critically high 0.55-1.02 [facility] Comment on above: Performed By: #### C BC #### [facility] [address] [place] [address] Dr. Elaina Garnett EGFR-AF WALLISIAN 29 mL/min/1.73m2 Critically low >=60 [facility] Comment on above: Performed By: #### C BC #### [facility] [address] [place] [address] Dr. Elaina Garnett EGFR-NON AF WALLISIAN 24 mL/min/1.73m2 Critically low >=60 [facility] Comment on above: Performed By: #### C BC #### [facility] [address] [place] [address] Dr. Elaina Garnett Glucose [Mass/Vol] 72 mg/dL Critically low 74-106 [facility] Comment on above: Performed By: #### C BC #### [facility] [address] [place] [address] Dr. Elaina Garnett Potassium [Moles/Vol] 4.4 mmol/L Normal 3.5-5.1 [facility] Comment on above: Performed By: #### C BC #### [facility] [address] [place] [address] Dr. Elaina Garnett Sodium [Moles/Vol] 140 mmol/L Normal 136-145 [facility] Comment on above: Performed By: #### C BC #### [facility] [address] [place] [address] Dr. Elaina Garnett Urea nitrogen [Mass/Vol] 70.0 mg/dL Critically high 7.0-18.0 [facility] Comment on above: Performed By: #### C BC #### [facility] [address] [address] [address] Elaina Garnett Urea nitrogen/Creatinine [Mass ratio] 34.5 mg/mg Normal [facility] Comment on above: Performed By: #### C BC #### [facility] [address] [address] [address] Elaina Garnett CBC panel Auto (Bld)on 01-10 Erythrocyte distribution width (RBC) [Ratio] 13.3 % 11.5 - 15.0 % [facility] Hematocrit (Bld) [Volume fraction] 39.4 % 36.0 - 46.0 % [facility] Hemoglobin (Bld) [Mass/Vol] 12.5 g/dL 11.5 - 15.5 g/dL [facility] MCH (RBC) [Entitic mass] 29.1 pg 26.0 - 34.0 pg [facility] MCHC (RBC) [Mass/Vol] 31.7 g/dL 30.5 - 36.0 g/dL [facility] MCV (RBC) [Entitic vol] 91.6 fL 80.0 - 100.0 fL [facility] Nucleated RBC (Bld) [#/Vol] <0.01 k/uL [facility] Platelet mean volume (Bld) [Entitic vol] 10.4 fL 9.0 - 12.7 fL [facility] Platelets (Bld) [#/Vol] 256 10*3/uL 150 - 400 k/uL [facility] RBC (Bld) [#/Vol] 4.30 10*6/uL 3.90 - 5.2 0 m/uL [facility] WBC (Bld) [#/Vol] 7.54 10*3/uL 3.70 - 11. 00 k/uL [facility] PTH INTACT BLDon 01-10-2023 Parathyrin.intact [Mass/Vol] 65 pg/mL 15 - 65 pg/mL [facility] Renal function 2000 panelon 01-10-2023 Albumin [Mass/Vol] 4.3 g/dL 3.9 - 4.9 g/dL [facility] Anion gap [Moles/Vol] 12 mmol/L 9 - 18 mmol/L [facility] Calcium [Mass/Vol] 9.9 mg/dL 8.5 - 10. 2 mg/dL [facility] Chloride [Moles/Vol] 102 mmol/L 97 - 10 5 mmol/L [facility] CO2 [Moles/Vol] 24 mmol/L 22 - 30 mmol/L [facility] Creatinine [Mass/Vol] 2.00 mg/dL High 0.58 - 0.96 mg/dL [facility] Estimated Glomerular Filtration Rate 25 mL/min/1.73m Low >=60 mL/min/1.73m [facility] Glucose [Mass/Vol] 309 mg/dL High 74 - 99 mg/dL [facility] Phosphate [Mass/Vol] 4.2 mg/dL 2.7 - 4 .8 mg/dL [facility] Potassium [Moles/Vol] 4.9 mmol/L 3.7 - 5.1 mmol/L [facility] Sodium [Moles/Vol] 138 mmol/L 136 - 144 mmol/L [facility] Urea nitrogen [Mass/Vol] 81 mg/dL High 7 - 21 mg/dL [facility] CARDIAC MIKE 3-6on 2 CK [Catalytic activity/Vol] 107 U/L Normal 26-192 [facility] Comment on above: Performed By: #### C MREP #### [facility] [address] [place] [address] Dr. Elaina Garnett CK.MB [Mass/Vol] 2.62 ng/mL Normal <=3.[address] [facility] Comment on above: Performed By: #### C MREP #### [facility] [address] [place] [address] Dr. Elaina Garnett HSTROP 9.0 pg/mL Normal 4.0-51.3 [facility] Comment on above: Result Comment: CUT- OFF POINTS HAVE BEEN ESTABLISHED BASED ON THE FOURTH UNIVERSAL DEFINITIONS OF MYOCARDIAL INFARCTION. THE UPPER REFERENCE LIMIT (URL) OF TROPONIN, DEFINED THE 99TH PERCENTILE OF cTnI DISTRIBUTION IN A REFERENCE POPULATION, HAS BEEN CONFIRMED THE DECISION THRESHOLD FOR DE DIAGNOSIS. Performed By: #### C MREP #### [facility] [address] [address] [address] Elaina Garnett CBC AUTO DIFFon 11-05-2022 BASO # 0.1 103/ul Normal 0.0-0.1 [facility] Comment on above: Performed By: #### C BC #### [facility] [address] [place] [address] Dr. Elaina Garnett Basophils/100 WBC (Bld) 0.6 % Normal 0.2-2.0 [facility] Comment on above: Performed By: #### C BC #### [facility] [address] [place] [address] Dr. Elaina Garnett EO # 0.2 103/ul Normal 0.0-0.7 [facility] Comment on above: Performed By: #### C BC #### [facility] [address] [place] [address] Dr. Elaina Garnett Eosinophils/100 WBC (Bld) 2.1 % Normal 0.9-7.0 [facility] Comment on above: Performed By: #### C BC #### [facility] [address] [place] [address] Dr. Elaina Garnett Erythrocyte distribution width (RBC) [Ratio] 13.2 % Normal 11.0-15.0 [facility] Comment on above: Performed By: #### C BC #### [facility] [address] [place] [address] Dr. Elaina Garnett Hematocrit (Bld) [Volume fraction] 37.1 % Normal 36.0-48.0 [facility] Comment on above: Performed By: #### C BC #### [facility] [address] [place] [address] Dr. Elaina Garnett Hemoglobin (Bld) [Mass/Vol] 12.4 g/dL Normal 12.0-16.0 [facility] Comment on above: Performed By: #### C BC #### [facility] [address] [place] [address] Dr. Elaina Garnett IG # 0.02 10e3/ul Normal 0.00-0.03 [facility] Comment on above: Performed By: #### C BC #### [facility] [address] [place] [address] Dr. Elaina Garnett IG % 0.2 % Normal 0.0-0.5 [facility] Comment on above: Performed By: #### C BC #### [facility] [address] [place] [address] Dr. Elaina Garnett LYMPH # 2.0 103/ul Normal 1.2-3.8 [facility] Comment on above: Performed By: #### C BC #### [facility] [address] [place] [address] Dr. Elaina Garnett Lymphocytes/100 WBC (Bld) 23.4 % Normal 20.5-60.0 [facility] Comment on above: Performed By: #### C BC #### [facility] [address] [place] [address] Dr. Elaina Garnett MANUAL DIFF REQ NO Normal [facility] Comment on above: Performed By: #### C BC #### [facility] [address] [place] [address] Dr. Elaina Garnett MCH (RBC) [Entitic mass] 29.8 pg Normal 26.7-34.0 [facility] Comment on above: Performed By: #### C BC #### [facility] [address] [place] [address] Dr. Elaina Garnett MCHC (RBC) [Mass/Vol] 33.4 g/dL Normal 29.9-35.2 [facility] Comment on above: Performed By: #### C BC #### [facility] [address] [place] [address] Dr. Elaina Garnett MCV (RBC) [Entitic vol] 89.2 fL Normal 81.0-99.0 [facility] Comment on above: Performed By: #### C BC #### [facility] [address] [place] [address] Dr. Elaina Garnett MONO # 1.1 103/ul Critically high 0.3-0.8 [facility] Comment on above: Performed By: #### C BC #### [facility] [address] [place] [address] Dr. Elaina Garnett Monocytes/100 WBC (Bld) 12.1 % Critically high 1.7-12. 0 [facility] Comment on above: Performed By: #### C BC #### [facility] [address] [place] [address] Dr. Elaina Garnett NEUT # 5.4 103/ul Normal 1.4-6.5 [facility] Comment on above: Performed By: #### C BC #### [facility] [address] [place] [address] Dr. Elaina Garnett Neutrophils/100 WBC (Bld) 61.6 % Normal 43.0-75.0 [facility] Comment on above: Performed By: #### C BC #### [facility] [address] [place] [address] Dr. Elaina Garnett Platelet mean volume (Bld) [Entitic vol] 10.2 fL Normal 9.5-13.5 [facility] Comment on above: Performed By: #### C BC #### [facility] [address] [place] [address] Dr. Elaina Garnett PLT 202 103/ul Normal 150-450 [facility] Comment on above: Performed By: #### C BC #### [facility] [address] [place] [address] Dr. Elaina Garnett RBC 4.16 106/ul Critically low 4.20-5.40 [facility] Comment on above: Performed By: #### C BC #### [facility] [address] [place] [address] Dr. Elaina Garnett WBC 8.7 103/ul Normal 4.0-11.0 [facility] Comment on above: Performed By: #### C BC #### [facility] [address] [place] [address] Dr. Elaina Garnett POINT OF CARE GLUCOSEon 10-27 Glucose [Mass/Vol] 183 mg/dL Critically high 74-106 [facility] Comment on above: Performed By: #### C MP #### [facility] [address] [place] [address] Dr. Elaina Garnett PROF 14(COMP METB)on 022 Albumin [Mass/Vol] 3.0 g/dL Critically low 3.4-5.0 [facility] Comment on above: Performed By: #### C MP #### [facility] [address] [place] [address] Dr. Elaina Garnett Albumin/Globulin [Mass ratio] 0.8 {ratio} Normal [facility] Comment on above: Performed By: #### C MP #### [facility] [address] [place] [address] Dr. Elaina Garnett ALP [Catalytic activity/Vol] 81 U/L Normal 46-116 [facility] Comment on above: Performed By: #### C MP #### [facility] [address] [place] [address] Dr. Elaina Garnett ALT [Catalytic activity/Vol] 13 U/L Critically low 14-59 [facility] Comment on above: Performed By: #### C MP #### [facility] [address] [place] [address] Dr. Elaina Garnett Anion gap [Moles/Vol] 13.0 mmol/L Normal [facility] Comment on above: Performed By: #### C MP #### [facility] [address] [place] [address] Dr. Elaina Garnett AST [Catalytic activity/Vol] 17 U/L Normal 15-37 [facility] Comment on above: Performed By: #### C MP #### [facility] [address] [place] [address] Dr. Elaina Garnett Bilirubin [Mass/Vol] 0.5 mg/dL Normal 0.2-1.0 [facility] Comment on above: Performed By: #### C MP #### [facility] [address] [place] [address] Dr. Elaina Garnett Calcium [Mass/Vol] 8.3 mg/dL Critically low 8.5-10.1 [facility] Comment on above: Performed By: #### C MP #### [facility] [address] [place] [address] Dr. Elaina Garnett Chloride [Moles/Vol] 106 mmol/L Normal 98-107 [facility] Comment on above: Performed By: #### C MP #### [facility] [address] [address] [address] Elaina Garnett CO2 [Moles/Vol] 24.4 mmol/L Normal 21.0-32.0 [facility] Comment on above: Performed By: #### C MP #### [facility] [address] [address] [address] Elaina Garnett Creatinine [Mass/Vol] 2.13 mg/dL Critically high 0.55-1.02 [facility] Comment on above: Performed By: #### C MP #### [facility] [address] [address] [address] Elaina Garnett EGFR-AF WALLISIAN 27 mL/min/1.73m2 Critically low >=60 [facility] Comment on above: Performed By: #### C MP #### [facility] [address] [address] [address] Elaina Garnett EGFR-NON AF WALLISIAN 22 mL/min/1.73m2 Critically low >=60 [facility] Comment on above: Performed By: #### C MP #### [facility] [address] [address] [address] Elaina Garnett Globulin (S) [Mass/Vol] 3.6 g/dL Normal [facility] Comment on above: Performed By: #### C MP #### [facility] [address] [address] [address] Elaina Garnett Glucose [Mass/Vol] 209 mg/dL Critically high 74-106 [facility] Comment on above: Performed By: #### C MP #### [facility] [address] [address] [address] Elaina Garnett Potassium [Moles/Vol] 4.4 mmol/L Normal 3.5-5.1 [facility] Comment on above: Performed By: #### C MP #### [facility] [address] [address] [address] Elaina Garnett Protein [Mass/Vol] 6.6 g/dL Normal 6.4-8.2 [facility] Comment on above: Performed By: #### C MP #### [facility] [address] [place] [address] Dr. Elaina Garnett Sodium [Moles/Vol] 139 mmol/L Normal 136-145 [facility] Comment on above: Performed By: #### C MP #### [facility] [address] [place] [address] Dr. Elaina Garnett Urea nitrogen [Mass/Vol] 101.0 mg/dL Critically high 7.0-18.0 [facility] Comment on above: Performed By: #### C MP #### [facility] [address] [place] [address] Dr. Elaina Garnett Urea nitrogen/Creatinine [Mass ratio] 47.4 mg/mg Normal [facility] Comment on above: Performed By: #### C MP #### [facility] [address] [place] [address] Dr. Elaina Garnett UA (CLEAN/CATCH) LIBRARIAN SPECIALIST/MICRO I F IND.on 11-05-2022 Bilirubin Ql (U) Negative Normal NEGATIVE [facility] Comment on above: Performed By: #### R SPLUS #### [facility] [address] [place] [address] Dr. Elaina Garnett Clarity (U) CLEAR Normal CLEAR [facility] Comment on above: Performed By: #### R SPLUS #### [facility] [address] [place] [address] Dr. Elaina Garnett Color (U) LT. YELLOW Normal YELLOW [facility] Comment on above: Performed By: #### R SPLUS #### [facility] [address] [place] [address] Dr. Elaina Garnett Glucose Ql (U) Negative Normal NEGATIVE [facility] Comment on above: Performed By: #### R SPLUS #### [facility] [address] [place] [address] Dr. Elaina Garnett Hemoglobin Ql (U) Negative Normal NEGATIVE [facility] Comment on above: Performed By: #### R SPLUS #### [facility] [address] [place] [address] Dr. Elaina Garnett Ketones Ql (U) Negative Normal NEGATIVE [facility] Comment on above: Performed By: #### R SPLUS #### [facility] [address] [place] [address] Dr. Elaina Garnett LEUKOCYTES Negative Normal NEGATIVE [facility] Comment on above: Performed By: #### R SPLUS #### [facility] [address] [address] [address] Elaina Garnett Nitrite Ql (U) Negative Normal NEGATIVE [facility] Comment on above: Performed By: #### R SPLUS #### [facility] [address] [place] [address] Dr. Elaina Garnett pH (U) 5.5 [pH] Normal 5-9 [facility] Comment on above: Performed By: #### R SPLUS #### [facility] [address] [place] [address] Dr. Elaina Garnett SPEC GRAVITY 1.010 Normal 1.005-<=1.025 [facility] Comment on above: Performed By: #### R SPLUS #### [facility] [address] [place] [address] Dr. Elaina Garnett UA PROTEIN Negative Normal NEGATIVE/ TRACE [facility] Comment on above: Performed By: #### R SPLUS #### [facility] [address] [place] [address] Dr. Elaina Garnett UR MICRO IND NOT INDICATED Normal [facility] Comment on above: Performed By: #### R SPLUS #### [facility] [address] [place] [address] Dr. Elaina Garnett Urobilinogen Qn (U) 0.2 {Danny'U}/dL Normal 0.2 - 1. 0 [facility] Comment on above: Performed By: #### R SPLUS #### [facility] [address] [place] [address] Dr. Elaina Garnett BLOOD GASES BTYon 11-04-2022 ALLENS TEST Positive Normal [facility] Comment on above: Result Comment: TEST NOT PERFORMED- RESULTED IN ERROR Previously reported as: POSITIVE On 11/04/2022 17:32 By LM4 Performed By: #### C BC #### [facility] [address] [address] [address] Elaina Garnett BIPAP PRESSURE [facility] Comment on above: Performed By: #### C BC #### [facility] [address] [address] [address] Elaina Garnett CPAP [facility] Comment on above: Performed By: #### C BC #### [facility] [address] [address] [address] Elaina Garnett FIO2 [facility] Comment on above: Performed By: #### C BC #### [facility] [address] [address] [address] Elaina Garnett LPM [facility] Comment on above: Performed By: #### C BC #### [facility] [address] [address] [address] Elaina Garnett MINUTE VOLUME Normal [facility] Comment on above: Performed By: #### C BC #### [facility] [address] [address] [address] Elaina Garnett PEEP [facility] Comment on above: Performed By: #### C BC #### [facility] [address] [address] [address] Elaina Garnett PIP [facility] Comment on above: Performed By: #### C BC #### [facility] [address] [address] [address] Elaina Garnett PS [facility] Comment on above: Performed By: #### C BC #### [facility] [address] [address] [address] Elaina Garnett RATE [facility] Comment on above: Performed By: #### C BC #### [facility] [address] [address] [address] Elaina Garnett VENT MODE [facility] Comment on above: Performed By: #### C BC #### [facility] [address] [address] [address] Elaina Garnett VT Normal [facility] Comment on above: Performed By: #### C BC #### [facility] [address] [place] [address] Dr. Elaina Garnett BNPon 11-04-2022 Natriuretic peptide B (Bld) [Mass/Vol] 356.0 pg/mL Normal <=1,800.0 [facility] Comment on above: Performed By: #### C BC #### [facility] [address] [place] [address] Dr. Elaina Garnett BUNon 11-04-2022 Urea nitrogen [Mass/Vol] 112.0 mg/dL Critically high 7.0-18.0 [facility] Comment on above: Performed By: #### B UN #### [facility] [address] [place] [address] Dr. Elaina Garnett CARDIAC MIKE 3-6on 2 CK [Catalytic activity/Vol] 100 U/L Normal 26-192 [facility] Comment on above: Performed By: #### C MREP #### [facility] [address] [place] [address] Dr. Elaina Garnett CK.MB [Mass/Vol] 2.57 ng/mL Normal <=3.[address] [facility] Comment on above: Performed By: #### C MREP #### [facility] [address] [place] [address] Dr. Elaina Garnett HSTROP 7.3 pg/mL Normal 4.0-51.3 [facility] Comment on above: Result Comment: CUT- OFF POINTS HAVE BEEN ESTABLISHED BASED ON THE FOURTH UNIVERSAL DEFINITIONS OF MYOCARDIAL INFARCTION. THE UPPER REFERENCE LIMIT (URL) OF TROPONIN, DEFINED THE 99TH PERCENTILE OF cTnI DISTRIBUTION IN A REFERENCE POPULATION, HAS BEEN CONFIRMED THE DECISION THRESHOLD FOR DE DIAGNOSIS. Performed By: #### C MREP #### [facility] [address] [place] [address] Dr. Elaina Garnett CARDIAC MIKE ADMITon 022 CK [Catalytic activity/Vol] 97 U/L Normal 26-192 [facility] Comment on above: Performed By: #### C BC #### [facility] [address] [place] [address] Dr. Elaina Garnett CK.MB [Mass/Vol] 2.35 ng/mL Normal <=3.[address] [facility] Comment on above: Performed By: #### C BC #### [facility] [address] [place] [address] Dr. Elaina Garnett HSTROP 7.8 pg/mL Normal 4.0-51.3 [facility] Comment on above: Result Comment: CUT- OFF POINTS HAVE BEEN ESTABLISHED BASED ON THE FOURTH UNIVERSAL DEFINITIONS OF MYOCARDIAL INFARCTION. THE UPPER REFERENCE LIMIT (URL) OF TROPONIN, DEFINED THE 99TH PERCENTILE OF cTnI DISTRIBUTION IN A REFERENCE POPULATION, HAS BEEN CONFIRMED THE DECISION THRESHOLD FOR DE DIAGNOSIS. Performed By: #### C BC #### [facility] [address] [place] [address] Dr. Elaina Garnett TAO 155 ng/mL Critically high 9-82 [facility] Comment on above: Performed By: #### C BC #### [facility] [address] [place] [address] Dr. Elaina Garnett CBC AUTO DIFFon 11-04-2022 BASO # 0.1 103/ul Normal 0.0-0.1 [facility] Comment on above: Performed By: #### R SPLUS #### [facility] [address] [place] [address] Dr. Elaina Garnett Basophils/100 WBC (Bld) 1.0 % Normal 0.2-2.0 [facility] Comment on above: Performed By: #### R SPLUS #### [facility] [address] [place] [address] Dr. Elaina Garnett EO # 0.3 103/ul Normal 0.0-0.7 [facility] Comment on above: Performed By: #### R SPLUS #### [facility] [address] [place] [address] Dr. Elaina Garnett Eosinophils/100 WBC (Bld) 3.2 % Normal 0.9-7.0 [facility] Comment on above: Performed By: #### R SPLUS #### [facility] [address] [place] [address] Dr. Elaina Garnett Erythrocyte distribution width (RBC) [Ratio] 13.2 % Normal 11.0-15.0 [facility] Comment on above: Performed By: #### R SPLUS #### [facility] [address] [place] [address] Dr. Elaina Garnett Hematocrit (Bld) [Volume fraction] 42.5 % Normal 36.0-48.0 [facility] Comment on above: Performed By: #### R SPLUS #### [facility] [address] [place] [address] Dr. Elaina Garnett Hemoglobin (Bld) [Mass/Vol] 14.3 g/dL Normal 12.0-16.0 [facility] Comment on above: Performed By: #### R SPLUS #### [facility] [address] [place] [address] Dr. Elaina Garnett IG # 0.03 10e3/ul Normal 0.00-0.03 [facility] Comment on above: Performed By: #### R SPLUS #### [facility] [address] [place] [address] Dr. Elaina Garnett IG % 0.3 % Normal 0.0-0.5 [facility] Comment on above: Performed By: #### R SPLUS #### [facility] [address] [place] [address] Dr. Elaina Garnett LYMPH # 3.2 103/ul Normal 1.2-3.8 [facility] Comment on above: Performed By: #### R SPLUS #### [facility] [address] [place] [address] Dr. Elaina Garnett Lymphocytes/100 WBC (Bld) 32.2 % Normal 20.5-60.0 [facility] [facility] Comment on above: Performed By: #### R SPLUS #### [facility] [address] [place] [address] Dr. Elaina Garnett MANUAL DIFF REQ NO Normal [facility] Comment on above: Performed By: #### R SPLUS #### [facility] [address] [place] [address] Dr. Elaina Garnett MCH (RBC) [Entitic mass] 29.5 pg Normal 26.7-34.0 [facility] Comment on above: Performed By: #### R SPLUS #### [facility] [address] [address] [address] Elaina Garnett MCHC (RBC) [Mass/Vol] 33.6 g/dL Normal 29.9-35.2 [facility] Comment on above: Performed By: #### R SPLUS #### [facility] [address] [address] [address] Elaina Garnett MCV (RBC) [Entitic vol] 87.8 fL Normal 81.0-99.0 [facility] Comment on above: Performed By: #### R SPLUS #### [facility] [address] [place] [address] Dr. Elaina Garnett MONO # 1.5 103/ul Critically high 0.3-0.8 [facility] Comment on above: Performed By: #### R SPLUS #### [facility] [address] [place] [address] Dr. Elaina Garnett Monocytes/100 WBC (Bld) 14.5 % Critically high 1.7-12. 0 [facility] Comment on above: Performed By: #### R SPLUS #### [facility] [address] [place] [address] Dr. Elaina Garnett NEUT # 4.9 103/ul Normal 1.4-6.5 [facility] Comment on above: Performed By: #### R SPLUS #### [facility] [address] [place] [address] Dr. Elaina Garnett Neutrophils/100 WBC (Bld) 48.8 % Normal 43.0-75.0 [facility] Comment on above: Performed By: #### R SPLUS #### [facility] [address] [place] [address] Dr. Elaina Garnett Platelet mean volume (Bld) [Entitic vol] 9.8 fL Normal 9.5-13.5 [facility] Comment on above: Performed By: #### R SPLUS #### [facility] [address] [address] [address] Elaina Garnett PLT 277 103/ul Normal 150-450 [facility] Comment on above: Performed By: #### R SPLUS #### [facility] [address] [address] [address] Elaina Garnett RBC 4.84 106/ul Normal 4.20-5.40 [facility] Comment on above: Performed By: #### R SPLUS #### [facility] [address] [address] [address] Elaina Garnett WBC 10.0 103/ul Normal 4.0-11.0 [facility] Comment on above: Performed By: #### R SPLUS #### [facility] [address] [address] HEAD WO CONon [...] JUAN GARRETT Date: 2022-11-04 17:14 Normal [facility]on SARS-CoV-2 (COVID-19) RNA BARB+probe Ql (Unsp spec) Not detected Normal NOT DETECTED [facility] Comment on above: Result Comment: When [...] for this test is supported by the Lane of Health and Human Service's declaration that [...] used). Performed By: #### R SPLUS #### [facility] [address] [place] [address] Dr. Elaina Garnett INFLUENZA A AND B AGon 11-04 INFLUANEGH SEE BELOW Normal [facility] Comment on above: Result Comment: Nega tive for Flu A protein angiten. Infection due to Flu A cannot be ruled out. Flu A angiten in the sample may be below the detection limit of the test. Performed By: #### C BC #### [facility] [address] [place] [address] Dr. Elaina Garnett INFLUBNEGH SEE BELOW Normal [facility] Comment on above: Result Comment: Nega tive for Flu B protein antigen. Infection due to Flu B cannot be ruled out. Flu B antigen in the sample may be below the detection limit of the test. Performed By: #### C BC #### [facility] [address] [place] [address] Dr. Elaina Garnett INFLUENZA A AG Negative Normal NEGATIVE SEE COMMENT [facility] Comment on above: Performed By: #### C BC #### [facility] [address] [place] [address] Dr. Elaina Garnett INFLUENZA B AG Negative Normal NEGATIVE SEE COMMENT [facility] Comment on above: Performed By: #### C BC #### [facility] [address] [place] [address] Dr. Elaina Garnett INTERNAL CONTROLS Within Normal Limits Normal Wi thin Normal Limits [facility] Comment on above: Performed By: #### C BC #### [facility] [address] [place] [address] Dr. Elaina Garnett LIPASEon 11-04-2022 Lipase [Catalytic activity/Vol] 163.0 U/L Normal 73.0-393.0 [facility] Comment on above: Performed By: #### C BC #### [facility] [address] [place] [address] Dr. Elaina Garnett POINT OF CARE GLUCOSEon Glucose [Mass/Vol] 246 mg/dL Critically high 74-106 [facility] Comment on above: Performed By: #### P OCGLUC #### [facility] [address] [place] [address] Dr. Elaina Garnett Glucose [Mass/Vol] 224 mg/dL Critically high -106 [facility] Comment on above: Performed By: #### P OCGLUC #### [facility] [address] [place] [address] Dr. Elaina Garnett Glucose [Mass/Vol] 113 mg/dL Critically high -106 [facility] Comment on above: Performed By: #### C BC #### [facility] [address] [place] [address] Dr. Elaina Garnett Glucose [Mass/Vol] 47 mg/dL Critically low 74-106 [facility] Comment on above: Result Comment: DR Lizeth KAM Performed By: #### P OCGLUC #### [facility] [address] [place] [address] Dr. Elaina Garnett Glucose [Mass/Vol] 127 mg/dL Critically high [facility]106 [facility] Comment on above: Performed By: #### C BC #### [facility] [address] [place] [address] Dr. Elaina Garnett PROF 14(COMP METB)on 022 Albumin [Mass/Vol] 4.1 g/dL Normal 3.4-5.0 [facility] Comment on above: Performed By: #### C BC #### [facility] [address] [place] [address] Dr. Elaina Garnett Albumin/Globulin [Mass ratio] 0.9 {ratio} Normal [facility] Comment on above: Performed By: #### C BC #### [facility] [address] [address] [address] Elaina Garnett ALP [Catalytic activity/Vol] 105 U/L Normal 46-116 [facility] Comment on above: Performed By: #### C BC #### [facility] [address] [place] [address] Dr. Elaina Garnett ALT [Catalytic activity/Vol] 19 U/L Normal 14-59 [facility] Comment on above: Performed By: #### C BC #### [facility] [address] [place] [address] Dr. Elaina Garnett Anion gap [Moles/Vol] 14.1 mmol/L Normal [facility] Comment on above: Performed By: #### C BC #### [facility] [address] [place] [address] Dr. Elaina Garnett AST [Catalytic activity/Vol] 20 U/L Normal 15-37 [facility] Comment on above: Performed By: #### C BC #### [facility] [address] [place] [address] Dr. Elaina Garnett Bilirubin [Mass/Vol] 0.6 mg/dL Normal 0.2-1.0 [facility] Comment on above: Performed By: #### C BC #### [facility] [address] [place] [address] Dr. Elaina Garnett Calcium [Mass/Vol] 9.8 mg/dL Normal 8.5-10.1 [facility] Comment on above: Performed By: #### C BC #### [facility] [address] [place] [address] Dr. Elaina Garnett Chloride [Moles/Vol] 102 mmol/L Normal 98-107 [facility] Comment on above: Performed By: #### C BC #### [facility] [address] [place] [address] Dr. Elaina Garnett CO2 [Moles/Vol] 27.7 mmol/L Normal 21.0-32.0 [facility] Comment on above: Performed By: #### C BC #### [facility] [address] [place] [address] Dr. Elaina Garnett Creatinine [Mass/Vol] 2.25 mg/dL Critically high 0.55-1.02 [facility] Comment on above: Performed By: #### C BC #### [facility] [address] [address] [address] Elaina Garnett EGFR-AF WALLISIAN 25 mL/min/1.73m2 Critically low >=60 [facility] Comment on above: Performed By: #### C BC #### [facility] [address] [address] [address] Elaina Garnett EGFR-NON AF WALLISIAN 21 mL/min/1.73m2 Critically low >=60 [facility] Comment on above: Performed By: #### C BC #### [facility] [address] [place] [address] Dr. Elaina Garnett Globulin (S) [Mass/Vol] 4.6 g/dL Normal [facility] Comment on above: Performed By: #### C BC #### [facility] [address] [place] [address] Dr. Elaina Garnett Glucose [Mass/Vol] 27 mg/dL Critically low 74-106 [facility] Comment on above: Performed By: #### C BC #### [facility] [address] [place] [address] Dr. Elaina Garnett Potassium [Moles/Vol] 3.8 mmol/L Normal 3.5-5.1 [facility] Comment on above: Performed By: #### C BC #### [facility] [address] [address] [address] Elaina Garnett Protein [Mass/Vol] 8.7 g/dL Critically high 6.4-8.2 [facility] Comment on above: Performed By: #### C BC #### [facility] [address] [address] [address] Elaina Garnett Sodium [Moles/Vol] 140 mmol/L Normal 136-145 [facility] Comment on above: Performed By: #### C BC #### [facility] [address] [address] [address] Elaina Garnett Urea nitrogen [Mass/Vol] 117.0 mg/dL Critically high 7.0-18.0 [facility] Comment on above: Performed By: #### C BC #### [facility] [address] [place] [address] Dr. Elaina Garnett Urea nitrogen/Creatinine [Mass ratio] 52.0 mg/mg Normal [facility] Comment on above: Performed By: #### C BC #### [facility] [address] [place], [place] [id number] Dr. Elaina Garnett PROTIMEon 11-04-2022 INR Coag (PPP) [Relative time] 1.00 {INR} Normal [facility] Comment on above: Performed By: #### C BC #### [facility] [address] [place] [address] Dr. Elaina Garnett INR GUIDELINES SEE BELOW Normal [facility] Comment on above: Result Comment: HOA RED INR: 2.0 - 3.0 CONDITIONS NOT LISTED BELOW 2.5 - 3.5 FOR PROSTHETIC HEART VALVE REPLACEMENT 2.5 - 3.5 RECURRENT THROMBOSIS Performed By: #### C BC #### [facility] [address] [place] [address] Dr. Elaina Garnett PT Coag (PPP) [Time] 10.8 s Normal 9.0-11.6 [facility] Comment on above: Performed By: #### C BC #### [facility] [address] [place] [address] Dr. Elaina Garnett PTTon 11-04-2022 aPTT Coag (Bld) [Time] 28.5 s Normal 22.3-36.2 [facility] Comment on above: Performed By: #### C BC #### [facility] [address] [place] [address] Dr. Elaina Garnett XR CHEST 1 Von [...] acute cardiopulmonary abnormality. Electronically authenticated by: ELLEN AVALOS Date: 2022-11-04 16:54 Normal [facility] BNPon 09-14-2022 Natriuretic peptide B (Bld) [Mass/Vol] 685.0 pg/mL Normal <=1,800.0 [facility] Comment on above: Performed By: #### C MP #### [facility] [address] [place] [address] Dr. Elaina Garnett BUNon 09-14-2022 Urea nitrogen [Mass/Vol] 67.0 mg/dL Critically high 7.0-18.0 [facility] Comment on above: Performed By: #### C MP #### [facility] [address] [place] [address] Dr. Elaina Garnett CBC AUTO DIFFon 09-14-2022 BASO # 0.1 103/ul Normal 0.0-0.1 [facility] Comment on above: Performed By: #### C BC #### [facility] [address] [place] [address] Dr. Elaina Garnett Basophils/100 WBC (Bld) 1.1 % Normal 0.2-2.0 [facility] Comment on above: Performed By: #### C BC #### [facility] [address] [place] [address] Dr. Elaina Garnett EO # 0.3 103/ul Normal 0.0-0.7 [facility] Comment on above: Performed By: #### C BC #### [facility] [address] [place] [address] Dr. Elaina Garnett Eosinophils/100 WBC (Bld) 3.6 % Normal 0.9-7.0 [facility] Comment on above: Performed By: #### C BC #### [facility] [address] [place] [address] Dr. Elaina Garnett Erythrocyte distribution width (RBC) [Ratio] 13.8 % Normal 11.0-15.0 [facility] Comment on above: Performed By: #### C BC #### [facility] [address] [place] [address] Dr. Elaina Garnett Hematocrit (Bld) [Volume fraction] 40.7 % Normal 36.0-48.0 [facility] Comment on above: Performed By: #### C BC #### [facility] [address] [place] [address] Dr. Elaina Garnett Hemoglobin (Bld) [Mass/Vol] 13.4 g/dL Normal 12.0-16.0 [facility] Comment on above: Performed By: #### C BC #### [facility] [address] [place] [address] Dr. Elaina Garnett IG # 0.02 10e3/ul Normal 0.00-0.03 [facility] Comment on above: Performed By: #### C BC #### [facility] [address] [place] [address] Dr. Elaina Garnett IG % 0.2 % Normal 0.0-0.5 [facility] Comment on above: Performed By: #### C BC #### [facility] [address] [place] [address] Dr. Elaina Garnett LYMPH # 2.2 103/ul Normal 1.2-3.8 [facility] Comment on above: Performed By: #### C BC #### [facility] [address] [place] [address] Dr. Elaina Garnett Lymphocytes/100 WBC (Bld) 26.0 % Normal 20.5-60.0 [facility] Comment on above: Performed By: #### C BC #### [facility] [address] [place] [address] Dr. Elaina Garnett MANUAL DIFF REQ NO Normal [facility] Comment on above: Performed By: #### C BC #### [facility] [address] [place] [address] Dr. Elaina Garnett MCH (RBC) [Entitic mass] 30.7 pg Normal 26.7-34.0 [facility] Comment on above: Performed By: #### C BC #### [facility] [address] [place] [address] Dr. Elaina Garnett MCHC (RBC) [Mass/Vol] 32.9 g/dL Normal 29.9-35.2 [facility] Comment on above: Performed By: #### C BC #### [facility] [address] [address] [address] Elaina Garnett MCV (RBC) [Entitic vol] 93.3 fL Normal 81.0-99.0 [facility] Comment on above: Performed By: #### C BC #### [facility] [address] [address] [address] Elaina Garnett MONO # 1.0 103/ul Critically high 0.3-0.8 [facility] Comment on above: Performed By: #### C BC #### [facility] [address] [place] [address] Dr. Elaina Garnett Monocytes/100 WBC (Bld) 12.4 % Critically high 1.7-12. 0 [facility] Comment on above: Performed By: #### C BC #### [facility] [address] [place] [address] Dr. Elaina Garnett NEUT # 4.7 103/ul Normal 1.4-6.5 [facility] Comment on above: Performed By: #### C BC #### [facility] [address] [place] [address] Dr. Elaina Garnett Neutrophils/100 WBC (Bld) 56.7 % Normal 43.0-75.0 [facility] Comment on above: Performed By: #### C BC #### [facility] [address] [place] [address] Dr. Elaina Garnett Platelet mean volume (Bld) [Entitic vol] 9.7 fL Normal 9.5-13.5 [facility] Comment on above: Performed By: #### C BC #### [facility] [address] [place] [address] Dr. Elaina Garnett PLT 230 103/ul Normal 150-450 [facility] Comment on above: Performed By: #### C BC #### [facility] [address] [place] [address] Dr. Elaina Garnett RBC 4.36 106/ul Normal 4.20-5.40 [facility] Comment on above: Performed By: #### C BC #### [facility] [address] [address] [address] Elaina Garnett WBC 8.3 103/ul Normal 4.0-11.0 [facility] Comment on above: Performed By: #### C BC #### [facility] [address] [address] [address] Elaina Garnett CREATININEon 09-14-2022 Creatinine [Mass/Vol] 1.93 mg/dL Critically high 0.55-1.02 [facility] Comment on above: Performed By: #### C MP #### [facility] [address] [address] [address] Elaina Garnett EGFR-AF WALLISIAN 30 mL/min/1.73m2 Critically low >=60 [facility] Comment on above: Performed By: #### C MP #### [facility] [address] [address] [address] Elaina Garnett EGFR-NON AF WALLISIAN 25 mL/min/1.73m2 Critically low >=60 [facility] Comment on above: Performed By: #### C MP #### [facility] [address] [address] [address] Elaina Garnett ELECTROLYTESon 09-14-2022 Anion gap [Moles/Vol] 13.1 mmol/L Normal [facility] Comment on above: Performed By: #### C MP #### [facility] [address] [address] [address] Elaina Garnett Chloride [Moles/Vol] 103 mmol/L Normal 98-107 [facility] Comment on above: Performed By: #### C MP #### [facility] [address] [address] [address] Elaina Garnett CO2 [Moles/Vol] 25.5 mmol/L Normal 21.0-32.0 [facility] Comment on above: Performed By: #### C MP #### [facility] [address] [address] [address] Elaina Garnett Potassium [Moles/Vol] 4.6 mmol/L Normal 3.5-5.1 [facility] Comment on above: Performed By: #### C MP #### [facility] [address] [address] [address] Elaina Garnett Sodium [Moles/Vol] 137 mmol/L Normal 136-145 [facility] Comment on above: Performed By: #### C MP #### [facility] [address] [address] [address] Elaina Garnett GLYCOHEMOGLOBIN A1Con 2021 ADA RECOMMENDATION SEE BELOW Normal [facility] Comment on above: Result Comment: ADA RECOMMENDED LIMIT 4.0 - 6.0 ADA THERAPEUTIC TARGET < 7.0 ACTION SUGGESTED > 7.0 Performed By: #### R SPLUS #### [facility] [address] [address] [address] Elaina Garnett Glucose [Mass/Vol] 209 mg/dL Normal [facility] Comment on above: Performed By: #### R SPLUS #### [facility] [address] [address] [address] Elaina Garnett HbA1c (Bld) [Mass fraction] 8.9 % Critically high 4.5-6.2 [facility] Comment on above: Performed By: #### R SPLUS #### [facility] [address] [address] [address] Elaina Garnett LIPID PROFILEon 09-14-2022 CHOL-HDL RATIO NORM SEE BELOW Normal [facility] Comment on above: Result Comment: 3.3 - 4.4 LOW RISK 4.4 - 7.1 AVERAGE RISK 7.1 - 11.0 MODERATE RISK >11.0 HIGH RISK Performed By: #### C MP #### [facility] [address] [address] [address] Elaina Garnett Cholesterol [Mass/Vol] 135 mg/dL Normal <=200 [facility] Comment on above: Performed By: #### C MP #### [facility] [address] [address] [address] Elaina Garnett Cholesterol in HDL [Mass/Vol] 39 mg/dL Critically low 40-60 [facility] Comment on above: Performed By: #### C MP #### [facility] [address] [address] [address] Elaina Garnett Cholesterol in LDL [Mass/Vol] 67.4 mg/dL Normal [facility] Comment on above: Performed By: #### C MP #### [facility] [address] [address] [address] Elaina Garnett Cholesterol.total/Farheen sterol in HDL [Mass ratio] 3.5 {ratio} Normal [facility] Comment on above: Performed By: #### C MP #### [facility] [address] [address] [address] Elaina Garnett HDL NORMAL > or = 60 mg/dl - LOW CARDIOVASCULAR RISK <40 mg/dl - HIGH CARDIOVASCULAR RISK Normal [facility] Comment on above: Performed By: #### C MP #### [facility] [address] [address] [address] Elaina Garnett LDL CALC NORMAL SEE BELOW Normal [facility] Comment on above: Result Comment: <100 mg/dl OPTIMAL 100 - 129 mg/dl NEAR OR ABOVE OPTIMAL 130 - 159 mg/dl BORDERLINE HIGH 160 - 189 mg/dl HIGH >190 mg/dl VERY HIGH Performed By: #### C MP #### [facility] [address] [address] [address] Elaina Garnett Triglyceride [Mass/Vol] 143 mg/dL Normal <=150 [facility] Comment on above: Performed By: #### C MP #### [facility] [address] [address] [address] Elaina Garnett VLDL CALC 28.6 mg/dL Normal [facility] Comment on above: Performed By: #### C MP #### [facility] [address] [address] [address] Elaina Garnett LIVER PROFILEon 09-14-2022 Albumin [Mass/Vol] 3.4 g/dL Normal 3.4-5.0 [facility] Comment on above: Performed By: #### C MP #### [facility] [address] [address] [address] Elaina Garnett Albumin/Globulin [Mass ratio] 0.8 {ratio} Normal [facility] Comment on above: Performed By: #### C MP #### [facility] [address] [address] [address] Elaina Garnett ALP [Catalytic activity/Vol] 122 U/L Critically high 46-116 [facility] Comment on above: Performed By: #### C MP #### [facility] [address] [address] [address] Elaina Garnett ALT [Catalytic activity/Vol] 17 U/L Normal 14-59 [facility] Comment on above: Performed By: #### C MP #### [facility] [address] [address] [address] Elaina Garnett AST [Catalytic activity/Vol] 15 U/L Normal 15-37 [facility] Comment on above: Performed By: #### C MP #### [facility] [facility] [address] [place] [address] Dr. Elaina Garnett BILI, CONJUGATED 0.1 mg/dL Normal 0.0-0.2 [facility] Comment on above: Performed By: #### C MP #### [facility] [address] [address] [address] Elaina Garnett Bilirubin [Mass/Vol] 0.6 mg/dL Normal 0.2-1.0 [facility] Comment on above: Performed By: #### C MP #### [facility] [address] [place] [address] Dr. Elaina Garnett Globulin (S) [Mass/Vol] 4.1 g/dL Normal T [facility] Comment on above: Performed By: #### C MP #### [facility] [address] [address] [address] Elaina Garnett Protein [Mass/Vol] 7.5 g/dL Normal 6.4-8.2 [facility] Comment on above: Performed By: #### C MP #### [facility] [address] [address] [address] Elaina Garnett TSHon 09-14-2022 TSH 1.535 uIU/mL Normal 0.358-3.740 [facility] Comment on above: Performed By: #### C MP #### [facility] [address] [address] [address] Elaina Garnett MG MAMM SCREEN 3D PEDRO CADon 09-13-2022 MG MAMM SCREEN 3D PEDRO CAD Patient: VARSHA CHAUDHRY Exam Date: 09/13/2022 : 1945 Gender:F Ordering : DR SHAWN STOUT Admission #: [id number] Family : Order #: [id number] CLICK HERE TO VIEW EXAM RADIOLOGY REPORT [...] RADIATION TREATMENTS Family Cancers None LOCATION: [facility] BREAST COMPOSITION: Scattered areas fibroglandular density. [...] M.D. on 09/14/2022 at 14:11 Normal [facility] RENAL FUNCTION PANELon 05-17 Albumin [Mass/Vol] 3.5 g/dL Normal 3.4-5.0 [facility] Comment on above: Performed By: #### C MP #### [facility] [address] [address] [address] Elaina Garnett Calcium [Mass/Vol] 8.8 mg/dL Normal 8.5-10.1 [facility] Comment on above: Performed By: #### C MP #### [facility] [address] [address] [address] Elaina Garnett Chloride [Moles/Vol] 106 mmol/L Normal 98-107 [facility] Comment on above: Performed By: #### C MP #### [facility] [address] [address] [address] Elaina Garnett CO2 [Moles/Vol] 29.1 mmol/L Normal 21.0-32.0 [facility] Comment on above: Performed By: #### C MP #### [facility] [address] [address] [address] Elaina Garnett Creatinine [Mass/Vol] 2.04 mg/dL Critically high 0.55-1.02 [facility] Comment on above: Performed By: #### C MP #### [facility] [address] [address] [address] Elaina Garnett EGFR-AF WALLISIAN 29 mL/min/1.73m2 Critically low >=60 [facility] Comment on above: Performed By: #### C MP #### [facility] [address] [address] [address] Elaina Garnett EGFR-NON AF WALLISIAN 24 mL/min/1.73m2 Critically low >=60 [facility] Comment on above: Performed By: #### C MP #### [facility] [address] [address] [address] lEaina Garnett Glucose [Mass/Vol] 46 mg/dL Critically low 74-106 [facility] Comment on above: Performed By: #### C MP #### [facility] [address] [address] [address] Elaina Garnett Phosphate [Mass/Vol] 4.2 mg/dL Normal 2.6-4.7 [facility] Comment on above: Performed By: #### C MP #### [facility] [address] [address] [address] Elaina Garnett Potassium [Moles/Vol] 4.6 mmol/L Normal 3.5-5.1 [facility] Comment on above: Performed By: #### C MP #### [facility] [address] [address] [address] Elaina Garnett Sodium [Moles/Vol] 142 mmol/L Normal 136-145 [facility] Comment on above: Performed By: #### C MP #### [facility] [address] [address] [address] Elaina Garnett Urea nitrogen [Mass/Vol] 65.0 mg/dL Critically high 7.0-18.0 [facility] Comment on above: Performed By: #### C MP #### [facility] [address] [address] [address] Elaina Garnett CBC panel Auto (Bld)on 05-03 Erythrocyte distribution width (RBC) [Ratio] 14.0 % 11.5 - 15.0 % [facility] Hematocrit (Bld) [Volume fraction] 43.3 % 36.0 - 46.0 % [facility] Hemoglobin (Bld) [Mass/Vol] 13.6 g/dL 11.5 - 15.5 g/dL [facility] MCH (RBC) [Entitic mass] 29.2 pg 26.0 - 34.0 pg [facility] MCHC (RBC) [Mass/Vol] 31.4 g/dL 30.5 - 36.0 g/dL [facility] MCV (RBC) [Entitic vol] 93.1 fL 80.0 - 100.0 fL [facility] Nucleated RBC (Bld) [#/Vol] 10*3/uL <0.01 k/uL [facility] Platelet mean volume (Bld) [Entitic vol] 9.8 fL 9.0 - 12.7 fL [facility] Platelets (Bld) [#/Vol] 247 10*3/uL 150 - 400 k/uL [facility] RBC (Bld) [#/Vol] 4.65 10*6/uL 3.90 - 5.2 0 m/uL [facility] WBC (Bld) [#/Vol] 8.50 10*3/uL 3.70 - 11. 00 k/uL [facility] HEPATIC FUNCTION PNLon 05-03 Albumin [Mass/Vol] 4.2 g/dL 3.9 - 4.9 g/dL [facility] ALP [Catalytic activity/Vol] 114 U/L 34 - 123 U/L [facility] ALT [Catalytic activity/Vol] 11 U/L 7 - 38 U/L [facility] AST [Catalytic activity/Vol] 17 U/L 13 - 35 U/L [facility] Bilirubin [Mass/Vol] 0.7 mg/dL 0.2 - 1 .3 mg/dL [facility] Bilirubin.conjugated [Mass/Vol] mg/dL <0.2 mg/dL [facility] Protein [Mass/Vol] 7.7 g/dL 6.3 - 8.0 g/dL [facility] LIPID PANEL BASICon 05-03-20 22 Cholesterol [Mass/Vol] 155 mg/dL <200 mg/dL [facility] Cholesterol in HDL [Mass/Vol] 39 mg/dL Low >39 mg/dL [facility] Cholesterol in LDL [Mass/Vol] 62 mg/dL <100 mg/dL [facility] Cholesterol in LDL/Cholesterol in HDL [Mass ratio] 1.59 {ratio} <2.54 [facility] Cholesterol in VLDL [Mass/Vol] 54 mg/dL High <30 mg/dL [facility] Cholesterol non HDL [Mass/Vol] 116 mg/dL <130 mg/dL [facility] Cholesterol.total/Farheen sterol in HDL [Mass ratio] 3.97 {ratio} <5.10 [facility] Fasting Time 0 hrs [facility] Triglyceride [Mass/Vol] 272 mg/dL High <150 mg/dL [facility] MAGNESIUM [facility] 05-03-2022 Magnesium [Mass/Vol] 2.5 mg/dL High 1.7 - 2 .3 mg/dL [facility] NT PRO BNPon 05-03-2022 Natriuretic peptide.B prohormone N-Terminal [Mass/Vol] 340 pg/mL <450 pg/mL [facility] TSH [facility] 05-03-2022 TSH Qn 1.590 m[IU]/L 0.270 - 4.200 mIU/L [facility] Vital Signs Date Time Vital Sign Value Performing Clinician Facility 09-12-2024 13:28-0400 Body height 160 cm Edgard Abdi DPM Work Phone: [facility] 09-12-2024 13:28-0400 Body mass index (BMI) [Ratio] 35.07 kg/m2 Edgard Abdi DPM Work Phone: [facility] 09-12-2024 13:28-0400 Body weight 89.81 kg Edgard Abdi DPM Work Phone: [facility] 09-12-2024 13:28-0400 Diastolic blood pressure 82 mm[Hg] Edgard Abdi DPM Work Phone: [facility] 09-12-2024 13:28-0400 Heart rate 87 /min Edgard Abdi DPM Work Phone: [facility] 09-12-2024 13:28-0400 Systolic blood pressure 125 mm[Hg] Edgard Adbi DPM Work Phone: [facility] 09-05-2024 13:27-0400 Body height 160 cm Edgard Abdi DPM Work Phone: [facility] 09-05-2024 13:27-0400 Body mass index (BMI) [Ratio] 35.07 kg/m2 Edgard Abdi DPM Work Phone: [facility] 09-05-2024 13:27-0400 Body weight 89.81 kg Edgard Abdi DPM Work Phone: [facility] 09-05-2024 13:27-0400 Respiratory rate 18 /min Edgard Abdi DPM Work Phone: [facility] 07-23-2024 10:48-0400 Body height 157.5 cm Tiera Spangler APRN.SINTER PRESS OPERATOR Work Phone: [facility] 07-23-2024 10:48-0400 Body mass index (BMI) [Ratio] 35.84 kg/m2 Tiera Spangler APRN.SINTER PRESS OPERATOR Work Phone: [facility] 07-23-2024 10:48-0400 Body weight 88.9 kg Tiera Spangler APRN.SINTER PRESS OPERATOR Work Phone: [facility] 07-23-2024 10:48-0400 Diastolic blood pressure 82 mm[Hg] Tiera Spangler APRN.SINTER PRESS OPERATOR Work Phone: [facility] 07-23-2024 10:48-0400 Heart rate 75 /min Tiera Spangler WATCH INSPECTOR FINAL MOVEMENT.SINTER PRESS OPERATOR Work Phone: [facility] 07-23-2024 10:48-0400 Systolic blood pressure 161 mm[Hg] Tiera Crys WATCH INSPECTOR FINAL MOVEMENT.SINTER PRESS OPERATOR Work Phone: [facility] 05-03-2024 12:01-0400 Body height 157.48 cm JR Ken Norton Work Phone: [facility] 05-03-2024 12:01-0400 Body temperature 98.3 [degF] JR Ken Norton Work Phone: [facility] 05-03-2024 12:01-0400 Body weight 83.91 kg JR Ken Norton Work Phone: [facility] 05-03-2024 12:01-0400 Diastolic blood pressure 71 mm[Hg] JR Ken Norton Work Phone: [facility] 05-03-2024 12:01-0400 Heart rate 82 /min JR Ken Norton Work Phone: [facility] 05-03-2024 12:01-0400 Respiratory rate 16 /min JR Ken Norton Work Phone: [facility] 05-03-2024 12:01-0400 SaO2% (BldA) [Mass fraction] 98 % JR Ken Norton Work Phone: [facility] 05-03-2024 12:01-0400 Systolic blood pressure 166 mm[Hg] JR Ken Norton Work Phone: [facility] 02-13-2024 10:42-0400 Body height 157.5 cm Marylu Deitzer DO Work Phone: [facility] 02-13-2024 10:42-0400 Body weight 86.5 kg Marylu Deitzer DO Work Phone: [facility] 02-13-2024 10:42-0400 Diastolic blood pressure 81 mm[Hg] Marylu Deitzer DO Work Phone: [facility] 02-13-2024 10:42-0400 Heart rate 59 /min Marylu Deitzer DO Work Phone: [facility] 02-13-2024 10:42-0400 Systolic blood pressure 158 mm[Hg] Marylu Deitzer DO Work Phone: [facility] 06-13-2023 14:45-0400 Body height 162.6 cm Tiera Crys WATCH INSPECTOR FINAL MOVEMENT.SINTER PRESS OPERATOR Work Phone: [facility] 06-13-2023 14:45-0400 Body weight 88.45 kg Tiera Crys WATCH INSPECTOR FINAL MOVEMENT.SINTER PRESS OPERATOR Work Phone: [facility] 06-13-2023 14:45-0400 Diastolic blood pressure 83 mm[Hg] Tiera Crys WATCH INSPECTOR FINAL MOVEMENT.SINTER PRESS OPERATOR Work Phone: [facility] 06-13-2023 14:45-0400 Heart rate 80 /min Tiera Crys WATCH INSPECTOR FINAL MOVEMENT.SINTER PRESS OPERATOR Work Phone: [facility] 06-13-2023 14:45-0400 Systolic blood pressure 130 mm[Hg] Tiera Crys WATCH INSPECTOR FINAL MOVEMENT.SINTER PRESS OPERATOR Work Phone: [facility] 01-10-2023 11:01-0500 Body height 162.6 cm Tiera Crys WATCH INSPECTOR FINAL MOVEMENT.SINTER PRESS OPERATOR Work Phone: [facility] 01-10-2023 11:01-0500 Body weight 86.64 kg Tiera Crys WATCH INSPECTOR FINAL MOVEMENT.SINTER PRESS OPERATOR Work Phone: [facility] 01-10-2023 11:01-0500 Diastolic blood pressure 81 mm[Hg] Tiera Crys WATCH INSPECTOR FINAL MOVEMENT.SINTER PRESS OPERATOR Work Phone: [facility] 01-10-2023 11:01-0500 Heart rate 76 /min Tiera Crys WATCH INSPECTOR FINAL MOVEMENT.SINTER PRESS OPERATOR Work Phone: [facility] 01-10-2023 11:01-0500 Systolic blood pressure 130 mm[Hg] Tiera Crys FRYE.SINTER PRESS OPERATOR Work Phone: [facility] 05-03-2022 15:05-0400 Body height 162.6 cm Tiera Edwardsliset FRYE.SINTER PRESS OPERATOR Work Phone: [facility] 05-03-2022 15:05-0400 Body weight 89.63 kg Tiera Crys FRYE.SINTER PRESS OPERATOR Work Phone: [facility] 05-03-2022 15:05-0400 Diastolic blood pressure 83 mm[Hg] Tiera Crys WATCH INSPECTOR FINAL MOVEMENT.SINTER PRESS OPERATOR Work Phone: [facility] 05-03-2022 15:05-0400 Heart rate 75 /min Tiera Crys FRYE.SINTER PRESS OPERATOR Work Phone: [facility] 05-03-2022 15:05-0400 Systolic blood pressure 182 mm[Hg] Tiera Crys FRYE.SINTER PRESS OPERATOR Work Phone: [facility] Encounters Encounter Date Encounter Type Care Provider Facility Start: 09-12-2024 End: 09-12-2024 [employer] Folioheet Edgard Abdi DPM Work Phone: [facility] Start: 09-12-2024 End: 09-12-2024 Bamboo flowsheet Edgard Abdi DPM Work Phone: [facility] Start: 09-12-2024 End: 09-12-2024 Office outpatient visit 15 minutes Edgard Abdi DPM Work Phone: [facility] Comment on above: Type 2 diabetes mya itus with diabetic neuropathy, with long- term current use of insulin ([facility]) (Primary Dx); Foot ulcer, right, with fat layer exposed ([facility]); Acquired deformity of right toe Start: 09-12-2024 End: 09-12-2024 ambulatory EDGARD ABDI Not Available Start: 09-05-2024 End: 09-05-2024 Bamboo flowsheet Edgard Abdi DPM Work Phone: [facility] Start: 09-05-2024 End: 09-05-2024 Bamboo flowsheet Edgard Abdi DPM Work Phone: [facility] Start: 09-05-2024 End: 09-05-2024 Office outpatient visit 15 minutes Edgard Abdi DPM Work Phone: [facility] Comment on above: Acquired deformity o f right toe (Primary Dx); Foot ulcer, right, with fat layer exposed (CMS/HCC); Type 2 diabetes mellitus with diabetic neuropathy, with long-term current use of insulin (CMS/HCC); Pain due to onychomycosis of toenails of both feet; Foot ulceration, right, with fat layer exposed (CMS/HCC) Start: 09-05-2024 End: 09-05-2024 ambulatory EDGARD ABDI Not Available Start: 08-19-2024 End: 08-19-2024 ambulatory FARTUN SKINNER Not Available Start: 08-15-2024 End: 08-15-2024 ambulatory TIERA SPANGLER Facility:[facility] Start: 08-02-2024 End: 08-02-2024 Telephone encounter Tiera Spangler APRN.CNP Work Phone: [facility] Comment on above: Results Start: 08-01-2024 End: 08-01-2024 ambulatory TIERA SPANGLER Facility:[facility] Start: 07-31-2024 End: 07-31-2024 ambulatory Lasha Mackenzie Facility:[facility] Start: 07-31-2024 End: 07-31-2024 Patient encounter procedure Lasha Leyda Mackenzie [facility] Start: 07-24-2024 End: 07-24-2024 Telephone encounter Tiera Spangler APRN.SINTER PRESS OPERATOR Work Phone: [facility] Comment on above: Results Start: 07-24-2024 End: 07-24-2024 ambulatory Lasha R Avril Facility:[facility] Start: 07-24-2024 End: 07-24-2024 Patient encounter procedure Lasha Mackenzie [facility] Start: 07-23-2024 End: 07-23-2024 Patient encounter procedure Tiera Spangler APRN.CNP Work Phone: [facility] Comment on above: CKD (chronic kidney disease) stage 4, GFR 15-29 ml/min ([facility]) (Primary Dx); Proteinuria, unspecified type; 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, with long-term current use of insulin ([facility]); Benign hypertension with chronic kidney disease, stage IV ([facility]); Hyperkalemia; Vitamin D deficiency Start: 07-23-2024 End: 07-23-2024 ambulatory TIERA SPANGLER Facility:[facility] Start: 07-17-2024 End: 07-17-2024 ambulatory Lasha Mackenzie Facility:[facility] Start: 07-17-2024 End: 07-17-2024 Patient encounter procedure [facility] Leyda Mackenzie [facility] Start: 07-03-2024 End: 07-03-2024 ambulatory Lasha Mackenzie Facility:[facility] Start: 07-03-2024 End: 07-03-2024 Patient encounter procedure Lashakatja Mackenzie [facility] Start: 06-27-2024 End: 06-27-2024 ambulatory EDGARD ABDI Not Available Start: 06-18-2024 Telephone encounter Tiera figueroa RD Work Phone: [facility] Comment on above: Medication Assistanc e (LOKELMA) Start: 06-13-2024 End: 06-13-2024 ambulatory EDGARD A BROWN Not Available Start: 06-06-2024 End: 06-06-2024 ambulatory EDGARD A BROWN Not Available Start: 05-23-2024 End: 05-23-2024 ambulatory EDGARD A BROWN Not Available Start: 05-20-2024 End: 05-20-2024 ambulatory FARTUN SKINNER Not Available Start: 05-16-2024 End: 05-16-2024 ambulatory EDGARD A BROWN Not Available Start: 05-09-2024 End: 05-09-2024 ambulatory EDGARD A BROWN Not Available Start: 05-03-2024 End: 05-03-2024 Admission to same day surgery center JR Ken Norton Work Phone: [facility] [place] Start: 05-03-2024 End: 05-03-2024 ambulatory JR Ken Norton Work Phone: [facility] Work Phone: Start: 04-25-2024 End: 04-25-2024 ambulatory EDGARD A BROWN Not Available Start: 04-11-2024 End: 04-11-2024 ambulatory EDGARD A BROWN Not Available Start: 04-04-2024 End: 04-04-2024 ambulatory EDGARD A BROWN Not Available Start: 03-28-2024 End: 03-28-2024 ambulatory EDGARD A BROWN Not Available Start: 03-21-2024 End: 03-21-2024 ambulatory EDGARD A BROWN Not Available Start: 03-14-2024 End: 03-14-2024 ambulatory EDGARD A BROWN Not Available Start: 03-08-2024 Telephone encounter Marylu gregory DO Work Phone: [facility] Comment on above: Critical Results Start: 03-07-2024 End: 03-07-2024 ambulatory EDGARD A BROWN Not Available Start: 02-22-2024 End: 02-22-2024 ambulatory EDGARD A BROWN Not Available Start: 02-14-2024 Telephone encounter Marylu gregory DO Work Phone: [facility] Start: 02-13-2024 End: 02-13-2024 ambulatory TIERA SPANGLER Facility:[facility] Start: 02-13-2024 End: 02-13-2024 Patient encounter procedure Maryluabdias Headley DO Work Phone: [facility] Comment on above: CKD (chronic kidney disease) stage 4, GFR 15-29 ml/min ([facility]) (Primary Dx); Proteinuria, unspecified type; 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, with long-term current use of insulin (HCC); Benign hypertension with chronic kidney disease, stage IV (HCC); Azotemia; Hyperkalemia Start: 02-08-2024 End: 02-08-2024 ambulatory EDGARD ABDI Not Available Start: 02-06-2024 Telephone encounter Marylu gregory DO Work Phone: [facility] Comment on above: Electronic Communica tion Results Start: 02-05-2024 End: 02-05-2024 ambulatory FARTUN SKINNER Not Available Start: 02-01-2024 End: 02-01-2024 ambulatory EDGARD ABDI Not Available Start: 12-26-2023 End: 12-26-2023 ambulatory TIERA SPANGLER Facility:[facility] Start: 12-18-2023 End: 12-19-2023 ambulatory EDGARD ABDI Not Available Start: 11-28-2023 End: 11-28-2023 ambulatory SHAWN STOUT Not Available Start: 11-23-2023 End: 11-23-2023 ambulatory EDGARD ABDI Not Available Start: 11-15-2023 Telephone encounter Tiera Spangler APRN.SINTER PRESS OPERATOR Work Phone: [facility] Comment on above: Patient Update Start: 11-08-2023 Orders Only Tiera Mendez and WATCH INSPECTOR FINAL MOVEMENT.SINTER PRESS OPERATOR Work Phone: [facility] Comment on above: Benign hypertension with chronic kidney disease, stage IV (HCC) (Primary Dx) Start: 11-06-2023 Telephone encounter Tiera Spangler APRN.SINTER PRESS OPERATOR Work Phone: [facility] Comment on above: Results Start: 11-06-2023 End: 11-06-2023 ambulatory FARTUN Katja SKINNER Not Available Start: 10-23-2023 Telephone encounter Tiera Spangler WATCH INSPECTOR FINAL MOVEMENT.SINTER PRESS OPERATOR Work Phone: [facility] Comment on above: Results Start: 10-10-2023 Telephone encounter Tiera Spangler WATCH INSPECTOR FINAL MOVEMENT.SINTER PRESS OPERATOR Work Phone: [facility] Comment on above: Critical Results Start: 10-09-2023 Telephone encounter Tiera Spangler WATCH INSPECTOR FINAL MOVEMENT.SINTER PRESS OPERATOR Work Phone: [facility] [place] Comment on above: Lab Orders Start: 07-20-2023 Telephone encounter Tiera Spangler APRN.SINTER PRESS OPERATOR Work Phone: [facility] [place] Comment on above: Medication Question Start: 06-13-2023 End: 06-13-2023 Patient encounter procedure Tiera Spangler APRN.SINTER PRESS OPERATOR Work Phone: [facility] Comment on above: Benign hypertension with chronic kidney disease, stage IV (HCC) (Primary Dx); CKD (chronic kidney disease) stage 4, GFR 15-29 ml/min (HCC); Proteinuria, unspecified type; Hyperkalemia; 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, unspecified whether mcfp insulin use (HCC) Start: 04-26-[address] KEN Carey ity:[facility] Start: 03-27-2023 End: 03-27-[address] JORGE Christie Facility:[facility] Start: 03-25-2023 End: 03-26-[address] KEN NORTON Facility:[facility] Start: 01-10-2023 End: 01-10-2023 Patient encounter procedure Tiera Spangler APRN.SINTER PRESS OPERATOR Work Phone: [facility] Comment on above: Benign hypertension with chronic kidney disease, stage IV (HCC) (Primary Dx); CKD (chronic kidney disease) stage 4, GFR 15-29 ml/min (HCC); Proteinuria, unspecified type; Hyperkalemia; 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, unspecified whether mcfp insulin use (HCC); Vitamin D deficiency Start: 11-04-2022 End: 11-05-[address] SHAHRZAD AKBAR . Facility:[facility] Start: 09-14-2022 End: 09-15-[address] KEN NORTON Facility:[facility] Start: 09-13-2022 End: 09-14-[address] KEN NORTON Facility:[facility] Start: 05-17-2022 Telephone encounter Marylu gregory DO Work Phone: [facility] Comment on above: Results Start: 05-17-2022 End: 05-18-[address] KEN NORTON Facility:[facility] Start: 06-08-2022 Telephone encounter Tiera Spangler APRN.CNP Work Phone: [...] stage 4 chronic kidney disease, unspecified whether terminal block assembler insulin use (HCC); Vitamin D deficiency; Chronic combined systolic and diastolic congestive heart failure (HCC) Procedures Date Procedure Procedure Detail Performing Clinician Start: 05-03-2024 Sofía Norton Work Phone: Start: 01-20-2014 left carpal tunnel release Lasha Avril Plan of Treatment Date Care Activity Detail Author Start: 12-05-2031 Urine microalbumin profile DTaP,Tdap,Td Vaccine (3 - Td or Tdap) [facility] Start: 02-12-2025 Complete blood count Hemoglobin/Dhaval tocrit [facility] Start: 02-12-2025 Creatinine measurement Serum Creatin ine [facility] Start: 12-10-2024 End: 12-10-2024 Patient encounter procedure 12/10/2024 1:00 PM EST Office Visit [facility] [address] [place] [address] Tiera Spangler APRN.SINTER PRESS OPERATOR [address] [place] [address] 4-6 MONTH FOLLOW UP [facility] Comment on above: 4-6 MONTH FOLLOW UP Start: 12-02-2024 End: 12-02-2024 Patient encounter procedure 12/02/2024 3:30 PM EST Office Visit [facility] [address] [place] [id number] Shawn Stout DO [address] [place] [address] [facility] Start: 11-22-2024 End: 02-21-2025 Renal function 2000 panel - Serum or Plasma RENAL FUNCTION PANEL Lab Routine CKD (chronic kidney disease) stage 4, GFR 15-29 ml/min ([facility]) Proteinuria, unspecified type 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, with long-term current use of insulin ([facility]) Benign hypertension with chronic kidney disease, stage IV ([facility]) Hyperkalemia Vitamin D deficiency Expected: 11/22/2024, Expires: 02/21/2025 [facility] Comment on above: Expected: 11/22/2024 , Expires: 02/21/2025 Start: 11-14-2024 End: 11-14-2024 Patient encounter procedure 11/14/2024 1:30 PM EST Office Visit [facility] [address] [place] [address] Fartun Skinner DO [address] [place] [address] [facility] [address] Start: 11-14-2024 End: 11-14-2024 Patient encounter procedure 11/14/2024 11:50 AM EST Procedure Visit [facility] [address] [place] [phone] Edgard Abdi DPM [address] [address] [facility] Start: 10-23-2024 Hemoglobin A1c measurement HbA1C [facility] Start: 09-26-2024 End: 09-26-2024 Patient encounter procedure 09/26/2024 1:20 PM EDT Office Visit [facility] [address] [place] [phone] Edgard Abdi DPM [address] [address] [facility] Start: 09-12-2024 End: 09-12-2024 Patient encounter procedure [facility] Comment on above: Type 2 diabetes mya itus with diabetic neuropathy, with long- term current use of insulin (CMS/HCC) (Primary Dx); Foot ulcer, right, with fat layer exposed (CMS/HCC); Acquired deformity of right toe Start: 09-05-2024 End: 09-05-2024 Patient encounter procedure 09/05/2024 1:30 PM EDT Procedure Visit [facility] [address] [facility] [address] [place] [address] Edgard Abdi DPM [address] [facility] [address] [place] [address] Foot ulcer, right, with fat layer exposed (CMS/HCC) (Primary Dx); Type 2 diabetes mellitus with diabetic neuropathy, with long-term current use of insulin (CMS/HCC); Pain due to onychomycosis of toenails of both feet [facility] Comment on above: Foot ulcer, right, w ith fat layer exposed (CMS/HCC) (Primary Dx); Type 2 diabetes mellitus with diabetic neuropathy, with long-term current use of insulin (CMS/HCC); Pain due to onychomycosis of toenails of both feet Start: 08-20-2024 Hemoglobin A1c measurement HbA1C [facility] Start: 08-02-2024 End: 11-01-2024 Renal function 2000 panel - Serum or Plasma RENAL FUNCTION PANEL Lab Routine CKD (chronic kidney disease) stage 4, GFR 15-29 ml/min ([facility]) Expected: 08/02/2024, Expires: 11/01/2024 [facility] Work Phone: Comment on above: Expected: 08/02/2024 , Expires: 11/01/2024 Start: 07-28-2024 Covid-19 Vaccine () Covid-19 Vaccine () [facility] Start: 07-28-2024 Influenza vaccination [facility] Start: 07-24-2024 End: 10-23-2024 Renal function 2000 panel - Serum or Plasma RENAL FUNCTION PANEL Lab Routine Hyperkalemia Expected: 07/24/2024, Expires: 10/23/2024 [facility] Work Phone: Comment on above: Expected: 07/24/2024 , Expires: 10/23/2024 Start: 07-23-2024 End: 10-22-2024 25-hydroxyvitamin D3 [Mass/volume] in Serum or Plasma [facility] Comment on above: Expected: 07/23/2024 , Expires: 10/22/2024 Start: 07-23-2024 End: 10-22-2024 Parathyrin.intact [Mass/volume] in Serum or Plasma [facility] Work Phone: Comment on above: Expected: 07/23/2024 , Expires: 10/22/2024 Start: 06-25-2024 End: 06-25-2024 Patient encounter procedure 06/25/2024 11:00 AM EDT Office Visit [facility] [address] [place] [address] Tiera Spangler APRN.SINTER PRESS OPERATOR [address] [place] [address] 3 month f/u [facility] Comment on above: 3 month f/u Start: 05-07-2024 Hemoglobin A1c measurement HbA1C [facility] Start: 05-03-2024 [facility] Start: 01-10-2024 Complete blood count Hemoglobin/Dhaval tocrit [facility] Start: 01-10-2024 Creatinine measurement Serum Creatin ine [facility] Start: 01-10-2024 HEMOGLOBIN/HEMATOCRIT HEMOGLOBIN/HEM ATOCRIT [facility] Start: 01-10-2024 SERUM CREATININE SERUM CREATININE Cl [facility] Start: 11-27-2023 Advance Directive Discussion Advance Directive Discussion [facility] Start: 11-27-2023 Behavioral Health Screening Behavioral Health Screening [facility] Start: 11-27-2023 Depression Assessment Depression Ass essment [facility] Start: 11-16-2023 Hemoglobin A1c measurement HbA1C [facility] Start: 11-16-2023 Hemoglobin A1c/Hemoglobin.total in Blood HbA1C [facility] Start: 11-08-2023 End: 02-07-2024 Renal function 2000 panel - Serum or Plasma RENAL FUNCTION PANEL Lab Routine Benign hypertension with chronic kidney disease, stage IV (HCC) Expected: 11/08/2023, Expires: 02/07/2024 [facility] Work Phone: Comment on above: Expected: 11/08/2023 , Expires: 02/07/2024 Start: 10-14-2023 End: 12-14-2023 25-hydroxyvitamin D3 [Mass/volume] in Serum or Plasma VITAMIN D 25 HYDROXY Lab Routine Benign hypertension with chronic kidney disease, stage IV (HCC) CKD (chronic kidney disease) stage 4, GFR 15-29 ml/min (HCC) Proteinuria, unspecified type Hyperkalemia 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, unspecified whether mcfp insulin use (HCC) Expected: 10/14/2023, Expires: 12/14/2023 [facility] Work Phone: Comment on above: Expected: 10/14/2023 , Expires: 12/14/2023 Start: 10-14-2023 End: 12-14-2023 ALBUMIN/CREAT RATIO RND UR ALBUMIN/CREAT RATIO RND UR Lab Routine Benign hypertension with chronic kidney disease, stage IV (HCC) CKD (chronic kidney disease) stage 4, GFR 15-29 ml/min (HCC) Proteinuria, unspecified type Hyperkalemia 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, unspecified whether mcfp insulin use (HCC) Expected: 10/14/2023, Expires: 12/14/2023 [facility] Work Phone: Comment on above: Expected: 10/14/2023 , Expires: 12/14/2023 Start: 10-14-2023 End: 12-14-2023 CBC panel - Blood by Automated count CBC Lab Routine Benign hypertension with chronic kidney disease, stage IV (HCC) CKD (chronic kidney disease) stage 4, GFR 15-29 ml/min (HCC) Proteinuria, unspecified type Hyperkalemia 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, unspecified whether terminal block assembler insulin use (HCC) Expected: 10/14/2023, Expires: 12/14/2023 [facility] Work Phone: Comment on above: Expected: 10/14/2023 , Expires: 12/14/2023 Start: 10-14-2023 End: 12-14-2023 Parathyrin.intact [Mass/volume] in Serum or Plasma PTH INTACT BLD Lab Routine Benign hypertension with chronic kidney disease, stage IV (HCC) CKD (chronic kidney disease) stage 4, GFR 15-29 ml/min (HCC) Proteinuria, unspecified type Hyperkalemia 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, unspecified whether terminal block assembler insulin use (HCC) Expected: 10/14/2023, Expires: 12/14/2023 [facility] Work Phone: Comment on above: Expected: 10/14/2023 , Expires: 12/14/2023 Start: 10-14-2023 End: 12-14-2023 Renal function 2000 panel - Serum or Plasma RENAL FUNCTION PANEL Lab Routine Benign hypertension with chronic kidney disease, stage IV (HCC) CKD (chronic kidney disease) stage 4, GFR 15-29 ml/min (HCC) Proteinuria, unspecified type Hyperkalemia 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, unspecified whether m[facility]p insulin use (HCC) Expected: 10/14/2023, Expires: 12/14/2023 [facility] Work Phone: Comment on above: Expected: 10/14/2023 , Expires: 12/14/2023 Start: 08-11-2023 Hemoglobin A1c/Hemoglobin.total in Blood HBA1C [facility] Start: 07-28-2023 Covid-19 Vaccine () Covid-19 Vaccine () [facility] Start: 07-28-2023 [facility] Start: 05-03-2023 HEMOGLOBIN/HEMATOCRIT HEMOGLOBIN/HEM ATOCRIT [facility] Start: 05-03-2023 Hepatitis B surface antibody level LDL CHOLESTEROL [facility] Start: 05-03-2023 SERUM CREATININE SERUM CREATININE Cl [facility] Start: 01-10-2023 End: 03-12-2023 25-hydroxyvitamin D3 [Mass/volume] in Serum or Plasma [facility] Work Phone: Comment on above: Expected: 01/10/2023 , Expires: 03/12/2023 Start: 01-10-2023 End: 03-12-2023 Creatinine [Mass/volume] in Urine collected for unspecified duration [facility] Work Phone: Comment on above: Expected: 01/10/2023 , Expires: 03/12/2023 Start: 01-10-2023 End: 03-12-2023 Protein [Mass/volume] in Urine [facility] Work Phone: Comment on above: Expected: 01/10/2023 , Expires: 03/12/2023 Start: 01-07-2023 COVID-19 VACCINE (5 - Moderna series) COVID-19 VACCINE (5 - Moderna series) [facility] Start: 12-21-2022 SERUM CREATININE SERUM CREATININE Cl [facility] Start: 11-27-2022 ADVANCE DIRECTIVE DISCUSSION ADVANCE DIRECTIVE DISCUSSION [facility] Start: 11-27-2022 DEPRESSION ASSESSMENT DEPRESSION ASS ESSMENT [facility] Start: 07-28-2022 Influenza vaccination C [facility] Start: 05-06-2022 COVID-19 VACCINE (4 - Booster for Moderna series) COVID-19 VACCINE (4 - Booster for Moderna series) [facility] Start: 12-29-2021 Hemoglobin A1c/Hemoglobin.total in Blood HBA1C [facility] Start: 11-27-2021 ADVANCE DIRECTIVE DISCUSSION ADVANCE DIRECTIVE DISCUSSION [facility] Start: 09-18-2021 Hemoglobin A1c/Hemoglobin.total in Blood HBA1C [facility] Start: 11-12-2020 Hepatitis B surface antibody level LDL CHOLESTEROL [facility] Start: 2008 BONE DENSITY BONE DENSITY [facility] Start: 2008 Bone Density Screening Bone Density Screening [facility] Start: 2008 Pneumococcal Vaccine : 65+ Years (1 of 1 - PCV) Pneumococcal Vaccine: 65+ Years (1 of 1 - PCV) [facility] Start: 2008 Screening for osteoporosis Bone Density Screening [facility] Start: 2003 Hepatitis B Vaccine (1 of 3 - Risk 3-dose series) Hepatitis B Vaccine (1 of 3 - Risk 3-dose series) [facility] Start: 2003 RSV Vaccine (1 - 1-d ose 60+ series) RSV Vaccine (1 - 1-dose 60+ series) [facility] Start: 1993 SHINGRIX VACCINE (1 of 2) SHINGRIX VACCINE (1 of 2) [facility] Start: 1962 Urine microalbumin profile DTAP,TDAP,TD (1 - Tdap) [facility] Start: 1961 ANNUAL PCP TEAM OUTSIDE [employer]S SALES DOMENIC DISEASE VISIT ANNUAL PCP TEAM CHRONIC DISEASE VISIT [facility] Start: 1961 Anxiety Screening Anxiety Screening [facility] Start: 1961 BP CONTROLLED (<130/80) BP CONTROLLE D (<130/80) [facility] Start: 1961 Depression Screening Depression Scre ening [facility] Start: 1955 Adult depression screening assessment DEPRESSION SCREENING [facility] Start: 1953 3 comp foot exam completed DIABETIC FOOT EXAM [facility] Start: 1953 Diabetic foot examination Diabetic Foot Exam [facility] Start: 1953 Glaucoma screening Dilated Retinal E xam [facility] Start: 1953 Hepatitis C antibody , confirmatory test DILATED RETINAL EXAM [facility] Start: 1949 Pneumococcal Vaccine : 65+ (1 - PCV) Pneumococcal Vaccine: 65+ (1 - PCV) [facility] Start: 1949 Pneumococcal Vaccine : 65+ (1 of 2 - PCV) Pneumococcal Vaccine: 65+ (1 of 2 - PCV) [facility] Start: 1949 PNEUMOCOCCAL: 65+ (1 - PCV) PNEUMOCOCCAL: 65+ (1 - PCV) [facility] Patient Education Know your [facility] Work Phone: [facility] Immunizations Immunization Date Immunization Notes Care Provider Fa cili 10-17-2022 influenza, injectabl e, quadrivalent, preservative free Edgard Abdi DPM Work Phone: [facility] 10-17-2022 influenza virus vacc ine, unspecified formulation Tiera Spangler WATCH INSPECTOR FINAL MOVEMENT.SINTER PRESS OPERATOR Work Phone: [facility] 09-28-2022 influenza, high dose seasonal, preservative-free Edgard Abdi DPM Work Phone: [facility] 09-06-2022 Moderna Bivalent Figueroa ster Vaccination Edgard Lupillo DPM Work Phone: [facility] 01-05-2022 Moderna SARS-CoV-2 Booster Vaccination Edgard Lupillo DPM Work Phone: [facility] 12-05-2021 diphtheria, tetanus toxoids and pertussis vaccine Edgard Lupillo DPM Work Phone: [facility] 12-05-2021 tetanus toxoid, redu manny diphtheria toxoid, and acellular pertussis vaccine, adsorbed Edgard Brown DPM Work Phone: [facility] 10-20-2020 Seasonal trivalent influenza vaccine, adjuvanted, preservative free Edgardjulio Abdi DPM Work Phone: [facility] 09-10-2019 influenza, seasonal, injectable, preservative free Edgard Abdi DPM Work Phone: [facility] 08-27-2016 seasonal influenza, intradermal, preservative free Edgard Abdi DPM Work Phone: [facility] Payers Date Payer Category Payer Self-pay [id number] 2022 Unknown AARP AARP [id number] 2022-Present [address] [place] [address] [id number] 2018 Private Health Insurance [facility] AARP SUPPLEMENT [id number] 2018-Present [phone] [address] [place] [address] Indemnity [id number] 2018 Private Health Insurance [id number] .[id number] 2014 Unknown [id number] 2008 Medicare MEDICARE MEDICAR E A AND B [id number] 2008-Present [phone] [facility] [place] [address] Medicare [id number] .[id number] 2008 Medicare [id number] 1.13.159.2 .[id number] 1959 Medicare [id number] 1959 Unknown [id number] 1943 Unknown [id number] 2.16.840.1.816697.3.579.2 .593 1943 Unknown [id number] 2.16.840.1.524743.3.579.2 .593 1943 Unknown [id number] 2.16.840.1.604703.3.579.2 .593 1943 Unknown [id number] 2.16.840.1.056648.3.579.2 .593 1943 Unknown [id number] 2.16.840.1.566904.3.579.2 .593 1943 Unknown [id number] 2.16.840.1.233472.3.579.2 .593 1943 Unknown [id number] 2.16.840.1.071299.3.579.2 .593 1943 Unknown [id number] 2.16.840.1.872040.3.579.2 .727 1943 Unknown [id number] 2.16.840.1.047395.3.579.2 .727 1943 Unknown [id number] 2.16.840.1.346211.3.579.2 .727 1943 Unknown [id number] 2.16.840.1.459639.3.579.2 .727 1943 Unknown [id number] 2.16.840.1.783033.3.579.2 .1259 1943 Unknown [id number] 2.16.840.1.609159.3.579.2 .1259 1943 Unknown [id number] 2.16.840.1.113991.3.579.2 .1259 1943 Unknown [id number] 2.16.840.1.830958.3.579.2 .1259 1943 Unknown [id number] 2.16.840.1.133227.3.579.2 .1259 1943 Unknown [id number] 2.16.840.1.994223.3.579.2 .1259 1943 Unknown [id number] 2.16840.1.017237.3.579.2 .125 1943 Unknown [id number] 2.16840.1.839664.3.579.2 .1259 1943 Unknown [id number] 2.16840.1.813708.3.579.2 .1259 1943 Unknown [id number] 2.16.840.1.056303.3.579.2 .1259 1943 Unknown [id number] 2.16.840.1.280078.3.579.2 .1259 1943 Unknown [id number] 2.16.840.1.605755.3.579.2 .1259 1943 Unknown [id number] 2.16.840.1.385052.3.579.2 .1259 1943 Unknown [id number] 2.16.840.1.194060.3.579.2 .1259 1943 Unknown [id number] 2.16.840.1.260459.3.579.2 .1259 1943 Unknown [id number] 2.16.840.1.504661.3.579.2 .1259 1943 Unknown [id number] 2.16.840.1.222137.3.579.2 .1259 1943 Unknown [id number] 2.16.840.1.839900.3.579.2 .1258 1943 Unknown [id number] 2.16.840.1.098376.3.579.2 .1259 1943 Unknown [id number] 2.16.840.1.026089.3.579.2 .1259 1943 Unknown [id number] 2.16.840.1.243669.3.579.2 .1258 1943 Unknown [id number] 2.16.840.1.966070.3.579.2 .1258 1943 Unknown [id number] 2.16.840.1.872585.3.579.2 .1258 1943 Unknown [id number] 2.16.840.1.480665.3.579.2 .1258 1943 Unknown [id number] 2.16.840.1.405393.3.579.2 .1259 Unknown [id number] 2.16.840.1.005738.3.579.2 .531 Social History Date Type Detail Facility Start: 11-12-2019 End: 04-19-2023 Tobacco smoking status NVIS Never smoked tobacco [facility] Start: 11-12-2019 End: 04-19-2023 Tobacco use and exposure Smokeless tobacco non-user [facility] Start: 05-03-2022 End: 09-12-2024 Alcohol intake Lifetime non-drinker (finding) [facility] Start: 11-12-2019 History SDOH Alcohol Frequency 1 [facility] Start: 1945 Sex Assigned At Not on file [facility] Start: 04-23-2022 End: 05-03-2022 Exposure to SARS-CoV-2 (event) Not sure [facility] Start: 11-12-2019 End: 08-19-2024 History of Social function [facility] Work Phone: Start: 11-12-2019 End: 08-19-2024 Alcohol Use Disorder Identification Test - Consumption [AUDIT-C] [facility] Work Phone: How often to you hav e a drink containing alcohol? Never [facility] Work Phone: Average Number of Drinks Not on file [facility] Start: 1945 Sex Assigned At Female [facility] Start: 12-18-2023 Alcohol Comment Caffeine intake: 1-2 cups/day coffee [facility] Procedure Code Equipment Code Equipment Origin al Text Equipment Identifier Dates USE FOUR TIMES A DAY [id number] Star t: 07-23-2024 Goals Date Patient Goal Desired Activity /State Clinical Notes 05-03-2022 to 09-12-2024 Edgard Abdi DPM - 09/12/2024 1:30 PM EDTEdgard Abdi DPM - 09/05/2024 1:30 PM EDTTelephone Encounter - Katt Avalos OCCA - 08/02/2024 11:01 AM EDT Note Date & Type Note Facility 09-12-2024 History of Presen t illness Narrative atient: Varsha Chaudhry : 1945 PCP: Ken Norton MD SUBJECTIVE Patient present today for follow up of ulceration to right hallux. Pt denies any n/f/v/c. Patient has had integra wound graft in the past. Pt is a DM2. Patient states history of uncontrolled sugars and is working with primary care for dietary control. Patient present today for follow up of ulceration to right foot. Pt denies any n/f/v/c. Patient states that they have been using the following treatments for the ulcer of Betadine with off loading pad to distal right hallux Pt is a DM2. Allergies: Allergies Allergen Reactions Cephalexin Other Reaction(s): rash/nausea Ciprofloxacin Other Reaction(s): rash/itching, rash/itching Acetaminophen Rash Benzonatate Rash Clindamycin Rash Codeine Rash Penicillins Rash Past Medical History: Past Medical History: Diagnosis Date Acquired deformity of right toe At risk for falls Carpal tunnel syndrome 2014 Deformity of toe of left foot Diabetes mellitus (CMS/HCC) Diabetes mellitus due to underlying condition with diabetic neuropathy, unspecified (CMS/HCC) Diabetes mellitus type 2 with neurological manifestations (CMS/HCC) Foot pain, left Foot pain, right History of ovarian cancer Hyperlipidemia (CMS/HCC) Hypertension (CMS/HCC) Obesity (BMI 30-39.9) OM (onychomycosis) Osteoporosis (CMS/HCC) Tinea pedis Toe pain, left Toe pain, right Medications: Current Outpatient Medications: alpha tocopherol (Vitamin E) 1000 units capsule, Take 1,000 Units by mouth in the morning., Disp: , Rfl: aspirin 81 MG chewable tablet, Chew 81 mg in the morning., Disp: , Rfl: BILBERRY, VACCINIUM MYRTILLUS, PO, Bilberry, Disp: , Rfl: biotin 1 MG capsule, Take 1 capsule by mouth in the morning., Disp: , Rfl: carvedilol (Coreg) 25 MG tablet, Take 25 mg by mouth in the morning and 25 mg before bedtime., Disp: , Rfl: Cholecalciferol (Vitamin D) 50 MCG (1999) capsule, 2 capsules 1 (one) time each day at the same time., Disp: , Rfl: Continuous Glucose Wire Frame Dipper (FreeStyle Gualberto 3 Raymond) device, 1 Device See administration instructions, Disp: 1 each, Rfl: 0 Continuous Glucose Sensor (FreeStyle Gualberto 3 Sensor) misc, Inject 1 Device under the skin every 14 (fourteen) days, Disp: 6 each, Rfl: 3 finerenone (Kerendia) 10 MG tablet, Take 20 mg by mouth 1 (one) time each day at the same time., Disp: , Rfl: insulin glargine (Lantus SoloStar) 100 UNIT/ML pen, Inject 15 Units under the skin in the morning., Disp: 15 mL, Rfl: 3 insulin lispro-aabc (Lyumjev KwikPen) 100 UNIT/ML pen, 8 units shake, 10 units lunch, 16 units dinner plus correction 1:75 > 150 mg/dl (max daily 50 units), Disp: 45 mL, Rfl: 3 insulin pen needle (B-D UF III MINI PEN NEEDLES) 31G x 5 mm misc, USE FOUR TIMES A DAY, Disp: 400 each, Rfl: 3 Lokelma 10 g packet, TAKE 1 PACKET BY MOUTH ONCE DAILY -MIX POWDER IN 45ML OF WATER, STIR AND DRINK IMMEDIATELY, Disp: , Rfl: magnesium oxide 500 MG tablet, Take 500 mg by mouth in the morning., Disp: , Rfl: montelukast (Singulair) 10 MG tablet, Take 10 mg by mouth in the morning., Disp: , Rfl: rosuvastatin (Crestor) 10 MG tablet, Take 10 mg by mouth at bedtime., Disp: , Rfl: sacubitril-valsartan (Entresto) 97-103 MG tablet, Take 1 tablet by mouth every 12 (twelve) hours., Disp: , Rfl: torsemide (Demadex) 20 MG tablet, Take 2 tablets by mouth in the morning., Disp: , Rfl: Social History: Social History Socioeconomic History Marital status: Spouse name: Not on file Number of children: Not on file Years of education: Not on file Highest education level: Not on file Occupational History Not on file Tobacco Use Smoking status: Never Smokeless tobacco: Never Vaping Use Vaping status: Unknown Substance and Sexual Activity Alcohol use: Never Comment: Caffeine intake: 1-2 cups/day coffee Drug use: Never Sexual activity: Defer Partners: Decline to Answer Other Topics Concern Not on file Social History Narrative Not on file Social Drivers of Health Financial Resource Strain: Not on file Food Insecurity: Not on file Transportation Needs: Not on file Physical Activity: Not on file Stress: Not on file Social Connections: Not on file Intimate Partner Violence: Not on file Housing Stability: Not on file ROS: Gastrointestinal: denies abdominal pain, ulcers, or changes in appetite or bowel habits Musculoskeletal: Positive generalized arthritis to joints and denies loss of strength. Cardiovascular: denies CP, palpitations, irregular rhythms OBJECTIVE LE EXAM: DERM: Elongated thick yellow crumbly nails digits 1 through 10. Negative hair growth with thin shiny atrophic skin bilaterally Distal right hallux has a 1.0 cm x 1.0 cm x 0.2 cm subcutaneous thickness depth ulceration with slight fibrous slough and negative erythema negative probe to bone with slight serous drainage VASC: Positive DP and negative PT pedal pulses NEURO: 5.07 Mcdaniel Karthik monofilament test diminished to digits and forefoot bilaterally 125Hz tuning fork diminished to 1st MPJ bilaterally ORTHO: Positive pain on palpation to nails 1 through 10 Negative palpation to right hallux Notable hallux malleus to the right great toe ASSESSMENT 1. Type 2 diabetes mellitus with diabetic neuropathy, with long-term current use of insulin (CMS/HCC) 2. Foot ulcer, right, with fat layer exposed (CMS/HCC) 3. Acquired deformity of right toe PLAN Sharp debridement with 15 blade of subcutaneous ulceration to right foot with active bleeding noted and removal and excision of fibrotic and necrotic tissue to wound and DSD applied with neosporin. Pt to continue with Betadine daily Discussed conservative and surgical treatment options for patient today including postoperative time frame and surgical procedure in detail. Patient may continue with conservative treatments including [id number] anti-inflammatories and other treatments suggested today. Patient may want to be scheduled for surgical intervention in the near future. Discussed in detail for quite some period of time different type of treatment options including possible Dermagraft treatment to the wound but patient is to use walking boot with minimal weight-bearing to heel and offload as much as possible. Did discuss possible IPJ joint fusion of the hallux however given current status of brittle diabetic and sugars up to 350-400 mg dL range at times did not feel that this was warranted We did discuss possible split-thickness skin graft and minimal to no weight-bearing for the patient and agreed that this would be the most beneficial at this time and will scheduled for split-thickness skin graft. Edgard Abdi DPM documented in this encounter [facility] 09-05-2024 History of Presen t illness Narrative atient: Varsha Chaudhry : 1945 PCP: Ken Norton MD SUBJECTIVE Patient present today for follow up of ulceration to right hallux. Pt denies any n/f/v/c. Patient has had integra wound graft in the past. Pt is a DM2. Patient states history of uncontrolled sugars and is working with primary care for dietary control. Patient present today for follow up of ulceration to right foot. Pt denies any n/f/v/c. Patient states that they have been using the following treatments for the ulcer of pierce in the past. Pt is a DM2. Patient states return of ulceration over the past week and has some watery type drainage with treatment of Neosporin and dry sterile dressing Patient presents today with a CC of elongated, thick nails. Pt states nails have been elongated and thick for many years and cause pain with ambulation in shoegear. Pt has tried previous treatment with minimal relief. Pt presents today for nail care and treatment. Patient is DM2 Allergies: Allergies Allergen Reactions Cephalexin Other Reaction(s): rash/nausea Ciprofloxacin Other Reaction(s): rash/itching, rash/itching Acetaminophen Rash Benzonatate Rash Clindamycin Rash Codeine Rash Penicillins Rash Past Medical History: Past Medical History: Diagnosis Date Acquired deformity of right toe At risk for falls Carpal tunnel syndrome 2013 Deformity of toe of left foot Diabetes mellitus (CMS/HCC) Diabetes mellitus due to underlying condition with diabetic neuropathy, unspecified (CMS/HCC) Diabetes mellitus type 2 with neurological manifestations (CMS/HCC) Foot pain, left Foot pain, right History of ovarian cancer Hyperlipidemia (CMS/HCC) Hypertension (CMS/HCC) Obesity (BMI 30-39.9) OM (onychomycosis) Osteoporosis (CMS/HCC) Tinea pedis Toe pain, left Toe pain, right Medications: Current Outpatient Medications: alpha tocopherol (Vitamin E) 1000 units capsule, Take 1,000 Units by mouth in the morning., Disp: , Rfl: aspirin 81 MG chewable tablet, Chew 81 mg in the morning., Disp: , Rfl: BILBERRY, VACCINIUM MYRTILLUS, PO, Bilberry, Disp: , Rfl: biotin 1 MG capsule, Take 1 capsule by mouth in the morning., Disp: , Rfl: carvedilol (Coreg) 25 MG tablet, Take 25 mg by mouth in the morning and 25 mg before bedtime., Disp: , Rfl: Cholecalciferol (Vitamin D) 50 MCG (1999) capsule, 2 capsules 1 (one) time each day at the same time., Disp: , Rfl: Continuous Glucose Wire Frame Dipper (FreeStyle Gualberto 3 Raymond) device, 1 Device See administration instructions, Disp: 1 each, Rfl: 0 Continuous Glucose Sensor (FreeStyle Gualberto 3 Sensor) [facility] [place], Inject 1 Device under the skin every 14 (fourteen) days, Disp: 6 each, Rfl: 3 finerenone (Kerendia) 10 MG tablet, Take 20 mg by mouth 1 (one) time each day at the same time., Disp: , Rfl: insulin glargine (Lantus SoloStar) 100 UNIT/ML pen, Inject 15 Units under the skin in the morning., Disp: 15 mL, Rfl: 3 insulin lispro-aabc (Lyumjev KwikPen) 100 UNIT/ML pen, 8 units shake, 10 units lunch, 16 units dinner plus correction 1:75 > 150 mg/dl (max daily 50 units), Disp: 45 mL, Rfl: 3 insulin pen needle (B-D UF III MINI PEN NEEDLES) 31G x 5 mm misc, USE FOUR TIMES A DAY, Disp: 400 each, Rfl: 3 Lokelma 10 g packet, TAKE 1 PACKET BY MOUTH ONCE DAILY -MIX POWDER IN 45ML OF WATER, STIR AND DRINK IMMEDIATELY, Disp: , Rfl: magnesium oxide 500 MG tablet, Take 500 mg by mouth in the morning., Disp: , Rfl: montelukast (Singulair) 10 MG tablet, Take 10 mg by mouth in the morning., Disp: , Rfl: rosuvastatin (Crestor) 10 MG tablet, Take 10 mg by mouth at bedtime., Disp: , Rfl: sacubitril-valsartan (Entresto) 97-103 MG tablet, Take 1 tablet by mouth every 12 (twelve) hours., Disp: , Rfl: torsemide (Demadex) 20 MG tablet, Take 2 tablets by mouth in the morning., Disp: , Rfl: Social History: Social History Socioeconomic History Marital status: Spouse name: Not on file Number of children: Not on file Years of education: Not on file Highest education level: Not on file Occupational History Not on file Tobacco Use Smoking status: Never Smokeless tobacco: Never Vaping Use Vaping status: Unknown Substance and Sexual Activity Alcohol use: Never Comment: Caffeine intake: 1-2 cups/day coffee Drug use: Never Sexual activity: Defer Partners: Decline to Answer Other Topics Concern Not on file Social History Narrative Not on file Social Determinants of Health Financial Resource Strain: Not on file Food Insecurity: Not on file Transportation Needs: Not on file Physical Activity: Not on file Stress: Not on file Social Connections: Not on file Intimate Partner Violence: Not on file Housing Stability: Not on file ROS: General: denies fever, chills, fatigue, malaise OBJECTIVE LE EXAM: DERM: Elongated thick yellow crumbly nails digits 1 through 10. Negative hair growth with thin shiny atrophic skin bilaterally Distal right hallux has a 1.0 cm x 1.0 cm x 0.2 cm subcutaneous thickness depth ulceration with fibrous slough and negative erythema negative probe to bone with slight serous drainage VASC: Negative DP and negative PT pedal pulses NEURO: 5.07 Mcdaniel Karthik monofilament test diminished to digits and forefoot bilaterally 125Hz tuning fork diminished to 1st MPJ bilaterally ORTHO: Positive pain on palpation to nails 1 through 10 Negative palpation to right hallux Notable hallux malleus to the right great toe ASSESSMENT 1. Foot ulcer, right, with fat layer exposed (CMS/HCC) 2. Type 2 diabetes mellitus with diabetic neuropathy, with long-term current use of insulin (CMS/HCC) 3. Pain due to onychomycosis of toenails of both feet 4. Foot ulceration, right, with fat layer exposed (CMS/HCC) 5. Acquired deformity of right toe PLAN Sharp debridement with 15 blade of subcutaneous ulceration to right foot with active bleeding noted and removal and excision of fibrotic and necrotic tissue to wound and DSD applied with neosporin. Pt to continue with Betadine daily Discussed proper foot care with patient today. Debride nails in length and thickness digits 1 through 10 Patient educated today on proper diabetic foot care including monitoring feet daily for any signs of infection openings in the skin or irregularities to both feet. Patient had a diabetic neurological exam today to both their feet and discussed proper shoe gear. Discussed possible right hallux IPJ arthrodesis in the future to correct digital deformity that is contributing to the issue of recurrent ulceration Edgard Abdi DPM documented in this encounter [facility] 08-02-2024 Telephone encounter Note Called and spoke to Pt in regards to below message. Pt understood and will repeat labs. EFE Schulte Please call patient Her potassium is better on the increased lokelma of 15gm daily Scr is a bit above baseline at 2.3 Please have her repeat the labs nonfasting in 1-2 weeks in [place], orders are in Tiera Spangler APRN.SINTER PRESS OPERATOR [facility] 08-02-2024 Miscellaneous Notes Called and spoke to Pt in regards to below message. Pt understood and will repeat labs. EFE Schulte Please call patient Her potassium is better on the increased lokelma of 15gm daily Scr is a bit above baseline at 2.3 Please have her repeat the labs nonfasting in 1-2 weeks in [place], orders are in Tiera Spangler APRN.SINTER PRESS OPERATOR documented in this encounter [facility] 08-02-2024 Telephone encounter Note Please call patient Her potassium is better on the increased lokelma of 15gm daily Scr is a bit above baseline at 2.3 Please have her repeat the labs nonfasting in 1-2 weeks in [place], orders are in Tiera Spangler APRN.SINTER PRESS OPERATOR [facility] 08-02-2024 Miscellaneous Notes Please call patient Her potassium is better on the increased lokelma of 15gm daily Scr is a bit above baseline at 2.3 Please have her repeat the labs nonfasting in 1-2 weeks in [place], orders are in Tiera Spangler APRN.SINTER PRESS OPERATOR documented in this encounter [facility] 07-24-2024 Telephone encounter Note Called and spoke to Pt in regards to below message. Pt understood and will do as suggested. Please call pt re: labs Kidney function is stable Potassium is a little high at 5.4 Continue lokelma. I am going to increase it to 15gm daily I will order a new shipment to be sent Labs in [place] 1 week after she starts increase, nonfasting ARABELLA Larson OCCA [facility] 07-24-2024 Miscellaneous Notes Called and spoke to Pt in regards to below message. Pt understood and will do as suggested. Please call pt re: labs Kidney function is stable Potassium is a little high at 5.4 Continue lokelma. I am going to increase it to 15gm daily I will order a new shipment to be sent Labs in [place] 1 week after she starts increase, nonfasting ARABELLA Larson OCCA Please call pt re: labs Kidney function is stable Potassium is a little high at 5.4 Continue lokelma. I am going to increase it to 15gm daily I will order a new shipment to be sent Labs in [place] 1 week after she starts increase, nonfasting Tiera Spangler APRN.CNP documented in this encounter [facility] 07-24-2024 Telephone encounter Note Please call pt re: labs Kidney function is stable Potassium is a little high at 5.4 Continue lokelma. I am going to increase it to 15gm daily I will order a new shipment to be sent Labs in [place] 1 week after she starts increase, nonfasting Tiera Spangler APRN.CNP [facility] 07-23-2024 Note HNO ID: [id number] Author: TIERA SPANGLER APRN.CNP Service: ? Author Type: Nurse Practitioner Type: Progress Notes Filed: 07/23/2024 11:09 Note Text: Pt is an 79 yo female here for follow up CKD stage 4 in the setting of proteinuria, DM as well as HTN She was last seen 01/2024. Follows locally with PCP/cardiology for CHF-on kerendia and entresto. Seen yesterday Baseline Scr 1.8-2.2. No complaints Home BPs 138/75 135/61 126/45 139/60 130/46 138/78 127/62 PAST MEDICAL HISTORY 1977: Diabetes mellitus (HCC) No date: HTN (hypertension) 1972: Uterine cancer (HCC) Comment: hysterectomy Creatinine Date Value Ref Range Status 02/13/2024 2.02 (H) 0.58 - 0.96 mg/dL Final 01/10/2023 2.00 (H) 0.58 - 0.96 mg/dL Final 05/03/2022 1.99 (H) 0.58 - 0.96 mg/dL Final Potassium Date Value Ref Range Status 02/13/2024 4.3 3.7 - 5.1 mmol/L Final 01/10/2023 4.9 3.7 - 5.1 mmol/L Final 05/03/2022 5.7 (H) 3.7 - 5.1 mmol/L Final Exam General: NAD, alert Lungs: CTA bilaterally Heart: RRR, + murmur Extremities: No edema BP - standardized method Pulse 1 BP #1: 162/84 Pulse #1: 76 beats/min 2 BP #2 : 165/84 Pulse #2 : 76 beats/min 3 BP #3 : 155/79 Pulse #3 : 75 beats/min Average Average BP: 161/82 Average Pulse: 75 beats/min Orthostatic vitals Supine Sitting Standing Standing BP : 145/70 Standing pulse : 71 BP cuff location BP cuff location: Left upper arm BP cuff size BP cuff size: large adult Comments for BP values First BP (right) First BP (left) Impression/plan CKD stage 4-proteinuric, in the setting of HTN and DM-Scr baseline ~ 1.8-2.2-has been stable. Update labs. She is on ARB and Kerendia. Is not using NSAIDs. HTN-well controlled on current regimen at home Volume stable. Hyperkalemia-now on lokelma per cardiology-update labs Vitamin D deficiency-on supplement 4000U D 3-follow labs DM-she follows in [place], [place]. Update A1C. Continue endo follow up Plan Update labs Follow up 4-6 months Tiera Spangler APRN.SINTER PRESS OPERATOR [facility] 07-23-2024 History of Presen t illness Narrative Pt is an 79 yo female here for follow up CKD stage 4 in the setting of proteinuria, DM as well as HTN She was last seen 01/2024. Follows locally with PCP/cardiology for CHF-on kerendia and entresto. Seen yesterday Baseline Scr 1.8-2.2. No complaints Home BPs 138/75 135/61 126/45 139/60 130/46 138/78 127/62 PAST MEDICAL HISTORY 1977: Diabetes mellitus (HCC) No date: HTN (hypertension) 1971: Uterine cancer (HCC) Comment: hysterectomy Creatinine Date Value Ref Range Status 02/13/2024 2.02 (H) 0.58 - 0.96 mg/dL Final 01/10/2023 2.00 (H) 0.58 - 0.96 mg/dL Final 05/03/2022 1.99 (H) 0.58 - 0.96 mg/dL Final Potassium Date Value Ref Range Status 02/13/2024 4.3 3.7 - 5.1 mmol/L Final 01/10/2023 4.9 3.7 - 5.1 mmol/L Final 05/03/2022 5.7 (H) 3.7 - 5.1 mmol/L Final Exam General: NAD, alert Lungs: CTA bilaterally Heart: RRR, + murmur Extremities: No edema BP - standardized method Pulse 1 BP #1: 162/84 Pulse #1: 76 beats/min 2 BP #2 : 165/84 Pulse #2 : 76 beats/min 3 BP #3 : 155/79 Pulse #3 : 75 beats/min Average Average BP: 161/82 Average Pulse: 75 beats/min Orthostatic vitals Supine Sitting Standing Standing BP : 145/70 Standing pulse : 71 BP cuff location BP cuff location: Left upper arm BP cuff size BP cuff size: large adult Comments for BP values First BP (right) First BP (left) Impression/plan CKD stage 4-proteinuric, in the setting of HTN and DM-Scr baseline ~ 1.8-2.2-has been stable. Update labs. She is on ARB and Kerendia. Is not using NSAIDs. HTN-well controlled on current regimen at home Volume stable. Hyperkalemia-now on lokelma per cardiology-update labs Vitamin D deficiency-on supplement 4000U D 3-follow labs DM-she follows in [place], [place]. Update A1C. Continue endo follow up Plan Update labs Follow up 4-6 months Tiera Spangler APRN.DORINA documented in this encounter [facility] 06-18-2024 Telephone encounter Note Spoke with pt, offered to hand patient requested forms at scheduled appt on 06/25/24 with Tiera Spangler. Pt declined and stated she would be in [facility] on 06/20/24. [employer] nicole, Lokelma cards, and Lokelma prescription have been placed in an envelope in prescription box behind AVW2-2 behind check-out. Patient is to fill out page one of application and leave for Tiera. Please place completed application in Tiera's mailbox once completed by patient. *Patient plans to seed cone picker packet 06/20/24 in the AM* Viola Vidal MA [facility] 06-18-2024 Miscellaneous Notes Spoke with pt, offered to hand patient requested forms at scheduled appt on 06/25/24 with Tiera Spangler. Pt declined and stated she would be in [facility] on 06/20/24. [employer]&ME nicole, Lokelma cards, and Lokelma prescription have been placed in an envelope in prescription box behind AVW2-2 behind check-out. Patient is to fill out page one of application and leave for Tiera. Please place completed application in Tiera's mailbox once completed by patient. *Patient plans to seed cone picker packet 06/20/24 in the AM* Viola Vidal MA Returned call to pt She is on lokelma 10gm daily She has been getting samples from PCP and she has no more samples-she called insurance and it is 700-800 dollars She prefers to stay on lokelma I will have CRISTELA fill out assistance application for pt I will also have MA mail voucher and free trial coupon to patient Tiera Spangler APRN.CNP Varsha is calling Tiera Spangler RD today with concern regarding Medication Assistance (LOKELMA). Pt states provider told her she would help try to get her a lower cost on LOKELMA. Please advise. Patient has been identified by name and birthdate. Duration of symptoms: N/A Person calling: self Call patient at: at home [phone] (home) [phone] (cell) Was an appointment scheduled: No Closing statement: Results or non-symptom based questions: Thank you for calling [facility], your call will be returned within the next business day. Lela Abdi documented in this encounter [facility] 06-18-2024 Telephone encounter Note Returned call to pt She is on lokelma 10gm daily She has been getting samples from PCP and she has no more samples-she called insurance and it is 700-800 dollars She prefers to stay on lokelma I will have MA fill out assistance application for pt I will also have MA mail voucher and free trial coupon to patient Tiera Spangler APRN.DORINA [facility] 06-18-2024 Telephone encounter Note Varsha is calling Tiera Spangler RD today with concern regarding Medication Assistance (LOKELMA). Pt states provider told her she would help try to get her a lower cost on LOKELMA. Please advise. Patient has been identified by name and birthdate. Duration of symptoms: N/A Person calling: self Call patient at: at home [phone] (home) [phone] (cell) Was an appointment scheduled: No Closing statement: Results or non-symptom based questions: Thank you for calling [facility], your call will be returned within the next business day. Lela Abdi [facility] 03-08-2024 Miscellaneous Notes Received labs Na 143, K 4.5, Chloride 107, Bicarb 26.8, BUN 90, Creatinine 1.98mg/dL, Ca 9.8, Phos 4.8, Albumin 3.4 Labs scanned: 02/05/2024 Na 138, K 4.6, Chloride 101, CO2 27.4, BUN 108, Creatinine 2.53mg/dL, calcium 9.1, Phos 4.6. Albumin 3.3, glucose 319 Vitamin D 47.7 Called patient, she feels well, creatinine and BUN are better than prior. She reports no changes and states her appetite is good, no nausea or vomiting or bitter metallic taste in mouth. She states she did not tolerate sotaglifalozin and is back on her torsemide. Scheduled to see Tiera Spangler in 06/25/2024, update labs prior to visit. Marylu Headley DO March 08, 2024, 3:24 PM Please call the lab and get a fax of the rest of the lab work Of note her labs from 02/05/2024 Labs scanned: 02/05/2024 Na 138, K 4.6, Chloride 101, CO2 27.4, BUN 108, Creatinine 2.53mg/dL, calcium 9.1, Phos 4.6. Albumin 3.3, glucose 319 Vitamin D 47.7 Marylu Headley DO March 08, 2024, 2:45 PM Patient s identity has been confirmed by name and birthdate: Yes Call received from Erika from [facility] outpatient lab at 225 PM to report a critical value for BUN with a result of 90.0. Dr Headley was notified of the result at 0238PM. Liban M Yogesh, RN documented in this encounter [facility] 02-14-2024 Miscellaneous Notes Placed lab order form for renal function panel in the outgoing mail as of 02/14/2024. Tahir Phoenix MA Called patient, kidney function is stable. Her stick roller had wanted her to start sotagliflozin 200mg weekly in place of torsemide 20mg every other day. Reviewed with patient, we will need to monitor her kidney function with this switch. Plan to repeat labs in 2 weeks. Marylu Headley DO February 14, 2024, 2:18 PM documented in this encounter [facility] 02-13-2024 History of Presen t illness Narrative HPI: Ms. Chaudhry is a 78 year old female who presents for a follow-up of proteinuric CKD stage IV with history of DM and HTN. She has history of heart failure monitored by cardiology locally for heart failure is on kerendia and entresto. She reports she will be getting an echo on 03/24. She recently saw her stick roller, he wanted her to take sotagliflozin as [...] Platelet 243 Protein/cr ratio 1.21 ASSESSMENT/PLAN: Ms. Chaudhry is a 78 year old female who [...] lab work - reviewed labs and discussed TISSUE INSERTER with patient, she reports she would be interested in TISSUE INSERTER if needed, will get CKD education 2.) azotemia - no uremic signs or symptoms - Discussed avoiding nephrotoxins such as NSAIDs and IV iodinated contrast dye. 3) Hypertension: on the higher side, home bps look better - monitor for her, she is on multiple cardiac medications and reports her stick roller would like to get her off of [...] from tosremide to sotagliflozin as per her stick roller - monitor UA and UPCR 9) hyperkalemia - history of hyperkalemia - is on lokelma as K binder I spent a total of 40 minutes on the date of the service which included preparing to see the patient, [id number] patient care, completing clinical documentation, obtaining and/or reviewing separately obtained history, performing a medically appropriate examination, counseling and educating the patient/family/caregiver, and ordering medications, tests, or procedures. Follow up in 3 months, sooner prn. Marylu Headley DO documented in this encounter [facility] 02-13-2024 Note HNO ID: [id number] Author: MARYLU HEADLEY DO Service: ? Author Type: Physician Type: Progress Notes Filed: 02/13/2024 12:21 Note Text: HPI: Ms. Chaudhry is a 78 year old female who presents for a follow-up of proteinuric CKD stage IV with history of DM and HTN. She has history of heart failure monitored by cardiology locally for heart failure is on kerendia and entresto. She reports she will be getting an echo on 03/24. She recently saw her stick roller, he wanted her to take sotagliflozin as [...] 01/10/2023 PTH 65 01/10/2023 DIABETES Lab Results [place] (more content not included)... [facility] 02-06-2024 Miscellaneous Notes Noted. Marylu Headley DO February 06, 2024, 12:40 PM Patient calling back Read message below Voiced understanding She feels great Will wait until next week/ will get lab work while at [facility] Transferred to scheduling to make lab appointment [...] 2024, 10:31 AM documented in this encounter [facility] 02-06-2024 Miscellaneous Notes Received lab results from [facility]. Placed in provider mailbox for review. Viola Vidal MA documented in this encounter [facility] 12-26-2023 Note HNO ID: [id number] Author: TIERA SPANGLER APRN.SINTER PRESS OPERATOR Service: ? Author Type: Nurse Practitioner [...] labs DM-last A1C 8.9. She follows in [place], [place]. Continue endo follow up Plan No changes Labs prior to next follow up Has follow up in [address] Headley. Will keep appt and see me in 6 months Tiera Spangler APRN.SINTER PRESS OPERATOR [facility] 11-15-2023 Miscellaneous Notes Contacted patient to advise her of the message below from Tiera Spangler APRN SINTER PRESS OPERATOR. She agreed with plan as stated below and will mostly likely get it done today. Please remind patient she is due for nonfasting labs at [facility]. I sent order last week. EFE Mckeon documented in this encounter [facility] 11-06-2023 Miscellaneous Notes Took a call from Erika who works at [facility]. Erika was calling with some critical lab values for Tiera Spangler. Took the following message over phone: Critical BUN of 117. Patient in question was verified using full name and date of . Candace Veliz November 06, 2023 4:24 PM documented in this encounter [facility] 10-23-2023 Miscellaneous Notes I called the Medical Records department at [facility]. My call went to [employer]. I did not leave a message. I will try to call back @ [phone], Medical Records press 2, then 2. Akshat Schaeffer ----- Message from Tiera Spangler APRN.SINTER PRESS OPERATOR sent at 10/23/2023 8:57 AM EST ----- Please call [facility] and have repeat BUN and creatinine faxed over Tiera Spangler APRN.SINTER PRESS OPERATOR documented in this encounter [facility] 10-10-2023 Miscellaneous Notes Called pt to review labs Results not fully available to me from outside lab Would like to review BUN 124 Any med changes? How is BP? No answer, LMTCB Tiera Spangler APRN.SINTER PRESS OPERATOR Patient s identity has been confirmed by name and birthdate: Yes Call received from Lela at [facility] to report a critical value for BUN with a result of 124. Tiera Spangler APRN CNP was notified of the result at 2:46PM. Liban Zuñiga RN documented in this encounter [facility] 10-09-2023 Miscellaneous Notes The requested document has been faxed to [phone] . Received a fax confirmation of [place] on 10/09/23. Akshat Schaeffer Varsha Inigueztana is calling Tiera Spangler APRN.SINTER PRESS OPERATOR today needs labs ordered and faxed over to [facility]. F: [phone] No chief complaint on file. Patient has been identified by name and birthdate. Duration of symptoms: N/A Person calling: self Call patient at: at home [phone] (home) [phone] (cell) Was an appointment scheduled: No Closing statement: Results or non-symptom based questions: Thank you for calling [facility], your call will be returned within the next business day. Elva Beckford documented in this encounter [facility] 07-20-2023 Miscellaneous Notes That is fine Please send req for RFP in 1-2 weeks after starting increase Tiera Spangler APRN.CNP Varsha Chaudhry is calling Tiera Spangler APRN.CNP today stating that her PCP wants to increase her kerendia from 10mg to 20 mg. Needs an ok from Tiera. Please give a call back. No chief complaint on file. Patient has been identified by name and birthdate. Duration of symptoms: N/A Person calling: self Call patient at: at home [phone] (home) [phone] (cell) Was an appointment scheduled: No Closing statement: Results or non-symptom based questions: Thank you for calling [facility], your call will be returned within the next business day. Elva Beckford documented in this encounter [facility] 06-13-2023 History of Presen t illness [...] DM-uncontrolled on last lab. She follows in [place], [place]. Continue endo follow up Plan Have labs faxed over from [facility] F/U 4 months Tiera Spangler APRN.SINTER PRESS OPERATOR documented in this encounter [facility] 01-10-2023 Miscellaneous Notes Addended by: TIERA SPANGLER on: 01/10/2023 11:34 AM Modules accepted: Orders documented in this encounter [facility] 01-10-2023 History of Presen t illness Narrative Pt is a 77 yo female here for follow up of CKD stage 4 in the setting of proteinuria (non-nephrotic range), DM and HTN. Last OV 04/2022. Kayexalate powder restarted after that visit. Cardiology has changed it to gxlfvlz-mrootyo-ziu will run out. She has no new [...] home as well as here-she sees cardiology [id number] and her BPs are controlled there. Hyperkalemia-now [...] DM-uncontrolled on last lab. She follows in [place], [place]. Last A1C 8.5-continue endo follow up Heme-Hgb WNL Plan Labs Continue lokelma 10gm daily 30 day free coupon given to augment samples She will let me know if cardiology cannot sample-may need to go to specialty pharmacy F/U 4 months Tiera Spangler APRN.SINTER PRESS OPERATOR documented in this encounter [facility] 05-17-2022 Miscellaneous Notes Received a page from lab at [place] regarding critical lab results. Critical Glucose of 46. Sodium 142 K 4.6 Chloride 106 CO2 29.1 BUN 65.0 Creatinine 2.04mg/dL (creatinine was 1.99mg/dL on 05/03/2022 in [facility]) Calcium 8.8 Albumin 3.5 Phos 4.2 Asked [...] 2022, 1:16 PM documented in this encounter [facility] 05-04-2022 Miscellaneous Notes The requested document has been faxed to [phone]. Received a fax confirmation of [place] on [...] mail req She is agreeable Tiera Spangler APRN.SINTER PRESS OPERATOR documented in this encounter [facility] 05-03-2022 History of Presen t illness [...] (HCC) 1977 HTN (hypertension) Uterine cancer (HCC) 1972 hysterectomy General: Negative for weight loss, night [...] labs. HTN-well controlled at home-she sees cardiology [id number] and her BPs are controlled there. Racfrhilwhpt-jeyeykrspmwq-ws longer on treatment. Didn't tolerate veltassa and avoiding lokelma given CHF-update labs Vitamin D deficiency-on supplement 4000U D 3-update labs DM-uncontrolled on last lab. She follows in [place], [place]. Last A1C 8.9-continue endo follow up Plan Labs Cardiology has sent lab request for add ons Will have faxed to Dr Norton [phone] F/U 4 months Tiera Spangler APRN.SINTER PRESS OPERATOR documented in this encounter [facility] Evaluation + Plan note Future Appointments Appointment Date:07/17/2024 10:45:00 AM Scheduled Provider:Lasha Mackenzie DPM [facility] Appointment Type:WC Follow Up Visit (FT) [facility] Evaluation + Plan note Future Appointments Appointment Date:07/24/2024 09:15:00 AM Scheduled Provider:Lasha Mackenzie DPM [facility] Appointment Type:WC Follow Up Visit (FT) [facility] Evaluation + Plan note Future Appointments Appointment Date:07/31/2024 11:00:00 AM Scheduled Provider:Lasha Mackenzie DPM [facility] Appointment Type:WC Follow Up Visit (FT) [facility] Evaluation note Diagnosis Benign hypertension with chronic kidney disease, stage IV (HCC)- Primary Benign hypertensive kidney disease with chronic kidney disease stage I through stage IV, or unspecified CKD (chronic kidney disease) stage 4, GFR 15-29 ml/min (HCC) Chronic kidney disease, Stage IV (severe) Proteinuria, unspecified type Hyperkalemia Hyperpotassemia 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, unspecified whether mcfp insulin use (HCC) Vitamin D deficiency Unspecified vitamin D deficiency Chronic combined systolic and diastolic congestive heart failure (HCC) Chronic combined systolic and diastolic heart failure [facility] Diagnosis Benign hypertension with chronic kidney disease, stage IV (HCC)- Primary Benign hypertensive kidney disease with chronic kidney disease stage I through stage IV, or unspecified CKD (chronic kidney disease) stage 4, GFR 15-29 ml/min (HCC) Chronic kidney disease, Stage IV (severe) Proteinuria, unspecified type Hyperkalemia Hyperpotassemia 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, unspecified whether mcfp insulin use (HCC) Vitamin D deficiency Unspecified vitamin D deficiency [facility] Diagnosis Benign hypertension with chronic kidney disease, stage IV (HCC)- Primary Benign hypertensive kidney disease with chronic kidney disease stage I through stage IV, or unspecified CKD (chronic kidney disease) stage 4, GFR 15-29 ml/min (HCC) Chronic kidney disease, Stage IV (severe) Proteinuria, unspecified type Hyperkalemia Hyperpotassemia 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, unspecified whether mcfp insulin use (HCC) documented in this encounter [facility]* Diagnosis Benign hypertension with chronic kidney disease, stage IV (HCC)- Primary Benign hypertensive kidney disease with chronic kidney disease stage I through stage IV, or unspecified documented in this encounter [facility] note* Diagnosis CKD (chronic kidney disease) stage 4, GFR 15-29 ml/min (HCC)- Primary Chronic kidney disease, Stage IV (severe) Proteinuria, unspecified type 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, with long-term current use of insulin (HCC) Benign hypertension with chronic kidney disease, stage IV (HCC) Benign hypertensive kidney disease with chronic kidney disease stage I through stage IV, or unspecified Azotemia Other abnormal blood chemistry Hyperkalemia Hyperpotassemia documented in this encounter [facility] noteNo assessment information availableSelect [facility]: [facility] note* Diagnosis CKD (chronic kidney disease) stage 4, GFR 15-29 ml/min (HCC)- Primary Chronic kidney disease, Stage IV (severe) Proteinuria, unspecified type 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, with long-term current use of insulin (HCC) Benign hypertension with chronic kidney disease, stage IV (HCC) Benign hypertensive kidney disease with chronic kidney disease stage I through stage IV, or unspecified Hyperkalemia Hyperpotassemia Vitamin D deficiency Unspecified vitamin D deficiency documented in this encounter [facility] note* Diagnosis Hyperkalemia- Primary Hyperpotassemia documented in this encounter [facility]* Diagnosis CKD (chronic kidney disease) stage 4, GFR 15-29 ml/min ([facility])- Primary Chronic kidney disease, Stage IV (severe) [facility] Diagnosis Acquired deformity of right toe- Primary Foot ulcer, right, with fat layer exposed ([facility]) Type 2 diabetes mellitus with diabetic neuropathy, with long-term current use of insulin ([facility]) Pain due to onychomycosis of toenails of both feet Foot ulceration, right, with fat layer exposed ([facility]) [facility] Diagnosis Diabetic peripheral neuropathy associated with type 2 diabetes mellitus ([facility])- Primary 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, with long-term current use of insulin ([facility]) group home current use of insulin ([facility]) Hypoglycemia due to type 2 diabetes mellitus ([facility]) Type 2 diabetes mellitus without complication, with long-term current use of insulin ([facility]) Type 2 diabetes mellitus with peripheral neuropathy ([facility])- Primary 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, with long-term current use of insulin ([facility]) Class 2 severe obesity due to excess calories with serious comorbidity and body mass index (BMI) of 36.0 to 36.9 in adult ([facility])- Primary Type 2 diabetes mellitus with peripheral neuropathy ([facility]) 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, with long-term current use of insulin ([facility]) Type 2 diabetes mellitus with hypoglycemia without coma, with long-term current use of insulin ([facility]) Type 2 diabetes mellitus with peripheral neuropathy ([facility])- Primary 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, with long-term current use of insulin ([facility]) Type 2 diabetes mellitus with hypoglycemia without coma, with long-term current use of insulin ([facility]) Class 2 severe obesity due to excess calories with serious comorbidity and body mass index (BMI) of 37.0 to 37.9 in adult ([facility]) Type 2 diabetes mellitus with peripheral neuropathy ([facility])- Primary 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, with long-term current use of insulin ([facility]) Type 2 diabetes mellitus with hypoglycemia without coma, with long-term current use of insulin ([facility]) Class 2 severe obesity due to excess calories with serious comorbidity and body mass index (BMI) of 38.0 to 38.9 in adult ([facility]) Type 2 diabetes mellitus with hyperglycemia, with long-term current use of insulin ([facility]) Type 2 diabetes mellitus with diabetic neuropathy, with long-term current use of insulin ([facility])- Primary Foot ulcer, right, with fat layer exposed ([facility]) Acquired deformity of right toe [facility] Narr[facility] No data available for this section [facility] Discharge instructions Additional Instructions DISCHARGE INSTRUCTIONS Podiatry, Dr. Abdi -If you having excessive or persistent pain, swelling, bleeding, nausea, vomiting, or any other problems, you should first call your surgeon for advice. If you are unable to contact your surgeon, seek help from a hospital emergency room. -Follow carefully any verbal or written instructions your surgeon may have given you. SURGEON S WRITTEN INSTRUCTIONS -Keep bandage clean and dry and DO NOT REMOVE -Keep foot elevated -partial weight bearing to Post-operative foot -Take pain medications as directed -Do not be alarmed if you notice slight bleeding on the bandage, this is normal. -Report any increase in swelling to Dr. Abdi immediately -Resume regular diet Call the office if you develop: -Persistent bleeding -Temperature above 100 degrees Fahrenheit. -Persistent vomiting -Calf pain or shortness of breath -Redness or pus at operative site FOLLOW UP Phone numbers: Office [phone] [ ][facility] Work Phone: Hospital Discharge instructions No data available for this section [facility] Progress note No data available for this section [facility] Summary Purpose Family History No Family History Records Found Relationship Condition Age at Onset Recorded Date/T tani Not Specified Myocardial infarction Unknown father Myocardial infarction Unknown Advance Directives No Advanced Directives Records Found Advance Directive Response Recorded Date/ Time Advance Directives No May 01 4 3:18pm Chief Complaint and Reason for Visit Chief Complaint Right Foot Subcutane ous Ulcer, Type 2 Diabetes Additional Source Comments Source Comments (unrecognize d section and content) In the event this informatio n is protected by the Federal Confidentiality of Alcohol and Drug Abuse Patient Records regulations: The Federal rules restrict any use of the information to criminally investigate or prosecute any alcohol or drug abuse patient.[facility] the event this information is protected by the Federal Confidentiality of Alcohol and Drug Abuse Patient Records regulations: The Federal rules restrict any use of the information to criminally investigate or prosecute any alcohol or drug abuse patient.[facility] the event this information is protected by the Federal Confidentiality of Alcohol and Drug Abuse Patient Records regulations: The Federal rules restrict any use of the information to criminally investigate or prosecute any alcohol or drug abuse patient.[facility] the event this information is protected by the Federal Confidentiality of Alcohol and Drug Abuse Patient Records regulations: The Federal rules restrict any use of the information to criminally investigate or prosecute any alcohol or drug abuse patient.[facility] the event this information is protected by the Federal Confidentiality of Alcohol and Drug Abuse Patient Records regulations: The Federal rules restrict any use of the information to criminally investigate or prosecute any alcohol or drug abuse patient.[facility] the event this information is protected by the Federal Confidentiality of Alcohol and Drug Abuse Patient Records regulations: The Federal rules restrict any use of the information to criminally investigate or prosecute any alcohol or drug abuse patient.[facility] the event this information is protected by the Federal Confidentiality of Alcohol and Drug Abuse Patient Records regulations: The Federal rules restrict any use of the information to criminally investigate or prosecute any alcohol or drug abuse patient.[facility] the event this information is protected by the Federal Confidentiality of Alcohol and Drug Abuse Patient Records regulations: The Federal rules restrict any use of the information to criminally investigate or prosecute any alcohol or drug abuse patient.[facility] the event this information is protected by the Federal Confidentiality of Alcohol and Drug Abuse Patient Records regulations: The Federal rules restrict any use of the information to criminally investigate or prosecute any alcohol or drug abuse patient.[facility] the event this information is protected by the Federal Confidentiality of Alcohol and Drug Abuse Patient Records regulations: The Federal rules restrict any use of the information to criminally investigate or prosecute any alcohol or drug abuse patient.[facility] the event this information is protected by the Federal Confidentiality of Alcohol and Drug Abuse Patient Records regulations: The Federal rules restrict any use of the information to criminally investigate or prosecute any alcohol or drug abuse patient.[facility] the event this information is protected by the Federal Confidentiality of Alcohol and Drug Abuse Patient Records regulations: The Federal rules restrict any use of the information to criminally investigate or prosecute any alcohol or drug abuse patient.[facility]In the event this information is protected by the Federal Confidentiality of Alcohol and Drug Abuse Patient Records regulations: The Federal rules restrict any use of the information to criminally investigate or prosecute any alcohol or drug abuse patient.[facility] the event this information is protected by the Federal Confidentiality of Alcohol and Drug Abuse Patient Records regulations: The Federal rules restrict any use of the information to criminally investigate or prosecute any alcohol or drug abuse patient.[facility] the event this information is protected by the Federal Confidentiality of Alcohol and Drug Abuse Patient Records regulations: The Federal rules restrict any use of the information to criminally investigate or prosecute any alcohol or drug abuse patient.[facility] the event this information is protected by the Federal Confidentiality of Alcohol and Drug Abuse Patient Records regulations: The Federal rules restrict any use of the information to criminally investigate or prosecute any alcohol or drug abuse patient.[facility] the event this information is protected by the Federal Confidentiality of Alcohol and Drug Abuse Patient Records regulations: The Federal rules restrict any use of the information to criminally investigate or prosecute any alcohol or drug abuse patient.[facility] the event this information is protected by the Federal Confidentiality of Alcohol and Drug Abuse Patient Records regulations: The Federal rules restrict any use of the information to criminally investigate or prosecute any alcohol or drug abuse patient.[facility] the event this information is protected by the Federal Confidentiality of Alcohol and Drug Abuse Patient Records regulations: The Federal rules restrict any use of the information to criminally investigate or prosecute any alcohol or drug abuse patient.[facility] the event this information is protected by the Federal Confidentiality of Alcohol and Drug Abuse Patient Records regulations: The Federal rules restrict any use of the information to criminally investigate or prosecute any alcohol or drug abuse patient.[facility] the event this information is protected by the Federal Confidentiality of Alcohol and Drug Abuse Patient Records regulations: The Federal rules restrict any use of the information to criminally investigate or prosecute any alcohol or drug abuse patient.[facility] the event this information is protected by the Federal Confidentiality of Alcohol and Drug Abuse Patient Records regulations: The Federal rules restrict any use of the information to criminally investigate or prosecute any alcohol or drug abuse patient.[facility] Reason for Visit (unrecogniz ed section and content) Reason Comments Follow Up Benign hypertension with chronic kidney disease, stage IV - 4 month f/u Reason Comments Results Reason Comments Follow Up Ckd Reason Comments Medication Question Reason Comments Lab Orders Reason Comments Critical Results Reason Comments Patient Update Reason Comments Electronic Communication Reason Comments Follow Up Reason Comments Medication Assistance LOKELMA Reason Comments Follow Up CKD Reason Comments DM Foot Care Dm nail care Reason Comments Foot Ulcer Rt ft ulcer Care Teams (unrecognized sec tion and content) Health Services Director Relationship Specialty Start Date End Date Tiera Spangler, WATCH INSPECTOR FINAL MOVEMENT.SINTER PRESS OPERATOR [address] [place] [address] Primary Staff Physician Nephrology 12/23/21 Health Services Director Relationship Specialty Start Date End Date Tiera Spangler WATCH INSPECTOR FINAL MOVEMENT.SINTER PRESS OPERATOR [address] [facility] [place] [address] Primary Staff Physician Nephrology 12/23/21 Health Services Director Relationship Specialty Start Date End Date Tiera Spangler WATCH INSPECTOR FINAL MOVEMENT.SINTER PRESS OPERATOR [address] [place] [address] Primary Staff Physician Nephrology 12/23/21 Health Services Director Relationship Specialty Start Date End Date Tiera Spangler WATCH INSPECTOR FINAL MOVEMENT.SINTER PRESS OPERATOR [address] [place] [address] Primary Staff Physician Nephrology 12/23/21 Health Services Director Relationship Specialty Start Date End Date Tiera Spangler WATCH INSPECTOR FINAL MOVEMENT.SINTER PRESS OPERATOR [address] [place] [address] Primary Staff Physician Nephrology 12/23/21 Health Services Director Relationship Specialty Start Date End Date Tiera Spangler, WATCH INSPECTOR FINAL MOVEMENT.SINTER PRESS OPERATOR [address] [place] [address] Primary Staff Physician Nephrology 12/23/21 Health Services Director Relationship Specialty Start Date End Date Tiera Spangler WATCH INSPECTOR FINAL MOVEMENT.SINTER PRESS OPERATOR [address] [place] [address] Primary Staff Physician Nephrology 12/23/21 Health Services Director Relationship Specialty Start Date End Date Tiera Spangler WATCH INSPECTOR FINAL MOVEMENT.SINTER PRESS OPERATOR [address] [place] [address] Primary Staff Physician Nephrology 12/23/21 Health Services Director Relationship Specialty Start Date End Date Tiera Spangler, WATCH INSPECTOR FINAL MOVEMENT.SINTER PRESS OPERATOR [address] [place], [place] [id number] Primary Staff Physician Nephrology 12/23/21 Health Services Director Relationship Specialty Start Date End Date Tiera Spangler WATCH INSPECTOR FINAL MOVEMENT.SINTER PRESS OPERATOR [address] [place], [place] [id number] Primary Staff Physician Nephrology 12/23/21 Health Services Director Relationship Specialty Start Date End Date Tiera Spangler WATCH INSPECTOR FINAL MOVEMENT.SINTER PRESS OPERATOR [address] [place] [address] Primary Staff Physician Nephrology 12/23/21 Team Status: Active Member Role Status Dates Ken Norton JR DO Primary Care Provider Active Team Status: Inactive Member Role Status Dates Edgard Abdi DPM Attending Provider Active Start: May 03, 2024 End: May 03, 2024 Ken Norton JR DO Primary Care Provider Active Start: May 03, 2024 End: May 03, 2024 Health Services Director Relationship Specialty Start Date End Date Tiera Spangler, WATCH INSPECTOR FINAL MOVEMENT.SINTER PRESS OPERATOR [address] [place], [place] [id number] Primary Staff Physician Nephrology 12/23/21 Health Services Director Relationship Specialty Start Date End Date Tiera Spangler, WATCH INSPECTOR FINAL MOVEMENT.SINTER PRESS OPERATOR [address] [place], [place] [id number] Primary Staff Physician Nephrology 12/23/21 Health Services Director Relationship Specialty Start Date End Date Tiera Spangler WATCH INSPECTOR FINAL MOVEMENT.SINTER PRESS OPERATOR [address] [place], [place] [id number] Primary Staff Physician Nephrology 12/23/21 Health Services Director Relationship Specialty Start Date End Date Ken Norton MD [address] [facility] [place] [place] [address] PCP - General Internal Medicine 05/11/23 Fartun Skinner DO [address] [facility] [place] [address] Referring Physician Family Medicine 05/11/23 Health Services Director Relationship Specialty Start Date End Date Ken Norton MD [address] [facility] [place] [address] PCP - General Internal Medicine 05/11/23 Fartun Skinner DO [facility] [facility] [place] [address] Referring Physician Family Medicine 05/11/23 Health Services Director Relationship Specialty Start Date End Date Ken Norton MD [address] [facility] [place] [address] PCP - General Internal Medicine 05/11/23 Fartun Skinner DO [facility] [facility] [place] [address] Referring Physician Family Medicine 05/11/23 Health Services Director Relationship Specialty Start Date End Date Ken Norton MD [address] [facility] [place] [address] PCP - General Internal Medicine 05/11/23 Fartun Skinner DO [address] [facility] [place] [place] [address] Referring Physician Family Medicine 05/11/23 INFORMATION SOURCE (unrecogn ized section and content) DATE CREATED AUTHOR 05/05/2023 [facility] DATE CREATED AUTHOR AUTHOR'S ORGANIZ ATION 05/11/2024 [facility] DATE CREATED AUTHOR AUTHOR'S ORGANIZ ATION 07/25/2024 [facility] DATE CREATED AUTHOR AUTHOR'S ORGANIZ ATION 08/01/2024 [facility] DATE CREATED AUTHOR AUTHOR'S ORGANIZ ATION 08/18/2024 [facility] DATE CREATED AUTHOR AUTHOR'S ORGANIZ ATION 09/15/2024 [facility] EPIC FOR RECORDS PERTAINING [...] BE BASED ON THE PRIMARY CLINICAL RECORDS. [employer] provides no warranty or guarantee of the accuracy or completeness of information in this document.
== END 2024-09-20 13:23 | disposition home or self-care (01) ==
LOC: MAMMO 13:22
PROVIDERS: PCP Internal Medicine; Visit Provider Obstetrics & Gynecology
DX: Z12.31 Encounter for screening mammogram for malignant neoplasm of breast (principal)
CPT/HCPCS: 77063; 77067

== ENCOUNTER 2024-10-11 10:35 | Outpatient (OUT) | payer MEDICARE, SELFPAY ==
--- NOTE | 2024-10-11 10:45 | NM_ITS ---
The [address] [address] Patient Name: ANAY NIEVES MRN: [id number] date: 1945 Sex: F [facility] Location: Accession/Order Number: [id number] Exam Date: 10/11/2024 10:45 Report Date: 10/12/2024 07:13 At the request of: BOSTON ABDI Procedure: [facility] bone 3 phase EXAMINATION: [facility] bone 3 phase HISTORY: OSTEOMYELITIS RIGHT GREAT TOE COMPARISON: No relevant comparison available. TECHNIQUE: 25.3 mCi Technetium 99m MDP was injected intravenously followed by acquisition of dynamic flow, immediate blood pool, and delayed static images. FINDINGS: IMAGED AREA: Bilateral feet and ankles FLOW PHASE: Increased flow within the right foot BLOOD POOL PHASE: Increased radiotracer activity within medial aspect of right foot and involving the first toe. DELAYED IMAGES: Mild radiotracer activity within right first toe. Activity within mid foot bilaterally favors degenerative changes. OTHER: Negative. VA/VA bone 3 phase IMPRESSION: 1. Increased blood flow within the right foot and specifically involving the first toe but only mildly greater activity within the bones of the first toe. Findings favor cellulitis, but mild or resolving osteomyelitis cannot be completely excluded. Electronically authenticated by: MAHOGANY PINZON Date: 10/12/2024 07:13
--- OUTSIDE RECORDS SUMMARY | 2024-10-11 10:56 | XMS_ITS | CCD ---
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 Tiera L Unavailable [phone] CIERRA, DR PARSONS Primary Care Unavailable JOHAN [...] Admitting Unavailable NOLAN, JOHAN Attending Unavailable Crys FARM CROPS TEACHER.DORINATiera Kayy Unavailable [phone] Crys FARM CROPS TEACHER.DORINA Tiera Kayy Unavailable [phone] JEFF Abdi Attending Provider JR Ken Norton Primary Care Provider Ken Norton Primary Care Unavailable Edgard Abdi Attending Unavailable Brown, Edgard A Admitting Unavailable KEN NORTON JR Primary Care Physician [phone] CRSY, TIERA L Referring Unavailable CRYS, TIERA L Referring Unavailable Dolce, Lasha R Attending Unavailable Dolce, Lasha R Attending Unavailable Dolce, Lasha R Attending Unavailable Brown, Edgard A Referring Unavailable Dolce, Lasha R Attending Unavailable CRYS, TIERA L Attending Unavailable CRYS, TIERA L Attending Unavailable DEMARYLU RIVERA Attending Unavailable Ken Norton MD Primary Care Provider Petznick DO, Fartun Rochelle Unavailable [phone] BROWNREILLYEDGARD A Attending Unavailable SHAWN STOUT Attending Unavailable BROWN, EDGARD A Attending Unavailable BROWN, EDGARD A Attending Unavailable PETZNICK, FARTUN M Attending Unavailable VALONEKEN Referring Unavailable BROWN, EDGARD A Attending Unavailable BROWN, EDGARD A Attending Unavailable BROWN, EDGARD A Attending Unavailable BROWN, EDGARD A Attending Unavailable BROWN, EDGARD A Attending Unavailable BROWN, EDGARD A Attending Unavailable BROWN, EDGARD A Attending Unavailable BROWN, EDGARD A Attending Unavailable BROWN, EDGARD A Attending Unavailable PETZNICK, FARTUN M Attending Unavailable VALONEKEN Referring Unavailable BROWN, EDGARD A Attending Unavailable [...] DEINE] Drug Allergy 0 Other: See Comments [facility] (20 sources) benzonatate; Translations: [benzonatate] Drug Allergy 0 Vomiting [facility] (20 sources) Cephalexin; Translations: [cephalexin] Drug Allergy 0 Rash [facility] (20 sources) Ciprofloxacin; Translations: [CIPROFLOXACIN] Drug Allergy 9 Other: See Comments [facility] (20 sources) Clindamycin; Translations: [CLINDAMYCIN] Drug Allergy 9 Other: See Comments, Rash [facility] (11 sources) Penicillins; Translations: [penicillins] Drug Allergy 4 Other: See Comments [facility] (19 sources) Penicillins Drug Allergy 4 Other: See Comments [facility] (1 source) benzonatate Drug Allergy 0 [facility] (1 source) Cephalexin Drug Allergy 0 [facility] (1 source) Ciprofloxacin Drug Allergy [facility] (1 source) Clindamycin Drug Allergy [facility] (1 source) Penicillins Drug allergy (disorder) 4 [facility] (1 source) Tylenol-Codeine #3 Drug allergy (disorder) 0 [facility] (15 sources) Acetaminophen; Translations: [acetaminophen] Drug Allergy 3 [facility] (15 sources) Codeine; Translations: [codeine] Drug Allergy 3 [facility] (1 source) benzonatate Drug Allergy 4 [facility] (1 source) Cephalexin Drug Allergy 4 [facility] (1 source) Ciprofloxacin Drug Allergy 4 [facility] (1 source) Clindamycin Drug Allergy 4 [facility] (1 source) Penicillins Drug allergy (disorder) 4 [facility] (1 source) Cephalexin; Translations: [cephalexin monohydrate] Drug Allergy [facility] (1 source) Cephalexin; Translations: [Keflex] Drug Allergy [facility] (8 sources) benzonatate Drug Allergy 3 [facility] (8 sources) Penicillins Drug Allergy 3 [facility] Medications Current Medications Medication [...] 01/17/14 Status: Ordered BILBERRY, VACCINIUM MYRTILLUS, PO (8 sources) BILBERRY, VACCIN IUM MYRTILLUS, PO Bilberry [...] Comment on above: Take 1 capsule by [facility] once daily. Continuous Glucose Manager [employer] (FreeStyle Gualberto 3 Ronco) device (8 sources) Start: 05-20-20 Continuous Glucose Manager Employee Benefits (FreeStyle Gualberto 3 Ronco) device Indications: Type 2 diabetes mellitus with peripheral neuropathy (CMS/HCC) 1 Device See administration instructions 1 each 05/20/2024 Active Continuous Glucose Sensor (FreeStyle Gualberto 3 Sensor) misc (8 sources) Start: 05-20-20 Continuous Glucose Sensor (FreeStyle Gualberto 3 Sensor) [facility] Indications: Type 2 diabetes mellitus with peripheral [...] 2024 12:00am finerenone (Kerendia) 10 MG tablet (8 sources) take 2 tablets by mouth once daily finerenone (Kerendia) 10 MG tablet Take 20 mg by mouth 1 (one) time each day at the same time. Active 3 ml insulin glargine 100 unt/ml pen injector (9 sources) Insulin Analog Start: 08-19-20 insulin glargine [...] disease, with long-term current use of insulin ([facility]) 8 units shake, 10 units lunch, 16 [...] aily. rosuvastatin calcium 10 mg oral tablet (16 sources) HMG-CoA Reductase Inhibitor Start: 01-17-2014 End: [...] on above: Take 1 tablet by chloe twice daily. sodium zirconium cyclosilicate 5000 mg [...] on above: Take 1 Packet by chloe once daily. Mix powder in 45 mL [...] morning. Active take 1 capsule by mo [facility] once daily Vitamin E, dl, acetate, 1,000 unit capsule Take 1,000 Units by mouth once daily. Active Comment on above: Take 1,000 Units by mouth once daily. Completed/Discontinued Medications Medication Drug Class(es) Dates Sig (Normalized) Sig (Original) amLODIPine 5 mg oral tablet (1 source) Dihydropyridine Calcium Channel Rachael Start: 08-10-2021 End: 05-03-2022 amLODIPine (NORVASC) 5 mg tablet Pt akes three times a week -- 1 tablet 0 08/10/2021 05/03/2022 Discontinued Comment on above: Pt akes three times a week -- sodium polystyrene sulfonate 59741 mg powder for oral suspension (4 sources) [...] Documented Da te Episodic/Chronic Acquired foot deformities (13 sources) Acquired deformity of toe of right foot; Translations: [Acquired deformities of toe(s), unspecified, right foot] Onset: 04-02-2020 05-11-2023 Episodic Chronic kidney disease (9 sources) Chronic kidney disease, unspecified; Translations: [Chronic kidney disease, stage 4 (severe)] Onset: 11-12-2019 Chronic Chronic ulcer of skin (6 sources) Non-pressure chronic ulcer of other part [...] unspecified chronic kidney disease] Onset: 05-06-2019 Chronic Infective arthritis and osteomyelitis (except that caused by tuberculosis or sexually transmitted disease) (4 sources) Acute osteomyelitis of ankle and/or foot; Translations: [Other acute osteomyelitis, right ankle and foot] 09-26-2024 Chronic Inflammation; infection of eye (except that caused by tuberculosis or sexually transmitteddisease) (2 sources) Unspecified conjunctivitis; Translations: [Unspecified acute conjunctivitis, bilateral] Onset: 03-28-2023 Episodic Menopausal disorders (8 sources) Atrophic vaginitis; Translations: [Postmenopausal atrophic vaginitis] Onset: 09-19-2016 05-11-2023 Chronic Nausea and vomiting (1 source) Vomiting, unspecified; Translations: [VOMITING UNSPECIFIED] Onset: 03-28-2023 Episodic Nutritional deficiencies (4 sources) Vitamin D deficiency; Translations: [Vitamin D deficiency, unspecified] Onset: 02-13-2024 Chronic Osteoporosis (8 sources) Osteoporosis; Translations: [Age-related osteoporosis without current pathological fracture] Onset: 04-02-2020 05-11-2023 Chronic Other aftercare (1 source) 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; Translations: [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] Onset: 03-28-2023 Episodic Other aftercare (5 sources) Other halfway (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; Translations: [OTH SENIOR LIVING CURRENT DRUG THERAPY] Onset: 09-14-2022 Episodic Other nutritional; endocrine; and metabolic disorders (8 sources) Severe obesity; Translations: [Class 2 severe [...] Date Documented Date Episodic/Chronic Cancer of ovary (8 sources) History of malignant neoplasm of ovary; Translations: [Personal history of malignant neoplasm of ovary] Onset: 04-02-2020 05-11-2023 Episodic Fluid and electrolyte disorders (9 sources) Hyperkalemia; Translations: [Hyperkalemia] Onset: 09-18-2022 Episodic Genitourinary symptoms and ill-defined conditions (7 sources) Proteinuria; Translations: [Proteinuria, unspecified] Onset: 02-13-2024 Episodic Mycoses (9 sources) Onychomycosis due to dermatophyte ; Translations: [Tinea unguium] Onset: 04-02-2020 05-11-2023 Episodic Other aftercare (3 sources) penitentiary (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 of insulin; Translations: [SENIOR LIVING CURRENT USE OF INSULIN] Onset: 11-12-2019 Episodic Other aftercare (8 sources) Long-term current use of insulin; Translations: [penitentiary (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 of insulin] Onset: 12-18-2018 Resolved: 11-06-2023 11-06-2023 Episodic Other connective tissue disease (8 sources) Pain in limb; Translations: [Pain in unspecified limb] Onset: 04-02-2020 05-11-2023 Episodic Other diseases of veins and lymphatics (8 sources) Peripheral venous insufficiency; Translations: [Venous insufficiency (chronic) (peripheral)] Onset: 05-21-2020 05-11-2023 Episodic Other injuries and conditions due to external causes (8 sources) At risk for falls ; Translations: [History of falling] Onset: 04-02-2020 05-11-2023 Episodic Other lower respiratory disease (1 source) Shortness of breath; Translations: [SHORTNESS OF BREATH] Onset: 11-29-2022 Episodic Other lower respiratory disease (1 source) Dyspnea, unspecified; Translations: [DYSPNEA UNSPECIFIED] Onset: 09-18-2022 Episodic Other screening for suspected conditions (not mental disorders or infectious disease) (14 sources) Other specified abnormal findings of blood [...] 08-15-2024 Albumin [Mass/Vol] 4.1 g/dL Normal 3.9-4.9 [facility] Comment on above: Order Comment: Speci men Type: BLOOD SPECIMENOrdering Facility: [facility] Address: [address] [place] [address] Performed By: #### 2 4362-6 ####[facility] LABCLIA [id number] [place] [address] Anion gap [Moles/Vol] 13 mmol/L Normal 8-15 [facility] Comment on above: Order Comment: Speci men Type: BLOOD SPECIMENOrdering Facility: [facility] Address: [address] [place] [address] Performed By: #### 2 4362-6 ####[facility] LABCLIA [id number] [place] [address] Calcium [Mass/Vol] 9.6 mg/dL Normal 8.5-10.2 [facility] Comment on above: Order Comment: Speci men Type: BLOOD SPECIMENOrdering Facility: [facility] Address: [address] [place] [address] Performed By: #### 2 4362-6 ####[facility] LABCLIA [id number] [place] [address] Chloride [Moles/Vol] 103 mmol/L Normal 98-107 [facility] Comment on above: Order Comment: Speci men Type: BLOOD SPECIMENOrdering Facility: [facility] Address: [address] [place] [address] Performed By: #### 2 4362-6 ####[facility] LABCLIA [id number] [place] [address] CO2 [Moles/Vol] 23 mmol/L Normal 22-30 [facility] Comment on above: Order Comment: Speci men Type: BLOOD SPECIMENOrdering Facility: [facility] Address: [address] [place] [address] [place] [address] Performed By: #### 2 4362-6 ####[facility] LABCLIA [id number] [place] [address] Creatinine [Mass/Vol] 2.12 mg/dL High 0.58-0.96 [facility] Comment on above: Order Comment: Speci men Type: BLOOD SPECIMENOrdering Facility: [facility] Address: [address] [place] [address] Performed By: #### 2 4362-6 ####[facility] LABCLIA [id number] [place] [address] Creatinine and Glomerular filtration rate.predicted panel (S/P/Bld) 23 mL/min/1.73m??? Low >=60 [facility] Comment on above: Order Comment: Speci men Type: BLOOD SPECIMENOrdering Facility: [facility] Address: [address] [place] [address] Result Comment: Malini mated Glomerular Filtration Rate [...] actual GFR. Performed By: #### 2 4362-6 ####[facility] LABIA [id number] [place] [address] Glucose [Mass/Vol] 260 mg/dL High 74-99 [facility] Comment on above: Order Comment: Speci men Type: BLOOD SPECIMENOrdering Facility: [facility] Address: [address] [id number] Result Comment: The [place] Diabetes Association (ADA) provides guidance for cutoff [...] Standards of Medical Care in Diabetes 2016, [place] Diabetes Association. Diabetes Care. 2016.39(Suppl 1). Performed By: #### 2 4362-6 ####[facility] LABCLIA [id number] [place] [address] Phosphate [Mass/Vol] 4.3 mg/dL Normal 2.7-4.8 [facility] Comment on above: Order Comment: Speci men Type: BLOOD SPECIMENOrdering Facility: [facility] Address: [address] [place] [address] Performed By: #### 2 4362-6 ####[facility] LABCLIA [id number] [place] [address] Potassium [Moles/Vol] 5.0 mmol/L Normal 3.7-5.1 [facility] Comment on above: Order Comment: Speci men Type: BLOOD SPECIMENOrdering Facility: [facility] Address: [address] [place] [address] Performed By: #### 2 4362-6 ####[facility] LABCLIA [id number] [place] [address] Sodium [Moles/Vol] 139 mmol/L Normal 136-144 [facility] Comment on above: Order Comment: Speci men Type: BLOOD SPECIMENOrdering Facility: [facility] Address: [address] [place], [place] [address] Performed By: #### 2 4362-6 ####[facility] LABCLIA [id number] [place] [address] Urea nitrogen [Mass/Vol] 76 mg/dL High 7-21 [facility] Comment on above: Order Comment: Speci men Type: BLOOD SPECIMENOrdering Facility: [facility] Address: [address] [place], [place] [address] Performed By: #### 2 4362-6 ####[facility] LABCLIA [id number] [place] [address] Thalia 08-02-2024 DORINAN Telephone (MIDMAV) VARSHA CHAUDHRY ([id number]) 1945 F Date Time Provider Department 08/02/24 [...] the labs nonfasting in 1-2 weeks in [place], orders are in Tiera Spangler APRN.[employer] DRIVER Allergies As of Date: 08/02/2024 Noted Allergy [...] Encounter Status:Closed by KATT AVALOS on 08/02/24 [facility] Telephone (MIDMSV) VARSHA CHAUDHRY ([id number]) 1945 F Date Time Provider Department 08/02/24 TIERA SPANGLERNYU [facility] During your visit today, we recorded the following information about you: Tiera Spangler APRN.DORINA 08/02/2024 10:39 AM Signed Please call patient Her potassium is better on the increased lokelma of 15gm daily Scr is a bit above baseline at 2.3 Please have her repeat the labs nonfasting in 1-2 weeks in [place], orders are in Tiera Spangler APRN.[employer]SP[employer] DRIVER Allergies As of Date: 08/02/2024 Noted Allergy [...] [N18.4] Order(s):RENAL FUNCTION PANEL [SQRFP] Order #: [id number] FUTURE Prescriptions as of 08/02/2024 - sodium zirconium cyclosilicate (LOKELMA) 5 gram oral packet Take 3 Packets by mouth once daily. - torsemide (DEMADEX) 20 mg tablet Take 1 tablet by mouth every other day. - insulin lispro-aabc (LYUMJEV RUSLANIKPEN) 100 unit/mL insulin pen Inject subcutaneously three [...] Status:Closed by TIERA SPANGLER on 08/02/24 Normal [facility] Renal function 2000 panelon 08-01-2024 Albumin [Mass/Vol] 4.3 g/dL Normal 3.9-4.9 [facility] Comment on above: Order Comment: Speci men Type: BLOOD SPECIMENOrdering Facility: [facility] Address: [address] [place] [address] Performed By: #### 2 4362-6 ####[facility] LABCLIA [id number] [place] [address] Anion gap [Moles/Vol] 16 mmol/L High 8-15 [facility] Comment on above: Order Comment: Speci men Type: BLOOD SPECIMENOrdering Facility: [facility] Address: [address] [place] [address] Performed By: #### 2 4362-6 ####[facility] LABCLIA [id number] [place] [address] Calcium [Mass/Vol] 9.7 mg/dL Normal 8.5-10.2 [facility] Comment on above: Order Comment: Speci men Type: BLOOD SPECIMENOrdering Facility: [facility] Address: [address] [place] [address] Performed By: #### 2 4362-6 ####[facility] LABCLIA [id number] [place] [address] Chloride [Moles/Vol] 99 mmol/L Normal 98-107 [facility] Comment on above: Order Comment: Speci men Type: BLOOD SPECIMENOrdering Facility: [facility] Address: [address] [place] [address] Performed By: #### 2 4362-6 ####[facility] LABCLIA [id number] [place] [address] CO2 [Moles/Vol] 27 mmol/L Normal 22-30 [facility] Comment on above: Order Comment: Speci men Type: BLOOD SPECIMENOrdering Facility: [facility] Address: [address] [place] [address] Performed By: #### 2 4362-6 ####[facility] LABCLIA [id number] [place] [address] Creatinine [Mass/Vol] 2.30 mg/dL High 0.58-0.96 [facility] Comment on above: Order Comment: Speci men Type: BLOOD SPECIMENOrdering Facility: [facility] Address: [address] [place] [address] Performed By: #### 2 4362-6 ####[facility] LABCLIA [id number] [place] [address] Creatinine and Glomerular filtration rate.predicted panel (S/P/Bld) 21 mL/min/1.73m??? Low >=60 [facility] Comment on above: Order Comment: Speci men Type: BLOOD SPECIMENOrdering Facility: [facility] Address: [address] [place] [address] Result Comment: Malini mated Glomerular Filtration Rate [...] actual GFR. Performed By: #### 2 4362-6 ####[facility] LABCLIA [id number] [place] [address] Glucose [Mass/Vol] 242 mg/dL High 74-99 [facility] Comment on above: Order Comment: Speci men Type: BLOOD SPECIMENOrdering Facility: [facility] Address: [address] [place], [place] [id number] Result Comment: The [place] Diabetes Association (ADA) provides guidance for cutoff [...] Standards of Medical Care in Diabetes 2016, [place] Diabetes Association. Diabetes Care. 2016.39(Suppl 1). Performed By: #### 2 4362-6 ####[facility] LABCLIA [id number] [place] [address] Phosphate [Mass/Vol] 4.9 mg/dL High 2.7-4.8 [facility] Comment on above: Order Comment: Speci men Type: BLOOD SPECIMENOrdering Facility: [facility] Address: [address] [place] [address] Performed By: #### 2 4362-6 ####[facility] LABCLIA [id number] [place] [address] Potassium [Moles/Vol] 4.8 mmol/L Normal 3.7-5.1 [facility] Comment on above: Order Comment: Speci men Type: BLOOD SPECIMENOrdering Facility: [facility] Address: [address] [place] [address] Performed By: #### 2 4362-6 ####[facility] LABCLIA [id number] [place] [address] Sodium [Moles/Vol] 142 mmol/L Normal 136-144 [facility] Comment on above: Order Comment: Speci men Type: BLOOD SPECIMENOrdering Facility: [facility] Address: [address] [place] [address] Performed By: #### 2 4362-6 ####[facility] LABCLIA [id number] [place] [address] Urea nitrogen [Mass/Vol] 111 mg/dL High 7-21 [facility] Comment on above: Order Comment: Speci men Type: BLOOD SPECIMENOrdering Facility: [facility] Address: [address] [place], [place] [address] Performed By: #### 2 4362-6 ####[facility] LABCLIA [id number] [place] [address] Thalia 07-24-2024 OCTAVIO Telephone (MIDMSV) VARSHA CHAUDHRY ([id number]) 1945 F Date Time Provider Department 07/24/24 TIERA SPANGLER MIDMSV During your visit today, we recorded the following information about you: Tiera Spangler APRN.DORINA 07/24/2024 11:04 AM Signed Please call pt re: labs Kidney function is stable Potassium is a little high at 5.4 Continue [facility]. I am going to increase it to 15gm daily I will order a new shipment to be sent Labs in [place] 1 week after she starts increase, nonfasting Tiera Spangler APRN.Katt Brooke OCCA 07/24/2024 1:52 PM Signed Called and spoke to Pt in regards to below message. Pt understood and will do as suggested. Please call pt re: labs Kidney function is stable Potassium is a little high at 5.4 Continue lokelma. I am going to increase it to 15gm daily I will order a new shipment to be sent Labs in [place] 1 week after she starts increase, nonfasting Tiera Spangler APRN.[employer]IVER [employer] Allergies As of Date: 07/24/2024 [...] 3 RENAL FUNCTION PANEL [SQRFP] Order #: [id number] FUTURE Prescriptions as of 07/24/2024 - sodium [...] Status:Closed by TIERA SPANGLER on 07/24/24 Normal [facility] 25([place] 25-hydroxyvitamin D3 [Mass/Vol] 43.6 ng/mL Normal 31.0-80.0 [facility] Comment on above: Order Comment: Speci men Type: BLOOD SPECIMEN Ordering Facility: [facility] Address: [address] [place] [address] Result Comment: Clas sification of 25 [place] Vitamin D status: Deficiency/Insufficiency: < or = 30 ng/ml. Sufficiency/Optimal Levels: 31-80 ng/mL Toxicity: > 100 ng/mL. Test performed by chemiluminescent immunoassay. Performed By: #### 1 989-3 #### [facility] CLIA [id number] [address] [place] [address] [place] [address] [place] ALBUMIN/CREATININE RATIO, UR INEon 07-23-2024 Albumin DL <= 20 mg/L (U) [Mass/Vol] 184.1 mg/L [facility] Albumin/Creatinine (U) [Mass ratio] 1427 mg/g High NINF - 30 mg/g [facility] Comment on above: Adult Male and [...] 20 mg/L (U) [Mass/Vol] 184.1 mg/L Normal [facility] Comment on above: Order Comment: Speci men Type: URINE SPECIMEN Ordering Facility: [facility] Address: [address] [place] [address] Performed By: #### 3 5674-1, UACR, 2888-6 #### [facility] CLIA [id number] [address] [place] [address] STATES OF [facility] Albumin/Creatinine (U) [Mass ratio] 1427 mg/g High <30 [facility] Comment on above: Order Comment: Speci men Type: URINE SPECIMEN Ordering Facility: [facility] Address: [address] [place] [address] Result Comment: Adul t Male and Female Nephrotic Criteria: <30 mg/g is considered normal to mildly increased 30-300 mg/g is considered moderately increased >300 mg/g is considered severely increased KDIGO. (2013). KDIGO 2012 Clinical Practice Guideline for the Evaluation and Management of Chronic Kidney Disease. Official Journal of the International Society of Nephrology, 3(1), 1-150. Performed By: #### 3 5674-1, UACR, 2888-6 #### [facility] CLIA [id number] [address] [place] [address] [place] CBC panel Auto (Bld)on 07-23 Erythrocyte distribution width (RBC) [Ratio] 13.9 % 11.5 - 15.0 % [facility] Hematocrit (Bld) [Volume fraction] 37.8 % 36.0 - 46.0 % [facility] Hemoglobin (Bld) [Mass/Vol] 12.3 g/dL 11.5 - 15.5 g/dL [facility] Interpretation and review of laboratory results Normal [facility] MCH (RBC) [Entitic mass] 30.3 pg 26.0 - 34.0 pg [facility] MCHC (RBC) [Mass/Vol] 32.5 g/dL 30.5 - 36.0 g/dL [facility] MCV (RBC) [Entitic vol] 93.1 fL 80.0 - 100.0 fL [facility] Nucleated RBC (Bld) [#/Vol] NINF [facility] Platelet mean volume (Bld) [Entitic vol] 9.6 fL 9.0 - 12.7 fL [facility] Platelets (Bld) [#/Vol] 226 10*3/uL [facility] RBC (Bld) [#/Vol] 4.06 10*6/uL 3.90 - 5.2 0 m/uL [facility] WBC (Bld) [#/Vol] 10.51 10*3/uL [facility] Erythrocyte distribution width (RBC) [Ratio] 13.9 % Normal 11.5-15.0 [facility] Comment on above: Order Comment: Speci men Type: BLOOD SPECIMEN Ordering Facility: [facility] Address: [address] [place] [address] Performed By: #### 5 5454-3 #### [facility] CLIA [id number] [address] [place] [address] [place] Hematocrit (Bld) [Volume fraction] 37.8 % Normal 36.0-46.0 [facility] Comment on above: Order Comment: Speci men Type: BLOOD SPECIMEN Ordering Facility: [facility] Address: [address] [place] [address] Performed By: #### 5 5454-3 #### [facility] CLIA [id number] [address] [place] [address] [place] Hemoglobin (Bld) [Mass/Vol] 12.3 g/dL Normal 11.5-15.5 [facility] Comment on above: Order Comment: Speci men Type: BLOOD SPECIMEN Ordering Facility: [facility] Address: [address] [place] [address] Performed By: #### 5 5454-3 #### [facility] CLIA [id number] [address] [place] [address] [place] MCH (RBC) [Entitic mass] 30.3 pg Normal 26.0-34.0 [facility] Comment on above: Order Comment: Speci men Type: BLOOD SPECIMEN Ordering Facility: [facility] Address: [address] [place] [address] Performed By: #### 5 5454-3 #### [facility] CLIA [id number] [address] [place] [address] [place] MCHC (RBC) [Mass/Vol] 32.5 g/dL Normal 30.5-36.0 [facility] Comment on above: Order Comment: Speci men Type: BLOOD SPECIMEN Ordering Facility: [facility] Address: [address] [place] [address] Performed By: #### 5 5454-3 #### [facility] CLIA [id number] [address] [place] [address] [place] MCV (RBC) [Entitic vol] 93.1 fL Normal 80.0-100.0 [facility] Comment on above: Order Comment: Speci men Type: BLOOD SPECIMEN Ordering Facility: [facility] Address: [address] [place] [address] Performed By: #### 5 5454-3 #### [facility] CLIA [id number] [address] [place] [address] [place] Nucleated RBC (Bld) [#/Vol] 10*3/uL Normal <0.01 [facility] Comment on above: Order Comment: Speci men Type: BLOOD SPECIMEN Ordering Facility: [facility] Address: [address] [place] [address] Performed By: #### 5 5454-3 #### [facility] CLIA [id number] [address] [place] [address] [place] Platelet mean volume (Bld) [Entitic vol] 9.6 fL Normal 9.0-12.7 [facility] Comment on above: Order Comment: Speci men Type: BLOOD SPECIMEN Ordering Facility: [facility] Address: [address] [place] [address] Performed By: #### 5 5454-3 #### [facility] CLIA [id number] [address] [place] [address] [place] Platelets (Bld) [#/Vol] 226 10*3/uL Normal 150-400 [facility] Comment on above: Order Comment: Speci men Type: BLOOD SPECIMEN Ordering Facility: [facility] Address: [address] [place] [address] Performed By: #### 5 5454-3 #### [facility] CLIA [id number] [address] [place] [address] [place] RBC (Bld) [#/Vol] 4.06 10*6/uL Normal 3.90-5.20 [facility] Comment on above: Order Comment: Speci men Type: BLOOD SPECIMEN Ordering Facility: [facility] Address: [address] [place] [address] Performed By: #### 5 5454-3 #### [facility] CLIA [id number] [address] [place] [address] [place] WBC (Bld) [#/Vol] 10.51 10*3/uL Normal 3.70-11.00 [facility] Comment on above: Order Comment: Speci men Type: BLOOD SPECIMEN Ordering Facility: [facility] Address: [address] [place] [address] Performed By: #### 5 5454-3 #### [facility] CLIA [id number] [address] [place] [address] [place] CNOVon 07-23-2024 CNOV Office Visit (MIDMAV) VARSHA CHAUDHRY ([id number]) 1945 F Date Time Provider Department 07/23/24 11:30 AM [facility] During your visit today, we recorded the following information about you: Pulse Blood pressure Weight Height 75/minute 161/82 88.9 kg 1.575 m Tiera Spangler, FARM CROPS TEACHER.[employer] 07/23/2024 11:09 AM Signed Pt is an 79 yo female here for follow up CKD stage 4 in the setting of proteinuria, DM as well as HTN She was last seen 01/2024. Follows locally with PCP/cardiology for CHF-[facility]. Seen yesterday Baseline Scr 1.8-2.2. No complaints [...] 4000U D 3-follow labs DM-she follows in [place], [place]. Update A1C. Continue endo follow up Plan Update labs Follow up 4-6 months Tiera Spangler APRN.[employer] Allergies As of Date: 07/23/2024 Noted Allergy [...] kidney disease) stage 4, GFR 15-29 ml/min ([facility]) [N18.4] Other Visit Diagnoses:Proteinuri a, unspecified type [R80.9] 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, with long-term current use of insulin (HCC) [E11.22, N18.4, Z79.4] Benign hypertension with chronic kidney disease, stage IV (HCC) [I12.9, N18.4] Hyperkalemia [E87.5] Vitamin D deficiency [E55.9] Order(s):COMPLETE BLOOD COUNT [SQCBC] Order #: [id number] FUTURE FERRITIN [SQFERR] Order #: [id number] FUTURE IRON AND TIBC [SQIRON] Order #: [id number] FUTURE ALBUMIN/CREATININE RATIO, URINE [SQUACR] Order #: [id number] FUTURE RENAL FUNCTION PANEL [SQRFP] Order #: [id number] FUTURE PTH INTACT [SQPTHI] Order #: [id number] FUTURE VITAMIN D 25 HYDROXY [SQVITD] Order #: [id number] FUTURE CREATININE RANDOM URINE [SQUCRR] Order #: [id number] FUTURE PROTEIN RANDOM URINE [SQUTPR] Order #: [id number] FUTURE HEMOGLOBIN A1C [CWEBU1O] Order #: [id number] FUTURE RENAL FUNCTION PANEL [SQRFP] Order #: [id number] FUTURE Prescriptions as of 07/23/2024 - sodium zirconium cyclosilicate (LOKELMA) 10 gram oral packet Take 1 Packet by mouth once daily. Mix powder in 45 mL of water, stir and drink immediately. - torsemide (DEMADEX) 20 mg tablet Take 1 tablet by mouth every other day. - insulin lispro-aabc (LYUMJEV RUSLANIKPEN) 100 unit/mL insulin pen Inject subcutaneously three [...] U-100 INSULIN (more content not included)... Normal [facility] Creat ?Tm Ur-ncon 07-23-20 24 Creatinine (U) [Mass/Vol] 12.9 mg/dL Low 20.0-300.0 [facility] Comment on above: Order Comment: Speci men Type: URINE SPECIMEN Ordering Facility: [facility] Address: [address] [place] [address] Performed By: #### 3 5674-1, UACR, 2888-6 #### [facility] CLIA [id number] [address] [facility] [place] [id number] [place] FERRITINon 07-23-2024 Ferritin [Mass/Vol] 153.8 ng/mL 14.7 - 2 05.1 ng/mL [facility] Ferritin SerPl-mCncon 2023 Ferritin [Mass/Vol] 153.8 ng/mL Normal 14.7-205.1 [facility] Comment on above: Order Comment: Speci men Type: BLOOD SPECIMEN Ordering Facility: [facility] Address: [address] [place] [address] Performed By: #### 5 0190-8, 62425-5, 2276-4 #### [facility] CLIA [id number] [address] [place] [address] [place] Ferritin [Mass/Vol]on 2023 Interpretation and review of laboratory results Normal [facility] HbA1c (Bld)on 07-23-2024 Average glucose Estimated from glycated hemoglobin (Bld) [Mass/Vol] 194 mg/dL [facility] Comment on above: eAG: (Estimated aver age glucose) is a calculated value from HgbA1c and is outside industrial sales representative of the average blood glucose level in the last 2-3 month period. HbA1c (Bld) [Mass fraction] 8.4 % High 4.3 - 5.6 % [facility] Comment on above: [place] Diabetes As sociation guidelines indicate that patients with HgbA1c in the range 5.7-6.4% are at increased risk for development of diabetes, and intervention by lifestyle modification may be beneficial. HgbA1c greater or equal to 6.5% is considered diagnostic of diabetes. Interpretation and review of laboratory results Abnormal [facility] Average glucose Estimated from glycated hemoglobin (Bld) [Mass/Vol] 194 mg/dL Normal [facility] Comment on above: Order Comment: Speci men Type: BLOOD SPECIMEN Ordering Facility: [facility] Address: [address] [place] [address] Result Comment: eAG: (Estimated average glucose) is a calculated value from HgbA1c and is outside industrial sales representative of the average blood glucose level in the last 2-3 month period. Performed By: #### 5 5454-3 #### [facility] CLIA [id number] [address] [place] [address] [place] HbA1c (Bld) [Mass fraction] 8.4 % High 4.3-5.6 [facility] Comment on above: Order Comment: Nestori men Type: BLOOD SPECIMEN Ordering Facility: [facility] Address: [address] [place] [address] Result Comment: [place] Diabetes Association guidelines indicate that patients with HgbA1c in the range 5.7-6.4% are at increased risk for development of diabetes, and intervention by lifestyle modification may be beneficial. HgbA1c greater or equal to 6.5% is considered diagnostic of diabetes. Performed By: #### 5 5454-3 #### [facility] CLIA [id number] [address] [place] [address] [place] Iron and Iron binding capaci [facility] 07-23-2024 Interpretation and review of laboratory results Normal [facility] Iron [Mass/Vol] 75 ug/dL 41 - 186 ug/dL [facility] Iron binding capacity [Mass/Vol] 303 ug/dL 232 - 386 ug/dL [facility] Iron/TIBC [Molar ratio] 24.8 % 15.0 - 57.0 % [facility] Iron [Mass/Vol] 75 ug/dL Normal 41-186 [facility] Comment on above: Order Comment: Speci men Type: BLOOD SPECIMEN Ordering Facility: [facility] Address: [address] [place] [address] Performed By: #### 5 0190-8, 65853-0, 2276-4 #### [facility] CLIA [id number] [address] [place] [address] [place] Iron binding capacity [Mass/Vol] 303 ug/dL Normal 232-386 [facility] Comment on above: Order Comment: Speci men Type: BLOOD SPECIMEN Ordering Facility: [facility] Address: [address] [place] [address] Performed By: #### 5 0190-8, 02484-0, 2276-4 #### [facility] CLIA [id number] [address] [place] [address] [place] Iron/TIBC [Molar ratio] 24.8 % Normal 15.0-57.0 [facility] Comment on above: Order Comment: Speci men Type: BLOOD SPECIMEN Ordering Facility: [facility] Address: [address] [place] [address] Performed By: #### 5 0190-8, 86068-2, 2276-4 #### [facility] CLIA [id number] [address] [place] [address] [place] Laboratory - Chemistry and C hemistry - challengeon 07-23-2024 Creatinine (U) [Mass/Vol] 12.9 mg/dL Low 20.0 - 300.0 mg/dL [facility] No Panel Informationon 07-23 Interpretation and review of laboratory results Abnormal [facility] PROTEIN RANDOM URINEon 07-23 Protein (U) [Mass/Vol] 31 mg/dL High 0 - 20 mg/dL [facility] PTH-Intact SerPl-ncon - Parathyrin.intact [Mass/Vol] 62 pg/mL Normal 15-65 [facility] Comment on above: Order Comment: Speci men Type: BLOOD SPECIMEN Ordering Facility: [facility] Address: [address] [place] [address] Performed By: #### 2 731-8 #### [facility] CLIA [id number] [address] [place], [place] [address] [place] [address] [place] Prot Ur-mCncon 07-23-2024 Protein (U) [Mass/Vol] 31 mg/dL High 0-20 [facility] Comment on above: Order Comment: Speci men Type: URINE SPECIMEN Ordering Facility: [facility] Address: [address] [place] [address] Performed By: #### 3 5674-1, UACR, 2888-6 #### [facility] CLIA [id number] [address] [place], [place] [address] [place] Renal function 2000 panelon 07-23-2024 Albumin [Mass/Vol] 4.1 g/dL 3.9 - 4.9 g/dL [facility] Anion gap [Moles/Vol] 14 mmol/L 8 - 15 mmol/L [facility] Calcium [Mass/Vol] 10.0 mg/dL 8.5 - 10. 2 mg/dL [facility] Chloride [Moles/Vol] 103 mmol/L 98 - 10 7 mmol/L [facility] CO2 [Moles/Vol] 25 mmol/L 22 - 30 mmol/L [facility] Creatinine [Mass/Vol] 1.88 mg/dL High 0.58 - 0.96 mg/dL [facility] GFR/1.73 sq M.predicted among non-blacks MDRD (S/P/Bld) [Vol rate/Area] 27 mL/min/{1.73_m2} Low - PINF [facility] Comment on above: Estimated Glomerular Filtration [...] 184 mg/dL High 74 - 99 mg/dL [facility] Comment on above: The [place] Diabete s Association (ADA) provides guidance for [...] Standards of Medical Care in Diabetes 2016, [place] Diabetes Association. Diabetes Care. 2016.39(Suppl 1). Interpretation and review of laboratory results Abnormal [facility] Phosphate [Mass/Vol] 4.2 mg/dL 2.7 - 4 .8 mg/dL [facility] Potassium [Moles/Vol] 5.4 mmol/L High 3.7 - 5.1 mmol/L [facility] Sodium [Moles/Vol] 142 mmol/L 136 - 144 mmol/L [facility] Urea nitrogen [Mass/Vol] 82 mg/dL High 7 - 21 mg/dL [facility] Albumin [Mass/Vol] 4.1 g/dL Normal 3.9-4.9 [facility] Comment on above: Order Comment: Speci men Type: BLOOD SPECIMEN Ordering Facility: [facility] Address: [address] [place] [address] Performed By: #### 5 0190-8, 27497-6, 2275-4 #### [facility] CLIA [id number] [address] [place] [address] [place] Anion gap [Moles/Vol] 14 mmol/L Normal 8-15 [facility] Comment on above: Order Comment: Speci men Type: BLOOD SPECIMEN Ordering Facility: [facility] Address: [address] [place] [address] Performed By: #### 5 0190-8, 58908-4, 2275-4 #### [facility] CLIA [id number] [address] [place] [address] [place] Calcium [Mass/Vol] 10.0 mg/dL Normal 8.5-10.2 [facility] Comment on above: Order Comment: Speci men Type: BLOOD SPECIMEN Ordering Facility: [facility] Address: [address] [place] [address] Performed By: #### 5 0190-8, 98426-7, 2275-4 #### [facility] CLIA [id number] [address] [place] [address] [place] Chloride [Moles/Vol] 103 mmol/L Normal 98-107 [facility] Comment on above: Order Comment: Speci men Type: BLOOD SPECIMEN Ordering Facility: [facility] Address: [address] [place] [address] Performed By: #### 5 0190-8, 22790-1, 6-4 #### [facility] CLIA [id number] [address] [place] [address] [place] CO2 [Moles/Vol] 25 mmol/L Normal 22-30 [facility] Comment on above: Order Comment: Speci men Type: BLOOD SPECIMEN Ordering Facility: [facility] Address: [address] [place] [address] Performed By: #### 5 0190-8, 60631-5, 2275-4 #### [facility] CLIA [id number] [address] [place], [place] [address] [place] [address] [place] Creatinine [Mass/Vol] 1.88 mg/dL High 0.58-0.96 [facility] Comment on above: Order Comment: Speci men Type: BLOOD SPECIMEN Ordering Facility: [facility] Address: [address] [place] [address] Performed By: #### 5 0190-8, 99889-6, 2275-4 #### [facility] CLIA [id number] [place] [id number] [place] [address] OF [facility] Creatinine and Glomerular filtration rate.predicted panel (S/P/Bld) 27 mL/min/1.73m??? Low >=60 [facility] Comment on above: Order Comment: Speci men Type: BLOOD SPECIMEN Ordering Facility: [facility] Address: [address] [place] [address] Result Comment: Malini mated Glomerular Filtration Rate [...] actual GFR. Performed By: #### 5 0190-8, 29348-5, 2275-4 #### [facility] CLIA [id number] [address] [place] [address] [place] Glucose [Mass/Vol] 184 mg/dL High 74-99 [facility] Comment on above: Order Comment: Earline porras Type: BLOOD SPECIMEN Ordering Facility: [facility] Address: [address] [place] [address] Result Comment: The [place] Diabetes Association (ADA) provides guidance for cutoff [...] Standards of Medical Care in Diabetes 2016, [place] Diabetes Association. Diabetes Care. 2016.39(Suppl 1). Performed By: #### 5 0190-8, 23533-1, 2275-4 #### [facility] CLIA [id number] [address] [place] [address] [place] Phosphate [Mass/Vol] 4.2 mg/dL Normal 2.7-4.8 [facility] Comment on above: Order Comment: Earline porras Type: BLOOD SPECIMEN Ordering Facility: [facility] Address: [address] [place] [address] Performed By: #### 5 0190-8, 42777-5, 2275-4 #### [facility] IA [id number] [address] [place] [address] [place] Potassium [Moles/Vol] 5.4 mmol/L High 3.7-5.1 [facility] Comment on above: Order Comment: Earline porras Type: BLOOD SPECIMEN Ordering Facility: [facility] Address: [address] [place] [address] Performed By: #### 5 0190-8, 01637-2, 2275-4 #### [facility] CLIA [id number] [address] [place] [address] [place] [facility] Sodium [Moles/Vol] 142 mmol/L Normal 136-144 [facility] Comment on above: Order Comment: Earline porras Type: BLOOD SPECIMEN Ordering Facility: [facility] Address: [address] [place], [place] [address] Performed By: #### 5 0190-8, 65481-9, 2276-4 #### [facility] CLIA [id number] [address] [place] [address] [place] [facility] Urea nitrogen [Mass/Vol] 82 mg/dL High 7-21 [facility] Comment on above: Order Comment: Earline porras Type: BLOOD SPECIMEN Ordering Facility: [facility] Address: [address] [place], [place] [address] Performed By: #### 5 0190-8, 55310-2, 2276-4 #### [facility] CLIA [id number] [address] [place] [id number] [facility] CNPTrudi 06-18-2024 CNPN Telephone (MIDJustFoodForDogsV) VARSHA CHAUDHRY ([id number]) 1945 F Date Time Provider Department 06/18/24 TIERA SPANGLER During your visit today, we recorded the following information about you: Lupillo Lela 06/18/2024 3:20 PM Signed Varsha is calling Tiera Spangler RD today with concern regarding Medication Assistance (LOKELMA). Pt states provider told her she would help try to get her a lower cost on LOKELMA. Please advise. Patient has been identified by name and birthdate. Duration of symptoms: N/A Person calling: self Call patient at: at home [phone] (home) [phone] (cell) Was an appointment scheduled: No Closing statement: Results or non-symptom based questions: Thank you for calling [facility], your call will be returned within the next business day. Tiera Bruno APRN.DORINA 06/18/2024 3:53 PM Signed Returned call to [...] declined and stated she would be in [facility] on 06/20/24. AZANDME nicole, Lokelma cards, and Lokelma prescription have been placed in an envelope in prescription box behind AVW2-2 behind check-out. Patient is to fill out page one of application and leave for Tiera. Please place completed application in Tiera's mailbox once completed by patient. *Patient plans to hot die picker packet 06/20/24 in the AM* CRISTELA [...] Fully Assessed Reason for Visit: Medication Assistance [3544] Cmt: CARMELITAMA Order(s):sodium zirconium cyclosilicate (LOKELMA) 10 gram oral [...] mouth once (more content not included)... Normal [facility] Capillary blood glucose arlyn urement by glucometer (mass/volume)Ordered By: Edgard Abdi on 05-03-2024 Glucose [Mass/Vol] 183 mg/dL Normal [facility] Comment on above: Random Glucose Refer ence Range is dependent on time and content of last meal. Glucose of more than 200 mg/dL in a nonstressed, ambulatory subject supports the diagnosis of Diabetes Mellitus. Result Comment: [place] Glucose Reference Range is dependent on time and content of last meal. Glucose of more than 200 mg/dL in a nonstressed, ambulatory subject supports the diagnosis of Diabetes Mellitus. Performed By: #### G LULS #### Point of Care testing , Glucose Poct Glucometerson 0 05-03-2024 Commemt1 Glu2: Cleaned Meter Normal [facility] Comment on above: Result Comment: PERF ORMED BY: [facility] [address] [place] [address] PATHOLOGIST RAW STOCK MACHINE FEEDER LV BEGUM M.D. Performed By: #### G LULS #### Point of Care testing , No Panel InformationOrdered By: Edgard Abdi on 05-03-2024 Bedside Glucose Comment Glu2: cleaned meter [facility]udi [facility] VARSHA CHAUDHRY ([id number]) 1945 F Date Time Provider Department 03/08/24 MARYLU HEADLEY During your visit today, we recorded the following information about you: Liban Zuñiga RN 03/08/2024 2:39 PM Signed Patient?s identity has been confirmed by name and birthdate: Yes Call received from Erika from [facility] outpatient lab at 225 PM to [...] Encounter Status:Closed by MARYLU HEADLEY on 03/08/24 Normal [facility] Thalia 02-14-2024 CNPN Telephone (MIDMAV) RICHAVARSHA ([id number]) 1945 F Date Time Provider Department 02/14/24 MARYLU HEADLEY MIDMAV During your visit today, we recorded the following information about you: Marylu Headley DO 02/14/2024 2:19 PM Signed Called patient, kidney function is stable. Her digital marketing executive had wanted her to start sotagliflozin 200mg [...] Status:Closed by MARYLU HEADLEY on 02/14/24 Normal [facility] 25(OH)D3 [facility] 2023 25-hydroxyvitamin D3 [Mass/Vol] 55.6 ng/mL Normal 31.0-80.0 [facility] Comment on above: Order Comment: Speci men Type: BLOOD SPECIMEN Ordering Facility: [facility] Address: [address] [place] [address] Result Comment: Clas sification of 25 [place] Vitamin D status: Deficiency/Insufficiency: < or = 30 ng/ml. Sufficiency/Optimal Levels: 31-80 ng/mL Toxicity: > 100 ng/mL. Test performed by chemiluminescent immunoassay. Performed By: #### 5 5454-3 #### [facility] CLIA [id number] [address] [place] [address] [place] CBC panel Auto (Bld)on 02-12 Erythrocyte distribution width (RBC) [Ratio] 13.1 % Normal 11.5-15.0 [facility] Comment on above: Order Comment: Speci men Type: BLOOD SPECIMEN Ordering Facility: [facility] Address: [address] [place] [address] Performed By: #### 5 5454-3 #### [facility] CLIA [id number] [address] [place] [address] [place] Hematocrit (Bld) [Volume fraction] 40.6 % Normal 36.0-46.0 [facility] Comment on above: Order Comment: Speci men Type: BLOOD SPECIMEN Ordering Facility: [facility] Address: [address] [place] [address] Performed By: #### 5 5454-3 #### [facility] CLIA [id number] [address] [place] [address] [place] Hemoglobin (Bld) [Mass/Vol] 12.9 g/dL Normal 11.5-15.5 [facility] Comment on above: Order Comment: Speci men Type: BLOOD SPECIMEN Ordering Facility: [facility] Address: [address] [place] [address] Performed By: #### 5 5454-3 #### [facility] CLIA [id number] [address] [place] [address] [place] MCH (RBC) [Entitic mass] 29.7 pg Normal 26.0-34.0 [facility] Comment on above: Order Comment: Speci men Type: BLOOD SPECIMEN Ordering Facility: [facility] Address: [address] [place] [address] Performed By: #### 5 5454-3 #### [facility] CLIA [id number] [address] [place] [address] [place] MCHC (RBC) [Mass/Vol] 31.8 g/dL Normal 30.5-36.0 [facility] Comment on above: Order Comment: Speci men Type: BLOOD SPECIMEN Ordering Facility: [facility] Address: [address] [place] [address] Performed By: #### 5 5454-3 #### [facility] CLIA [id number] [address] [place] [address] [place] MCV (RBC) [Entitic vol] 93.5 fL Normal 80.0-100.0 [facility] Comment on above: Order Comment: Speci men Type: BLOOD SPECIMEN Ordering Facility: [facility] Address: [address] [place] [address] Performed By: #### 5 5454-3 #### [facility] CLIA [id number] [address] [place] [address] [place] Nucleated RBC (Bld) [#/Vol] 10*3/uL Normal <0.01 [facility] Comment on above: Order Comment: Speci men Type: BLOOD SPECIMEN Ordering Facility: [facility] Address: [address] [place] [address] Performed By: #### 5 5454-3 #### [facility] CLIA [id number] [address] [place] [address] [place] Platelet mean volume (Bld) [Entitic vol] 10.3 fL Normal 9.0-12.7 [facility] Comment on above: Order Comment: Speci men Type: BLOOD SPECIMEN Ordering Facility: [facility] Address: [address] [place] [address] Performed By: #### 5 5454-3 #### [facility] CLIA [id number] [address] [place] [address] [place] Platelets (Bld) [#/Vol] 247 10*3/uL Normal 150-400 [facility] Comment on above: Order Comment: Speci men Type: BLOOD SPECIMEN Ordering Facility: [facility] Address: [address] [place] [address] Performed By: #### 5 5454-3 #### [facility] CLIA [id number] [address] [place] [address] [place] RBC (Bld) [#/Vol] 4.34 10*6/uL Normal 3.90-5.20 [facility] Comment on above: Order Comment: Speci men Type: BLOOD SPECIMEN Ordering Facility: [facility] Address: [address] [place] [address] Performed By: #### 5 5454-3 #### [facility] CLIA [id number] [address] [place] [address] [place] WBC (Bld) [#/Vol] 10.17 10*3/uL Normal 3.70-11.00 [facility] Comment on above: Order Comment: Speci men Type: BLOOD SPECIMEN Ordering Facility: [facility] Address: [address] [place] [address] Performed By: #### 5 5454-3 #### [facility] CLIA [id number] [address] [place] [address] OF [facility] CNOVon 02-13-2024 CNOV Office Visit (MIDMAV) VARSHA CHAUDHRY ([id number]) 1945 F Date Time Provider Department 02/13/24 10:40 AM MARYLU HEADLEYMSAngela During your visit today, we recorded the [...] echo on 03/24. She recently saw her digital marketing executive, he wanted her to take sotagliflozin as [...] mouth every other day. insulin lispro-aabc (LYUMJEAngela SHAHID) 100 unit/mL insulin [...] Lab Results (more content not included)... Normal [facility] Creatinine Unsp time (U) [Ma ss/Vol]on 02-13-2024 Creatinine (U) [Mass/Vol] 52.0 mg/dL Normal 20.0-300.0 [facility] Comment on above: Order Comment: Speci men Type: BLOOD SPECIMEN Ordering Facility: [facility] Address: [address] [place] [address] Performed By: #### 5 5454-3 #### [facility] CLIA [id number] [address] [place] [address] [place] PROTEIN CREATININE RATIOon 0 02-13-2024 Protein/Creatinine (U) [Mass ratio] 1.19 mg/mg High <0.15 mg/mg [facility] Prot Ur-mCncon 02-13-2024 Protein (U) [Mass/Vol] 62 mg/dL High 0-20 [facility] Comment on above: Order Comment: Earline men Type: BLOOD SPECIMEN Ordering Facility: [facility] Address: [address] [place] [address] Performed By: #### 5 5454-3 #### [facility] CLIA [id number] [address] [place] [address] [place] Prot/Creat Uron 02-13-2024 Protein/Creatinine (U) [Mass ratio] 1.19 mg/mg High <0.15 [facility] Comment on above: Order Comment: Speci men Type: BLOOD SPECIMEN Ordering Facility: [facility] Address: [address] [place] [address] Result Comment: Adul t Proteinuria Categories: <0.15 mg/mg is considered normal to mildly increased 0.15 - 0.50 mg/mg is considered moderately increased >0.50 mg/mg is considered severely increased KDIGO. (2013). KDIGO 2012 Clinical Practice Guideline for the Evaluation and Management of Chronic Kidney Disease. Official Journal of the International Society of Nephrology, 3(1), 1-150. Performed By: #### 5 5454-3 #### [facility] CLIA [id number] [address] [place] [address] [place] Protein/Creatinine (U) [Mass ratio]on 02-13-2024 Creatinine (U) [Mass/Vol] 52.0 mg/dL 20.0 - 300.0 mg/dL [facility] Protein (U) [Mass/Vol] 62 mg/dL High 0 - 20 mg/dL [facility] Creatinine (U) [Mass/Vol] 52.0 mg/dL Normal 20.0-300.0 [facility] Comment on above: Order Comment: Earline porras Type: BLOOD SPECIMEN Ordering Facility: [facility] Address: [address] [place] [address] Performed By: #### 5 5454-3 #### [facility] CLIA [id number] [address] [place] [address] [place] Renal function 2000 panelon 02-13-2024 Albumin [Mass/Vol] 4.0 g/dL Normal 3.9-4.9 [facility] Comment on above: Order Comment: Nestori men Type: BLOOD SPECIMEN Ordering Facility: [facility] Address: [address] [place] [address] Performed By: #### 5 5454-3 #### [facility] CLIA [id number] [address] [id number] [address] [place] Anion gap [Moles/Vol] 12 mmol/L Normal 9-18 [facility] Comment on above: Order Comment: Speci men Type: BLOOD SPECIMEN Ordering Facility: [facility] Address: [address] [place] [address] Performed By: #### 5 5454-3 #### [facility] CLIA [id number] [address] [place] [address] [place] Calcium [Mass/Vol] 9.5 mg/dL Normal 8.5-10.2 [facility] Comment on above: Order Comment: Speci men Type: BLOOD SPECIMEN Ordering Facility: [facility] Address: [address] [place] [address] Performed By: #### 5 5454-3 #### [facility] CLIA [id number] [address] [place] [address] [place] Chloride [Moles/Vol] 103 mmol/L Normal 97-105 [facility] Comment on above: Order Comment: Speci men Type: BLOOD SPECIMEN Ordering Facility: [facility] Address: [address] [place] [address] Performed By: #### 5 5454-3 #### [facility] CLIA [id number] [address] [place] [address] [place] CO2 [Moles/Vol] 28 mmol/L Normal 22-30 [facility] Comment on above: Order Comment: Speci men Type: BLOOD SPECIMEN Ordering Facility: [facility] Address: [address] [place] [address] Performed By: #### 5 5454-3 #### [facility] CLIA [id number] [address] [place] [address] [place] Creatinine [Mass/Vol] 2.02 mg/dL High 0.58-0.96 [facility] Comment on above: Order Comment: Speci men Type: BLOOD SPECIMEN Ordering Facility: [facility] Address: [address] [place] [address] Performed By: #### 5 5454-3 #### [facility] CLIA [id number] [address] [place] [address] [place] Creatinine and Glomerular filtration rate.predicted panel (S/P/Bld) 25 mL/min/1.73m??? Low >=60 [facility] Comment on above: Order Comment: Earline porras Type: BLOOD SPECIMEN Ordering Facility: [facility] Address: [address] [place] [address] Result Comment: Malini mated Glomerular Filtration Rate [...] GFR. Performed By: #### 5 5454-3 #### [facility] CLIA [id number] [address] [place] [address] [place] Glucose [Mass/Vol] 92 mg/dL Normal 74-99 [facility] Comment on above: Order Comment: Earline porras Type: BLOOD SPECIMEN Ordering Facility: [facility] Address: [address] [place] [address] Result Comment: The [place] Diabetes Association (ADA) provides guidance for cutoff [...] Standards of Medical Care in Diabetes 2016, [place] [employer] Association. Diabetes Care. 2016.39(Suppl 1). Performed By: #### 5 5454-3 #### [facility] CLIA [id number] [address] [place] [address] [place] Phosphate [Mass/Vol] 4.2 mg/dL Normal 2.7-4.8 [facility] Comment on above: Order Comment: Speci men Type: BLOOD SPECIMEN Ordering Facility: [facility] Address: [address] [place] [address] Performed By: #### 5 5454-3 #### [facility] CLIA [id number] [address] [place] [address] [place] Potassium [Moles/Vol] 4.3 mmol/L Normal 3.7-5.1 [facility] Comment on above: Order Comment: Speci men Type: BLOOD SPECIMEN Ordering Facility: [facility] Address: [address] [place] [address] Performed By: #### 5 5454-3 #### [facility] CLIA [id number] [address] [place] [address] [place] Sodium [Moles/Vol] 143 mmol/L Normal 136-144 [facility] Comment on above: Order Comment: Speci men Type: BLOOD SPECIMEN Ordering Facility: [facility] Address: [address] [place] [address] Performed By: #### 5 5454-3 #### [facility] CLIA [id number] [address] [place] [address] [place] Urea nitrogen [Mass/Vol] 96 mg/dL High 7-21 [facility] Comment on above: Order Comment: Speci men Type: BLOOD SPECIMEN Ordering Facility: [facility] Address: [address] [place] [address] Performed By: #### 5 5454-3 #### [facility] CLIA [id number] [address] [place] [address] [place] Urinalysis complete panel (U )on 02-13-2024 Bilirubin Ql (U) Negative Negative [facility] Clarity (Unsp spec) Clear Clear [facility] Color (U) Light Yellow yellow [facility] Epithelial cells LM.HPF (Urine sed) [#/Area] Few [facility] Glucose Test strip (U) [Mass/Vol] Negative Trace, Negative [facility] Hemoglobin Ql (U) Negative Negative, Trace [facility] Ketones Ql (U) Negative Negative, Trace [facility] Leukocyte esterase Test strip Ql (U) Negative Negative, 25 Jessi/uL [facility] Nitrite Ql (U) Negative Negative [facility] pH (U) 6.0 [pH] 5.0 - 8.0 [facility] Protein (U) [Mass/Vol] 1+ Abnormal Trace , Negative [facility] RBC LM.HPF (Urine sed) [#/Area] 0-3 /HPF 0-3 /HPF [facility] Specific gravity (U) [Rel density] 1.014 1.005 - 1.030 [facility] Urobilinogen Ql (U) Normal Normal [facility] WBC LM.HPF (Urine sed) [#/Area] 0-5 /HPF 0-5 /HPF [facility] Bilirubin Ql (U) Negative Normal Negative [facility] Comment on above: Order Comment: Speci men Type: URINE SPECIMEN Ordering Facility: [facility] Address: [address] [place] [address] Performed By: #### 2 4356-8 #### [facility] [place] [id number] [address] [place] [address] [place] Clarity (Unsp spec) Clear Normal Clear [facility] Comment on above: Order Comment: Speci men Type: URINE SPECIMEN Ordering Facility: [facility] Address: [address] [place] [address] Performed By: #### 2 4356-8 #### [facility] [place] [id number] [address] [place] [address] [place] Color (U) Light Yellow Normal yellow [facility] Comment on above: Order Comment: Speci men Type: URINE SPECIMEN Ordering Facility: [facility] Address: [address] [place] [address] Performed By: #### 2 4356-8 #### [facility] [place] [id number] [address] [place] [address] [place] Epithelial cells LM.HPF (Urine sed) [#/Area] Few [facility] Comment on above: Order Comment: Speci men Type: URINE SPECIMEN Ordering Facility: [facility] Address: [address] [place] [address] Performed By: #### 2 4356-8 #### [facility] CLIA [id number] [address] [place] [address] [place] Glucose Test strip (U) [Mass/Vol] Negative Normal Trace, Negative [facility] Comment on above: Order Comment: Speci men Type: URINE SPECIMEN Ordering Facility: [facility] Address: [address] [place] [address] Performed By: #### 2 4356-8 #### [facility] [place] [id number] [address] [place] [address] [place] Hemoglobin Ql (U) Negative Normal Negative, Trace [facility] Comment on above: Order Comment: Speci men Type: URINE SPECIMEN Ordering Facility: [facility] Address: [address] [place] [address] Performed By: #### 2 4356-8 #### [facility] [place] [id number] [address] [place] [address] [place] Ketones Ql (U) Negative Normal Negative, Trace [facility] Comment on above: Order Comment: Speci men Type: URINE SPECIMEN Ordering Facility: [facility] Address: [address] [place] [address] Performed By: #### 2 4356-8 #### [facility] [place] [id number] [address] [place] [address] [place] Leukocyte esterase Test strip Ql (U) Negative Normal Negative, 25 Jessi/uL [facility] Comment on above: Order Comment: Speci men Type: URINE SPECIMEN Ordering Facility: [facility] Address: [address] [place] [address] Performed By: #### 2 4356-8 #### [facility] CLIA [id number] [address] [place] [address] [place] Nitrite Ql (U) Negative Normal Negative [facility] Comment on above: Order Comment: Speci men Type: URINE SPECIMEN Ordering Facility: [facility] Address: [address] [place] [address] Performed By: #### 2 4356-8 #### [facility] [place] [id number] [address] [place] [address] [place] pH (U) 6.0 [pH] Normal 5.0-8.0 [facility] Comment on above: Order Comment: Speci men Type: URINE SPECIMEN Ordering Facility: [facility] Address: [address] [place] [address] Performed By: #### 2 4356-8 #### [facility] [place] [id number] [address] [place] [address] [place] Protein (U) [Mass/Vol] 1+ Abnormal Trace , Negative [facility] Comment on above: Order Comment: Speci men Type: URINE SPECIMEN Ordering Facility: [facility] Address: [address] [place] [address] Performed By: #### 2 4356-8 #### [facility] IA [id number] [address] [place] [address] [place] RBC LM.HPF (Urine sed) [#/Area] 0-3 /HPF Normal 0-3 /HPF [facility] Comment on above: Order Comment: Speci men Type: URINE SPECIMEN Ordering Facility: [facility] Address: [address] [place] [address] Performed By: #### 2 4356-8 #### [facility] IA [id number] [address] [place] [address] [place] Specific gravity (U) [Rel density] 1.014 Normal 1.005-1.030 [facility] Comment on above: Order Comment: Speci men Type: URINE SPECIMEN Ordering Facility: [facility] Address: [address] [place] [address] Performed By: #### 2 4356-8 #### [facility] [place] [id number] [address] [place] [address] [facility] Urobilinogen Ql (U) Normal Normal Normal [facility] Comment on above: Order Comment: Speci men Type: URINE SPECIMEN Ordering Facility: [facility] Address: [address] [place], [place] [address] Performed By: #### 2 4356-8 #### [facility] [place] [id number] [address] [place] WBC LM.HPF (Urine sed) [#/Area] 0-5 /HPF Normal 0-5 /HPF [facility] Comment on above: Order Comment: Speci men Type: URINE SPECIMEN Ordering Facility: [facility] Address: [address] [place], [place] [address] Performed By: #### 2 4356-8 #### [facility] CLIA [id number] [address] OF [place]OM CNPTrudi 02-06-2024 CNPN Telephone (MIDMSV) VARSHA CHAUDHRY ([id number]) 1945 F Date Time Provider Department 02/06/[facility] your visit today, we recorded the following information about you: Viola Vidal MA 02/06/2024 10:01 AM Signed Received lab results from [facility]. Placed in provider mailbox for review. [...] Encounter Status:Closed by VIOLA VIDAL on 02/06/24 Normal [facility] Telephone (MIDMSV) VARSHA CHAUDHRY ([id number]) 1945 F Date Time Provider Department 02/06/24 MARYLU HEADLEYMSAngela During your visit today, we recorded the [...] February 06, 2024, 10:31 AM Cecily Baron, LLOYD 02/06/2024 12:26 PM Signed Patient calling back Read message below Voiced understanding She feels great Will wait until next week/ will get lab work while at [facility] Transferred to scheduling to make lab appointment [...] AM Signed Called patient, she reports her brine maker put her on azithromycin for 5 days [...] Encounter Status:Closed by MARYLU HEADLEY on 02/06/24 Normal [facility] CNOVon 12-26-2023 CNOV Office Visit (MIDMAV) VARSHA CHAUDHRY ([id number]) 1945 F Date Time Provider Department 12/26/23 2:30 PM [facility] During your visit today, we recorded the following information about you: Pulse Blood pressure Weight Height 75/minute 201/69 86.5 kg 1.575 m Tiera Spangler, [employer]ARM [employer]OPS TE[employer]ER.[employer] 12/26/2023 2:31 PM Signed Pt is an [...] labs DM-last A1C 8.9. She follows in [place], [place]. Continue endo follow up Plan No changes Labs prior to next follow up Has follow up in [address] Headley. Will keep appt and see me in 6 months Tiera Spangler, MELVA.[employer] Allergies As of Date: 12/26/2023 Noted Allergy [...] hypertension with chronic kidney disease, stage IV ([facility]) [I12.9, N18.4] Other Visit Diagnoses:CKD (chronic kidney disease) stage 4, GFR 15-29 ml/min ([facility]) [N18.4] Proteinuria, unspecified type [R80.9] Hyperkalemia [E87.5] 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, unspecified whether email marketing assistant insulin use ([facility]) [E11.22, N18.4] Vitamin D deficiency [E55.9] Order(s):CBC [SQCBC] Order #: [id number] FUTURE CREATININE RANDOM UR [SQUCRR] Order #: [id number] FUTURE PROTEIN RANDOM UR [SQUTPR] Order #: [id number] FUTURE RENAL FUNCTION PANEL [SQRFP] Order #: [id number] FUTURE VITAMIN D 25 HYDROXY [SQVITD] Order #: [id number] FUTURE Prescriptions as of 12/26/2023 - torsemide [...] - sacubitril (more content not included)... Normal [facility] VARSHA CHAUDHRY ([id number]) 1945 F Date Time Provider Department 12/06/23 MARYLU HEADLEY During your visit today, we recorded the following information about you: Marylu Headley DO 12/06/2023 8:30 AM Signed [facility] work done on Monday12/01/2023. Thank you Raul Hoffman OCCA 12/06/2023 1:28 PM Signed Called and [facility] a vm [facility] at [phone] to request lab results from 12/01/23 per [...] by: Irina Allen, RN - Fully Assessed Reason for Visit: [...] Encounter Status:Closed by MARYLU HEADLEY on 12/06/23 [facility] 11-21-2023 [facility] Telephone (MIDMSV) VARSHA CHAUDHRY ([id number]) 1945 F Date Time Provider Department 11/21/23 TIERA SPANGLERNYU LANGONE [facility] During your visit today, we recorded the following information about you: Irina Allen, LLOYD 11/21/2023 2:15 PM Signed Patient?s identity has been confirmed by name and birthdate: Yes Call received from Varghese Gillespie at [facility] at 2:08 PM to [...] message for critical lab results Irina Allen, STEVEN, RN He said he is FAXING results over to FAX # [phone] Tiera Spangler APRN.DORINA 11/21/2023 2:33 PM Signed Called pt re: below Recommend ER eval for continued rise in BUN and hyperkalemia No answer LMTCB and that she needs to go to local ER for eval Called x 2 Await call back Tiera Spangler APRN.Tiera Pugh APRN.DORINA 11/21/2023 2:53 PM Signed Attempted to reach pt again No answer LMTCB Tiera Spangler APRN.Irina Figueroa RN 11/21/2023 4:05 PM Signed Pt called back She got the message about going to her Local ED She is having her drive her to the [place] [facility] Pt was asking if Provider Crys was going to call report / or tell them she was coming? I do not know if that is the plan; but I told pt not to wait and to have her take her there now but I would route this message to the [employer]/team Marylu Headley DO 11/28/2023 12:08 PM Signed [...] Encounter Status:Closed by TIERA SP[facility]GLER on 11/21/23 [facility] VARSHA CHAUDHRY ([id number]) 1945 F Date Time Provider Department 11/15/23 TIERA SPANGLER [facility] During your visit today, we recorded the following information about you: Brigitte Phelps OCCA 11/15/2023 11:53 AM Signed Contacted patient to advise her of the message below from Tiera Spangler [facility]. She agreed with plan as stated below and will mostly likely get it done today. Please remind patient she is due for nonfasting labs at [facility]. I sent order last week. [...] Encounter Status:Closed by BRIGITTE PHELPS on 11/15/23 Normal [facility] Telephone (MIDJustFoodForDogsV) VARSHA CHAUDHRY ([id number]) 1945 F Date Time Provider Department 11/15/23 TIERA SPANGLERMSV During your visit today, we recorded the following information about you: Liban Naqvi RN 11/15/2023 3:01 PM Signed The [facility] is calling. The pt's BUN from the pt's lab draw was 124. They are faxing the entire panel results to [facility] fax number [phone] for your review. Tiera Spangler APRN.CNP 11/15/2023 3:58 PM Signed Called pt Her [...] up labs 11/21 BP 118/57 Tiera Spangler APRN.[employer] Allergies As of Date: 11/15/2023 Noted Allergy [...] Status:Closed by LIBAN NAQVI RN on 11/17/23 [facility] 11[facility]09-[facility] VARSHA CHAUDHRY ([id number]) 1945 F Date Time Provider Department 11/09/23 TIERA SPANGLER [facility] During your visit today, we recorded the following information about you: Viola Saldivar 11/09/2023 9:12 AM Signed [facility] is requesting a signed order showing diagnosis for the Renal Function Panel lab that you ordered for her. The paper that the patient brought in to them doesn't have any diagnosis codes. Please fax over to: [phone] Patient is currently at the hospital to have this done . Patient has been identified by name and birthdate. Duration of symptoms: N/A Person calling: self Call patient at: on cell [phone] (home) Was an appointment scheduled: No Closing statement: Results or non-symptom based questions: Thank you for calling [facility], your call will be returned within the next business day. Viola Tiera Haley APRN.CNP 11/09/2023 11:42 AM Signed Order faxed [...] Encounter Status:Closed by TIERA SPANGLER on [facility] VARSHA CHAUDHR[facility] ([id number]) 1945 F Date Time Provider Department 11/09/23 TIERA SPANGLER [facility] During your visit today, we recorded the following information about you: Brigitte Phelps OCCA 11/09/2023 1:33 PM Signed Faxed lab order for renal function panel to [facility] at [phone] per Tiera Spangler [facility]. Please fax order for renal panel to [phone] EFE Mckeon Allergies As of Date: 11/09/2023 [...] Encounter Status:Closed by BRIGITTE PHELPS on 11/09/23 [facility] 11-06-2023 [facility] Telephone ([facility]) VARSHA CHAUDHRY ([id number]) 1945 F Date Time Provider Department 11/06/23 TIERA SPANGLER During your visit today, we recorded the following information about you: Candace Veliz 11/06/2023 4:25 PM Signed Took a call from Erika who works at [facility]. Erika was calling [...] review labs No answer LMTCB re: below Tiera Spangler APRN.Liban Kwan, LLOYD 11/08/2023 12:05 PM Signed The pt [...] day Labs again in 1 week, nonfasting Tiera Spangler APRN.Tiera Pugh APRN.[facility] 11/08/2023 2:43 PM Signed Received outside labs 11/06/23 Na 141 K 4.7 Cl 104 CO2 29.8 Wilde 11 Gluc 237 BUN 117 Scr 2.42 Ca 9.1 PO4 4.7 Alb 3.5 Will repeat next week as noted after decrease in torsemide to 20mg every other day ARABELLA Larson Jennifer L, APRN.[facility] 11/08/2023 2:43 PM Signed Addended by: TIERA [...] Encounter Status:Closed by CANDACE VELIZ on 11/06/23 [facility] 10-24-2023 [facility] Telephone (MIDMSV) VARSHA CHAUDHRY ([id number]) 1945 F Date Time Provider Department 10/24/23 TIERA SPANGLER [facility] During your visit today, we recorded the following information about you: Tiera Spangler APRN.[facility] 10/24/2023 11:48 AM Signed Called pt to see if she completed repeat labs She did not She states she didn't receive order She has been ill for 1 week I asked she repeat labs next week once she is feeling better Will have order faxed again to [facility] and mailed to patient Tiera Spangler APRN.[employer] Akshat Schaeffer 10/24/2023 12:17 PM Signed The requested document has been faxed to [phone]. Received a fax confirmation of [place] on 10-24-23. The order has also been placed in the outgoing mail as well. Akshat Schaeffer Please mail order to patient and fax to [place] as well. [phone] Renal panel Irina Allen RN 11/01/2023 2:43 [...] coughing? Please get back to her on [phone] Pt has an answering machine Akshat Schaeffer [...] Encounter Status:Closed by TIERA SPANGLER on 10/24/23 [facility] VARSHA CHAUDHRY ([id number]) 1945 F Date Time Provider Department 10/23/23 TIERA SPANGLER During your visit today, we recorded the following information about you: Akshat Schaeffer 10/23/2023 10:01 AM Signed ----- Message from Tiera Spangler APRN.[employer] sent at 10/23/2023 8:57 AM EST ----- Please call [facility] and have repeat BUN and creatinine faxed over Tiera Spangler APRN.Akshat Woodruff 10/24/2023 10:15 AM Addendum I called the Medical Records department at [facility]. My call went to voicemail. I did not leave a message. I will try to call back @ [phone], Medical Records press 2, then 1. Akshat Moreno 10/24/2023 10:16 AM Signed I called but did not speak with nor leave a voicemail as it is the same as below. Akshat Mroeno 10/24/2023 11:28 AM Signed I called and spoke with the staff at [facility] lab. I informed the staff of the below request and gave the fax number of [phone]. The lab staff told me that they [...] Encounter Status:Closed by AKSHAT SCHAEFFER on 10/23/23 [facility] 10-10-2023 [facility] Telephone ([facility]) VARSHA CHAUDHRY ([id number]) 1945 F Date Time Provider Department 10/10/23 TIERA SPANGLER During your visit today, we recorded the following information about you: Liban Zuñiga, LLOYD 10/10/2023 2:48 PM Signed Patient?s identity has been confirmed by name and birthdate: Yes Call received from Lela at [facility] to report a critical value [...] Patient will be leaving to go to [place] at 9 AM today. Her brother is in the hospital. She will return home after 3pm. If calling back before 9, please call: [phone] (home); if after 9AM, please use patient's spouse's cell # [phone] (she doesn't have a cell) Tiera Spangler APRN.CNP 10/11/2023 9:49 AM Signed Called pt re: below She feels well 93/44 this morning 93/48 yesterday Next cardiology follow up is Nov 072022 Decrease torsemide to 20mg daily Repeat labs in 1 week-fax order to [phone] Call for any swelling, increased weight or [...] if Varsha had her labs done at [facility] as of yet. Nestor told [...] 3 10/11/2023 (more content not included)... Normal [facility] VARSHA CHAUDHRY ([id number]) 1945 F Date Time Provider Department 10/09/23 TIERA SPANGLER During your visit today, we recorded the following information about you: ShakeelElva almodovar 10/09/2023 3:48 PM Signed Varsha Chaudhry is calling Tiera Spangler APRN.[employer] today needs labs ordered and faxed over to [facility]. F: [phone] No chief complaint on file. Patient has been identified by name and birthdate. Duration of symptoms: N/A Person calling: self Call patient at: at home [phone] (home) [phone] (cell) Was an appointment scheduled: No Closing statement: Results or non-symptom based questions: Thank you for calling [facility], your call will be returned within the next business day. Elva Akshat Gr 10/09/2023 4:10 PM Signed The requested document has been faxed to [phone] . Received a fax confirmation of [place] [...] Fully Assessed Reason for Visit: Lab Orders [5578] Prescriptions as of 10/09/2023 - insulin lispro-aabc (LYUMTORIN MERCERIKPEN) 100 unit/mL insulin pen Inject subcutaneously [...] Status:Closed by AKSHAT SCHAEFFER on 10/09/23 Normal [facility] 04-26-2023 Natriuretic peptide B (Bld) [Mass/Vol] 775.0 pg/mL Normal <=1,800.0 [facility] Comment on above: Performed By: #### C BC #### [facility] [address] [address] [address] Elaina Garnett BUNon 04-26-2023 Urea nitrogen [Mass/Vol] 68.0 mg/dL Critically high 7.0-18.0 [facility] Comment on above: Performed By: #### R SPLUS #### [facility] [address] [address] [address] Elaina Garnett CBC AUTO DIFFon 04-26-2023 BASO # 0.1 103/ul Normal 0.0-0.1 [facility] Comment on above: Performed By: #### C BC #### [facility] [address] [place] [address] Dr. Elaina Garnett Basophils/100 WBC (Bld) 1.0 % Normal 0.2-2.0 [facility] Comment on above: Performed By: #### C BC #### [facility] [address] [place] [address] Dr. Elaina Garnett EO # 0.3 103/ul Normal 0.0-0.7 [facility] Comment on above: Performed By: #### C BC #### [facility] [address] [place] [address] Dr. Elaina Garnett Eosinophils/100 WBC (Bld) 2.8 % Normal 0.9-7.0 [facility] Comment on above: Performed By: #### C BC #### [facility] [address] [place] [address] Dr. Elaina Garnett Erythrocyte distribution width (RBC) [Ratio] 13.9 % Normal 11.0-15.0 [facility] Comment on above: Performed By: #### C BC #### [facility] [address] [place] [address] Dr. Elaina Garnett Hematocrit (Bld) [Volume fraction] 36.8 % Normal 36.0-48.0 [facility] Comment on above: Performed By: #### C BC #### [facility] [address] [place] [address] Dr. Elaina Garnett Hemoglobin (Bld) [Mass/Vol] 12.1 g/dL Normal 12.0-16.0 [facility] Comment on above: Performed By: #### C BC #### [facility] [address] [place] [address] Dr. Elaina Garnett IG # 0.03 10e3/ul Normal 0.00-0.03 [facility] Comment on above: Performed By: #### C BC #### [facility] [address] [place] [address] Dr. Elaina Garnett IG % 0.3 % Normal 0.0-0.5 [facility] Comment on above: Performed By: #### C BC #### [facility] [address] [place] [address] Dr. Elaina Garnett LYMPH # 2.5 103/ul Normal 1.2-3.8 [facility] Comment on above: Performed By: #### C BC #### [facility] [address] [place] [address] Dr. Elaina Garnett Lymphocytes/100 WBC (Bld) 27.7 % Normal 20.5-60.0 [facility] Comment on above: Performed By: #### C BC #### [facility] [address] [place] [address] Dr. Elaina Garnett MANUAL DIFF REQ NO Normal [facility] Comment on above: Performed By: #### C BC #### [facility] [address] [place] [address] Dr. Elaina Garnett MCH (RBC) [Entitic mass] 29.7 pg Normal 26.7-34.0 [facility] Comment on above: Performed By: #### C BC #### [facility] [address] [place] [address] Dr. Elaina Garnett MCHC (RBC) [Mass/Vol] 32.9 g/dL Normal 29.9-35.2 [facility] Comment on above: Performed By: #### C BC #### [facility] [address] [place] [address] Dr. Elaina Garnett MCV (RBC) [Entitic vol] 90.4 fL Normal 81.0-99.0 [facility] Comment on above: Performed By: #### C BC #### [facility] [address] [place] [address] Dr. Elaina Garnett MONO # 1.0 103/ul Critically high 0.3-0.8 [facility] Comment on above: Performed By: #### C BC #### [facility] [address] [place] [address] Dr. Elaina Garnett Monocytes/100 WBC (Bld) 10.7 % Normal 1.7-12.0 [facility] Comment on above: Performed By: #### C BC #### [facility] [address] [place] [address] Dr. Elaina Garnett NEUT # 5.1 103/ul Normal 1.4-6.5 [facility] Comment on above: Performed By: #### C BC #### [facility] [address] [place] [address] Dr. Elaina Garnett Neutrophils/100 WBC (Bld) 57.5 % Normal 43.0-75.0 [facility] Comment on above: Performed By: #### C BC #### [facility] [address] [address] [address] Elaina Garnett Platelet mean volume (Bld) [Entitic vol] 9.4 fL Critically low 9.5-13.5 [facility] Comment on above: Performed By: #### C BC #### [facility] [address] [place] [address] Dr. Elaina Garnett PLT 258 103/ul Normal 150-450 [facility] Comment on above: Performed By: #### C BC #### [facility] [address] [place] [address] Dr. Elaina Garnett RBC 4.07 106/ul Critically low 4.20-5.40 [facility] Comment on above: Performed By: #### C BC #### [facility] [address] [place] [address] Dr. Elaina Garnett WBC 8.9 103/ul Normal 4.0-11.0 [facility] Comment on above: Performed By: #### C BC #### [facility] [address] [place] [address] Dr. Elaina Garnett CREATININEon 04-26-2023 Creatinine [Mass/Vol] 1.69 mg/dL Critically high 0.55-1.02 [facility] Comment on above: Performed By: #### C BC #### [facility] [address] [place] [address] Dr. Elaina Garnett EGFR-AF [place]ER 35 mL/min/1.73m2 Critically low >=60 [facility] Comment on above: Performed By: #### C BC #### [facility] [address] [place] [address] Dr. Elaina Garnett EGFR-NON AF [place] 29 mL/min/1.73m2 Critically low >=60 [facility] Comment on above: Performed By: #### C BC #### [facility] [address] [place] [address] Dr. Elaina Garnett ELECTROLYTESon 04-26-2023 Anion gap [Moles/Vol] 13.2 mmol/L Normal [facility] Comment on above: Performed By: #### R SPLUS #### [facility] [address] [address] [address] Elaina Garnett Chloride [Moles/Vol] 106 mmol/L Normal 98-107 [facility] Comment on above: Performed By: #### R SPLUS #### [facility] [address] [place] [address] Dr. Elaina Garnett CO2 [Moles/Vol] 26.3 mmol/L Normal 21.0-32.0 [facility] Comment on above: Performed By: #### R SPLUS #### [facility] [address] [address] [address] Elaina Garnett Potassium [Moles/Vol] 5.5 mmol/L Critically high 3.5-5.1 [facility] Comment on above: Performed By: #### R SPLUS #### [facility] [address] [place] [address] Dr. Elaina Garnett Sodium [Moles/Vol] 140 mmol/L Normal 136-145 [facility] Comment on above: Performed By: #### R SPLUS #### [facility] [address] [address] [address] Elaina Garnett LIVER PROFILEon 04-26-2023 Albumin [Mass/Vol] 3.4 g/dL Normal 3.4-5.0 [facility] Comment on above: Performed By: #### R SPLUS #### [facility] [address] [place] [address] Dr. Elaina Garnett Albumin/Globulin [Mass ratio] 0.9 {ratio} Normal [facility] Comment on above: Performed By: #### R SPLUS #### [facility] [address] [place], [place] [id number] Dr. Elaina Garnett ALP [Catalytic activity/Vol] 91 U/L Normal 46-116 [facility] Comment on above: Performed By: #### R SPLUS #### [facility] [address] [place] [address] Dr. Elaina Garnett ALT [Catalytic activity/Vol] 18 U/L Normal 14-59 [facility] Comment on above: Performed By: #### R SPLUS #### [facility] [address] [address] [address] Elaina Garnett AST [Catalytic activity/Vol] 16 U/L Normal 15-37 [facility] Comment on above: Performed By: #### R SPLUS #### [facility] [address] [place] [address] Dr. Elaina Garnett BILI, CONJUGATED 0.1 mg/dL Normal 0.0-0.2 [facility] Comment on above: Performed By: #### R SPLUS #### [facility] [address] [place] [address] Dr. Elaina Garnett Bilirubin [Mass/Vol] 0.6 mg/dL Normal 0.2-1.0 [facility] Comment on above: Performed By: #### R SPLUS #### [facility] [address] [place] [address] Dr. Elaina Garnett Globulin (S) [Mass/Vol] 4.0 g/dL Normal T [facility] Comment on above: Performed By: #### R SPLUS #### [facility] [address] [place] [address] Dr. Elaina Garnett Protein [Mass/Vol] 7.4 g/dL Normal 6.4-8.2 [facility] Comment on above: Performed By: #### R SPLUS #### [facility] [address] [place] [address] Dr. Elaina Garnett ER URINE PROFILEon 3 Bilirubin Ql (U) Negative Normal NEGATIVE [facility] Comment on above: Performed By: #### R SPLUS #### [facility] [address] [place] [address] Dr. Elaina Garnett Clarity (U) CLEAR Normal CLEAR [facility] Comment on above: Performed By: #### R SPLUS #### [facility] [address] [place] [address] Dr. Elaina Garnett Color (U) LT. YELLOW Normal YELLOW [facility] Comment on above: Performed By: #### R SPLUS #### [facility] [address] [place] [address] Dr. Elaina Garnett ERUAHRen A micrscopic examination will be performed if indicated. Normal [facility] Comment on above: Performed By: #### R SPLUS #### [facility] [address] [place] [address] Dr. Elaina Garnett Glucose Ql (U) Negative Normal NEGATIVE [facility] Comment on above: Performed By: #### R SPLUS #### [facility] [address] [place] [address] Dr. Elaina Garnett Hemoglobin Ql (U) Negative Normal NEGATIVE [facility] Comment on above: Performed By: #### R SPLUS #### [facility] [address] [place] [address] Dr. Elaina Garnett Ketones Ql (U) TRACE Abnormal NEGATIVE [facility] Comment on above: Performed By: #### R SPLUS #### [facility] [address] [place] [address] Dr. Elaina Garnett LEUKOCYTES Negative Normal NEGATIVE [facility] Comment on above: Performed By: #### R SPLUS #### [facility] [address] [place] [address] Dr. Elaina Garnett Nitrite Ql (U) Negative Normal NEGATIVE [facility] Comment on above: Performed By: #### R SPLUS #### [facility] [address] [place] [address] Dr. Elaina Garnett pH (U) 5.0 [pH] Normal 5-9 [facility] Comment on above: Performed By: #### R SPLUS #### [facility] [address] [place] [address] Dr. Elaina Garnett Protein (U) [Mass/Vol] 100 mg/dL Abnormal NEGAT DULCE/ TRACE [facility] Comment on above: Performed By: #### R SPLUS #### [facility] [address] [place] [address] Dr. Elaina Garnett SPEC GRAVITY 1.020 Normal 1.005-<=1.025 [facility] Comment on above: Performed By: #### R SPLUS #### [facility] [address] [place] [address] Dr. Elaina Garnett UR MICRO IND NOT INDICATED Normal [facility] Comment on above: Performed By: #### R SPLUS #### [facility] [address] [place] [address] Dr. Elaina Garnett Urobilinogen Qn (U) 0.2 {Danny'U}/dL Normal 0.2 - 1. 0 [facility] Comment on above: Performed By: #### R SPLUS #### [facility] [address] [place] [address] Dr. Elaina Garnett RESPIRATORY PANEL PLUSon Adenovirus Not detected Normal NOT DETECTED [facility] Comment on above: Performed By: #### R SPLUS #### [facility] [address] [place] [address] Dr. Elaina Camargo. Parapertusis Not detected Normal NOT DETECTED [facility] Comment on above: Performed By: #### R SPLUS #### [facility] [address] [place] [address] Dr. Elaina Watson Pertussis Not detected Normal NOT DETECTED [facility] Comment on above: Performed By: #### R SPLUS #### [facility] [address] [place] [address] Dr. Elaina Garnett Chlamydia Pneumoniae Not detected Normal NOT DETECTED [facility] Comment on above: Performed By: #### R SPLUS #### [facility] [address] [place] [address] Dr. Elaina Garnett Coronavirus 229E Not detected Normal NOT DETECTED [facility] Comment on above: Performed By: #### R SPLUS #### [facility] [address] [place] [address] Dr. Elaina Garnett Coronavirus HKU1 Not detected Normal NOT DETECTED [facility] Comment on above: Performed By: #### R SPLUS #### [facility] [address] [place] [address] Dr. Elaina Garnett Coronavirus NL63 Not detected Normal NOT DETECTED [facility] Comment on above: Performed By: #### R SPLUS #### [facility] [address] [place] [address] Dr. Elaina Garnett Coronavirus OC43 Not detected Normal NOT DETECTED [facility] Comment on above: Performed By: #### R SPLUS #### [facility] [address] [place] [address] Dr. Elaina Garnett Influenza A H1 Not detected Normal NOT DETECTED [facility] Comment on above: Performed By: #### R SPLUS #### [facility] [address] [place] [address] Dr. Elaina Garnett Influenza A H1 2009 Not detected Normal NOT DETECTED [facility] Comment on above: Performed By: #### R SPLUS #### [facility] [address] [place] [address] Dr. Elaina Garnett Influenza A H3 Not detected Normal NOT DETECTED [facility] Comment on above: Performed By: #### R SPLUS #### [facility] [address] [place] [address] Dr. Elaina Garnett Influenza B Not detected Normal NOT DETECTED [facility] Comment on above: Performed By: #### R SPLUS #### [facility] [address] [place] [address] Dr. Elaina Garnett Metapneumovirus Not detected Normal NOT DETECTED [facility] Comment on above: Performed By: #### R SPLUS #### [facility] [address] [place] [address] Dr. Elaina Garnett Mycoplas. Pneumoniae Not detected Normal NOT DETECTED [facility] Comment on above: Performed By: #### R SPLUS #### [facility] [address] [place] [address] Dr. Elaina Garnett Parainfluenza 1 Not detected Normal NOT DETECTED [facility] Comment on above: Performed By: #### R SPLUS #### [facility] [address] [place] [address] Dr. Elaina Garnett Parainfluenza 2 Not detected Normal NOT DETECTED [facility] Comment on above: Performed By: #### R SPLUS #### [facility] [address] [place] [address] Dr. Elaina Garnett Parainfluenza 3 Not detected Normal NOT DETECTED [facility] Comment on above: Performed By: #### R SPLUS #### [facility] [address] [place] [address] Dr. Elaina Garnett Parainfluenza 4 Not detected Normal NOT DETECTED [facility] Comment on above: Performed By: #### R SPLUS #### [facility] [address] [place] [address] Dr. Elaina Garnett Rhino/Enterovirus Not detected Normal NOT DETECTED [facility] Comment on above: Performed By: #### R SPLUS #### [facility] [address] [place] [address] Dr. Elaina Garnett RP2 Header 1 RESPIRATORY PANEL: VIRUSES Normal [facility] Comment on above: Performed By: #### R SPLUS #### [facility] [address] [place] [address] Dr. Elaina Garnett RP2 Header 2 RESPIRATORY PANEL: BACTERIA Normal [facility] Comment on above: Performed By: #### R SPLUS #### [facility] [address] [place] [address] Dr. Elaina Garnett RSV Not detected Normal NOT DETECTED [facility] Comment on above: Performed By: #### R SPLUS #### [facility] [address] [place] [address] Dr. Elaina Garnett SARS-CoV-2 (COVID-19) RNA BARB+probe Ql (Unsp spec) Not detected Normal NOT DETECTED [facility] Comment on above: Performed By: #### R SPLUS #### [facility] [address] [place] [address] Dr. Elaina Garnett XR CHEST 1 Von [...] JUAN GARRETT Date: 2023-03-25 23:48 Normal [facility] CARDIAC MIKE ADMITon 023 CK [Catalytic activity/Vol] 219 U/L Critically high 26-192 [facility] Comment on above: Performed By: #### C BC #### [facility] [address] [place] [address] Dr. Elaina Garnett CK.MB [Mass/Vol] 1.21 ng/mL Normal <=3.60 [facility] Comment on above: Performed By: #### C BC #### [facility] [address] [place] [address] Dr. Elaina Garnett HSTROP 17.4 pg/mL Normal 4.0-51.3 [facility] Comment on above: Result Comment: CUT- OFF POINTS HAVE BEEN ESTABLISHED BASED ON THE FOURTH UNIVERSAL DEFINITIONS OF MYOCARDIAL INFARCTION. THE UPPER REFERENCE LIMIT (URL) OF TROPONIN, DEFINED THE 99TH PERCENTILE OF cTnI DISTRIBUTION IN A REFERENCE POPULATION, HAS BEEN CONFIRMED THE DECISION THRESHOLD FOR ND DIAGNOSIS. Performed By: #### C BC #### [facility] [address] [address] [address] Elaina Garnett TAO 332 ng/mL Critically high 9-82 [facility] Comment on above: Performed By: #### C BC #### [facility] [address] [address] [address] Elaina Garnett CBC AUTO DIFFon 03-25-2023 BASO # 0.1 103/ul Normal 0.0-0.1 [facility] Comment on above: Performed By: #### C BC #### [facility] [address] [address] [address] Elaina Garnett Basophils/100 WBC (Bld) 0.6 % Normal 0.2-2.0 [facility] Comment on above: Performed By: #### C BC #### [facility] [address] [place] [address] Dr. Elaina Garnett EO # 0.2 103/ul Normal 0.0-0.7 [facility] Comment on above: Performed By: #### C BC #### [facility] [address] [place] [address] Dr. Elaina Garnett Eosinophils/100 WBC (Bld) 2.0 % Normal 0.9-7.0 [facility] Comment on above: Performed By: #### C BC #### [facility] [address] [place] [address] Dr. Elaina Garnett Erythrocyte distribution width (RBC) [Ratio] 12.9 % Normal 11.0-15.0 [facility] Comment on above: Performed By: #### C BC #### [facility] [address] [place] [address] Dr. Elaina Garnett Hematocrit (Bld) [Volume fraction] 33.6 % Critically low 36.0-48.0 [facility] Comment on above: Performed By: #### C BC #### [facility] [address] [place] [address] Dr. Elaina Garnett Hemoglobin (Bld) [Mass/Vol] 11.3 g/dL Critically low 12.0-16.0 [facility] Comment on above: Performed By: #### C BC #### [facility] [address] [place] [address] Dr. Elaina Garnett IG # 0.04 10e3/ul Critically high 0.00-0.03 [facility] Comment on above: Performed By: #### C BC #### [facility] [address] [place] [address] Dr. Elaina Garnett IG % 0.4 % Normal 0.0-0.5 [facility] Comment on above: Performed By: #### C BC #### [facility] [address] [place] [address] Dr. Elaina Garnett LYMPH # 1.8 103/ul Normal 1.2-3.8 [facility] Comment on above: Performed By: #### C BC #### [facility] [address] [place] [address] Dr. Elaina Garnett Lymphocytes/100 WBC (Bld) 19.5 % Critically low 20.5-60.0 [facility] Comment on above: Performed By: #### C BC #### [facility] [address] [place] [address] Dr. Elaina Garnett MANUAL DIFF REQ NO Normal [facility] Comment on above: Performed By: #### C BC #### [facility] [address] [place] [address] Dr. Elaina Garnett MCH (RBC) [Entitic mass] 30.8 pg Normal 26.7-34.0 [facility] Comment on above: Performed By: #### C BC #### [facility] [address] [place] [address] Dr. Elaina Garnett MCHC (RBC) [Mass/Vol] 33.6 g/dL Normal 29.9-35.2 [facility] Comment on above: Performed By: #### C BC #### [facility] [address] [place] [address] Dr. Elaina Garnett MCV (RBC) [Entitic vol] 91.6 fL Normal 81.0-99.0 [facility] Comment on above: Performed By: #### C BC #### [facility] [address] [place] [address] Dr. Elaina Garnett MONO # 1.9 103/ul Critically high 0.3-0.8 [facility] Comment on above: Performed By: #### C BC #### [facility] [address] [place] [address] Dr. Elaina Garnett Monocytes/100 WBC (Bld) 19.7 % Critically high 1.7-12. 0 [facility] Comment on above: Performed By: #### C BC #### [facility] [address] [place] [address] Dr. Elaina Garnett NEUT # 5.4 103/ul Normal 1.4-6.5 [facility] Comment on above: Performed By: #### C BC #### [facility] [address] [address] [address] Elaina Garnett Neutrophils/100 WBC (Bld) 57.8 % Normal 43.0-75.0 [facility] Comment on above: Performed By: #### C BC #### [facility] [address] [address] [address] Elaina Garnett Platelet mean volume (Bld) [Entitic vol] 9.7 fL Normal 9.5-13.5 [facility] Comment on above: Performed By: #### C BC #### [facility] [address] [place] [address] Dr. Elaina Garnett PLT 272 103/ul Normal 150-450 [facility] Comment on above: Performed By: #### C BC #### [facility] [address] [place] [address] Dr. Elaina Garnett RBC 3.67 106/ul Critically low 4.20-5.40 [facility] Comment on above: Performed By: #### C BC #### [facility] [address] [place] [address] Dr. Elaina Garnett WBC 9.4 103/ul Normal 4.0-11.0 [facility] Comment on above: Performed By: #### C BC #### [facility] [address] [place] [address] Dr. Elaina Garnett LACTATE/LACTIC ACIDon 2022 Lactate [Moles/Vol] 0.7 mmol/L Normal 0.4-2.0 [facility] Comment on above: Performed By: #### C BC #### [facility] [address] [place] [address] Dr. Elaina Garnett PROF CHEM 8 (BAS METB)on Anion gap [Moles/Vol] 13.5 mmol/L Normal [facility] Comment on above: Performed By: #### C BC #### [facility] [address] [place] [address] Dr. Elaina Garnett Calcium [Mass/Vol] 9.0 mg/dL Normal 8.5-10.1 [facility] Comment on above: Performed By: #### C BC #### [facility] [address] [address] [address] Elaina Garnett Chloride [Moles/Vol] 109 mmol/L Critically high 98-107 [facility] Comment on above: Performed By: #### C BC #### [facility] [address] [address] [address] Elaina Garnett CO2 [Moles/Vol] 21.9 mmol/L Normal 21.0-32.0 [facility] Comment on above: Performed By: #### C BC #### [facility] [address] [place] [address] Dr. Elaina Garnett Creatinine [Mass/Vol] 2.03 mg/dL Critically high 0.55-1.02 [facility] Comment on above: Performed By: #### C BC #### [facility] [address] [place] [address] Dr. Elaina Garnett EGFR-AF HONG [place]ER 29 mL/min/1.73m2 Critically low >=60 [facility] Comment on above: Performed By: #### C BC #### [facility] [address] [place] [address] Dr. Elaina Garnett EGFR-NON AF [place] 24 mL/min/1.73m2 Critically low >=60 [facility] Comment on above: Performed By: #### C BC #### [facility] [address] [address] [address] Elaina Garnett Glucose [Mass/Vol] 72 mg/dL Critically low 74-106 [facility] Comment on above: Performed By: #### C BC #### [facility] [address] [place] [address] Dr. Elaina Garnett Potassium [Moles/Vol] 4.4 mmol/L Normal 3.5-5.1 [facility] Comment on above: Performed By: #### C BC #### [facility] [address] [place] [address] Dr. Elaina Garnett Sodium [Moles/Vol] 140 mmol/L Normal 136-145 [facility] Comment on above: Performed By: #### C BC #### [facility] [address] [address] [address] Elaina Garnett Urea nitrogen [Mass/Vol] 70.0 mg/dL Critically high 7.0-18.0 [facility] Comment on above: Performed By: #### C BC #### [facility] [address] [address] [address] Elaina Garnett Urea nitrogen/Creatinine [Mass ratio] 34.5 mg/mg Normal [facility] Comment on above: Performed By: #### C BC #### [facility] [address] [address] [address] Elaina Garnett CBC panel Auto (Bld)on 01-10 Erythrocyte distribution width (RBC) [Ratio] 13.3 % 11.5 - 15.0 % [facility] Hematocrit (Bld) [Volume fraction] 39.4 % 36.0 - 46.0 % [facility] Hemoglobin (Bld) [Mass/Vol] 12.5 g/dL 11.5 - 15.5 g/dL [facility] MCH (RBC) [Entitic mass] 29.1 pg 26.0 - 34.0 pg [facility] MCHC (RBC) [Mass/Vol] 31.7 g/dL 30.5 - 36.0 g/dL [facility] MCV (RBC) [Entitic vol] 91.6 fL 80.0 - 100.0 fL [facility] Nucleated RBC (Bld) [#/Vol] <0.01 k/uL [facility] Platelet mean volume (Bld) [Entitic vol] 10.4 fL 9.0 - 12.7 fL [facility] Platelets (Bld) [#/Vol] 256 10*3/uL 150 - 400 k/uL [facility] RBC (Bld) [#/Vol] 4.30 10*6/uL 3.90 - 5.2 0 m/uL [facility] WBC (Bld) [#/Vol] 7.54 10*3/uL 3.70 - 11. 00 k/uL [facility] PTH INTACT BLDon 01-10-2023 Parathyrin.intact [Mass/Vol] 65 pg/mL 15 - 65 pg/mL [facility] Renal function 2000 panelon 01-10-2023 Albumin [Mass/Vol] 4.3 g/dL 3.9 - 4.9 g/dL [facility] Anion gap [Moles/Vol] 12 mmol/L 9 - 18 mmol/L [facility] Calcium [Mass/Vol] 9.9 mg/dL 8.5 - 10. 2 mg/dL [facility] Chloride [Moles/Vol] 102 mmol/L 97 - 10 5 mmol/L [facility] CO2 [Moles/Vol] 24 mmol/L 22 - 30 mmol/L [facility] Creatinine [Mass/Vol] 2.00 mg/dL High 0.58 - 0.96 mg/dL [facility] Estimated Glomerular Filtration Rate 25 mL/min/1.73m Low >=60 mL/min/1.73m [facility] Glucose [Mass/Vol] 309 mg/dL High 74 - 99 mg/dL [facility] Phosphate [Mass/Vol] 4.2 mg/dL 2.7 - 4 .8 mg/dL [facility] Potassium [Moles/Vol] 4.9 mmol/L 3.7 - 5.1 mmol/L [facility] Sodium [Moles/Vol] 138 mmol/L 136 - 144 mmol/L [facility] Urea nitrogen [Mass/Vol] 81 mg/dL High 7 - 21 mg/dL [facility] CARDIAC MIKE 3-6on 2 CK [Catalytic activity/Vol] 107 U/L Normal 26-192 [facility] Comment on above: Performed By: #### C MREP #### [facility] [address] [address] [address] Elaina Garnett CK.MB [Mass/Vol] 2.62 ng/mL Normal <=3.60 [facility] Comment on above: Performed By: #### C MREP #### [facility] [address] [address] [address] Elaina Garnett HSTROP 9.0 pg/mL Normal 4.0-51.3 [facility] Comment on above: Result Comment: CUT- OFF POINTS HAVE BEEN ESTABLISHED BASED ON THE FOURTH UNIVERSAL DEFINITIONS OF MYOCARDIAL INFARCTION. THE UPPER REFERENCE LIMIT (URL) OF TROPONIN, DEFINED THE 99TH PERCENTILE OF cTnI DISTRIBUTION IN A REFERENCE POPULATION, HAS BEEN CONFIRMED THE DECISION THRESHOLD FOR ND DIAGNOSIS. Performed By: #### C MREP #### [facility] [address] [place] [address] Dr. Elaina Garnett CBC AUTO DIFFon 11-05-2022 BASO # 0.1 103/ul Normal 0.0-0.1 [facility] Comment on above: Performed By: #### C BC #### [facility] [address] [place] [address] Dr. Elaina Garnett Basophils/100 WBC (Bld) 0.6 % Normal 0.2-2.0 [facility] Comment on above: Performed By: #### C BC #### [facility] [address] [place] [address] Dr. Elaina Garnett EO # 0.2 103/ul Normal 0.0-0.7 [facility] Comment on above: Performed By: #### C BC #### [facility] [address] [place] [address] Dr. Elaina Garnett Eosinophils/100 WBC (Bld) 2.1 % Normal 0.9-7.0 [facility] Comment on above: Performed By: #### C BC #### [facility] [address] [place] [address] Dr. Elaina Garnett Erythrocyte distribution width (RBC) [Ratio] 13.2 % Normal 11.0-15.0 [facility] Comment on above: Performed By: #### C BC #### [facility] [address] [place] [address] Dr. Elaina Garnett Hematocrit (Bld) [Volume fraction] 37.1 % Normal 36.0-48.0 [facility] Comment on above: Performed By: #### C BC #### [facility] [address] [place] [address] Dr. Elaina Garnett Hemoglobin (Bld) [Mass/Vol] 12.4 g/dL Normal 12.0-16.0 [facility] Comment on above: Performed By: #### C BC #### [facility] [address] [place] [address] Dr. Elaina Garnett IG # 0.02 10e3/ul Normal 0.00-0.03 [facility] Comment on above: Performed By: #### C BC #### [facility] [address] [place] [address] Dr. Elaina Garnett IG % 0.2 % Normal 0.0-0.5 [facility] Comment on above: Performed By: #### C BC #### [facility] [address] [place] [address] Dr. Elaina Garnett LYMPH # 2.0 103/ul Normal 1.2-3.8 [facility] Comment on above: Performed By: #### C BC #### [facility] [address] [place] [address] Dr. Elaina Garnett Lymphocytes/100 WBC (Bld) 23.4 % Normal 20.5-60.0 [facility] Comment on above: Performed By: #### C BC #### [facility] [address] [place] [address] Dr. Elaina Garnett MANUAL DIFF REQ NO Normal [facility] Comment on above: Performed By: #### C BC #### [facility] [address] [place] [address] Dr. Elaina Garnett MCH (RBC) [Entitic mass] 29.8 pg Normal 26.7-34.0 [facility] Comment on above: Performed By: #### C BC #### [facility] [address] [place] [address] Dr. Elaina Garnett MCHC (RBC) [Mass/Vol] 33.4 g/dL Normal 29.9-35.2 [facility] Comment on above: Performed By: #### C BC #### [facility] [address] [place] [address] Dr. Elaina Garnett MCV (RBC) [Entitic vol] 89.2 fL Normal 81.0-99.0 [facility] Comment on above: Performed By: #### C BC #### [facility] [address] [place] [address] Dr. Elaina Garnett MONO # 1.1 103/ul Critically high 0.3-0.8 [facility] Comment on above: Performed By: #### C BC #### [facility] [address] [place] [address] Dr. Elaina Garnett Monocytes/100 WBC (Bld) 12.1 % Critically high 1.7-12. 0 [facility] Comment on above: Performed By: #### C BC #### [facility] [address] [place] [address] Dr. Elaina Garnett NEUT # 5.4 103/ul Normal 1.4-6.5 [facility] Comment on above: Performed By: #### C BC #### [facility] [address] [place] [address] Dr. Elaina Garnett Neutrophils/100 WBC (Bld) 61.6 % Normal 43.0-75.0 [facility] Comment on above: Performed By: #### C BC #### [facility] [address] [place] [address] Dr. Elaina Garnett Platelet mean volume (Bld) [Entitic vol] 10.2 fL Normal 9.5-13.5 [facility] Comment on above: Performed By: #### C BC #### [facility] [address] [place] [address] Dr. Elaina Garnett PLT 202 103/ul Normal 150-450 [facility] Comment on above: Performed By: #### C BC #### [facility] [address] [place] [address] Dr. Elaina Garnett RBC 4.16 106/ul Critically low 4.20-5.40 [facility] Comment on above: Performed By: #### C BC #### [facility] [address] [place] [address] Dr. Elaina Garnett WBC 8.7 103/ul Normal 4.0-11.0 [facility] Comment on above: Performed By: #### C BC #### [facility] [address] [place] [address] Dr. Elaina Garnett POINT OF CARE GLUCOSEon 10-27 Glucose [Mass/Vol] 183 mg/dL Critically high 74-106 [facility] Comment on above: Performed By: #### C MP #### [facility] [address] [place] [address] Dr. Elaina Garnett PROF 14(COMP METB)on 022 Albumin [Mass/Vol] 3.0 g/dL Critically low 3.4-5.0 [facility] Comment on above: Performed By: #### C MP #### [facility] [address] [place] [address] Dr. Elaina Garnett Albumin/Globulin [Mass ratio] 0.8 {ratio} Normal [facility] Comment on above: Performed By: #### C MP #### [facility] [address] [place] [address] Dr. Elaina Garnett ALP [Catalytic activity/Vol] 81 U/L Normal 46-116 [facility] Comment on above: Performed By: #### C MP #### [facility] [address] [place] [address] Dr. Elaina Garnett ALT [Catalytic activity/Vol] 13 U/L Critically low 14-59 [facility] Comment on above: Performed By: #### C MP #### [facility] [address] [place] [address] Dr. Elaina Garnett Anion gap [Moles/Vol] 13.0 mmol/L Normal [facility] Comment on above: Performed By: #### C MP #### [facility] [address] [place] [address] Dr. Ealina Garnett AST [Catalytic activity/Vol] 17 U/L Normal 15-37 [facility] Comment on above: Performed By: #### C MP #### [facility] [address] [place] [address] Dr. Elaina Garnett Bilirubin [Mass/Vol] 0.5 mg/dL Normal 0.2-1.0 [facility] Comment on above: Performed By: #### C MP #### [facility] [address] [place] [address] Dr. Elaina Garnett Calcium [Mass/Vol] 8.3 mg/dL Critically low 8.5-10.1 [facility] Comment on above: Performed By: #### C MP #### [facility] [address] [address] [address] Elaina Garnett Chloride [Moles/Vol] 106 mmol/L Normal 98-107 [facility] Comment on above: Performed By: #### C MP #### [facility] [address] [address] [address] Elaina Garnett CO2 [Moles/Vol] 24.4 mmol/L Normal 21.0-32.0 [facility] Comment on above: Performed By: #### C MP #### [facility] [address] [address] [address] Elaina Garnett Creatinine [Mass/Vol] 2.13 mg/dL Critically high 0.55-1.02 [facility] Comment on above: Performed By: #### C MP #### [facility] [address] [address] [address] Elaina Garnett EGFR-AF [place]ER 27 mL/min/1.73m2 Critically low >=60 [facility] Comment on above: Performed By: #### C MP #### [facility] [address] [address] [address] Elaina Garnett EGFR-NON AF [place] 22 mL/min/1.73m2 Critically low >=60 [facility] Comment on above: Performed By: #### C MP #### [facility] [address] [address] [address] Elaina Garnett Globulin (S) [Mass/Vol] 3.6 g/dL Normal [facility] Comment on above: Performed By: #### C MP #### [facility] [address] [address] [address] Elaina Garnett Glucose [Mass/Vol] 209 mg/dL Critically high 74-106 [facility] Comment on above: Performed By: #### C MP #### [facility] [address] [address] [address] Elaina Garnett Potassium [Moles/Vol] 4.4 mmol/L Normal 3.5-5.1 [facility] Comment on above: Performed By: #### C MP #### [facility] [address] [address] [address] Elaina Garnett Protein [Mass/Vol] 6.6 g/dL Normal 6.4-8.2 [facility] Comment on above: Performed By: #### C MP #### [facility] [address] [address] [address] Elaina Garnett Sodium [Moles/Vol] 139 mmol/L Normal 136-145 [facility] Comment on above: Performed By: #### C MP #### [facility] [address] [address] [address] Elaina Garnett Urea nitrogen [Mass/Vol] 101.0 mg/dL Critically high 7.0-18.0 [facility] Comment on above: Performed By: #### C MP #### [facility] Laboratory [address] [place] [address] Dr. Elaina Garnett Urea nitrogen/Creatinine [Mass ratio] 47.4 mg/mg Normal [facility] Comment on above: Performed By: #### C MP #### [facility] [address] [address] [address] Elaina Garnett UA (CLEAN/CATCH) CUSTOMER SUPPORT MANAGER/MICRO I F IND.on 11-05-2022 Bilirubin Ql (U) Negative Normal NEGATIVE [facility] Comment on above: Performed By: #### R SPLUS #### [facility] [address] [place] [address] Dr. Elaina Garnett Clarity (U) CLEAR Normal CLEAR [facility] Comment on above: Performed By: #### R SPLUS #### [facility] [address] [address] [address] Elaina Garnett Color (U) LT. YELLOW Normal YELLOW [facility] Comment on above: Performed By: #### R SPLUS #### [facility] [address] [place] [address] Dr. Elaina Garnett Glucose Ql (U) Negative Normal NEGATIVE [facility] Comment on above: Performed By: #### R SPLUS #### [facility] [address] [address] [address] Elaina Garnett Hemoglobin Ql (U) Negative Normal NEGATIVE [facility] Comment on above: Performed By: #### R SPLUS #### [facility] [address] [place] [address] Dr. Elaina Garnett Ketones Ql (U) Negative Normal NEGATIVE [facility] Comment on above: Performed By: #### R SPLUS #### [facility] [address] [place] [address] Dr. Elaina Garnett LEUKOCYTES Negative Normal NEGATIVE [facility] Comment on above: Performed By: #### R SPLUS #### [facility] [address] [place] [address] Dr. Elaina Garnett Nitrite Ql (U) Negative Normal NEGATIVE [facility] Comment on above: Performed By: #### R SPLUS #### [facility] [address] [place] [address] Dr. Elaina Garnett pH (U) 5.5 [pH] Normal 5-9 [facility] Comment on above: Performed By: #### R SPLUS #### [facility] [address] [place] [address] Dr. Elaina Garnett SPEC GRAVITY 1.010 Normal 1.005-<=1.025 [facility] Comment on above: Performed By: #### R SPLUS #### [facility] [address] [place] [address] Dr. Elaina Garnett UA PROTEIN Negative Normal NEGATIVE/ TRACE [facility] Comment on above: Performed By: #### R SPLUS #### [facility] [address] [place] [address] Dr. Elaina Garnett UR MICRO IND NOT INDICATED Normal [facility] Comment on above: Performed By: #### R SPLUS #### [facility] [address] [place] [address] Dr. Elaina Garnett Urobilinogen Qn (U) 0.2 {Danny'U}/dL Normal 0.2 - 1. 0 [facility] Comment on above: Performed By: #### R SPLUS #### [facility] [address] [address] [address] Elaina Garnett BLOOD GASES BTYon 11-04-2022 ALLENS TEST Positive [facility] Comment on above: Result Comment: TEST NOT PERFORMED- RESULTED IN ERROR Previously reported as: POSITIVE On 11/04/2022 17:32 By LM4 Performed By: #### C BC #### [facility] [address] [address] [address] Elaina Garnett BIPAP PRESSURE [facility] Comment on above: Performed By: #### C BC #### [facility] [address] [address] [address] Elaina Garnett CPAP [facility] Comment on above: Performed By: #### C BC #### [facility] [address] [address] [address] Elaina Garnett FIO2 [facility] Comment on above: Performed By: #### C BC #### [facility] [address] [address] [address] Elaina Garnett LPM [facility] Comment on above: Performed By: #### C BC #### [facility] [address] [address] [address] Elaina Garnett MINUTE VOLUME [facility] Comment on above: Performed By: #### C BC #### [facility] [address] [address] [address] Elaina Garnett PEEP [facility] Comment on above: Performed By: #### C BC #### [facility] [address] [address] [address] Elaina Garnett PIP [facility] Comment on above: Performed By: #### C BC #### [facility] [address] [address] [address] Elaina Garnett PS [facility] Comment on above: Performed By: #### C BC #### [facility] [address] [address] [address] Elaina Garnett RATE [facility] Comment on above: Performed By: #### C BC #### [facility] [address] [address] [address] Elaina Garnett [place] Normal [facility] Comment on above: Performed By: #### C BC #### [facility] [address] [place] [address] Dr. Elaina Garnett [facility] Comment on above: Performed By: #### C BC #### [facility] [address] [place] [address] Dr. Elaina Garnett BNPon 11-04-2022 Natriuretic peptide B (Bld) [Mass/Vol] 356.0 pg/mL Normal <=1,800.0 [facility] Comment on above: Performed By: #### C BC #### [facility] [address] [place] [address] Dr. Elaina Garnett BUNon 11-04-2022 Urea nitrogen [Mass/Vol] 112.0 mg/dL Critically high 7.0-18.0 [facility] Comment on above: Performed By: #### B UN #### [facility] [address] [place] [address] Dr. Elaina Garnett CARDIAC MIKE 3-6on 2 CK [Catalytic activity/Vol] 100 U/L Normal 26-192 [facility] Comment on above: Performed By: #### C MREP #### [facility] [address] [place] [address] Dr. Elaina Garnett CK.MB [Mass/Vol] 2.57 ng/mL Normal <=3.60 [facility] Comment on above: Performed By: #### C MREP #### [facility] [address] [place] [address] Dr. Elaina Garnett HSTROP 7.3 pg/mL Normal 4.0-51.3 [facility] Comment on above: Result Comment: CUT- OFF POINTS HAVE BEEN ESTABLISHED BASED ON THE FOURTH UNIVERSAL DEFINITIONS OF MYOCARDIAL INFARCTION. THE UPPER REFERENCE LIMIT (URL) OF TROPONIN, DEFINED THE 99TH PERCENTILE OF cTnI DISTRIBUTION IN A REFERENCE POPULATION, HAS BEEN CONFIRMED THE DECISION THRESHOLD FOR ND DIAGNOSIS. Performed By: #### C MREP #### [facility] [address] [place] [address] Dr. Elaina Garnett CARDIAC MIKE ADMITon 022 CK [Catalytic activity/Vol] 97 U/L Normal 26-192 [facility] Comment on above: Performed By: #### C BC #### [facility] [address] [place] [address] Dr. Elaina Garnett CK.MB [Mass/Vol] 2.35 ng/mL Normal <=3.60 [facility] Comment on above: Performed By: #### C BC #### [facility] [address] [place] [address] Dr. Elaina Garnett HSTROP 7.8 pg/mL Normal 4.0-51.3 [facility] Comment on above: Result Comment: CUT- OFF POINTS HAVE BEEN ESTABLISHED BASED ON THE FOURTH UNIVERSAL DEFINITIONS OF MYOCARDIAL INFARCTION. THE UPPER REFERENCE LIMIT (URL) OF TROPONIN, DEFINED THE 99TH PERCENTILE OF cTnI DISTRIBUTION IN A REFERENCE POPULATION, HAS BEEN CONFIRMED THE DECISION THRESHOLD FOR ND DIAGNOSIS. Performed By: #### C BC #### [facility] [address] [place] [address] Dr. Elaina Garnett TAO 155 ng/mL Critically high 9-82 [facility] Comment on above: Performed By: #### C BC #### [facility] [address] [place] [address] Dr. Elaina Garnett CBC AUTO DIFFon 11-04-2022 BASO # 0.1 103/ul Normal 0.0-0.1 [facility] Comment on above: Performed By: #### R SPLUS #### [facility] [address] [place] [address] Dr. Elaina Garnett Basophils/100 WBC (Bld) 1.0 % Normal 0.2-2.0 [facility] Comment on above: Performed By: #### R SPLUS #### [facility] [address] [place] [address] Dr. Elaina Garnett EO # 0.3 103/ul Normal 0.0-0.7 [facility] Comment on above: Performed By: #### R SPLUS #### [facility] [address] [place] [address] Dr. Elaina Garnett Eosinophils/100 WBC (Bld) 3.2 % Normal 0.9-7.0 [facility] Comment on above: Performed By: #### R SPLUS #### [facility] [address] [place] [address] Dr. Elaina Garnett Erythrocyte distribution width (RBC) [Ratio] 13.2 % Normal 11.0-15.0 [facility] Comment on above: Performed By: #### R SPLUS #### [facility] [address] [place] [address] Dr. Elaina Garnett Hematocrit (Bld) [Volume fraction] 42.5 % Normal 36.0-48.0 [facility] Comment on above: Performed By: #### R SPLUS #### [facility] [address] [place] [address] Dr. Elaina Garnett Hemoglobin (Bld) [Mass/Vol] 14.3 g/dL Normal 12.0-16.0 [facility] Comment on above: Performed By: #### R SPLUS #### [facility] [address] [place] [address] Dr. Elaina Garnett IG # 0.03 10e3/ul Normal 0.00-0.03 [facility] Comment on above: Performed By: #### R SPLUS #### [facility] [address] [place] [address] Dr. Elaina Garnett IG % 0.3 % Normal 0.0-0.5 [facility] Comment on above: Performed By: #### R SPLUS #### [facility] [address] [place] [address] Dr. Elaina Garnett LYMPH # 3.2 103/ul Normal 1.2-3.8 [facility] Comment on above: Performed By: #### R SPLUS #### [facility] [address] [place] [address] Dr. Elaina Garnett Lymphocytes/100 WBC (Bld) 32.2 % Normal 20.5-60.0 [facility] Comment on above: Performed By: #### R SPLUS #### [facility] [address] [place] [address] Dr. Elaina Garnett MANUAL DIFF REQ NO Normal [facility] Comment on above: Performed By: #### R SPLUS #### [facility] [address] [place] [address] Dr. Elaina Garnett MCH (RBC) [Entitic mass] 29.5 pg Normal 26.7-34.0 [facility] Comment on above: Performed By: #### R SPLUS #### [facility] [address] [place] [address] Dr. Elaina Garnett MCHC (RBC) [Mass/Vol] 33.6 g/dL Normal 29.9-35.2 [facility] Comment on above: Performed By: #### R SPLUS #### [facility] [address] [place] [address] Dr. Elaina Garnett MCV (RBC) [Entitic vol] 87.8 fL Normal 81.0-99.0 [facility] Comment on above: Performed By: #### R SPLUS #### [facility] [address] [place] [address] Dr. Elaina Garnett MONO # 1.5 103/ul Critically high 0.3-0.8 [facility] Comment on above: Performed By: #### R SPLUS #### [facility] [address] [place] [address] Dr. Elaina Garnett Monocytes/100 WBC (Bld) 14.5 % Critically high 1.7-12. 0 [facility] Comment on above: Performed By: #### R SPLUS #### [facility] [address] [place] [address] Dr. Elaina Garnett NEUT # 4.9 103/ul Normal 1.4-6.5 [facility] Comment on above: Performed By: #### R SPLUS #### [facility] [address] [place] [address] Dr. Elaina Garnett Neutrophils/100 WBC (Bld) 48.8 % Normal 43.0-75.0 [facility] Comment on above: Performed By: #### R SPLUS #### [facility] [address] [place] [address] Dr. Elaina Garnett Platelet mean volume (Bld) [Entitic vol] 9.8 fL Normal 9.5-13.5 [facility] Comment on above: Performed By: #### R SPLUS #### [facility] [address] [place] [address] Dr. Elaina Garnett PLT 277 103/ul Normal 150-450 [facility] Comment on above: Performed By: #### R SPLUS #### [facility] [address] [address] [address] Elaina Garnett RBC 4.84 106/ul Normal 4.20-5.40 [facility] Comment on above: Performed By: #### R SPLUS #### [facility] [address] [place] [address] Dr. Elaina Garnett WBC 10.0 103/ul Normal 4.0-11.0 [facility] Comment on above: Performed By: #### R SPLUS #### [facility] [address] [place] [address] HEAD WO CONon [...] JUAN GARRETT Date: 2022-11-04 17:14 Normal [facility]on SARS-CoV-2 (COVID-19) RNA BARB+probe Ql (Unsp spec) Not detected Normal NOT DETECTED [facility] Comment on above: Result Comment: When [...] for this test is supported by the [place] of [employer] and Human Service's declaration that [...] used). Performed By: #### R SPLUS #### [facility] [address] [place] [address] Dr. Elaina Garnett INFLUENZA A AND B AGon 11-04 [facility] SEE BELOW Normal [facility] Comment on above: Result Comment: Nega tive for Flu A protein angiten. Infection due to Flu A cannot be ruled out. Flu A angiten in the sample may be below the detection limit of the test. Performed By: #### C BC #### [facility] [address] [place] [address] Dr. Elain[facility] Garn[facility] SEE BELOW Normal [facility] Comment on above: Result Comment: Nega tive for Flu B protein antigen. Infection due to Flu B cannot be ruled out. Flu B antigen in the sample may be below the detection limit of the test. Performed By: #### C BC #### [facility] [address] [place] [address] Dr. Elaina Garnett INFLUENZA A AG Negative Normal NEGATIVE SEE COMMENT [facility] Comment on above: Performed By: #### C BC #### [facility] [address] [place] [address] Dr. Elaina Garnett INFLUENZA B AG Negative Normal NEGATIVE SEE COMMENT [facility] Comment on above: Performed By: #### C BC #### [facility] [address] [place] [address] Dr. Elaina Garnett INTERNAL CONTROLS Within Normal Limits Normal Wi thin Normal Limits [facility] Comment on above: Performed By: #### C BC #### [facility] [address] [address] [address] Elaina Garnett LIPASEon 11-04-2022 Lipase [Catalytic activity/Vol] 163.0 U/L Normal 73.0-393.0 [facility] Comment on above: Performed By: #### C BC #### [facility] [address] [place] [address] Dr. Elaina Garnett POINT OF CARE GLUCOSEon Glucose [Mass/Vol] 246 mg/dL Critically high -106 [facility] Comment on above: Performed By: #### P OCGLUC #### [facility] [address] [place] [address] Dr. Elaina Garnett Glucose [Mass/Vol] 224 mg/dL Critically high [facility]106 [facility] Comment on above: Performed By: #### P OCGLUC #### [facility] [address] [place] [address] Dr. Elaina Garnett Glucose [Mass/Vol] 113 mg/dL Critically high [facility]106 [facility] Comment on above: Performed By: #### C BC #### [facility] [address] [place] [address] Dr. Elaina Garnett Glucose [Mass/Vol] 47 mg/dL Critically low -106 [facility] Comment on above: Result Comment: DR Lizeth KAM Performed By: #### P OCGLUC #### [facility] [address] [place] [address] Dr. Elaina Garnett Glucose [Mass/Vol] 127 mg/dL Critically high -106 [facility] Comment on above: Performed By: #### C BC #### [facility] [address] [place] [address] Dr. Elaina Garnett PROF 14(COMP METB)on 022 Albumin [Mass/Vol] 4.1 g/dL Normal 3.4-5.0 [facility] Comment on above: Performed By: #### C BC #### [facility] [address] [place] [address] Dr. Elaina Garnett Albumin/Globulin [Mass ratio] 0.9 {ratio} Normal [facility] Comment on above: Performed By: #### C BC #### [facility] [address] [place] [address] Dr. Elaina Garnett ALP [Catalytic activity/Vol] 105 U/L Normal 46-116 [facility] Comment on above: Performed By: #### C BC #### [facility] [address] [place] [address] Dr. Elaina Garnett ALT [Catalytic activity/Vol] 19 U/L Normal 14-59 [facility] Comment on above: Performed By: #### C BC #### [facility] [address] [place] [address] Dr. Elaina Garnett Anion gap [Moles/Vol] 14.1 mmol/L Normal [facility] Comment on above: Performed By: #### C BC #### [facility] [address] [place] [address] Dr. Elaina Garnett AST [Catalytic activity/Vol] 20 U/L Normal 15-37 [facility] Comment on above: Performed By: #### C BC #### [facility] [address] [place] [address] Dr. Elaina Garnett Bilirubin [Mass/Vol] 0.6 mg/dL Normal 0.2-1.0 [facility] Comment on above: Performed By: #### C BC #### [facility] [address] [place] [address] Dr. Elaina Garnett Calcium [Mass/Vol] 9.8 mg/dL Normal 8.5-10.1 [facility] Comment on above: Performed By: #### C BC #### [facility] [address] [place] [address] Dr. Elaina Garnett Chloride [Moles/Vol] 102 mmol/L Normal 98-107 [facility] Comment on above: Performed By: #### C BC #### [facility] [address] [place] [address] Dr. Elaina Garnett CO2 [Moles/Vol] 27.7 mmol/L Normal 21.0-32.0 [facility] Comment on above: Performed By: #### C BC #### [facility] [address] [address] [address] Elaina Garnett Creatinine [Mass/Vol] 2.25 mg/dL Critically high 0.55-1.02 [facility] Comment on above: Performed By: #### C BC #### [facility] [address] [address] [address] Elaina Garnett EGFR-AF [place] 25 mL/min/1.73m2 Critically low >=60 [facility] Comment on above: Performed By: #### C BC #### [facility] [address] [address] [address] Elaina Garnett EGFR-NON AF [place] 21 mL/min/1.73m2 Critically low >=60 [facility] Comment on above: Performed By: #### C BC #### [facility] [address] [address] [address] Elaina Garnett Globulin (S) [Mass/Vol] 4.6 g/dL Normal [facility] Comment on above: Performed By: #### C BC #### [facility] [address] [address] [address] Elaina Garnett Glucose [Mass/Vol] 27 mg/dL Critically low 74-106 [facility] Comment on above: Performed By: #### C BC #### [facility] [address] [address] [address] Elaina Garnett Potassium [Moles/Vol] 3.8 mmol/L Normal 3.5-5.1 [facility] Comment on above: Performed By: #### C BC #### [facility] [address] [address] [address] Elaina Garnett Protein [Mass/Vol] 8.7 g/dL Critically high 6.4-8.2 [facility] Comment on above: Performed By: #### C BC #### [facility] [address] [address] [address] Elaina Garnett Sodium [Moles/Vol] 140 mmol/L Normal 136-145 [facility] Comment on above: Performed By: #### C BC #### [facility] [address] [address] [address] Elaina Garnett Urea nitrogen [Mass/Vol] 117.0 mg/dL Critically high 7.0-18.0 [facility] Comment on above: Performed By: #### C BC #### [facility] [address] [place] [address] Dr. Elaina Garnett Urea nitrogen/Creatinine [Mass ratio] 52.0 mg/mg Normal [facility] Comment on above: Performed By: #### C BC #### [facility] [address] [place] [address] Dr. Elaina Garnett PROTIMEon 11-04-2022 INR Coag (PPP) [Relative time] 1.00 {INR} Normal [facility] Comment on above: Performed By: #### C BC #### [facility] [address] [place] [address] Dr. Elaina Garnett INR GUIDELINES SEE BELOW Normal [facility] Comment on above: Result Comment: HOA RED INR: 2.0 - 3.0 CONDITIONS NOT LISTED BELOW 2.5 - 3.5 FOR PROSTHETIC HEART VALVE REPLACEMENT 2.5 - 3.5 RECURRENT THROMBOSIS Performed By: #### C BC #### [facility] [address] [place] [address] Dr. Elaina Garnett PT Coag (PPP) [Time] 10.8 s Normal 9.0-11.6 [facility] Comment on above: Performed By: #### C BC #### [facility] [address] [place] [address] Dr. Elaina Garnett PTTon 11-04-2022 aPTT Coag (Bld) [Time] 28.5 s Normal 22.3-36.2 [facility] Comment on above: Performed By: #### C BC #### [facility] [address] [place] [address] Dr. Elaina Garnett XR CHEST 1 Von [...] ELLEN AVALOS Date: 2022-11-04 16:54 Normal [facility] BNPon 09-14-2022 Natriuretic peptide B (Bld) [Mass/Vol] 685.0 pg/mL Normal <=1,800.0 [facility] Comment on above: Performed By: #### C MP #### [facility] [address] [place] [address] Dr. Elaina Garnett BUNon 09-14-2022 Urea nitrogen [Mass/Vol] 67.0 mg/dL Critically high 7.0-18.0 [facility] Comment on above: Performed By: #### C MP #### [facility] [address] [place] [address] Dr. Elaina Garnett CBC AUTO DIFFon 09-14-2022 BASO # 0.1 103/ul Normal 0.0-0.1 [facility] Comment on above: Performed By: #### C BC #### [facility] [address] [place] [address] Dr. Elaina Garnett Basophils/100 WBC (Bld) 1.1 % Normal 0.2-2.0 [facility] Comment on above: Performed By: #### C BC #### [facility] [address] [place] [address] Dr. Elaina Garnett EO # 0.3 103/ul Normal 0.0-0.7 [facility] Comment on above: Performed By: #### C BC #### [facility] [address] [place] [address] Dr. Elaina Garnett Eosinophils/100 WBC (Bld) 3.6 % Normal 0.9-7.0 [facility] Comment on above: Performed By: #### C BC #### [facility] [address] [place] [address] Dr. Elaina Garnett Erythrocyte distribution width (RBC) [Ratio] 13.8 % Normal 11.0-15.0 [facility] Comment on above: Performed By: #### C BC #### [facility] [address] [place] [address] Dr. Elaina Garnett Hematocrit (Bld) [Volume fraction] 40.7 % Normal 36.0-48.0 [facility] Comment on above: Performed By: #### C BC #### [facility] [address] [place] [address] Dr. Elaina Garnett Hemoglobin (Bld) [Mass/Vol] 13.4 g/dL Normal 12.0-16.0 [facility] Comment on above: Performed By: #### C BC #### [facility] [address] [place] [address] Dr. Elaina Garnett IG # 0.02 10e3/ul Normal 0.00-0.03 [facility] Comment on above: Performed By: #### C BC #### [facility] [address] [place] [address] Dr. Elaina Garnett IG % 0.2 % Normal 0.0-0.5 [facility] Comment on above: Performed By: #### C BC #### [facility] [address] [place] [address] Dr. Elaina Garnett LYMPH # 2.2 103/ul Normal 1.2-3.8 [facility] Comment on above: Performed By: #### C BC #### [facility] [address] [place] [address] Dr. Elaina Garnett Lymphocytes/100 WBC (Bld) 26.0 % Normal 20.5-60.0 [facility] Comment on above: Performed By: #### C BC #### [facility] [address] [place] [address] Dr. Elaina Garnett MANUAL DIFF REQ NO Normal [facility] Comment on above: Performed By: #### C BC #### [facility] [address] [place] [address] Dr. Elaina Garnett MCH (RBC) [Entitic mass] 30.7 pg Normal 26.7-34.0 [facility] Comment on above: Performed By: #### C BC #### [facility] [address] [address] [address] Elaina Garnett MCHC (RBC) [Mass/Vol] 32.9 g/dL Normal 29.9-35.2 [facility] Comment on above: Performed By: #### C BC #### [facility] [address] [address] [address] Elaina Garnett MCV (RBC) [Entitic vol] 93.3 fL Normal 81.0-99.0 [facility] Comment on above: Performed By: #### C BC #### [facility] [address] [address] [address] Elaina Garnett MONO # 1.0 103/ul Critically high 0.3-0.8 [facility] Comment on above: Performed By: #### C BC #### [facility] [address] [address] [address] Elaina Garnett Monocytes/100 WBC (Bld) 12.4 % Critically high 1.7-12. 0 [facility] Comment on above: Performed By: #### C BC #### [facility] [address] [address] [address] Elaina Garnett NEUT # 4.7 103/ul Normal 1.4-6.5 [facility] Comment on above: Performed By: #### C BC #### [facility] [address] [address] [address] Elaina Garnett Neutrophils/100 WBC (Bld) 56.7 % Normal 43.0-75.0 [facility] Comment on above: Performed By: #### C BC #### [facility] [address] [address] [address] Elaina Garnett Platelet mean volume (Bld) [Entitic vol] 9.7 fL Normal 9.5-13.5 [facility] Comment on above: Performed By: #### C BC #### [facility] [address] [address] [address] Elaina Garnett PLT 230 103/ul Normal 150-450 [facility] Comment on above: Performed By: #### C BC #### [facility] [address] [address] [address] Elaina Garnett RBC 4.36 106/ul Normal 4.20-5.40 [facility] Comment on above: Performed By: #### C BC #### [facility] [address] [address] [address] Elaina Garnett WBC 8.3 103/ul Normal 4.0-11.0 [facility] Comment on above: Performed By: #### C BC #### [facility] [address] [address] [address] Elaina Garnett CREATININEon 09-14-2022 Creatinine [Mass/Vol] 1.93 mg/dL Critically high 0.55-1.02 [facility] Comment on above: Performed By: #### C MP #### [facility] [address] [place] [address] Dr. Elaina Garnett EGFR-AF [place]ER 30 mL/min/1.73m2 Critically low >=60 [facility] Comment on above: Performed By: #### C MP #### [facility] [address] [place] [address] Dr. Elaina Garnett EGFR-NON AF [place] 25 mL/min/1.73m2 Critically low >=60 [facility] Comment on above: Performed By: #### C MP #### [facility] [address] [place] [address] Dr. Elaina Garnett ELECTROLYTESon 09-14-2022 Anion gap [Moles/Vol] 13.1 mmol/L Normal [facility] Comment on above: Performed By: #### C MP #### [facility] [address] [place] [address] Dr. Elaina Garnett Chloride [Moles/Vol] 103 mmol/L Normal 98-107 [facility] Comment on above: Performed By: #### C MP #### [facility] [address] [place] [address] Dr. Elaina Garnett CO2 [Moles/Vol] 25.5 mmol/L Normal 21.0-32.0 [facility] Comment on above: Performed By: #### C MP #### [facility] [address] [address] [address] Elaina Garnett Potassium [Moles/Vol] 4.6 mmol/L Normal 3.5-5.1 [facility] Comment on above: Performed By: #### C MP #### [facility] [address] [address] [address] Elaina Garnett Sodium [Moles/Vol] 137 mmol/L Normal 136-145 [facility] Comment on above: Performed By: #### C MP #### [facility] [address] [address] [address] Elaina Garnett GLYCOHEMOGLOBIN A1Con 2021 ADA RECOMMENDATION SEE BELOW Normal [facility] Comment on above: Result Comment: ADA RECOMMENDED LIMIT 4.0 - 6.0 ADA THERAPEUTIC TARGET < 7.0 ACTION SUGGESTED > 7.0 Performed By: #### R SPLUS #### [facility] [address] [address] [address] Elaina Garnett Glucose [Mass/Vol] 209 mg/dL Normal [facility] Comment on above: Performed By: #### R SPLUS #### [facility] [address] [address] [address] Elaina Garnett HbA1c (Bld) [Mass fraction] 8.9 % Critically high 4.5-6.2 [facility] Comment on above: Performed By: #### R SPLUS #### [facility] [address] [address] [address] Elaina Garnett LIPID PROFILEon 09-14-2022 CHOL-HDL RATIO NORM SEE BELOW Normal [facility] Comment on above: Result Comment: 3.3 - 4.4 LOW RISK 4.4 - 7.1 AVERAGE RISK 7.1 - 11.0 MODERATE RISK >11.0 HIGH RISK Performed By: #### C MP #### [facility] [address] [address] [address] Elaina Garnett Cholesterol [Mass/Vol] 135 mg/dL Normal <=200 [facility] Comment on above: Performed By: #### C MP #### [facility] [address] [address] [address] Elaina Garnett Cholesterol in HDL [Mass/Vol] 39 mg/dL Critically low 40-60 [facility] Comment on above: Performed By: #### C MP #### [facility] [address] [place], [place] [address] Dr. Elaina Garnett Cholesterol in LDL [Mass/Vol] 67.4 mg/dL Normal [facility] Comment on above: Performed By: #### C MP #### [facility] [address] [address] [address] Elaina Garnett Cholesterol.total/Farheen sterol in HDL [Mass ratio] 3.5 {ratio} Normal [facility] Comment on above: Performed By: #### C MP #### [facility] [address] [address] [address] Elaina Garnett HDL NORMAL > or = 60 mg/dl - LOW CARDIOVASCULAR RISK <40 mg/dl - HIGH CARDIOVASCULAR RISK Normal [facility] Comment on above: Performed By: #### C MP #### [facility] [address] [address] [address] Elaina Garnett LDL CALC NORMAL SEE BELOW Normal [facility] Comment on above: Result Comment: <100 mg/dl OPTIMAL 100 - 129 mg/dl NEAR OR ABOVE OPTIMAL 130 - 159 mg/dl BORDERLINE HIGH 160 - 189 mg/dl HIGH >190 mg/dl VERY HIGH Performed By: #### C MP #### [facility] [address] [address] [address] Elaina Garnett Triglyceride [Mass/Vol] 143 mg/dL Normal <=150 T [facility] Comment on above: Performed By: #### C MP #### [facility] [address] [address] [address] Elaina Garnett VLDL CALC 28.6 mg/dL Normal [facility] Comment on above: Performed By: #### C MP #### [facility] [address] [address] [address] Elaina Garnett LIVER PROFILEon 09-14-2022 Albumin [Mass/Vol] 3.4 g/dL Normal 3.4-5.0 [facility] Comment on above: Performed By: #### C MP #### [facility] [address] [address] [address] Elaina Garnett Albumin/Globulin [Mass ratio] 0.8 {ratio} Normal [facility] Comment on above: Performed By: #### C MP #### [facility] [address] [address] [address] Elaina Garnett ALP [Catalytic activity/Vol] 122 U/L Critically high 46-116 [facility] Comment on above: Performed By: #### C MP #### [facility] [address] [address] [address] Elaina Garnett ALT [Catalytic activity/Vol] 17 U/L Normal 14-59 [facility] Comment on above: Performed By: #### C MP #### [facility] [address] [place] [address] Dr. Elaina Garnett AST [Catalytic activity/Vol] 15 U/L Normal 15-37 [facility] Comment on above: Performed By: #### C MP #### [facility] [address] [place] [address] Dr. Elaina Garnett BILI, CONJUGATED 0.1 mg/dL Normal 0.0-0.2 [facility] Comment on above: Performed By: #### C MP #### [facility] [address] [place] [address] Dr. Elaina Garnett Bilirubin [Mass/Vol] 0.6 mg/dL Normal 0.2-1.0 [facility] Comment on above: Performed By: #### C MP #### [facility] [address] [place] [address] Dr. Elaina Garnett Globulin (S) [Mass/Vol] 4.1 g/dL Normal T [facility] Comment on above: Performed By: #### C MP #### [facility] [address] [place] [address] Dr. Elaina Garnett Protein [Mass/Vol] 7.5 g/dL Normal 6.4-8.2 [facility] Comment on above: Performed By: #### C MP #### [facility] [address] [address] [address] Elaina Garnett TSHon 09-14-2022 TSH 1.535 uIU/mL Normal 0.358-3.740 [facility] Comment on above: Performed By: #### C MP #### [facility] [address] [address] [address] Elaina Garnett MG MAMM SCREEN 3D PEDRO CADon 09-13-2022 MG MAMM SCREEN 3D PEDRO CAD Patient: VARSHA CHAUDHRY Exam Date: 09/13/2022 : 1945 Gender:F Ordering : DR SHAWN STOUT Admission #: [id number] Family : Order #: [id number] CLICK HERE TO VIEW EXAM RADIOLOGY REPORT [...] RADIATION TREATMENTS Family Cancers None LOCATION: [facility] BREAST COMPOSITION: Scattered areas fibroglandular density. [...] M.D. on 09/14/2022 at 14:11 Normal [facility] RENAL FUNCTION PANELon 05-17 Albumin [Mass/Vol] 3.5 g/dL Normal 3.4-5.0 [facility] Comment on above: Performed By: #### C MP #### [facility] [address] [address] [address] Elaina Garnett Calcium [Mass/Vol] 8.8 mg/dL Normal 8.5-10.1 [facility] Comment on above: Performed By: #### C MP #### [facility] [address] [address] [address] Elaina Garnett Chloride [Moles/Vol] 106 mmol/L Normal 98-107 [facility] Comment on above: Performed By: #### C MP #### [facility] [address] [address] [address] Elaina Garnett CO2 [Moles/Vol] 29.1 mmol/L Normal 21.0-32.0 [facility] Comment on above: Performed By: #### C MP #### [facility] [address] [place] [address] Dr. Elaina Garnett Creatinine [Mass/Vol] 2.04 mg/dL Critically high 0.55-1.02 [facility] Comment on above: Performed By: #### C MP #### [facility] [address] [place] [address] Dr. Elaina Garnett EGFR-AF [place]ER 29 mL/min/1.73m2 Critically low >=60 [facility] Comment on above: Performed By: #### C MP #### [facility] [address] [place] [address] Dr. Elaina Garnett EGFR-NON AF [place] 24 mL/min/1.73m2 Critically low >=60 [facility] Comment on above: Performed By: #### C MP #### [facility] [address] [place] [address] Dr. Elaina Garnett Glucose [Mass/Vol] 46 mg/dL Critically low 74-106 [facility] Comment on above: Performed By: #### C MP #### [facility] [address] [address] [address] Elaina Garnett Phosphate [Mass/Vol] 4.2 mg/dL Normal 2.6-4.7 [facility] Comment on above: Performed By: #### C MP #### [facility] [address] [place] [address] Dr. Elaina Garnett Potassium [Moles/Vol] 4.6 mmol/L Normal 3.5-5.1 [facility] Comment on above: Performed By: #### C MP #### [facility] [address] [address] [address] Elaina Garnett Sodium [Moles/Vol] 142 mmol/L Normal 136-145 [facility] Comment on above: Performed By: #### C MP #### [facility] [address] [address] [address] Elaina Garnett Urea nitrogen [Mass/Vol] 65.0 mg/dL Critically high 7.0-18.0 [facility] Comment on above: Performed By: #### C MP #### [facility] [address] [address] [address] Elaina Garnett CBC panel Auto (Bld)on 05-03 Erythrocyte distribution width (RBC) [Ratio] 14.0 % 11.5 - 15.0 % [facility] Hematocrit (Bld) [Volume fraction] 43.3 % 36.0 - 46.0 % [facility] Hemoglobin (Bld) [Mass/Vol] 13.6 g/dL 11.5 - 15.5 g/dL [facility] MCH (RBC) [Entitic mass] 29.2 pg 26.0 - 34.0 pg [facility] MCHC (RBC) [Mass/Vol] 31.4 g/dL 30.5 - 36.0 g/dL [facility] MCV (RBC) [Entitic vol] 93.1 fL 80.0 - 100.0 fL [facility] Nucleated RBC (Bld) [#/Vol] 10*3/uL <0.01 k/uL [facility] Platelet mean volume (Bld) [Entitic vol] 9.8 fL 9.0 - 12.7 fL [facility] Platelets (Bld) [#/Vol] 247 10*3/uL 150 - 400 k/uL [facility] RBC (Bld) [#/Vol] 4.65 10*6/uL 3.90 - 5.2 0 m/uL [facility] WBC (Bld) [#/Vol] 8.50 10*3/uL 3.70 - 11. 00 k/uL [facility] HEPATIC FUNCTION PNLon 05-03 Albumin [Mass/Vol] 4.2 g/dL 3.9 - 4.9 g/dL [facility] ALP [Catalytic activity/Vol] 114 U/L 34 - 123 U/L [facility] ALT [Catalytic activity/Vol] 11 U/L 7 - 38 U/L [facility] AST [Catalytic activity/Vol] 17 U/L 13 - 35 U/L [facility] Bilirubin [Mass/Vol] 0.7 mg/dL 0.2 - 1 .3 mg/dL [facility] Bilirubin.conjugated [Mass/Vol] mg/dL <0.2 mg/dL [facility] Protein [Mass/Vol] 7.7 g/dL 6.3 - 8.0 g/dL [facility] LIPID PANEL BASICon 05-03-20 22 Cholesterol [Mass/Vol] 155 mg/dL <200 mg/dL [facility] Cholesterol in HDL [Mass/Vol] 39 mg/dL Low >39 mg/dL [facility] Cholesterol in LDL [Mass/Vol] 62 mg/dL <100 mg/dL [facility] Cholesterol in LDL/Cholesterol in HDL [Mass ratio] 1.59 {ratio} <2.54 [facility] Cholesterol in VLDL [Mass/Vol] 54 mg/dL High <30 mg/dL [facility] Cholesterol non HDL [Mass/Vol] 116 mg/dL <130 mg/dL [facility] Cholesterol.total/Farheen sterol in HDL [Mass ratio] 3.97 {ratio} <5.10 [facility] Fasting Time 0 hrs [facility] Triglyceride [Mass/Vol] 272 mg/dL High <150 mg/dL C [facility] MAGNESIUM Don 05-03-2022 Magnesium [Mass/Vol] 2.5 mg/dL High 1.7 - 2 .3 mg/dL [facility] NT PRO BNPon 05-03-2022 Natriuretic peptide.B prohormone N-Terminal [Mass/Vol] 340 pg/mL <450 pg/mL [facility] TSH Don 05-03-2022 TSH Qn 1.590 m[IU]/L 0.270 - 4.200 mIU/L [facility] Vital Signs Date Time Vital Sign Value Performing Clinician Facility 09-26-2024 13:20-0400 Body height 160 cm Edgard Abdi DPM Work Phone: [facility] 09-26-2024 13:20-0400 Body mass index (BMI) [Ratio] 35.07 kg/m2 Edgard Abdi DPM Work Phone: [facility] 09-26-2024 13:20-0400 Body weight 89.81 kg Edgard Abdi DPM Work Phone: [facility] 09-26-2024 13:20-0400 Diastolic blood pressure 77 mm[Hg] Edgard Abdi DPM Work Phone: [facility] 09-26-2024 13:20-0400 Heart rate 78 /min Edgard Brown DPM Work Phone: [facility] 09-26-2024 13:20-0400 Systolic blood pressure 128 mm[Hg] Edgard Abdi DPM Work Phone: [facility] 09-12-2024 13:28-0400 Body height 160 cm Edgard Abdi DPM Work Phone: [facility] 09-12-2024 13:28-0400 Body mass index (BMI) [Ratio] 35.07 kg/m2 Edgard Abdi DPM Work Phone: [facility] 09-12-2024 13:28-0400 Body weight 89.81 kg Edgard Abdi DPM Work Phone: [facility] 09-12-2024 13:28-0400 Diastolic blood pressure 82 mm[Hg] Edgard Lupillo DPM Work Phone: [facility] 09-12-2024 13:28-0400 Heart rate 87 /min Edgard Brown DPM Work Phone: [facility] 09-12-2024 13:28-0400 Systolic blood pressure 125 mm[Hg] Edgard Brown DPM Work Phone: [facility] 09-05-2024 13:27-0400 Body height 160 cm Edgard Abdi DPM Work Phone: [facility] 09-05-2024 13:27-0400 Body mass index (BMI) [Ratio] 35.07 kg/m2 Edgard Abdi DPM Work Phone: [facility] 09-05-2024 13:27-0400 Body weight 89.81 kg Edgard Abdi DPM Work Phone: [facility] 09-05-2024 13:27-0400 Respiratory rate 18 /min Edgard Abdi DPM Work Phone: [facility] 07-23-2024 10:48-0400 Body height 157.5 cm Tiera Spangler [employer] Work Phone: [facility] 07-23-2024 10:48-0400 Body mass index (BMI) [Ratio] 35.84 kg/m2 Tiera Spangler [employer] TE[employer]ER[employer] Work Phone: [facility] 07-23-2024 10:48-0400 Body weight 88.9 kg Tiera Spangler [employer]ARM [employer] TE[employer]ER[employer] Work Phone: [facility] 07-23-2024 10:48-0400 Diastolic blood pressure 82 mm[Hg] Tiera Spangler [employer]OPS TE[employer]ER[employer] Work Phone: [facility] 07-23-2024 10:48-0400 Heart rate 75 /min Tiera Spangler [employer] TE[employer]ER.[employer] Work Phone: [facility] 07-23-2024 10:48-0400 Systolic blood pressure 161 mm[Hg] Tiera Spangler [employer] TEACHER[employer] Work Phone: [facility] 05-03-2024 12:01-0400 Body height 157.48 cm JR Ken Norton Work Phone: [facility] 05-03-2024 12:01-0400 Body temperature 98.3 [degF] JR Ken Norton Work Phone: [facility] 05-03-2024 12:01-0400 Body weight 83.91 kg JR Ken Norton Work Phone: [facility] 05-03-2024 12:01-0400 Diastolic blood pressure 71 mm[Hg] JR Ken Norton Work Phone: [facility] 05-03-2024 12:01-0400 Heart rate 82 /min JR Ken Norton Work Phone: [facility] 05-03-2024 12:01-0400 Respiratory rate 16 /min JR Ken Norton Work Phone: [facility] 05-03-2024 12:01-0400 SaO2% (BldA) [Mass fraction] 98 % JR Ken Norton Work Phone: [facility] 05-03-2024 12:01-0400 Systolic blood pressure 166 mm[Hg] JR Ken Norton Work Phone: [facility] 02-13-2024 10:42-0400 Body height 157.5 cm Marylu Deitzer DO Work Phone: [facility] 02-13-2024 10:42-0400 Body weight 86.5 kg Marylu Deitzer DO Work Phone: [facility] 02-13-2024 10:42-0400 Diastolic blood pressure 81 mm[Hg] Marylu Deitzer DO Work Phone: [facility] 02-13-2024 10:42-0400 Heart rate 59 /min Marylu Deitzer DO Work Phone: [facility] 02-13-2024 10:42-0400 Systolic blood pressure 158 mm[Hg] Marylu Deitzer DO Work Phone: [facility] 06-13-2023 14:45-0400 Body height 162.6 cm Tiera Spangler APRN.[employer] Work Phone: [facility] 06-13-2023 14:45-0400 Body weight 88.45 kg Tiera Spangler APRN.[employer] Work Phone: [facility] 06-13-2023 14:45-0400 Diastolic blood pressure 83 mm[Hg] Tiera Crsy [employer] TEACHER.[employer] Work Phone: [facility] 06-13-2023 14:45-0400 Heart rate 80 /min Tiera Crys [employer]ARM [employer] TEACHER.[employer] Work Phone: [facility] 06-13-2023 14:45-0400 Systolic blood pressure 130 mm[Hg] Tiera Crys [employer] TEACHER.[employer] Work Phone: [facility] 01-10-2023 11:01-0500 Body height 162.6 cm Tiera Crys [employer]ARM [employer]OPS TEACHER.[employer] Work Phone: [facility] 01-10-2023 11:01-0500 Body weight 86.64 kg Tiera Crys [employer]ARM [employer]OPS TEACHER.[employer] Work Phone: [facility] 01-10-2023 11:01-0500 Diastolic blood pressure 81 mm[Hg] Tiera Crys [employer] TEACHER.[employer] Work Phone: [facility] 01-10-2023 11:01-0500 Heart rate 76 /min Tiera Crys [employer] TE[employer]ER[employer] Work Phone: [facility] 01-10-2023 11:01-0500 Systolic blood pressure 130 mm[Hg] Tiera Crys [employer] TEACHER.[employer] Work Phone: [facility] 05-03-2022 15:05-0400 Body height 162.6 cm Tiera Crys [employer]ARM [employer] TEACHER.[employer] Work Phone: [facility] 05-03-2022 15:05-0400 Body weight 89.63 kg Tiera Crys [employer]ARM [employer] TEACHER.[employer] Work Phone: [facility] 05-03-2022 15:05-0400 Diastolic blood pressure 83 mm[Hg] Tiera Crys [employer] TEACHER.[employer] Work Phone: [facility] 05-03-2022 15:05-0400 Heart rate 75 /min Tiera Crys [employer]ARM [employer]OPS TEACHER.[employer] Work Phone: [facility] 05-03-2022 15:05-0400 Systolic blood pressure 182 mm[Hg] Tiera Spangler [employer]OPS TEACHER.[employer] Work Phone: [facility] Encounters Encounter Date Encounter Type Care Provider Facility Start: 09-26-2024 End: 09-26-2024 Bamboo flowsmartin Abdi DPM Work Phone: [facility] Start: 09-26-2024 End: 09-26-2024 Bamboo flowsheet Edgard Abdi DPM Work Phone: [facility] Start: 09-26-2024 End: 09-26-2024 Office outpatient visit 15 minutes Edgard Abdi DPM Work Phone: [facility] Comment on above: Osteomyelitis of ank le or foot, acute, right (CMS/HCC) (Primary Dx); Type 2 diabetes mellitus with diabetic neuropathy, with long-term current use of insulin (CMS/HCC); Foot ulcer, right, with fat layer exposed (CMS/HCC); Acquired deformity of right toe Start: 09-26-2024 End: 09-26-2024 ambulatory EDGARD ABDI Not Available Start: 09-12-2024 End: 09-12-2024 Bamboo flowsheet Edgard Abdi DPM Work Phone: [facility] Start: 09-12-2024 End: 09-12-2024 Bamboo flowsheet Edgard Abdi DPM Work Phone: [facility] Start: 09-12-2024 End: 09-12-2024 Office outpatient visit 15 minutes Edgard Abdi DPM Work Phone: [facility] Comment on above: Type 2 diabetes mya itus with diabetic neuropathy, with long- term current use of insulin (CMS/HCC) (Primary Dx); Foot ulcer, right, with fat layer exposed (CMS/HCC); Acquired deformity of right toe Start: 09-12-2024 End: 09-12-2024 ambulatory EDGARD ABDI Not Available Start: 09-05-2024 End: 09-05-2024 Bamboo flowsheet Edgard Abdi DPM Work Phone: [facility] Start: 09-05-2024 End: 09-05-2024 Bamboo flowsheet Edgard Abdi DPM Work Phone: [facility] Start: 09-05-2024 End: 09-05-2024 Office outpatient visit 15 minutes Edgard Abdi DPM Work Phone: [facility] Comment on above: Acquired deformity [...] Start: 08-15-2024 End: 08-15-2024 ambulatory TIERA SPANGLER Facility:[facility] Start: 08-02-2024 End: 08-02-2024 Telephone encounter Tiera Spangler [employer] Work Phone: [facility] Comment on above: Results Start: 08-01-2024 End: 08-01-2024 ambulatory TIERA SPANGLER Facility:[facility] Start: 07-31-2024 End: 07-31-2024 ambulatory Lasha Mackenzie Facility:[facility] Start: 07-31-2024 End: 07-31-2024 Patient encounter procedure Lasha Mackenzie [facility] Start: 07-24-2024 End: 07-24-2024 Telephone encounter Tiera Spangler [employer] Work Phone: [facility] Comment on above: Results Start: 07-24-2024 End: 07-24-2024 ambulatory Lasharichie Mackenzie Facility:[facility] Start: 07-24-2024 End: 07-24-2024 Patient encounter procedure Lasha Mackenzie [facility] Start: 07-23-2024 End: 07-23-2024 Patient encounter procedure Tiera Spangler APRN.[employer] Work Phone: [facility] Comment on above: CKD (chronic kidney disease) stage 4, GFR 15-29 ml/min ([facility]) (Primary Dx); Proteinuria, unspecified type; 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, with long-term current use of insulin ([facility]); Benign hypertension with chronic kidney disease, stage IV ([facility]); Hyperkalemia; Vitamin D deficiency Start: 07-23-2024 End: 07-23-2024 ambulatory TIERA SPANGLER Facility:[facility] Start: 07-17-2024 End: 07-17-2024 ambulatory Lasha Mackenzie Facility[facility] Start: 07-17-2024 End: 07-17-2024 Patient encounter procedure Lasha Mackenzie [facility] Start: 07-03-2024 End: 07-03-2024 ambulatory Lasha Mackenzie Facility:[facility] Start: 07-03-2024 End: 07-03-2024 Patient encounter procedure Lasha Mackenzie [facility] Start: 06-27-2024 End: 06-27-2024 ambulatory EDGARD ABDI Not Available Start: 06-18-2024 Telephone encounter Tiera figueroa RD Work Phone: Kidney Medicine Comment on above: Medication Assistanc e (LOKELMA) Start: 06-13-2024 End: 06-13-2024 ambulatory EDGARD ABDI Not Available Start: 06-06-2024 End: 06-06-2024 ambulatory EDGARD ABDI Not Available Start: 05-23-2024 End: 05-23-2024 ambulatory EDGARD ABDI Not Available Start: 05-20-2024 End: 05-20-2024 ambulatory FARTUN M PETZNICK Not Available Start: 05-16-2024 End: 05-16-2024 ambulatory EDGARD A BROWN Not Available Start: 05-09-2024 End: 05-09-2024 ambulatory EDGARD A BROWN Not Available Start: 05-03-2024 End: 05-03-2024 Admission to same day surgery center JR Ken Norton Work Phone: [facility] Start: 05-03-2024 End: 05-03-2024 ambulatory JR Ken Norton Work Phone: [facility] Work Phone: Start: 04-25-2024 End: 04-25-2024 ambulatory [...] Start: 02-13-2024 End: 02-13-2024 ambulatory TIERA SPANGLER Facility:[facility] Start: 02-13-2024 End: 02-13-2024 Patient encounter [...] Start: 12-26-2023 End: 12-26-2023 ambulatory TIERA SPANGLER Facility:[facility] Start: 12-18-2023 End: 12-19-2023 ambulatory EDGARD ABDI Not Available Start: 11-28-2023 End: 11-28-2023 ambulatory SHAWN STOUT Not Available Start: 11-23-2023 End: 11-23-2023 ambulatory EDGARD ABDI Not Available Start: 11-15-2023 Telephone encounter Tiera Spangler APRN.[employer] Work Phone: Kidney Medicine Comment on above: Patient Update Start: 11-08-2023 Orders Only Tiera Mendez and FARM CROPS TEACHER.[employer] Work Phone: Kidney Medicine Comment on above: Benign hypertension with chronic kidney disease, stage IV (HCC) (Primary Dx) Start: 11-06-2023 Telephone encounter Tiera Spangler APRN.[employer] Work Phone: Kidney Medicine Comment on above: Results Start: 11-06-2023 End: 11-06-2023 ambulatory FARTUN SKINNER Not Available Start: 10-23-2023 Telephone encounter Tiera Spangler APRN.[employer] Work Phone: Kidney Medicine Comment on above: Results Start: 10-10-2023 Telephone encounter Tiera Spangler APRN.[employer] Work Phone: Kidney Medicine Comment on above: Critical Results Start: 10-09-2023 Telephone encounter Tiera Spangler APRN.[employer] Work Phone: [facility] [place] Comment on above: Lab Orders Start: 07-20-2023 Telephone encounter Tiera Sultana Crys BELL Work Phone: [facility] Medicine [place] Comment on above: Medication Question Start: 06-13-2023 End: 06-13-2023 Patient encounter procedure Tiera Sultana Crys FRYE.[employer] Work Phone: Kidney Medicine Comment on above: Benign hypertension with chronic kidney disease, stage IV (HCC) (Primary Dx); CKD (chronic kidney disease) stage 4, GFR 15-29 ml/min (HCC); Proteinuria, unspecified type; Hyperkalemia; 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, unspecified whether email marketing assistant insulin use (HCC) Start: 04-26-[address] KEN NORTON [facility] ity:H1 Start: 03-27-2023 End: 03-27-[address] JORGE RUIZ . Facility:[facility]1 Start: 03-25-2023 End: 03-26-[address] KEN NORTON Facility:[facility]1 Start: 01-10-2023 End: 01-10-2023 Patient encounter procedure Tiera Sultana Crys FRYE.[employer] Work Phone: Kidney Medicine Comment on above: Benign hypertension with chronic kidney disease, stage IV (HCC) (Primary Dx); CKD (chronic kidney disease) stage 4, GFR 15-29 ml/min (HCC); Proteinuria, unspecified type; Hyperkalemia; 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, unspecified whether email marketing assistant insulin use (HCC); Vitamin D deficiency Start: 11-04-2022 End: 11-05-[address] SHAHRZAD AKBAR . Facility:[facility] Start: 09-14-2022 End: 09-15-[address] KEN NORTON Facility:[facility] Start: 09-13-2022 End: 09-14-[address] KEN NORTON Facility:[facility] Start: 05-17-2022 Telephone encounter Marylu gregory DO Work Phone: Kidney Medicine Comment on above: Results Start: 05-17-2022 End: 05-18-[address] KEN NORTON Facility: Start: 05-04-2022 Telephone encounter Tiera Spangler APRN.CNP [...] stage 4 chronic kidney disease, unspecified whether email marketing assistant insulin use (HCC); Vitamin D deficiency; Chronic combined systolic and diastolic congestive heart failure (HCC) Procedures Date Procedure Procedure Detail Performing Clinician Start: 05-03-2024 Debridement JR Ken Norton Work Phone: Start: 01-20-2014 left carpal tunnel release Lasha Avril Plan of Treatment Date Care Activity Detail Author Start: 12-05-2031 Urine microalbumin profile DTaP,Tdap,Td Vaccine (3 - Td or Tdap) [facility] Start: 02-12-2025 Complete blood count Hemoglobin/Dhaval tocrit [facility] Start: 02-12-2025 Creatinine measurement Serum Creatin ine [facility] Start: 12-10-2024 End: 12-10-2024 Patient encounter procedure 12/10/2024 1:00 PM EST Office Visit [facility] Medicine [address] [facility] [place] [address] Tiera Spangler APRN.CNP [address] [place] [address] 4-6 MONTH FOLLOW UP [facility] Medicine Comment on above: 4-6 MONTH FOLLOW UP Start: 12-02-2024 End: 12-02-2024 Patient encounter procedure 12/02/2024 3:30 PM EST Office Visit [facility] [address] [place] [address] Shawn Stout DO [address] [place] [address] [facility] Start: 11-22-2024 End: 02-21-2025 Renal function 2000 panel - Serum or Plasma RENAL FUNCTION PANEL Lab Routine CKD (chronic kidney disease) stage 4, GFR 15-29 ml/min ([facility]) Proteinuria, unspecified type 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, with long-term current use of insulin ([facility]) Benign hypertension with chronic kidney disease, stage IV ([facility]) Hyperkalemia Vitamin D deficiency Expected: 11/22/2024, Expires: 02/21/2025 [facility] Comment on above: Expected: 11/22/2024 , Expires: 02/21/2025 Start: 11-14-2024 End: 11-14-2024 Patient encounter procedure 11/14/2024 1:30 PM EST Office Visit [facility] [address] [place] [id number] Fartun Skinner DO [address] [place] [address] [facility] [address] Start: 11-14-2024 End: 11-14-2024 Patient encounter procedure 11/14/2024 11:50 AM EST Procedure Visit [facility] [address] [facility] [address] [place] [id number] Edgard Abdi, JEFF [address] [facility] [address] [place] [address] [facility] Start: 10-23-2024 Hemoglobin A1c measurement HbA1C [facility] Start: 09-26-2024 End: 10-26-2024 NM Bone Limited Views NM bone limited Imaging High Priority Osteomyelitis of ankle or foot, acute, right ([facility]/HCC) Expected: 09/26/2024 (Approximate), Expires: 10/26/2024 [facility] Work Phone: Comment on above: Expected: 09/26/2024 (Approximate), Expires: 10/26/2024 Start: 09-26-2024 End: 09-26-2024 Patient encounter procedure [facility] Comment on above: Type 2 diabetes mya itus with diabetic neuropathy, with long- term current use of insulin (CMS/HCC) (Primary Dx); Foot ulcer, right, with fat layer exposed (CMS/HCC); Acquired deformity of right toe Start: 09-12-2024 End: 09-12-2024 Patient encounter procedure [facility] Comment on above: Type 2 diabetes mya itus with diabetic neuropathy, with long- term current use of insulin (CMS/HCC) (Primary Dx); Foot ulcer, right, with fat layer exposed (CMS/HCC); Acquired deformity of right toe Start: 09-05-2024 End: 09-05-2024 Patient encounter procedure 09/05/2024 1:30 PM EDT Procedure Visit [facility] [address] [facility] [address] [place] [address] Edgard Abdi DPM [address] [facility] [address] [place] [address] Foot ulcer, right, with fat layer exposed (CMS/HCC) (Primary Dx); Type 2 diabetes mellitus with diabetic neuropathy, with long-term current use of insulin (CMS/HCC); Pain due to onychomycosis of toenails of both feet [facility] Comment on above: Foot ulcer, right, w ith fat layer exposed (CMS/HCC) (Primary Dx); Type 2 diabetes mellitus with diabetic neuropathy, with long-term current use of insulin (CMS/HCC); Pain due to onychomycosis of toenails of both feet Start: 08-20-2024 Hemoglobin A1c measurement HbA1C [facility] Start: 08-02-2024 End: 11-01-2024 Renal function 2000 panel - Serum or Plasma RENAL FUNCTION PANEL Lab Routine CKD (chronic kidney disease) stage 4, GFR 15-29 ml/min ([facility]) Expected: 08/02/2024, Expires: 11/01/2024 [facility] Work Phone: Comment on above: Expected: 08/02/2024 , Expires: 11/01/2024 Start: 07-28-2024 Covid-19 Vaccine ( season) Covid-19 Vaccine () [facility] Start: 07-28-2024 Influenza vaccination [facility] Start: 07-24-2024 End: 10-23-2024 Renal function 2000 panel - Serum or Plasma RENAL FUNCTION PANEL Lab Routine Hyperkalemia Expected: 07/24/2024, Expires: 10/23/2024 [facility] Work Phone: Comment on above: Expected: 07/24/2024 , Expires: 10/23/2024 Start: 07-23-2024 End: 10-22-2024 25-hydroxyvitamin D3 [Mass/volume] in Serum or Plasma [facility] Comment on above: Expected: 07/23/2024 , Expires: 10/22/2024 Start: 07-23-2024 End: 10-22-2024 Parathyrin.intact [Mass/volume] in Serum or Plasma [facility] Work Phone: Comment on above: Expected: 07/23/2024 , Expires: 10/22/2024 Start: 06-25-2024 End: 06-25-2024 Patient encounter procedure 06/25/2024 11:00 AM EDT Office Visit [facility] Medicine [address] [place] [address] Tiera Spangler APRN.[employer] [address] [place] [address] 3 month f/u [facility] Medicine Comment on above: 3 month f/u Start: 05-07-2024 Hemoglobin A1c measurement HbA1C [facility] Start: 05-03-2024 [facility] Start: 01-10-2024 Complete blood count Hemoglobin/Dhaval tocrit [facility] Start: 01-10-2024 Creatinine measurement Serum Creatin ine [facility] Start: 01-10-2024 HEMOGLOBIN/HEMATOCRIT HEMOGLOBIN/HEM ATOCRIT [facility] Start: 01-10-2024 SERUM CREATININE SERUM CREATININE Cl [facility] Start: 11-27-2023 Advance Directive Discussion Advance Directive Discussion [facility] Start: 11-27-2023 Behavioral Health Screening Behavioral Health Screening [facility] Start: 11-27-2023 Depression Assessment Depression Ass essment [facility] Start: 11-16-2023 Hemoglobin A1c measurement HbA1C [facility] Start: 11-16-2023 Hemoglobin A1c/Hemoglobin.total in Blood HbA1C [facility] Start: 11-08-2023 End: 02-07-2024 Renal function 2000 panel - Serum or Plasma RENAL FUNCTION PANEL Lab Routine Benign hypertension with chronic kidney disease, stage IV (HCC) Expected: 11/08/2023, Expires: 02/07/2024 [facility] Work Phone: Comment on above: [...] stage 4 chronic kidney disease, unspecified whether halfway insulin use (HCC) Expected: 10/14/2023, Expires: 12/14/2023 [facility] Work Phone: Comment on above: Expected: 10/14/2023 , Expires: 12/14/2023 Start: 10-14-2023 End: 12-14-2023 ALBUMIN/CREAT RATIO RND UR ALBUMIN/CREAT RATIO RND UR Lab Routine Benign hypertension with chronic kidney disease, stage IV (HCC) CKD (chronic kidney disease) stage 4, GFR 15-29 ml/min (HCC) Proteinuria, unspecified type Hyperkalemia 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, unspecified whether halfway insulin use (HCC) Expected: 10/14/2023, Expires: 12/14/2023 [facility] Work Phone: Comment on above: Expected: 10/14/2023 , Expires: 12/14/2023 Start: 10-14-2023 End: 12-14-2023 CBC panel - Blood by Automated count CBC Lab Routine Benign hypertension with chronic kidney disease, stage IV (HCC) CKD (chronic kidney disease) stage 4, GFR 15-29 ml/min (HCC) Proteinuria, unspecified type Hyperkalemia 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, unspecified whether halfway insulin use (HCC) Expected: 10/14/2023, Expires: 12/14/2023 [facility] Work Phone: Comment on above: Expected: 10/14/2023 , Expires: 12/14/2023 Start: 10-14-2023 End: 12-14-2023 Parathyrin.intact [Mass/volume] in Serum or Plasma PTH INTACT BLD Lab Routine Benign hypertension with chronic kidney disease, stage IV (HCC) CKD (chronic kidney disease) stage 4, GFR 15-29 ml/min (HCC) Proteinuria, unspecified type Hyperkalemia 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, unspecified whether halfway insulin use (HCC) Expected: 10/14/2023, Expires: 12/14/2023 [facility] Work Phone: Comment on above: [...] stage 4 chronic kidney disease, unspecified whether halfway insulin use (HCC) Expected: 10/14/2023, Expires: 12/14/2023 [facility] Work Phone: Comment on above: Expected: 10/14/2023 , Expires: 12/14/2023 Start: 08-11-2023 Hemoglobin A1c/Hemoglobin.total in Blood HBA1C [facility] Start: 07-28-2023 Covid-19 Vaccine () Covid-19 Vaccine () [facility] Start: 07-28-2023 Influenza vaccination C [facility] Start: 05-03-2023 HEMOGLOBIN/HEMATOCRIT HEMOGLOBIN/HEM ATOCRIT [facility] Start: 05-03-2023 Hepatitis B surface antibody level LDL CHOLESTEROL [facility] Start: 05-03-2023 SERUM CREATININE SERUM CREATININE [facility] Start: 01-10-2023 End: 03-12-2023 25-hydroxyvitamin D3 [Mass/volume] in Serum or Plasma [facility] Work Phone: Comment on above: Expected: 01/10/2023 , Expires: 03/12/2023 Start: 01-10-2023 End: 03-12-2023 Creatinine [Mass/volume] in Urine collected for unspecified duration [facility] Work Phone: Comment on above: Expected: 01/10/2023 , Expires: 03/12/2023 Start: 01-10-2023 End: 03-12-2023 Protein [Mass/volume] in Urine [facility] Work Phone: Comment on above: Expected: 01/10/2023 , Expires: 03/12/2023 Start: 01-07-2023 COVID-19 VACCINE (5 - Moderna series) COVID-19 VACCINE (5 - Moderna series) [facility] Start: 12-21-2022 SERUM CREATININE SERUM CREATININE [facility] Start: 11-27-2022 ADVANCE DIRECTIVE DISCUSSION ADVANCE DIRECTIVE DISCUSSION [facility] Start: 11-27-2022 DEPRESSION ASSESSMENT DEPRESSION ASS ESSMENT [facility] Start: 07-28-2022 Influenza vaccination [facility] Start: 05-06-2022 COVID-19 VACCINE (4 - Booster for Moderna series) COVID-19 VACCINE (4 - Booster for Moderna series) [facility] Start: 12-29-2021 Hemoglobin A1c/Hemoglobin.total in Blood HBA1C [facility] Start: 11-27-2021 ADVANCE DIRECTIVE DISCUSSION ADVANCE DIRECTIVE DISCUSSION [facility] Start: 09-18-2021 Hemoglobin A1c/Hemoglobin.total in Blood HBA1C [facility] Start: 11-12-2020 Hepatitis B surface antibody level LDL CHOLESTEROL [facility] Start: 2008 BONE DENSITY BONE DENSITY [facility] Start: 2008 Bone Density Screening Bone Density Screening [facility] Start: 2008 Pneumococcal Vaccine : 65+ Years (1 of 1 - PCV) Pneumococcal Vaccine: 65+ Years (1 of 1 - PCV) [facility] Start: 2008 Screening for osteoporosis Bone Density Screening [facility] Start: 2003 Hepatitis B Vaccine (1 of 3 - Risk 3-dose series) Hepatitis B Vaccine (1 of 3 - Risk 3-dose series) [facility] Start: 2003 RSV Vaccine (1 - 1-d ose 60+ series) RSV Vaccine (1 - 1-dose 60+ series) [facility] Start: 1993 SHINGRIX VACCINE (1 of 2) SHINGRIX VACCINE (1 of 2) [facility] Start: 1962 Urine microalbumin profile DTAP,TDAP,TD (1 - Tdap) [facility] Start: 1961 ANNUAL PCP TEAM HAMMERER ZEUS DISEASE VISIT ANNUAL PCP TEAM CHRONIC DISEASE VISIT [facility] Start: 1961 Anxiety Screening Anxiety Screening [facility] Start: 1961 BP CONTROLLED (<130/80) BP CONTROLLE D (<130/80) [facility] Start: 1961 Depression Screening Depression Scre ening [facility] Start: 1955 Adult depression screening assessment DEPRESSION SCREENING [facility] Start: 1953 3 comp foot exam completed DIABETIC FOOT EXAM [facility] Start: 1953 Diabetic foot examination Diabetic Foot Exam [facility] Start: 1953 Glaucoma screening Dilated Retinal E xam [facility] Start: 1953 Hepatitis C antibody , confirmatory test DILATED RETINAL EXAM [facility] Start: 1949 Pneumococcal Vaccine : 65+ (1 - PCV) Pneumococcal Vaccine: 65+ (1 - PCV) [facility] Start: 1949 Pneumococcal Vaccine : 65+ (1 of 2 - PCV) Pneumococcal Vaccine: 65+ (1 of 2 - PCV) [facility] Start: 1949 PNEUMOCOCCAL: 65+ (1 - PCV) PNEUMOCOCCAL: 65+ (1 - PCV) [facility] Patient Education Know your [facility] Work Phone: [facility] Immunizations Immunization Date Immunization Notes Care Provider Fa avery 10-17-2022 influenza, injectabl e, quadrivalent, preservative free Edgard Abdi DPM Work Phone: [facility] 10-17-2022 influenza virus vacc ine, unspecified formulation Tiera Spangler APRN.[employer] Work Phone: [facility] 09-28-2022 influenza, high dose seasonal, preservative-free Edgard Abdi DPM Work Phone: [facility] 09-06-2022 Moderna Bivalent Figueroa ster Vaccination Edgard Abdi DPM Work Phone: [facility] 01-05-2022 Moderna SARS-CoV-2 Booster Vaccination Edgard Abdi DPM Work Phone: [facility] 12-05-2021 diphtheria, tetanus toxoids and pertussis vaccine Edgard Abdi DPM Work Phone: [facility] 12-05-2021 tetanus toxoid, redu manny diphtheria toxoid, and acellular pertussis vaccine, adsorbed Edgard Abdi DPM Work Phone: [facility] 10-20-2020 Seasonal trivalent influenza vaccine, adjuvanted, preservative free Edgard Abdi DPM Work Phone: [facility] 09-10-2019 influenza, seasonal, injectable, preservative free Edgard Abdi DPM Work Phone: [facility] 08-27-2016 seasonal influenza, intradermal, preservative free Edgard Abdi DPM Work Phone: [facility] Payers Date Payer Category Payer Self-pay [id number] 2022 Unknown AARP AARP [id number] 2022-Present [address] [place] [address] [id number] 2018 Private Health Insurance [facility] AARP SUPPLEMENT [id number] 2018-Present [phone] [address] [place] [address] Indemnity [id number] 2018 Private Health Insurance [id number] 2014 Unknown [id number] 2008 Medicare MEDICARE MEDICAR E A AND B [id number] 2008-Present [phone] [address] [address] [place] [address] Medicare [id number] 2008 Medicare [id number] .[id number] 1959 Medicare [id number] 1959 Unknown [id number] 1943 Unknown [id number] 2.16.840.1.627946.3.579.2 .593 1943 Unknown [id number] 2.16.840.1.743826.3.579.2 .593 1943 Unknown [id number] 2.16.840.1.144206.3.579.2 .593 1943 Unknown [id number] 2.16.840.1.615415.3.579.2 .593 1943 Unknown [id number] 2.16.840.1.936869.3.579.2 .593 1943 Unknown [id number] 2.16.840.1.353542.3.579.2 .593 1943 Unknown [id number] 2.16.840.1.819010.3.579.2 .593 1943 Unknown [id number] 2.16.840.1.436859.3.579.2 .727 1943 Unknown [id number] 2.16.840.1.140373.3.579.2 .727 1943 Unknown [id number] 2.16.840.1.614063.3.579.2 .727 1943 Unknown [id number] 2.16.840.1.103786.3.579.2 .727 1943 Unknown [id number] 2.16.840.1.533670.3.579.2 .1259 1943 Unknown [id number] 2.16.840.1.691271.3.579.2 .1259 1943 Unknown [id number] 2.16.840.1.399174.3.579.2 .1259 1943 Unknown [id number] 2.16840.1.383644.3.579.2 .1259 1943 Unknown [id number] 2.16.840.1.199098.3.579.2 .1259 1943 Unknown [id number] 2.16.840.1.029362.3.579.2 .1259 1943 Unknown [id number] 2.16.840.1.455835.3.579.2 .1259 1943 Unknown [id number] 2.16840.1.280209.3.579.2 .1259 1943 Unknown [id number] 2.16.840.1.912321.3.579.2 .1259 1943 Unknown [id number] 2.16.840.1.721431.3.579.2 .1259 1943 Unknown [id number] 2.16.840.1.014278.3.579.2 .1259 1943 Unknown [id number] 2.16.840.1.585824.3.579.2 .1259 1943 Unknown [id number] 2.16.840.1.543137.3.579.2 .1259 1943 Unknown [id number] 2.16.840.1.656821.3.579.2 .1259 1943 Unknown [id number] 2.16.840.1.268078.3.579.2 .1259 1943 Unknown [id number] 2.16.840.1.995695.3.579.2 .1259 1943 Unknown [id number] 2.16.840.1.385473.3.579.2 .125 1943 Unknown [id number] 2.16.840.1.690052.3.579.2 .125 1943 Unknown [id number] 2.16.840.1.360796.3.579.2 .125 1943 Unknown [id number] 2.16.840.1.911815.3.579.2 .125 1943 Unknown [id number] 2.16.840.1.546616.3.579.2 .125 1943 Unknown [id number] 2.16.840.1.183637.3.579.2 .1259 1943 Unknown [id number] 2.16.840.1.421987.3.579.2 .125 1943 Unknown [id number] 2.16.840.1.529473.3.579.2 .1259 1943 Unknown [id number] 2.16.840.1.637596.3.579.2 .1259 1943 Unknown [id number] 2.16.840.1.683396.3.579.2 .1259 Unknown [id number] 2.16.840.1.229146.3.579.2 .531 Social History Date Type Detail Facility Start: 11-12-2019 End: 04-19-2023 Tobacco smoking status NHIS Never smoked tobacco [facility] Start: 11-12-2019 End: 04-19-2023 Tobacco use and exposure Smokeless tobacco non-user [facility] Start: 05-03-2022 End: 09-26-2024 Alcohol intake Lifetime non-drinker (finding) [facility] Start: 11-12-2019 History SDOH Alcohol Frequency 1 [facility] Start: 1945 Sex Assigned At Not on file [facility] Start: 04-23-2022 End: 05-03-2022 Exposure to SARS-CoV-2 (event) Not sure [facility] Start: 11-12-2019 End: 08-19-2024 History of Social function [facility] Work Phone: Start: 11-12-2019 End: 08-19-2024 Alcohol Use Disorder Identification Test - Consumption [AUDIT-C] [facility] Work Phone: How often to you hav e a drink containing alcohol? Never [facility] Work Phone: Average Number of Drinks Not on file [facility] Start: 1945 Sex Assigned At Female [facility] Start: 12-18-2023 Alcohol Comment Caffeine intake: 1-2 cups/day coffee [facility] Procedure Code Equipment Code Equipment Origin al Text Equipment Identifier Dates USE FOUR TIMES A DAY [id number] Star t: 07-23-2024 Goals Date Patient Goal Desired Activity /State Clinical Notes 05-03-2022 to 09-26-2024 Edgard Abdi DPM - 09/26/2024 1:20 PM Genesis Abdi DPM - 09/12/2024 1:30 PM Genesis Abdi DPM - 09/05/2024 1:30 PM Tiera Maciel APRN.[employer] - 07/23/2024 10:53 AM EDT Note Date & Type Note Facility 09-26-2024 History of Presen t illness Narrative atient: [...] distal right hallux Pt is a DM2. She was to have STSG but has reconsidered and presents today for follow up. Patient like did reconsider option at this time however with the side in near future Allergies: Allergies Allergen Reactions Cephalexin Other Reaction(s): [...] , Rfl: Cholecalciferol (Vitamin D) 50 MCG (1999 UT) capsule, 2 capsules 1 (one) time each day at the same time., Disp: , Rfl: Continuous Glucose Manager Employee Benefits (FreeStyle Gualberto 3 Ronco) device, 1 Device See administration instructions, Disp: [...] and negative PT pedal pulses NEURO: 5.07 Mcdermott Karthik monofilament test diminished to digits and forefoot bilaterally 125Hz tuning fork diminished to 1st MPJ bilaterally ORTHO: Positive pain on palpation to nails 1 through 10 Negative palpation to right hallux Notable hallux malleus to the right great toe ASSESSMENT 1. Type 2 diabetes mellitus with diabetic neuropathy, with long-term current use of insulin (CMS/[facility]) 2. Foot ulcer, right, with fat layer exposed (CMS/HCC) 3. Acquired deformity of right toe 4. Osteomyelitis of ankle or foot, acute, right (CMS/HCC) PLAN Sharp debridement with 15 blade of subcutaneous ulceration to right foot with active bleeding noted and removal and excision of fibrotic and necrotic tissue to wound and DSD applied with neosporin. Pt to continue with Betadine and Padma daily Order bone scan to rule out osteomyelitis follow up shortly thereafter to discuss possible treatment options time including most likely split-thickness skin graft if no infection noted Edgard Abdi DPM documented in this encounter [facility] 09-12-2024 History of Presen t illness Narrative [...] , Rfl: Cholecalciferol (Vitamin D) 50 MCG (1999 UT) capsule, 2 capsules 1 (one) time each day at the same time., Disp: , Rfl: Continuous Glucose Manager Employee Benefits (FreeStyle Gualberto 3 Ronco) device, 1 Device See administration instructions, Disp: 1 each, Rfl: 0 Continuous Glucose Sensor (FreeStyle Gualberto 3 Sensor) [facility], Inject 1 Device under the skin every 14 (fourteen) days, Disp: 6 each, Rfl: 3 finerenone (Kerendia) 10 MG tablet, Take 20 mg by mouth 1 (one) time each day at the same time., Disp: , Rfl: insulin glargine (Lantus SoloStar) 100 UNIT/ML pen, Inject 15 Units under the skin in the morning., Disp: 15 mL, Rfl: 3 insulin lispro-aabc (Marzenaumalfredoangela SamiPen) 100 UNIT/ML pen, 8 units shake, 10 [...] and negative PT pedal pulses NEURO: 5.07 Mcdermott Karthik monofilament test diminished to digits and [...] Patient may continue with conservative treatments including fjly-txq-ppqoyte anti-inflammatories and other treatments suggested today. Patient [...] Edgard Abdi DPM documented in this encounter [facility] 09-05-2024 History of Presen t illness Narrative [...] the following treatments for the ulcer of padma in the past. Pt is a DM2. [...] , Rfl: Cholecalciferol (Vitamin D) 50 MCG (2000 UT) capsule, 2 capsules 1 (one) time each day at the same time., Disp: , Rfl: Continuous Glucose Manager Employee Benefits (FreeStyle Gualberto 3 Ronco) device, 1 Device See administration instructions, Disp: [...] and negative PT pedal pulses NEURO: 5.07 Mcdermott Karthik monofilament test diminished to digits and [...] Edgard Abdi DPM documented in this encounter [facility] 08-02-2024 Telephone encounter Note Called and spoke to Pt in regards to below message. Pt understood and will repeat labs. EFE Schulte Please call patient Her potassium is better on the increased lokelma of 15gm daily Scr is a bit above baseline at 2.3 Please have her repeat the labs nonfasting in 1-2 weeks in [place], orders are in Tiera Spangler APRN.WEDDING TRANSPORTATION DRIVER [facility] 08-02-2024 Miscellaneous Notes Called and spoke to Pt in regards to below message. Pt understood and will repeat labs. Katt EFE Avalos Please call patient Her potassium is better on the increased lokelma of 15gm daily Scr is a bit above baseline at 2.3 Please have her repeat the labs nonfasting in 1-2 weeks in [place], orders are in Tiera Spangler APRN.WEDDING TRANSPORTATION DRIVER documented in this encounter [facility] 08-02-2024 Telephone encounter Note Please call patient Her potassium is better on the increased lokelma of 15gm daily Scr is a bit above baseline at 2.3 Please have her repeat the labs nonfasting in 1-2 weeks in [place], orders are in Tiera Spangler APRN.WEDDING TRANSPORTATION DRIVER [facility] 08-02-2024 Miscellaneous Notes Please call patient Her potassium is better on the increased lokelma of 15gm daily Scr is a bit above baseline at 2.3 Please have her repeat the labs nonfasting in 1-2 weeks in [place], orders are in Tiera Spangler APRN.WEDDING TRANSPORTATION DRIVER documented in this encounter [facility] 07-24-2024 Telephone encounter Note Called and spoke to Pt in regards to below message. Pt understood and will do as suggested. Please call pt re: labs Kidney function is stable Potassium is a little high at 5.4 Continue lokelma. I am going to increase it to 15gm daily I will order a new shipment to be sent Labs in [place] 1 week after she starts increase, nonfasting ARABELLA Larson OCCA [facility] 07-24-2024 Miscellaneous Notes Called and spoke to Pt in regards to below message. Pt understood and will do as suggested. Please call pt re: labs Kidney function is stable Potassium is a little high at 5.4 Continue lokelma. I am going to increase it to 15gm daily I will order a new shipment to be sent Labs in [place] 1 week after she starts increase, nonfasting ARABELLA Larson OCCA Please call pt re: labs Kidney function is stable Potassium is a little high at 5.4 Continue lokelma. I am going to increase it to 15gm daily I will order a new shipment to be sent Labs in [place] 1 week after she starts increase, nonfasting Tiera Spangler APRN.WEDDING TRANSPORTATION DRIVER documented in this encounter [facility] 07-24-2024 Telephone encounter Note Please call pt re: labs Kidney function is stable Potassium is a little high at 5.4 Continue lokelma. I am going to increase it to 15gm daily I will order a new shipment to be sent Labs in [place] 1 week after she starts increase, nonfasting Tiera Spangler APRN.CNP [facility] 07-23-2024 Note HNO ID: [id number] Author: TIERA SPANGLER APRN.WEDDING TRANSPORTATION DRIVER Service: ? Author Type: Nurse Practitioner Type: [...] 4000U D 3-follow labs DM-she follows in [place], [place]. Update A1C. Continue endo follow up Plan Update labs Follow up 4-6 months Tiera Spangler APRN.DORINA [facility] 07-23-2024 History of Presen t illness Narrative [...] 4000U D 3-follow labs DM-she follows in [place], [place]. Update A1C. Continue endo follow up Plan Update labs Follow up 4-6 months Tiera Spangler APRN.WEDDING TRANSPORTATION DRIVER documented in this encounter [facility] 06-18-2024 Telephone encounter Note Spoke with pt, offered to hand patient requested forms at scheduled appt on 06/25/24 with Tiera Spangler. Pt declined and stated she would be in [facility] on 06/20/24. [place]&ME nicole, Lokelma cards, and Lokelma prescription have been placed in an envelope in prescription box behind AVW2-2 behind check-out. Patient is to fill out page one of application and leave for Tiera. Please place completed application in Tiera's mailbox once completed by patient. *Patient plans to hot die picker packet 06/20/24 in the AM* Viola Vidal MA [facility] 06-18-2024 Miscellaneous Notes Spoke with pt, offered to hand patient requested forms at scheduled appt on 06/25/24 with Tiera Spangler. Pt declined and stated she would be in [facility] on 06/20/24. AZ&ME nicole, Lokelma cards, and Lokelma prescription have been placed in an envelope in prescription box behind AVW2-2 behind check-out. Patient is to fill out page one of application and leave for Tiera. Please place completed application in Tiera's mailbox once completed by patient. *Patient plans to hot die picker packet 06/20/24 in the AM* Viola [...] calling: self Call patient at: at home [phone] (home) [phone] (cell) Was an appointment scheduled: No Closing statement: Results or non-symptom based questions: Thank you for calling [facility], your call will be returned within the next business day. Lela Abdi documented in this encounter [facility] 06-18-2024 Telephone encounter Note Returned call [...] trial coupon to patient Tiera Spangler APRN.DORINA [facility] 06-18-2024 Telephone encounter Note Varsha is calling Tiera Spangler RD today with concern regarding Medication Assistance (LOKELMA). Pt states provider told her she would help try to get her a lower cost on LOKELMA. Please advise. Patient has been identified by name and birthdate. Duration of symptoms: N/A Person calling: self Call patient at: at home [phone] (home) [phone] (cell) Was an appointment scheduled: No Closing statement: Results or non-symptom based questions: Thank you for calling [facility], your call will be returned within the next business day. Lela Abdi [facility] 03-08-2024 Miscellaneous Notes Received labs Na [...] birthdate: Yes Call received from Erika from [facility] outpatient lab at 225 PM to report a critical value for BUN with a result of 90.0. Dr Headley was notified of the result at 0238PM. Liban Zuñiga RN documented in this encounter [facility] 02-14-2024 Miscellaneous Notes Placed lab order form for renal function panel in the outgoing mail as of 02/14/2024. Tahir Phoenix MA Called patient, kidney function is stable. Her digital marketing executive had wanted her to start sotagliflozin 200mg weekly in place of torsemide 20mg every other day. Reviewed with patient, we will need to monitor her kidney function with this switch. Plan to repeat labs in 2 weeks. Marylu Headley DO February 14, 2024, 2:18 PM documented in this encounter [facility] 02-13-2024 History of Presen t illness [...] echo on 03/24. She recently saw her digital marketing executive, he wanted her to take sotagliflozin as [...] lab work - reviewed labs and discussed DIGITAL LEARNING PLATFORMS MANAGER with patient, she reports she would be interested in DIGITAL LEARNING PLATFORMS MANAGER if needed, will get CKD education 2.) azotemia - no uremic signs or symptoms - Discussed avoiding nephrotoxins such as NSAIDs and IV iodinated contrast dye. 3) Hypertension: on the higher side, home bps look better - monitor for her, she is on multiple cardiac medications and reports her digital marketing executive would like to get her off of [...] from tosremide to sotagliflozin as per her digital marketing executive - monitor UA and UPCR 9) hyperkalemia - history of hyperkalemia - is on lokelma as K binder I spent a total of 40 minutes on the date of the service which included preparing to see the patient, ydjh-bj-qnqk patient care, completing clinical documentation, obtaining and/or reviewing separately obtained history, performing a medically appropriate examination, counseling and educating the patient/family/caregiver, and ordering medications, tests, or procedures. Follow up in 3 months, sooner prn. Marylu Headley DO documented in this encounter [facility] 02-13-2024 Note HNO ID: [id number] Author: DEITZER, MARYLU, DO Service: ? Author Type: Physician Type: [...] echo on 03/24. She recently saw her digital marketing executive, he wanted her to take sotagliflozin as [...] by mouth every other day. insulin lispro-aabc (MARISOL SHAHID) 100 unit/mL insulin [...] 01/10/2023 PTH 65 01/10/2023 DIABETES Lab Results [place] (more content not included)... [facility] 02-06-2024 Miscellaneous Notes Noted. Marylu Headley DO February 06, 2024, 12:40 PM Patient calling back Read message below Voiced understanding She feels great Will wait until next week/ will get lab work while at [facility]/Evie Transferred to scheduling to make lab [...] 2024, 10:31 AM documented in this encounter [facility] 02-06-2024 Miscellaneous Notes Received lab results from [facility]. Placed in provider mailbox for review. Viola Vidal MA documented in this encounter [facility] 12-26-2023 Note HNO ID: [id number] Author: TIERA SPANGLER APRN.WEDDING TRANSPORTATION DRIVER Service: ? Author Type: Nurse Practitioner Type: [...] labs DM-last A1C 8.9. She follows in [place], [place]. Continue endo follow up Plan No changes Labs prior to next follow up Has follow up in [address] Headley. Will keep appt and see me in 6 months Tiera Spangler APRN.WEDDING TRANSPORTATION DRIVER [facility] 11-15-2023 Miscellaneous Notes Contacted patient to advise her of the message below from Tiera Spangler APRN WEDDING TRANSPORTATION DRIVER. She agreed with plan as stated below and will mostly likely get it done today. Please remind patient she is due for nonfasting labs at [facility]. I sent order last week. EFE Mckeon documented in this encounter [facility] 11-06-2023 Miscellaneous Notes Took a call from Erika who works at [facility]. Erika was calling with some critical lab values for Tiera Spangler. Took the following message over phone: Critical BUN of 117. Patient in question was verified using full name and date of . Candace Veliz November 06, 2023 4:24 PM documented in this encounter [facility] 10-23-2023 Miscellaneous Notes I called the Medical Records department at [facility]. My call went to [employer]. I did not leave a message. I will try to call back @ [phone], Medical Records press 2, then 2. Akshat Schaeffer ----- Message from Tiera Spangler APRN.DORINA sent at 10/23/2023 8:57 AM EST ----- Please call [facility] and have repeat BUN and creatinine faxed over Tiera Spangler APRN.CNP documented in this encounter [facility] 10-10-2023 Miscellaneous Notes Called pt to review labs Results not fully available to me from outside lab Would like to review BUN 124 Any med changes? How is BP? No answer, LMTCB Tiera Spangler APRN.CNP Patient s identity has been confirmed by name and birthdate: Yes Call received from Lela at [facility] to report a critical value for BUN with a result of 124. Tiera Spangler APRN CNP was notified of the result at 2:46PM. Liban Zuñiga, RN documented in this encounter [facility] 10-09-2023 Miscellaneous Notes The requested document has been faxed to [phone] . Received a fax confirmation of OK on 10/09/23. Akshat Schaeffer Varsha Richa is calling Tiera Spangler APRN.WEDDING TRANSPORTATION DRIVER today needs labs ordered and faxed over to [facility]. F: [phone] No chief complaint on file. Patient has been identified by name and birthdate. Duration of symptoms: N/A Person calling: self Call patient at: at home [phone] (home) [phone] (cell) Was an appointment scheduled: No Closing statement: Results or non-symptom based questions: Thank you for calling [facility], your call will be returned within the next business day. Elva Beckford documented in this encounter [facility] 07-20-2023 Miscellaneous Notes That is fine Please send req for RFP in 1-2 weeks after starting increase Tiera Spanglre APRN.CNP Varsha Chaudhry is calling Tiera Spangler APRN.CNP today stating that her PCP wants to increase her kerendia from 10mg to 20 mg. Needs an ok from Tiera. Please give a call back. No chief complaint on file. Patient has been identified by name and birthdate. Duration of symptoms: N/A Person calling: self Call patient at: at home [phone] (home) [phone] (cell) Was an appointment scheduled: No Closing statement: Results or non-symptom based questions: Thank you for calling [facility], your call will be returned within the next business day. Elva Beckford documented in this encounter [facility] 06-13-2023 History of Presen t illness [...] DM-uncontrolled on last lab. She follows in [place], [place]. Continue endo follow up Plan Have labs faxed over from [facility] F/U 4 months Tiera Spangler APRN.WEDDING TRANSPORTATION DRIVER documented in this encounter [facility] 01-10-2023 Miscellaneous Notes Addended by: TIERA SPANGLER on: 01/10/2023 11:34 AM Modules accepted: Orders documented in this encounter [facility] 01-10-2023 History of Presen t illness Narrative Pt is a 77 yo female here for follow up of CKD stage 4 in the setting of proteinuria (non-nephrotic range), DM and HTN. Last OV 04/2022. Kayexalate powder restarted after that visit. Cardiology has changed it to hvwmebs-rlgoaqx-eml will run out. She has no new [...] home as well as here-she sees cardiology [id number] and her BPs are controlled there. Hyperkalemia-now [...] DM-uncontrolled on last lab. She follows in [place], [place]. Last A1C 8.5-continue endo follow up Heme-Hgb WNL Plan Labs Continue lokelma 10gm daily 30 day free coupon given to augment samples She will let me know if cardiology cannot sample-may need to go to specialty pharmacy F/U 4 months Tiera Spangler APRN.WEDDING TRANSPORTATION DRIVER documented in this encounter [facility] 05-17-2022 Miscellaneous Notes Received a page from lab at [place] regarding critical lab results. Critical Glucose of [...] 2022, 1:16 PM documented in this encounter [facility] 05-04-2022 Miscellaneous Notes The requested document has been faxed to [phone]. Received a fax confirmation of OK on [...] Tiera Spangler APRN.DORINA documented in this encounter [facility] 05-03-2022 History of Presen t illness [...] labs. HTN-well controlled at home-she sees cardiology [id number] and her BPs are controlled there. Rydfgumxhvdd-ozdgyozsxadg-uy longer on treatment. Didn't tolerate veltassa and avoiding lokelma given CHF-update labs Vitamin D deficiency-on supplement 4000U D 3-update labs DM-uncontrolled on last lab. She follows in [place], [place]. Last A1C 8.9-continue endo follow up Plan Labs Cardiology has sent lab request for add ons Will have faxed to Dr Norton [phone] F/U 4 months Tiera Spangler APRN.WEDDING TRANSPORTATION DRIVER documented in this encounter [facility] Evaluation + Plan note Future Appointments Appointment Date:07/17/2024 10:45:00 AM Scheduled Provider:Lasha Mackenzie DPM [facility] Appointment Type: Follow Up Visit (FT) [facility] Evaluation + Plan note Future Appointments Appointment Date:07/24/2024 09:15:00 AM Scheduled Provider:Lasha Mackenzie DPM [facility] Appointment Type:[facility] Follow Up Visit (FT) [facility] Evaluation + Plan note Future Appointments Appointment Date:07/31/2024 11:00:00 AM Scheduled Provider:Lasha Mackenzie DPM [facility] Appointment Type: Follow Up Visit (FT) [facility] Evaluation note Diagnosis Benign hypertension with chronic kidney disease, stage IV (HCC)- Primary Benign hypertensive kidney disease with chronic kidney disease stage I through stage IV, or unspecified CKD (chronic kidney disease) stage 4, GFR 15-29 ml/min (HCC) Chronic kidney disease, Stage IV (severe) Proteinuria, unspecified type Hyperkalemia Hyperpotassemia 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, unspecified whether halfway insulin use (HCC) Vitamin D deficiency Unspecified vitamin D deficiency Chronic combined systolic and diastolic congestive heart failure (HCC) Chronic combined systolic and diastolic heart failure [facility] Diagnosis Benign hypertension with chronic kidney disease, stage IV (HCC)- Primary Benign hypertensive kidney disease with chronic kidney disease stage I through stage IV, or unspecified CKD (chronic kidney disease) stage 4, GFR 15-29 ml/min (HCC) Chronic kidney disease, Stage IV (severe) Proteinuria, unspecified type Hyperkalemia Hyperpotassemia 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, unspecified whether email marketing assistant insulin use (HCC) Vitamin D deficiency Unspecified vitamin D deficiency [facility]* Diagnosis Benign hypertension with chronic kidney disease, stage IV (HCC)- Primary Benign hypertensive kidney disease with chronic kidney disease stage I through stage IV, or unspecified CKD (chronic kidney disease) stage 4, GFR 15-29 ml/min (HCC) Chronic kidney disease, Stage IV (severe) Proteinuria, unspecified type Hyperkalemia Hyperpotassemia 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, unspecified whether email marketing assistant insulin use (HCC) documented in this encounter [facility] note* Diagnosis Benign hypertension with chronic kidney disease, stage IV (HCC)- Primary Benign hypertensive kidney disease with chronic kidney disease stage I through stage IV, or unspecified documented in this encounter [facility] note* Diagnosis CKD (chronic kidney disease) stage [...] chemistry Hyperkalemia Hyperpotassemia [facility] noteNo assessment information availableKettering Health [facility] Work Phone: Evaluation note* Diagnosis CKD (chronic kidney disease) stage 4, GFR 15-29 ml/min (HCC)- Primary Chronic kidney disease, Stage IV (severe) Proteinuria, unspecified type 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, with long-term current use of insulin ([facility]) Benign hypertension with chronic kidney disease, stage IV (HCC) Benign hypertensive kidney disease with chronic kidney disease stage I through stage IV, or unspecified Hyperkalemia Hyperpotassemia Vitamin D deficiency Unspecified vitamin D deficiency [facility] Diagnosis Hyperkalemia- Primary Hyperpotassemia [facility]* Diagnosis CKD (chronic kidney disease) stage 4, GFR 15-29 ml/min ([facility])- Primary Chronic kidney disease, Stage IV (severe) [facility]* Diagnosis Acquired deformity of right toe- Primary Foot ulcer, right, with fat layer exposed ([facility]) Type 2 diabetes mellitus with diabetic neuropathy, with long-term current use of insulin ([facility]) Pain due to onychomycosis of toenails of both feet Foot ulceration, right, with fat layer exposed ([facility]) [facility] Diagnosis Diabetic peripheral neuropathy associated with type 2 diabetes mellitus ([facility])- Primary 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, with long-term current use of insulin ([facility]) barrel polisher inside current use of insulin ([facility]) Hypoglycemia due to type 2 diabetes mellitus ([facility]) Type 2 diabetes mellitus without complication, with long-term current use of insulin ([facility]) Type 2 diabetes mellitus with peripheral neuropathy ([facility])- Primary 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, with long-term current use of insulin ([facility]) Class 2 severe obesity due to excess calories with serious comorbidity and body mass index (BMI) of 36.0 to 36.9 in adult ([facility])- Primary Type 2 diabetes mellitus with peripheral neuropathy ([facility]) 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, with long-term current use of insulin ([facility]) Type 2 diabetes mellitus with hypoglycemia without coma, with long-term current use of insulin ([facility]) Type 2 diabetes mellitus with peripheral neuropathy ([facility])- Primary 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, with long-term current use of insulin ([facility]) Type 2 diabetes mellitus with hypoglycemia without coma, with long-term current use of insulin ([facility]) Class 2 severe obesity due to excess calories with serious comorbidity and body mass index (BMI) of 37.0 to 37.9 in adult ([facility]) Type 2 diabetes mellitus with peripheral neuropathy ([facility])- Primary 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, with long-term current use of insulin ([facility]) Type 2 diabetes mellitus with hypoglycemia without coma, with long-term current use of insulin ([facility]) Class 2 severe obesity due to excess calories with serious comorbidity and body mass index (BMI) of 38.0 to 38.9 in adult ([facility]) Type 2 diabetes mellitus with hyperglycemia, with long-term current use of insulin ([facility]) Type 2 diabetes mellitus with diabetic neuropathy, with long-term current use of insulin ([facility])- Primary Foot ulcer, right, with fat layer exposed ([facility]) Acquired deformity of right toe documented in this encounter [facility] HealthcareEvaluation note* Diagnosis Diabetic peripheral neuropathy associated with type 2 diabetes mellitus ([facility])- Primary 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, with long-term current use of insulin ([facility]) barrel polisher inside current use of insulin ([facility]) Hypoglycemia due to type 2 diabetes mellitus ([facility]) Type 2 diabetes mellitus without complication, with long-term current use of insulin ([facility]) Type 2 diabetes mellitus with peripheral neuropathy ([facility])- Primary 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, with long-term current use of insulin ([facility]) Class 2 severe obesity due to excess calories with serious comorbidity and body mass index (BMI) of 36.0 to 36.9 in adult ([facility])- Primary Type 2 diabetes mellitus with peripheral neuropathy ([facility]) 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, with long-term current use of insulin ([facility]) Type 2 diabetes mellitus with hypoglycemia without coma, with long-term current use of insulin ([facility]) Type 2 diabetes mellitus with peripheral neuropathy ([facility])- Primary 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, with long-term current use of insulin ([facility]) Type 2 diabetes mellitus with hypoglycemia without coma, with long-term current use of insulin ([facility]) Class 2 severe obesity due to excess calories with serious comorbidity and body mass index (BMI) of 37.0 to 37.9 in adult ([facility]) Type 2 diabetes mellitus with peripheral neuropathy ([facility])- Primary 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, with long-term current use of insulin ([facility]) Type 2 diabetes mellitus with hypoglycemia without coma, with long-term current use of insulin ([facility]) Class 2 severe obesity due to excess calories with serious comorbidity and body mass index (BMI) of 38.0 to 38.9 in adult ([facility]) Type 2 diabetes mellitus with hyperglycemia, with long-term current use of insulin ([facility]) Osteomyelitis of ankle or foot, acute, right ([facility])- Primary Type 2 diabetes mellitus with diabetic neuropathy, with long-term current use of insulin ([facility]) Foot ulcer, right, with fat layer exposed ([facility]) Acquired deformity of right toe [facility] Narrative No data available for this section [facility] Discharge instructions Additional Instructions DISCHARGE INSTRUCTIONS [...] operative site FOLLOW UP Phone numbers: Office [phone] [ ][facility] Work Phone: Hospital Discharge instructions No data available for this section [facility] Progress note No data available for this section [facility] Summary Purpose Family History No Family History [...] or prosecute any alcohol or drug abuse patient.[facility] the event this information is protected by the Federal Confidentiality of Alcohol and Drug Abuse Patient Records regulations: The Federal rules restrict any use of the information to criminally investigate or prosecute any alcohol or drug abuse patient.[facility] the event this information is protected by the Federal Confidentiality of Alcohol and Drug Abuse Patient Records regulations: The Federal rules restrict any use of the information to criminally investigate or prosecute any alcohol or drug abuse patient.[facility] the event this information is protected by the Federal Confidentiality of Alcohol and Drug Abuse Patient Records regulations: The Federal rules restrict any use of the information to criminally investigate or prosecute any alcohol or drug abuse patient.[facility] the event this information is protected by the Federal Confidentiality of Alcohol and Drug Abuse Patient Records regulations: The Federal rules restrict any use of the information to criminally investigate or prosecute any alcohol or drug abuse patient.[facility] the event this information is protected by the Federal Confidentiality of Alcohol and Drug Abuse Patient Records regulations: The Federal rules restrict any use of the information to criminally investigate or prosecute any alcohol or drug abuse patient.[facility] the event this information is protected by the Federal Confidentiality of Alcohol and Drug Abuse Patient Records regulations: The Federal rules restrict any use of the information to criminally investigate or prosecute any alcohol or drug abuse patient.[facility] the event this information is protected by the Federal Confidentiality of Alcohol and Drug Abuse Patient Records regulations: The Federal rules restrict any use of the information to criminally investigate or prosecute any alcohol or drug abuse patient.[facility] the event this information is protected by the Federal Confidentiality of Alcohol and Drug Abuse Patient Records regulations: The Federal rules restrict any use of the information to criminally investigate or prosecute any alcohol or drug abuse patient.[facility] the event this information is protected by the Federal Confidentiality of Alcohol and Drug Abuse Patient Records regulations: The Federal rules restrict any use of the information to criminally investigate or prosecute any alcohol or drug abuse patient.[facility] the event this information is protected by the Federal Confidentiality of Alcohol and Drug Abuse Patient Records regulations: The Federal rules restrict any use of the information to criminally investigate or prosecute any alcohol or drug abuse patient.[facility] the event this information is protected by the Federal Confidentiality of Alcohol and Drug Abuse Patient Records regulations: The Federal rules restrict any use of the information to criminally investigate or prosecute any alcohol or drug abuse patient.[facility] the event this information is protected by the Federal Confidentiality of Alcohol and Drug Abuse Patient Records regulations: The Federal rules restrict any use of the information to criminally investigate or prosecute any alcohol or drug abuse patient.[facility] Hospital[facility] the event this information is protected by the Federal Confidentiality of Alcohol and Drug Abuse Patient Records regulations: The Federal rules restrict any use of the information to criminally investigate or prosecute any alcohol or drug abuse patient.[facility] Hospital[facility] the event this information is protected by the Federal Confidentiality of Alcohol and Drug Abuse Patient Records regulations: The Federal rules restrict any use of the information to criminally investigate or prosecute any alcohol or drug abuse patient.[facility] Hospital[facility] the event this information is protected by the Federal Confidentiality of Alcohol and Drug Abuse Patient Records regulations: The Federal rules restrict any use of the information to criminally investigate or prosecute any alcohol or drug abuse patient.[facility] the event this information is protected by the Federal Confidentiality of Alcohol and Drug Abuse Patient Records regulations: The Federal rules restrict any use of the information to criminally investigate or prosecute any alcohol or drug abuse patient.[facility] HospitalIn the event this information is protected by the Federal Confidentiality of Alcohol and Drug Abuse Patient Records regulations: The Federal rules restrict any use of the information to criminally investigate or prosecute any alcohol or drug abuse patient.[facility] HospitalIn the event this information is protected by the Federal Confidentiality of Alcohol and Drug Abuse Patient Records regulations: The Federal rules restrict any use of the information to criminally investigate or prosecute any alcohol or drug abuse patient.[facility] HospitalIn the event this information is protected by the Federal Confidentiality of Alcohol and Drug Abuse Patient Records regulations: The Federal rules restrict any use of the information to criminally investigate or prosecute any alcohol or drug abuse patient.[facility] HospitalIn the event this information is protected by the Federal Confidentiality of Alcohol and Drug Abuse Patient Records regulations: The Federal rules restrict any use of the information to criminally investigate or prosecute any alcohol or drug abuse patient.[facility] HospitalIn the event this information is protected by the Federal Confidentiality of Alcohol and Drug Abuse Patient Records regulations: The Federal rules restrict any use of the information to criminally investigate or prosecute any alcohol or drug abuse patient.[facility] Reason for Visit (unrecogniz ed section [...] Reason Comments Foot Ulcer Rt ft ulcer Reason Comments Foot Ulcer Left gt toe ulcer Care Teams (unrecognized sec tion and content) Leaf Tier Relationship Specialty Start Date End Date Tiera Spangler, FARM CROPS TEACHER.[employer] [address], [place] [id number] Primary Staff Physician Nephrology 12/23/21 Leaf Tier Relationship Specialty Start Date End Date Tiera Spangler, FARM CROPS TEACHER.[employer] [address], [place] [id number] Primary Staff Physician Nephrology 12/23/21 Leaf Tier Relationship Specialty Start Date End Date Tiera Spangler, FARM CROPS TEACHER.[employer] [address], [place] [id number] Primary Staff Physician Nephrology 12/23/21 Leaf Tier Relationship Specialty Start Date End Date Tiera Spangler FARM CROPS TEACHER.[employer] [address], [place] [id number] Primary Staff Physician Nephrology 12/23/21 Leaf Tier Relationship Specialty Start Date End Date Tiera Spangler FARM CROPS TEACHER.[employer] [address] [place] [address] Primary Staff Physician Nephrology 12/23/21 Leaf Tier Relationship Specialty Start Date End Date Tiera Spangler FARM CROPS TEACHER.[employer] [address], [place] [id number] Primary Staff Physician Nephrology 12/23/21 Leaf Tier Relationship Specialty Start Date End Date Tiera Spangler, FARM CROPS TEACHER.[employer] [address] [place] [address] Primary Staff Physician Nephrology 12/23/21 Leaf Tier Relationship Specialty Start Date End Date Tiera Spangler FARM CROPS TEACHER.[employer] [address], [place] [id number] Primary Staff Physician Nephrology 12/23/21 Leaf Tier Relationship Specialty Start Date End Date Tiera Spangler FARM CROPS TEACHER.[employer] [address] [place] [address] Primary Staff Physician Nephrology 12/23/21 Leaf Tier Relationship Specialty Start Date End Date Tiera Spangler FARM CROPS TEACHER.[employer] [address], [place] [id number] Primary Staff Physician Nephrology 12/23/21 Leaf Tier Relationship Specialty Start Date End Date Tiera Spangler FARM CROPS TEACHER.[employer] [address], [place] [id number] Primary Staff Physician Nephrology 12/23/21 Team Status: Active Member Role Status Dates Ken Norton JR DO Primary Care Provider Active Team Status: Inactive Member Role Status Dates Edgard Abdi DPM Attending Provider Active Start: May 03, 2024 End: May 03, 2024 Ken Norton JR DO Primary Care Provider Active Start: May 03, 2024 End: May 03, 2024 Leaf Tier Relationship Specialty Start Date End Date Tiera Spangler FARM CROPS TEACHER.[employer] [address], [place] [id number] Primary Staff Physician Nephrology 12/23/21 Leaf Tier Relationship Specialty Start Date End Date Tiera Spangler FARM CROPS TEACHER.[employer] [address], [place] [id number] Primary Staff Physician Nephrology 12/23/21 Leaf Tier Relationship Specialty Start Date End Date Tiera Spangler APRN.CNP [address] [place] [address] Primary Staff Physician Nephrology 12/23/21 Leaf Tier Relationship Specialty Start Date End Date Ken Norton MD [facility] [place] [address] PCP - General Internal Medicine 05/11/23 Fartun Skinner DO [address] [place] [address], [place] [address] Referring Physician Family Medicine 05/11/23 Leaf Tier Relationship Specialty Start Date End Date Ken Norton MD [address] [place] [address], [place] [address] PCP - General Internal Medicine 05/11/23 Fartun Skinner DO [address] [place] [address], [place] [address] Referring Physician Family Medicine 05/11/23 Leaf Tier Relationship Specialty Start Date End Date Ken Norton MD [facility] [place] [address] PCP - General Internal Medicine 05/11/[address] [facility] [place] [address] Referring Physician Family Medicine 05/11/23 Leaf Tier Relationship Specialty Start Date End Date Ken Norton MD [address] [place] [address], [place] [address] PCP - General Internal Medicine 05/11/[address] [facility] [place] [address] Referring Physician Family Medicine 05/11/23 Leaf Tier Relationship Specialty Start Date End Date Ken Norton MD [facility] [place] [address] PCP - General Internal Medicine 05/11/[address] [facility] [place] [address] Referring Physician Family Medicine 05/11/23 INFORMATION SOURCE (unrecogn ized section and content) DATE CREATED AUTHOR 05/05/2023 [facility] DATE CREATED AUTHOR AUTHOR'S ORGANIZ ATION 05/11/2024 [facility] DATE CREATED AUTHOR AUTHOR'S ORGANIZ ATION 07/25/2024 [facility] DATE CREATED AUTHOR AUTHOR'S ORGANIZ ATION 08/01/2024 [facility] DATE CREATED AUTHOR AUTHOR'S ORGANIZ ATION 08/18/2024 [facility] DATE CREATED AUTHOR AUTHOR'S ORGANIZ ATION 09/28/2024 [facility] FOR RECORDS PERTAINING TO PATIENTS WHO ARE [...] BE BASED ON THE PRIMARY CLINICAL RECORDS. [employer] provides no warranty or guarantee of the accuracy or completeness of information in this document.
== END 2024-10-11 10:36 | disposition home or self-care (01) ==
LOC: NM 10:36
PROVIDERS: PCP Internal Medicine
DX: M86.171 Other acute osteomyelitis, right ankle and foot (principal)
CPT/HCPCS: 78315; A9503

== ENCOUNTER 2024-10-23 21:49 | Emergency (ER) | payer MEDICARE, SELFPAY ==
[2024-10-23] VITALS (19 sets, daily range): BP systolic 132–240; BP diastolic 61–106; PULSE 65–150; TEMP 36.4; O2SAT 87–97; BMI 32.6
--- NOTE | 2024-10-23 21:36 | XR_ITS ---
The [address] [address] Patient Name: ANAY NIEVES MRN: [id number] date: 1945 Sex: F Assigned Patient Location: ER Current Patient Location: ER Accession/Order Number: [id number] Exam Date: 10/23/2024 21:55 Report Date: 10/23/2024 23:29 At the request of: ANTHONY MARKER Procedure: XR chest 1V EXAM: XR chest 1V HISTORY: syncope COMPARISON: Chest x-ray, 03/25/2023. TECHNIQUE: AP upright portable chest x-ray. FINDINGS: The heart is mildly enlarged. Pulmonary vascularity is normal. Aortic arch calcifications are unchanged. There is mild right basilar atelectasis or less likely infiltrate. The lungs appear otherwise clear. No new osseous abnormality is seen. XR/XR chest 1V IMPRESSION: Mild cardiomegaly with mild right basilar atelectasis or less likely infiltrate. The lungs appear otherwise clear. Electronically authenticated by: MADDISON TAY Date: 10/23/2024 23:29
--- NOTE | 2024-10-23 21:36 | CT_ITS ---
[address] [address] Patient Name: ANAY NIEVES MRN: [facility]:[id number] date: 1945 Sex: F Assigned Patient Location: ER Current Patient Location: ER Accession/Order Number: [id number] Exam Date: 10/23/2024 21:55 Report Date: 10/23/2024 23:27 At the request of: ANTHONY GAO Procedure: CT head/brain wo con EXAM: CT head/brain wo con HISTORY: Fall with head injury. TECHNIQUE: Axial CT scans through the head were obtained without IV contrast administration. Dose reduction techniques were achieved by using: automated exposure control and/or adjustment of mA and /or kV according to patient size and/or the use of an iterative reconstruction technique. COMPARISON: 11/04/2022. FINDINGS: Mild periventricular low attenuation in the cerebral hemispheres without associated mass effect. To the limit of CT, the posterior fossa appears unremarkable. A tiny left parafalcine acute subdural hematoma with a greatest thickness of 2 mm at the level of the frontal lobe is present. A small amount of acute subarachnoid hemorrhage in the base of the anterior cranial fossa, specifically along the cribriform plate and the right and left olfactory sulci. No depressed skull fracture is present. The ventricular system and cortical sulci are prominent. No area of abnormal mass effect is shown. The visualized orbits show no gross mass. The visualized paranasal sinuses show no air-fluid levels. Mastoid air cells are clear. Mild posterior midline parietal scalp contusion. CT/CT head/brain wo con IMPRESSION: 1. A tiny left parafalcine acute subdural hematoma with a greatest thickness of 2 mm at the level of the frontal lobe is present. A small amount of acute subarachnoid hemorrhage in the base of the anterior cranial fossa, specifically along the cribriform plate and the right and left olfactory sulci. Mild posterior midline parietal scalp contusion. 2. Mild old microvascular ischemic changes. Age-related cerebral volume loss. Dr. Gao was notified of critical results by myself at 11:15 PM. Electronically authenticated by: VIKY MOON Date: 10/23/2024 23:27
--- NOTE | 2024-10-23 21:37 | CT_ITS ---
The [address] [address] Patient Name: ANAY NIEVES MRN: [facility]:[id number] date: 1945 Sex: F Assigned Patient Location: ER Current Patient Location: ER Accession/Order Number: [id number] Exam Date: 10/23/2024 21:55 Report Date: 10/23/2024 23:12 At the request of: ANTHONY MARKER Procedure: CT cervical spine wo con EXAM: CT cervical spine wo con HISTORY: seizure COMPARISON: None. TECHNIQUE: Nonenhanced CT imaging of the head was performed with sagittal and coronal reconstructions. Dose reduction techniques were achieved by using automated exposure control and/or adjustment of mA and/or kV according to patient size and/or use of iterative reconstruction technique. FINDINGS: No acute osseous or articular abnormality is seen. The cervical vertebral bodies are normal in height and alignment. 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 Skull base alignment is normal. The articular facets are normally aligned. There is mild left neural foraminal stenosis at C6-C7. Remaining neural foramina are widely patent. No spinal canal stenosis is seen. Imaged portions of the sphenoid sinuses and bilateral mastoid air cells are clear. Bilateral carotid arterial calcifications are noted. CT/CT cervical spine wo con IMPRESSION: No acute cervical spine findings. Chronic changes are described above. Electronically authenticated by: MADDISON TAY Date: 10/23/2024 23:12
[2024-10-23] MEDS: 0.9 % SODIUM CHLORIDE 1,000 ML 1000 ML IV (21:44)
[2024-10-23] MEDS: ONDANSETRON PF 4 MG/2 ML VIAL IV (21:45)
--- NOTE | 2024-10-23 21:47 | ED.SYNCOPE1 ---
HPI - Syncope General Chief Complaint: Syncope Stated Complaint: FALL HEAD INJURY Time Seen by Provider: 10/23/24 21:57 History of Present Illness HPI narrative: This 79-year-old female is brought to emergency department by EMS. The patient had a syncopal event at home and fell backwards striking her head. EMS was called and upon their arrival she was awake and alert but then became briefly unresponsive. According to EMS they could not feel a pulse and did CPR for several seconds and then she returned to a normal level of consciousness. She had an additional episode of vomiting while in the squad and was briefly unresponsive during that time. Upon arrival she is awake alert. She does not remember falling. She was nauseated and had several episodes of emesis upon arrival. She states she was feeling fine earlier today. She does not have any head pain neck pain or focal neurologic symptoms. She denies any chest pain or shortness of breath. She is diabetic. She admits to a history of heart disease and kidney disease but she is not on dialysis. The patient's arrived shortly after she did and states that he was in another room when he heard a loud sound in another room and went and found her on the floor. He states she was dazed but not unresponsive. He put a pillow under her head and propped her up and called EMS. He was there when EMS arrived and the patient passed out. Related Data Home Medications ?Medication ?Instructions ?Recorded ?Confirmed aspirin 81 mg tablet,delayed 81 mg PO DAILY 11/21/23 10/23/24 release biotin 10,000 mcg capsule 10,000 mcg PO DAILY 11/21/23 11/21/23 carvedilol 25 mg tablet 25 mg PO BID 11/21/23 11/21/23 finerenone 10 mg tablet (Kerendia) 10 mg PO DAILY 11/21/23 11/21/23 insulin glargine 100 unit/mL (3 16 unit subcut DAILY 11/21/23 10/23/24 mL) subcutaneous pen (Lantus Solostar U-100 Insulin) insulin lispro-aabc 100 unit/mL 15 unit subcut TID 11/21/23 11/21/23 subcutaneous pen (Lyumjev KwikPen U-100 Insulin) magnesium oxide 500 mg capsule 500 mg PO DAILY 11/21/23 11/21/23 montelukast 10 mg tablet 10 mg PO DAILY 11/21/23 10/23/24 rosuvastatin 10 mg tablet 10 mg PO DAILY 11/21/23 10/23/24 sacubitril 97 mg-valsartan 103 mg 1 tab PO BID 11/21/23 10/23/24 tablet (Entresto) sodium zirconium cyclosilicate 10 10 g PO DAILY 11/21/23 11/21/23 gram oral powder packet (Lokelma) Vitamin D 3 4,000 units PO DAILY 10/23/24 10/23/24 carvedilol 25 mg tablet (Coreg) 25 mg PO BID 10/23/24 10/23/24 furosemide 20 mg tablet (Lasix) 20 mg PO DAILY 10/23/24 10/23/24 humalog subcut TID 10/23/24 sodium polystyrene sulfonate 20 ml PO .3 times a week 10/23/24 10/23/24 sodium zirconium cyclosilicate 10 10 g PO .3 times a week 10/23/24 10/23/24 gram oral powder packet (Lokelma) Allergies Allergy/AdvReac Type Severity Reaction Status Date / Time Penicillins Allergy Severe Hives Verified 10/23/24 21:48 Tylenol 3 Allergy Unknown Unknown Uncoded 10/23/24 21:48 Review of Systems ROS Status of ROS 10 or more systems reviewed and unremarkable except as noted in history and below [facility] Medical History (Updated 10/24/24 @ 01:37 by Annemarie Nieto MD) Hyperlipidemia ?E78.5 - Hyperlipidemia, unspecified (ICD-10) CKD (chronic kidney disease) stage 4, GFR 15-29 ml/min ?N18.4 - Chronic kidney disease, stage 4 (severe) (ICD-10) End stage kidney disease ?N18.6 - End stage renal disease (ICD-10) Hypertension ?I10 - Essential (primary) hypertension (ICD-10) Hernia of abdominal wall ?K43.9 - Ventral hernia without obstruction or gangrene (ICD-10) Diabetes ?E11.9 - Type 2 diabetes mellitus without complications (ICD-10) Surgical History (Updated 11/21/23 @ 20:55 by Liv Nevarez RN) History of appendectomy ?Z90.49 - Acquired absence of other specified parts of digestive tract (ICD-10) History of hysterectomy ?Z90.710 - Acquired absence of both cervix and uterus (ICD-10) Family History (Updated 11/21/23 @ 20:57 by Liv Nevarez RN) Mother Family history of CHF (congestive heart failure) Family history of hypertension Family history of myocardial infarction Father Family history of CHF (congestive heart failure) Family history of diabetes mellitus Family history of myocardial infarction Social History (Updated 11/21/23 @ 20:59 by Liv Nevarez RN) Within the past year, how often did you have a drink containing alcohol: never Within the past year, how often did you have six or more drinks on one occasion: never Score interpretation: A score less than 3 is consistent with normal alcohol consumption. 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 Known occupational exposures/hazards: No Highest level of school completed/degree received: high school graduate Are you now , , , , never or living with a partner: In a typical week, how many times do you talk on the telephone with family, friends, or neighbors: once per week How often do you get together with friends or relatives: once per week How often do you attend mormonism or bahai services: 4 or more times per year Do you belong to any clubs or organizations such as mormonism groups unions, fraternal or athletic groups, or school groups: no Total score: 2 Score interpretation: A score of greater than or equal to 2 indicates the lowest level of social isolation. Little interest or pleasure in doing things: not at all Feeling down, depressed, or hopeless: not at all Feel stressed/tense/nervous/anxious/difficulty sleeping: not at all Gender Identity: female Exam Narrative Exam Narrative: Vital signs and Nursing Notes reviewed: Initial blood pressure was markedly elevated at 222/92 and pulse was elevated at 150, she is borderline hypoxic with pulse ox of 93% on room air, she is afebrile General: Awake, alert, somewhat disoriented to recent events, actively vomiting upon arrival -GCS 15 HEENT: Normocephalic, 3 x 3 cm hematoma to the left posterior occipital area Neck: Supple, no midline bony vertebral tenderness or step-off Chest: Lungs are clear to auscultation with good air entry, there is no wheezing rhonchi or rales appreciated no accessory muscle use, patient is speaking in complete sentences-no chest wall tenderness to palpation CVS: Tachycardic with ectopic beats, pulses are brisk and equal in the upper and lower extremities ABD: Soft, nondistended, nontender, no rebound guarding or rigidity, bowel sounds are normal, no pulsatile masses appreciated Extremities: Moving all extremities, no lower extremity injury noted, there is an ulcer on the base of the right great toe Skin: Pale, diaphoretic Neuro: No focal deficits, speech is clear, 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, Constitutional Vital Signs, click to edit/add: Last Vital Signs Temp 97.6 F 10/23/24 21:36 Pulse 108 H 10/24/24 01:20 Resp 17 10/24/24 01:20 BP 165/69 H 10/24/24 01:01 Pulse Ox 96 10/24/24 01:20 O2 Del Method Room Air 10/23/24 23:10 O2 Flow Rate 2.5 10/23/24 23:10 FiO2 95 10/23/24 23:10 Course Vital Signs Vital signs: Vital Signs Temperature 97.6 F 10/23/24 21:36 Pulse Rate 150 H 10/23/24 21:36 Respiratory Rate 20 10/23/24 21:36 Blood Pressure 222/92 H 10/23/24 21:36 Pulse Oximetry 93 L 10/23/24 21:36 Oxygen Delivery Method Room Air 10/23/24 21:36 Temperature 97.6 F 10/23/24 21:36 Pulse Rate 108 H 10/24/24 01:20 Respiratory Rate 17 10/24/24 01:20 Blood Pressure 165/69 H 10/24/24 01:01 Pulse Oximetry 96 10/24/24 01:20 Oxygen Delivery Method Room Air 10/23/24 23:10 Oxygen Delivery Flow Rate 2.5 10/23/24 23:10 Fraction of Inspired Oxygen 95 10/23/24 23:10 MDM - Syncope MDM Narrative Medical decision making narrative: [place] [address] CT Scan Report Signed Patient: ANAY NIEVES MR#: [id number] : 1945 Acct:[id number] Age/Sex: 79 / F ADM Date: 10/23/24 Loc: ER Attending Dr: Ordering Physician: Annemarie Nieto Date of Service: 10/23/24 Procedure(s): CT head/brain wo con Accession Number(s): [id number] cc: ISSA NORTON D.O.~ [facility] [place] [id number] Patient Name: ANAY NIEVES MRN: [id number] date: 1945 Sex: F Assigned Patient Location: ER Current Patient Location: ER Accession/Order Number: [id number] Exam Date: 10/23/2024 21:55 Report Date: 10/23/2024 23:27 At the request of: ANNEMARIE NIETO Procedure: CT head/brain wo con EXAM: CT head/brain wo con HISTORY: Fall with head injury. TECHNIQUE: Axial CT scans through the head were obtained without IV contrast administration. Dose reduction techniques were achieved by using: automated exposure control and/or adjustment of mA and /or kV according to patient size and/or the use of an iterative reconstruction technique. COMPARISON: 11/04/2022. FINDINGS: Mild periventricular low attenuation in the cerebral hemispheres without associated mass effect. To the limit of CT, the posterior fossa appears unremarkable. A tiny left parafalcine acute subdural hematoma with a greatest thickness of 2 mm at the level of the frontal lobe is present. A small amount of acute subarachnoid hemorrhage in the base of the anterior cranial fossa, specifically along the cribriform plate and the right and left olfactory sulci. No depressed skull fracture is present. The ventricular system and cortical sulci are prominent. No area of abnormal mass effect is shown. The visualized orbits show no gross mass. The visualized paranasal sinuses show no air-fluid levels. Mastoid air cells are clear. Mild posterior midline parietal scalp contusion. CT/CT head/brain wo con IMPRESSION: 1. A tiny left parafalcine acute subdural hematoma with a greatest thickness of 2 mm at the level of the frontal lobe is present. A small amount of acute subarachnoid hemorrhage in the base of the anterior cranial fossa, specifically along the cribriform plate and the right and left olfactory sulci. Mild posterior midline parietal scalp contusion. 2. Mild old microvascular ischemic changes. Age-related cerebral volume loss. Dr. Nieto was notified of critical results by myself at 11:15 PM. Electronically authenticated by: VIKY MOON Date: 10/23/2024 23:[address] [address] [address] Scan Report Signed Patient: ANAY NIEVES MR#: [id number] : 1945 Acct:[id number] Age/Sex: 79 / F ADM Date: 10/23/24 Loc: ER Attending Dr: Ordering Physician: Annemarie Nieto Date of Service: 10/23/24 Procedure(s): CT cervical spine wo con Accession Number(s): [id number] cc: ISSA NORTON D.O.~ [facility] [place] [address] Patient Name: ANAY NIEVES MRN: [id number] date: 1945 Sex: F Assigned Patient Location: ER Current Patient Location: ER Accession/Order Number: [id number] Exam Date: 10/23/2024 21:55 Report Date: 10/23/2024 23:12 At the request of: ANNEMARIE NIETO Procedure: CT cervical spine wo con EXAM: CT cervical spine wo con HISTORY: seizure COMPARISON: None. TECHNIQUE: Nonenhanced CT imaging of the head was performed with sagittal and coronal reconstructions. Dose reduction techniques were achieved by using automated exposure control and/or adjustment of mA and/or kV according to patient size and/or use of iterative reconstruction technique. FINDINGS: No acute osseous or articular abnormality is seen. The cervical vertebral bodies are normal in height and alignment. 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 Skull base alignment is normal. The articular facets are normally aligned. There is mild left neural foraminal stenosis at C6-C7. Remaining neural foramina are widely patent. No spinal canal stenosis is seen. Imaged portions of the sphenoid sinuses and bilateral mastoid air cells are clear. Bilateral carotid arterial calcifications are noted. CT/CT cervical spine wo con IMPRESSION: No acute cervical spine findings. Chronic changes are described above. Electronically authenticated by: MADDISON TAY Date: 10/23/2024 23:[address] [address] XRay Report Signed Patient: ANAY NIEVES MR#: [id number] : 1945 Acct:[id number] Age/Sex: 79 / F ADM Date: 10/23/24 Loc: ER Attending Dr: Ordering Physician: Annemarie Nieto Date of Service: 10/23/24 Procedure(s): XR chest 1V Accession Number(s): [id number] cc: Annemarie Nieto; ISSA NORTON D.O.~ [facility] [place] [id number] Patient Name: ANAY NIEVES MRN: [facility]:[id number] date: 1945 Sex: F Assigned Patient Location: ER Current Patient Location: ER Accession/Order Number: [id number] Exam Date: 10/23/2024 21:55 Report Date: 10/23/2024 23:29 At the request of: ANNEMARIE NIETO Procedure: XR chest 1V EXAM: XR chest 1V HISTORY: syncope COMPARISON: Chest x-ray, 03/25/2023. TECHNIQUE: AP upright portable chest x-ray. FINDINGS: The heart is mildly enlarged. Pulmonary vascularity is normal. Aortic arch calcifications are unchanged. There is mild right basilar atelectasis or less likely infiltrate. The lungs appear otherwise clear. No new osseous abnormality is seen. XR/XR chest 1V IMPRESSION: Mild cardiomegaly with mild right basilar atelectasis or less likely infiltrate. The lungs appear otherwise clear. Electronically authenticated by: MADDISON TAY Date: 10/23/2024 23:29 This 79-year-old female with a history of diabetes, hypertension, coronary artery disease and chronic renal disease is brought to the emergency department by EMS. The patient's heard her fall and hit her head. He states she hit her head on the tile floor. It is unclear whether she passed out or tripped and fell, the patient does not recall the injury. The patient's states that after hearing her fall he went to her and propped her up and called EMS. Upon EMS arrival the patient was evaluated and placed on the stretcher at which time she became briefly unresponsive and the medics could not feel a pulse. And CPR was performed for approximately 45 seconds. After the 45 seconds she woke up and responded appropriately. Upon arrival to the emergency department she had several episodes of vomiting and was given IV Zofran. Her neuroexam was normal. She was somewhat dazed but otherwise appropriate. She denied any chest pain or shortness of breath. She denied any neck pain. She had no focal neurologic deficits. Initial EKG showed a sinus rhythm with right bundle branch block and second-degree Mobitz type II block with occasional PVCs. She was taken to CAT scan and CT scan of the head and cervical spine was ordered. X-ray of the chest was also ordered. She had recurrent episodes of vomiting and was given Reglan and IV fluids in addition to her Zofran. Her neuroexam remained normal. Cardiac workup for the presumed syncope was ordered. She has a normal white count and hemoglobin. This was mildly elevated at 299.. She was given 6 units of IV insulin. She has a normal troponin. BNP is normal. She has elevated BUN and creatinine which is higher than her baseline. 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 She has never been on dialysis. Her potassium was 5.4. She was given 2 g of magnesium for the ectopy we were seeing on the monitor and continually monitored. Her blood pressure was initially markedly elevated but did come down as did her pulse. A repeat EKG after her pulse had come down is a sinus rhythm with sinus arrhythmia at 72 bpm but does not show a Mobitz type II. She does have a right bundle branch block that has been seen on prior EKGs. I received a call from the radiologist about her CT scan. CT scan of the brain showed a tiny left parafalcine acute subdural hematoma with greatest thickness of 2 mm at the level of the frontal lobe as well as a small amount of acute subarachnoid hemorrhage in the base of the anterior cranial fossa specifically along the cribriform plate and the right and left olfactory sulci. There was mild posterior midline parietal scalp contusion. There was no notable shift. CT scan of the cervical spine was also read by radiology and did not show any acute findings. The patient has remained hemodynamically and neurologically stable in the emergency department. I discussed the results of her findings with her. She is agreeable to transfer. The case was discussed with Dr. Huitron at [facility] in [place] and she is accepted for transfer. The patient's was updated as to the plan of care. Medical Records Attestation: I reviewed the patient's medical records. Lab Data Attestation: I reviewed the patient's lab results. Labs: Lab Results 10/23/24 10/23/24 10/23/24 Range/Units 21:47 21:50 23:54 WBC 9.1 (4.0-11.0) 10^3/uL RBC 3.98 L (4.20-5.40) 10^6/uL Hgb 11.9 L (12.0-16.0) g/dL Hct 35.6 L (36.0-48.0) % MCV 89.4 (81.0-99.0) fL MCH 29.9 (26.7-34.0) pg MCHC 33.4 (29.9-35.2) g/dL RDW 13.3 (11.0-15.0) % Plt Count 241 (150-450) 10^3/uL MPV 10.3 (9.5-13.5) fL Neut % (Auto) 59.6 (43.0-75.0) % Lymph % (Auto) 24.1 (20.5-60.0) % [place] % (Auto) 11.7 (1.7-12.0) % Eos % (Auto) 3.3 (0.9-7.0) % Baso % (Auto) 0.8 (0.2-2.0) % Neut # (Auto) 5.4 (1.4-6.5) 10^3/uL Lymph # (Auto) 2.2 (1.2-3.8) 10^3/uL [place] # (Auto) 1.1 H (0.3-0.8) 10^3/uL Eos # (Auto) 0.3 (0.0-0.7) 10^3/uL Baso # (Auto) 0.1 (0.0-0.1) 10^3/uL Abs Immat Gran (auto) 0.05 H (0.00-0.03) 10^3/uL Imm/Tot Granulo (auto) 0.5 (0.0-0.5) % Sodium 137 (136-145) mmol/L Potassium 5.4 H (3.5-5.1) mmol/L Chloride 102 (98-107) mmol/L Carbon Dioxide 23.1 (21.0-32.0) mmol/L Anion Gap 17.3 BUN 123.0 H* (7.0-18.0) mg/dL Creatinine 3.72 H (0.55-1.02) mg/dL Est GFR ( Amer) 14 L (>=60 mL/min/1.73m^2) Est GFR (Non-Af Amer) 12 L (>=60 mL/min/1.73m^2) BUN/Creatinine Ratio 33.1 Glucose 324 H (74-106) mg/dL Lactate 1.2 (0.4-2.0) mmol/L Calcium 9.2 (8.5-10.1) mg/dL Total Bilirubin 0.4 (0.2-1.0) mg/dL AST 18 (15-37) U/L ALT 23 (14-59) U/L Alkaline Phosphatase 119 H (46-116) U/L Troponin I High Sens 6.0 (4.0-51.3) pg/mL NT-Pro-B Natriuret Pep 715.0 (<=1800.0) pg/mL Total Protein 7.5 (6.4-8.2) g/dL Albumin 3.4 (3.4-5.0) g/dL Globulin 4.1 g/dL Albumin/Globulin Ratio 0.8 Lipase 39.0 (16.0-77.0) U/L POC Glucose 299 H 200 H (74-106) mg/dL ECG Data Attestation: I personally reviewed and interpreted this ECG as follows: (Sinus rhythm at 62 bpm, occasional PVCs, secondary AV block Mobitz type II, right bundle emely block, left anterior hemiblock) Prior ECG tracings: available for review (Right bundle branch block was present on 11/21/2023, second-degree AV block Mobitz type II is new) Critical Care Time Critical Care Time Total Critical Care Time: 40 Attestation: Due to the patient's clinical presentation of syncope with head injury and vomiting despite her normal mental status there was a high probability of sudden clinically significant deterioration in her condition. She required the highest level of my preparedness to intervene urgently. I provided critical care time including documentation time medication orders and management, reassessment vital sign reassessment ordering and review of lab tests ordering reviewing of x-ray studies, discussion with transfer center. Aggregate critical care time is 40 minutes including only the time during which I was engaged in work directly related to caring of this patient and did not include time spent treating other patients simultaneously Discharge Plan Discharge Chief Complaint: Syncope Clinical Impression: Syncope and collapse, Subarachnoid bleed, Acute subdural hematoma, Chronic renal disease Patient Disposition: [facility] Time of Disposition Decision: 23:50 Discharge Location: [facility] Prescriptions / Home Meds: No Action humalog subcut TID Rx Instructions: 35-30-35 furosemide [Lasix] 20 mg tablet 20 mg PO DAILY carvedilol [Coreg] 25 mg tablet 25 mg PO BID Rx Instructions: must administer with a meal/food Vitamin D 3 4,000 units PO DAILY sodium polystyrene sulfonate [SPS] 20 ml PO .3 times a week Lokelma 10 gram powder in packet 10 g PO .3 times a week Rx Instructions: Then resume once daily dosing as usual carvedilol 25 mg tablet 25 mg PO BID montelukast 10 mg tablet 10 mg PO DAILY rosuvastatin 10 mg tablet 10 mg PO DAILY Lokelma 10 gram powder in packet 10 g PO DAILY magnesium oxide 500 mg capsule 500 mg PO DAILY Kerendia 10 mg tablet 10 mg PO DAILY Entresto 97-103 mg tablet 1 tab PO BID Rx Instructions: 49-51 mg aspirin 81 mg tablet,delayed release (DR/EC) 81 mg PO DAILY biotin 10,000 mcg capsule 10,000 mcg PO DAILY insulin glargine [Lantus Solostar U-100 Insulin] 100 unit/mL (3 mL) insulin pen 16 unit subcut DAILY Lyumjev KwikPen U-100 Insulin 100 unit/mL insulin pen 15 unit subcut TID Print Language: Montenegrin Referrals: ISSA NORTON DO [Primary Care Provider] - 1 week
[2024-10-23 21:51] LABS: Glucometer 299 mg/dL (74-106)
--- NOTE | 2024-10-23 21:53 | ECG_ITS ---
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
[2024-10-23 21:54] LABS: Basophils Absolute Auto 0.1 10^3/uL (0.0-0.1); Basophils Percent Auto 0.8 % (0.2-2.0); Eosinophils Absolute Auto 0.3 10^3/uL (0.0-0.7); Eosinophils Percent Auto 3.3 % (0.9-7.0); Hematocrit 35.6 % (36.0-48.0); Hemoglobin 11.9 g/dL (12.0-16.0); Immature Granulocytes Abs Auto 0.05 10^3/uL (0.00-0.03); Immature Granulocytes Pct Auto 0.5 % (0.0-0.5); Lymphocytes Absolute Auto 2.2 10^3/uL (1.2-3.8); Lymphocytes Percent Auto 24.1 % (20.5-60.0); Mean Corpuscular HGB Conc 33.4 g/dL (29.9-35.2); Mean Corpuscular Hemoglobin 29.9 pg (26.7-34.0); Mean Corpuscular Volume 89.4 fL (81.0-99.0); Mean Platelet Volume 10.3 fL (9.5-13.5); Monocytes Absolute Auto 1.1 10^3/uL (0.3-0.8); Monocytes Percent Auto 11.7 % (1.7-12.0); Neutrophils Absolute Auto 5.4 10^3/uL (1.4-6.5); Neutrophils Percent Auto 59.6 % (43.0-75.0); Platelet Count 241 10^3/uL (150-450); Red Blood Count 3.98 10^6/uL (4.20-5.40); Red Cell Distribution Width 13.3 % (11.0-15.0); White Blood Count 9.1 10^3/uL (4.0-11.0)
--- OUTSIDE RECORDS SUMMARY | 2024-10-23 22:03 | XMS_ITS | CCD ---
Author Organization [facility] Care Team Providers Care Visual Education Director Name Role Phone Crys PROOF TECHNICIAN.DORINA Tiera L Unavailable [phone] CIERRA, DR PARSONS Primary Care Unavailable JOHAN [...] Admitting Unavailable NOLAN, JOHAN Attending Unavailable Crys PROOF TECHNICIAN.DORINATiera Kayy Unavailable [phone] Crys PROOF TECHNICIAN.DORINA Tiera Kayy Unavailable [phone] JEFF Abdi Attending Provider JR Ken Norton Primary Care Provider [phone] Ken Norton Primary Care Unavailable Edgard Abdi [...] Unavailable Ken Norton MD Primary Care Provider Petfilippo DO, Fartun Byrd Unavailable BROWN, EDGARD A Attending Unavailable BROWN, EDGARD A Attending Unavailable BROWN, EDGARD A Attending Unavailable BROWN, EDGARD A Attending Unavailable BROWN, EDGARD A Attending Unavailable PETZNICK, FARTUN Byrd Attending Unavailable VALONEKEN Referring Unavailable BROWN, EDGARD A Attending Unavailable BROWN, EDGARD A Attending Unavailable SHAWN STOUT Attending Unavailable [...] BROWN, EDGARD A Attending Unavailable PETZNICK, FARTUN Byrd Attending Unavailable PETZNICK, FARTUN Byrd Attending Unavailable VALONEKEN Referring Unavailable BROWN, EDGARD A Attending Unavailable Allergies Allergy Classification Reported Allergen(s) Allergy Type Date of Onset Reaction(s) Facility (20 sources) Acetaminophen / Codeine; Translations: [ACETAMINOPHEN-CO DEINE] Drug Allergy 0 Other: See Comments [facility] (20 sources) benzonatate; Translations: [benzonatate] Drug Allergy 0 Vomiting [facility] (20 sources) Cephalexin; Translations: [cephalexin] Drug Allergy 0 Rash [facility] (20 sources) Ciprofloxacin; Translations: [CIPROFLOXACIN] Drug Allergy 9 Other: See Comments [facility] (20 sources) Clindamycin; Translations: [CLINDAMYCIN] Drug Allergy 9 Other: See Comments, Rash [facility] (11 sources) Penicillins; Translations: [penicillins] Drug Allergy 4 Other: See Comments [facility] (19 sources) Penicillins Drug Allergy 4 Other: See Comments [facility] (1 source) benzonatate Drug Allergy 0 [facility] (1 source) Cephalexin Drug Allergy 0 [facility] (1 source) Ciprofloxacin Drug Allergy [facility] (1 source) Clindamycin Drug Allergy [facility] (1 source) Penicillins Drug allergy (disorder) 4 [facility] (1 source) Tylenol-Codeine #3 Drug allergy (disorder) 0 [facility] (17 sources) Acetaminophen; Translations: [acetaminophen] Drug Allergy 3 [facility] (17 sources) Codeine; Translations: [codeine] Drug Allergy 3 [facility] (1 source) benzonatate Drug Allergy 4 [facility] (1 source) Cephalexin Drug Allergy 4 [facility] (1 source) Ciprofloxacin Drug Allergy 4 [facility] (1 source) Clindamycin Drug Allergy 4 [facility] (1 source) Penicillins Drug allergy (disorder) 4 [facility] (1 source) Cephalexin; Translations: [cephalexin monohydrate] Drug Allergy [facility] Repository (1 source) Cephalexin; Translations: [Keflex] Drug Allergy [facility] Repository (10 sources) benzonatate Drug Allergy 3 Rash [facility] (10 sources) Penicillins Drug Allergy 3 [facility] Medications Current Medications Medication Drug Class(es) Dates Sig (Normalized) Sig (Original) acetaminophen 325 mg / HYDROcodone bitartrate 5 mg oral tablet (2 sources) Opioid Agonist Start: 10-17-2024 End: 10-22-2024 take 1 tablet by mouth every eight hours as needed for pain HYDROcodone-acet aminophen (Niwot) 5-325 MG tablet Indications: Pain Take 1 tablet by mouth every 8 (eight) hours if needed for moderate pain (PRN pain) for up to 5 days 15 tablet 10/17/2024 10/22/2024 Active amLODIPine / olmesartan (4 sources) Dihydropyridine Calcium [...] 01/17/14 Status: Ordered BILBERRY, VACCINIUM MYRTILLUS, PO (10 sources) BILBERRY, VACCIN IUM MYRTILLUS, PO Bilberry [...] Comment on above: Take 1 capsule by [facility] once daily. 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) Inject 1 Device under the skin every 14 (fourteen) days 6 each 3 05/20/2024 Active 60 actuat exenatide 0.01 mg/actuat pen injector (4 sources) GLP-1 Receptor Agonist Start: 01-17-20 14 Byetta 10 mcg/0.04 mL Injection 5 microgram, SubCutaneous, BID, Refills(s) 0, High blood sugar Start Date: 01/17/14 Status: Ordered famotidine 20 mg oral tablet (1 source) Histamine-2 Receptor Antagonist Start: 05-03-20 take 1 tablet by mouth once daily at bedtime Famotidine (Pepcid) 20 mg tablet Active 20 MG PO Daily at bedtime May 03, 2024 12:00am Finerenone (1 source) Start: 05-03-20 24 take 1 tablet by mouth once daily Finerenone (Kerendia) 10 mg tablet Active 10 MG PO Daily May 03, 2024 12:00am finerenone (Kerendia) 10 MG tablet (10 sources) take 2 tablets by mouth once daily finerenone (Kerendia) 10 MG tablet Take 20 mg by mouth 1 (one) time each day at the same time. Active 3 ml insulin glargine 100 unt/ml pen injector (11 sources) Insulin Analog Start: 08-19-20 insulin glargine (Lantus SoloStar) 100 UNIT/ML pen Indications: 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, with long-term current use of insulin ([facility]) Inject 15 Units under the skin in [...] disease, with long-term current use of insulin ([facility]) 8 units shake, 10 units lunch, 16 [...] aily. rosuvastatin calcium 10 mg oral tablet (18 sources) HMG-CoA Reductase Inhibitor Start: 01-17-2014 End: [...] mL of water, stir and drink immediately. sulfamethoxazole 800 mg / trimethoprim 160 mg oral tablet (2 sources) Dihydrofolate Reductase Inhibitor Antibacterial, Sulfonamide Antimicrobial Start: End: take 1 tablet by mouth once in the morning, then take 1 tablet by mouth once at mealtime sulfamethoxazole-tri methoprim (Bactrim DS) 800-160 MG per tablet Indications: Osteomyelitis of ankle or foot, acute, right (CMS/HCC) Take 1 tablet by mouth in the morning and 1 tablet in the evening. Take with meals. Do all this for 10 days. 20 tablet 10/17/2024 10/27/2024 Active torsemide 20 mg oral tablet (20 sources) Loop Diuretic Start: take 1 tablet by mouth every other [...] Status: Ordered take 1 capsule by mo uth in the morning alpha tocopherol (Vitamin E) [...] above: Pt akes three times a week sodium polystyrene sulfonate 63904 mg powder for oral suspension (4 sources) [...] Documented Da te Episodic/Chronic Acquired foot deformities (17 sources) Acquired deformity of toe of right foot; Translations: [Acquired deformities of toe(s), unspecified, right foot] Onset: 04-02-2020 05-11-2023 Episodic Chronic kidney disease (9 sources) Chronic kidney disease, unspecified; Translations: [Chronic kidney disease, stage 4 (severe)] Onset: 11-12-2019 Chronic Chronic ulcer of skin (8 sources) Non-pressure chronic ulcer of other part [...] caused by tuberculosis or sexually transmitted disease) (6 sources) Acute osteomyelitis of ankle and/or foot; Translations: [Other acute osteomyelitis, right ankle and foot] 09-26-2024 Chronic Inflammation; infection of eye (except that caused by tuberculosis or sexually transmitteddisease) (2 sources) Unspecified conjunctivitis; Translations: [Unspecified acute conjunctivitis, bilateral] Onset: 03-28-2023 Episodic Menopausal disorders (10 sources) Atrophic vaginitis; Translations: [Postmenopausal atrophic vaginitis] Onset: 09-19-2016 05-11-2023 Chronic Nausea and vomiting (1 source) Vomiting, unspecified; Translations: [VOMITING UNSPECIFIED] Onset: 03-28-2023 Episodic Nutritional deficiencies (4 sources) Vitamin D deficiency; Translations: [Vitamin D deficiency, unspecified] Onset: 02-13-2024 Chronic Osteoporosis (10 sources) Osteoporosis; Translations: [Age-related osteoporosis without current pathological fracture] Onset: 04-02-2020 05-11-2023 Chronic Other aftercare (1 source) USP (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 of aspirin; Translations: [FDC CURRENT USE OF ASPIRIN] Onset: 03-28-2023 Episodic Other aftercare (5 sources) Other middle or 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 school principal (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; Translations: [OTH ONLINE MARKETER CURRENT DRUG THERAPY] Onset: 09-14-2022 Episodic Other nutritional; endocrine; and metabolic disorders (10 sources) Severe obesity; Translations: [Class 2 severe [...] Date Documented Date Episodic/Chronic Cancer of ovary (10 sources) History of malignant neoplasm of ovary; Translations: [Personal history of malignant neoplasm of ovary] Onset: 04-02-2020 05-11-2023 Episodic Fluid and electrolyte disorders (9 sources) Hyperkalemia; Translations: [Hyperkalemia] Onset: 09-18-2022 Episodic Genitourinary symptoms and ill-defined conditions (7 sources) Proteinuria; Translations: [Proteinuria, unspecified] Onset: 02-13-2024 Episodic Mycoses (11 sources) Onychomycosis due to dermatophyte ; Translations: [Tinea unguium] Onset: 04-02-2020 05-11-2023 Episodic Other aftercare (3 sources) USP (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 of insulin; Translations: [ONLINE MARKETER CURRENT USE OF INSULIN] Onset: 11-12-2019 Episodic Other aftercare (10 sources) Long-term current use of insulin; Translations: [USP (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 of insulin] Onset: 12-18-2018 Resolved: 11-06-2023 11-06-2023 Episodic Other connective tissue disease (10 sources) Pain in limb; Translations: [Pain in unspecified limb] Onset: 04-02-2020 05-11-2023 Episodic Other diseases of veins and lymphatics (10 sources) Peripheral venous insufficiency; Translations: [Venous insufficiency (chronic) (peripheral)] Onset: 05-21-2020 05-11-2023 Episodic Other injuries and conditions due to external causes (10 sources) At risk for falls ; Translations: [History of falling] Onset: 04-02-2020 05-11-2023 Episodic Other lower respiratory disease (1 source) Shortness of breath; Translations: [SHORTNESS OF BREATH] Onset: 11-29-2022 Episodic Other lower respiratory disease (1 source) Dyspnea, unspecified; Translations: [DYSPNEA UNSPECIFIED] Onset: 09-18-2022 Episodic Other screening for suspected conditions (not mental disorders or infectious disease) (16 sources) Other specified abnormal findings of blood [...] 08-15-2024 Albumin [Mass/Vol] 4.1 g/dL Normal 3.9-4.9 [facility] Comment on above: Order Comment: Speci men Type: BLOOD SPECIMENOrdering Facility: [facility] Address: [address] [place] [address] Performed By: #### 2 4362-6 ####[facility] [id number] [place] [address] Anion gap [Moles/Vol] 13 mmol/L Normal 8-15 [facility] Comment on above: Order Comment: Speci men Type: BLOOD SPECIMENOrdering Facility: [facility] Address: [address] [place] [address] Performed By: #### 2 4362-6 ####[facility] [id number] [place] [address] Calcium [Mass/Vol] 9.6 mg/dL Normal 8.5-10.2 [facility] Comment on above: Order Comment: Speci men Type: BLOOD SPECIMENOrdering Facility: [facility] Address: [address] [place] [address] Performed By: #### 2 4362-6 ####[facility] [id number] [place] [address] Chloride [Moles/Vol] 103 mmol/L Normal 98-107 [facility] Comment on above: Order Comment: Speci men Type: BLOOD SPECIMENOrdering Facility: [facility] Address: [address] [place] [address] Performed By: #### 2 4362-6 ####[facility] [id number] [place] [address] CO2 [Moles/Vol] 23 mmol/L Normal 22-30 [facility] Comment on above: Order Comment: Speci men Type: BLOOD SPECIMENOrdering Facility: [facility] Address: [address] [place] [address] Performed By: #### 2 4362-6 ####[facility] [id number] [place] [address] Creatinine [Mass/Vol] 2.12 mg/dL High 0.58-0.96 [facility] Comment on above: Order Comment: Speci men Type: BLOOD SPECIMENOrdering Facility: [facility] Address: [address] [place] [address] Performed By: #### 2 4362-6 ####[facility] [id number] [place] [address] Creatinine and Glomerular filtration rate.predicted panel (S/P/Bld) 23 mL/min/1.73m??? Low >=60 [facility] Comment on above: Order Comment: Speci men Type: BLOOD SPECIMENOrdering Facility: [facility] Address: [address] [place], [place] [id number] Result Comment: Malini mated Glomerular Filtration Rate [...] actual GFR. Performed By: #### 2 4362-6 ####[facility]IA [id number] [place] [address] Glucose [Mass/Vol] 260 mg/dL High 74-99 [facility] Comment on above: Order Comment: Earline porras Type: BLOOD SPECIMENOrdering Facility: [facility] Address: [address] [place], [place] [address] Result Comment: The [place] Diabetes Association (ADA) provides guidance for cutoff [...] Standards of Medical Care in Diabetes 2016, [place] Diabetes Association. Diabetes Care. 2016.39(Suppl 1). Performed By: #### 2 4362-6 ####[facility] [id number] [place] [address] Phosphate [Mass/Vol] 4.3 mg/dL Normal 2.7-4.8 [facility] Comment on above: Order Comment: Earline porras Type: BLOOD SPECIMENOrdering Facility: [facility] Address: [address] [place] [address] Performed By: #### 2 4362-6 ####[facility]CLIA [id number] [place] [address] Potassium [Moles/Vol] 5.0 mmol/L Normal 3.7-5.1 [facility] Comment on above: Order Comment: Speci men Type: BLOOD SPECIMENOrdering Facility: [facility] Address: [facility] [place] [id number] Performed By: #### 2 4362-6 ####[facility]CLIA [id number] [place] [address] Sodium [Moles/Vol] 139 mmol/L Normal 136-144 [facility] Comment on above: Order Comment: Speci men Type: BLOOD SPECIMENOrdering Facility: [facility] Address: [address] [place] [address] Performed By: #### 2 4362-6 ####[facility]CLIA [id number] [place] [address] Urea nitrogen [Mass/Vol] 76 mg/dL High 7-21 [facility] Comment on above: Order Comment: Speci men Type: BLOOD SPECIMENOrdering Facility: [facility] Address: [address] [place], [place] [address] Performed By: #### 2 4362-6 ####[facility] LABCLIA [id number] [place] [address] [facility] VARSHA CHAUDHRY ([id number]) 1945 F Date Time Provider Department 08/02/24 TIERA SPANGLER [facility] During your visit today, we recorded [...] the labs nonfasting in 1-2 weeks in [place], orders are in Tiera Spangler APRN.PIPER INSTALLER Allergies As of Date: 08/02/2024 Noted Allergy [...] Encounter Status:Closed by K[facility]VAL[facility]02[facility] VAR[facility] CHAUDHR[facility] ([id number]) 1945 F Date Time Provider Department 08/02/24 [facility] SPANGLER [facility] During your visit today, we recorded the following information about you: Tiera Spangler APRN.DORINA 08/02/2024 10:39 AM Signed Please call patient Her potassium is better on the increased lokelma of 15gm daily Scr is a bit above baseline at 2.3 Please have her repeat the labs nonfasting in 1-2 weeks in [place], orders are in Tiera Spangler APRN.PIPER INSTALLER Allergies As of Date: 08/02/2024 Noted Allergy [...] kidney disease) stage 4, GFR 15-29 ml/min ([facility]) [N18.4] Order(s):RENAL FUNCTION PANEL [SQRFP] Order #: [id number] FUTURE Prescriptions as of 08/02/2024 - sodium [...] Status:Closed by TIERA SPANGLER on 08/02/24 Normal [facility] Renal function 2000 panelon 08-01-2024 Albumin [Mass/Vol] 4.3 g/dL Normal 3.9-4.9 [facility] Comment on above: Order Comment: Speci men Type: BLOOD SPECIMENOrdering Facility: [facility] Address: [address] [place] [address] Performed By: #### 2 4362-6 ####[facility]CLIA [id number] [place] [address] Anion gap [Moles/Vol] 16 mmol/L High 8-15 [facility] Comment on above: Order Comment: Speci men Type: BLOOD SPECIMENOrdering Facility: [facility] Address: [address] [place] [address] Performed By: #### 2 4362-6 ####[facility]CLIA [id number] [place] [address] Calcium [Mass/Vol] 9.7 mg/dL Normal 8.5-10.2 [facility] Comment on above: Order Comment: Speci men Type: BLOOD SPECIMENOrdering Facility: [facility] Address: [address] [place] [address] Performed By: #### 2 4362-6 ####[facility]CLIA [id number] [place] [address] Chloride [Moles/Vol] 99 mmol/L Normal 98-107 [facility] Comment on above: Order Comment: Speci men Type: BLOOD SPECIMENOrdering Facility: [facility] Address: [address] [place] [address] Performed By: #### 2 4362-6 ####[facility]CL[facility] [id number] [place] [address] CO2 [Moles/Vol] 27 mmol/L Normal 22-30 [facility] Comment on above: Order Comment: Speci men Type: BLOOD SPECIMENOrdering Facility: [facility] Address: [address] [place] [address] Performed By: #### 2 4362-6 ####[facility] [id number] [place] [address] Creatinine [Mass/Vol] 2.30 mg/dL High 0.58-0.96 [facility] Comment on above: Order Comment: Earline porras Type: BLOOD SPECIMENOrdering Facility: [facility] Address: [address] [place] [id number] Performed By: #### 2 4362-6 ####[facility]CLIA [id number] [place] [address] Creatinine and Glomerular filtration rate.predicted panel (S/P/Bld) 21 mL/min/1.73m??? Low >=60 [facility] Comment on above: Order Comment: Speclucian porras Type: BLOOD SPECIMENOrdering Facility: [facility] Address: [address] [place] [address] Result Comment: Malini mated Glomerular Filtration Rate [...] actual GFR. Performed By: #### 2 4362-6 ####[facility]CLIA [id number] [place] [address] Glucose [Mass/Vol] 242 mg/dL High 74-99 [facility] Comment on above: Order Comment: Earline porras Type: BLOOD SPECIMENOrdering Facility: [facility] Address: [address] [place] [id number] Result Comment: The [place] Diabetes Association (ADA) provides guidance for cutoff [...] Standards of Medical Care in Diabetes 2016, [place] Diabetes Association. Diabetes Care. 2016.39(Suppl 1). Performed By: #### 2 4362-6 ####[facility]CLIA [id number] [place] [address] Phosphate [Mass/Vol] 4.9 mg/dL High 2.7-4.8 [facility] Comment on above: Order Comment: Speci men Type: BLOOD SPECIMENOrdering Facility: [facility] Address: [address] [place] [address] Performed By: #### 2 4362-6 ####[facility]CLIA [id number] [place] [address] Potassium [Moles/Vol] 4.8 mmol/L Normal 3.7-5.1 [facility] Comment on above: Order Comment: Speci men Type: BLOOD SPECIMENOrdering Facility: [facility] Address: [address] [place] [address] Performed By: #### 2 4362-6 ####[facility]CLIA [id number] [place] [address] Sodium [Moles/Vol] 142 mmol/L Normal 136-144 [facility] Comment on above: Order Comment: Speci men Type: BLOOD SPECIMENOrdering Facility: [facility] Address: [address] [place] [address] Performed By: #### 2 4362-6 ####[facility]CLIA [id number] [place] [address] Urea nitrogen [Mass/Vol] 111 mg/dL High 7-21 [facility] Comment on above: Order Comment: Speci men Type: BLOOD SPECIMENOrdering Facility: [facility] Address: [address] [place] [address] Performed By: #### 2 4362-6 ####[facility]CLIA [id number] [place] [address] Thalia 07-24-2024 DORINAN Telephone ([facility]) VARSHA CHAUDHRY ([id number]) 1945 F Date Time Provider Department 07/24/24 TIERA SPANGLER During your visit today, we recorded the following information about you: Tiera Spangler APRN.DORINA 07/24/2024 11:04 AM Signed Please call pt re: labs Kidney function is stable Potassium is a little high at 5.4 Continue lokelma. I am going to increase it to 15gm daily I will order a new shipment to be sent Labs in [place] 1 week after she starts increase, nonfasting [...] new shipment to be sent Labs in [place] 1 week after she starts increase, nonfasting Tiera Spangler APRN.EFE Steward Allergies As of Date: 07/24/2024 Noted Allergy [...] 3 RENAL FUNCTION PANEL [SQRFP] Order #: [id number] FUTURE Prescriptions as of 07/24/2024 - sodium [...] Status:Closed by TIERA SPANGLER on 07/24/24 Normal [facility] 25(OH)D3 [facility] 2023 25-hydroxyvitamin D3 [Mass/Vol] 43.6 ng/mL Normal 31.0-80.0 [facility] Comment on above: Order Comment: Speci men Type: BLOOD SPECIMEN [facility] Address: [address] [place] [address] Result Comment: Clas sification of 25 [place] Vitamin D status: Deficiency/Insufficiency: < or = 30 ng/ml. Sufficiency/Optimal Levels: 31-80 ng/mL Toxicity: > 100 ng/mL. Test performed by chemiluminescent immunoassay. Performed By: #### 1 989-3 #### [facility] CLIA [id number] [address] [place] [address] [place] ALBUMIN/CREATININE RATIO, UR [facility] 07-23-2024 Albumin DL <= 20 mg/L (U) [Mass/Vol] 184.1 mg/L [facility] Albumin/Creatinine (U) [Mass ratio] 1427 mg/g High NINF - 30 mg/g [facility] Comment on above: Adult Male and [...] 20 mg/L (U) [Mass/Vol] 184.1 mg/L Normal [facility] Comment on above: Order Comment: Speci men Type: URINE SPECIMEN [facility] Address: [address] [place] [address] Performed By: #### 3 5674-1, UACR, 2888-6 #### [facility] CLIA [id number] [address] [place] [address] [place] Albumin/Creatinine (U) [Mass ratio] 1427 mg/g High <30 [facility] Comment on above: Order Comment: Speci men Type: URINE SPECIMEN [facility] Address: [address] [place] [address] Result Comment: Adul t Male and Female [...] 3 5674-1, UACR, 2888-6 #### [facility] CLIA [id number] [address] [place] [address] [place] [address] [place] CBC panel Auto (Bld)on 07-23 Erythrocyte distribution width (RBC) [Ratio] 13.9 % 11.5 - 15.0 % [facility] Hematocrit (Bld) [Volume fraction] 37.8 % 36.0 - 46.0 % [facility] Hemoglobin (Bld) [Mass/Vol] 12.3 g/dL 11.5 - 15.5 g/dL [facility] Interpretation and review of laboratory results Normal [facility] MCH (RBC) [Entitic mass] 30.3 pg 26.0 - 34.0 pg [facility] MCHC (RBC) [Mass/Vol] 32.5 g/dL 30.5 - 36.0 g/dL [facility] MCV (RBC) [Entitic vol] 93.1 fL 80.0 - 100.0 fL [facility] Nucleated RBC (Bld) [#/Vol] NINF [facility] Platelet mean volume (Bld) [Entitic vol] 9.6 fL 9.0 - 12.7 fL [facility] Platelets (Bld) [#/Vol] 226 10*3/uL [facility] RBC (Bld) [#/Vol] 4.06 10*6/uL 3.90 - 5.2 0 m/uL [facility] WBC (Bld) [#/Vol] 10.51 10*3/uL [facility] Erythrocyte distribution width (RBC) [Ratio] 13.9 % Normal 11.5-15.0 [facility] Comment on above: Order Comment: Speci men Type: BLOOD SPECIMEN Ordering Facility: [facility] Address: [address] [place] [address] Performed By: #### 5 5454-3 #### [facility] CLIA [id number] [address] [place] [address] [place] Hematocrit (Bld) [Volume fraction] 37.8 % Normal 36.0-46.0 [facility] Comment on above: Order Comment: Speci men Type: BLOOD SPECIMEN Ordering Facility: [facility] Address: [address] [place] [address] Performed By: #### 5 5454-3 #### [facility] CLIA [id number] [address] [place] [address] [place] Hemoglobin (Bld) [Mass/Vol] 12.3 g/dL Normal 11.5-15.5 [facility] Comment on above: Order Comment: Speci men Type: BLOOD SPECIMEN Ordering Facility: [facility] Address: [address] [place] [address] Performed By: #### 5 5454-3 #### [facility] CLIA [id number] [address] [place] [address] [place] MCH (RBC) [Entitic mass] 30.3 pg Normal 26.0-34.0 [facility] Comment on above: Order Comment: Speci men Type: BLOOD SPECIMEN Ordering Facility: [facility] Address: [address] [place] [address] Performed By: #### 5 5454-3 #### [facility] CLIA [id number] [address] [place] [address] [place] MCHC (RBC) [Mass/Vol] 32.5 g/dL Normal 30.5-36.0 [facility] Comment on above: Order Comment: Speci men Type: BLOOD SPECIMEN Ordering Facility: [facility] Address: [address] [place] [address] Performed By: #### 5 5454-3 #### [facility] CLIA [id number] [address] [place] [address] [place] MCV (RBC) [Entitic vol] 93.1 fL Normal 80.0-100.0 [facility] Comment on above: Order Comment: Speci men Type: BLOOD SPECIMEN Ordering Facility: [facility] Address: [address] [place] [address] Performed By: #### 5 5454-3 #### [facility] CLIA [id number] [address] [place] [address] [place] Nucleated RBC (Bld) [#/Vol] 10*3/uL Normal <0.01 [facility] Comment on above: Order Comment: Speci men Type: BLOOD SPECIMEN Ordering Facility: [facility] Address: [address] [place] [address] Performed By: #### 5 5454-3 #### [facility] CLIA [id number] [address] [place] [address] [place] Platelet mean volume (Bld) [Entitic vol] 9.6 fL Normal 9.0-12.7 [facility] Comment on above: Order Comment: Speci men Type: BLOOD SPECIMEN Ordering Facility: [facility] Address: [address] [place] [address] Performed By: #### 5 5454-3 #### [facility] CLIA [id number] [address] [place] [address] [place] Platelets (Bld) [#/Vol] 226 10*3/uL Normal 150-400 [facility] Comment on above: Order Comment: Speci men Type: BLOOD SPECIMEN Ordering Facility: [facility] Address: [address] [place] [address] Performed By: #### 5 5454-3 #### [facility] CLIA [id number] [address] [place] [address] TOM RBC (Bld) [#/Vol] 4.06 10*6/uL Normal 3.90-5.20 [facility] Comment on above: Order Comment: Nestori men Type: BLOOD SPECIMEN Ordering Facility: [facility] Address: [address] [place] [address] Performed By: #### 5 5454-3 #### [facility] CLIA [id number] [address] [place] [address] [place] WBC (Bld) [#/Vol] 10.51 10*3/uL Normal 3.70-11.00 [facility] Comment on above: Order Comment: Nestori men Type: BLOOD SPECIMEN Ordering Facility: [facility] Address: [address] [place] [address] Performed By: #### 5 5454-3 #### [facility] CLIA [id number] [address] [place] [address] OF [facility] CNOVon 07-23-2024 CNOV Office Visit (MIDMAV) VARSHA CHAUDHRY ([id number]) 1945 F Date Time Provider Department 07/23/24 11:30 AM TIERA SPANGLER MIDDEV During your visit today, we recorded the following information about you: Pulse Blood pressure Weight Height 75/minute 161/82 88.9 kg 1.575 m Tiera Spangler, PROOF TECHNICIAN.PIPER INSTALLER 07/23/2024 11:09 AM Signed Pt is an [...] 4000U D 3-follow labs DM-she follows in [place], [place]. Update A1C. Continue endo follow up Plan Update labs Follow up 4-6 months Tiera Spangler APRN.PIPER INSTALLER Allergies As of Date: 07/23/2024 Noted Allergy [...] stage 4, GFR 15-29 ml/min (HCC) [N18.4] Other Visit Diagnoses:Proteinuri a, unspecified type [R80.9] 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, with long-term current use of insulin (HCC) [E11.22, N18.4, Z79.4] Benign hypertension with chronic kidney disease, stage IV (HCC) [I12.9, N18.4] Hyperkalemia [E87.5] Vitamin D deficiency [E55.9] Order(s):COMPLETE BLOOD COUNT [SQCBC] Order #: [id number] FUTURE FERRITIN [SQFERR] Order #: [id number] FUTURE IRON AND TIBC [SQIRON] Order #: [id number] FUTURE ALBUMIN/CREATININE RATIO, URINE [SQUACR] Order #: [id number] FUTURE RENAL FUNCTION PANEL [SQRFP] Order #: [id number] FUTURE PTH INTACT [SQPTHI] Order #: [id number] FUTURE VITAMIN D 25 HYDROXY [SQVITD] Order #: [id number] FUTURE CREATININE RANDOM URINE [SQUCRR] Order #: [id number] FUTURE PROTEIN RANDOM URINE [SQUTPR] Order #: [id number] FUTURE HEMOGLOBIN A1C [OGLGX7O] Order #: [id number] FUTURE RENAL FUNCTION PANEL [SQRFP] Order #: [id number] FUTURE Prescriptions as of 07/23/2024 - sodium [...] U-100 INSULIN (more content not included)... Normal [facility] Creat ?Tm [facility] 07-23-20 24 Creatinine (U) [Mass/Vol] 12.9 mg/dL Low 20.0-300.0 [facility] Comment on above: Order Comment: Speci men Type: URINE SPECIMEN [facility]ing Facility: [facility] Address: [address] [place] [address] Performed By: #### 3 5674-1, UACR, 2888-6 #### [facility] CLIA [id number] [address] [place] [address] [place] FERRITINon 07-23-2024 Ferritin [Mass/Vol] 153.8 ng/mL 14.7 - 2 05.1 ng/mL [facility] Ferritin SerPl-ncon 2023 Ferritin [Mass/Vol] 153.8 ng/mL Normal 14.7-205.1 [facility] Comment on above: Order Comment: Speci men Type: BLOOD SPECIMEN Ordering Facility: [facility] Address: [address] [place] [address] Performed By: #### 5 0190-8, 00575-9, 2276-4 #### [facility] CLIA [id number] [address] [facility] [place] [address] [place] Ferritin [Mass/Vol]on 2023 Interpretation and review of laboratory results Normal [facility] HbA1c (Bld)on 07-23-2024 Average glucose Estimated from glycated hemoglobin (Bld) [Mass/Vol] 194 mg/dL [facility] Comment on above: eAG: (Estimated aver age glucose) is a calculated value from HgbA1c and is retail customer service representative of the average blood glucose level in the last 2-3 month period. HbA1c (Bld) [Mass fraction] 8.4 % High 4.3 - 5.6 % [facility] Comment on above: [place] Diabetes As sociation guidelines indicate that patients with HgbA1c in the range 5.7-6.4% are at increased risk for development of diabetes, and intervention by lifestyle modification may be beneficial. HgbA1c greater or equal to 6.5% is considered diagnostic of diabetes. Interpretation and review of laboratory results Abnormal [facility] Average glucose Estimated from glycated hemoglobin (Bld) [Mass/Vol] 194 mg/dL Normal [facility] Comment on above: Order Comment: Earline porras Type: BLOOD SPECIMEN [facility]ing Facility: [facility] Address: [address] [place] [address] Result Comment: eAG: (Estimated average glucose) is a calculated value from HgbA1c and is retail customer service representative of the average blood glucose level in the last 2-3 month period. Performed By: #### 5 5454-3 #### [facility] CLIA [id number] [address] [place], [place] [address] [address] [place] HbA1c (Bld) [Mass fraction] 8.4 % High 4.3-5.6 [facility] Comment on above: Order Comment: Earline porras Type: BLOOD SPECIMEN Ordering Facility: [facility] Address: [address] [place] [address] Result Comment: [place] Diabetes Association guidelines indicate that patients with HgbA1c in the range 5.7-6.4% are at increased risk for development of diabetes, and intervention by lifestyle modification may be beneficial. HgbA1c greater or equal to 6.5% is considered diagnostic of diabetes. Performed By: #### 5 5454-3 #### [facility] CLIA [id number] [address] [facility] [place] [address] [place] Iron and Iron binding capaci [facility] 07-23-2024 Interpretation and review of laboratory results Normal [facility] Iron [Mass/Vol] 75 ug/dL 41 - 186 ug/dL [facility] Iron binding capacity [Mass/Vol] 303 ug/dL 232 - 386 ug/dL [facility] Iron/TIBC [Molar ratio] 24.8 % 15.0 - 57.0 % [facility] Iron [Mass/Vol] 75 ug/dL Normal 41-186 [facility] Comment on above: Order Comment: Speci men Type: BLOOD SPECIMEN Ordering Facility: [facility] Address: [address] [place] [address] Performed By: #### 5 0190-8, 58135-8, 6-4 #### [facility] CLIA [id number] [address] [place] [id number] [place] [address] [place] Iron binding capacity [Mass/Vol] 303 ug/dL Normal 232-386 [facility] Comment on above: Order Comment: Speci men Type: BLOOD SPECIMEN Ordering Facility: [facility] Address: [address] [place] [address] Performed By: #### 5 0190-8, 71741-6, 2275- #### [facility] CLIA [id number] [address] [place] [address] [place] Iron/TIBC [Molar ratio] 24.8 % Normal 15.0-57.0 [facility] Comment on above: Order Comment: Speci men Type: BLOOD SPECIMEN Ordering Facility: [facility] Address: [address] [place] [address] Performed By: #### 5 0190-8, 99130-3, 2275-4 #### [facility] CLIA [id number] [address] [place] [address] [place] Laboratory - Chemistry and C hemistry - [facility] 07-23-2024 Creatinine (U) [Mass/Vol] 12.9 mg/dL Low 20.0 - 300.0 mg/dL [facility] No Panel Informationon 07-23 Interpretation and review of laboratory results Abnormal [facility] PROTEIN RANDOM URINEon 07-23 Protein (U) [Mass/Vol] 31 mg/dL High 0 - 20 mg/dL [facility] PTH-Intact SerPl-mCncon 06-28 Parathyrin.intact [Mass/Vol] 62 pg/mL Normal 15-65 [facility] Comment on above: Order Comment: Speci men Type: BLOOD SPECIMEN Ordering Facility: [facility] Address: [address] [place] [address] Performed By: #### 2 731-8 #### [facility] CLIA [id number] [address] [place] [address] [place] Prot Ur-mCncon 07-23-2024 Protein (U) [Mass/Vol] 31 mg/dL High 0-20 [facility] Comment on above: Order Comment: Speci men Type: URINE SPECIMEN Ordering Facility: [facility] Address: [address] [place] [address] Performed By: #### 3 5674-1, UACR, 2888-6 #### [facility] CLIA [id number] [address] [place] [address] [place] Renal function 2000 panelon 07-23-2024 Albumin [Mass/Vol] 4.1 g/dL 3.9 - 4.9 g/dL [facility] Anion gap [Moles/Vol] 14 mmol/L 8 - 15 mmol/L [facility] Calcium [Mass/Vol] 10.0 mg/dL 8.5 - 10. 2 mg/dL [facility] Chloride [Moles/Vol] 103 mmol/L 98 - 10 7 mmol/L [facility] CO2 [Moles/Vol] 25 mmol/L 22 - 30 mmol/L [facility] Creatinine [Mass/Vol] 1.88 mg/dL High 0.58 - 0.96 mg/dL [facility] GFR/1.73 sq M.predicted among non-blacks MDRD (S/P/Bld) [Vol rate/Area] 27 mL/min/{1.73_m2} Low - PINF [facility] Comment on above: Estimated Glomerular Filtration [...] 184 mg/dL High 74 - 99 mg/dL [facility] Comment on above: The [place] Diabete s Association (ADA) provides guidance for [...] Standards of Medical Care in Diabetes 2016, [place] Diabetes Association. Diabetes Care. 2016.39(Suppl 1). Interpretation and review of laboratory results Abnormal [facility] Phosphate [Mass/Vol] 4.2 mg/dL 2.7 - 4 .8 mg/dL [facility] Potassium [Moles/Vol] 5.4 mmol/L High 3.7 - 5.1 mmol/L [facility] Sodium [Moles/Vol] 142 mmol/L 136 - 144 mmol/L [facility] Urea nitrogen [Mass/Vol] 82 mg/dL High 7 - 21 mg/dL [facility] Albumin [Mass/Vol] 4.1 g/dL Normal 3.9-4.9 [facility] Comment on above: Order Comment: Speci men Type: BLOOD SPECIMEN Ordering Facility: [facility] Address: [address] [place] [address] Performed By: #### 5 0190-8, 28614-6, 2276-4 #### [facility] CLIA [id number] [address] [facility] [place] [address] [place] Anion gap [Moles/Vol] 14 mmol/L Normal 8-15 [facility] Comment on above: Order Comment: Speci men Type: BLOOD SPECIMEN Ordering Facility: [facility] Address: [address] [place] [address] Performed By: #### 5 0190-8, 03645-5, 2275- #### [facility] CLIA [id number] [address] [place] [address] [place] Calcium [Mass/Vol] 10.0 mg/dL Normal 8.5-10.2 [facility] Comment on above: Order Comment: Speci men Type: BLOOD SPECIMEN Ordering Facility: [facility] Address: [address] [place] [address] Performed By: #### 5 0190-8, 74269-4, 2275- #### [facility] CLIA [id number] [address] [place] [address] [place] Chloride [Moles/Vol] 103 mmol/L Normal 98-107 [facility] Comment on above: Order Comment: Speci men Type: BLOOD SPECIMEN Ordering Facility: [facility] Address: [address] [place] [address] Performed By: #### 5 0190-8, 78651-1, 2276-02 #### [facility] CLIA [id number] [address] [place] [address] [place] CO2 [Moles/Vol] 25 mmol/L Normal 22-30 [facility] Comment on above: Order Comment: Speci men Type: BLOOD SPECIMEN Ordering Facility: [facility] Address: [address] [place] [address] Performed By: #### 5 0190-8, 39882-6, 2275- #### [facility] CLIA [id number] [address] [place] [address] [place] Creatinine [Mass/Vol] 1.88 mg/dL High 0.58-0.96 [facility] Comment on above: Order Comment: Speci men Type: BLOOD SPECIMEN Ordering Facility: [facility] Address: [address] [place] [address] Performed By: #### 5 0190-8, 82743-2, 2276-4 #### [facility] CLIA [id number] [address] [facility] [place] [address] [place] Creatinine and Glomerular filtration rate.predicted panel (S/P/Bld) 27 mL/min/1.73m??? Low >=60 [facility] Comment on above: Order Comment: Earline porras Type: BLOOD SPECIMEN Ordering Facility: [facility] Address: [address] [place] [address] Result Comment: Malini mated Glomerular Filtration Rate [...] actual GFR. Performed By: #### 5 0190-8, 27278-2, 2276-4 #### [facility] CLIA [id number] [address] [facility] [place] [address] [place] Glucose [Mass/Vol] 184 mg/dL High 74-99 [facility] Comment on above: Order Comment: Earline porras Type: BLOOD SPECIMEN Ordering Facility: [facility] Address: [address] [place] [address] Result Comment: The [place] Diabetes Association (ADA) provides guidance for cutoff [...] Standards of Medical Care in Diabetes 2016, [place] Diabetes Association. Diabetes Care. 2016.39(Suppl 1). Performed By: #### 5 0190-8, 13408-5, 2276-02 #### [facility] CLIA [id number] [address] [place] [address] [place] Phosphate [Mass/Vol] 4.2 mg/dL Normal 2.7-4.8 [facility] Comment on above: Order Comment: Speci men Type: BLOOD SPECIMEN Ordering Facility: [facility] Address: [address] [place] [address] Performed By: #### 5 0190-8, 50950-3, 2276-02 #### [facility] CLIA [id number] [address] [place] [address] [place] Potassium [Moles/Vol] 5.4 mmol/L High 3.7-5.1 [facility] Comment on above: Order Comment: Speci men Type: BLOOD SPECIMEN Ordering Facility: [facility] Address: [address] [place] [address] Performed By: #### 5 0190-8, 70562-7, 2276-02 #### [facility] IA [id number] [address] [place] [address] [place] Sodium [Moles/Vol] 142 mmol/L Normal 136-144 [facility] Comment on above: Order Comment: Speci men Type: BLOOD SPECIMEN Ordering Facility: [facility] Address: [address] [place] [address] Performed By: #### 5 0190-8, 32275-2, 2276-02 #### [facility] IA [id number] [address] [place] [address] [place] Urea nitrogen [Mass/Vol] 82 mg/dL High 7-21 [facility] Comment on above: Order Comment: Speci men Type: BLOOD SPECIMEN Ordering Facility: [facility] Address: [address] [place] [address] Performed By: #### 5 0190-8, 99833-5, 2275- #### [facility] CLIA [id number] [address] [place] [address] [place] CNPNon 06-18-2024 CNPN Telephone (MIDDEV) VARSHA CHAUDHRY ([id number]) 1945 F Date Time Provider Department 06/18/24 [...] calling: self Call patient at: at home [phone] (home) [phone] (cell) Was an appointment scheduled: No Closing statement: Results or non-symptom based questions: Thank you for calling [facility], your call will be returned within [...] free trial coupon to patient Tiera Spangler APRN.Viola Herndon MA 06/18/2024 4:45 PM Signed Spoke with pt, offered to hand patient requested forms at scheduled appt on 06/25/24 with Tiera Spangler. Pt declined and stated she would be in [facility] on 06/20/24. AZANDME nicole, Lokelma cards, and Lokelma prescription have been placed in an envelope in prescription box behind AVW2-2 behind check-out. Patient is to fill out page one of application and leave for Tiera. Please place completed application in Tiera's mailbox once completed by patient. *Patient plans to meat pickler packet 06/20/24 in the AM* CRISTELA Agustin [...] Fully Assessed Reason for Visit: Medication Assistance [1574] Cmt: LOKELMA Order(s):sodium zirconium cyclosilicate (LOKELMA) 10 [...] mouth once (more content not included)... Normal [facility] Capillary blood glucose arlyn urement by glucometer (mass/volume)Ordered By: Edgard Abdi on 05-03-2024 Glucose [Mass/Vol] 183 mg/dL Normal [facility] Comment on above: Random Glucose Refer ence Range is dependent on time and content of last meal. Glucose of more than 200 mg/dL in a nonstressed, ambulatory subject supports the diagnosis of Diabetes Mellitus. Result Comment: [place] Glucose Reference Range is dependent on time and content of last meal. Glucose of more than 200 mg/dL in a nonstressed, ambulatory subject supports the diagnosis of Diabetes Mellitus. Performed By: #### G LULS #### Point of Care testing , Glucose Poct Glucometerson 0 05-03-2024 Commemt1 Glu2: Cleaned Meter Normal [facility] Comment on above: Result Comment: PERF ORMED BY: [facility] [place] [address] PATHOLOGIST RESIDENT INSPECTOR LV BEGUM M.D. Performed By: #### G MELISA #### Point of Care testing , No Panel InformationOrdered By: Edgard Abdi on 05-03-2024 Bedside Glucose Comment Glu2: cleaned meter [facility] CNPNon 03-08-2024 CNPN Telephone (MIDMAV) VARSHA CHAUDHRY ([id number]) 1945 F Date Time Provider Department 03/08/24 MARYLU HEADLEY [facility] During your visit today, we recorded the following information about you: Liban Zuñiga RN 03/08/2024 2:39 PM Signed Patient?s identity has been confirmed by name and birthdate: Yes Call received from Erika from [facility] outpatient lab at 225 PM to report [...] on her torsemide. Scheduled to see Tiera Crys in 06/25/2024, update labs prior to visit. [...] Encounter Status:Closed by MARYLU HEADLEY on 03/08/24 [facility] 02-14-2024 [facility] Telephone (MIDMAV) VARSHA CHAUDHRY ([id number]) 1945 F Date Time Provider Department 02/14/24 MARYLU HEADLEY MIDDEV During your visit today, we recorded the following information about you: Marylu Headley DO 02/14/2024 2:19 PM Signed Called patient, kidney function is stable. Her chiropractic physician had wanted her to start sotagliflozin 200mg [...] Status:Closed by MARYLU HEADLEY on 02/14/24 Normal [facility] 25(OH)D3 SerPl-ncon 2023 25-hydroxyvitamin D3 [Mass/Vol] 55.6 ng/mL Normal 31.0-80.0 [facility] Comment on above: Order Comment: Earline porras Type: BLOOD SPECIMEN [facility]ing Facility: [facility] Address: [address] [place] [address] Result Comment: Clas sification of 25 [place] Vitamin D status: Deficiency/Insufficiency: < or = 30 ng/ml. Sufficiency/Optimal Levels: 31-80 ng/mL Toxicity: > 100 ng/mL. Test performed by chemiluminescent immunoassay. Performed By: #### 5 5454-3 #### [facility] CLIA [id number] [address] [place] [address] [place] CBC panel Auto (Bld)on 02-12 Erythrocyte distribution width (RBC) [Ratio] 13.1 % Normal 11.5-15.0 [facility] Comment on above: Order Comment: Earline porras Type: BLOOD SPECIMEN [facility] Facility: [facility] Address: [address] [place] [address] Performed By: #### 5 5454-3 #### [facility] CLIA [id number] [address] [place] [address] [place] Hematocrit (Bld) [Volume fraction] 40.6 % Normal 36.0-46.0 [facility] Comment on above: Order Comment: Earline porras Type: BLOOD SPECIMEN [facility] Facility: [facility] Address: [address] [place] [address] Performed By: #### 5 5454-3 #### [facility] [facility] CLIA [id number] [address] [place] [address] [place] Hemoglobin (Bld) [Mass/Vol] 12.9 g/dL Normal 11.5-15.5 [facility] Comment on above: Order Comment: Speci men Type: BLOOD SPECIMEN Ordering Facility: [facility] Address: [address] [place] [address] Performed By: #### 5 5454-3 #### [facility] CLIA [id number] [address] [place] [address] [place] MCH (RBC) [Entitic mass] 29.7 pg Normal 26.0-34.0 [facility] Comment on above: Order Comment: Speci men Type: BLOOD SPECIMEN Ordering Facility: [facility] Address: [address] [place] [address] Performed By: #### 5 5454-3 #### [facility] CLIA [id number] [address] [place] [address] [place] MCHC (RBC) [Mass/Vol] 31.8 g/dL Normal 30.5-36.0 [facility] Comment on above: Order Comment: Speci men Type: BLOOD SPECIMEN Ordering Facility: [facility] Address: [address] [place] [address] Performed By: #### 5 5454-3 #### [facility] CLIA [id number] [address] [place] [address] [place] MCV (RBC) [Entitic vol] 93.5 fL Normal 80.0-100.0 [facility] Comment on above: Order Comment: Speci men Type: BLOOD SPECIMEN Ordering Facility: [facility] Address: [address] [place] [address] Performed By: #### 5 5454-3 #### [facility] CLIA [id number] [address] [place] [address] [place] Nucleated RBC (Bld) [#/Vol] 10*3/uL Normal <0.01 [facility] Comment on above: Order Comment: Speci men Type: BLOOD SPECIMEN Ordering Facility: [facility] Address: [address] [place] [address] Performed By: #### 5 5454-3 #### [facility] CLIA [id number] [address] [place] [address] [place] Platelet mean volume (Bld) [Entitic vol] 10.3 fL Normal 9.0-12.7 [facility] Comment on above: Order Comment: Speci men Type: BLOOD SPECIMEN Ordering Facility: [facility] Address: [address] [place] [address] Performed By: #### 5 5454-3 #### [facility] CLIA [id number] [address] [place] [address] [place] Platelets (Bld) [#/Vol] 247 10*3/uL Normal 150-400 [facility] Comment on above: Order Comment: Speci men Type: BLOOD SPECIMEN Ordering Facility: [facility] Address: [address] [place] [address] Performed By: #### 5 5454-3 #### [facility] CLIA [id number] [address] [place] [address] [place] RBC (Bld) [#/Vol] 4.34 10*6/uL Normal 3.90-5.20 [facility] Comment on above: Order Comment: Speci men Type: BLOOD SPECIMEN Ordering Facility: [facility] Address: [address] [place] [address] Performed By: #### 5 5454-3 #### [facility] CLIA [id number] [address] [place] [address] [place] WBC (Bld) [#/Vol] 10.17 10*3/uL Normal 3.70-11.00 [facility] Comment on above: Order Comment: Speci men Type: BLOOD SPECIMEN Ordering Facility: [facility] Address: [address] [place] [address] Performed By: #### 5 5454-3 #### [facility] CLIA [id number] [address] [place], [place] [address] [id number] [place] CNOVon 02-13-2024 CNOV Office Visit (MIDMAV) VARSHA CHAUDHRY ([id number]) 1945 F Date Time Provider Department 02/13/24 10:40 AM MARYLU HEAD[facility] During your visit today, we recorded [...] echo on 03/24. She recently saw her chiropractic physician, he wanted her to take sotagliflozin as [...] Lab Results (more content not included)... Normal [facility] Creatinine Unsp time (U) [Ma ss/Vol]on 02-13-2024 Creatinine (U) [Mass/Vol] 52.0 mg/dL Normal 20.0-300.0 [facility] Comment on above: Order Comment: Earline porras Type: BLOOD SPECIMEN Ordering Facility: [facility] Address: [address] [place] [address] Performed By: #### 5 5454-3 #### [facility] CLIA [id number] [address] [place] [address] [place] PROTEIN CREATININE RATIOon 0 02-13-2024 Protein/Creatinine (U) [Mass ratio] 1.19 mg/mg High <0.15 mg/mg [facility] Prot Ur-mCncon 02-13-2024 Protein (U) [Mass/Vol] 62 mg/dL High 0-20 [facility] Comment on above: Order Comment: Earline porras Type: BLOOD SPECIMEN Ordering Facility: [facility] Address: [address] [place] [address] Performed By: #### 5 5454-3 #### [facility] CLIA [id number] [address] [place] [address] [place] Prot/Creat Uron 02-13-2024 Protein/Creatinine (U) [Mass ratio] 1.19 mg/mg High <0.15 [facility] Comment on above: Order Comment: Earline porras Type: BLOOD SPECIMEN Ordering Facility: [facility] Address: [address] [place] [address] Result Comment: Adul t Proteinuria Categories: <0.15 mg/mg is considered normal to mildly increased 0.15 - 0.50 mg/mg is considered moderately increased >0.50 mg/mg is considered severely increased KDIGO. (2013). KDIGO 2012 Clinical Practice Guideline for the Evaluation and Management of Chronic Kidney Disease. Official Journal of the International Society of Nephrology, 3(1), 1-150. Performed By: #### 5 5454-3 #### [facility] CLIA [id number] [address] [place] [address] [place] Protein/Creatinine (U) [Mass ratio]on 02-13-2024 Creatinine (U) [Mass/Vol] 52.0 mg/dL 20.0 - 300.0 mg/dL [facility] Protein (U) [Mass/Vol] 62 mg/dL High 0 - 20 mg/dL [facility] Creatinine (U) [Mass/Vol] 52.0 mg/dL Normal 20.0-300.0 [facility] Comment on above: Order Comment: Speci men Type: BLOOD SPECIMEN [facility]ing Facility: [facility] Address: [address] [place] [address] Performed By: #### 5 5454-3 #### [facility] CLIA [id number] [address] [place] [address] [place] Renal function 2000 panelon 02-13-2024 Albumin [Mass/Vol] 4.0 g/dL Normal 3.9-4.9 [facility] Comment on above: Order Comment: Speci men Type: BLOOD SPECIMEN [facility]ing Facility: [facility] Address: [address] [place] [address] Performed By: #### 5 5454-3 #### [facility] CLIA [id number] [address] [place] [address] [place] Anion gap [Moles/Vol] 12 mmol/L Normal 9-18 [facility] Comment on above: Order Comment: Speci men Type: BLOOD SPECIMEN [facility]ing Facility: [facility] Address: [address] [place] [address] Performed By: #### 5 5454-3 #### [facility] CLIA [id number] [address] [place] [address] [place] Calcium [Mass/Vol] 9.5 mg/dL Normal 8.5-10.2 [facility] Comment on above: Order Comment: Speci men Type: BLOOD SPECIMEN Ordering Facility: [facility] Address: [address] [place] [address] Performed By: #### 5 5454-3 #### [facility] CLIA [id number] [address] [place] [address] [place] Chloride [Moles/Vol] 103 mmol/L Normal 97-105 [facility] Comment on above: Order Comment: Speci men Type: BLOOD SPECIMEN [facility]ing Facility: [facility] Address: [address] [place] [address] Performed By: #### 5 5454-3 #### [facility] CLIA [id number] [address] [place] [address] [place] CO2 [Moles/Vol] 28 mmol/L Normal 22-30 [facility] Comment on above: Order Comment: Speci men Type: BLOOD SPECIMEN Ordering Facility: [facility] Address: [address] [place] [address] Performed By: #### 5 5454-3 #### [facility] CLIA [id number] [address] [place] [address] [place] Creatinine [Mass/Vol] 2.02 mg/dL High 0.58-0.96 [facility] Comment on above: Order Comment: Speci men Type: BLOOD SPECIMEN Ordering Facility: [facility] Address: [address] [place] [address] Performed By: #### 5 5454-3 #### [facility] CLIA [id number] [address] [place] [address] Creatinine and Glomerular filtration rate.predicted panel (S/P/Bld) 25 mL/min/1.73m??? Low >=60 [facility] Comment on above: Order Comment: Speci men Type: BLOOD SPECIMEN [facility]ing Facility: [facility] Address: [address] [place] [address] Result Comment: Malini mated Glomerular Filtration Rate [...] By: #### 5 5454-3 #### [facility] CLIA [id number] [address] [place] [address] [place] Glucose [Mass/Vol] 92 mg/dL Normal 74-99 [facility] Comment on above: Order Comment: Earline porras Type: BLOOD SPECIMEN Ordering Facility: [facility] Address: [address] [place] [address] Result Comment: The [place] Diabetes Association (ADA) provides guidance for cutoff [...] Standards of Medical Care in Diabetes 2016, [place] Diabetes Association. Diabetes Care. 2016.39(Suppl 1). Performed By: #### 5 5454-3 #### [facility] CLIA [id number] [address] [place] [address] [place] Phosphate [Mass/Vol] 4.2 mg/dL Normal 2.7-4.8 [facility] Comment on above: Order Comment: Earline porras Type: BLOOD SPECIMEN [facility]ing Facility: [facility] Address: [address] [place] [address] Performed By: #### 5 5454-3 #### [facility] CLIA [id number] [address] [place] [address] [place] Potassium [Moles/Vol] 4.3 mmol/L Normal 3.7-5.1 [facility] Comment on above: Order Comment: Earline porras Type: BLOOD SPECIMEN [facility]ing Facility: [facility] Address: [address] [place] [address] Performed By: #### 5 5454-3 #### [facility] CLIA [id number] [address] [place] [address] [place] Sodium [Moles/Vol] 143 mmol/L Normal 136-144 [facility] Comment on above: Order Comment: Speci men Type: BLOOD SPECIMEN Ordering Facility: [facility] Address: [address] [place] [address] Performed By: #### 5 5454-3 #### [facility] CLIA [id number] [address] [place] [address] [place] Urea nitrogen [Mass/Vol] 96 mg/dL High 7-21 [facility] Comment on above: Order Comment: Speci men Type: BLOOD SPECIMEN Ordering Facility: [facility] Address: [address] [place] [address] Performed By: #### 5 5454-3 #### [facility] CLIA [id number] [address] [place] [address] [place] Urinalysis complete panel (U )on 02-13-2024 Bilirubin Ql (U) Negative Negative [facility] Clarity (Unsp spec) Clear Clear [facility] Color (U) Light Yellow yellow [facility] Epithelial cells LM.HPF (Urine sed) [#/Area] Few [facility] Glucose Test strip (U) [Mass/Vol] Negative Trace, Negative [facility] Hemoglobin Ql (U) Negative Negative, Trace [facility] Ketones Ql (U) Negative Negative, Trace [facility] Leukocyte esterase Test strip Ql (U) Negative Negative, 25 Jessi/uL [facility] Nitrite Ql (U) Negative Negative [facility] pH (U) 6.0 [pH] 5.0 - 8.0 [facility] Protein (U) [Mass/Vol] 1+ Abnormal Trace , Negative [facility] RBC LM.HPF (Urine sed) [#/Area] 0-3 /HPF 0-3 /HPF [facility] Specific gravity (U) [Rel density] 1.014 1.005 - 1.030 [facility] Urobilinogen Ql (U) Normal Normal [facility] WBC LM.HPF (Urine sed) [#/Area] 0-5 /HPF 0-5 /HPF [facility] Bilirubin Ql (U) Negative Normal Negative [facility] Comment on above: Order Comment: Speci men Type: URINE SPECIMEN [facility]ing Facility: [facility] Address: [address] [place] [address] Performed By: #### 2 4356-8 #### [facility] [id number] [address] [place] [address] [place] Clarity (Unsp spec) Clear Normal Clear [facility] Comment on above: Order Comment: Speci men Type: URINE SPECIMEN [facility]ing Facility: [facility] Address: [address] [place] [address] Performed By: #### 2 4356-8 #### [facility] [id number] [place] [address] [place] Color (U) Light Yellow Normal yellow [facility] Comment on above: Order Comment: Speci men Type: URINE SPECIMEN [facility]ing Facility: [facility] Address: [address] [place] [address] Performed By: #### 2 4356-8 #### [facility] [id number] [address] [place], [place] [address] [place] Epithelial cells LM.HPF (Urine sed) [#/Area] Few Normal [facility] Comment on above: Order Comment: Speci men Type: URINE SPECIMEN [facility] Facility: [facility] Address: [address] [place] [address] Performed By: #### 2 4356-8 #### [facility] [id number] [address] [place] [address] [place] Glucose Test strip (U) [Mass/Vol] Negative Normal Trace, Negative [facility] Comment on above: Order Comment: Speci men Type: URINE SPECIMEN [facility]ing Facility: [facility] Address: [address] [place] [address] Performed By: #### 2 4356-8 #### [facility] [place] [id number] [address] [place] [address] [place] Hemoglobin Ql (U) Negative Normal Negative, Trace [facility] Comment on above: Order Comment: Speci men Type: URINE SPECIMEN [facility] Facility: [facility] Address: [address] [place] [address] Performed By: #### 2 4356-8 #### [facility] [place] [id number] [place] [id number] [place] [address] OF [place] Ketones Ql (U) Negative Normal Negative, Trace [facility] Comment on above: Order Comment: Speci men Type: URINE SPECIMEN [facility]ing Facility: [facility] Address: [address] [place] [address] Performed By: #### 2 4356-8 #### [facility] [place] [id number] [place] [id number] [place] [address] OF [place] Leukocyte esterase Test strip Ql (U) Negative Normal Negative, 25 Jessi/uL [facility] Comment on above: Order Comment: Speci men Type: URINE SPECIMEN [facility]ing Facility: [facility] Address: [address] [place] [address] Performed By: #### 2 4356-8 #### [facility] [place] [id number] [address] [place] [address] [place] Nitrite Ql (U) Negative Normal Negative [facility] Comment on above: Order Comment: Speci men Type: URINE SPECIMEN [facility]ing Facility: [facility] Address: [address] [place] [address] Performed By: #### 2 4356-8 #### [facility] [place] [id number] [address] [place] [address] [place] pH (U) 6.0 [pH] Normal 5.0-8.0 [facility] Comment on above: Order Comment: Speci men Type: URINE SPECIMEN [facility]ing Facility: [facility] Address: [address] [place] [address] Performed By: #### 2 4356-8 #### [facility] [place] [id number] [address] [place] [address] [place] Protein (U) [Mass/Vol] 1+ Abnormal Trace , Negative [facility] Comment on above: Order Comment: Speci men Type: URINE SPECIMEN [facility]ing Facility: [facility] Address: [address] [place] [address] Performed By: #### 2 4356-8 #### [facility] [place] [id number] [address] [place] [address] [place] RBC LM.HPF (Urine sed) [#/Area] 0-3 /HPF Normal 0-3 /HPF [facility] Comment on above: Order Comment: Speci men Type: URINE SPECIMEN [facility]ing Facility: [facility] Address: [address] [place] [address] Performed By: #### 2 4356-8 #### [facility] [place] [id number] [address] [place] Specific gravity (U) [Rel density] 1.014 Normal 1.005-1.030 [facility] Comment on above: Order Comment: Speci men Type: URINE SPECIMEN [facility] Facility: [facility] Address: [address] [place] [address] Performed By: #### 2 4356-8 #### [facility] [place] [id number] [place] [address] Urobilinogen Ql (U) Normal Normal Normal [facility] Comment on above: Order Comment: Speci men Type: URINE SPECIMEN [facility] Facility: [facility] Address: [address] [place] [address] Performed By: #### 2 4356-8 #### [facility] [place] [id number] [place] [address] [place] WBC LM.HPF (Urine sed) [#/Area] 0-5 /HPF Normal 0-5 /HPF [facility] Comment on above: Order Comment: Speci men Type: URINE SPECIMEN [facility] Facility: [facility] Address: [address] [place] [address] Performed By: #### 2 4356-8 #### [facility] [place] [id number] [place] [address] [place] Thalia 02-06-2024 [facility] Telephone ([facility]) VARSHA CHAUDHRY ([id number]) 1945 F Date Time Provider Department 02/06/24 MARYLU HEADLEY During your visit today, we recorded the following information about you: Viola Vidal MA 02/06/2024 10:01 AM Signed Received lab results from [facility]. Placed in provider mailbox for review. [...] Fully Assessed Reason for Visit: Electronic Communication [020] Prescriptions as of 02/06/2024 - torsemide (DEMADEX) [...] Encounter Status:Closed by VIOLA VIDAL on 02/06/24 [facility] Telephone ([facility]) VARSHA CHAUDHRY ([id number]) 1945 F Date Time Provider Department 02/06/24 MARYLU HEADLEY [facility] During your visit today, we recorded [...] week/ will get lab work while at [facility] Transferred to scheduling to make lab appointment [...] AM Signed Called patient, she reports her gas worker put her on azithromycin for 5 days [...] Encounter Status:Closed by MARYLU HEADLEY on 02/06/24 [facility] CNOVon 12-26-2023 CNOV Office Visit ([facility]) VARSHA CHAUDHRY ([id number]) 1945 F Date Time Provider Department 12/26/23 2:30 PM TIERA SPANGLER [facility] During your visit today, we recorded the following information about you: Pulse Blood pressure Weight Height 75/minute 201/69 86.5 kg 1.575 m Tiera Spangler APRN.PIPER INSTALLER 12/26/2023 2:31 PM Signed Pt is an [...] labs DM-last A1C 8.9. She follows in [place], [place]. Continue endo follow up Plan No changes Labs prior to next follow up Has follow up in [address] Headley. Will keep appt and see me in 6 months Tiera Spangler APRN.PIPER INSTALLER Allergies As of Date: 12/26/2023 Noted Allergy Reaction ACETAMINOPHEN-CODEIN E 11/27/1999 14 - Other: See Comments BENZONATATE 11/27/1999 11 - Vomiting CEPHALEXIN 11/27/1999 2 - Rash CIPROFLOXACIN 11/12/2019 14 - Other: See Comments CLINDAMYCIN 11/12/2019 14 - Other: See Comments PENICILLINS 11/07/2014 14 - Other: See Comments Date Reviewed: 12/26/2023 Reviewed by: Krisnha Cox OCCA - Fully Assessed Reason for Visit: Follow Up [171] Primary Visit Diagnosis:Benign hypertension with chronic kidney disease, stage IV ([facility]) [I12.9, N18.4] Other Visit Diagnoses:CKD (chronic kidney disease) stage 4, GFR 15-29 ml/min ([facility]) [N18.4] Proteinuria, unspecified type [R80.9] Hyperkalemia [E87.5] 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, 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 [facility] VARSHA CHAUDHRY ([id number]) 1945 F Date Time Provider Department 12/06/23 MARYLU HEADLEY [facility] During your visit today, we recorded the following information about you: Marylu Headley DO 12/06/2023 8:30 AM Signed Please call [facility] for results of lab work done on Monday12/01/2023. Thank you Raul Hoffman OCCA 12/06/2023 1:28 PM Signed Called and left a vm with [facility] at [phone] to request lab results from 12/01/23 per [...] Encounter Status:Closed by [facility] VARSHA CHAUDHRY ([id number]) 1945 F Date Time Provider Department 11/21/23 TIERA SPANGLER [facility] During your visit today, we recorded the following information about you: Irina Allen RN 11/21/2023 2:15 PM Signed Patient?s identity has been confirmed by name and birthdate: Yes Call received from Varghese Gillespie at [facility] at 2:08 PM to [...] is FAXING results over to FAX # [phone] Tiera Spangler APRN.CNP 11/21/2023 2:33 PM Signed [...] is having her drive her to the [facility] Pt was asking if Provider Crys was going to call report / or tell them she was coming? I do not know if that is the plan; but I told pt not to wait and to have her take her there now but I would route this message to the PIPER INSTALLER/team Marylu Headley DO 11/28/2023 12:08 PM Signed [...] Encounter Status:Closed by TIERA SPANGLER on 11/21/23 [facility] Thalia 11-15-2023 [facility] Telephone ([facility]) VARSHA CHAUDHRY ([id number]) 1945 F Date Time Provider Department 11/15/23 TIERA SPANGLER [facility] During your visit today, we recorded the following information about you: Brigitte Phelps OCCA 11/15/2023 11:53 AM Signed Contacted patient to advise her of the message below from Tiera Spangler PROOF TECHNICIAN [facility]. She agreed with plan as stated below and will mostly likely get it done today. Please remind patient she is due for nonfasting labs at [facility]. I sent order last week. Brigitte PhelpsEFE Allergies As of Date: 11/15/2023 Noted Allergy [...] Status:Closed by BRIGITTE PHELPS on 11/15/23 Normal [facility] Telephone ([facility]) VARSHA CHAUDHRY ([id number]) 1945 F Date Time Provider Department 11/15/23 TIERA SPANGLER [facility] During your visit today, we recorded the following information about you: Liban Renee RN 11/15/2023 3:01 PM Signed [facility] is calling. The pt's BUN from the pt's lab draw was 124. They are faxing the entire panel results to [facility] fax number [phone] for your review. Tiera Spangler APRN.DORINA 11/15/2023 [...] up labs 11/21 BP 118/57 Tiera Spangler APRN.PIPER INSTALLER Allergies As of Date: 11/15/2023 Noted Allergy [...] systolic and diastolic congest*11/12/2019 Encounter Status:Closed by DRISS, LIBAN RN on 11/17/23 [facility] [place] 11-09-2023 OCTAVIO Telephone (MIDMAV) VARSHA CHAUDHRY ([id number]) 1945 F Date Time Provider Department 11/09/23 TIERA SPANGLERDEAngela During your visit today, we recorded the following information about you: Viola Saldivar 11/09/2023 9:12 AM Signed [facility] is requesting a signed order showing diagnosis for the Renal Function Panel lab that you ordered for her. The paper that the patient brought in to them doesn't have any diagnosis codes. Please fax over to: [phone] Patient is currently at the hospital to have this done . Patient has been identified by name and birthdate. Duration of symptoms: N/A Person calling: self Call patient at: on cell [phone] (home) Was an appointment scheduled: No Closing statement: Results or non-symptom based questions: Thank you for calling [facility], your call will be returned within [...] 11/09/23 [facility] VARSHA CHAUDHRY ([id number]) 1945 F Date Time Provider Department 11/09/23 TIERA SPANGLER During your visit today, we recorded the following information about you: Brigitte Phelps OCCA 11/09/2023 1:33 PM Signed Faxed lab order for renal function panel to [facility] at [phone] per Tiera Spangler PROOF TECHNICIAN PIPER INSTALLER. Please fax order for renal panel to [phone] EFE Mckeon Allergies As of Date: 11/09/2023 [...] Encounter Status:Closed by BRIGITTE PHELPS on 11/09/23 [facility] 11-06-2023 OCT[facility]IO Telephone ([facility]) VARSHA CHAUDHRY ([id number]) 1945 F Date Time Provider Department 11/06/23 TIERA SPANGLER [facility] During your visit today, we recorded the following information about you: Candace Veliz 11/06/2023 4:25 PM Signed Took a call from Erika who works at [facility]. Erika was calling with some critical lab values for Tiera Spangler. Took the following message over phone: Critical BUN of 117. Patient in question was verified using full name and date of . Candace Veliz November 06, 2023 4:24 PM Tiera Spangler APRN.[facility] 11/07/2023 3:30 PM Signed Called pt to [...] Encounter Status:Closed by CANDACE VELIZ on 11/06/23 [facility] 10-24-2023 OCTAVIO Telephone ([facility]) VARSHA CHAUDHRY ([id number]) 1945 F Date Time Provider Department 10/24/23 TIERA SPANGLER [facility] During your visit today, we recorded the following information about you: Tiera Spangler APRN.DORINA 10/24/2023 11:48 AM Signed Called pt to see if she completed repeat labs She did not She states she didn't receive order She has been ill for 1 week I asked she repeat labs next week once she is feeling better Will have order faxed again to [facility] and mailed to patient Tiera Spangler APRN.Akshat Woodruff 10/24/2023 12:17 PM Signed The requested document has been faxed to [phone]. Received a fax confirmation of OK on 10-24-23. The order has also been placed in the outgoing mail as well. Akshat Schaeffer Please mail order to patient and fax to [facility] as well. [phone] Renal panel Irina Allen, LLOYD 11/01/2023 2:43 [...] coughing? Please get back to her on [phone] Pt has an answering machine Akshat Schaeffer [...] Encounter Status:Closed by TIERA SPANGLER on 10/24/23 [facility] 10-23-2023 OCTAVIO Telephone (MIDDEV) VARSHA CHAUDHRY ([id number]) 1945 F Date Time Provider Department 10/23/23 TIERA SPANGLERDEAngela During your visit today, we recorded the following information about you: Akshat Schaeffer 10/23/2023 10:01 AM Signed ----- Message from Tiera Spangler APRN.PIPER INSTALLER sent at 10/23/2023 8:57 AM EST ----- Please call [facility] and have repeat BUN and creatinine faxed over Tiera Spangler APRN.Akshat Woodruff 10/24/2023 10:15 AM Addendum I called the Medical Records department at [facility]. My call went to voicemail. I did not leave a message. I will try to call back @ [phone], Medical Records press 2, then 1. Akshat Moreno 10/24/2023 10:16 AM Signed I called but did not speak with nor leave a voicemail as it is the same as below. Askhat Moreno 10/24/2023 11:28 AM Signed I called and spoke with the staff at [facility] lab. I informed the staff of the below request and gave the fax number of [phone]. The lab staff told me that they [...] Encounter Status:Closed by AKSHAT SCHAEFFER on 10/23/23 [facility] 10-10-2023 OCT[facility] Telephone ([facility]) VARSHA CHAUDHRY ([id number]) 1945 F Date Time Provider Department 10/10/23 [facility] During your visit today, we recorded the following information about you: Liban Zuñiga RN 10/10/2023 2:48 PM Signed Patient?s identity has been confirmed by name and birthdate: Yes Call received from Lela at [facility] to report a critical value for BUN with a result of 124. Tiera Spangler APRN CNP was notified of the result at 2:46PM. LLOYD Roldan Jennifer L, APRN.PIPER INSTALLER 10/10/2023 3:08 PM Signed Called pt to review labs Results not fully available to me from outside lab Would like to review BUN 124 Any med changes? How is BP? No answer[facility] T[facility]ang[facility] APRN.Lacie Coreas RN 10/11/2023 [...] Patient will be leaving to go to [place] at 9 AM today. Her brother is in the hospital. She will return home after 3pm. If calling back before 9, please call: [phone] (home); if after 9AM, please use patient's spouse's cell # [phone] (she doesn't have a cell) Tiera Spangler APRN.DORINA 10/11/2023 9:49 AM Signed Called pt re: below She feels well 93/44 this morning 93/48 yesterday Next cardiology follow up is Nov 072022 Decrease torsemide to 20mg daily Repeat labs in 1 week-fax order to [phone] Call for any swelling, increased weight or SOB Tiera Spangler APRN.Tiera Pugh APRN.DORINA 10/11/2023 9:50 AM Signed Addended by: TIERA SPANGLER on: 10/11/2023 09:50 AM Modules accepted: Akshat Weiss 10/31/2023 11:13 AM Signed I called and spoke with Varsha's Nestor. I informed him that I was calling at the request of Tiera Spangler in order to find out if Varsha had her labs done at [facility] as of yet. Nestor told [...] 3 10/11/2023 (more content not included)... Normal [facility] 10-09-2023 CNPN Telephone (INTMLN) VARSHA CHAUDHRY ([id number]) 1945 F Date Time Provider Department 10/09/23 TIERA SPANGLER During your visit today, we recorded the following information about you: Elva Beckford 10/09/2023 3:48 PM Signed Varsha Chaudhry is calling Tiera Spangler APRN.PIPER INSTALLER today needs labs ordered and faxed over to [facility]. F: [phone] No chief complaint on file. Patient has been identified by name and birthdate. Duration of symptoms: N/A Person calling: self Call patient at: at home [phone] (home) [phone] (cell) Was an appointment scheduled: No Closing statement: Results or non-symptom based questions: Thank you for calling [facility], your call will be returned within the next business day. Akshat Kaufman 10/09/2023 4:10 PM Signed The requested document has been faxed to [phone] . Received a fax confirmation of OK [...] Status:Closed by AKSHAT SCHAEFFER on 10/09/23 Normal [facility] BNPon 04-26-2023 Natriuretic peptide B (Bld) [Mass/Vol] 775.0 pg/mL Normal <=1,800.0 [facility] Comment on above: Performed By: #### C BC #### [facility] [address] [place] [address] Dr. Elaina Garnett BUNon 04-26-2023 Urea nitrogen [Mass/Vol] 68.0 mg/dL Critically high 7.0-18.0 [facility] Comment on above: Performed By: #### R SPLUS #### [facility] [address] [place] [address] Dr. Elaina Garnett CBC AUTO DIFFon 04-26-2023 BASO # 0.1 103/ul Normal 0.0-0.1 [facility] Comment on above: Performed By: #### C BC #### [facility] [address] [place] [address] Dr. Elaina Garnett Basophils/100 WBC (Bld) 1.0 % Normal 0.2-2.0 [facility] Comment on above: Performed By: #### C BC #### [facility] [address] [place] [address] Dr. Elaina Garnett EO # 0.3 103/ul Normal 0.0-0.7 [facility] Comment on above: Performed By: #### C BC #### [facility] [address] [place] [address] Dr. Elaina Garnett Eosinophils/100 WBC (Bld) 2.8 % Normal 0.9-7.0 [facility] Comment on above: Performed By: #### C BC #### [facility] [address] [place] [address] Dr. Elaina Garnett Erythrocyte distribution width (RBC) [Ratio] 13.9 % Normal 11.0-15.0 [facility] Comment on above: Performed By: #### C BC #### [facility] [address] [place] [address] Dr. Elaina Garnett Hematocrit (Bld) [Volume fraction] 36.8 % Normal 36.0-48.0 [facility] Comment on above: Performed By: #### C BC #### [facility] [address] [place] [address] Dr. Elaina Garnett Hemoglobin (Bld) [Mass/Vol] 12.1 g/dL Normal 12.0-16.0 [facility] Comment on above: Performed By: #### C BC #### [facility] [address] [place] [address] Dr. Elaina Garnett IG # 0.03 10e3/ul Normal 0.00-0.03 [facility] Comment on above: Performed By: #### C BC #### [facility] [address] [place] [address] Dr. Elaina Garnett IG % 0.3 % Normal 0.0-0.5 [facility] Comment on above: Performed By: #### C BC #### [facility] [address] [place] [address] Dr. Elaina Garnett LYMPH # 2.5 103/ul Normal 1.2-3.8 [facility] Comment on above: Performed By: #### C BC #### [facility] [address] [place] [address] Dr. Elaina Garnett Lymphocytes/100 WBC (Bld) 27.7 % Normal 20.5-60.0 [facility] Comment on above: Performed By: #### C BC #### [facility] [address] [place] [address] Dr. Elaina Garnett MANUAL DIFF REQ NO Normal [facility] Comment on above: Performed By: #### C BC #### [facility] [address] [place] [address] Dr. Elaina Garnett MCH (RBC) [Entitic mass] 29.7 pg Normal 26.7-34.0 [facility] Comment on above: Performed By: #### C BC #### [facility] [address] [place] [address] Dr. Elaina Garnett MCHC (RBC) [Mass/Vol] 32.9 g/dL Normal 29.9-35.2 [facility] Comment on above: Performed By: #### C BC #### [facility] [address] [place] [address] Dr. Elaina Garnett MCV (RBC) [Entitic vol] 90.4 fL Normal 81.0-99.0 [facility] Comment on above: Performed By: #### C BC #### [facility] [address] [place] [address] Dr. Elaina Garnett MONO # 1.0 103/ul Critically high 0.3-0.8 [facility] Comment on above: Performed By: #### C BC #### [facility] [address] [place] [address] Dr. Elaina Garnett Monocytes/100 WBC (Bld) 10.7 % Normal 1.7-12.0 [facility] Comment on above: Performed By: #### C BC #### [facility] [address] [place] [address] Dr. Elaina Garnett NEUT # 5.1 103/ul Normal 1.4-6.5 [facility] Comment on above: Performed By: #### C BC #### [facility] [address] [place] [address] Dr. Elaina Garnett Neutrophils/100 WBC (Bld) 57.5 % Normal 43.0-75.0 [facility] Comment on above: Performed By: #### C BC #### [facility] [address] [place] [address] Dr. Elaina Garnett Platelet mean volume (Bld) [Entitic vol] 9.4 fL Critically low 9.5-13.5 [facility] Comment on above: Performed By: #### C BC #### [facility] [address] [place] [address] Dr. Elaina Garnett PLT 258 103/ul Normal 150-450 [facility] Comment on above: Performed By: #### C BC #### [facility] [address] [place] [address] Dr. Elaina Garnett RBC 4.07 106/ul Critically low 4.20-5.40 [facility] Comment on above: Performed By: #### C BC #### [facility] [address] [place] [address] Dr. Elaina Garnett WBC 8.9 103/ul Normal 4.0-11.0 [facility] Comment on above: Performed By: #### C BC #### [facility] [address] [place] [address] Dr. Elaina Garnett CREATININEon 04-26-2023 Creatinine [Mass/Vol] 1.69 mg/dL Critically high 0.55-1.02 [facility] Comment on above: Performed By: #### C BC #### [facility] [address] [place] [address] Dr. Elaina Garnett EGFR-AF [place]IZ[place] 35 mL/min/1.73m2 Critically low >=60 [facility] Comment on above: Performed By: #### C BC #### [facility] [address] [place] [address] Dr. Elaina Garnett EGFR-NON AF CITIZEN OF [place] 29 mL/min/1.73m2 Critically low >=60 [facility] Comment on above: Performed By: #### C BC #### [facility] [address] [place] [address] Dr. Elaina Garnett ELECTROLYTESon 04-26-2023 Anion gap [Moles/Vol] 13.2 mmol/L Normal [facility] Comment on above: Performed By: #### R SPLUS #### [facility] [address] [place] [address] Dr. Elaina Garnett Chloride [Moles/Vol] 106 mmol/L Normal 98-107 [facility] Comment on above: Performed By: #### R SPLUS #### [facility] [address] [place] [address] Dr. Elaina Garnett CO2 [Moles/Vol] 26.3 mmol/L Normal 21.0-32.0 [facility] Comment on above: Performed By: #### R SPLUS #### [facility] [address] [place] [address] Dr. Elaina Garnett Potassium [Moles/Vol] 5.5 mmol/L Critically high 3.5-5.1 [facility] Comment on above: Performed By: #### R SPLUS #### [facility] [address] [place] [address] Dr. Elaina Garnett Sodium [Moles/Vol] 140 mmol/L Normal 136-145 [facility] Comment on above: Performed By: #### R SPLUS #### [facility] [address] [place] [address] Dr. Elaina Garnett LIVER PROFILEon 04-26-2023 Albumin [Mass/Vol] 3.4 g/dL Normal 3.4-5.0 [facility] Comment on above: Performed By: #### R SPLUS #### [facility] [address] [place] [address] Dr. Elaina Garnett Albumin/Globulin [Mass ratio] 0.9 {ratio} Normal [facility] Comment on above: Performed By: #### R SPLUS #### [facility] [address] [place] [address] Dr. Elaina Garnett ALP [Catalytic activity/Vol] 91 U/L Normal 46-116 [facility] Comment on above: Performed By: #### R SPLUS #### [facility] [address] [place] [address] Dr. Elaina Garnett ALT [Catalytic activity/Vol] 18 U/L Normal 14-59 [facility] Comment on above: Performed By: #### R SPLUS #### [facility] [address] [place] [address] Dr. Elaina Garnett AST [Catalytic activity/Vol] 16 U/L Normal 15-37 [facility] Comment on above: Performed By: #### R SPLUS #### [facility] [address] [place] [address] Dr. Elaina Garnett BILI, CONJUGATED 0.1 mg/dL Normal 0.0-0.2 [facility] Comment on above: Performed By: #### R SPLUS #### [facility] [address] [place] [address] Dr. Elaina Garnett Bilirubin [Mass/Vol] 0.6 mg/dL Normal 0.2-1.0 [facility] Comment on above: Performed By: #### R SPLUS #### [facility] [address] [place] [address] Dr. Elaina Garnett Globulin (S) [Mass/Vol] 4.0 g/dL Normal T [facility] Comment on above: Performed By: #### R SPLUS #### [facility] [address] [place] [address] Dr. Elaina Garnett Protein [Mass/Vol] 7.4 g/dL Normal 6.4-8.2 [facility] Comment on above: Performed By: #### R SPLUS #### [facility] [address] [place] [address] Dr. Elaina Garnett ER URINE PROFILEon 3 Bilirubin Ql (U) Negative Normal NEGATIVE [facility] Comment on above: Performed By: #### R SPLUS #### [facility] [address] [place] [address] Dr. Elaina Garnett Clarity (U) CLEAR Normal CLEAR [facility] Comment on above: Performed By: #### R SPLUS #### [facility] [address] [place] [address] Dr. Elaina Garnett Color (U) LT. YELLOW Normal YELLOW [facility] Comment on above: Performed By: #### R SPLUS #### [facility] [address] [place] [address] Dr. Elaina MEEHAN A micrscopic examination will be performed if indicated. Normal [facility] Comment on above: Performed By: #### R SPLUS #### [facility] [address] [place] [address] Dr. Elaina Garnett Glucose Ql (U) Negative Normal NEGATIVE [facility] Comment on above: Performed By: #### R SPLUS #### [facility] [address] [place] [address] Dr. Elaina Garnett Hemoglobin Ql (U) Negative Normal NEGATIVE [facility] Comment on above: Performed By: #### R SPLUS #### [facility] [address] [place] [address] Dr. Elaina Garnett Ketones Ql (U) TRACE Abnormal NEGATIVE [facility] Comment on above: Performed By: #### R SPLUS #### [facility] [address] [place] [address] Dr. Elaina Garnett LEUKOCYTES Negative Normal NEGATIVE [facility] Comment on above: Performed By: #### R SPLUS #### [facility] [address] [place] [address] Dr. Elaina Garnett Nitrite Ql (U) Negative Normal NEGATIVE [facility] Comment on above: Performed By: #### R SPLUS #### [facility] [address] [place] [address] Dr. Elaina Garnett pH (U) 5.0 [pH] Normal 5-9 [facility] Comment on above: Performed By: #### R SPLUS #### [facility] [address] [place] [address] Dr. Elaina Garnett Protein (U) [Mass/Vol] 100 mg/dL Abnormal NEGAT DULCE/ TRACE [facility] Comment on above: Performed By: #### R SPLUS #### [facility] [address] [place] [address] Dr. Elaina Garnett SPEC GRAVITY 1.020 Normal 1.005-<=1.025 [facility] Comment on above: Performed By: #### R SPLUS #### [facility] [address] [place] [address] Dr. Elaina Garnett UR MICRO IND NOT INDICATED Normal [facility] Comment on above: Performed By: #### R SPLUS #### [facility] [address] [place] [address] Dr. Elaina Garnett Urobilinogen Qn (U) 0.2 {Danny'U}/dL Normal 0.2 - 1. 0 [facility] Comment on above: Performed By: #### R SPLUS #### [facility] [address] [place] [address] Dr. Elaina Garnett RESPIRATORY PANEL PLUSon Adenovirus Not detected Normal NOT DETECTED [facility] Comment on above: Performed By: #### R SPLUS #### [facility] [address] [place] [address] Dr. Elaina Camargo. Parapertusis Not detected Normal NOT DETECTED [facility] Comment on above: Performed By: #### R SPLUS #### [facility] [address] [place] [address] Dr. Elaina Watson Pertussis Not detected Normal NOT DETECTED [facility] Comment on above: Performed By: #### R SPLUS #### [facility] [address] [place] [address] Dr. Elaina Garnett Chlamydia Pneumoniae Not detected Normal NOT DETECTED [facility] Comment on above: Performed By: #### R SPLUS #### [facility] [address] [place] [address] Dr. Elaina Garnett Coronavirus 229E Not detected Normal NOT DETECTED [facility] Comment on above: Performed By: #### R SPLUS #### [facility] [address] [place] [address] Dr. Elaina Garnett Coronavirus HKU1 Not detected Normal NOT DETECTED [facility] Comment on above: Performed By: #### R SPLUS #### [facility] [address] [place] [address] Dr. Elaina Garnett Coronavirus NL63 Not detected Normal NOT DETECTED [facility] Comment on above: Performed By: #### R SPLUS #### [facility] [address] [place] [address] Dr. Elaina Garnett Coronavirus OC43 Not detected Normal NOT DETECTED [facility] Comment on above: Performed By: #### R SPLUS #### [facility] [address] [place] [address] Dr. Elaina Garnett Influenza A H1 Not detected Normal NOT DETECTED [facility] Comment on above: Performed By: #### R SPLUS #### [facility] [address] [place] [address] Dr. Elaina Garnett Influenza A H1 2009 Not detected Normal NOT DETECTED [facility] Comment on above: Performed By: #### R SPLUS #### [facility] [address] [address] [address] Elaina Garnett Influenza A H3 Not detected Normal NOT DETECTED [facility] Comment on above: Performed By: #### R SPLUS #### [facility] [address] [place] [address] Dr. Elaina Garnett Influenza B Not detected Normal NOT DETECTED [facility] Comment on above: Performed By: #### R SPLUS #### [facility] [address] [place] [address] Dr. Elaina Garnett Metapneumovirus Not detected Normal NOT DETECTED [facility] Comment on above: Performed By: #### R SPLUS #### [facility] [address] [place] [address] Dr. Elaina Garnett Mycoplas. Pneumoniae Not detected Normal NOT DETECTED [facility] Comment on above: Performed By: #### R SPLUS #### [facility] [address] [place] [address] Dr. Elaina Garnett Parainfluenza 1 Not detected Normal NOT DETECTED [facility] Comment on above: Performed By: #### R SPLUS #### [facility] [address] [place] [address] Dr. Elaina Garnett Parainfluenza 2 Not detected Normal NOT DETECTED [facility] Comment on above: Performed By: #### R SPLUS #### [facility] [address] [place] [address] Dr. Elaina Garnett Parainfluenza 3 Not detected Normal NOT DETECTED [facility] Comment on above: Performed By: #### R SPLUS #### [facility] [address] [place] [address] Dr. Elaina Garnett Parainfluenza 4 Not detected Normal NOT DETECTED [facility] Comment on above: Performed By: #### R SPLUS #### [facility] [address] [place] [address] Dr. Elaina Garnett Rhino/Enterovirus Not detected Normal NOT DETECTED [facility] Comment on above: Performed By: #### R SPLUS #### [facility] [address] [place] [address] Dr. Elaina Garnett RP2 Header 1 RESPIRATORY PANEL: VIRUSES Normal [facility] Comment on above: Performed By: #### R SPLUS #### [facility] [address] [place] [address] Dr. Elaina Garnett RP2 Header 2 RESPIRATORY PANEL: BACTERIA Normal [facility] Comment on above: Performed By: #### R SPLUS #### [facility] [address] [place] [address] Dr. Elaina Garnett RSV Not detected Normal NOT DETECTED [facility] Comment on above: Performed By: #### R SPLUS #### [facility] [address] [place] [address] Dr. Elaina Garnett SARS-CoV-2 (COVID-19) RNA BARB+probe Ql (Unsp spec) Not detected Normal NOT DETECTED [facility] Comment on above: Performed By: #### R SPLUS #### [facility] [address] [place] [address] Dr. Elaina Garnett XR CHEST 1 Von [...] JUAN GARRETT Date: 2023-03-25 23:48 Normal [facility] CARDIAC MIKE ADMITon 023 CK [Catalytic activity/Vol] 219 U/L Critically high 26-192 [facility] Comment on above: Performed By: #### C BC #### [facility] [address] [place] [address] Dr. Elaina Garnett CK.MB [Mass/Vol] 1.21 ng/mL Normal <=3.60 [facility] Comment on above: Performed By: #### C BC #### [facility] [address] [place] [address] Dr. Elaina Garnett HSTROP 17.4 pg/mL Normal 4.0-51.3 [facility] Comment on above: Result Comment: CUT- OFF POINTS HAVE BEEN ESTABLISHED BASED ON THE FOURTH UNIVERSAL DEFINITIONS OF MYOCARDIAL INFARCTION. THE UPPER REFERENCE LIMIT (URL) OF TROPONIN, DEFINED THE 99TH PERCENTILE OF cTnI DISTRIBUTION IN A REFERENCE POPULATION, HAS BEEN CONFIRMED THE DECISION THRESHOLD FOR IN DIAGNOSIS. Performed By: #### C BC #### [facility] [address] [place] [address] Dr. Elaina Garnett TAO 332 ng/mL Critically high 9-82 [facility] Comment on above: Performed By: #### C BC #### [facility] [address] [place] [address] Dr. Elaina Garnett CBC AUTO DIFFon 03-25-2023 BASO # 0.1 103/ul Normal 0.0-0.1 [facility] Comment on above: Performed By: #### C BC #### [facility] [address] [place] [address] Dr. Elaina Garnett Basophils/100 WBC (Bld) 0.6 % Normal 0.2-2.0 [facility] Comment on above: Performed By: #### C BC #### [facility] [address] [place] [address] Dr. Elaina Garnett EO # 0.2 103/ul Normal 0.0-0.7 [facility] Comment on above: Performed By: #### C BC #### [facility] [address] [place] [address] Dr. Elaina Garnett Eosinophils/100 WBC (Bld) 2.0 % Normal 0.9-7.0 [facility] Comment on above: Performed By: #### C BC #### [facility] [address] [place] [address] Dr. Elaina Garnett Erythrocyte distribution width (RBC) [Ratio] 12.9 % Normal 11.0-15.0 [facility] Comment on above: Performed By: #### C BC #### [facility] [address] [place] [address] Dr. Elaina Garnett Hematocrit (Bld) [Volume fraction] 33.6 % Critically low 36.0-48.0 [facility] Comment on above: Performed By: #### C BC #### [facility] [address] [place] [address] Dr. Elaina Garnett Hemoglobin (Bld) [Mass/Vol] 11.3 g/dL Critically low 12.0-16.0 [facility] Comment on above: Performed By: #### C BC #### [facility] [address] [address] [address] Elaina Garnett IG # 0.04 10e3/ul Critically high 0.00-0.03 [facility] Comment on above: Performed By: #### C BC #### [facility] [address] [place] [address] Dr. Elaina Garnett IG % 0.4 % Normal 0.0-0.5 [facility] Comment on above: Performed By: #### C BC #### [facility] [address] [place] [address] Dr. Elaina Garnett LYMPH # 1.8 103/ul Normal 1.2-3.8 [facility] Comment on above: Performed By: #### C BC #### [facility] [address] [place] [address] Dr. Elaina Garnett Lymphocytes/100 WBC (Bld) 19.5 % Critically low 20.5-60.0 [facility] Comment on above: Performed By: #### C BC #### [facility] [address] [place] [address] Dr. Elaina Garnett MANUAL DIFF REQ NO Normal [facility] Comment on above: Performed By: #### C BC #### [facility] [address] [place] [address] Dr. Elaina Garnett MCH (RBC) [Entitic mass] 30.8 pg Normal 26.7-34.0 [facility] Comment on above: Performed By: #### C BC #### [facility] [address] [place] [address] Dr. Elaina Granett MCHC (RBC) [Mass/Vol] 33.6 g/dL Normal 29.9-35.2 [facility] Comment on above: Performed By: #### C BC #### [facility] [address] [place] [address] Dr. Elaina Garnett MCV (RBC) [Entitic vol] 91.6 fL Normal 81.0-99.0 [facility] Comment on above: Performed By: #### C BC #### [facility] [address] [place] [address] Dr. Elaina Garnett MONO # 1.9 103/ul Critically high 0.3-0.8 [facility] Comment on above: Performed By: #### C BC #### [facility] [address] [place] [address] Dr. Elaina Garnett Monocytes/100 WBC (Bld) 19.7 % Critically high 1.7-12. 0 [facility] Comment on above: Performed By: #### C BC #### [facility] [address] [place] [address] Dr. Elaina aGrnett NEUT # 5.4 103/ul Normal 1.4-6.5 [facility] Comment on above: Performed By: #### C BC #### [facility] [address] [place] [address] Dr. Elaina Garnett Neutrophils/100 WBC (Bld) 57.8 % Normal 43.0-75.0 [facility] Comment on above: Performed By: #### C BC #### [facility] [address] [place] [address] Dr. Elaina Garnett Platelet mean volume (Bld) [Entitic vol] 9.7 fL Normal 9.5-13.5 [facility] Comment on above: Performed By: #### C BC #### [facility] [address] [place] [address] Dr. Elaina Garnett PLT 272 103/ul Normal 150-450 [facility] Comment on above: Performed By: #### C BC #### [facility] [address] [place] [address] Dr. Elaina Garnett RBC 3.67 106/ul Critically low 4.20-5.40 [facility] Comment on above: Performed By: #### C BC #### [facility] [address] [address] [address] Elaina Garnett WBC 9.4 103/ul Normal 4.0-11.0 [facility] Comment on above: Performed By: #### C BC #### [facility] [address] [place] [address] Dr. Elaina Garnett LACTATE/LACTIC ACIDon 2022 Lactate [Moles/Vol] 0.7 mmol/L Normal 0.4-2.0 [facility] Comment on above: Performed By: #### C BC #### [facility] [address] [place] [address] Dr. Elaina Garnett PROF CHEM 8 (BAS METB)on Anion gap [Moles/Vol] 13.5 mmol/L Normal [facility] Comment on above: Performed By: #### C BC #### [facility] [address] [place] [address] Dr. Elaina Garnett Calcium [Mass/Vol] 9.0 mg/dL Normal 8.5-10.1 [facility] Comment on above: Performed By: #### C BC #### [facility] [address] [place] [address] Dr. Elaina Garnett Chloride [Moles/Vol] 109 mmol/L Critically high 98-107 [facility] Comment on above: Performed By: #### C BC #### [facility] [address] [place] [address] Dr. Elaina Garnett CO2 [Moles/Vol] 21.9 mmol/L Normal 21.0-32.0 [facility] Comment on above: Performed By: #### C BC #### [facility] [address] [place] [address] Dr. Elaina Garnett Creatinine [Mass/Vol] 2.03 mg/dL Critically high 0.55-1.02 [facility] Comment on above: Performed By: #### C BC #### [facility] [address] [place] [address] Dr. Elaina Garnett EGFR-AF [place]IZEN [place] 29 mL/min/1.73m2 Critically low >=60 [facility] Comment on above: Performed By: #### C BC #### [facility] [address] [address] [address] Elaina Garnett EGFR-NON AF CITIZEN [place] 24 mL/min/1.73m2 Critically low >=60 [facility] Comment on above: Performed By: #### C BC #### [facility] [address] [address] [address] Elaina Garnett Glucose [Mass/Vol] 72 mg/dL Critically low 74-106 [facility] Comment on above: Performed By: #### C BC #### [facility] [address] [place] [address] Dr. Elaina Garnett Potassium [Moles/Vol] 4.4 mmol/L Normal 3.5-5.1 [facility] Comment on above: Performed By: #### C BC #### [facility] [address] [address] [address] Elaina Garnett Sodium [Moles/Vol] 140 mmol/L Normal 136-145 [facility] Comment on above: Performed By: #### C BC #### [facility] [address] [address] [address] Elaina Garnett Urea nitrogen [Mass/Vol] 70.0 mg/dL Critically high 7.0-18.0 [facility] Comment on above: Performed By: #### C BC #### [facility] [address] [address] [address] Elaina Garnett Urea nitrogen/Creatinine [Mass ratio] 34.5 mg/mg Normal [facility] Comment on above: Performed By: #### C BC #### [facility] [address] [place], [place] [id number] Dr. Elaina Garnett CBC panel Auto (Bld)on 01-10 Erythrocyte distribution width (RBC) [Ratio] 13.3 % 11.5 - 15.0 % [facility] Hematocrit (Bld) [Volume fraction] 39.4 % 36.0 - 46.0 % [facility] Hemoglobin (Bld) [Mass/Vol] 12.5 g/dL 11.5 - 15.5 g/dL [facility] MCH (RBC) [Entitic mass] 29.1 pg 26.0 - 34.0 pg [facility] MCHC (RBC) [Mass/Vol] 31.7 g/dL 30.5 - 36.0 g/dL [facility] MCV (RBC) [Entitic vol] 91.6 fL 80.0 - 100.0 fL [facility] Nucleated RBC (Bld) [#/Vol] <0.01 k/uL [facility] Platelet mean volume (Bld) [Entitic vol] 10.4 fL 9.0 - 12.7 fL [facility] Platelets (Bld) [#/Vol] 256 10*3/uL 150 - 400 k/uL [facility] RBC (Bld) [#/Vol] 4.30 10*6/uL 3.90 - 5.2 0 m/uL [facility] WBC (Bld) [#/Vol] 7.54 10*3/uL 3.70 - 11. 00 k/uL [facility] PTH INTACT BLDon 01-10-2023 Parathyrin.intact [Mass/Vol] 65 pg/mL 15 - 65 pg/mL [facility] Renal function 2000 panelon 01-10-2023 Albumin [Mass/Vol] 4.3 g/dL 3.9 - 4.9 g/dL [facility] Anion gap [Moles/Vol] 12 mmol/L 9 - 18 mmol/L [facility] Calcium [Mass/Vol] 9.9 mg/dL 8.5 - 10. 2 mg/dL [facility] Chloride [Moles/Vol] 102 mmol/L 97 - 10 5 mmol/L [facility] CO2 [Moles/Vol] 24 mmol/L 22 - 30 mmol/L [facility] Creatinine [Mass/Vol] 2.00 mg/dL High 0.58 - 0.96 mg/dL [facility] Estimated Glomerular Filtration Rate 25 mL/min/1.73m Low >=60 mL/min/1.73m [facility] Glucose [Mass/Vol] 309 mg/dL High 74 - 99 mg/dL [facility] Phosphate [Mass/Vol] 4.2 mg/dL 2.7 - 4 .8 mg/dL [facility] Potassium [Moles/Vol] 4.9 mmol/L 3.7 - 5.1 mmol/L [facility] Sodium [Moles/Vol] 138 mmol/L 136 - 144 mmol/L [facility] Urea nitrogen [Mass/Vol] 81 mg/dL High 7 - 21 mg/dL [facility] CARDIAC MIKE 3-6on 2 CK [Catalytic activity/Vol] 107 U/L Normal 26-192 [facility] Comment on above: Performed By: #### C MREP #### [facility] [address] [place] [address] Dr. Elaina Garnett CK.MB [Mass/Vol] 2.62 ng/mL Normal <=3.60 [facility] Comment on above: Performed By: #### C MREP #### [facility] [address] [place] [address] Dr. Elaina Garnett HSTROP 9.0 pg/mL Normal 4.0-51.3 [facility] Comment on above: Result Comment: CUT- OFF POINTS HAVE BEEN ESTABLISHED BASED ON THE FOURTH UNIVERSAL DEFINITIONS OF MYOCARDIAL INFARCTION. THE UPPER REFERENCE LIMIT (URL) OF TROPONIN, DEFINED THE 99TH PERCENTILE OF cTnI DISTRIBUTION IN A REFERENCE POPULATION, HAS BEEN CONFIRMED THE DECISION THRESHOLD FOR IN DIAGNOSIS. Performed By: #### C MREP #### [facility] [address] [place] [address] Dr. Elaina Garnett CBC AUTO DIFFon 11-05-2022 BASO # 0.1 103/ul Normal 0.0-0.1 [facility] Comment on above: Performed By: #### C BC #### [facility] [address] [place] [address] Dr. Elaina Garnett Basophils/100 WBC (Bld) 0.6 % Normal 0.2-2.0 [facility] Comment on above: Performed By: #### C BC #### [facility] [address] [place] [address] Dr. Elaina Garnett EO # 0.2 103/ul Normal 0.0-0.7 [facility] Comment on above: Performed By: #### C BC #### [facility] [address] [place] [address] Dr. Elaina Garnett Eosinophils/100 WBC (Bld) 2.1 % Normal 0.9-7.0 [facility] Comment on above: Performed By: #### C BC #### [facility] [address] [place] [address] Dr. Elaina Garnett Erythrocyte distribution width (RBC) [Ratio] 13.2 % Normal 11.0-15.0 [facility] Comment on above: Performed By: #### C BC #### [facility] [address] [place] [address] Dr. Elaina Garnett Hematocrit (Bld) [Volume fraction] 37.1 % Normal 36.0-48.0 [facility] Comment on above: Performed By: #### C BC #### [facility] [address] [place] [address] Dr. Elaina Garnett Hemoglobin (Bld) [Mass/Vol] 12.4 g/dL Normal 12.0-16.0 [facility] Comment on above: Performed By: #### C BC #### [facility] [address] [place] [address] Dr. Elaina Garnett IG # 0.02 10e3/ul Normal 0.00-0.03 [facility] Comment on above: Performed By: #### C BC #### [facility] [address] [place] [address] Dr. Elaina Garnett IG % 0.2 % Normal 0.0-0.5 [facility] Comment on above: Performed By: #### C BC #### [facility] [address] [place] [address] Dr. Elaina Garnett LYMPH # 2.0 103/ul Normal 1.2-3.8 [facility] Comment on above: Performed By: #### C BC #### [facility] [address] [place] [address] Dr. lEaina Garnett Lymphocytes/100 WBC (Bld) 23.4 % Normal 20.5-60.0 [facility] Comment on above: Performed By: #### C BC #### [facility] [address] [place] [address] Dr. Elaina Garnett MANUAL DIFF REQ NO Normal [facility] Comment on above: Performed By: #### C BC #### [facility] [address] [place] [address] Dr. Elaina Garnett MCH (RBC) [Entitic mass] 29.8 pg Normal 26.7-34.0 [facility] Comment on above: Performed By: #### C BC #### [facility] [address] [place] [address] Dr. Elaina Garnett MCHC (RBC) [Mass/Vol] 33.4 g/dL Normal 29.9-35.2 [facility] Comment on above: Performed By: #### C BC #### [facility] [address] [place] [address] Dr. Elaina Garnett MCV (RBC) [Entitic vol] 89.2 fL Normal 81.0-99.0 [facility] Comment on above: Performed By: #### C BC #### [facility] [address] [place] [address] Dr. Elaina Garnett MONO # 1.1 103/ul Critically high 0.3-0.8 [facility] Comment on above: Performed By: #### C BC #### [facility] [address] [place] [address] Dr. Elaina Garnett Monocytes/100 WBC (Bld) 12.1 % Critically high 1.7-12. 0 [facility] Comment on above: Performed By: #### C BC #### [facility] [address] [place] [address] Dr. Elaina Garnett NEUT # 5.4 103/ul Normal 1.4-6.5 [facility] Comment on above: Performed By: #### C BC #### [facility] [address] [place] [address] Dr. Elaina Garnett Neutrophils/100 WBC (Bld) 61.6 % Normal 43.0-75.0 [facility] Comment on above: Performed By: #### C BC #### [facility] [address] [place] [address] Dr. Elaina Garnett Platelet mean volume (Bld) [Entitic vol] 10.2 fL Normal 9.5-13.5 [facility] Comment on above: Performed By: #### C BC #### [facility] [address] [place] [address] Dr. Elaina Garnett PLT 202 103/ul Normal 150-450 [facility] Comment on above: Performed By: #### C BC #### [facility] [address] [place] [address] Dr. Elaina Garnett RBC 4.16 106/ul Critically low 4.20-5.40 [facility] Comment on above: Performed By: #### C BC #### [facility] [address] [place] [address] Dr. Elaina Garnett WBC 8.7 103/ul Normal 4.0-11.0 [facility] Comment on above: Performed By: #### C BC #### [facility] [address] [place] [address] Dr. Elaina Garnett POINT OF CARE GLUCOSEon 10-27 Glucose [Mass/Vol] 183 mg/dL Critically high 74-106 [facility] Comment on above: Performed By: #### C MP #### [facility] [address] [place] [address] Dr. Elaina Garnett PROF 14(COMP METB)on 022 Albumin [Mass/Vol] 3.0 g/dL Critically low 3.4-5.0 [facility] Comment on above: Performed By: #### C MP #### [facility] [address] [place] [address] Dr. Elaina Garnett Albumin/Globulin [Mass ratio] 0.8 {ratio} Normal [facility] Comment on above: Performed By: #### C MP #### [facility] [address] [place] [address] Dr. Elaina Garnett ALP [Catalytic activity/Vol] 81 U/L Normal 46-116 [facility] Comment on above: Performed By: #### C MP #### [facility] [address] [place] [address] Dr. Elaina Garnett ALT [Catalytic activity/Vol] 13 U/L Critically low 14-59 [facility] Comment on above: Performed By: #### C MP #### [facility] [address] [address] [address] Elaina Garnett Anion gap [Moles/Vol] 13.0 mmol/L Normal [facility] Comment on above: Performed By: #### C MP #### [facility] [address] [address] [address] Elaina Garnett AST [Catalytic activity/Vol] 17 U/L Normal 15-37 [facility] Comment on above: Performed By: #### C MP #### [facility] [address] [address] [address] Elaina Garnett Bilirubin [Mass/Vol] 0.5 mg/dL Normal 0.2-1.0 [facility] Comment on above: Performed By: #### C MP #### [facility] [address] [address] [address] Elaina Garnett Calcium [Mass/Vol] 8.3 mg/dL Critically low 8.5-10.1 [facility] Comment on above: Performed By: #### C MP #### [facility] [address] [address] [address] Elaina Garnett Chloride [Moles/Vol] 106 mmol/L Normal 98-107 [facility] Comment on above: Performed By: #### C MP #### [facility] [address] [address] [address] Elaina Garnett CO2 [Moles/Vol] 24.4 mmol/L Normal 21.0-32.0 [facility] Comment on above: Performed By: #### C MP #### [facility] [address] [address] [address] Elaina Garnett Creatinine [Mass/Vol] 2.13 mg/dL Critically high 0.55-1.02 [facility] Comment on above: Performed By: #### C MP #### [facility] [address] [address] [address] Elaina Garnett EGFR-AF [place]IZ[place] 27 mL/min/1.73m2 Critically low >=60 [facility] Comment on above: Performed By: #### C MP #### [facility] [address] [address] [address] Elaina Garnett EGFR-NON AF [place]IZEN OF [place] 22 mL/min/1.73m2 Critically low >=60 [facility] Comment on above: Performed By: #### C MP #### [facility] [address] [address] [address] Elaina Garnett Globulin (S) [Mass/Vol] 3.6 g/dL Normal [facility] Comment on above: Performed By: #### C MP #### [facility] [address] [address] [address] Elaina Garnett Glucose [Mass/Vol] 209 mg/dL Critically high 74-106 [facility] Comment on above: Performed By: #### C MP #### [facility] [address] [address] [address] Elaina Garnett Potassium [Moles/Vol] 4.4 mmol/L Normal 3.5-5.1 [facility] Comment on above: Performed By: #### C MP #### [facility] [address] [address] [address] Elaina Garnett Protein [Mass/Vol] 6.6 g/dL Normal 6.4-8.2 [facility] Comment on above: Performed By: #### C MP #### [facility] [address] [address] [address] Elaina Garnett Sodium [Moles/Vol] 139 mmol/L Normal 136-145 [facility] Comment on above: Performed By: #### C MP #### [facility] [address] [address] [address] Elaina Garnett Urea nitrogen [Mass/Vol] 101.0 mg/dL Critically high 7.0-18.0 [facility] Comment on above: Performed By: #### C MP #### [facility] [address] [address] [address] Elaina Garnett Urea nitrogen/Creatinine [Mass ratio] 47.4 mg/mg Normal [facility] Comment on above: Performed By: #### C MP #### [facility] [address] [place] [address] Dr. Elaina Garnett UA (CLEAN/CATCH) [employer]CH[employer]IAN SUPERVISOR/MICRO I F IND.on 11-05-2022 Bilirubin Ql (U) Negative Normal NEGATIVE [facility] Comment on above: Performed By: #### R SPLUS #### [facility] [address] [place] [address] Dr. Elaina Garnett Clarity (U) CLEAR Normal CLEAR [facility] Comment on above: Performed By: #### R SPLUS #### [facility] [address] [place] [address] Dr. Elaina Garnett Color (U) LT. YELLOW Normal YELLOW [facility] Comment on above: Performed By: #### R SPLUS #### [facility] [address] [place] [address] Dr. Elaina Garnett Glucose Ql (U) Negative Normal NEGATIVE [facility] Comment on above: Performed By: #### R SPLUS #### [facility] [address] [place] [address] Dr. Elaina Garnett Hemoglobin Ql (U) Negative Normal NEGATIVE [facility] Comment on above: Performed By: #### R SPLUS #### [facility] [address] [place] [address] Dr. Elaina Garnett Ketones Ql (U) Negative Normal NEGATIVE [facility] Comment on above: Performed By: #### R SPLUS #### [facility] [address] [place] [address] Dr. Elaina Garnett LEUKOCYTES Negative Normal NEGATIVE [facility] Comment on above: Performed By: #### R SPLUS #### [facility] [address] [place] [address] Dr. Elaina Garnett Nitrite Ql (U) Negative Normal NEGATIVE [facility] Comment on above: Performed By: #### R SPLUS #### [facility] [address] [place] [address] Dr. Elaina Garnett pH (U) 5.5 [pH] Normal 5-9 [facility] Comment on above: Performed By: #### R SPLUS #### [facility] [address] [place] [address] Dr. Elaina Garnett SPEC GRAVITY 1.010 Normal 1.005-<=1.025 [facility] Comment on above: Performed By: #### R SPLUS #### [facility] [address] [place] [address] Dr. Elaina Garnett UA PROTEIN Negative Normal NEGATIVE/ TRACE [facility] Comment on above: Performed By: #### R SPLUS #### [facility] [address] [place] [address] Dr. Elaina Garnett UR MICRO IND NOT INDICATED Normal [facility] Comment on above: Performed By: #### R SPLUS #### [facility] [address] [place] [address] Dr. Elaina Garnett Urobilinogen Qn (U) 0.2 {Danny'U}/dL Normal 0.2 - 1. 0 [facility] Comment on above: Performed By: #### R SPLUS #### [facility] [address] [place] [address] Dr. Elaina Garnett BLOOD GASES BTYon 11-04-2022 ALLENS TEST Positive [facility] Comment on above: Result Comment: TEST NOT PERFORMED- RESULTED IN ERROR Previously reported as: POSITIVE On 11/04/2022 17:32 By LM4 Performed By: #### C BC #### [facility] [address] [place] [address] Dr. Elaina Garnett BIPAP PRESSURE Normal [facility] Comment on above: Performed By: #### C BC #### [facility] [address] [place] [address] Dr. Elaina Garnett CPAP [facility] Comment on above: Performed By: #### C BC #### [facility] [address] [place] [address] Dr. Elaina Garnett FIO2 [facility] Comment on above: Performed By: #### C BC #### [facility] [address] [place] [address] Dr. Elaina Garnett LPM [facility] Comment on above: Performed By: #### C BC #### [facility] [address] [address] [address] Elaina Garnett MINUTE VOLUME Normal [facility] Comment on above: Performed By: #### C BC #### [facility] [address] [address] [address] Elaina Garnett PEEP [facility] Comment on above: Performed By: #### C BC #### [facility] [address] [address] [address] [facility] Comment on above: Performed By: #### C BC #### [facility] [address] [address] [address] Elaina Garnett [facility] Comment on above: Performed By: #### C BC #### [facility] [address] [place] [address] Dr. Elaina Garnett RATE [facility] Comment on above: Performed By: #### C BC #### [facility] [address] [place] [address] Dr. Elaina Garnett VENT MODE [facility] Comment on above: Performed By: #### C BC #### [facility] [address] [place] [address] Dr. Elaina Garnett [facility] Comment on above: Performed By: #### C BC #### [facility] [address] [place] [address] Dr. Elaina Tavarez 11-04-2022 Natriuretic peptide B (Bld) [Mass/Vol] 356.0 pg/mL Normal <=1,800.0 [facility] Comment on above: Performed By: #### C BC #### [facility] [address] [place] [address] Dr. Elaina Reid 11-04-2022 Urea nitrogen [Mass/Vol] 112.0 mg/dL Critically high 7.0-18.0 [facility] Comment on above: Performed By: #### B UN #### [facility] [address] [place] [address] Dr. Elaina Garnett CARDIAC MIKE 3-6on 2 CK [Catalytic activity/Vol] 100 U/L Normal 26-192 [facility] Comment on above: Performed By: #### C MREP #### [facility] [address] [place] [address] Dr. Elaina Garnett CK.MB [Mass/Vol] 2.57 ng/mL Normal <=3.60 [facility] Comment on above: Performed By: #### C MREP #### [facility] [address] [place] [address] Dr. Elaina Garnett HSTROP 7.3 pg/mL Normal 4.0-51.3 [facility] Comment on above: Result Comment: CUT- OFF POINTS HAVE BEEN ESTABLISHED BASED ON THE FOURTH UNIVERSAL DEFINITIONS OF MYOCARDIAL INFARCTION. THE UPPER REFERENCE LIMIT (URL) OF TROPONIN, DEFINED THE 99TH PERCENTILE OF cTnI DISTRIBUTION IN A REFERENCE POPULATION, HAS BEEN CONFIRMED THE DECISION THRESHOLD FOR IN DIAGNOSIS. Performed By: #### C MREP #### [facility] [address] [place] [address] Dr. Elaina Garnett CARDIAC MIKE ADMITon 022 CK [Catalytic activity/Vol] 97 U/L Normal 26-192 [facility] Comment on above: Performed By: #### C BC #### [facility] [address] [place] [address] Dr. Elaina Garnett CK.MB [Mass/Vol] 2.35 ng/mL Normal <=3.60 [facility] Comment on above: Performed By: #### C BC #### [facility] [address] [place] [address] Dr. Elaina Garnett HSTROP 7.8 pg/mL Normal 4.0-51.3 [facility] Comment on above: Result Comment: CUT- OFF POINTS HAVE BEEN ESTABLISHED BASED ON THE FOURTH UNIVERSAL DEFINITIONS OF MYOCARDIAL INFARCTION. THE UPPER REFERENCE LIMIT (URL) OF TROPONIN, DEFINED THE 99TH PERCENTILE OF cTnI DISTRIBUTION IN A REFERENCE POPULATION, HAS BEEN CONFIRMED THE DECISION THRESHOLD FOR IN DIAGNOSIS. Performed By: #### C BC #### [facility] [address] [place] [address] Dr. Elaina Garnett TAO 155 ng/mL Critically high 9-82 [facility] Comment on above: Performed By: #### C BC #### [facility] [address] [place] [address] Dr. Elaina Garnett CBC AUTO DIFFon 11-04-2022 BASO # 0.1 103/ul Normal 0.0-0.1 [facility] Comment on above: Performed By: #### R SPLUS #### [facility] [address] [place] [address] Dr. Elaina Garnett Basophils/100 WBC (Bld) 1.0 % Normal 0.2-2.0 [facility] Comment on above: Performed By: #### R SPLUS #### [facility] [address] [place] [address] Dr. Elaina Garnett EO # 0.3 103/ul Normal 0.0-0.7 [facility] Comment on above: Performed By: #### R SPLUS #### [facility] [address] [place] [address] Dr. Elaina Garnett Eosinophils/100 WBC (Bld) 3.2 % Normal 0.9-7.0 [facility] Comment on above: Performed By: #### R SPLUS #### [facility] [address] [place] [address] Dr. Elaina Garnett Erythrocyte distribution width (RBC) [Ratio] 13.2 % Normal 11.0-15.0 [facility] Comment on above: Performed By: #### R SPLUS #### [facility] [address] [place] [address] Dr. Elaina Garnett Hematocrit (Bld) [Volume fraction] 42.5 % Normal 36.0-48.0 [facility] Comment on above: Performed By: #### R SPLUS #### [facility] [address] [place] [address] Dr. Elaina Garnett Hemoglobin (Bld) [Mass/Vol] 14.3 g/dL Normal 12.0-16.0 [facility] Comment on above: Performed By: #### R SPLUS #### [facility] [address] [place] [address] Dr. Elaina Garnett IG # 0.03 10e3/ul Normal 0.00-0.03 [facility] Comment on above: Performed By: #### R SPLUS #### [facility] [address] [place] [address] Dr. Elaina Garnett IG % 0.3 % Normal 0.0-0.5 [facility] Comment on above: Performed By: #### R SPLUS #### [facility] [address] [place] [address] Dr. Elaina Garnett LYMPH # 3.2 103/ul Normal 1.2-3.8 [facility] Comment on above: Performed By: #### R SPLUS #### [facility] [address] [place] [address] Dr. Elaina Garnett Lymphocytes/100 WBC (Bld) 32.2 % Normal 20.5-60.0 [facility] Comment on above: Performed By: #### R SPLUS #### [facility] [address] [place] [address] Dr. Elaina Garnett MANUAL DIFF REQ NO Normal [facility] Comment on above: Performed By: #### R SPLUS #### [facility] [address] [place] [address] Dr. Elaina Garnett MCH (RBC) [Entitic mass] 29.5 pg Normal 26.7-34.0 [facility] Comment on above: Performed By: #### R SPLUS #### [facility] [address] [place] [address] Dr. Elaina Garnett MCHC (RBC) [Mass/Vol] 33.6 g/dL Normal 29.9-35.2 [facility] Comment on above: Performed By: #### R SPLUS #### [facility] [address] [place] [address] Dr. Elaina Garnett MCV (RBC) [Entitic vol] 87.8 fL Normal 81.0-99.0 [facility] Comment on above: Performed By: #### R SPLUS #### [facility] [address] [place] [address] Dr. Elaina Garnett MONO # 1.5 103/ul Critically high 0.3-0.8 [facility] Comment on above: Performed By: #### R SPLUS #### [facility] [address] [place] [address] Dr. Elaina Garnett Monocytes/100 WBC (Bld) 14.5 % Critically high 1.7-12. 0 [facility] Comment on above: Performed By: #### R SPLUS #### [facility] [address] [address] [address] Elaina Garnett NEUT # 4.9 103/ul Normal 1.4-6.5 [facility] Comment on above: Performed By: #### R SPLUS #### [facility] [address] [place] [address] Dr. Elaina Garnett Neutrophils/100 WBC (Bld) 48.8 % Normal 43.0-75.0 [facility] Comment on above: Performed By: #### R SPLUS #### [facility] [address] [place] [address] Dr. Elaina Garnett Platelet mean volume (Bld) [Entitic vol] 9.8 fL Normal 9.5-13.5 [facility] Comment on above: Performed By: #### R SPLUS #### [facility] [address] [place] [address] Dr. Elaina Garnett PLT 277 103/ul Normal 150-450 [facility] Comment on above: Performed By: #### R SPLUS #### [facility] [address] [place] [address] Dr. Elaina Garnett RBC 4.84 106/ul Normal 4.20-5.40 [facility] Comment on above: Performed By: #### R SPLUS #### [facility] [address] [place] [address] Dr. Elaina Garnett WBC 10.0 103/ul Normal 4.0-11.0 [facility] Comment on above: Performed By: #### R SPLUS #### [facility] [address] [place] [address] HEAD WO CONon [...] JUAN GARRETT Date: 2022-11-04 17:14 Normal [facility] SARS-CoV-2 (COVID-19) RNA BARB+probe Ql (Unsp spec) Not detected Normal NOT DETECTED [facility] Comment on above: Result Comment: When [...] for this test is supported by the [employer] Service's declaration that [...] used). Performed By: #### R SPLUS #### [facility] [address] [place] [address] Dr. Elaina Garnett INFLUENZA A AND B AGon 11-04 INFLUANEGH SEE BELOW Normal [facility] Comment on above: Result Comment: Nega tive for Flu A protein angiten. Infection due to Flu A cannot be ruled out. Flu A angiten in the sample may be below the detection limit of the test. Performed By: #### C BC #### [facility] [address] [place] [address] [facility] SEE BELOW Normal [facility] Comment on above: Result Comment: Nega tive for Flu B protein antigen. Infection due to Flu B cannot be ruled out. Flu B antigen in the sample may be below the detection limit of the test. Performed By: #### C BC #### [facility] [address] [place] [address] Dr. Elaina Garnett INFLUENZA A AG Negative Normal NEGATIVE SEE COMMENT [facility] Comment on above: Performed By: #### C BC #### [facility] [address] [place] [address] Dr. Elaina Garnett INFLUENZA B AG Negative Normal NEGATIVE SEE COMMENT [facility] Comment on above: Performed By: #### C BC #### [facility] [address] [place] [address] Dr. Elaina Garnett INTERNAL CONTROLS Within Normal Limits Normal Wi thin Normal Limits [facility] Comment on above: Performed By: #### C BC #### [facility] [address] [place] [address] Dr. Elaina Garnett LIPASEon 11-04-2022 Lipase [Catalytic activity/Vol] 163.0 U/L Normal 73.0-393.0 [facility] Comment on above: Performed By: #### C BC #### [facility] [address] [place] [address] Dr. Elaina Garnett POINT OF CARE GLUCOSEon - Glucose [Mass/Vol] 246 mg/dL Critically high 74-106 [facility] Comment on above: Performed By: #### P OCGLUC #### [facility] [address] [place] [address] Dr. Elaina Garnett Glucose [Mass/Vol] 224 mg/dL Critically high 74-106 [facility] Comment on above: Performed By: #### P OCGLUC #### [facility] [address] [place] [address] Dr. Elaina Garnett Glucose [Mass/Vol] 113 mg/dL Critically high 74-106 [facility] Comment on above: Performed By: #### C BC #### [facility] [address] [place] [address] Dr. Elaina Garnett Glucose [Mass/Vol] 47 mg/dL Critically low 74-106 [facility] Comment on above: Result Comment: DR Lizeth KAM Performed By: #### P OCGLUC #### [facility] [address] [place] [address] Dr. Elaina Garnett Glucose [Mass/Vol] 127 mg/dL Critically high 74-106 T [facility] Comment on above: Performed By: #### C BC #### [facility] [address] [place] [address] Dr. Elaina Garnett PROF 14(COMP METB)on 022 Albumin [Mass/Vol] 4.1 g/dL Normal 3.4-5.0 [facility] Comment on above: Performed By: #### C BC #### [facility] [address] [place] [address] Dr. Elaina Garnett Albumin/Globulin [Mass ratio] 0.9 {ratio} Normal [facility] Comment on above: Performed By: #### C BC #### [facility] [address] [place] [address] Dr. Eliana Garnett ALP [Catalytic activity/Vol] 105 U/L Normal 46-116 [facility] Comment on above: Performed By: #### C BC #### [facility] [address] [place] [address] Dr. Elaina Garnett ALT [Catalytic activity/Vol] 19 U/L Normal 14-59 [facility] Comment on above: Performed By: #### C BC #### [facility] [address] [place] [address] Dr. Elaina Garnett Anion gap [Moles/Vol] 14.1 mmol/L Normal [facility] Comment on above: Performed By: #### C BC #### [facility] [address] [place] [address] Dr. Elaina Garnett AST [Catalytic activity/Vol] 20 U/L Normal 15-37 [facility] Comment on above: Performed By: #### C BC #### [facility] [address] [address] [address] Elaina Garnett Bilirubin [Mass/Vol] 0.6 mg/dL Normal 0.2-1.0 [facility] Comment on above: Performed By: #### C BC #### [facility] [address] [address] [address] Elaina Garnett Calcium [Mass/Vol] 9.8 mg/dL Normal 8.5-10.1 [facility] Comment on above: Performed By: #### C BC #### [facility] [address] [place] [address] Dr. Elaina Garnett Chloride [Moles/Vol] 102 mmol/L Normal 98-107 [facility] Comment on above: Performed By: #### C BC #### [facility] [address] [place] [address] Dr. Elaina Garnett CO2 [Moles/Vol] 27.7 mmol/L Normal 21.0-32.0 [facility] Comment on above: Performed By: #### C BC #### [facility] [address] [place] [address] Dr. Elaina Garnett Creatinine [Mass/Vol] 2.25 mg/dL Critically high 0.55-1.02 [facility] Comment on above: Performed By: #### C BC #### [facility] [address] [place] [address] Dr. Elaina Garnett EGFR-AF CITIZEN OF [place] 25 mL/min/1.73m2 Critically low >=60 [facility] Comment on above: Performed By: #### C BC #### [facility] [address] [place] [address] Dr. Elaina Garnett EGFR-NON AF CITIZEN OF [place] 21 mL/min/1.73m2 Critically low >=60 [facility] Comment on above: Performed By: #### C BC #### [facility] [address] [place] [address] Dr. Elaina Garnett Globulin (S) [Mass/Vol] 4.6 g/dL Normal T [facility] Comment on above: Performed By: #### C BC #### [facility] [address] [address] [address] Elaina Garnett Glucose [Mass/Vol] 27 mg/dL Critically low 74-106 [facility] Comment on above: Performed By: #### C BC #### [facility] [address] [address] [address] Elaina Garnett Potassium [Moles/Vol] 3.8 mmol/L Normal 3.5-5.1 [facility] Comment on above: Performed By: #### C BC #### [facility] [address] [address] [address] Elaina Garnett Protein [Mass/Vol] 8.7 g/dL Critically high 6.4-8.2 [facility] Comment on above: Performed By: #### C BC #### [facility] [address] [address] [address] Elaina Garnett Sodium [Moles/Vol] 140 mmol/L Normal 136-145 [facility] Comment on above: Performed By: #### C BC #### [facility] [address] [address] [address] Elaina Garnett Urea nitrogen [Mass/Vol] 117.0 mg/dL Critically high 7.0-18.0 [facility] Comment on above: Performed By: #### C BC #### [facility] [address] [address] [address] Elaina Garnett Urea nitrogen/Creatinine [Mass ratio] 52.0 mg/mg [facility] Comment on above: Performed By: #### C BC #### [facility] [address] [address] [address] Elaina Garnett PROTIMEon 11-04-2022 INR Coag (PPP) [Relative time] 1.00 {INR} Normal [facility] Comment on above: Performed By: #### C BC #### [facility] [address] [address] [address] Elaina Garnett INR GUIDELINES SEE BELOW Normal [facility] Comment on above: Result Comment: HOA RED INR: 2.0 - 3.0 CONDITIONS NOT LISTED BELOW 2.5 - 3.5 FOR PROSTHETIC HEART VALVE REPLACEMENT 2.5 - 3.5 RECURRENT THROMBOSIS Performed By: #### C BC #### [facility] [address] [place] [address] Dr. Elaina Garnett PT Coag (PPP) [Time] 10.8 s Normal 9.0-11.6 [facility] Comment on above: Performed By: #### C BC #### [facility] [address] [place] [address] Dr. Elaina Garnett PTTon 11-04-2022 aPTT Coag (Bld) [Time] 28.5 s Normal 22.3-36.2 [facility] Comment on above: Performed By: #### C BC #### [facility] [address] [place] [address] Dr. Elaina Garnett XR CHEST 1 Von [...] ELLEN AVALOS Date: 2022-11-04 16:54 Normal [facility] BNPon 09-14-2022 Natriuretic peptide B (Bld) [Mass/Vol] 685.0 pg/mL Normal <=1,800.0 [facility] Comment on above: Performed By: #### C MP #### [facility] [address] [place] [address] Dr. Elaina Garnett BUNon 09-14-2022 Urea nitrogen [Mass/Vol] 67.0 mg/dL Critically high 7.0-18.0 [facility] Comment on above: Performed By: #### C MP #### [facility] [address] [place] [address] Dr. Elaina Garnett CBC AUTO DIFFon 09-14-2022 BASO # 0.1 103/ul Normal 0.0-0.1 [facility] Comment on above: Performed By: #### C BC #### [facility] [address] [place] [address] Dr. Elaina Garnett Basophils/100 WBC (Bld) 1.1 % Normal 0.2-2.0 [facility] Comment on above: Performed By: #### C BC #### [facility] [address] [place] [address] Dr. Elaina Garnett EO # 0.3 103/ul Normal 0.0-0.7 [facility] Comment on above: Performed By: #### C BC #### [facility] [address] [place] [address] Dr. Elaina Garnett Eosinophils/100 WBC (Bld) 3.6 % Normal 0.9-7.0 [facility] Comment on above: Performed By: #### C BC #### [facility] [address] [place] [address] Dr. Elaina Garnett Erythrocyte distribution width (RBC) [Ratio] 13.8 % Normal 11.0-15.0 [facility] Comment on above: Performed By: #### C BC #### [facility] [address] [place] [address] Dr. Elaina Garnett Hematocrit (Bld) [Volume fraction] 40.7 % Normal 36.0-48.0 [facility] Comment on above: Performed By: #### C BC #### [facility] [address] [place] [address] Dr. Elaina Garnett Hemoglobin (Bld) [Mass/Vol] 13.4 g/dL Normal 12.0-16.0 [facility] Comment on above: Performed By: #### C BC #### [facility] [address] [place] [address] Dr. Elaina Garnett IG # 0.02 10e3/ul Normal 0.00-0.03 [facility] Comment on above: Performed By: #### C BC #### [facility] [address] [place] [address] Dr. Elaina Garnett IG % 0.2 % Normal 0.0-0.5 [facility] Comment on above: Performed By: #### C BC #### [facility] [address] [place] [address] Dr. Elaina Garnett LYMPH # 2.2 103/ul Normal 1.2-3.8 [facility] Comment on above: Performed By: #### C BC #### [facility] [address] [address] [address] Elaina Garnett Lymphocytes/100 WBC (Bld) 26.0 % Normal 20.5-60.0 [facility] Comment on above: Performed By: #### C BC #### [facility] [address] [place] [address] Dr. Elaina Garnett MANUAL DIFF REQ NO Normal [facility] Comment on above: Performed By: #### C BC #### [facility] [address] [place] [address] Dr. Elaina Garnett MCH (RBC) [Entitic mass] 30.7 pg Normal 26.7-34.0 [facility] Comment on above: Performed By: #### C BC #### [facility] [address] [place] [address] Dr. Elaina Garnett MCHC (RBC) [Mass/Vol] 32.9 g/dL Normal 29.9-35.2 [facility] Comment on above: Performed By: #### C BC #### [facility] [address] [place] [address] Dr. Elaina Garnett MCV (RBC) [Entitic vol] 93.3 fL Normal 81.0-99.0 [facility] Comment on above: Performed By: #### C BC #### [facility] [address] [place] [address] Dr. Elaina Garnett MONO # 1.0 103/ul Critically high 0.3-0.8 [facility] Comment on above: Performed By: #### C BC #### [facility] [address] [place] [address] Dr. Elaina Garnett Monocytes/100 WBC (Bld) 12.4 % Critically high 1.7-12. 0 [facility] Comment on above: Performed By: #### C BC #### [facility] [address] [place] [address] Dr. Elaina Garnett NEUT # 4.7 103/ul Normal 1.4-6.5 [facility] Comment on above: Performed By: #### C BC #### [facility] [address] [place] [address] Dr. Elaina Garnett Neutrophils/100 WBC (Bld) 56.7 % Normal 43.0-75.0 [facility] Comment on above: Performed By: #### C BC #### [facility] [address] [place] [address] Dr. Elaina Garnett Platelet mean volume (Bld) [Entitic vol] 9.7 fL Normal 9.5-13.5 [facility] Comment on above: Performed By: #### C BC #### [facility] [address] [place] [address] Dr. Elaina Garnett PLT 230 103/ul Normal 150-450 [facility] Comment on above: Performed By: #### C BC #### [facility] [address] [place] [address] Dr. Elaina Garnett RBC 4.36 106/ul Normal 4.20-5.40 [facility] Comment on above: Performed By: #### C BC #### [facility] [address] [place] [address] Dr. Elaina Garnett WBC 8.3 103/ul Normal 4.0-11.0 [facility] Comment on above: Performed By: #### C BC #### [facility] [address] [place] [address] Dr. Elaina Garnett CREATININEon 09-14-2022 Creatinine [Mass/Vol] 1.93 mg/dL Critically high 0.55-1.02 [facility] Comment on above: Performed By: #### C MP #### [facility] [address] [place] [address] Dr. Elaina Garnett EGFR-AF [place]IZEN OF [place] 30 mL/min/1.73m2 Critically low >=60 [facility] Comment on above: Performed By: #### C MP #### [facility] [address] [address] [address] Elaina Garnett EGFR-NON AF CITIZEN OF [place] 25 mL/min/1.73m2 Critically low >=60 [facility] Comment on above: Performed By: #### C MP #### [facility] [address] [address] [address] Elaina Garnett ELECTROLYTESon 09-14-2022 Anion gap [Moles/Vol] 13.1 mmol/L Normal [facility] Comment on above: Performed By: #### C MP #### [facility] [address] [address] [address] Elaina Garnett Chloride [Moles/Vol] 103 mmol/L Normal 98-107 [facility] Comment on above: Performed By: #### C MP #### [facility] [address] [address] [address] Elaina Garnett CO2 [Moles/Vol] 25.5 mmol/L Normal 21.0-32.0 [facility] Comment on above: Performed By: #### C MP #### [facility] [address] [address] [address] Elaina Garnett Potassium [Moles/Vol] 4.6 mmol/L Normal 3.5-5.1 [facility] Comment on above: Performed By: #### C MP #### [facility] [address] [address] [address] Elaina Garnett Sodium [Moles/Vol] 137 mmol/L Normal 136-145 [facility] Comment on above: Performed By: #### C MP #### [facility] [address] [address] [address] Elaina Garnett GLYCOHEMOGLOBIN A1Con 2021 ADA RECOMMENDATION SEE BELOW Normal [facility] Comment on above: Result Comment: ADA RECOMMENDED LIMIT 4.0 - 6.0 ADA THERAPEUTIC TARGET < 7.0 ACTION SUGGESTED > 7.0 Performed By: #### R SPLUS #### [facility] [address] [address] [address] Elaina Garnett Glucose [Mass/Vol] 209 mg/dL Normal [facility] Comment on above: Performed By: #### R SPLUS #### [facility] [address] [address] [address] Elaina Garnett HbA1c (Bld) [Mass fraction] 8.9 % Critically high 4.5-6.2 [facility] Comment on above: Performed By: #### R SPLUS #### [facility] [address] [address] [address] Elaina Garnett LIPID PROFILEon 09-14-2022 CHOL-HDL RATIO NORM SEE BELOW Normal [facility] Comment on above: Result Comment: 3.3 - 4.4 LOW RISK 4.4 - 7.1 AVERAGE RISK 7.1 - 11.0 MODERATE RISK >11.0 HIGH RISK Performed By: #### C MP #### [facility] [address] [place] [address] Dr. Elaina Garnett Cholesterol [Mass/Vol] 135 mg/dL Normal <=200 [facility] Comment on above: Performed By: #### C MP #### [facility] [address] [place] [address] Dr. Elaina Garnett Cholesterol in HDL [Mass/Vol] 39 mg/dL Critically low 40-60 [facility] Comment on above: Performed By: #### C MP #### [facility] [address] [address] [address] Elaina Garnett Cholesterol in LDL [Mass/Vol] 67.4 mg/dL Normal [facility] Comment on above: Performed By: #### C MP #### [facility] [address] [place] [address] Dr. Elaina Garnett Cholesterol.total/Farheen sterol in HDL [Mass ratio] 3.5 {ratio} Normal [facility] Comment on above: Performed By: #### C MP #### [facility] [address] [place] [address] Dr. Elaina Garnett HDL NORMAL > or = 60 mg/dl - LOW CARDIOVASCULAR RISK <40 mg/dl - HIGH CARDIOVASCULAR RISK Normal [facility] Comment on above: Performed By: #### C MP #### [facility] [address] [address] [address] Elaina Garnett LDL CALC NORMAL SEE BELOW Normal [facility] Comment on above: Result Comment: <100 mg/dl OPTIMAL 100 - 129 mg/dl NEAR OR ABOVE OPTIMAL 130 - 159 mg/dl BORDERLINE HIGH 160 - 189 mg/dl HIGH >190 mg/dl VERY HIGH Performed By: #### C MP #### [facility] [address] [address] [address] Elaina Garnett Triglyceride [Mass/Vol] 143 mg/dL Normal <=150 T [facility] Comment on above: Performed By: #### C MP #### [facility] [address] [address] [address] Elaina Garnett VLDL CALC 28.6 mg/dL Normal [facility] Comment on above: Performed By: #### C MP #### [facility] [address] [address] [address] Elaina Garnett LIVER PROFILEon 09-14-2022 Albumin [Mass/Vol] 3.4 g/dL Normal 3.4-5.0 [facility] Comment on above: Performed By: #### C MP #### [facility] [address] [address] [address] Elaina Garnett Albumin/Globulin [Mass ratio] 0.8 {ratio} Normal [facility] Comment on above: Performed By: #### C MP #### [facility] [address] [address] [address] Elaina Garnett ALP [Catalytic activity/Vol] 122 U/L Critically high 46-116 [facility] Comment on above: Performed By: #### C MP #### [facility] [address] [address] [address] Elaina Garnett ALT [Catalytic activity/Vol] 17 U/L Normal 14-59 [facility] Comment on above: Performed By: #### C MP #### [facility] [address] [address] [address] Elaina Garnett AST [Catalytic activity/Vol] 15 U/L Normal 15-37 [facility] Comment on above: Performed By: #### C MP #### [facility] [address] [place], [place] [address] Dr. Elaina VASQUEZI, CONJUGATED 0.1 mg/dL Normal 0.0-0.2 [facility] Comment on above: Performed By: #### C MP #### [facility] [address] [place], [place] [address] Dr. Elaina Garnett Bilirubin [Mass/Vol] 0.6 mg/dL Normal 0.2-1.0 [facility] Comment on above: Performed By: #### C MP #### [facility] [address] [address] [address] Elaina Garnett Globulin (S) [Mass/Vol] 4.1 g/dL Normal T [facility] Comment on above: Performed By: #### C MP #### [facility] [address] [address] [address] Elaina Garnett Protein [Mass/Vol] 7.5 g/dL Normal 6.4-8.2 [facility] Comment on above: Performed By: #### C MP #### [facility] [address] [address] [address] Elaina Garnett TSHon 09-14-2022 TSH 1.535 uIU/mL Normal 0.358-3.740 [facility] Comment on above: Performed By: #### C MP #### [facility] [address] [address] [address] Elaina Garnett MG MAMM SCREEN 3D PEDRO CADon 09-13-2022 MG MAMM SCREEN 3D PEDRO CAD Patient: VARSHA CHAUDHRY Exam Date: 09/13/2022 : 1945 Gender:F Ordering : DR SHAWN STOUT Admission #: [id number] Family : Order #: [id number] CLICK HERE TO VIEW EXAM RADIOLOGY REPORT [...] RADIATION TREATMENTS Family Cancers None LOCATION: [facility] BREAST COMPOSITION: Scattered areas fibroglandular density. [...] Benton M.D. on 09/14/2022 at 14:11 Normal [facility] RENAL FUNCTION PANELon 05-17 Albumin [Mass/Vol] 3.5 g/dL Normal 3.4-5.0 [facility] Comment on above: Performed By: #### C MP #### [facility] [address] [address] [address] Elaina Garnett Calcium [Mass/Vol] 8.8 mg/dL Normal 8.5-10.1 [facility] Comment on above: Performed By: #### C MP #### [facility] [address] [address] [address] Elaina Garnett Chloride [Moles/Vol] 106 mmol/L Normal 98-107 [facility] Comment on above: Performed By: #### C MP #### [facility] [address] [address] [address] Elaina Garnett CO2 [Moles/Vol] 29.1 mmol/L Normal 21.0-32.0 [facility] Comment on above: Performed By: #### C MP #### [facility] [address] [address] [address] Elaina Garnett Creatinine [Mass/Vol] 2.04 mg/dL Critically high 0.55-1.02 [facility] Comment on above: Performed By: #### C MP #### [facility] [address] [address] [address] Elaina Garnett EGFR-AF CITIZEN OF [place] 29 mL/min/1.73m2 Critically low >=60 [facility] Comment on above: Performed By: #### C MP #### [facility] [address] [address] [address] Elaina Garnett EGFR-NON AF CITIZEN OF [place] 24 mL/min/1.73m2 Critically low >=60 [facility] Comment on above: Performed By: #### C MP #### [facility] [address] [address] [address] Elaina Garnett Glucose [Mass/Vol] 46 mg/dL Critically low 74-106 [facility] Comment on above: Performed By: #### C MP #### [facility] [address] [address] [address] Elaina Garnett Phosphate [Mass/Vol] 4.2 mg/dL Normal 2.6-4.7 [facility] Comment on above: Performed By: #### C MP #### [facility] [address] [address] [address] Elaina Garnett Potassium [Moles/Vol] 4.6 mmol/L Normal 3.5-5.1 [facility] Comment on above: Performed By: #### C MP #### [facility] [address] [address] [address] Elaina Garnett Sodium [Moles/Vol] 142 mmol/L Normal 136-145 [facility] Comment on above: Performed By: #### C MP #### [facility] [address] [address] [address] Elaina Garnett Urea nitrogen [Mass/Vol] 65.0 mg/dL Critically high 7.0-18.0 [facility] Comment on above: Performed By: #### C MP #### [facility] [address] [address] [address] Elaina Garnett CBC panel Auto (Bld)on 05-03 Erythrocyte distribution width (RBC) [Ratio] 14.0 % 11.5 - 15.0 % [facility] Hematocrit (Bld) [Volume fraction] 43.3 % 36.0 - 46.0 % [facility] Hemoglobin (Bld) [Mass/Vol] 13.6 g/dL 11.5 - 15.5 g/dL [facility] MCH (RBC) [Entitic mass] 29.2 pg 26.0 - 34.0 pg [facility] MCHC (RBC) [Mass/Vol] 31.4 g/dL 30.5 - 36.0 g/dL [facility] MCV (RBC) [Entitic vol] 93.1 fL 80.0 - 100.0 fL [facility] Nucleated RBC (Bld) [#/Vol] 10*3/uL <0.01 k/uL [facility] Platelet mean volume (Bld) [Entitic vol] 9.8 fL 9.0 - 12.7 fL [facility] Platelets (Bld) [#/Vol] 247 10*3/uL 150 - 400 k/uL [facility] RBC (Bld) [#/Vol] 4.65 10*6/uL 3.90 - 5.2 0 m/uL [facility] WBC (Bld) [#/Vol] 8.50 10*3/uL 3.70 - 11. 00 k/uL [facility] HEPATIC FUNCTION PNLon 05-03 Albumin [Mass/Vol] 4.2 g/dL 3.9 - 4.9 g/dL [facility] ALP [Catalytic activity/Vol] 114 U/L 34 - 123 U/L [facility] ALT [Catalytic activity/Vol] 11 U/L 7 - 38 U/L [facility] AST [Catalytic activity/Vol] 17 U/L 13 - 35 U/L [facility] Bilirubin [Mass/Vol] 0.7 mg/dL 0.2 - 1 .3 mg/dL [facility] Bilirubin.conjugated [Mass/Vol] mg/dL <0.2 mg/dL [facility] Protein [Mass/Vol] 7.7 g/dL 6.3 - 8.0 g/dL [facility] LIPID PANEL BASICon 05-03-20 22 Cholesterol [Mass/Vol] 155 mg/dL <200 mg/dL [facility] Cholesterol in HDL [Mass/Vol] 39 mg/dL Low >39 mg/dL [facility] Cholesterol in LDL [Mass/Vol] 62 mg/dL <100 mg/dL [facility] Cholesterol in LDL/Cholesterol in HDL [Mass ratio] 1.59 {ratio} <2.54 [facility] Cholesterol in VLDL [Mass/Vol] 54 mg/dL High <30 mg/dL [facility] Cholesterol non HDL [Mass/Vol] 116 mg/dL <130 mg/dL [facility] Cholesterol.total/Farheen sterol in HDL [Mass ratio] 3.97 {ratio} <5.10 [facility] Fasting Time 0 hrs [facility] Triglyceride [Mass/Vol] 272 mg/dL High <150 mg/dL [facility] MAGNESIUM [facility] 05-03-2022 Magnesium [Mass/Vol] 2.5 mg/dL High 1.7 - 2 .3 mg/dL [facility] NT PRO BNPon 05-03-2022 Natriuretic peptide.B prohormone N-Terminal [Mass/Vol] 340 pg/mL <450 pg/mL [facility] TSH [facility] 05-03-2022 TSH Qn 1.590 m[IU]/L 0.270 - 4.200 mIU/L [facility] Vital Signs Date Time Vital Sign Value Performing Clinician Facility 09-26-2024 13:20-0400 Body height 160 cm Edgard Abdi DPM Work Phone: [facility] 09-26-2024 13:20-0400 Body mass index (BMI) [Ratio] 35.07 kg/m2 Edgard Abdi DPM Work Phone: [facility] 09-26-2024 13:20-0400 Body weight 89.81 kg Edgard Abdi DPM Work Phone: [facility] 09-26-2024 13:20-0400 Diastolic blood pressure 77 mm[Hg] Edgard Abid DPM Work Phone: [facility] 09-26-2024 13:20-0400 Heart rate 78 /min Edgard Abdi DPM Work Phone: [facility] 09-26-2024 13:20-0400 Systolic blood pressure 128 mm[Hg] Edgard Abdi DPM Work Phone: [facility] 09-12-2024 13:28-0400 Body height 160 cm Edgard Abdi DPM Work Phone: [facility] 09-12-2024 13:28-0400 Body mass index (BMI) [Ratio] 35.07 kg/m2 Edgard Abdi DPM Work Phone: [facility] 09-12-2024 13:28-0400 Body weight 89.81 kg Edgrad Abdi DPM Work Phone: [facility] 09-12-2024 13:28-0400 Diastolic blood pressure 82 mm[Hg] Edgard Abdi DPM Work Phone: [facility] 09-12-2024 13:28-0400 Heart rate 87 /min Edgard Abdi DPM Work Phone: [facility] 09-12-2024 13:28-0400 Systolic blood pressure 125 mm[Hg] Edgard Abdi DPM Work Phone: [facility] 09-05-2024 13:27-0400 Body height 160 cm Edgard Abdi DPM Work Phone: [facility] 09-05-2024 13:27-0400 Body mass index (BMI) [Ratio] 35.07 kg/m2 Edgard Brown DPM Work Phone: [facility] 09-05-2024 13:27-0400 Body weight 89.81 kg Edgard Abdi DPM Work Phone: [facility] 09-05-2024 13:27-0400 Respiratory rate 18 /min Edgard Abdi DPM Work Phone: [facility] 07-23-2024 10:48-0400 Body height 157.5 cm Tiera Spangler PROOF TECHNICIAN.PIPER INSTALLER Work Phone: [facility] 07-23-2024 10:48-0400 Body mass index (BMI) [Ratio] 35.84 kg/m2 Tiera Spangler PROOF TECHNICIAN.PIPER INSTALLER Work Phone: [facility] 07-23-2024 10:48-0400 Body weight 88.9 kg Tiera Spangler PROOF TECHNICIAN.PIPER INSTALLER Work Phone: [facility] 07-23-2024 10:48-0400 Diastolic blood pressure 82 mm[Hg] Tiera Edwardsland PROOF TECHNICIAN.PIPER INSTALLER Work Phone: [facility] 07-23-2024 10:48-0400 Heart rate 75 /min Tiera Edwardsland PROOF TECHNICIAN.PIPER INSTALLER Work Phone: [facility] 07-23-2024 10:48-0400 Systolic blood pressure 161 mm[Hg] Tiera Edwardsland PROOF TECHNICIAN.PIPER INSTALLER Work Phone: [facility] 05-03-2024 12:01-0400 Body height 157.48 cm JR Ken Norton Work Phone: [facility] 05-03-2024 12:01-0400 Body temperature 98.3 [degF] JR Ken Norton Work Phone: [facility] 05-03-2024 12:01-0400 Body weight 83.91 kg JR Ken Norton Work Phone: [facility] 05-03-2024 12:01-0400 Diastolic blood pressure 71 mm[Hg] JR Ken Norton Work Phone: [facility] 05-03-2024 12:01-0400 Heart rate 82 /min JR Ken Norton Work Phone: [facility] 05-03-2024 12:01-0400 Respiratory rate 16 /min JR Ken Norton Work Phone: [facility] 05-03-2024 12:01-0400 SaO2% (BldA) [Mass fraction] 98 % JR Ken Norton Work Phone: [facility] 05-03-2024 12:01-0400 Systolic blood pressure 166 mm[Hg] JR Ken Norton Work Phone: [facility] 02-13-2024 10:42-0400 Body height 157.5 cm Marylu Headley DO Work Phone: [facility] 02-13-2024 10:42-0400 Body weight 86.5 kg Marylu Deitzer DO Work Phone: [facility] 02-13-2024 10:42-0400 Diastolic blood pressure 81 mm[Hg] Marylu Deitzer DO Work Phone: [facility] 02-13-2024 10:42-0400 Heart rate 59 /min Marylu Deitzer DO Work Phone: [facility] 02-13-2024 10:42-0400 Systolic blood pressure 158 mm[Hg] Marylu Deitzer DO Work Phone: [facility] 06-13-2023 14:45-0400 Body height 162.6 cm Tiera Crys PROOF TECHNICIAN.PIPER INSTALLER Work Phone: [facility] 06-13-2023 14:45-0400 Body weight 88.45 kg Tiera Crys PROOF TECHNICIAN.PIPER INSTALLER Work Phone: [facility] 06-13-2023 14:45-0400 Diastolic blood pressure 83 mm[Hg] Tiera Crys PROOF TECHNICIAN.PIPER INSTALLER Work Phone: [facility] 06-13-2023 14:45-0400 Heart rate 80 /min Tiera Crys PROOF TECHNICIAN.PIPER INSTALLER Work Phone: [facility] 06-13-2023 14:45-0400 Systolic blood pressure 130 mm[Hg] Tiera Crys PROOF TECHNICIAN.PIPER INSTALLER Work Phone: [facility] 01-10-2023 11:01-0500 Body height 162.6 cm Tiera Crys PROOF TECHNICIAN.PIPER INSTALLER Work Phone: [facility] 01-10-2023 11:01-0500 Body weight 86.64 kg Tiera Crys PROOF TECHNICIAN.PIPER INSTALLER Work Phone: [facility] 01-10-2023 11:01-0500 Diastolic blood pressure 81 mm[Hg] Tiera Crys PROOF TECHNICIAN.PIPER INSTALLER Work Phone: [facility] 01-10-2023 11:01-0500 Heart rate 76 /min Tiera Spangler PROOF TECHNICIAN.PIPER INSTALLER Work Phone: [facility] 01-10-2023 11:01-0500 Systolic blood pressure 130 mm[Hg] Tiera Spangler PROOF TECHNICIAN.PIPER INSTALLER Work Phone: [facility] 05-03-2022 15:05-0400 Body height 162.6 cm Tiera Edwardsland PROOF TECHNICIAN.PIPER INSTALLER Work Phone: [facility] 05-03-2022 15:05-0400 Body weight 89.63 kg Tiera Spangler PROOF TECHNICIAN.PIPER INSTALLER Work Phone: [facility] 05-03-2022 15:05-0400 Diastolic blood pressure 83 mm[Hg] Tiera Spangler PROOF TECHNICIAN.PIPER INSTALLER Work Phone: [facility] 05-03-2022 15:05-0400 Heart rate 75 /min Tiera Edwardsland PROOF TECHNICIAN.PIPER INSTALLER Work Phone: [facility] 05-03-2022 15:05-0400 Systolic blood pressure 182 mm[Hg] Tiera Spangler PROOF TECHNICIAN.PIPER INSTALLER Work Phone: [facility] Encounters Encounter Date Encounter Type Care Provider Facility Start: 10-17-2024 End: 10-17-2024 Office outpatient visit 25 minutes Edgard Abdi DPM Work Phone: [facility] Comment on above: Osteomyelitis of ank le or foot, acute, right (CMS/HCC) (Primary Dx); Type 2 diabetes mellitus with diabetic neuropathy, with long-term current use of insulin (CMS/HCC); Foot ulcer, right, with fat layer exposed (CMS/HCC); Acquired deformity of right toe Start: 10-17-2024 End: 10-17-2024 ambulatory EDGARD ABDI Not Available Start: 09-26-2024 End: 09-26-2024 Bamboo flowsheet Edgard Abdi DPM Work Phone: [facility] Start: 09-26-2024 End: 09-26-2024 Bamboo flowsheet Edgard Abdi DPM Work Phone: [facility] Start: 09-26-2024 End: 09-26-2024 Office outpatient visit 15 minutes Edgard Abdi DPM Work Phone: [facility] Comment on above: Osteomyelitis of ank le or foot, acute, right (CMS/HCC) (Primary Dx); Type 2 diabetes mellitus with diabetic neuropathy, with long-term current use of insulin ([facility]); Foot ulcer, right, with fat layer exposed (CMS/[facility]); Acquired deformity of right toe Start: 09-26-2024 End: 09-26-2024 ambulatory EDGARD ABDI Not Available Start: 09-12-2024 End: 09-12-2024 Bamboo flowsheet Edgard Abdi DPM Work Phone: [facility] Start: 09-12-2024 End: 09-12-2024 Bamboo flowsheet Edgard Abdi DPM Work Phone: [facility] Start: 09-12-2024 End: 09-12-2024 Office outpatient visit 15 minutes Edgard Abdi DPM Work Phone: [facility] Comment on above: Type 2 diabetes mya itus with diabetic neuropathy, with long- term current use of insulin ([facility]) (Primary Dx); Foot ulcer, right, with fat layer exposed ([facility]); Acquired deformity of right toe Start: 09-12-2024 End: 09-12-2024 ambulatory EDGARD ABDI Not Available Start: 09-05-2024 End: 09-05-2024 Bamboo flowsheet Edgard Abdi DPM Work Phone: [facility] Start: 09-05-2024 End: 09-05-2024 Bamboo flowsheet Edgard Abdi DPM Work Phone: [facility] Start: 09-05-2024 End: 09-05-2024 Office outpatient visit 15 minutes Edgard Abdi DPM Work Phone: [facility] Comment on above: Acquired deformity o f right toe (Primary Dx); Foot ulcer, right, with fat layer exposed ([facility]); Type 2 diabetes mellitus with diabetic neuropathy, with long-term current use of insulin ([facility]); Pain due to onychomycosis of toenails of both feet; Foot ulceration, right, with fat layer exposed ([facility]) Start: 09-05-2024 End: 09-05-2024 ambulatory EDGARD ABDI Not Available Start: 08-19-2024 End: 08-19-2024 ambulatory FARTUN SKINNER Not Available Start: 08-15-2024 End: 08-15-2024 ambulatory TIERA SPANGLER Facility:[facility] Start: 08-02-2024 End: 08-02-2024 Telephone encounter Teira Spangler APRN.PIPER INSTALLER Work Phone: Kidney Medicine Comment on above: Results Start: 08-01-2024 End: 08-01-2024 ambulatory TIERA SPANGLER Facility:[facility] Start: 07-31-2024 End: 07-31-2024 ambulatory Lasha R Avril [place] [place] Start: 07-31-2024 End: 07-31-2024 Patient encounter procedure Lashakatja Mackenzie [facility] Start: 07-24-2024 End: 07-24-2024 Telephone encounter Tiera Spangler PROOF TECHNICIAN.PIPER INSTALLER Work Phone: Kidney Medicine Comment on above: Results Start: 07-24-2024 End: 07-24-2024 ambulatory Lasha R Dolakilah [place] [place] Start: 07-24-2024 End: 07-24-2024 Patient encounter procedure Lashakatja Mackenzie [facility] Start: 07-23-2024 End: 07-23-2024 Patient encounter procedure Tiera Spangler PROOF TECHNICIAN.PIPER INSTALLER Work Phone: Kidney Medicine Comment on above: CKD (chronic kidney disease) stage 4, GFR 15-29 ml/min (HCC) (Primary Dx); Proteinuria, unspecified type; 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, with long-term current use of insulin (HCC); Benign hypertension with chronic kidney disease, stage IV ([facility]); Hyperkalemia; Vitamin D deficiency Start: 07-23-2024 End: 07-23-2024 ambulatory TIERA SPANGLER Facility:[facility] Start: 07-17-2024 End: 07-17-2024 ambulatory Lasha Mackenzie [place] [place] Start: 07-17-2024 End: 07-17-2024 Patient encounter procedure Lashakatja Mackenzie [facility] Start: 07-03-2024 End: 07-03-2024 ambulatory Lasha Mackenzie [place] [place] Start: 07-03-2024 End: 07-03-2024 Patient encounter procedure [facility] Leyda Mackenzie [facility] Start: 06-27-2024 End: 06-27-2024 ambulatory EDGARD Oliver ABDI Not Available Start: 06-18-2024 Telephone encounter Tiera figueroa RD Work Phone: Kidney Medicine Comment on above: Medication Assistanc e (LOKELMA) Start: 06-13-2024 End: 06-13-2024 ambulatory EDGARD A JIN Not Available Start: 06-06-2024 End: 06-06-2024 ambulatory [...] surgery center JR Ken Norton Work Phone: [facility] [place] Start: 05-03-2024 End: 05-03-2024 ambulatory JR Ken Norton Work Phone: [facility] Work Phone: Start: 04-25-2024 End: 04-25-2024 ambulatory [...] BROWN Not Available Start: 03-08-2024 Telephone encounter Maryluabdias gregory DO Work Phone: Kidney Medicine Comment on above: Critical Results Start: 03-07-2024 End: 03-07-2024 ambulatory EDGARD A BROWN Not Available Start: 02-22-2024 End: 02-22-2024 ambulatory EDGARD A BROWN Not Available Start: 02-14-2024 Telephone encounter Maryluabdias gregory DO Work Phone: Kidney Medicine Start: 02-13-2024 End: 02-13-2024 ambulatory TIERA SPANGLER Facility:[facility] Start: 02-13-2024 End: 02-13-2024 Patient encounter procedure Marylu Headley DO Work Phone: Kidney Medicine Comment on above: CKD (chronic kidney disease) stage 4, GFR 15-29 ml/min ([facility]) (Primary Dx); Proteinuria, unspecified type; 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, with long-term current use of insulin (HCC); Benign hypertension with chronic kidney disease, stage IV ([facility]); Azotemia; Hyperkalemia Start: 02-08-2024 End: 02-08-2024 ambulatory EDGARD A BROWN Not Available Start: 02-06-2024 Telephone encounter Maryluabdias gregory DO Work Phone: Kidney Medicine Comment on above: Electronic Communica tion Results Start: 02-05-2024 End: 02-05-2024 ambulatory FARTUN SKINNER Not Available Start: 02-01-2024 End: 02-01-2024 ambulatory EDGARD ABDI Not Available Start: 12-26-2023 End: 12-26-2023 ambulatory TIERA SPANGLER Facility:[facility] Start: 12-18-2023 End: 12-19-2023 ambulatory EDGARD A JIN Not Available Start: 11-28-2023 End: 11-28-2023 ambulatory SHAWN STOUT Not Available Start: 11-23-2023 End: 11-23-2023 ambulatory EDGARD A JIN Not Available Start: 11-15-2023 Telephone encounter Tiera Spangler PROOF TECHNICIAN.PIPER INSTALLER Work Phone: Kidney Medicine Comment on above: Patient Update Start: 11-08-2023 Orders Only Tiera Mendez and PROOF TECHNICIAN.PIPER INSTALLER Work Phone: Kidney Medicine Comment on above: Benign hypertension with chronic kidney disease, stage IV (HCC) (Primary Dx) Start: 11-06-2023 Telephone encounter Tiera Spangler PROOF TECHNICIAN.PIPER INSTALLER Work Phone: Kidney Medicine Comment on above: Results Start: 11-06-2023 End: 11-06-2023 ambulatory FARTUN SKINNER Not Available Start: 10-23-2023 Telephone encounter Tiera Spangler PROOF TECHNICIAN.PIPER INSTALLER Work Phone: Kidney Medicine Comment on above: Results Start: 10-10-2023 Telephone encounter Tiera Spangler PROOF TECHNICIAN.PIPER INSTALLER Work Phone: Kidney Medicine Comment on above: Critical Results Start: 10-09-2023 Telephone encounter Tiera Spangler PROOF TECHNICIAN.PIPER INSTALLER Work Phone: [facility] [place] Comment on above: Lab Orders Start: 07-20-2023 Telephone encounter Tiera Spangler PROOF TECHNICIAN.PIPER INSTALLER Work Phone: Internal Medicine [place] Comment on above: Medication Question Start: 06-13-2023 End: 06-13-2023 Patient encounter procedure Tiera Spangler PROOF TECHNICIAN.PIPER INSTALLER Work Phone: Kidney Medicine Comment on above: Benign hypertension with chronic kidney disease, stage IV (HCC) (Primary Dx); CKD (chronic kidney disease) stage 4, GFR 15-29 ml/min (HCC); Proteinuria, unspecified type; Hyperkalemia; 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, 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 Facility:[facility] Start: 03-25-2023 End: 03-26-[address] KEN NORTON Facility:[facility] Start: 01-10-2023 End: 01-10-2023 Patient encounter procedure Tiera Spangler APRN.PIPER INSTALLER Work Phone: Kidney Medicine Comment on above: Benign hypertension with chronic kidney disease, stage IV (HCC) (Primary Dx); CKD (chronic kidney disease) stage 4, GFR 15-29 ml/min (HCC); Proteinuria, unspecified type; Hyperkalemia; 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, unspecified whether residential insulin use (HCC); Vitamin D deficiency Start: 11-04-2022 End: 11-05-[address] SHAHRZAD AKBAR . Facility:[facility] Start: 09-14-2022 End: 09-15-[address] KEN NORTON Facility:[facility] Start: 09-13-2022 End: 09-14-[address] KEN NORTON Facility:[facility] Start: 05-17-2022 Telephone encounter Marylu gregory DO Work Phone: Kidney Medicine Comment on above: Results Start: 05-17-2022 End: 05-18-[address] KEN NORTON Facility:[facility] Start: 05-04-2022 Telephone encounter Tiera Spangler APRN.PIPER INSTALLER Work Phone: Kidney Medicine Comment on above: Results Start: 05-03-2022 End: 05-03-2022 Patient encounter procedure Tiera Spangler APRN.PIPER INSTALLER Work Phone: Kidney Medicine Comment on above: Benign hypertension with chronic kidney disease, stage IV (HCC) (Primary Dx); CKD (chronic kidney disease) stage 4, GFR 15-29 ml/min (HCC); Proteinuria, unspecified type; Hyperkalemia; 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, 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 or 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 (HCC); Vitamin D deficiency; Chronic combined systolic and diastolic congestive heart failure (HCC) Procedures Date Procedure Procedure Detail Performing Clinician Start: 05-03-2024 Sofía Norton Work Phone: Start: 01-20-2014 left carpal tunnel release Lasha Mackenzie Plan of Treatment Date Care Activity Detail Author Start: 12-05-2031 Urine microalbumin profile DTaP,Tdap,Td Vaccine (3 - Td or Tdap) [facility] Start: 02-12-2025 Complete blood count Hemoglobin/Dhaval tocrit [facility] Start: 02-12-2025 Creatinine measurement Serum Creatin ine [facility] Start: 12-10-2024 End: 12-10-2024 Patient encounter procedure 12/10/2024 1:00 PM EST Office Visit [facility] Medicine [id number] [place] [address] Tiera Spangler, PROOF TECHNICIAN.PIPER INSTALLER [address] [place] [address] 4-6 MONTH FOLLOW UP Kidney Medicine Comment on above: 4-6 MONTH FOLLOW UP Start: 12-02-2024 End: 12-02-2024 Patient encounter procedure 12/02/2024 3:30 PM EST Office Visit [facility] [address] [place] [address] Shawn Stout DO [address] [place] [address] [facility] Start: 11-22-2024 End: 02-21-2025 Renal function 2000 panel - Serum or Plasma RENAL FUNCTION PANEL Lab Routine CKD (chronic kidney disease) stage 4, GFR 15-29 ml/min (HCC) Proteinuria, unspecified type 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, with long-term current use of insulin (HCC) Benign hypertension with chronic kidney disease, stage IV (HCC) Hyperkalemia Vitamin D deficiency Expected: 11/22/2024, Expires: 02/21/2025 [facility] Comment on above: Expected: 11/22/2024 , Expires: 02/21/2025 Start: 11-14-2024 End: 11-14-2024 Patient encounter procedure 11/14/2024 1:30 PM EST Office Visit [facility] [address] [place] [id number] Fartun Skinner DO [address] [place] [address] [facility] [address] Start: 11-14-2024 End: 11-14-2024 Patient encounter procedure 11/14/2024 11:50 AM EST Procedure Visit [facility] [address] [facility] [address] [place] [id number] Edgard Abdi, DPKatja [address] [facility] [place] [place] [address] [place] [address] [facility] Start: 10-23-2024 Hemoglobin A1c measurement HbA1C [facility] Start: 09-26-2024 End: 10-26-2024 NM Bone Limited Views NM bone limited Imaging High Priority Osteomyelitis of ankle or foot, acute, right (CMS/HCC) Expected: 09/26/2024 (Approximate), Expires: 10/26/2024 [facility] Work Phone: Comment on above: Expected: 09/26/2024 (Approximate), Expires: 10/26/2024 Start: 09-26-2024 End: 09-26-2024 Patient encounter procedure [facility] Comment [...] procedure 09/05/2024 1:30 PM EDT Procedure Visit [facility] [address] [facility] [address] [place] [address] Edgard Abdi DPM [address] [facility] [place] [place] [address] [place] [address] Foot ulcer, right, with fat layer exposed (CMS/HCC) (Primary Dx); Type 2 diabetes mellitus with diabetic neuropathy, with long-term current use of insulin (CMS/HCC); Pain due to onychomycosis of toenails of both feet [facility] Comment on above: Foot ulcer, right, w ith fat layer exposed (CMS/HCC) (Primary Dx); Type 2 diabetes mellitus with diabetic neuropathy, with long-term current use of insulin (CMS/HCC); Pain due to onychomycosis of toenails of both feet Start: 08-20-2024 Hemoglobin A1c measurement HbA1C [facility] Start: 08-02-2024 End: 11-01-2024 Renal function 1999 panel - Serum or Plasma RENAL FUNCTION PANEL Lab Routine CKD (chronic kidney disease) stage 4, GFR 15-29 ml/min ([facility]) Expected: 08/02/2024, Expires: 11/01/2024 [facility] Work Phone: Comment on above: Expected: 08/02/2024 , Expires: 11/01/2024 Start: 07-28-2024 Covid-19 Vaccine () Covid-19 Vaccine () [facility] Start: 07-28-2024 Influenza vaccination [facility] Start: 07-24-2024 End: 10-23-2024 Renal function 2000 panel - Serum or Plasma RENAL FUNCTION PANEL Lab Routine Hyperkalemia Expected: 07/24/2024, Expires: 10/23/2024 [facility] Work Phone: Comment on above: Expected: 07/24/2024 , Expires: 10/23/2024 Start: 07-23-2024 End: 10-22-2024 25-hydroxyvitamin D3 [Mass/volume] in Serum or Plasma [facility] Comment on above: Expected: 07/23/2024 , Expires: 10/22/2024 Start: 07-23-2024 End: 10-22-2024 Parathyrin.intact [Mass/volume] in Serum or Plasma [facility] Work Phone: Comment on above: Expected: 07/23/2024 , Expires: 10/22/2024 Start: 06-25-2024 End: 06-25-2024 Patient encounter procedure 06/25/2024 11:00 AM EDT Office Visit Kidney Medicine [address] [place] [address] Tiera Spangler APRN.PIPER INSTALLER [address] [place] [address] 3 month f/u Kidney Medicine Comment on above: 3 month f/u Start: 05-07-2024 Hemoglobin A1c measurement HbA1C [facility] Start: 05-03-2024 [facility] Start: 01-10-2024 Complete blood count Hemoglobin/Dhaval tocrit [facility] Start: 01-10-2024 Creatinine measurement Serum Creatin ine [facility] Start: 01-10-2024 HEMOGLOBIN/HEMATOCRIT HEMOGLOBIN/HEM ATOCRIT [facility] Start: 01-10-2024 SERUM CREATININE SERUM CREATININE [facility] Start: 11-27-2023 Advance Directive Discussion Advance Directive Discussion [facility] Start: 11-27-2023 Behavioral Health Screening Behavioral Health Screening [facility] Start: 11-27-2023 Depression Assessment Depression Ass essment [facility] Start: 11-16-2023 Hemoglobin A1c measurement HbA1C [facility] Start: 11-16-2023 Hemoglobin A1c/Hemoglobin.total in Blood HbA1C [facility] Start: 11-08-2023 End: 02-07-2024 Renal function 2000 panel - Serum or Plasma RENAL FUNCTION PANEL Lab Routine Benign hypertension with chronic kidney disease, stage IV (HCC) Expected: 11/08/2023, Expires: 02/07/2024 [facility] Work Phone: Comment on above: Expected: 11/08/2023 , Expires: 02/07/2024 Start: 10-14-2023 End: 12-14-2023 25-hydroxyvitamin D3 [Mass/volume] in Serum or Plasma VITAMIN D 25 HYDROXY Lab Routine Benign hypertension with chronic kidney disease, stage IV (HCC) CKD (chronic kidney disease) stage 4, GFR 15-29 ml/min (HCC) Proteinuria, unspecified type Hyperkalemia 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, 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 or 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 (HCC) Expected: 10/14/2023, Expires: 12/14/2023 [facility] Work Phone: Comment on above: Expected: 10/14/2023 , Expires: 12/14/2023 Start: 10-14-2023 End: 12-14-2023 ALBUMIN/CREAT RATIO RND UR ALBUMIN/CREAT RATIO RND UR Lab Routine Benign hypertension with chronic kidney disease, stage IV (HCC) CKD (chronic kidney disease) stage 4, GFR 15-29 ml/min (HCC) Proteinuria, unspecified type Hyperkalemia 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, unspecified whether residential insulin use (HCC) Expected: 10/14/2023, Expires: 12/14/2023 [facility] Work Phone: Comment on above: Expected: 10/14/2023 , Expires: 12/14/2023 Start: 10-14-2023 End: 12-14-2023 CBC panel - Blood by Automated count CBC Lab Routine Benign hypertension with chronic kidney disease, stage IV (HCC) CKD (chronic kidney disease) stage 4, GFR 15-29 ml/min (HCC) Proteinuria, unspecified type Hyperkalemia 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, unspecified whether residential insulin use (HCC) Expected: 10/14/2023, Expires: 12/14/2023 [facility] Work Phone: Comment on above: Expected: 10/14/2023 , Expires: 12/14/2023 Start: 10-14-2023 End: 12-14-2023 Parathyrin.intact [Mass/volume] in Serum or Plasma PTH INTACT BLD Lab Routine Benign hypertension with chronic kidney disease, stage IV (HCC) CKD (chronic kidney disease) stage 4, GFR 15-29 ml/min (HCC) Proteinuria, unspecified type Hyperkalemia 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, unspecified whether residential insulin use (HCC) Expected: 10/14/2023, Expires: 12/14/2023 [facility] Work Phone: Comment on above: Expected: 10/14/2023 , Expires: 12/14/2023 Start: 10-14-2023 End: 12-14-2023 Renal function 2000 panel - Serum or Plasma RENAL FUNCTION PANEL Lab Routine Benign hypertension with chronic kidney disease, stage IV (HCC) CKD (chronic kidney disease) stage 4, GFR 15-29 ml/min (HCC) Proteinuria, unspecified type Hyperkalemia 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, unspecified whether residential insulin use (HCC) Expected: 10/14/2023, Expires: 12/14/2023 [facility] Work Phone: Comment on above: Expected: 10/14/2023 , Expires: 12/14/2023 Start: 08-11-2023 Hemoglobin A1c/Hemoglobin.total in Blood HBA1C [facility] Start: 07-28-2023 Covid-19 Vaccine () Covid-19 Vaccine () [facility] Start: 07-28-2023 [facility] Start: 05-03-2023 HEMOGLOBIN/HEMATOCRIT HEMOGLOBIN/HEM ATOCRIT [facility] Start: 05-03-2023 Hepatitis B surface antibody level LDL CHOLESTEROL [facility] Start: 05-03-2023 SERUM CREATININE SERUM CREATININE Cl [facility] Start: 01-10-2023 End: 03-12-2023 25-hydroxyvitamin D3 [Mass/volume] in Serum or Plasma [facility] Work Phone: Comment on above: Expected: 01/10/2023 , Expires: 03/12/2023 Start: 01-10-2023 End: 03-12-2023 Creatinine [Mass/volume] in Urine collected for unspecified duration [facility] Work Phone: Comment on above: Expected: 01/10/2023 , Expires: 03/12/2023 Start: 01-10-2023 End: 03-12-2023 Protein [Mass/volume] in Urine [facility] Work Phone: Comment on above: Expected: 01/10/2023 , Expires: 03/12/2023 Start: 01-07-2023 COVID-19 VACCINE (5 - Moderna series) COVID-19 VACCINE (5 - Moderna series) [facility] Start: 12-21-2022 SERUM CREATININE SERUM CREATININE Cl [facility] Start: 11-27-2022 ADVANCE DIRECTIVE DISCUSSION ADVANCE DIRECTIVE DISCUSSION [facility] Start: 11-27-2022 DEPRESSION ASSESSMENT DEPRESSION ASS ESSMENT [facility] Start: 07-28-2022 Influenza vaccination [facility] Start: 05-06-2022 COVID-19 VACCINE (4 - Booster for Moderna series) COVID-19 VACCINE (4 - Booster for Moderna series) [facility] Start: 12-29-2021 Hemoglobin A1c/Hemoglobin.total in Blood HBA1C [facility] Start: 11-27-2021 ADVANCE DIRECTIVE DISCUSSION ADVANCE DIRECTIVE DISCUSSION [facility] Start: 09-18-2021 Hemoglobin A1c/Hemoglobin.total in Blood HBA1C [facility] Start: 11-12-2020 Hepatitis B surface antibody level LDL CHOLESTEROL [facility] Start: 2008 BONE DENSITY BONE DENSITY [facility] Start: 2008 Bone Density Screening Bone Density Screening [facility] Start: 2008 Pneumococcal Vaccine : 65+ Years (1 of 1 - PCV) Pneumococcal Vaccine: 65+ Years (1 of 1 - PCV) [facility] Start: 2008 Screening for osteoporosis Bone Density Screening [facility] Start: 2003 Hepatitis B Vaccine (1 of 3 - Risk 3-dose series) Hepatitis B Vaccine (1 of 3 - Risk 3-dose series) [facility] Start: 2003 RSV Vaccine (1 - 1-d ose 60+ series) RSV Vaccine (1 - 1-dose 60+ series) [facility] Start: 1993 SHINGRIX VACCINE (1 of 2) SHINGRIX VACCINE (1 of 2) [facility] Start: 1962 Urine microalbumin profile DTAP,TDAP,TD (1 - Tdap) [facility] Start: 1961 ANNUAL PCP TEAM [employer] ZEUS DISEASE VISIT ANNUAL PCP TEAM CHRONIC DISEASE VISIT [facility] Start: 1961 Anxiety Screening Anxiety Screening [facility] Start: 1961 BP CONTROLLED (<130/80) BP CONTROLLE D (<130/80) [facility] Start: 1961 Depression Screening Depression Scre ening [facility] Start: 1955 Adult depression screening assessment DEPRESSION SCREENING [facility] Start: 1953 3 comp foot exam completed DIABETIC FOOT EXAM [facility] Start: 1953 Diabetic foot examination Diabetic Foot Exam [facility] Start: 1953 Glaucoma screening Dilated Retinal E xam [facility] Start: 1953 Hepatitis C antibody , confirmatory test DILATED RETINAL EXAM [facility] Start: 1949 Pneumococcal Vaccine : 65+ (1 - PCV) Pneumococcal Vaccine: 65+ (1 - PCV) [facility] Start: 1949 Pneumococcal Vaccine : 65+ (1 of 2 - PCV) Pneumococcal Vaccine: 65+ (1 of 2 - PCV) [facility] Start: 1949 PNEUMOCOCCAL: 65+ (1 - PCV) PNEUMOCOCCAL: 65+ (1 - PCV) [facility] Patient Education Know your [facility] Work Phone: [facility] Immunizations Immunization Date Immunization Notes Care Provider Fa kanwal 10-17-2022 influenza, injectabl e, quadrivalent, preservative free Edgard Abdi DPM Work Phone: [facility] 10-17-2022 influenza virus vacc ine, unspecified formulation Tiera Spangler APRN.PIPER INSTALLER Work Phone: [facility] 09-28-2022 influenza, high dose seasonal, preservative-free Edgard Abdi DPM Work Phone: [facility] 09-06-2022 Moderna Bivalent Figueroa ster Vaccination Edgard Abdi DPM Work Phone: [facility] 01-05-2022 Moderna SARS-CoV-2 Booster Vaccination Edgard Abdi DPM Work Phone: [facility] 12-05-2021 diphtheria, tetanus toxoids and pertussis vaccine Edgard Abdi DPM Work Phone: [facility] 12-05-2021 tetanus toxoid, redu manny diphtheria toxoid, and acellular pertussis vaccine, adsorbed Edgard Abdi DPM Work Phone: [facility] 10-20-2020 Seasonal trivalent influenza vaccine, adjuvanted, preservative free Edgard Jin DPM Work Phone: [facility] 09-10-2019 influenza, seasonal, injectable, preservative free Edgard Jin DPM Work Phone: [facility] 08-27-2016 seasonal influenza, intradermal, preservative free Edgard Jin DPM Work Phone: [facility] Payers Date Payer Category Payer Self-pay [id number] 2022 Unknown AARP AARP [id number] 2022-Present [address] [place] [address] [id number] 2018 Private Health Insurance [facility] AARP SUPPLEMENT [id number] 2018-Present [phone] [address] [place] [address] Indemnity [id number] 2018 Private Health Insurance [id number] 2014 Unknown [id number] 2008 Medicare MEDICARE MEDICAR E A AND B [id number] 2008-Present [phone] [facility] [address] [place] [address] Medicare [id number] 2008 Medicare [id number] 1959 Medicare [id number] 1959 Unknown [id number] 1943 Unknown [id number] .593 1943 Unknown [id number] 2.16.840.1.483846.3.579.2 .593 1943 Unknown [id number] 2.16.840.1.172664.3.579.2 .593 1943 Unknown [id number] 2.16.840.1.230658.3.579.2 .593 1943 Unknown [id number] 2.16.840.1.191385.3.579.2 .593 1943 Unknown [id number] 2.16.840.1.306575.3.579.2 .593 1943 Unknown [id number] 2.16.840.1.777213.3.579.2 .593 1943 Unknown [id number] 2.16.840.1.333021.3.579.2 .727 1943 Unknown [id number] 2.16.840.1.859621.3.579.2 .727 1943 Unknown [id number] 2.16.840.1.620600.3.579.2 .727 1943 Unknown [id number] 2.16.840.1.232735.3.579.2 .727 1943 Unknown [id number] 2.16.840.1.580091.3.579.2 .1259 1943 Unknown [id number] 2.16.840.1.501434.3.579.2 .125 1943 Unknown [id number] 2.16.840.1.807418.3.579.2 .1259 1943 Unknown [id number] 2.16.840.1.390380.3.579.2 .125 1943 Unknown [id number] 2.16.840.1.615677.3.579.2 .125 1943 Unknown [id number] 2.16.840.1.458076.3.579.2 .125 1943 Unknown [id number] 2.16.840.1.012498.3.579.2 .1258 1945 Unknown [id number] 2.16.840.1.853357.3.579.2 .125 1945 Unknown [id number] 2.16.840.1.929449.3.579.2 .1258 1945 Unknown [id number] 2.16.840.1.603772.3.579.2 .1259 1945 Unknown [id number] 2.16.840.1.651933.3.579.2 .125 1945 Unknown [id number] 2.16.840.1.007231.3.579.2 .125 1943 Unknown [id number] 2.16.840.1.469513.3.579.2 .125 1943 Unknown [id number] 2.16.840.1.003927.3.579.2 .125 1945 Unknown [id number] 2.16.840.1.129284.3.579.2 .1259 1945 Unknown [id number] 2.16.840.1.911878.3.579.2 .1259 1945 Unknown [id number] 2.16.840.1.878550.3.579.2 .1259 1945 Unknown [id number] 2.16.840.1.292645.3.579.2 .1259 1943 Unknown [id number] 2.16.840.1.461786.3.579.2 .125 1943 Unknown [id number] 2.16.840.1.696274.3.579.2 .1259 1943 Unknown [id number] 2.16.840.1.086730.3.579.2 .1258 1943 Unknown [id number] 2.16.840.1.260410.3.579.2 .1259 1943 Unknown [id number] 2.16.840.1.192369.3.579.2 .1258 1943 Unknown [id number] 2.16.840.1.163912.3.579.2 .1259 1943 Unknown [id number] 2.16.840.1.043883.3.579.2 .125 1943 Unknown [id number] 2.16.840.1.546568.3.579.2 .1259 1945 Unknown [id number] 2.16.840.1.813812.3.579.2 .1259 Unknown [id number] 2.16.840.1.202298.3.579.2 .531 Social History Date Type Detail Facility Start: 11-12-2019 End: 04-19-2023 Tobacco smoking status NHIS Never smoked tobacco [facility] Start: 11-12-2019 End: 04-19-2023 Tobacco use and exposure Smokeless tobacco non-user [facility] Start: 05-03-2022 End: 09-26-2024 Alcohol intake Lifetime non-drinker (finding) [facility] Start: 11-12-2019 History SDOH Alcohol Frequency 1 [facility] Start: 1945 Sex Assigned At Not on file [facility] Start: 04-23-2022 End: 05-03-2022 Exposure to SARS-CoV-2 (event) Not sure [facility] Start: 11-12-2019 End: 08-19-2024 History of Social function [facility] Work Phone: Start: 11-12-2019 End: 08-19-2024 Alcohol Use Disorder Identification Test - Consumption [AUDIT-C] [facility] Work Phone: How often to you hav e a drink containing alcohol? Never [facility] Work Phone: Average Number of Drinks Not on file [facility] Start: 1945 Sex Assigned At Female [facility] Start: 12-18-2023 Alcohol Comment Caffeine intake: 1-2 cups/day coffee [facility] Medical Equipment Procedure Code Equipment Code Equipment Origin al Text Equipment Identifier Dates USE FOUR TIMES A DAY [id number] Star t: 07-23-2024 Goals Date Patient Goal Desired Activity /State Clinical Notes 05-03-2022 to 10-17-2024 Edgard Abdi, DP - 10/17/2024 1:40 PM ESTEdgard Abdi, DP - 09/26/2024 1:20 PM EDEthel Abdi, DP - 09/12/2024 1:30 PM EDTEdgard Abdi, DP - 09/05/2024 1:30 PM EDT Note Date & Type Note Facility 10-17-2024 History of Presen t illness Narrative atient: [...] like did reconsider option at this time and presents today for Bone scan follow up to rule out OM. Has longstanding ulceration of greater than 6 months with negative improvement Patient presents today for preoperative evaluation examination post testing results for right 1st ray amputation under local anesthetic Allergies: Allergies Allergen Reactions Cephalexin Other Reaction(s): [...] same time., Disp: , Rfl: Continuous Glucose Orthotics Assistant (FreeStyle Gualberto 3 Trenary) device, 1 Device See administration instructions, Disp: 1 each, Rfl: 0 Continuous Glucose Sensor (FreeStyle Gualberto 3 Sensor) [facility], Inject 1 Device under the skin every [...] MINI PEN NEEDLES) 31G x 5 mm mis, USE FOUR TIMES A DAY, Disp: 400 [...] and negative PT pedal pulses NEURO: 5.07 [place] Karthik monofilament test diminished to digits and forefoot bilaterally 125Hz tuning fork diminished to 1st MPJ bilaterally ORTHO: Positive pain on palpation to nails 1 through 10 Negative palpation to right hallux Notable hallux malleus to the right great toe BONE SCAN: Bone scan shows increased blood flow with the right foot specifically involving the great toe but only mildly greater tuberosity with in the bones of the 1st toe. Findings favor cellulitis but mild resolving osteomyelitis can not be completely excluded according to [facility] ASSESSMENT 1. Osteomyelitis of ankle or foot, acute, right ([facility]) 2. Type 2 diabetes mellitus with diabetic neuropathy, with long-term current use of insulin ([facility]) 3. Foot ulcer, right, with fat layer exposed ([facility]) 4. Acquired deformity of right toe PLAN Decision for surgery today Reviewed bone scan results today with patient Patient given prescription for pain medication to be taken postoperatively. Decision for surgery today and patient medically cleared from a podiatric standpoint for surgery and to proceed with surgery. Pt to have pre op H/P per PCP for medical clearance for surgery and will be reviewed along with labs prior to surgery. Pt scheduled for right 1st ray amputation under local anesthetic Discussed with the patient the nature of condition and operative vs nonoperative care. The surgical plans, risks, alternatives, benefits, post op complications and middle or 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 school principal expectations were discussed including but not limited to: infection,bone infection,wound dehiscence hardware failure and irritation,wound dehiscence,delay union/mal union/non union of bone. RSDS,neuroma,duty limitations,DVT/PE, IN,nerve damage, scar, loss of sensation, swelling. Pt understands the proposed sx in detail and has agreed with proposed surgery. No guarantees were given or implied. Pt willingly consents to procedure and to have surgical procedure. Pt also understands risks including COVID-19 current risk in a surgical setting. Pt is a low acceptable risk for outpatient surgery from a podiatric standpoint with an ASA of a 2. Edgard Abdi DPM, FACFAS H&P up to date and current (date) October 17, 2024 Edgard Abdi DPM documented in this encounter [facility] 09-26-2024 History of Presen t illness Narrative [...] same time., Disp: , Rfl: Continuous Glucose Orthotics Assistant (FreeStyle Gualberto 3 Trenary) device, 1 Device See administration instructions, Disp: [...] and negative PT pedal pulses NEURO: 5.07 [place] Karthik monofilament test diminished to digits and forefoot bilaterally 125Hz tuning fork diminished to 1st MPJ bilaterally ORTHO: Positive pain on palpation to nails 1 through 10 Negative palpation to right hallux Notable hallux malleus to the right great toe ASSESSMENT 1. Type 2 diabetes mellitus with diabetic neuropathy, with long-term current use of insulin ([facility]) 2. Foot ulcer, right, with fat layer exposed ([facility]) 3. Acquired deformity of right toe 4. Osteomyelitis of ankle or foot, acute, right ([facility]) PLAN Sharp debridement with 15 blade of [...] Edgard Abdi DPM documented in this encounter [facility] 09-12-2024 History of Presen t illness Narrative [...] same time., Disp: , Rfl: Continuous Glucose Orthotics Assistant (FreeStyle Gualberto 3 Trenary) device, 1 Device See administration instructions, Disp: [...] and negative PT pedal pulses NEURO: 5.07 [place] Karthki monofilament test diminished to digits and forefoot bilaterally 125Hz tuning fork diminished to 1st MPJ bilaterally ORTHO: Positive pain on palpation to nails 1 through 10 Negative palpation to right hallux Notable hallux malleus to the right great toe ASSESSMENT 1. Type 2 diabetes mellitus with diabetic neuropathy, with long-term current use of insulin ([facility]) 2. Foot ulcer, right, with fat layer exposed ([facility]) 3. Acquired deformity of right toe PLAN [...] Patient may continue with conservative treatments including zsmr-nfy-vlcuqcj anti-inflammatories and other treatments suggested today. Patient [...] Edgard Abdi DPM documented in this encounter [facility] 09-05-2024 History of Presen t illness Narrative [...] same time., Disp: , Rfl: Continuous Glucose Orthotics Assistant (FreeStyle Gualberto 3 Trenary) device, 1 Device See administration instructions, Disp: [...] and negative PT pedal pulses NEURO: 5.07 [place] Karthik monofilament test diminished to digits and [...] Edgard Abdi DPM documented in this encounter [facility] 08-02-2024 Telephone encounter Note Called and spoke to Pt in regards to below message. Pt understood and will repeat labs. EFE Schulte Please call patient Her potassium is better on the increased lokelma of 15gm daily Scr is a bit above baseline at 2.3 Please have her repeat the labs nonfasting in 1-2 weeks in [place], orders are in Tiera Spangler APRN.PIPER INSTALLER [facility] 08-02-2024 Miscellaneous Notes Called and spoke to Pt in regards to below message. Pt understood and will repeat labs. EFE Schulte Please call patient Her potassium is better on the increased lokelma of 15gm daily Scr is a bit above baseline at 2.3 Please have her repeat the labs nonfasting in 1-2 weeks in [place], orders are in Tiera Spangler APRN.PIPER INSTALLER documented in this encounter [facility] 08-02-2024 Telephone encounter Note Please call patient Her potassium is better on the increased lokelma of 15gm daily Scr is a bit above baseline at 2.3 Please have her repeat the labs nonfasting in 1-2 weeks in [place], orders are in Tiera Spangler APRN.PIPER INSTALLER [facility] 08-02-2024 Miscellaneous Notes Please call patient Her potassium is better on the increased lokelma of 15gm daily Scr is a bit above baseline at 2.3 Please have her repeat the labs nonfasting in 1-2 weeks in [place], orders are in Tiera Spangler APRN.DORINA documented in this encounter [facility] 07-24-2024 Telephone encounter Note Called and spoke to Pt in regards to below message. Pt understood and will do as suggested. Please call pt re: labs Kidney function is stable Potassium is a little high at 5.4 Continue lokelma. I am going to increase it to 15gm daily I will order a new shipment to be sent Labs in [place] 1 week after she starts increase, nonfasting Tiera Spangler APRN.EFE Steward [facility] 07-24-2024 Miscellaneous Notes Called and spoke to Pt in regards to below message. Pt understood and will do as suggested. Please call pt re: labs Kidney function is stable Potassium is a little high at 5.4 Continue lokelma. I am going to increase it to 15gm daily I will order a new shipment to be sent Labs in [place] 1 week after she starts increase, nonfasting ARABELLA Larson OCCA Please call pt re: labs Kidney function is stable Potassium is a little high at 5.4 Continue lokelma. I am going to increase it to 15gm daily I will order a new shipment to be sent Labs in [place] 1 week after she starts increase, nonfasting Tiera Spangler APRN.DORINA documented in this encounter [facility] 07-24-2024 Telephone encounter Note Please call pt re: labs Kidney function is stable Potassium is a little high at 5.4 Continue [facility]. I am going to increase it to 15gm daily I will order a new shipment to be sent Labs in [place] 1 week after she starts increase, nonfasting Tiera Spangler APRN.PIPER INSTALLER [facility] 07-23-2024 Note HNO ID: [id number] Author: TIERA SPANGLER APRN.PIPER INSTALLER Service: ? Author Type: Nurse Practitioner Type: [...] 4000U D 3-follow labs DM-she follows in [place], [place]. Update A1C. Continue endo follow up Plan Update labs Follow up 4-6 months Tiera Spangler APRN.[facility] 07-23-2024 History of Presen t illness [...] 4000U D 3-follow labs DM-she follows in [place], [place]. Update A1C. Continue endo follow up Plan Update labs Follow up 4-6 months Tiera Spangler APRN.DORINA documented in this encounter [facility] 06-18-2024 Telephone encounter Note Spoke with pt, offered to hand patient requested forms at scheduled appt on 06/25/24 with Tiera Spangler. Pt declined and stated she would be in [facility] on 06/20/24. [place]&ME nicole, Lokelma cards, and Lokelma prescription have been placed in an envelope in prescription box behind AVW2-2 behind check-out. Patient is to fill out page one of application and leave for Tiera. Please place completed application in Tiera's mailbox once completed by patient. *Patient plans to meat pickler packet 06/20/24 in the AM* Viola Vidal MA [facility] 06-18-2024 Miscellaneous Notes Spoke with pt, offered to hand patient requested forms at scheduled appt on 06/25/24 with Tiera Spangler. Pt declined and stated she would be in [facility] on 06/20/24. AZ&ME nicole, Lokelma cards, and Lokelma prescription have been placed in an envelope in prescription box behind AVW2-2 behind check-out. Patient is to fill out page one of application and leave for Tiera. Please place completed application in Tiera's mailbox once completed by patient. *Patient plans to meat pickler packet 06/20/24 in the AM* Viola Vidal [...] trial coupon to patient Tiera Spangler APRN.DORINA Varsha is calling Tiera Spangler RD today with concern regarding Medication Assistance (LOKELMA). Pt states provider told her she would help try to get her a lower cost on LOKELMA. Please advise. Patient has been identified by name and birthdate. Duration of symptoms: N/A Person calling: self Call patient at: at home [phone] (home) [phone] (cell) Was an appointment scheduled: No Closing statement: Results or non-symptom based questions: Thank you for calling [facility], your call will be returned within the next business day. Lela Abdi documented in this encounter [facility] 06-18-2024 Telephone encounter Note Returned call [...] free trial coupon to patient Tiera Spangler APRN.PIPER INSTALLER [facility] 06-18-2024 Telephone encounter Note Varsha is calling Tiera Spangler RD today with concern regarding Medication Assistance (LOKELMA). Pt states provider told her she would help try to get her a lower cost on LOKELMA. Please advise. Patient has been identified by name and birthdate. Duration of symptoms: N/A Person calling: self Call patient at: at home [phone] (home) [phone] (cell) Was an appointment scheduled: No Closing statement: Results or non-symptom based questions: Thank you for calling [facility], your call will be returned within the next business day. Lela Abdi [facility] 03-08-2024 Miscellaneous Notes Received labs Na [...] birthdate: Yes Call received from Erika from [facility] outpatient lab at 225 PM to report a critical value for BUN with a result of 90.0. Dr Headley was notified of the result at 0238PM. Liban Zuñiga RN documented in this encounter [facility] 02-14-2024 Miscellaneous Notes Placed lab order form for renal function panel in the outgoing mail as of 02/14/2024. Tahir Phoenix MA Called patient, kidney function is stable. Her chiropractic physician had wanted her to start sotagliflozin 200mg weekly in place of torsemide 20mg every other day. Reviewed with patient, we will need to monitor her kidney function with this switch. Plan to repeat labs in 2 weeks. Marylu Headley DO February 14, 2024, 2:18 PM documented in this encounter [facility] 02-13-2024 History of Presen t illness [...] echo on 03/24. She recently saw her chiropractic physician, he wanted her to take sotagliflozin as [...] lab work - reviewed labs and discussed GAS UTILITY WORKER with patient, she reports she would be interested in GAS UTILITY WORKER if needed, will get CKD education 2.) azotemia - no uremic signs or symptoms - Discussed avoiding nephrotoxins such as NSAIDs and IV iodinated contrast dye. 3) Hypertension: on the higher side, home bps look better - monitor for her, she is on multiple cardiac medications and reports her chiropractic physician would like to get her off of [...] from tosremide to sotagliflozin as per her chiropractic physician - monitor UA and UPCR 9) hyperkalemia - history of hyperkalemia - is on lokelma as K binder I spent a total of 40 minutes on the date of the service which included preparing to see the patient, panx-lx-ryek patient care, completing clinical documentation, obtaining and/or reviewing separately obtained history, performing a medically appropriate examination, counseling and educating the patient/family/caregiver, and ordering medications, tests, or procedures. Follow up in 3 months, sooner prn. Marylu Headley DO documented in this encounter [facility] 02-13-2024 Note HNO ID: [id number] Author: MARYLU HEADLEY DO Service: ? Author [...] echo on 03/24. She recently saw her chiropractic physician, he wanted her to take sotagliflozin as [...] 01/10/2023 PTH 63 01/10/2023 DIABETES Lab Results [place] (more content not included)... [facility] 02-06-2024 Miscellaneous Notes Noted. Marylu Headley DO February 06, 2024, 12:40 PM Patient calling back Read message below Voiced understanding She feels great Will wait until next week/ will get lab work while at [facility] Transferred to scheduling to make lab appointment [...] 2024, 10:31 AM documented in this encounter [facility] 02-06-2024 Miscellaneous Notes Received lab results from [facility]. Placed in provider mailbox for review. Viola Vidal MA documented in this encounter [facility] 12-26-2023 Note HNO ID: [id number] Author: TIERA SPANGLER APRN.DORINA Service: ? Author Type: Nurse Practitioner Type: [...] labs DM-last A1C 8.9. She follows in [place], [place]. Continue endo follow up Plan No changes Labs prior to next follow up Has follow up in [address] Headley. Will keep appt and see me in 6 months Tiera Spangler APRN.DORINA [facility] 11-15-2023 Miscellaneous Notes Contacted patient to advise her of the message below from Tiera Spangler APRN, CNP. She agreed with plan as stated below and will mostly likely get it done today. Please remind patient she is due for nonfasting labs at [facility]. I sent order last week. EFE Mckeon documented in this encounter [facility] 11-06-2023 Miscellaneous Notes Took a call from Erika who works at [facility]. Erika was calling with some critical lab values for Tiera Spangler. Took the following message over phone: Critical BUN of 117. Patient in question was verified using full name and date of . Candace Veliz November 06, 2023 4:24 PM documented in this encounter [facility] 10-23-2023 Miscellaneous Notes I called the Medical Records department at [facility]. My call went to voicemail. I did not leave a message. I will try to call back @ [phone], Medical Records press 2, then 2. Akshat Schaeffer ----- Message from Tiera Spangler APRN.PIPER INSTALLER sent at 10/23/2023 8:57 AM EST ----- Please call [facility] and have repeat BUN and creatinine faxed over Tiera Spangler APRN.PIPER INSTALLER documented in this encounter [facility] 10-10-2023 Miscellaneous Notes Called pt to review labs Results not fully available to me from outside lab Would like to review BUN 124 Any med changes? How is BP? No answer, LMTCB Tiera Spangler APRN.PIPER INSTALLER Patient s identity has been confirmed by name and birthdate: Yes Call received from Lela at [facility] to report a critical value for BUN with a result of 124. Tiera Spangler APRN CNP was notified of the result at 2:46PM. Liban Zuñiga, LLOYD documented in this encounter [facility] 10-09-2023 Miscellaneous Notes The requested document has been faxed to [phone] . Received a fax confirmation of [place] on 10/09/23. Akshat Schaeffer Varsha Chaudhry is calling Tiera Spangler APRN.PIPER INSTALLER today needs labs ordered and faxed over to [facility]. F: [phone] No chief complaint on file. Patient has been identified by name and birthdate. Duration of symptoms: N/A Person calling: self Call patient at: at home [phone] (home) [phone] (cell) Was an appointment scheduled: No Closing statement: Results or non-symptom based questions: Thank you for calling [facility], your call will be returned within the next business day. Elva Beckford documented in this encounter [facility] 07-20-2023 Miscellaneous Notes That is fine [...] calling: self Call patient at: at home [phone] (home) [phone] (cell) Was an appointment scheduled: No Closing statement: Results or non-symptom based questions: Thank you for calling [facility], your call will be returned within the next business day. Elva Beckford documented in this encounter [facility] 06-13-2023 History of Presen t illness [...] DM-uncontrolled on last lab. She follows in [place], [place]. Continue endo follow up Plan Have labs faxed over from [facility] F/U 4 months Tiera Spangler APRN.PIPER INSTALLER documented in this encounter [facility] 01-10-2023 Miscellaneous Notes Addended by: TIERA SPANGLER on: 01/10/2023 11:34 AM Modules accepted: Orders documented in this encounter [facility] 01-10-2023 History of Presen t illness Narrative Pt is a 77 yo female here for follow up of CKD stage 4 in the setting of proteinuria (non-nephrotic range), DM and HTN. Last OV 04/2022. Kayexalate powder restarted after that visit. Cardiology has changed it to clarhqk-gfxumoj-xwo will run out. She has no new [...] home as well as here-she sees cardiology [id number] and her BPs are controlled there. Hyperkalemia-now [...] DM-uncontrolled on last lab. She follows in [place], [place]. Last A1C 8.5-continue endo follow up Heme-Hgb WNL Plan Labs Continue lokelma 10gm daily 30 day free coupon given to augment samples She will let me know if cardiology cannot sample-may need to go to specialty pharmacy F/U 4 months Tiera Spangler APRN.DORINA documented in this encounter [facility] 05-17-2022 Miscellaneous Notes Received a page from lab at [place] regarding critical lab results. Critical Glucose of [...] 2022, 1:16 PM documented in this encounter [facility] 05-04-2022 Miscellaneous Notes The requested document has been faxed to [phone]. Received a fax confirmation of [place] on [...] mail req She is agreeable Tiera Spangler APRN.PIPER INSTALLER documented in this encounter [facility] 05-03-2022 History of Presen t illness [...] labs. HTN-well controlled at home-she sees cardiology [id number] and her BPs are controlled there. Rhbieoscrhvx-wwffphiooiwh-go longer on treatment. Didn't tolerate veltassa and avoiding lokelma given CHF-update labs Vitamin D deficiency-on supplement 4000U D 3-update labs DM-uncontrolled on last lab. She follows in [place], [place]. Last A1C 8.9-continue endo follow up Plan Labs Cardiology has sent lab request for add ons Will have faxed to Dr Norton [phone] F/U 4 months Tiera Spangler APRN.PIPER INSTALLER documented in this encounter [facility] Evaluation + Plan note Future Appointments Appointment Date:07/17/2024 10:45:00 AM Scheduled Provider:Lasha Mackenzie DPM [facility] Appointment Type: Follow Up Visit (FT) [facility] Evaluation + Plan note Future Appointments Appointment Date:07/24/2024 09:15:00 AM Scheduled Provider:Lasha Mackenzie DPM [facility] Appointment Type:[facility] Follow Up Visit (FT) [facility] Evaluation + Plan note Future Appointments Appointment Date:07/31/2024 11:00:00 AM Scheduled Provider:Lasha Mackenzie DPM [facility] Appointment Type:[facility] Follow Up Visit (FT) [facility] Evaluation note Diagnosis Benign hypertension with chronic kidney disease, stage IV (HCC)- Primary Benign hypertensive kidney disease with chronic kidney disease stage I through stage IV, or unspecified CKD (chronic kidney disease) stage 4, GFR 15-29 ml/min (HCC) Chronic kidney disease, Stage IV (severe) Proteinuria, unspecified type Hyperkalemia Hyperpotassemia 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, unspecified whether residential insulin use (HCC) Vitamin D deficiency Unspecified vitamin D deficiency Chronic combined systolic and diastolic congestive heart failure (HCC) Chronic combined systolic and diastolic heart failure [facility] Diagnosis Benign hypertension with chronic kidney disease, stage IV (HCC)- Primary Benign hypertensive kidney disease with chronic kidney disease stage I through stage IV, or unspecified CKD (chronic kidney disease) stage 4, GFR 15-29 ml/min (HCC) Chronic kidney disease, Stage IV (severe) Proteinuria, unspecified type Hyperkalemia Hyperpotassemia 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, 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 or 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 (HCC) Vitamin D deficiency Unspecified vitamin D deficiency [facility]* Diagnosis Benign hypertension with chronic kidney disease, stage IV (HCC)- Primary Benign hypertensive kidney disease with chronic kidney disease stage I through stage IV, or unspecified CKD (chronic kidney disease) stage 4, GFR 15-29 ml/min (HCC) Chronic kidney disease, Stage IV (severe) Proteinuria, unspecified type Hyperkalemia Hyperpotassemia 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, unspecified whether residential insulin use (HCC) [facility] Diagnosis Benign hypertension with chronic kidney disease, stage IV (HCC)- Primary Benign hypertensive kidney disease with chronic kidney disease stage I through stage IV, or unspecified [facility] Diagnosis CKD (chronic kidney disease) stage [...] chemistry Hyperkalemia Hyperpotassemia [facility]No assessment information availablePe[facility] Work Phone: Evaluation note* Diagnosis CKD (chronic [...] vitamin D deficiency [facility]* Diagnosis Hyperkalemia- Primary Hyperpotassemia [facility]* Diagnosis CKD (chronic kidney disease) stage 4, GFR 15-29 ml/min (HCC)- Primary Chronic kidney disease, Stage IV (severe) [facility]* Diagnosis Acquired deformity of right toe- Primary Foot ulcer, right, with fat layer exposed ([facility]) Type 2 diabetes mellitus with diabetic neuropathy, with long-term current use of insulin ([facility]) Pain due to onychomycosis of toenails of both feet Foot ulceration, right, with fat layer exposed ([facility]) [facility] Diagnosis Diabetic peripheral neuropathy associated with type 2 diabetes mellitus ([facility])- Primary 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, with long-term current use of insulin ([facility]) 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 ([facility]) Hypoglycemia due to type 2 diabetes mellitus ([facility]) Type 2 diabetes mellitus without complication, with long-term current use of insulin ([facility]) Type 2 diabetes mellitus with peripheral neuropathy ([facility])- Primary 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, with long-term current use of insulin ([facility]) Class 2 severe obesity due to excess calories with serious comorbidity and body mass index (BMI) of 36.0 to 36.9 in adult ([facility])- Primary Type 2 diabetes mellitus with peripheral neuropathy ([facility]) 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, with long-term current use of insulin ([facility]) Type 2 diabetes mellitus with hypoglycemia without coma, with long-term current use of insulin ([facility]) Type 2 diabetes mellitus with peripheral neuropathy ([facility])- Primary 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, with long-term current use of insulin ([facility]) Type 2 diabetes mellitus with hypoglycemia without coma, with long-term current use of insulin ([facility]) Class 2 severe obesity due to excess calories with serious comorbidity and body mass index (BMI) of 37.0 to 37.9 in adult ([facility]) Type 2 diabetes mellitus with peripheral neuropathy ([facility])- Primary 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, with long-term current use of insulin ([facility]) Type 2 diabetes mellitus with hypoglycemia without coma, with long-term current use of insulin ([facility]) Class 2 severe obesity due to excess calories with serious comorbidity and body mass index (BMI) of 38.0 to 38.9 in adult ([facility]) Type 2 diabetes mellitus with hyperglycemia, with long-term current use of insulin ([facility]) Type 2 diabetes mellitus with diabetic neuropathy, with long-term current use of insulin ([facility])- Primary Foot ulcer, right, with fat layer exposed ([facility]) Acquired deformity of right toe documented in [facility]* Diagnosis Diabetic peripheral neuropathy associated with type 2 diabetes mellitus ([facility])- Primary 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, with long-term current use of insulin ([facility]) USP current use of insulin ([facility]) Hypoglycemia due to type 2 diabetes mellitus ([facility]) Type 2 diabetes mellitus without complication, with long-term current use of insulin ([facility]) Type 2 diabetes mellitus with peripheral neuropathy ([facility])- Primary 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, with long-term current use of insulin ([facility]) Class 2 severe obesity due to excess calories with serious comorbidity and body mass index (BMI) of 36.0 to 36.9 in adult ([facility])- Primary Type 2 diabetes mellitus with peripheral neuropathy ([facility]) 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, with long-term current use of insulin ([facility]) Type 2 diabetes mellitus with hypoglycemia without coma, with long-term current use of insulin ([facility]) Type 2 diabetes mellitus with peripheral neuropathy ([facility])- Primary 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, with long-term current use of insulin ([facility]) Type 2 diabetes mellitus with hypoglycemia without coma, with long-term current use of insulin ([facility]) Class 2 severe obesity due to excess calories with serious comorbidity and body mass index (BMI) of 37.0 to 37.9 in adult ([facility]) Type 2 diabetes mellitus with peripheral neuropathy ([facility])- Primary 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, with long-term current use of insulin ([facility]) Type 2 diabetes mellitus with hypoglycemia without coma, with long-term current use of insulin ([facility]) Class 2 severe obesity due to excess calories with serious comorbidity and body mass index (BMI) of 38.0 to 38.9 in adult ([facility]) Type 2 diabetes mellitus with hyperglycemia, with long-term current use of insulin ([facility]) Osteomyelitis of ankle or foot, acute, right ([facility])- Primary Type 2 diabetes mellitus with diabetic neuropathy, with long-term current use of insulin ([facility]) Foot ulcer, right, with fat layer exposed ([facility]) Acquired deformity of right toe documented in this encounter [facility]* Diagnosis Diabetic peripheral neuropathy associated with type 2 diabetes mellitus ([facility])- Primary 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, with long-term current use of insulin ([facility]) 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 ([facility]) Hypoglycemia due to type 2 diabetes mellitus ([facility]) Type 2 diabetes mellitus without complication, with long-term current use of insulin ([facility]) Type 2 diabetes mellitus with peripheral neuropathy ([facility])- Primary 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, with long-term current use of insulin ([facility]) Class 2 severe obesity due to excess calories with serious comorbidity and body mass index (BMI) of 36.0 to 36.9 in adult ([facility])- Primary Type 2 diabetes mellitus with peripheral neuropathy ([facility]) 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, with long-term current use of insulin ([facility]) Type 2 diabetes mellitus with hypoglycemia without coma, with long-term current use of insulin ([facility]) Type 2 diabetes mellitus with peripheral neuropathy ([facility])- Primary 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, with long-term current use of insulin ([facility]) Type 2 diabetes mellitus with hypoglycemia without coma, with long-term current use of insulin ([facility]) Class 2 severe obesity due to excess calories with serious comorbidity and body mass index (BMI) of 37.0 to 37.9 in adult ([facility]) Type 2 diabetes mellitus with peripheral neuropathy ([facility])- Primary 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, with long-term current use of insulin ([facility]) Type 2 diabetes mellitus with hypoglycemia without coma, with long-term current use of insulin ([facility]) Class 2 severe obesity due to excess calories with serious comorbidity and body mass index (BMI) of 38.0 to 38.9 in adult ([facility]) Type 2 diabetes mellitus with hyperglycemia, with long-term current use of insulin ([facility]) Osteomyelitis of ankle or foot, acute, right ([facility])- Primary Type 2 diabetes mellitus with diabetic neuropathy, with long-term current use of insulin ([facility]) Foot ulcer, right, with fat layer exposed ([facility]) Acquired deformity of right toe [facility] Narr[facility] No data available for this section [facility] Hospital Discharge instructions Additional Instructions DISCHARGE [...] operative site FOLLOW UP Phone numbers: Office [phone] [ ][facility] Work Phone: Hospital Discharge instructions No data available for this section [facility] Progress note No data available for this section [facility] Summary Purpose Family History No Family [...] or prosecute any alcohol or drug abuse patient.[facility] the event this information is protected by the Federal Confidentiality of Alcohol and Drug Abuse Patient Records regulations: The Federal rules restrict any use of the information to criminally investigate or prosecute any alcohol or drug abuse patient.[facility] the event this information is protected by the Federal Confidentiality of Alcohol and Drug Abuse Patient Records regulations: The Federal rules restrict any use of the information to criminally investigate or prosecute any alcohol or drug abuse patient.[facility] the event this information is protected by the Federal Confidentiality of Alcohol and Drug Abuse Patient Records regulations: The Federal rules restrict any use of the information to criminally investigate or prosecute any alcohol or drug abuse patient.[facility] the event this information is protected by the Federal Confidentiality of Alcohol and Drug Abuse Patient Records regulations: The Federal rules restrict any use of the information to criminally investigate or prosecute any alcohol or drug abuse patient.[facility] the event this information is protected by the Federal Confidentiality of Alcohol and Drug Abuse Patient Records regulations: The Federal rules restrict any use of the information to criminally investigate or prosecute any alcohol or drug abuse patient.[facility] the event this information is protected by the Federal Confidentiality of Alcohol and Drug Abuse Patient Records regulations: The Federal rules restrict any use of the information to criminally investigate or prosecute any alcohol or drug abuse patient.[facility] the event this information is protected by the Federal Confidentiality of Alcohol and Drug Abuse Patient Records regulations: The Federal rules restrict any use of the information to criminally investigate or prosecute any alcohol or drug abuse patient.[facility] the event this information is protected by the Federal Confidentiality of Alcohol and Drug Abuse Patient Records regulations: The Federal rules restrict any use of the information to criminally investigate or prosecute any alcohol or drug abuse patient.[facility] the event this information is protected by the Federal Confidentiality of Alcohol and Drug Abuse Patient Records regulations: The Federal rules restrict any use of the information to criminally investigate or prosecute any alcohol or drug abuse patient.[facility] the event this information is protected by the Federal Confidentiality of Alcohol and Drug Abuse Patient Records regulations: The Federal rules restrict any use of the information to criminally investigate or prosecute any alcohol or drug abuse patient.[facility] the event this information is protected by the Federal Confidentiality of Alcohol and Drug Abuse Patient Records regulations: The Federal rules restrict any use of the information to criminally investigate or prosecute any alcohol or drug abuse patient.[facility] the event this information is protected by the Federal Confidentiality of Alcohol and Drug Abuse Patient Records regulations: The Federal rules restrict any use of the information to criminally investigate or prosecute any alcohol or drug abuse patient.[facility] the event this information is protected by the Federal Confidentiality of Alcohol and Drug Abuse Patient Records regulations: The Federal rules restrict any use of the information to criminally investigate or prosecute any alcohol or drug abuse patient.[facility] the event this information is protected by the Federal Confidentiality of Alcohol and Drug Abuse Patient Records regulations: The Federal rules restrict any use of the information to criminally investigate or prosecute any alcohol or drug abuse patient.[facility] the event this information is protected by the Federal Confidentiality of Alcohol and Drug Abuse Patient Records regulations: The Federal rules restrict any use of the information to criminally investigate or prosecute any alcohol or drug abuse patient.[facility] the event this information is protected by the Federal Confidentiality of Alcohol and Drug Abuse Patient Records regulations: The Federal rules restrict any use of the information to criminally investigate or prosecute any alcohol or drug abuse patient.[facility] the event this information is protected by the Federal Confidentiality of Alcohol and Drug Abuse Patient Records regulations: The Federal rules restrict any use of the information to criminally investigate or prosecute any alcohol or drug abuse patient.[facility] the event this information is protected by the Federal Confidentiality of Alcohol and Drug Abuse Patient Records regulations: The Federal rules restrict any use of the information to criminally investigate or prosecute any alcohol or drug abuse patient.[facility] the event this information is protected by the Federal Confidentiality of Alcohol and Drug Abuse Patient Records regulations: The Federal rules restrict any use of the information to criminally investigate or prosecute any alcohol or drug abuse patient.[facility] the event this information is protected by the Federal Confidentiality of Alcohol and Drug Abuse Patient Records regulations: The Federal rules restrict any use of the information to criminally investigate or prosecute any alcohol or drug abuse patient.[facility] the event this information is protected by the Federal Confidentiality of Alcohol and Drug Abuse Patient Records regulations: The Federal rules restrict any use of the information to criminally investigate or prosecute any alcohol or drug abuse patient.[facility] Reason for Visit (unrecogniz ed section [...] Care Teams (unrecognized sec tion and content) Visual Education Director Relationship Specialty Start Date End Date Tiera Spangler APRN.PIPER INSTALLER [address] [place] [address] Primary Staff Physician Nephrology 12/23/21 Visual Education Director Relationship Specialty Start Date End Date Tiera Spangler APRN.PIPER INSTALLER [address] [place] [address] Primary Staff Physician Nephrology 12/23/21 Visual Education Director Relationship Specialty Start Date End Date Tiera Spangler APRN.PIPER INSTALLER [address] [place] [address] Primary Staff Physician Nephrology 12/23/21 Visual Education Director Relationship Specialty Start Date End Date Tiera Spangler APRN.PIPER INSTALLER [address] [place] [address] Primary Staff Physician Nephrology 12/23/21 Visual Education Director Relationship Specialty Start Date End Date Tiera Spangler APRN.PIPER INSTALLER [address] [place] [address] Primary Staff Physician Nephrology 12/23/21 Visual Education Director Relationship Specialty Start Date End Date Tiera Spangler, PROOF TECHNICIAN.PIPER INSTALLER [address] [place] [address] Primary Staff Physician Nephrology 12/23/21 Visual Education Director Relationship Specialty Start Date End Date Tiera Spangler PROOF TECHNICIAN.PIPER INSTALLER [address] [place] [address] Primary Staff Physician Nephrology 12/23/21 Visual Education Director Relationship Specialty Start Date End Date Tiera Spangler, PROOF TECHNICIAN.PIPER INSTALLER [address] [place] [address] Primary Staff Physician Nephrology 12/23/21 Visual Education Director Relationship Specialty Start Date End Date Tiera Spangler PROOF TECHNICIAN.PIPER INSTALLER [address] [place] [address] Primary Staff Physician Nephrology 12/23/21 Visual Education Director Relationship Specialty Start Date End Date Tiera Spangler, PROOF TECHNICIAN.PIPER INSTALLER [address] [place] [address] Primary Staff Physician Nephrology 12/23/21 Visual Education Director Relationship Specialty Start Date End Date Tiera Spangler, PROOF TECHNICIAN.PIPER INSTALLER [address] [place] [address] Primary Staff Physician Nephrology 12/23/21 Team Status: Active Member Role Status Dates Ken Norton JR DO Primary Care Provider Active Team Status: Inactive Member Role Status Dates Edgard Abdi DPM Attending Provider Active Start: May 03, 2024 End: May 03, 2024 Ken Norton JR DO Primary Care Provider Active Start: May 03, 2024 End: May 03, 2024 Visual Education Director Relationship Specialty Start Date End Date Tiera Spangler, PROOF TECHNICIAN.PIPER INSTALLER [address] [place], [place] [id number] Primary Staff Physician Nephrology 12/23/21 Visual Education Director Relationship Specialty Start Date End Date Tiera Spangler, PROOF TECHNICIAN.PIPER INSTALLER [address] [place], [place] [id number] Primary Staff Physician Nephrology 12/23/21 Visual Education Director Relationship Specialty Start Date End Date Tiera Spangler, PROOF TECHNICIAN.PIPER INSTALLER [address] [place], [place] [id number] Primary Staff Physician Nephrology 12/23/21 Visual Education Director Relationship Specialty Start Date End Date Ken Norton MD [address] [place] [address] [id number] PCP - General Internal Medicine 05/11/23 Fartun Skinner DO [address] [place] [phone] Referring Physician Family Medicine 05/11/23 Visual Education Director Relationship Specialty Start Date End Date Ken Norton MD [address] [place] [address] [id number] PCP - General Internal Medicine 05/11/23 Fartun Skinner DO [address] [place] [address] [id number] Referring Physician Family Medicine 05/11/23 Visual Education Director Relationship Specialty Start Date End Date Ken Norton MD [address] [facility] [place] [address] PCP - General Internal Medicine 05/11/23 Fartun Skinner DO [address] [facility] [place] [address] Referring Physician Family Medicine 05/11/23 Visual Education Director Relationship Specialty Start Date End Date Ken Norton MD [address] [facility] [place] [address] PCP - General Internal Medicine 05/11/23 Fartun Skinner DO [facility] [facility] [place] [address] Referring Physician Family Medicine 05/11/23 Visual Education Director Relationship Specialty Start Date End Date Ken Norton MD [address] [facility] [place] [address] PCP - General Internal Medicine 05/11/23 Fartun Skinner DO [address] [facility] [place] [address] Referring Physician Family Medicine 05/11/23 Visual Education Director Relationship Specialty Start Date End Date Ken Norton MD [address] [facility] [place] [address] PCP - General Internal Medicine 05/11/23 Fartun Skinner DO [address] [facility] [place] [address] Referring Physician Family Medicine 05/11/23 INFORMATION SOURCE (unrecogn ized section and content) DATE CREATED AUTHOR 05/05/2023 [facility] pital DATE CREATED AUTHOR AUTHOR'S ORGANIZ ATION 05/11/2024 [facility] DATE CREATED AUTHOR AUTHOR'S ORGANIZ ATION 07/25/2024 [facility] DATE CREATED AUTHOR AUTHOR'S ORGANIZ ATION 08/01/2024 [facility] DATE CREATED AUTHOR AUTHOR'S ORGANIZ ATION 08/18/2024 [facility] DATE CREATED AUTHOR AUTHOR'S ORGANIZ ATION 10/20/2024 [facility] FOR RECORDS PERTAINING TO PATIENTS WHO ARE [...] BE BASED ON THE PRIMARY CLINICAL RECORDS. [facility] [employer] provides no warranty or guarantee of the accuracy or completeness of information in this document.
--- NOTE | 2024-10-23 22:07 | PC.NURSE ---
Monitor shows R & L BBB, Mobitz type II, and tall peaked T waves. She is A & O x 4, and is dealing with several bouts of projectile vomiting. Feels lightheaded when in heart block.
[2024-10-23] MEDS: METOCLOPRAMIDE HCL 10 MG/2 ML VIAL IVP (22:10)
[2024-10-23 22:14] LABS: Lactate/Lactic Acid 1.2 mmol/L (0.4-2.0)
--- NOTE | 2024-10-23 22:31 | ECG_ITS ---
[facility] Test Date: 2024-10-23 Pat Name: ANAY NIEVES Department: Room: - Gender: Female Community Manager: : 1945 Requested By: ISSA NORTON Order Number: [id number] Reading MD: TJ MUÑOZ Measurements Intervals [place] Rate: 72 P: 18 ND: 200 QRS: 127 QRSD: 146 T: 49 QT: 428 QTc: 452 Interpretive Statements 1100 Sinus rhythm 1102 Sinus arrhythmia 2450 Right bundle branch block 2730 Left posterior fascicular block 9150 abnormal ECG Compared to ECG 10/23/2024 21:41:46 No significant changes Electronically Signed On 10-24-2024 19:24:13 EST by TJ MUÑOZ
[2024-10-23 22:34] LABS: Alanine Aminotransferase 23 U/L (14-59); Albumin Globulin Ratio 0.8; Albumin Level 3.4 g/dL (3.4-5.0); Alkaline Phosphatase 119 U/L (46-116); Anion Gap 17.3; Aspartate Amino Transferase 18 U/L (15-37); BUN Creatinine Ratio 33.1; Bilirubin Total 0.4 mg/dL (0.2-1.0); Calcium 9.2 mg/dL (8.5-10.1); Carbon Dioxide 23.1 mmol/L (21.0-32.0); Chloride 102 mmol/L (98-107); Estimated GFR (African America 14 (>=60 mL/min/1.73m^2); Estimated GFR (Non-African Ame 12 (>=60 mL/min/1.73m^2); Globulin 4.1 g/dL; Glucose 324 mg/dL (74-106); Potassium 5.4 mmol/L (3.5-5.1); Sodium 137 mmol/L (136-145); Total Protein 7.5 g/dL (6.4-8.2)
[2024-10-23] MEDS: MAGNESIUM SULFATE IN WATER 2 GM/50 ML PREMIX IV (22:36)
--- NOTE | 2024-10-23 23:12 | PC.NURSE ---
Pt continues to deny c/o CP and pressure. Remains nauseated, but states this has improved. no further emesis
[2024-10-23] MEDS: INSULIN REGULAR, HUMAN (100 UNIT/ML) 10 ML MDV 6 UNIT IV (23:20)
--- NOTE | 2024-10-23 23:31 | PC.NURSE ---
CT shows SDH and SAH. Neuro status reassessed and is as charted.
[2024-10-23 23:55] LABS: Glucometer 200 mg/dL (74-106)
--- NOTE | 2024-10-23 23:56 | PC.NURSE ---
[facility] [place] get transport for this pt to [facility].
[2024-10-24] VITALS (50 sets, daily range): BP systolic 108–179; BP diastolic 50–103; PULSE 0–145; O2SAT 91–98
--- NOTE | 2024-10-24 | PC.NURSE ---
Pt's notified of decision to transport to [facility]. Awaiting confirmation of a transport service.
--- NOTE | 2024-10-24 00:27 | PC.NURSE ---
Spoke with [facility] [employer] to give report and update on this trauma and cardiac pt. They refused MICU and Flight transport.
--- NOTE | 2024-10-24 00:43 | PC.NURSE ---
Spoke with [facility] [employer] [facility]. Awaiting a decision from flight.
--- NOTE | 2024-10-24 02:11 | ECG_ITS ---
[facility] Test Date: 2024-10-24 Pat Name: ANAY NIEVES Department: Room: - Gender: Female [employer] Driver: : 1945 Requested By: [id number] Order Number: [id number] Reading MD: TJ MUÑOZ Measurements Intervals [place] Rate: 67 P: 12 ME: 208 QRS: 104 QRSD: 136 T: 64 QT: 450 QTc: 466 Interpretive Statements 1100 Sinus rhythm 2450 Right bundle branch block 7100 Abnormal right axis deviation 9150 abnormal ECG Electronically Signed On 10-24-2024 19:25:18 EST by TJ MUÑOZ
[2024-10-24 02:15] LABS: Glucometer 183 mg/dL (74-106)
[2024-10-24 03:14] LABS: Alanine Aminotransferase 18 U/L (14-59); Albumin Globulin Ratio 0.9; Albumin Level 3.2 g/dL (3.4-5.0); Alkaline Phosphatase 91 U/L (46-116); Anion Gap 16.1; Aspartate Amino Transferase 18 U/L (15-37); BUN Creatinine Ratio 34.4; Bilirubin Total 0.4 mg/dL (0.2-1.0); Calcium 9.1 mg/dL (8.5-10.1); Carbon Dioxide 22.5 mmol/L (21.0-32.0); Chloride 105 mmol/L (98-107); Estimated GFR (African America 15 (>=60 mL/min/1.73m^2); Estimated GFR (Non-African Ame 13 (>=60 mL/min/1.73m^2); Globulin 3.7 g/dL; Glucose 211 mg/dL (74-106); Potassium 5.6 mmol/L (3.5-5.1); Sodium 138 mmol/L (136-145); Total Protein 6.9 g/dL (6.4-8.2); Troponin I High Sensitivity 33.5 pg/mL (4.0-51.3)
--- NOTE | 2024-10-24 04:17 | PC.NURSE ---
at 0400, pt had an extended episode of asystole.
[2024-10-24] MEDS: MIDAZOLAM HCL 100 MG in 0.9 % SODIUM CHLORIDE 80 ML IV (04:41)
--- NOTE | 2024-10-24 04:52 | PC.NURSE ---
pt received 1 mg of Atropine at 0400, another mg of Atropine at 040. One amp of bicarb at 040. 100 mg of calcium gluconate at 040. One amp of D50 at 0410. 4 mg of Zofran at 0415. Humulin R 10 units IVP at 0418. NS bolus one L started at 0420.
--- NOTE | 2024-10-24 05:07 | PC.NURSE ---
at 0445, Versed gtt started at 2 mg/hr and slowly titrated up to 5 mg/hr by 0508. This is due to TCP with MA at 112 rate is 68.
[2024-10-24] MEDS: FENTANYL CITRATE/PF 100 MCG/2 ML VIAL 50 MCG IV (05:14)
--- NOTE | 2024-10-24 05:24 | PC.NURSE ---
At 0400, pt lost consciousness and had an extended period of asystole. CPR initiated briefly, then pt regained consciousness. One mg of Atropine IVP given at 0400 and again at 0407 and pt regained a spontaneous rhythm of NS with episodes Mobitz type II. One amp of bicarb IVP given at 0410. Then 100 mg of calcium gluconate IVP at 0409. One amp of D50 IVP at 0410. Pt in and out of consciousness during the administration of these meds. Respirations were also assisted by RT with Bag Valve Mask at 25 Liter of o2. She did have some spontaneous respirations at this time. Transcutaneous pacer patches applied Anterior and Posterior and capture occurred with an mA at 62 a rate of 84. She was again alert and oriented. Pt began to vomit and was given 4 mg of Zofran IVP at 0415. was contacted and informed of pt condition and new transfer plans to [facility]. She again went unresponsive with what appeared to be Complete Heart Block and mA up to 80 with rate at 84. Humulin R 10 units given IV per Dr Marker verbal order at 0418. One liter NS bolus started at 0420. At 0430 MA up to 76 for capture, then at 0445 MA up to 82 rate down to 70. Pt was having periods of intrinsic rhythm in the 80s that appeared to be Normal Sinus Rhythm with tall peaked T waves. Another period of Complete Heart Block noted so mA was continuously readjusted to reach 118 with a rate of 70. When the mA was up to 84 at around 0445, she required a versed drip which was started at 2 mg/hr then titrated up to 5 mg/hr in order to better tolerate the Trans Cutaneous pacing. At 0514, she was given 50 mcg of [facility] and report was given to them per MD. Care relinquished to the crew. Primary Care RN Sana Minaya RN providing direct patient care for patient during above documented period.
--- NOTE | 2024-10-24 06:01 | PC.NURSE ---
Many transport companies were contacted. [facility], [facility], [place], and [facility]. It was stated that she did not meet MICU transfer requirements by [facility] and [facility], [place] was fully booked, and [facility] accepted. When [facility] crew arrived, report was given, and crew left with pt. Shortly after the crew departed, they brought her back to this ED because she went non-responsive and they state vfib was observed. All MICU transport companies called back and informed of ALS refusal to take this pt, and of the symptomatic increased frequency of Mobitz type II, and they state that pt does not meet criteria for MICU transport. Therefore, [facility] was contacted per staff and MD, [facility] her.
== END 2024-10-24 05:20 | disposition short-term general hospital (02) ==
PROVIDERS: Emergency Provider Emergency Medicine; PCP Internal Medicine
DX: S06.6XAA Traumatic subarachnoid hemorrhage with loss of consciousness status unknown, initial encounter (principal); I46.9 Cardiac arrest, cause unspecified; E87.5 Hyperkalemia; I44.1 Atrioventricular block, second degree; S06.5XAA Traumatic subdural hemorrhage with loss of consciousness status unknown, initial encounter; W18.39XA Other fall on same level, initial encounter; R11.2 Nausea with vomiting, unspecified; Z79.4 Long term (current) use of insulin; E11.22 Type 2 diabetes mellitus with diabetic chronic kidney disease; N18.4 Chronic kidney disease, stage 4 (severe); I51.9 Heart disease, unspecified; Z90.710 Acquired absence of both cervix and uterus; Z90.49 Acquired absence of other specified parts of digestive tract; I12.9 Hypertensive chronic kidney disease with stage 1 through stage 4 chronic kidney disease, or unspecified chronic kidney disease; I25.10 Atherosclerotic heart disease of native coronary artery without angina pectoris
CPT/HCPCS: 36415; 70450; 71045; 72125; 80053; 83605; 83690; 83880; 84484; 85025; 92950; 93005; 96361; 96365; 96375; 99285; J0171; J0461; J0612; J1817; J2250; J2405; J2765; J3010; J3475